=== PATIENT | female | born 1950 | race African-American/Black ===

== ENCOUNTER → 2016-03-22 | Emergency (ER) | payer MEDICARE, OTHER ==
[~2016-03-22] VITALS: Ht 170.2 cm; Wt 59.0 kg
[~2016-03-22] MED LIST: ACETAMINOPHEN-1 EAC1 ORAL; ACETAMINOPHEN-1 EAC2 ORAL; ALBUTEROL SULF8.5 GM INH; ALBUTEROL2.5 MG/3 M HHN; ALBUTEROL2.5 MG/3 M INH; ATARAX25 MG ORAL; AUGMENTIN 875-1 EAC1 ORAL; AZITHROMYCIN250 MG ORAL; Albuterol ud Inhalation HHN ONE; CAPTOPRIL PO; CAPTOPRIL5 GM MC; CIPROFLOXACIN500 M2 ORAL; COLACE100 MG ORAL; CORTISONE14 GM TP; FUROSEMIDE20 M1 ORAL; Ipratropium 0.02% Inh Soln 2.5ml UD HHN ONE; KEFLEX500 MG ORAL; LEVAQUIN500 MG ORAL; LEVAQUIN750 MG ORAL; LEVOFLOXAC250 MG/10 PO; MIRALAX17 G2 ORAL; NKM; NORCO 10/3251 EA ORAL; NORCO 5-325 TA1 EACH ORAL; NORCO 7.5-3251 EACH ORAL; Oxycodone/Acetaminophen 5-325 ORAL ONE; PEPCID20 MG ORAL; PERCOCET 5-3251 EACH ORAL; POTASSIUM CHLO20 ME1 ORAL; PREDNISONE10 M2 PO; PREDNISONE10 MG ORAL; PREDNISONE20 M1 PO; PREDNISONE20 MG ORAL; PREDNISONE5 MG ORAL; PREDNISONE50 MG ORAL; PredniSONE 20mg tab ORAL ONE; SOMA350 MG PO; TRAMADOL HCL50 MG ORAL; VENTOLIN HFA18 GM INH
[2016-03-22 06:33] VITALS: BP 204/118
--- NOTE | 2016-03-22 06:37 | Emergency Room Report ---
History of Present Illness General Chief Complaint: Pain Source: Patient Present Illness HPI Patient presents with lower back pain. She's had 2 back surgeries in the past. There is no specific trauma and she's been taking Tylenol No. 4 however it's not been helping adequately. The pain radiates down both legs. She states that she has degenerative disc disease and sciatica. She denies any fevers. She denies any incontinence, increased weakness, blood thinners, tumors or incontinence. There is no saddle numbness. The pain is 8/10, burning, constant and worsened when she's changing position. The patient also has lupus. She is taking medication for this. She says of bleeding from a lesion in her scalp. Some minimal bleeding. The patient also takes prednisone for her lupus. She is also on another medication that she is seeing a new doctor at this time. She denies dysuria or change in bowel habits. She walks with a walker She also complains but wheezing and problems with the right chest. She's not had colored phlegm. She uses an inhaler no nebulizer at home. To cigarette smoke around her but she has not smoked for many years. She does have a history of COPD. Allergies: Coded Allergies: KETOROLAC TROMETHAMINE (Verified Allergy, Severe, Anaphylaxis, 11/09/11) PENICILLINS (Verified Allergy, Severe, Anaphylaxis, 11/09/11) TETRACYCLINE (Verified Allergy, Severe, Anaphylaxis, 11/09/11) HALOPERIDOL (Verified Allergy, Intermediate, Anaphylaxis, 11/09/11) HALOPERIDOL LACTATE (Verified Allergy, Intermediate, Anaphylaxis, 11/09/11) ERYTHROMYCIN BASE (Verified Allergy, Mild, 07/15/13) AMPICILLIN (Verified Allergy, Unknown, 08/05/15) IBUPROFEN (Verified Allergy, Unknown, 08/05/15) Patient History Past Medical History: see triage record, other - lupus Past Surgical History: other - back surgery Social History: Reports: smoking - Prior Social History Narrative She came with her Last Menstrual Period: unk Now: No Reviewed Nursing Documentation: PMH: Agreed, PSxH: Agreed Nursing Documentation-PMH Hx Hypertension: Yes Hx Pacemaker: No Hx Asthma: No Hx COPD: Yes Hx Diabetes: No Hx Cancer: No Hx Gastrointestinal Problems: Yes - Hepatitis C, Gall bladder removed, additional abd surgury (ukn) Hx Dialysis: No Hx Neurological Problems: No - spine surgery in 1993 and 2011 Hx Cerebrovascular Accident: No Hx Seizures: Yes Review of Systems All Other Systems: negative except mentioned in HPI Physical Exam Vital Signs Date Time Temp Pulse Resp B/P Pulse Ox O2 Delivery O2 Flow Rate FiO2 03/22/16 06:21 98.4 110 22 95 Room Air 03/22/16 06:33 204/118 03/22/16 06:37 21 Sp02 EP Interpretation: reviewed, normal General Appearance: well appearing, no apparent distress, GCS 15 Head: normocephalic Eyes: bilateral eye PERRL, bilateral eye normal inspection ENT: moist mucus membranes, other - malar rash Neck: supple Respiratory: wheezing, expiration, inspiration Cardiovascular #1: tachycardia Cardiovascular #2: 2+ radial (R) Gastrointestinal: normal inspection, normal bowel sounds, non tender, no mass, non-distended Musculoskeletal: gait/station normal, normal range of motion, other - Paraspinous muscle tenderness and lumbar tenderness. Range of motion is good. Surgical scar Neurologic: alert, oriented x3, motor strength/tone normal, DTRs symmetric, sensory intact, cerebellar normal, normal gait, speech normal Psychiatric: mood/affect normal Skin: warm/dry, other - Alopecia in the geographic distribution with some excoriation and area where there had been waiting on the scalp. She also has a malar rash. Medical Decision Making Diagnostic Impression: Primary Impression: SLE exacerbation Additional Impressions: Back pain Qualified Codes: M54.41 - Lumbago with sciatica, right side; M54.42 - Lumbago with sciatica, left side; G89.29 - Other chronic pain Bronchospasm ER Course The patient presents with worsening back pain. She has a history of lupus. There is no specific causative event. Differential includes strain, worsening back pain, degenerative disc disease, UTI and exacerbation of lupus. In addition she has wheezing and a cough. Differential includes pneumonia, COPD exacerbation and bronchitis. She does not have symptoms of influenza this time. Laboratory will be obtained, an EKG will be obtained and also chest x- ray. She'll be treated with albuterol and Atrovent and prednisone. In addition she'll be given a Percocet orally. Labs significant for elevated ESR. No evidence of infection. Patient sleeping, but when awakened, she requests more pain medicine. Second percocet given. Improved. Patient stable for outpatient observation and treatment. Laboratory Tests Test 03/22/16 07:05 03/22/16 08:15 Urine Color Yellow Urine Appearance Slightly cloudy Urine pH 6 (4.5-8.0) Urine Specific [place] 1.010 (1.005-1.035) Urine Protein 2+ (NEGATIVE) H Urine Glucose (UA) Negative (NEGATIVE) Urine Ketones Negative (NEGATIVE) Urine Occult Blood Negative (NEGATIVE) Urine Nitrite Negative (NEGATIVE) Urine Bilirubin Negative (NEGATIVE) Urine Urobilinogen 1 MG/DL (0.0-1.0) H Urine Leukocyte Esterase 1+ (NEGATIVE) H Urine RBC 0-2 /HPF (0 - 2) Urine WBC 2-4 /HPF (0 - 2) Urine Squamous Epithelial Cells Moderate /LPF (NONE/OCC) H Urine Bacteria Few /HPF (NONE) Urine Opiates Screen Positive (NEGATIVE) H Urine Barbiturates Screen Negative (NEGATIVE) Phencyclidine (PCP) Screen Negative (NEGATIVE) Urine Amphetamines Screen Negative (NEGATIVE) Urine Benzodiazepines Screen Negative (NEGATIVE) Urine Cocaine Screen Negative (NEGATIVE) Urine Marijuana (THC) Screen Negative (NEGATIVE) White Blood Count 4.2 K/UL (4.8-10.8) L Red Blood Count 4.25 M/UL (4.20-5.40) Hemoglobin 13.6 G/DL (12.0-16.0) Hematocrit 43.4 % (37.0-47.0) Mean Corpuscular Volume 102 FL (80-99) H Mean Corpuscular Hemoglobin 32.1 PG (27.0-31.0) H Mean Corpuscular Hemoglobin Concent 31.4 G/DL (32.0-36.0) L Red Cell Distribution Width 15.5 % (11.6-14.8) H Platelet Count 215 K/UL (150-450) Mean Platelet Volume 6.7 FL (6.5-10.1) Neutrophils (%) (Auto) 49.4 % (45.0-75.0) Lymphocytes (%) (Auto) 41.3 % (20.0-45.0) Monocytes (%) (Auto) 8.0 % (1.0-10.0) Eosinophils (%) (Auto) 0.2 % (0.0-3.0) Basophils (%) (Auto) 1.1 % (0.0-2.0) Erythrocyte Sedimentation Rate 48 MM/HR (0-30) H Sodium Level 143 mEQ/L (135-145) Potassium Level 3.3 mEQ/L (3.4-4.9) L Chloride Level 101 mEQ/L (98-107) Carbon Dioxide Level 26 mEQ/L (20-30) Anion Gap 16 (5-15) H Blood Urea Nitrogen 10 mg/dL (7-23) Creatinine 0.7 mg/dL (0.5-0.9) Estimate Glomerular Filtration Rate > 60 mL/min (>60) Glucose Level 114 mg/dL (74-106) H Calcium Level 9.6 mg/dL (8.6-10.2) Total Bilirubin 0.7 mg/dL (0.0-1.2) Aspartate Amino Transferase (AST) 33 U/L (5-40) Alanine Aminotransferase (ALT) 31 U/L (3-33) Alkaline Phosphatase 97 U/L (35-104) Total Creatine Kinase 74 U/L (26-140) Troponin I < 0.30 ng/mL (<=0.30) Pro-B-Type Natriuretic Peptide 221 pg/mL (0-125) H Total Protein 7.6 g/dL (6.6-8.7) Albumin 4.1 g/dL (3.5-5.2) Globulin 3.5 g/dL Albumin/Globulin Ratio 1.1 (1.0-2.7) EKG Diagnostic Results Rate: normal Rhythm: NSR ST Segments: no acute changes - LVH Rhythm Strip Diag. Results EP Interpretation: yes Rhythm: NSR, other - Rate 79, PVC Chest X-Ray Diagnostic Results EP Interpretation: Yes Findings: no consolidation, no effusion, no pneumothorax, no acute cardiopulmonary disease Number of Views: 1 Last Vital Signs Date Time Temp Pulse Resp B/P Pulse Ox O2 Delivery O2 Flow Rate FiO2 03/22/16 07:20 98.4 03/22/16 07:20 83 17 188/83 100 Room Air 03/22/16 06:59 21 Status: improved Disposition: HOME, SELF-CARE Condition: Improved Scripts Tramadol Hcl* (ULTRAM*) 50 Mg Tablet 50 MG ORAL Q6H Y for For Pain, #16 TAB 0 Refills Prov: Karl Guan M.D. 03/22/16 Prednisone* (PREDNISONE*) 10 Mg Tablet 10 MG ORAL DAILY, #22 TAB 0 Refills 4 po QD X 2, 3 po QD X 2, 2 po QD X 2, 1 po QD X 4 Prov: Karl Guan M.D. 03/22/16 Referrals: NOT CHOSEN KELSEA/,REFERRING (PCP) Karl Guan M.D. Mar 22, 2016 06:37
[2016-03-22 07:20] VITALS: BP 188/83
[2016-03-22 07:31] LABS: KETONES,URINE NEGATIVE (NEGATIVE); LEUKOCYTE ESTERASE ,URINE 1+ (NEGATIVE); NITRITE,URINE NEGATIVE (NEGATIVE); PH,URINE 6 (4.5-8.0); PROTEIN,URINE 2+ (NEGATIVE); UROBILINOGEN,URINE 1 MG/DL (0.0-1.0)
[2016-03-22 07:48] LABS: APPEARANCE,URINE SLIGHTLY CLOUDY
[2016-03-22 07:49] LABS: BACTERIA,URINE FEW /HPF; RBC,URINE 0-2 /HPF (0 - 2); SQUAMOUS EPITHELIAL CELL,UR MODERATE /LPF (NONE/OCC)
[2016-03-22 08:31] LABS: BASOPHILS % (AUTO) 1.1 % (0.0-2.0); EOSINOPHILS % (AUTO) 0.2 % (0.0-3.0); LYMPHOCYTES % (AUTO) 41.3 % (20.0-45.0); MEAN CORPUSCULAR HEMOGLOBIN 32.1 PG (27.0-31.0); MEAN CORPUSCULAR HGB CONC 31.4 G/DL (32.0-36.0); MEAN CORPUSCULAR VOLUME 102 FL (80-99); MEAN PLATELET VOLUME 6.7 FL (6.5-10.1); NEUTROPHILS % (AUTO) 49.4 % (45.0-75.0); PLATELET COUNT 215 K/UL (150-450); RED BLOOD COUNT 4.25 M/UL (4.20-5.40); RED CELL DISTRIBUTION WIDTH 15.5 % (11.6-14.8); WHITE BLOOD COUNT 4.2 K/UL (4.8-10.8)
[2016-03-22 08:46] LABS: ALANINE AMINOTRANSFERASE 31 U/L (3-33); ALBUMIN/GLOBULIN RATIO 1.1 (1.0-2.7); ANION GAP 16 (5-15); ASPARTATE AMINO TRANSFERASE 33 U/L (5-40); CALCIUM 9.6 mg/dL (8.6-10.2); CARBON DIOXIDE 26 mEQ/L (20-30); CHLORIDE 101 mEQ/L (98-107); CREATININE 0.7 mg/dL (0.5-0.9); GLOMERULAR FILTRATION RATE > 60 mL/min (>60); HEMOLYSIS 3; POTASSIUM 3.3 mEQ/L (3.4-4.9); SODIUM 143 mEQ/L (135-145); TOTAL PROTEIN 7.6 g/dL (6.6-8.7)
[2016-03-22 08:53] LABS: TROPONIN I < 0.30 ng/mL (<=0.30)
[2016-03-22 09:41] LABS: ERYTHROCYTE SEDIMENTATION RATE 48 MM/HR (0-30)
--- NOTE | 2016-03-22 14:15 | Diagnostic Imaging Report ---
Indication: COUGH Technique: One view of the chest Comparison: 12/22/2015 Findings: Atelectatic changes are seen in the lung bases. The heart size is normal. The aorta is tortuous and calcified. The heart size is normal. No significant change Impression: No acute process
--- NOTE | 2016-04-23 03:26 | Cardiology Report ---
APPROVED REPORT EKG Measurement Heart [id number] Sinus rhythm with occasional premature ventricular complexes Left ventricular hypertrophy with repolarization abnormality Abnormal ECG
== END | disposition home or self-care (01) ==
LOC: EMR 06:25
DX: M32.9 Systemic lupus erythematosus, unspecified (principal); M54.41 Lumbago with sciatica, right side; M54.42 Lumbago with sciatica, left side; G89.29 Other chronic pain; J98.01 Acute bronchospasm; B19.20 Unspecified viral hepatitis C without hepatic coma; Z90.49 Acquired absence of other specified parts of digestive tract; J44.9 Chronic obstructive pulmonary disease, unspecified; I10 Essential (primary) hypertension; Z88.6 Allergy status to analgesic agent; Z88.0 Allergy status to penicillin; Z88.1 Allergy status to other antibiotic agents; Z88.8 Allergy status to other drugs, medicaments and biological substances
CPT/HCPCS: 36415; 71010; 80053; 80300; 81003; 82550; 83880; 84484; 85025; 85651; 93005; 94640; 94664; 99284

== ENCOUNTER 2016-06-09 06:09 | Emergency (ER) | payer MEDICARE, OTHER ==
[~2016-06-09] VITALS: Ht 167.6 cm; Wt 59.0 kg
[~2016-06-09 06:09] MED LIST changes: -Albuterol ud Inhalation HHN ONE; -Ipratropium 0.02% Inh Soln 2.5ml UD HHN ONE; -Oxycodone/Acetaminophen 5-325 ORAL ONE; -PredniSONE 20mg tab ORAL ONE
[2016-06-09 06:15] VITALS: BP 171/90
[2016-06-09] MEDS ORDERED: Morphine Sulfate 4mg/ml Inj IVP ONE ×2 (06:30→08:15)
[2016-06-09] MEDS ORDERED: Solu-MEDROL 125mg Inj IVP ONE (06:30)
--- NOTE | 2016-06-09 06:50 | Emergency Room Report ---
History of Present Illness General Chief Complaint: General Complaint Source: Patient Present Illness HPI The patient presents with shortness of breath for 3 days. It's intermittent and dyspnea on exertion. History of lupus and believes that it's related to pain as opposed to any problems heart and lungs. She hasn't had any fevers or productive cough. She also has a history of COPD. She's taking prednisone currently for the lupus and also her lungs. There's no productive phlegm. There's no chest pressure or pain with exertion. It's worse and when she has more pain in her joints and also her abdomen. Chest nausea vomiting diarrhea dysuria. No fever or chills. Pain is 8/10 constant and not radiating. She's been taking tyl #4 at home No rashes aside from her usual lupus rashes in her scalp and across her nose. The lupus rashes are unchanged although she says it is more swelling there. There is no drainage. Has chronic lumbar pain after having 2 back surgeries. She uses a walker. The weakness in her lower extremities is not been changed. She is seeing a gag writer next Monday. Allergies: Coded Allergies: KETOROLAC TROMETHAMINE (Verified Allergy, Severe, Anaphylaxis, 11/09/11) PENICILLINS (Verified Allergy, Severe, Anaphylaxis, 11/09/11) TETRACYCLINE (Verified Allergy, Severe, Anaphylaxis, 11/09/11) HALOPERIDOL (Verified Allergy, Intermediate, Anaphylaxis, 11/09/11) HALOPERIDOL LACTATE (Verified Allergy, Intermediate, Anaphylaxis, 11/09/11) ERYTHROMYCIN BASE (Verified Allergy, Mild, 07/15/13) AMPICILLIN (Verified Allergy, Unknown, 08/05/15) IBUPROFEN (Verified Allergy, Unknown, 08/05/15) Patient History Past Medical History: see triage record Past Surgical History: other - lamenectomy Social History Narrative brought by Now: No Reviewed Nursing Documentation: PMH: Agreed, PSxH: Agreed Nursing Documentation-PMH Hx Hypertension: Yes Hx Pacemaker: No Hx Asthma: No Hx COPD: Yes Hx Diabetes: No Hx Cancer: No Hx Gastrointestinal Problems: Yes - Hepatitis C, Gall bladder removed, additional abd surgury (ukn) Hx Dialysis: No Hx Neurological Problems: No - spine surgery in 1993 and 2011 Hx Cerebrovascular Accident: No Hx Seizures: Yes Review of Systems All Other Systems: negative except mentioned in HPI Physical Exam Vital Signs Date Time Temp Pulse Resp B/P Pulse Ox O2 Delivery O2 Flow Rate FiO2 06/09/16 06:12 98.8 90 22 188/91 97 Room Air Sp02 EP Interpretation: reviewed, normal General Appearance: well appearing, no apparent distress, GCS 15 Head: normocephalic Eyes: bilateral eye PERRL, bilateral eye normal inspection ENT: moist mucus membranes Neck: supple Respiratory: lungs clear, normal breath sounds Cardiovascular #1: regular rate, rhythm Cardiovascular #2: 2+ radial (R) Gastrointestinal: normal inspection, normal bowel sounds, non tender, no mass, non-distended Musculoskeletal: digits/nails normal, gait/station normal, normal range of motion, other - Genitalia is without erythema or warmth. Range of motion is good. She's chronic back pain is muscular spasm in the lumbar area. Neurologic: alert, oriented x3, grossly normal Psychiatric: mood/affect normal Skin: other - malar and sclap rashes, no erythema or fluctuance - lame scar back Medical Decision Making Diagnostic Impression: Primary Impression: Exacerbation of chronic pain Additional Impression: Lupus Qualified Codes: M32.8 - Other forms of systemic lupus erythematosus ER Course Patient presents with dyspnea that she feels is related to her lupus flare. The productive cough. Differential includes pneumonia, bronchitis, exacerbation of COPD, pleurisy costochondritis, exacerbation of lupus. The patient was evaluated EKG, labs chest x-ray. Retrieves IV hydration, Solu- Medrol and also analgesia. EKG and labs unremarkable. Improved with analgesia and solumedrol. Ambulatory without dyspnea. Patient stable for outpatient observation and treatment. Laboratory Tests Test 06/09/16 06:45 White Blood Count 4.2 K/UL (4.8-10.8) L Red Blood Count 4.12 M/UL (4.20-5.40) L Hemoglobin 13.4 G/DL (12.0-16.0) Hematocrit 42.5 % (37.0-47.0) Mean Corpuscular Volume 103 FL (80-99) H Mean Corpuscular Hemoglobin 32.6 PG (27.0-31.0) H Mean Corpuscular Hemoglobin Concent 31.5 G/DL (32.0-36.0) L Red Cell Distribution Width 16.8 % (11.6-14.8) H Platelet Count 225 K/UL (150-450) Mean Platelet Volume 6.3 FL (6.5-10.1) L Neutrophils (%) (Auto) 49.8 % (45.0-75.0) Lymphocytes (%) (Auto) 40.2 % (20.0-45.0) Monocytes (%) (Auto) 8.5 % (1.0-10.0) Eosinophils (%) (Auto) 0.7 % (0.0-3.0) Basophils (%) (Auto) 0.8 % (0.0-2.0) Urine Color Pale yellow Urine Appearance Clear Urine pH 6.5 (4.5-8.0) Urine Specific [place] 1.010 (1.005-1.035) Urine Protein 2+ (NEGATIVE) H Urine Glucose (UA) Negative (NEGATIVE) Urine Ketones Negative (NEGATIVE) Urine Occult Blood Negative (NEGATIVE) Urine Nitrite Negative (NEGATIVE) Urine Bilirubin Negative (NEGATIVE) Urine Urobilinogen Normal MG/DL (0.0-1.0) Urine Leukocyte Esterase Negative (NEGATIVE) Urine RBC 2-4 /HPF (0 - 2) H Urine WBC 0-2 /HPF (0 - 2) Urine Squamous Epithelial Cells Many /LPF (NONE/OCC) H Urine Bacteria Occasional /HPF (NONE) Sodium Level 145 mEQ/L (135-145) Potassium Level 3.2 mEQ/L (3.4-4.9) L Chloride Level 104 mEQ/L (98-107) Carbon Dioxide Level 25 mEQ/L (20-30) Anion Gap 16 (5-15) H Blood Urea Nitrogen 11 mg/dL (7-23) Creatinine 0.7 mg/dL (0.5-0.9) Estimate Glomerular Filtration Rate > 60 mL/min (>60) Glucose Level 89 mg/dL (74-106) Calcium Level 8.9 mg/dL (8.6-10.2) Total Bilirubin 0.6 mg/dL (0.0-1.2) Aspartate Amino Transferase (AST) 24 U/L (5-40) Alanine Aminotransferase (ALT) 12 U/L (3-33) Alkaline Phosphatase 82 U/L (35-104) Total Creatine Kinase 142 U/L (26-140) H Troponin I < 0.30 ng/mL (<=0.30) Pro-B-Type Natriuretic Peptide 170 pg/mL (0-125) H Total Protein 7.1 g/dL (6.6-8.7) Albumin 4.2 g/dL (3.5-5.2) Globulin 2.9 g/dL Albumin/Globulin Ratio 1.4 (1.0-2.7) Urine Opiates Screen Positive (NEGATIVE) H Urine Barbiturates Screen Negative (NEGATIVE) Phencyclidine (PCP) Screen Negative (NEGATIVE) Urine Amphetamines Screen Negative (NEGATIVE) Urine Benzodiazepines Screen Negative (NEGATIVE) Urine Cocaine Screen Negative (NEGATIVE) Urine Marijuana (THC) Screen Negative (NEGATIVE) EKG Diagnostic Results Rate: normal Rhythm: NSR ST Segments: no acute changes - lvh Rhythm Strip Diag. Results EP Interpretation: yes Rhythm: NSR, no PVC's, no ectopy Chest X-Ray Diagnostic Results EP Interpretation: Yes Findings: no consolidation, no effusion, no pneumothorax, no acute cardiopulmonary disease Number of Views: 1 Last Vital Signs Date Time Temp Pulse Resp B/P Pulse Ox O2 Delivery O2 Flow Rate FiO2 06/09/16 08:51 98.8 75 16 160/82 98 Room Air Status: improved Disposition: HOME, SELF-CARE Condition: Improved Karl Guan M.D. Jun 09, 2016 06:50
[2016-06-09 07:10] LABS: BASOPHILS % (AUTO) 0.8 % (0.0-2.0); EOSINOPHILS % (AUTO) 0.7 % (0.0-3.0); LYMPHOCYTES % (AUTO) 40.2 % (20.0-45.0); MEAN CORPUSCULAR HEMOGLOBIN 32.6 PG (27.0-31.0); MEAN CORPUSCULAR HGB CONC 31.5 G/DL (32.0-36.0); MEAN CORPUSCULAR VOLUME 103 FL (80-99); MEAN PLATELET VOLUME 6.3 FL (6.5-10.1); MONOCYTES % (AUTO) 8.5 % (1.0-10.0); NEUTROPHILS % (AUTO) 49.8 % (45.0-75.0); PLATELET COUNT 225 K/UL (150-450); RED BLOOD COUNT 4.12 M/UL (4.20-5.40); RED CELL DISTRIBUTION WIDTH 16.8 % (11.6-14.8); WHITE BLOOD COUNT 4.2 K/UL (4.8-10.8)
[2016-06-09 07:16] LABS: APPEARANCE,URINE CLEAR; KETONES,URINE NEGATIVE (NEGATIVE); LEUKOCYTE ESTERASE ,URINE NEGATIVE (NEGATIVE); NITRITE,URINE NEGATIVE (NEGATIVE); PH,URINE 6.5 (4.5-8.0); PROTEIN,URINE 2+ (NEGATIVE); UROBILINOGEN,URINE NORMAL MG/DL (0.0-1.0)
[2016-06-09 07:18] LABS: TROPONIN I < 0.30 ng/mL (<=0.30)
[2016-06-09 07:20] LABS: ALANINE AMINOTRANSFERASE 12 U/L (3-33); ALBUMIN/GLOBULIN RATIO 1.4 (1.0-2.7); ANION GAP 16 (5-15); ASPARTATE AMINO TRANSFERASE 24 U/L (5-40); CALCIUM 8.9 mg/dL (8.6-10.2); CARBON DIOXIDE 25 mEQ/L (20-30); CHLORIDE 104 mEQ/L (98-107); CREATININE 0.7 mg/dL (0.5-0.9); GLOMERULAR FILTRATION RATE > 60 mL/min (>60); HEMOLYSIS 5; POTASSIUM 3.2 mEQ/L (3.4-4.9); SODIUM 145 mEQ/L (135-145); TOTAL PROTEIN 7.1 g/dL (6.6-8.7)
[2016-06-09 07:39] LABS: BACTERIA,URINE OCCASIONAL /HPF; SQUAMOUS EPITHELIAL CELL,UR MANY /LPF (NONE/OCC); WBC,URINE 0-2 /HPF (0 - 2)
[2016-06-09 08:50] VITALS: BP 160/82
[2016-06-09 08:51] VITALS: BP 160/82
--- NOTE | 2016-06-09 10:29 | Diagnostic Imaging Report ---
Indication: Chest pain Technique: One view of the chest Comparison: 03/22/2016 Findings: Bilateral basilar reticular appearing opacities and bronchial wall thickening appears similar to the prior study, likely chronic. A large bulla is again demonstrated in the right lung apex. The heart is upper limits normal in size. Aorta tortuous and calcified. Upper mediastinum is unremarkable. Findings are unchanged Impression: Chronic appearing findings as noted, likely representing COPD changes. Superimposed acute disease at either lung base not completely excludable, however. Recommend correlation with clinical findings No definite acute process otherwise
--- NOTE | 2016-06-13 22:40 | Cardiology Report ---
APPROVED REPORT EKG Measurement Heart [id number] ID [id number] Normal sinus rhythm Left ventricular hypertrophy with repolarization abnormality Abnormal ECG
== END 2016-06-09 08:54 | disposition home or self-care (01) ==
LOC: EMR 06:35
DX: R52 Pain, unspecified (principal); G89.29 Other chronic pain; M32.8 Other forms of systemic lupus erythematosus; I10 Essential (primary) hypertension; J44.9 Chronic obstructive pulmonary disease, unspecified; B19.20 Unspecified viral hepatitis C without hepatic coma; Z90.49 Acquired absence of other specified parts of digestive tract; Z88.6 Allergy status to analgesic agent; Z88.0 Allergy status to penicillin; Z88.1 Allergy status to other antibiotic agents; Z88.8 Allergy status to other drugs, medicaments and biological substances
CPT/HCPCS: 36415; 71010; 80053; 80300; 81003; 82550; 83880; 84484; 85025; 93005; 96374; 96375; 99284; J2270; J2405; J2930

== ENCOUNTER 2016-06-17 06:11 | Emergency (ER) | payer MEDICARE, OTHER ==
[~2016-06-17] VITALS: Ht 167.6 cm; Wt 59.0 kg
[2016-06-17] MEDS ORDERED: Morphine Sulfate 4mg/ml Inj IM ONE (07:00)
--- NOTE | 2016-06-17 08:14 | Emergency Room Report ---
History of Present Illness General Chief Complaint: General Complaint Source: Patient Present Illness HPI Patient present with complaints of diffuse body pain Reports that she feels that her lupus is flaring up Denies any vomiting or diarrhea Denies any chest pain Denies any shortness of breath Patient has previous history of COPD as well Upon initial evaluation patient shows me a paper with a strike warfare/missile systems officer name and contact information reports that she is going to be in touch with that physician Denies any fall or trauma denies any fevers or chills Pain is 5/10 diffuse Mainly in the shoulders lower back Bilateral legs Allergies: Coded Allergies: KETOROLAC TROMETHAMINE (Verified Allergy, Severe, Anaphylaxis, 11/09/11) PENICILLINS (Verified Allergy, Severe, Anaphylaxis, 11/09/11) TETRACYCLINE (Verified Allergy, Severe, Anaphylaxis, 11/09/11) HALOPERIDOL (Verified Allergy, Intermediate, Anaphylaxis, 11/09/11) HALOPERIDOL LACTATE (Verified Allergy, Intermediate, Anaphylaxis, 11/09/11) ERYTHROMYCIN BASE (Verified Allergy, Mild, 07/15/13) AMPICILLIN (Verified Allergy, Unknown, 08/05/15) IBUPROFEN (Verified Allergy, Unknown, 08/05/15) Patient History Past Medical History: see triage record Pertinent Family History: none Last Menstrual Period: Menopause Now: No Reviewed Nursing Documentation: PMH: Agreed, PSxH: Agreed Nursing Documentation-PMH Hx Hypertension: Yes Hx Pacemaker: No Hx Asthma: No Hx COPD: Yes Hx Diabetes: No Hx Cancer: No Hx Gastrointestinal Problems: Yes - Hepatitis C, Gall bladder removed, additional abd surgury (ukn) Hx Dialysis: No Hx Neurological Problems: No - spine surgery in 1993 and 2011 Hx Cerebrovascular Accident: No Hx Seizures: Yes Review of Systems All Other Systems: negative except mentioned in HPI Physical Exam Vital Signs Date Time Temp Pulse Resp B/P Pulse Ox O2 Delivery O2 Flow Rate FiO2 06/17/16 06:19 98.4 109 16 172/82 99 Room Air Sp02 EP Interpretation: reviewed, normal General Appearance: well appearing, no apparent distress Head: normocephalic, atraumatic Eyes: bilateral eye EOMI, bilateral eye PERRL ENT: hearing grossly normal, normal pharynx, TMs + canals normal, uvula midline Neck: full range of motion, supple, no meningismus, no bony tend Respiratory: no rhonchi, no respiratory distress, no retraction, no accessory muscle use, crackles - Fine crackles bilaterally Cardiovascular #1: normal peripheral pulses, regular rate, rhythm, no edema, no gallop, no JVD, no murmur Gastrointestinal: normal bowel sounds, non tender, soft, no mass, no organomegaly, non-distended, no guarding, no hernia, no pulsatile mass, no rebound Genitourinary: no CVA tenderness Musculoskeletal: normal inspection - Patient ambulate with a walker no obvious focal deficit Neurologic: oriented x3, responsive, back seam stitcher III-XII nml as tested, motor strength/ tone normal, sensory intact Psychiatric: mood/affect normal Skin: palpation normal, other - Similar to previous rash, plaque over the nasal bridge area Lymphatic: normal inspection, no adenopathy Medical Decision Making Diagnostic Impression: Primary Impression: myalgia ER Course Multiple differentials were considered Including but not limited to lupus flare, sepsis, rhabdomyolysis Patient is otherwise hemodynamically stable has a benign medical evaluation I did review the patient on [employer] system and the patient has had multiple medications filled by multiple providers this is concerning Patient was provided pain medicine in the emergency room However I did discuss with her the need for outpatient followup, and appropriate pain management care as needed Last Vital Signs Date Time Temp Pulse Resp B/P Pulse Ox O2 Delivery O2 Flow Rate FiO2 06/17/16 06:19 98.4 109 16 172/82 99 Room Air Status: improved Disposition: HOME, SELF-CARE Condition: Improved Referrals: NOT CHOSEN [facility]/MD,REFERRING (PCP) Patient Instructions: Muscle Pain, Adult, Systemic Lupus Erythematosus, Adult Additional Instructions: Patient is provided with the discharge instructions notified to follow up with primary doctor in the next 2-3 days otherwise return to the er with any worsening symptoms. Please note that this report is being documented using [employer] technology. This can lead to erroneous entry secondary to incorrect interpretation by the dictating instrument. PATY BARRETT D.O. Jun 17, 2016 08:14
[2016-06-17 08:52] VITALS: BP 145/65
[2016-06-17 08:53] VITALS: BP 145/65
== END 2016-06-17 08:54 | disposition home or self-care (01) ==
LOC: EMR 07:09
DX: M79.1 Myalgia (principal); J44.9 Chronic obstructive pulmonary disease, unspecified; I10 Essential (primary) hypertension; Z86.19 Personal history of other infectious and parasitic diseases; Z90.49 Acquired absence of other specified parts of digestive tract; Z88.6 Allergy status to analgesic agent; Z88.0 Allergy status to penicillin; Z88.8 Allergy status to other drugs, medicaments and biological substances
CPT/HCPCS: 96372; 99283; J2270

== ENCOUNTER 2016-07-25 06:35 | Emergency (ER) | payer MEDICARE, OTHER ==
[~2016-07-25] VITALS: Ht 170.2 cm; Wt 58.5 kg
[2016-07-25] MEDS ORDERED: HYDROmorphone 1mg/ml Carpuject IVP ONE (06:45)
[2016-07-25] MEDS ORDERED: Solu-MEDROL 125mg Inj IVP ONE (06:45)
--- NOTE | 2016-07-25 06:52 | Emergency Room Report ---
History of Present Illness General Chief Complaint: Generalized Weakness Source: Patient Present Illness HPI The patient presents with body pain. All of her joints are sore at this time. She was recently hospitalized at [facility] for exacerbation of her lupus. She was hospitalized four and a half days. She was discharged on Monday, it is Monday today. Denies any fever. The patient also complains about right-sided headache and altered vision. She says it's somewhat blurry. It starts where she has a rash on her right parietal area of. Radiates into her face. She denies any fevers or chills. There's no cough. Chest chest pain, nausea, vomiting, diarrhea. Denies dysuria. The joints involved with the pain are her wrists knees and ankles. Addition she feels generalized weakness. She is ambulatory. She walks with a walker. She states she can't fill her prescriptions until July 28. Allergies: Coded Allergies: KETOROLAC TROMETHAMINE (Verified Allergy, Severe, Anaphylaxis, 11/09/11) PENICILLINS (Verified Allergy, Severe, Anaphylaxis, 11/09/11) TETRACYCLINE (Verified Allergy, Severe, Anaphylaxis, 11/09/11) HALOPERIDOL (Verified Allergy, Intermediate, Anaphylaxis, 11/09/11) HALOPERIDOL LACTATE (Verified Allergy, Intermediate, Anaphylaxis, 11/09/11) ERYTHROMYCIN BASE (Verified Allergy, Mild, 07/15/13) AMPICILLIN (Verified Allergy, Unknown, 08/05/15) IBUPROFEN (Verified Allergy, Unknown, 08/05/15) Patient History Past Medical History: see triage record Social History: Denies: smoking - Prior smoker Social History Narrative Last Menstrual Period: NONE Reviewed Nursing Documentation: PMH: Agreed, PSxH: Agreed Nursing Documentation-PMH Hx Hypertension: Yes Hx Pacemaker: No Hx Asthma: No Hx COPD: Yes - EMPHYSEMA Hx Diabetes: No Hx Cancer: No Hx Dialysis: No Hx Cerebrovascular Accident: No Hx Seizures: Yes Review of Systems All Other Systems: negative except mentioned in HPI Physical Exam Vital Signs Date Time Temp Pulse Resp B/P Pulse Ox O2 Delivery O2 Flow Rate FiO2 07/25/16 06:40 98.4 100 22 151/83 94 Room Air Sp02 EP Interpretation: reviewed, normal General Appearance: well appearing, no apparent distress, GCS 15 Head: normocephalic Eyes: bilateral eye PERRL, bilateral eye normal inspection ENT: moist mucus membranes Neck: supple Respiratory: lungs clear, normal breath sounds Cardiovascular #1: regular rate, rhythm Cardiovascular #2: 2+ radial (R) Gastrointestinal: normal inspection, normal bowel sounds, non tender, no mass, non-distended Musculoskeletal: back normal, gait/station normal - With walker bent over, normal range of motion Neurologic: alert, oriented x3, motor strength/tone normal, DTRs symmetric, sensory intact Psychiatric: anxious Skin: normal inspection, warm/dry, other - malar rash and alopecia Medical Decision Making Diagnostic Impression: Primary Impression: Lupus Qualified Codes: M32.19 - Other organ or system involvement in systemic lupus erythematosus Additional Impressions: Blurred vision Drug-seeking behavior Headache Qualified Codes: R51 - Headache Lupus alopecia ER Course Patient presents with joint pain and headache with weakness. History Lupus. Differential includes exacerbation of lupus, occult infection, migraine, cluster headache amongst others. Evaluation with the with labs including EKG and urinalysis. Also we will obtain a chest x-ray a CT of the head. To be treated with IV hydration some Medrol and analgesia. Labs significant for nl WBC and ESR. CT no lesions. EKG and CXR unremarkable. Improved with treatment. Requested more pain medicine (when told po instead of parenteral, she argued to have IV). Patient stable for outpatient observation and treatment. Laboratory Tests Test 07/25/16 07:19 White Blood Count 5.3 K/UL (4.8-10.8) Red Blood Count 4.67 M/UL (4.20-5.40) Hemoglobin 15.1 G/DL (12.0-16.0) Hematocrit 48.9 % (37.0-47.0) H Mean Corpuscular Volume 105 FL (80-99) H Mean Corpuscular Hemoglobin 32.4 PG (27.0-31.0) H Mean Corpuscular Hemoglobin Concent 30.9 G/DL (32.0-36.0) L Red Cell Distribution Width 15.2 % (11.6-14.8) H Platelet Count 289 K/UL (150-450) Mean Platelet Volume 5.9 FL (6.5-10.1) L Neutrophils (%) (Auto) 38.6 % (45.0-75.0) L Lymphocytes (%) (Auto) 51.6 % (20.0-45.0) H Monocytes (%) (Auto) 6.8 % (1.0-10.0) Eosinophils (%) (Auto) 1.6 % (0.0-3.0) Basophils (%) (Auto) 1.4 % (0.0-2.0) Erythrocyte Sedimentation Rate 30 MM/HR (0-30) Prothrombin Time 12.3 SEC (9.30-11.50) H Prothrombin Time INR 1.2 (0.9-1.1) H PTT 26 SEC (23-33) Urine Color Yellow Urine Appearance Clear Urine pH 6 (4.5-8.0) Urine Specific [place] 1.015 (1.005-1.035) Urine Protein 1+ (NEGATIVE) H Urine Glucose (UA) Negative (NEGATIVE) Urine Ketones Negative (NEGATIVE) Urine Occult Blood Negative (NEGATIVE) Urine Nitrite Negative (NEGATIVE) Urine Bilirubin Negative (NEGATIVE) Urine Urobilinogen 4 MG/DL (0.0-1.0) H Urine Leukocyte Esterase 1+ (NEGATIVE) H Urine RBC 0-2 /HPF (0 - 2) Urine WBC 2-4 /HPF (0 - 2) Urine Squamous Epithelial Cells Few /LPF (NONE/OCC) Urine Bacteria Few /HPF (NONE) Sodium Level 140 mEQ/L (135-145) Potassium Level 3.9 mEQ/L (3.4-4.9) Chloride Level 98 mEQ/L (98-107) Carbon Dioxide Level 27 mEQ/L (20-30) Anion Gap 15 (5-15) Blood Urea Nitrogen 21 mg/dL (7-23) Creatinine 0.8 mg/dL (0.5-0.9) Estimate Glomerular Filtration Rate > 60 mL/min (>60) Glucose Level 79 mg/dL (74-106) Calcium Level 8.6 mg/dL (8.6-10.2) Total Bilirubin 0.6 mg/dL (0.0-1.2) Aspartate Amino Transferase (AST) 22 U/L (5-40) Alanine Aminotransferase (ALT) 22 U/L (3-33) Alkaline Phosphatase 102 U/L (35-104) Total Creatine Kinase 40 U/L (26-140) Troponin I < 0.30 ng/mL (<=0.30) Pro-B-Type Natriuretic Peptide 130 pg/mL (0-125) H Total Protein 7.2 g/dL (6.6-8.7) Albumin 3.8 g/dL (3.5-5.2) Globulin 3.4 g/dL Albumin/Globulin Ratio 1.1 (1.0-2.7) Urine Opiates Screen Positive (NEGATIVE) H Urine Barbiturates Screen Negative (NEGATIVE) Phencyclidine (PCP) Screen Negative (NEGATIVE) Urine Amphetamines Screen Negative (NEGATIVE) Urine Benzodiazepines Screen Negative (NEGATIVE) Urine Cocaine Screen Negative (NEGATIVE) Urine Marijuana (THC) Screen Negative (NEGATIVE) EKG Diagnostic Results Rate: normal Rhythm: NSR ST Segments: no acute changes - LVH Rhythm Strip Diag. Results EP Interpretation: yes Rhythm: NSR, no PVC's, no ectopy Chest X-Ray Diagnostic Results EP Interpretation: Yes Findings: no consolidation, no effusion, no pneumothorax, no acute cardiopulmonary disease Number of Views: 1 CT/MRI/US Diagnostic Results CT/MRI/US Diagnostic Results : Imaging Test Ordered: head Impression age related changes Last Vital Signs Date Time Temp Pulse Resp B/P Pulse Ox O2 Delivery O2 Flow Rate FiO2 07/25/16 11:04 98.2 81 16 127/77 99 Room Air Status: improved Disposition: HOME, SELF-CARE Condition: Improved Karl Guan M.D. July 25, 2016 06:52
[2016-07-25 07:17] VITALS: BP 132/79
[2016-07-25 07:35] LABS: APPEARANCE,URINE CLEAR; KETONES,URINE NEGATIVE (NEGATIVE); LEUKOCYTE ESTERASE ,URINE 1+ (NEGATIVE); NITRITE,URINE NEGATIVE (NEGATIVE); PH,URINE 6 (4.5-8.0); PROTEIN,URINE 1+ (NEGATIVE); UROBILINOGEN,URINE 4 MG/DL (0.0-1.0)
[2016-07-25 07:40] LABS: BASOPHILS % (AUTO) 1.4 % (0.0-2.0); EOSINOPHILS % (AUTO) 1.6 % (0.0-3.0); LYMPHOCYTES % (AUTO) 51.6 % (20.0-45.0); MEAN CORPUSCULAR HEMOGLOBIN 32.4 PG (27.0-31.0); MEAN CORPUSCULAR HGB CONC 30.9 G/DL (32.0-36.0); MEAN CORPUSCULAR VOLUME 105 FL (80-99); MEAN PLATELET VOLUME 5.9 FL (6.5-10.1); MONOCYTES % (AUTO) 6.8 % (1.0-10.0); NEUTROPHILS % (AUTO) 38.6 % (45.0-75.0); PLATELET COUNT 289 K/UL (150-450); RED BLOOD COUNT 4.67 M/UL (4.20-5.40); RED CELL DISTRIBUTION WIDTH 15.2 % (11.6-14.8); WHITE BLOOD COUNT 5.3 K/UL (4.8-10.8)
[2016-07-25 07:46] LABS: ALANINE AMINOTRANSFERASE 22 U/L (3-33); ALBUMIN/GLOBULIN RATIO 1.1 (1.0-2.7); ANION GAP 15 (5-15); ASPARTATE AMINO TRANSFERASE 22 U/L (5-40); CALCIUM 8.6 mg/dL (8.6-10.2); CARBON DIOXIDE 27 mEQ/L (20-30); CHLORIDE 98 mEQ/L (98-107); CREATININE 0.8 mg/dL (0.5-0.9); GLOMERULAR FILTRATION RATE > 60 mL/min (>60); HEMOLYSIS 10; POTASSIUM 3.9 mEQ/L (3.4-4.9); SODIUM 140 mEQ/L (135-145); TOTAL PROTEIN 7.2 g/dL (6.6-8.7); TROPONIN I < 0.30 ng/mL (<=0.30)
[2016-07-25 07:47] LABS: INR 1.2 (0.9-1.1); PROTHROMBIN TIME 12.3 SEC (9.30-11.50)
[2016-07-25 08:01] LABS: BACTERIA,URINE FEW /HPF; RBC,URINE 0-2 /HPF (0 - 2); SQUAMOUS EPITHELIAL CELL,UR FEW /LPF (NONE/OCC)
[2016-07-25 08:59] LABS: ERYTHROCYTE SEDIMENTATION RATE 30 MM/HR (0-30)
--- NOTE | 2016-07-25 09:11 | Diagnostic Imaging Report ---
Indication: Headache Technique: Contiguous 5 mm thick transaxial imaging of the head obtained in a Siemens Sensation [address] scanner. Soft tissue and bone windows generated. Total Dose length Product (DLP): [address] Dose Index Volume (CTDIvol): 70.38 mGy Comparison: none Findings: There is mild prominence of the ventricles, basal cisterns, and cerebral sulci consistent with atrophy. Mild, nonspecific, white matter hypoattenuation is noted throughout the brain consistent with chronic small vessel disease. There is no midline shift, edema, acute hemorrhage, mass effect, or abnormal extra-axial fluid collections. The bones are unusually patchy and heterogeneous with areas of demineralization noted. Several tiny lucencies are scattered particularly within the calvaria. Impression: No acute intracranial bleed, mass effect or edema. Abnormal bones with patchy demineralization noted. 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 Mild atrophy of the brain. Nonspecific white matter hypoattenuation probably due to chronic small vessel disease. The CT scanner at [facility] is accredited by the [employer] and the scans are performed using dose optimization techniques as appropriate to a performed exam including Automatic Exposure control.
[2016-07-25 10:30] VITALS: BP 127/77
[2016-07-25] MEDS: Oxycodone/Acetaminophen 5-325 ORAL ONE ×2 (10:37→10:39)
[2016-07-25 11:04] VITALS: BP 127/77
--- NOTE | 2016-07-26 07:52 | Cardiology Report ---
APPROVED REPORT EKG Measurement Heart [id number] Normal sinus rhythm Possible Left atrial enlargement Left ventricular hypertrophy with repolarization abnormality Abnormal ECG
--- NOTE | 2016-07-26 09:20 | Diagnostic Imaging Report ---
Indication: Chest Pain Comparison: 06/09/16 A single view chest radiograph was obtained. Findings: Emphysematous changes are noted in the upper lobes which appear hyperlucent. Interstitial prominence at the lung bases. Cardiomegaly is present. Bones are osteopenic. Impression: Chronic lung disease. No significant change
== END 2016-07-25 11:04 | disposition home or self-care (01) ==
LOC: EMR 07:06
DX: M32.9 Systemic lupus erythematosus, unspecified (principal); H53.8 Other visual disturbances; R51 Headache; R53.1 Weakness; Z76.5 Malingerer [conscious simulation]; Z88.6 Allergy status to analgesic agent; Z88.0 Allergy status to penicillin; Z88.8 Allergy status to other drugs, medicaments and biological substances; J43.9 Emphysema, unspecified; G31.9 Degenerative disease of nervous system, unspecified
CPT/HCPCS: 36415; 70450; 71010; 80053; 80300; 81003; 82550; 83880; 84484; 85025; 85610; 85651; 85730; 93005; 99284; J1170; J2930

== ENCOUNTER 2016-08-31 06:10 | Emergency (ER) | payer MEDICARE, OTHER ==
[~2016-08-31] VITALS: Ht 170.2 cm; Wt 59.0 kg
[2016-08-31] MEDS ORDERED: Ipratropium 0.02% Inh Soln 2.5ml UD HHN ONE (06:45)
[2016-08-31] MEDS ORDERED: Solu-MEDROL 125mg Inj IVP ONE (06:45)
[2016-08-31] MEDS ORDERED: Albuterol ud Inhalation HHN ONE (06:45)
[2016-08-31] MEDS ORDERED: HYDROmorphone 1mg/ml Carpuject IVP ONE (06:45)
--- NOTE | 2016-08-31 06:48 | Emergency Room Report ---
History of Present Illness General Chief Complaint: Pain Source: Patient Present Illness HPI Patient presents with 2 days of worsening of her lupus pain. She feels it mainly in her knees and also her hands. Denies any fevers. She does smoke and has a cough with wheezing. There's no vomiting or diarrhea. The pain is severe and constant. She also has pain in her rashes on her scalp. 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 Has appointment next week. His chronic back pain is able to ambulate with a walker. This pain is unchanged. No fevers, productive phlegm, sore throat, dysuria, NVD, abdominal pain. Allergies: Coded Allergies: KETOROLAC TROMETHAMINE (Verified Allergy, Severe, Anaphylaxis, 11/09/11) PENICILLINS (Verified Allergy, Severe, Anaphylaxis, 11/09/11) TETRACYCLINE (Verified Allergy, Severe, Anaphylaxis, 11/09/11) HALOPERIDOL (Verified Allergy, Intermediate, Anaphylaxis, 11/09/11) HALOPERIDOL LACTATE (Verified Allergy, Intermediate, Anaphylaxis, 11/09/11) ERYTHROMYCIN BASE (Verified Allergy, Mild, 07/15/13) AMPICILLIN (Verified Allergy, Unknown, 08/05/15) IBUPROFEN (Verified Allergy, Unknown, 08/05/15) Patient History Past Medical History: see triage record Social History: Reports: smoking Social History Narrative Now: No : 6 Para: 3 Reviewed Nursing Documentation: PMH: Agreed, PSxH: Agreed Nursing Documentation-PMH Hx Hypertension: Yes Hx Pacemaker: No Hx Asthma: No Hx COPD: Yes Hx Diabetes: No Hx Cancer: No Hx Dialysis: No Hx Cerebrovascular Accident: No Hx Seizures: Yes Review of Systems All Other Systems: negative except mentioned in HPI Physical Exam Vital Signs Date Time Temp Pulse Resp B/P Pulse Ox O2 Delivery O2 Flow Rate FiO2 08/31/16 06:26 98.2 103 16 177/91 94 Room Air Sp02 EP Interpretation: reviewed, normal General Appearance: well appearing, no apparent distress, GCS 15 Head: normocephalic Eyes: bilateral eye PERRL, bilateral eye normal inspection ENT: moist mucus membranes, other - malar rash Neck: supple Respiratory: wheezing - post tussive Cardiovascular #1: regular rate, rhythm Cardiovascular #2: 2+ radial (R) Gastrointestinal: normal inspection, normal bowel sounds, non tender, no mass, non-distended Musculoskeletal: gait/station normal - bent at back, normal range of motion Neurologic: alert, oriented x3, grossly normal Psychiatric: mood/affect normal Skin: warm/dry, other - chronic plaques R scalp and malar area, improved from last visit Medical Decision Making Diagnostic Impression: Primary Impression: Lupus Qualified Codes: M32.8 - Other forms of systemic lupus erythematosus Additional Impression: Bronchospasm ER Course Patient presents with worsening joint pain associated with exacerbation of her lupus. The to evaluate her with labs including a sedimentation rate. Also EKG and chest x-ray will be obtained because she's also wheezing. Differential of this includes problem spasm, bronchitis, pneumonia. Chest x-ray will be obtained. The patient will be treated with IV hydration, Solu-Medrol, breathing treatments and analgesia. Labs remarkable for elevated ESR, nl WBC and CMP, + opiates. These are c/w exacerbation of lupus. Prednisone indicated. Improved with treatment. No emergency at this time. Patient stable for outpatient observation and treatment. Laboratory Tests Test 08/31/16 06:40 08/31/16 06:45 08/31/16 07:53 Urine Color Pale yellow Urine Appearance Clear Urine pH 6 (4.5-8.0) Urine Specific [place] 1.015 (1.005-1.035) Urine Protein 1+ (NEGATIVE) H Urine Glucose (UA) Negative (NEGATIVE) Urine Ketones Negative (NEGATIVE) Urine Occult Blood Negative (NEGATIVE) Urine Nitrite Negative (NEGATIVE) Urine Bilirubin Negative (NEGATIVE) Urine Urobilinogen Normal MG/DL (0.0-1.0) Urine Leukocyte Esterase 1+ (NEGATIVE) H Urine RBC 0-2 /HPF (0 - 2) Urine WBC 2-4 /HPF (0 - 2) Urine Squamous Epithelial Cells Few /LPF (NONE/OCC) Urine Bacteria Few /HPF (NONE) Urine Opiates Screen Positive (NEGATIVE) H Urine Barbiturates Screen Negative (NEGATIVE) Phencyclidine (PCP) Screen Negative (NEGATIVE) Urine Amphetamines Screen Negative (NEGATIVE) Urine Benzodiazepines Screen Negative (NEGATIVE) Urine Cocaine Screen Negative (NEGATIVE) Urine Marijuana (THC) Screen Negative (NEGATIVE) White Blood Count 6.4 K/UL (4.8-10.8) Red Blood Count 4.27 M/UL (4.20-5.40) Hemoglobin 14.1 G/DL (12.0-16.0) Hematocrit 45.7 % (37.0-47.0) Mean Corpuscular Volume 107 FL (80-99) H Mean Corpuscular Hemoglobin 32.9 PG (27.0-31.0) H Mean Corpuscular Hemoglobin Concent 30.8 G/DL (32.0-36.0) L Red Cell Distribution Width 14.3 % (11.6-14.8) Platelet Count 232 K/UL (150-450) Mean Platelet Volume 6.1 FL (6.5-10.1) L Neutrophils (%) (Auto) 47.0 % (45.0-75.0) Lymphocytes (%) (Auto) 37.6 % (20.0-45.0) Monocytes (%) (Auto) 12.8 % (1.0-10.0) H Eosinophils (%) (Auto) 0.6 % (0.0-3.0) Basophils (%) (Auto) 2.0 % (0.0-2.0) Erythrocyte Sedimentation Rate 70 MM/HR (0-30) H Prothrombin Time 10.7 SEC (9.30-11.50) Prothrombin Time INR 1.0 (0.9-1.1) PTT 27 SEC (23-33) Sodium Level 143 mEQ/L (135-145) Potassium Level 3.6 mEQ/L (3.4-4.9) Chloride Level 106 mEQ/L (98-107) Carbon Dioxide Level 25 mEQ/L (20-30) Anion Gap 12 (5-15) Blood Urea Nitrogen 17 mg/dL (7-23) Creatinine 0.6 mg/dL (0.5-0.9) Estimate Glomerular Filtration Rate > 60 mL/min (>60) Glucose Level 104 mg/dL (74-106) Calcium Level 8.7 mg/dL (8.6-10.2) Total Bilirubin 0.5 mg/dL (0.0-1.2) Aspartate Amino Transferase (AST) 16 U/L (5-40) Alanine Aminotransferase (ALT) 15 U/L (3-33) Alkaline Phosphatase 87 U/L (35-104) Total Creatine Kinase 48 U/L (26-140) Troponin I < 0.30 ng/mL (<=0.30) Pro-B-Type Natriuretic Peptide 122 pg/mL (0-125) Total Protein 6.6 g/dL (6.6-8.7) Albumin 3.9 g/dL (3.5-5.2) Globulin 2.7 g/dL Albumin/Globulin Ratio 1.4 (1.0-2.7) EKG Diagnostic Results Rate: normal Rhythm: NSR ST Segments: no acute changes Rhythm Strip Diag. Results EP Interpretation: yes Rhythm: NSR, no PVC's, no ectopy Last Vital Signs Date Time Temp Pulse Resp B/P Pulse Ox O2 Delivery O2 Flow Rate FiO2 08/31/16 10:15 138/76 08/31/16 07:20 97.6 89 18 96 Room Air Status: improved Disposition: HOME, SELF-CARE Condition: Improved Scripts Albuterol Sulfate* (ALBUTEROL SULFATE MDI*) 8.5 Gm Hfa.aer.ad 2 PUFF INH Q6H, #1 EA 1 Refill Prov: Karl Guan M.D. 08/31/16 Acetaminophen With Codeine (T#3) (TYLENOL #3 TAB*) Y Tab 1 TAB ORAL Q8H Y for For Pain, #14 TAB Prov: Karl Guan M.D. 08/31/16 Prednisone* (PREDNISONE*) 10 Mg Tablet 10 MG ORAL DAILY, #21 TAB 0 Refills 4 po QD X 2, 3 po QD X 2, 2 po QD X 2, 1 po QD X 4 Prov: Karl Guan M.D. 08/31/16 Karl Guan M.D. Aug 31, 2016 06:48
[2016-08-31 07:02] LABS: APPEARANCE,URINE CLEAR; KETONES,URINE NEGATIVE (NEGATIVE); LEUKOCYTE ESTERASE ,URINE 1+ (NEGATIVE); NITRITE,URINE NEGATIVE (NEGATIVE); PH,URINE 6 (4.5-8.0); PROTEIN,URINE 1+ (NEGATIVE); UROBILINOGEN,URINE NORMAL MG/DL (0.0-1.0)
[2016-08-31 07:03] LABS: EOSINOPHILS % (AUTO) 0.6 % (0.0-3.0); LYMPHOCYTES % (AUTO) 37.6 % (20.0-45.0); MEAN CORPUSCULAR HEMOGLOBIN 32.9 PG (27.0-31.0); MEAN CORPUSCULAR HGB CONC 30.8 G/DL (32.0-36.0); MEAN CORPUSCULAR VOLUME 107 FL (80-99); MEAN PLATELET VOLUME 6.1 FL (6.5-10.1); MONOCYTES % (AUTO) 12.8 % (1.0-10.0); PLATELET COUNT 232 K/UL (150-450); RED BLOOD COUNT 4.27 M/UL (4.20-5.40); RED CELL DISTRIBUTION WIDTH 14.3 % (11.6-14.8); WHITE BLOOD COUNT 6.4 K/UL (4.8-10.8)
[2016-08-31 07:12] LABS: BACTERIA,URINE FEW /HPF; RBC,URINE 0-2 /HPF (0 - 2); SQUAMOUS EPITHELIAL CELL,UR FEW /LPF (NONE/OCC)
[2016-08-31 07:14] LABS: PROTHROMBIN TIME 10.7 SEC (9.30-11.50)
[2016-08-31 07:20] VITALS: BP 132/76
[2016-08-31 08:18] LABS: ALANINE AMINOTRANSFERASE 15 U/L (3-33); ALBUMIN/GLOBULIN RATIO 1.4 (1.0-2.7); ANION GAP 12 (5-15); ASPARTATE AMINO TRANSFERASE 16 U/L (5-40); CALCIUM 8.7 mg/dL (8.6-10.2); CARBON DIOXIDE 25 mEQ/L (20-30); CHLORIDE 106 mEQ/L (98-107); CREATININE 0.6 mg/dL (0.5-0.9); GLOMERULAR FILTRATION RATE > 60 mL/min (>60); HEMOLYSIS 3; POTASSIUM 3.6 mEQ/L (3.4-4.9); SODIUM 143 mEQ/L (135-145); TOTAL PROTEIN 6.6 g/dL (6.6-8.7)
[2016-08-31 08:21] LABS: TROPONIN I < 0.30 ng/mL (<=0.30)
[2016-08-31 09:20] LABS: ERYTHROCYTE SEDIMENTATION RATE 70 MM/HR (0-30)
[2016-08-31] MEDS ORDERED: ACETAMINOPHEN-1 EAC1 ORAL (09:41)
[2016-08-31] MEDS ORDERED: PREDNISONE10 MG ORAL (09:41)
[2016-08-31] MEDS ORDERED: Oxycodone/Acetaminophen 5-325 ORAL ONE (09:45)
[2016-08-31] MEDS ORDERED: ALBUTEROL SULF8.5 GM INH (09:49)
[2016-08-31 10:15] VITALS: BP 138/76
--- NOTE | 2016-08-31 11:34 | Diagnostic Imaging Report ---
Indication: Chest pain Comparison: 07/25/16 A single view chest radiograph was obtained. Findings: Bullous emphysema again demonstrated with hyperinflation and lucencies in the upper regions especially in the right upper lobe. Basilar fibrosis and/or atelectasis demonstrated. Heart size is normal. The bones are osteopenic. Impression: COPD/emphysema
== END 2016-08-31 10:18 | disposition home or self-care (01) ==
LOC: EMR 06:40
DX: M32.9 Systemic lupus erythematosus, unspecified (principal); J98.01 Acute bronchospasm; G89.29 Other chronic pain; M54.9 Dorsalgia, unspecified; Z88.6 Allergy status to analgesic agent; Z88.0 Allergy status to penicillin; J43.9 Emphysema, unspecified; F17.200 Nicotine dependence, unspecified, uncomplicated
CPT/HCPCS: 36415; 71010; 80053; 80300; 81003; 82550; 83880; 84484; 85025; 85610; 85651; 85730; 93005; 96361; 96374; 96375; 99284; J1170; J2405; J2930; 96360

== ENCOUNTER 2016-10-17 09:16 | Emergency (ER) | payer MEDICARE, OTHER | END 2016-10-17 09:25 | disposition left against medical advice (07) | LOC: EMR 09:25 | DX: R51 Headache (principal); Z53.21 Procedure and treatment not carried out due to patient leaving prior to being seen by health care provider ==

== ENCOUNTER 2016-10-20 06:08 | Emergency (ER) | payer MEDICARE, OTHER ==
[~2016-10-20] VITALS: Ht 170.2 cm; Wt 59.0 kg
[2016-10-20] MEDS ORDERED: Norco 5mg/325mg tab ORAL ONE (06:30)
--- NOTE | 2016-10-20 06:31 | Emergency Room Report ---
History of Present Illness General Chief Complaint: Pain Source: Patient Present Illness HPI Is a 66-year-old female with a history lupus. She has not take any medication however. She's taking Tylenol #4 at home. She claimed that she's only had a couple pills left. She presents with exacerbation of her lupus. No nausea no vomiting. Pain is 10 out of 10. His any joint. Similar symptom in the past. No other complaint. Denies any trauma. Allergies: Coded Allergies: KETOROLAC TROMETHAMINE (Verified Allergy, Severe, Anaphylaxis, 11/09/11) PENICILLINS (Verified Allergy, Severe, Anaphylaxis, 11/09/11) TETRACYCLINE (Verified Allergy, Severe, Anaphylaxis, 11/09/11) HALOPERIDOL (Verified Allergy, Intermediate, Anaphylaxis, 11/09/11) HALOPERIDOL LACTATE (Verified Allergy, Intermediate, Anaphylaxis, 11/09/11) ERYTHROMYCIN BASE (Verified Allergy, Mild, 07/15/13) AMPICILLIN (Verified Allergy, Unknown, 08/05/15) IBUPROFEN (Verified Allergy, Unknown, 08/05/15) Patient History Past Medical History: see triage record, old chart reviewed Past Surgical History: other Pertinent Family History: none Social History: Denies: smoking Now: No Immunizations: other Reviewed Nursing Documentation: PMH: Agreed, PSxH: Agreed Nursing Documentation-PMH Hx Hypertension: Yes Hx Pacemaker: No Hx Asthma: No Hx COPD: Yes Hx Diabetes: No Hx Cancer: No Hx Dialysis: No Hx Cerebrovascular Accident: No Hx Seizures: Yes Review of Systems Eye: Denies: eye pain, blurred vision ENT: Denies: ear pain, nose congestion, throat swelling Respiratory: Denies: cough, shortness of breath Cardiovascular: Denies: chest pain, palpitations Gastrointestinal: Denies: abdominal pain, diarrhea, nausea, vomiting Musculoskeletal: Reports: back pain, joint pain Skin: Denies: rash Neurological: Denies: headache, numbness Endocrine: Denies: increased thirst, increased urine Hematologic/Lymphatic: Denies: easy bruising All Other Systems: negative except mentioned in HPI Physical Exam Vital Signs Date Time Temp Pulse Resp B/P (MAP) Pulse Ox O2 Delivery O2 Flow Rate FiO2 10/20/16 06:11 98.6 100 18 190/104 95 Room Air vitals with high blood pressure Sp02 EP Interpretation: reviewed, normal General Appearance: well appearing, no apparent distress, alert Head: normocephalic, atraumatic Eyes: bilateral eye PERRL, bilateral eye EOMI ENT: hearing grossly normal, normal pharynx Neck: full range of motion, supple, no meningismus Respiratory: chest non-tender, lungs clear, normal breath sounds Cardiovascular #1: regular rate, rhythm, no murmur Gastrointestinal: normal bowel sounds, non tender, no mass, no organomegaly, no bruit, non-distended Musculoskeletal: other - Patient is contracted at the waist. She uses a walker Neurologic: alert Psychiatric: mood/affect normal Skin: warm/dry Medical Decision Making Diagnostic Impression: Primary Impression: Chronic pain Qualified Codes: G89.4 - Chronic pain syndrome Additional Impressions: Drug-seeking behavior Exacerbation of systemic lupus Back pain Qualified Codes: M54.5 - Low back pain Hypertension Qualified Codes: I10 - Essential (primary) hypertension ER Course Patient presents with exacerbation chronic pain. Is a strong opioid dependence/ drug seeking component. On October 11 she received 60 Tylenol #4. On 09/23 she received 15. On 09/09 she received 120 tablets. She has multiple different prescription for different doctors for narcotics. This is a chronic issue with her see no need for further workup. Last Vital Signs Date Time Temp Pulse Resp B/P (MAP) Pulse Ox O2 Delivery O2 Flow Rate FiO2 10/20/16 06:11 98.6 100 18 190/104 95 Room Air Status: improved Disposition: HOME, SELF-CARE Condition: Stable Patient Instructions: Chronic Pain Additional Instructions: Followup with your Dr. for refill your pain medication. Followup within a week. Return if symptom worsen. AMAURY CONDE M.D. Oct 20, 2016 06:31
[2016-10-20 06:39] VITALS: BP 190/104
[2016-10-20 06:40] VITALS: BP 0/0
== END 2016-10-20 06:40 | disposition home or self-care (01) ==
LOC: EMR 06:25
DX: G89.29 Other chronic pain (principal); M32.9 Systemic lupus erythematosus, unspecified; Z76.5 Malingerer [conscious simulation]; I10 Essential (primary) hypertension; M54.9 Dorsalgia, unspecified
CPT/HCPCS: 99283

== ENCOUNTER 2018-05-19 08:12 | Emergency (ER) | payer MEDICARE, OTHER ==
[~2018-05-19] VITALS: Ht 170.2 cm; Wt 54.4 kg
[2018-05-19 08:24] VITALS: BP_SYST 135; BP_SYST 155; BP_DIAS 70
--- NOTE | 2018-05-19 08:24 | NUR ---
ED Nurse Note: Pt came in due to generalized body pain x 2 days. Hx of lupus. Pt is AAO x4, ambulatory with non labored breathing.
[2018-05-19] MEDS ORDERED: Solu-MEDROL 125mg Inj IM ONE (08:45)
[2018-05-19] MEDS ORDERED: Ipratropium 0.02% Inh Soln 2.5ml UD HHN ONE (08:45)
[2018-05-19] MEDS ORDERED: Albuterol ud Inhalation HHN ONE (08:45)
[2018-05-19] MEDS ORDERED: Hydromorphone 0.5mg/0.5ml inj IM ONE (08:45)
--- NOTE | 2018-05-19 08:45 | Emergency Room Report ---
History of Present Illness General Chief Complaint: Pain Source: Patient, Medical Record Present Illness HPI Patient presents with abdominal pain and vomiting with diarrhea. She states the diarrhea is watery. She says she has diverticulitis and diverticulosis. She's on prednisone for lupus at this time. She's been able to keep down her blood pressure medicine as well as pain medicine. The pain medicine has not been controlling the pain. She states the pain in her abdomen right now is 10/ 10. She passed a small amount of blood a few days ago per rectum but not very much. She denies dysuria. She states she was recently admitted to [facility] [place] for the diverticulitis. She's not taking antibiotics at this time. She took her blood pressure medicines morning. The patient also has COPD and asthma. She has been wheezing. She denies any fevers or chills. Also there is no productive cough at this time. She does have an albuterol inhaler. She states the rash on her scalp is gotten worse. Cures is checked. She felt 90 Tylenol No. 4 on May 08. Also she feels 30 Soma tablets that same day. Prior to that on April 27 she feels 2020 mg OxyContin tablets. Allergies: Coded Allergies: KETOROLAC TROMETHAMINE (Verified Allergy, Severe, Anaphylaxis, 11/09/11) PENICILLINS (Verified Allergy, Severe, Anaphylaxis, 11/09/11) TETRACYCLINE (Verified Allergy, Severe, Anaphylaxis, 11/09/11) HALOPERIDOL (Verified Allergy, Intermediate, Anaphylaxis, 11/09/11) HALOPERIDOL LACTATE (Verified Allergy, Intermediate, Anaphylaxis, 11/09/11) ERYTHROMYCIN BASE (Verified Allergy, Mild, 07/15/13) AMPICILLIN (Verified Allergy, Unknown, 08/05/15) IBUPROFEN (Verified Allergy, Unknown, 08/05/15) Patient History Past Medical History: see triage record Social History: Reports: smoking, drug use Social History Narrative Now: No Reviewed Nursing Documentation: PMH: Agreed; PSxH: Agreed Nursing Documentation-PMH Hx Hypertension: Yes Hx Pacemaker: No Hx Asthma: No Hx COPD: Yes Hx Diabetes: No Hx Cancer: No Hx Dialysis: No Hx Cerebrovascular Accident: No Hx Seizures: Yes Review of Systems All Other Systems: negative except mentioned in HPI Physical Exam Vital Signs Date Time Temp Pulse Resp B/P (MAP) Pulse Ox O2 Delivery O2 Flow Rate FiO2 3/23/19 08:14 98.2 97 17 171/119 95 Room Air Sp02 EP Interpretation: reviewed, normal General Appearance: GCS 15, mild distress, thin, Chronically Ill Head: normocephalic Eyes: bilateral eye normal inspection, bilateral eye PERRL, bilateral eye EOMI ENT: moist mucus membranes Neck: supple Respiratory: wheezing, expiration Cardiovascular #1: regular rate, rhythm Cardiovascular #2: 2+ radial (R) Gastrointestinal: normal inspection, normal bowel sounds, no mass, non- distended, no guarding, no rebound, tenderness - R flank area Genitourinary: no CVA tenderness Musculoskeletal: back normal, gait/station normal - walks with walker bent over , normal range of motion Neurologic: alert, oriented x3, grossly normal Psychiatric: depressed affect Skin: warm/dry, other - malar rash and rash in scalp Medical Decision Making Diagnostic Impression: Primary Impression: Acute abdominal pain Additional Impressions: Lupus Bronchospasm Depression Qualified Codes: F32.89 - Other specified depressive episodes ER Course Patient with lupus with abdominal pain vomiting and diarrhea. Differential includes gastroenteritis, diverticulitis, gastritis, pancreatitis amongst others. She long history of drug-seeking behavior. She has chronic pain also that she states is poorly controlled at this time. In addition she has bronchospasm. She'll be treated with IM analgesia and slight Medrol and breathing treatments. In addition EKG, chest x-ray, abdominal film and labs will be obtained. Blood pressure will need to be rechecked. EKG with LVH. CXR COPD. Abd. Clips, no SBO - injection calcifications Labs with low WBC, H/H normal. CMP normal (AST slightly high). IV analgesia repeated. Improved with treatment. Discussed treatment plan with patient and . She was also talking about hopelessness. Not suicidal. Given referral to Nena Saldaña. Patient stable for outpatient observation and treatment. Last Vital Signs Date Time Temp Pulse Resp B/P (MAP) Pulse Ox O2 Delivery O2 Flow Rate FiO2 05/19/18 10:30 98.3 79 15 142/88 100 Room Air 05/19/18 09:23 21 EKG Diagnostic Results Rate: normal Rhythm: NSR ST Segments: no acute changes - LVH and PVCs Rhythm Strip Diag. Results EP Interpretation: yes Rhythm: NSR, other - rate 88, PVCs Chest X-Ray Diagnostic Results Chest X-Ray Diagnostic Results : Chest X-Ray Ordered: Yes # of Views/Limited/Complete: 1 View Indication: Shortness of Breath EP Interpretation: Yes Interpretation: no consolidation, no pneumothorax, other - small L effusion Impression: Other Electronically Signed by: Electronically signed by Karl Guan MD Other X-Ray Diagnostic Results Other X-Ray Diagnostic Results : X-Ray ordered: abd # of Views/Limited Vs Complete: 1 View Indication: Pain EP Interpretation: Yes Interpretation: nonspecific bowel gas, no sbo, other - clips RUQ Impression: Other Electronically Signed by: Electronically signed by Karl Guan MD Last Vital Signs Date Time Temp Pulse Resp B/P (MAP) Pulse Ox O2 Delivery O2 Flow Rate FiO2 05/19/18 12:40 98.2 82 18 134/82 100 Room Air 21 Status: improved Disposition: HOME, SELF-CARE Condition: Improved Scripts Acetaminophen With Codeine (T#4) (TYLENOL #4 TAB*) Y Tab 1 TAB ORAL Q6H PRN for For Pain, #8 TAB 0 Refills Prov: Karl Guan MD 05/19/18 Prednisone* (PREDNISONE*) 10 Mg Tablet 10 MG ORAL DAILY, #21 TAB 0 Refills 4 po QD X 2, 3 po QD X 2, 2 po QD X 2, 1 po QD X 4 Prov: Karl Guan MD 05/19/18 Albuterol Sulfate* (ALBUTEROL SULFATE MDI*) 8.5 Gm Hfa.aer.ad 2 PUFF INH Q6H, #1 EA 0 Refills Prov: Karl Guan MD 05/19/18 Karl Guan MD May 19, 2018 08:45
[2018-05-19 08:58] LABS: APPEARANCE,URINE CLEAR; BILIRUBIN, URINE NEGATIVE (NEGATIVE); COLOR,URINE PALE YELLOW; GLUCOSE, URINE (UA) NEGATIVE (NEGATIVE); KETONES,URINE NEGATIVE (NEGATIVE); LEUKOCYTE ESTERASE ,URINE 1+ (NEGATIVE); NITRITE,URINE NEGATIVE (NEGATIVE); PH,URINE 7 (4.5-8.0); PROTEIN,URINE NEGATIVE (NEGATIVE); UROBILINOGEN,URINE NORMAL MG/DL (0.0-1.0)
[2018-05-19 08:59] LABS: BASOPHILS % (AUTO) 1.6 % (0.0-2.0); EOSINOPHILS % (AUTO) 0.9 % (0.0-3.0); HEMATOCRIT 41.3 % (37.0-47.0); HEMOGLOBIN 12.5 G/DL (12.0-16.0); LYMPHOCYTES % (AUTO) 36.9 % (20.0-45.0); MEAN CORPUSCULAR VOLUME 89 FL (80-99); MONOCYTES % (AUTO) 7.4 % (1.0-10.0); NEUTROPHILS % (AUTO) 53.2 % (45.0-75.0); PLATELET COUNT 194 K/UL (150-450); RED BLOOD COUNT 4.63 M/UL (4.20-5.40); RED CELL DISTRIBUTION WIDTH 17.8 % (11.6-14.8); WHITE BLOOD COUNT 4.3 K/UL (4.8-10.8)
[2018-05-19 09:08] LABS: ANION GAP 15 mmol/L (5-15); BLOOD UREA NITROGEN 11 mg/dL (7-18); CALCIUM 9.3 MG/DL (8.5-10.1); CARBON DIOXIDE 24 MMOL/L (21-32); CHLORIDE 103 MMOL/L (98-107); CREATININE 0.8 MG/DL (0.55-1.30); POTASSIUM 3.5 MMOL/L (3.5-5.1); SODIUM 142 MMOL/L (136-145)
[2018-05-19 09:12] LABS: ALANINE AMINOTRANSFERASE 28 U/L (12-78); ALBUMIN 3.8 G/DL (3.4-5.0); ALBUMIN/GLOBULIN RATIO 0.9 (1.0-2.7); ALKALINE PHOSPHATASE 98 U/L (46-116); ASPARTATE AMINO TRANSFERASE 42 U/L (15-37); BILIRUBIN,TOTAL 0.6 MG/DL (0.2-1.0)
[2018-05-19 09:13] LABS: INR 1.1 (0.9-1.1)
--- NOTE | 2018-05-19 10:28 | NUR ---
ED Nurse Note: Pt states she is still having a lot of pain. Dr Guan notified and waiting for new orders.
[2018-05-19 10:30] VITALS: BP 142/88
[2018-05-19] MEDS ORDERED: Morphine Sulfate 4mg/ml Inj (IV USE ONLY) IVP ONE (10:30)
--- NOTE | 2018-05-19 11:08 | Diagnostic Imaging Report ---
EXAM: XR Chest, 1 View CLINICAL HISTORY: ABD PAIN TECHNIQUE: Frontal view of the chest. COMPARISON: Chest x-ray 08/31/16 FINDINGS: Lungs: Hyperexpanded lungs of COPD. Mild bibasilar atelectasis/interstitial prominence may be fibrotic. Pleural space: Unremarkable. No pneumothorax. Heart: Unremarkable. No cardiomegaly. Mediastinum: Unremarkable. Bones/joints: Unremarkable. IMPRESSION: Hyperexpanded lungs of COPD. Mild bibasilar atelectasis/interstitial prominence may be fibrotic.
--- NOTE | 2018-05-19 11:23 | Diagnostic Imaging Report ---
EXAM: XR Abdomen, 1 Views CLINICAL HISTORY: ABD PAIN TECHNIQUE: Frontal view of the abdomen/pelvis. COMPARISON: No relevant prior studies available. FINDINGS: Gastrointestinal tract: Unremarkable. No dilation. Bones/joints: Dystrophic calcifications bilateral hips soft tissue. Degenerative changes lower lumbar spine. Soft tissues: Surgical clips right upper quadrant the abdomen. IMPRESSION: No acute findings.
--- NOTE | 2018-05-19 11:40 | NUR ---
ED Nurse Note: Pt resting on bed with no distress at this time. VSS. Family member at the bed side.
[2018-05-19] MEDS ORDERED: PREDNISONE10 MG ORAL (12:36)
[2018-05-19] MEDS ORDERED: ALBUTEROL SULF8.5 GM INH (12:36)
[2018-05-19] MEDS ORDERED: ACETAMINOPHEN-1 EAC2 ORAL (12:36)
[2018-05-19 12:40] VITALS: BP 134/82
== END 2018-05-19 13:29 | disposition home or self-care (01) ==
LOC: EMR 08:55
DX: R10.9 Unspecified abdominal pain (principal); M32.9 Systemic lupus erythematosus, unspecified; J98.01 Acute bronchospasm; F32.89 Other specified depressive episodes; J44.9 Chronic obstructive pulmonary disease, unspecified; I10 Essential (primary) hypertension; K57.90 Diverticulosis of intestine, part unspecified, without perforation or abscess without bleeding; Z88.6 Allergy status to analgesic agent; Z88.0 Allergy status to penicillin; Z88.1 Allergy status to other antibiotic agents; Z88.8 Allergy status to other drugs, medicaments and biological substances; F17.200 Nicotine dependence, unspecified, uncomplicated; F19.10 Other psychoactive substance abuse, uncomplicated; R06.02 Shortness of breath; Z79.51 Long term (current) use of inhaled steroids
CPT/HCPCS: 36415; 71045; 74018; 80053; 81003; 83690; 84484; 85025; 85610; 85730; 94640; 94664; 96361; 96372; 96374; 99284; J1170; J2270; J2930

== ENCOUNTER 2018-05-20 07:07 | Emergency (ER) | payer MEDICARE, OTHER ==
[~2018-05-20] VITALS: Ht 170.2 cm; Wt 54.4 kg
[2018-05-20] MEDS ORDERED: oxyCODONE HCL/Acetaminophen 5/325mg ORAL ONE ×2 (07:30→11:15)
--- NOTE | 2018-05-20 07:30 | NUR ---
ED Nurse Note: Pt brought in by ambulance from home due to lupus . Pt has generalized body pain and diarrhea. Pt was seen here yesterday for the same symptom and states she came in gaian d/t unbearable pain. Pt is AAO x4, follows commands. VSS.
--- NOTE | 2018-05-20 07:34 | Emergency Room Report ---
History of Present Illness General Chief Complaint: Abdominal Pain Source: Patient, Family Member, Medical Record, EMS Present Illness HPI Patient seen yesterday for abdominal pain and wheezing. She was treated with Dilaudid and steroids and breathing treatments. She was improved. She was given prescriptions however was unable to fill them. The pain is now suprapubic and left lower quadrant. It's constant. She's been vomiting and has diarrhea. The diarrhea is been brown and green. She denies any blood. She 's had no fevers or chills. She was transported by [facility]. The pain is rated 9/10 and constant. Her is also ill with vomiting. The breathing is better. She's complaining about some numbness in her left hand. She says that she's had TIAs in the last year. She denies any headache. This is the note from yesterday: Patient presents with abdominal pain and vomiting with diarrhea. She states the diarrhea is watery. She says she has diverticulitis and diverticulosis. She's on prednisone for lupus at this time. She's been able to keep down her blood pressure medicine as well as pain medicine. The pain medicine has not been controlling the pain. She states the pain in her abdomen right now is 10/ 10. She passed a small amount of blood a few days ago per rectum but not very much. She denies dysuria. She states she was recently admitted to [facility] [place] for the diverticulitis. She's not taking antibiotics at this time. She took her blood pressure medicines morning. The patient also has COPD and asthma. She has been wheezing. She denies any fevers or chills. Also there is no productive cough at this time. She does have an albuterol inhaler. She states the rash on her scalp is gotten worse. Cures is checked. She felt 90 Tylenol No. 4 on May 08. Also she feels 30 Soma tablets that same day. Prior to that on April 27 she feels 2020 mg OxyContin tablets. Allergies: Coded Allergies: KETOROLAC TROMETHAMINE (Verified Allergy, Severe, Anaphylaxis, 11/09/11) PENICILLINS (Verified Allergy, Severe, Anaphylaxis, 11/09/11) TETRACYCLINE (Verified Allergy, Severe, Anaphylaxis, 11/09/11) HALOPERIDOL (Verified Allergy, Intermediate, Anaphylaxis, 11/09/11) HALOPERIDOL LACTATE (Verified Allergy, Intermediate, Anaphylaxis, 11/09/11) ERYTHROMYCIN BASE (Verified Allergy, Mild, 07/15/13) AMPICILLIN (Verified Allergy, Unknown, 08/05/15) IBUPROFEN (Verified Allergy, Unknown, 08/05/15) Patient History Past Medical History: see triage record Past Surgical History: other - Abdominal mass removal Social History: Denies: smoking Social History Narrative Reviewed Nursing Documentation: PMH: Agreed; PSxH: Agreed Nursing Documentation-PMH Hx Hypertension: Yes Hx Pacemaker: No Hx Asthma: No Hx COPD: Yes Hx Diabetes: No Hx Cancer: No Hx Dialysis: No Hx Cerebrovascular Accident: No Hx Seizures: Yes Review of Systems All Other Systems: negative except mentioned in HPI Physical Exam Vital Signs Date Time Temp Pulse Resp B/P (MAP) Pulse Ox O2 Delivery O2 Flow Rate FiO2 05/20/18 07:08 99.0 77 19 168/78 98 Room Air Sp02 EP Interpretation: reviewed, normal General Appearance: no apparent distress, GCS 15, Chronically Ill Head: normocephalic, atraumatic, other - Lupus rashes scalp Eyes: bilateral eye normal inspection ENT: normal pharynx, moist mucus membranes, other - Malar rash Neck: supple Respiratory: lungs clear, normal breath sounds Cardiovascular #1: regular rate, rhythm Cardiovascular #2: 2+ radial (R) Gastrointestinal: normal inspection, normal bowel sounds, no mass, non- distended, no guarding, no rebound, tenderness - Suprapubic and left lower quadrant Genitourinary: no CVA tenderness Musculoskeletal: gait/station normal, normal range of motion, other - Chronic back tenderness Neurologic: alert, oriented x3, other - Walks with a walker, grossly normal Psychiatric: depressed affect, anxious Skin: warm/dry, rash Medical Decision Making Diagnostic Impression: Primary Impression: Gastroenteritis Additional Impressions: Lupus Drug-seeking behavior ER Course Patient returns with abdominal pain vomiting and diarrhea. Differential includes gastroenteritis, colitis, diverticulitis, pain medicine seeking behavior amongst others. Evaluation will be with labs, orthostatic vital signs , EKG. The patient will be treated with Zofran and Percocet. Patient is placed on a poiser balance. X-rays are reviewed from yesterday. Based on exam no further imaging is indicated at this time. EKG without injury. Patient is not orthostatic. Labs with normal white count. Normal CMP and lipase. Patient is requesting IV analgesics. He tolerated oral Percocet without difficulty. Percocet is repeated. The patient is sleeping and resting without any apparent discomfort. Discussed most likely diagnosis of gastroenteritis with patient. Advised that she needed to fill her prescriptions. Patient improved and stable for outpatient observation and treatment. Laboratory Tests Test 05/20/18 07:52 White Blood Count 5.6 K/UL (4.8-10.8) Red Blood Count 4.08 M/UL (4.20-5.40) L Hemoglobin 11.2 G/DL (12.0-16.0) L Hematocrit 36.5 % (37.0-47.0) L Mean Corpuscular Volume 89 FL (80-99) Mean Corpuscular Hemoglobin 27.4 PG (27.0-31.0) Mean Corpuscular Hemoglobin Concent 30.7 G/DL (32.0-36.0) L Red Cell Distribution Width 17.9 % (11.6-14.8) H Platelet Count 259 K/UL (150-450) Mean Platelet Volume 5.5 FL (6.5-10.1) L Neutrophils (%) (Auto) 59.6 % (45.0-75.0) Lymphocytes (%) (Auto) 31.2 % (20.0-45.0) Monocytes (%) (Auto) 7.8 % (1.0-10.0) Eosinophils (%) (Auto) 0.3 % (0.0-3.0) Basophils (%) (Auto) 1.1 % (0.0-2.0) Urine Color Pale yellow Urine Appearance Clear Urine pH 7 (4.5-8.0) Urine Specific [place] 1.005 (1.005-1.035) Urine Protein Negative (NEGATIVE) Urine Glucose (UA) Negative (NEGATIVE) Urine Ketones Negative (NEGATIVE) Urine Blood Negative (NEGATIVE) Urine Nitrite Negative (NEGATIVE) Urine Bilirubin Negative (NEGATIVE) Urine Urobilinogen Normal MG/DL (0.0-1.0) Urine Leukocyte Esterase 1+ (NEGATIVE) H Urine RBC 0 /HPF (0 - 2) Urine WBC 2-4 /HPF (0 - 2) Urine Squamous Epithelial Cells Few /LPF (NONE/OCC) Urine Bacteria Occasional /HPF (NONE) Sodium Level 142 MMOL/L (136-145) Potassium Level 3.1 MMOL/L (3.5-5.1) L Chloride Level 105 MMOL/L (98-107) Carbon Dioxide Level 25 MMOL/L (21-32) Anion Gap 12 mmol/L (5-15) Blood Urea Nitrogen 9 mg/dL (7-18) Creatinine 0.7 MG/DL (0.55-1.30) Estimate Glomerular Filtration Rate > 60 mL/min (>60) Glucose Level 95 MG/DL (74-106) Calcium Level 9.4 MG/DL (8.5-10.1) Total Bilirubin 0.7 MG/DL (0.2-1.0) Aspartate Amino Transferase (AST) 28 U/L (15-37) Alanine Aminotransferase (ALT) 26 U/L (12-78) Alkaline Phosphatase 82 U/L (46-116) Total Protein 7.4 G/DL (6.4-8.2) Albumin 3.5 G/DL (3.4-5.0) Globulin 3.9 g/dL Albumin/Globulin Ratio 0.9 (1.0-2.7) L Lipase 187 U/L (73-393) EKG Diagnostic Results Rate: normal Rhythm: NSR ST Segments: no acute changes - LVH Rhythm Strip Diag. Results EP Interpretation: yes Rhythm: NSR, no PVC's, no ectopy Last Vital Signs Date Time Temp Pulse Resp B/P (MAP) Pulse Ox O2 Delivery O2 Flow Rate FiO2 05/20/18 11:08 98.3 72 15 145/57 98 Room Air Status: improved Disposition: HOME, SELF-CARE Condition: Improved Referrals: NOT CHOSEN IPA/,REFERRING (PCP) Karl Guan MD May 20, 2018 07:34
--- NOTE | 2018-05-20 07:51 | NUR ---
HAND-OFF: Report given to Josue GUTIERREZ.
[2018-05-20 08:02] VITALS: BP_SYST 142; BP_SYST 147; BP_SYST 151; BP_DIAS 73; BP_DIAS 81; BP_DIAS 84
[2018-05-20 08:09] VITALS: BP 151/81
[2018-05-20 08:17] LABS: APPEARANCE,URINE CLEAR; BASOPHILS % (AUTO) 1.1 % (0.0-2.0); BILIRUBIN, URINE NEGATIVE (NEGATIVE); COLOR,URINE PALE YELLOW; EOSINOPHILS % (AUTO) 0.3 % (0.0-3.0); GLUCOSE, URINE (UA) NEGATIVE (NEGATIVE); HEMATOCRIT 36.5 % (37.0-47.0); HEMOGLOBIN 11.2 G/DL (12.0-16.0); KETONES,URINE NEGATIVE (NEGATIVE); LEUKOCYTE ESTERASE ,URINE 1+ (NEGATIVE); LYMPHOCYTES % (AUTO) 31.2 % (20.0-45.0); MEAN CORPUSCULAR VOLUME 89 FL (80-99); MONOCYTES % (AUTO) 7.8 % (1.0-10.0); NEUTROPHILS % (AUTO) 59.6 % (45.0-75.0); NITRITE,URINE NEGATIVE (NEGATIVE); PH,URINE 7 (4.5-8.0); PLATELET COUNT 259 K/UL (150-450); PROTEIN,URINE NEGATIVE (NEGATIVE); RED BLOOD COUNT 4.08 M/UL (4.20-5.40); RED CELL DISTRIBUTION WIDTH 17.9 % (11.6-14.8); UROBILINOGEN,URINE NORMAL MG/DL (0.0-1.0); WHITE BLOOD COUNT 5.6 K/UL (4.8-10.8)
[2018-05-20 08:29] LABS: ANION GAP 12 mmol/L (5-15); BLOOD UREA NITROGEN 9 mg/dL (7-18); CALCIUM 9.4 MG/DL (8.5-10.1); CARBON DIOXIDE 25 MMOL/L (21-32); CHLORIDE 105 MMOL/L (98-107); CREATININE 0.7 MG/DL (0.55-1.30); POTASSIUM 3.1 MMOL/L (3.5-5.1); SODIUM 142 MMOL/L (136-145)
[2018-05-20 08:33] LABS: ALANINE AMINOTRANSFERASE 26 U/L (12-78); ALBUMIN 3.5 G/DL (3.4-5.0); ALBUMIN/GLOBULIN RATIO 0.9 (1.0-2.7); ALKALINE PHOSPHATASE 82 U/L (46-116); ASPARTATE AMINO TRANSFERASE 28 U/L (15-37); BILIRUBIN,TOTAL 0.7 MG/DL (0.2-1.0)
[2018-05-20 10:14] VITALS: BP 145/57
[2018-05-20 11:08] VITALS: BP 145/57
--- NOTE | 2018-05-20 11:10 | NUR ---
ER DISCHARGE NOTE: Patient is cleared to be discharged per ERMD, pt is aox4, on room air, with stable vital signs. pt was given dc and prescription instructions, pt was able to verbalize understanding, pt id band and iv site removed without complications. pt is able to ambulate with steady gait. pt took all belongings.
--- NOTE | 2018-05-22 19:14 | Cardiology Report ---
APPROVED REPORT EKG Measurement Heart [id number] Normal sinus rhythm Left ventricular hypertrophy with repolarization abnormality Abnormal ECG
== END 2018-05-20 11:16 | disposition home or self-care (01) ==
LOC: EDUNIT# 07:07 → EDBD 07:07 → EMR 07:25
DX: K52.9 Noninfective gastroenteritis and colitis, unspecified (principal); M32.9 Systemic lupus erythematosus, unspecified; Z76.5 Malingerer [conscious simulation]; I10 Essential (primary) hypertension; J44.9 Chronic obstructive pulmonary disease, unspecified
CPT/HCPCS: 36415; 80053; 81003; 83690; 85025; 93005; 99283

== ENCOUNTER 2018-08-20 06:51 | Emergency (ER) | payer MEDICARE, OTHER ==
[~2018-08-20] VITALS: Ht 177.8 cm; Wt 56.7 kg
[2018-08-20] MEDS ORDERED: Albuterol ud Inhalation HHN ONE (07:00)
[2018-08-20] MEDS ORDERED: Ipratropium 0.02% Inh Soln 2.5ml UD HHN ONE (07:00)
--- NOTE | 2018-08-20 07:12 | NUR ---
ED Nurse Note: Walk-in patient with complaints SOB, chest pain and pain all over from lupus. Patient was ambulatory with walker in tripod position, presented with dyspnea on exertion from walking. Patient is A&Ox4.
[2018-08-20 07:13] VITALS: BP 174/101
[2018-08-20] MEDS ORDERED: Morphine Sulfate 4mg/ml Inj (IV USE ONLY) IVP ONE ×2 (07:15→09:15)
[2018-08-20 07:32] LABS: BASOPHILS % (AUTO) 1.6 % (0.0-2.0); EOSINOPHILS % (AUTO) 0.9 % (0.0-3.0); HEMATOCRIT 42.3 % (37.0-47.0); HEMOGLOBIN 13.2 G/DL (12.0-16.0); LYMPHOCYTES % (AUTO) 41.9 % (20.0-45.0); MEAN CORPUSCULAR VOLUME 87 FL (80-99); MONOCYTES % (AUTO) 7.3 % (1.0-10.0); NEUTROPHILS % (AUTO) 48.4 % (45.0-75.0); PLATELET COUNT 278 K/UL (150-450); RED BLOOD COUNT 4.86 M/UL (4.20-5.40); RED CELL DISTRIBUTION WIDTH 17.9 % (11.6-14.8); WHITE BLOOD COUNT 5.1 K/UL (4.8-10.8)
[2018-08-20 07:38] VITALS: BP 163/90
--- NOTE | 2018-08-20 07:39 | NUR ---
ED Nurse Note:blood sent to labs , pt. received breathing treatment and pain meds, resting no signs of distress noted
--- NOTE | 2018-08-20 08:02 | Emergency Room Report ---
History of Present Illness General Chief Complaint: Dyspnea/Respdistress Source: Patient Present Illness HPI Patient is she presents for complaints of pain to her right shoulder reports that she has history of Rotator cuff and tendon injuries she is awaiting surgery However while coming to the emergency room patient appeared short of breath has history of COPD Denies any acute fall or trauma denies any chest pain patient herself feels mildly short of breath but Reports that is fairly consistent with her underlying disease denies any cough denies any pleurisy denies any recent travel Pain to the right shoulder is 8 out of 10 pain is worse with movement Allergies: Coded Allergies: KETOROLAC TROMETHAMINE (Verified Allergy, Severe, Anaphylaxis, 11/09/11) PENICILLINS (Verified Allergy, Severe, Anaphylaxis, 11/09/11) TETRACYCLINE (Verified Allergy, Severe, Anaphylaxis, 11/09/11) HALOPERIDOL (Verified Allergy, Intermediate, Anaphylaxis, 11/09/11) HALOPERIDOL LACTATE (Verified Allergy, Intermediate, Anaphylaxis, 11/09/11) ERYTHROMYCIN BASE (Verified Allergy, Mild, 07/15/13) AMPICILLIN (Verified Allergy, Unknown, 08/05/15) ASPIRIN (Verified Allergy, Unknown, 08/20/18) IBUPROFEN (Verified Allergy, Unknown, 08/05/15) NAPROXEN (Verified Allergy, Unknown, 08/20/18) Patient History Past Medical History: see triage record Pertinent Family History: none Now: No Reviewed Nursing Documentation: PMH: Agreed; PSxH: Agreed Nursing Documentation-PMH Past Medical History: No History, Except For Hx Hypertension: Yes Hx Pacemaker: No Hx Asthma: No Hx COPD: Yes - EMPHYSEMA Hx Diabetes: No Hx Cancer: No Hx Dialysis: No Hx Cerebrovascular Accident: No Hx Seizures: Yes Review of Systems All Other Systems: negative except mentioned in HPI Physical Exam Vital Signs Date Time Temp Pulse Resp B/P (MAP) Pulse Ox O2 Delivery O2 Flow Rate FiO2 08/20/18 06:56 90 22 174/101 (125) 100 Nasal Cannula 2.0 08/20/18 07:01 28 08/20/18 07:38 98.9 Sp02 EP Interpretation: reviewed, normal General Appearance: mild distress - Appears mildly tachypneic Head: normocephalic, atraumatic Eyes: bilateral eye PERRL, bilateral eye EOMI ENT: hearing grossly normal, normal pharynx Neck: supple Respiratory: no respiratory distress, no retraction, no accessory muscle use, wheezing - Fine wheezing laterally Cardiovascular #1: regular rate, rhythm Gastrointestinal: non tender Musculoskeletal: other - Holding right shoulder close to her arm, reports increased pain with any movement Neurologic: alert, oriented x3, responsive Psychiatric: normal inspection Skin: no rash, warm/dry Lymphatic: no adenopathy Medical Decision Making Diagnostic Impression: Primary Impression: Lupus Additional Impressions: Arthralgia COPD (chronic obstructive pulmonary disease) ER Course Patient initially presents with complaints of right shoulder pain However appears mildly short of breath and does appear to have a mild COPD exacerbation Extensive work-up was initiated with breathing treatments Patient receiving pain medicine And breathing treatments Feels significantly improved on repeat evaluation reports that she would like to go home She reports that she has close follow-up with her primary physician and reports that she feels that her lupus might have Also flared causing some of the increased pain however feels better now would like to go home again Labs Test 08/20/18 07:20 White Blood Count 5.1 K/UL (4.8-10.8) Red Blood Count 4.86 M/UL (4.20-5.40) Hemoglobin 13.2 G/DL (12.0-16.0) Hematocrit 42.3 % (37.0-47.0) Mean Corpuscular Volume 87 FL (80-99) Mean Corpuscular Hemoglobin 27.2 PG (27.0-31.0) Mean Corpuscular Hemoglobin Concent 31.3 G/DL (32.0-36.0) Red Cell Distribution Width 17.9 % (11.6-14.8) Platelet Count 278 K/UL (150-450) Mean Platelet Volume 5.4 FL (6.5-10.1) Neutrophils (%) (Auto) 48.4 % (45.0-75.0) Lymphocytes (%) (Auto) 41.9 % (20.0-45.0) Monocytes (%) (Auto) 7.3 % (1.0-10.0) Eosinophils (%) (Auto) 0.9 % (0.0-3.0) Basophils (%) (Auto) 1.6 % (0.0-2.0) Sodium Level 148 MMOL/L (136-145) Potassium Level 3.1 MMOL/L (3.5-5.1) Chloride Level 117 MMOL/L (98-107) Carbon Dioxide Level 18 MMOL/L (21-32) Anion Gap 13 mmol/L (5-15) Blood Urea Nitrogen 9 mg/dL (7-18) Creatinine 0.4 MG/DL (0.55-1.30) Estimat Glomerular Filtration Rate > 60 mL/min (>60) Glucose Level 68 MG/DL (74-106) Calcium Level 6.1 MG/DL (8.5-10.1) Total Bilirubin 0.4 MG/DL (0.2-1.0) Aspartate Amino Transf (AST/SGOT) 32 U/L (15-37) Alanine Aminotransferase (ALT/SGPT) 18 U/L (12-78) Alkaline Phosphatase 58 U/L (46-116) Total Creatine Kinase 114 U/L (26-308) Creatine Kinase MB 0.9 NG/ML (0.0-3.6) Creatine Kinase MB Relative Index 0.7 Troponin I 0.000 ng/mL (0.000-0.056) Pro-B-Type Natriuretic Peptide 208 pg/mL (0-125) Total Protein 5.1 G/DL (6.4-8.2) Albumin 2.5 G/DL (3.4-5.0) Globulin 2.6 g/dL Albumin/Globulin Ratio 1.0 (1.0-2.7) EKG Diagnostic Results Rate: normal Rhythm: NSR ST Segments: no acute changes Rhythm Strip Diag. Results EP Interpretation: yes Rate: 66 Rhythm: NSR, no PVC's, no ectopy Chest X-Ray Diagnostic Results Chest X-Ray Diagnostic Results : Chest X-Ray Ordered: Yes # of Views/Limited/Complete: 1 View Indication: Shortness of Breath EP Interpretation: Yes Interpretation: no consolidation, no effusion, no pneumothorax Impression: No acute disease Electronically Signed by: Elo Ascencio DO Last Vital Signs Date Time Temp Pulse Resp B/P (MAP) Pulse Ox O2 Delivery O2 Flow Rate FiO2 08/20/18 07:38 98.9 83 20 163/90 99 Nasal Cannula 2.0 28 Status: improved Disposition: HOME, SELF-CARE Condition: Improved Scripts Albuterol Sulfate* (ALBUTEROL SULFATE MDI*) 8.5 Gm Hfa.aer.ad 2 PUFF INH Q6H, #1 EA 0 Refills Prov: Elo Ascencio DO 08/20/18 Methylprednisolone (Methylprednisolone*) 4MG Dspk 4 MG ORAL DIRECTED for 6 Days, #21 EA 0 Refills Day 1: Two tablets before breakfast, one after lunch, one after dinner, and two at bedtime. If started late in the day, take all six tablets at once or divide into two or three doses, unless otherwise directed by prescriber. Day 2: One tablet before breakfast, one after lunch, one after dinner, and two at bedtime Day 3: One tablet before breakfast, one after lunch, one after dinner, and one at bedtime Day 4: One tablet before breakfast, one after lunch, and one at bedtime Day 5: One tablet before breakfast and one at bedtime Day 6: One tablet before breakfast Prov: Elo Ascencio DO 08/20/18 Referrals: NON PHYSICIAN (PCP) Additional Instructions: Patient is provided with the discharge instructions notified to follow up with primary doctor in the next 2-3 days otherwise return to the er with any worsening symptoms. Please note that this report is being documented using [employer] website technology. This can lead to erroneous entry secondary to incorrect interpretation by the dictating instrument. Elo Ascencio DO Aug 20, 2018 08:01
[2018-08-20 08:03] LABS: ALANINE AMINOTRANSFERASE 18 U/L (12-78); ALBUMIN 2.5 G/DL (3.4-5.0); ALKALINE PHOSPHATASE 58 U/L (46-116); ANION GAP 13 mmol/L (5-15); ASPARTATE AMINO TRANSFERASE 32 U/L (15-37); BILIRUBIN,TOTAL 0.4 MG/DL (0.2-1.0); BLOOD UREA NITROGEN 9 mg/dL (7-18); CALCIUM 6.1 MG/DL (8.5-10.1); CARBON DIOXIDE 18 MMOL/L (21-32); CHLORIDE 117 MMOL/L (98-107); CKMB 0.9 NG/ML (0.0-3.6); CREATINE KINASE 114 U/L (26-308); CREATININE 0.4 MG/DL (0.55-1.30); POTASSIUM 3.1 MMOL/L (3.5-5.1); SODIUM 148 MMOL/L (136-145)
--- NOTE | 2018-08-20 08:42 | NUR ---
ED Nurse Note:blood sugar 68- given food and juice to pt.
[2018-08-20] MEDS ORDERED: ALBUTEROL SULF8.5 GM INH (09:28)
[2018-08-20] MEDS ORDERED: MEDROL DOSEPAK4 MG ORAL (09:28)
[2018-08-20 09:45] VITALS: BP 156/87
[2018-08-20 09:48] VITALS: BP 156/87
--- NOTE | 2018-08-20 12:19 | Diagnostic Imaging Report ---
Indication: Chest pain Comparison: 05/19/2018 A single view chest radiograph was obtained. Findings: Hyperlucency noted within the upper lobes especially in the right upper lobe. The heart is mildly enlarged but stable. Aorta is ectatic. Interstitial opacities are prominent at the lung bases. Bones are osteopenic. IMPRESSION: COPD. No change.
== END 2018-08-20 09:52 | disposition home or self-care (01) ==
LOC: EMR 07:15
DX: M25.511 Pain in right shoulder (principal); R06.02 Shortness of breath; J44.9 Chronic obstructive pulmonary disease, unspecified; Z88.0 Allergy status to penicillin; Z88.8 Allergy status to other drugs, medicaments and biological substances; Z88.6 Allergy status to analgesic agent; I10 Essential (primary) hypertension; G40.909 Epilepsy, unspecified, not intractable, without status epilepticus
CPT/HCPCS: 36415; 71045; 80053; 82550; 82553; 83880; 84484; 85025; 93005; 94640; 96374; 96375; 96376; 99284; J2270; J2405

== ENCOUNTER 2018-10-22 09:56 | Emergency (ER) | payer MEDICARE, OTHER ==
[~2018-10-22] VITALS: Ht 170.2 cm; Wt 54.4 kg
[~2018-10-22 09:56] MED LIST changes: +MEDROL DOSEPAK4 MG ORAL
[2018-10-22] MEDS ORDERED: PEPCID AC10 MG PO (10:14)
[2018-10-22 10:16] VITALS: BP 160/95
--- NOTE | 2018-10-22 10:17 | NUR ---
ED Nurse Note: came to ED with walker due to pain right shoulder. Per pt, she was at [facility] and MRI result showed torn ligament but was not able to follow up with orthopedic surgeon or PCP. A/Ox4. Hx COPD and Lupus. NAD noted. +CSM.
[2018-10-22] MEDS ORDERED: Morphine Sulfate 2mg/ml Inj(IV/IM USE ONLY) IM ONE (10:30)
--- NOTE | 2018-10-22 10:48 | NUR ---
complaints ofbilateral shoulder pain given im morphine . unable to scan the meds called pharmacy spoke to beth pharmacist . instructed to put in the nurses notes [id number] exp 05/17
[2018-10-22 10:52] VITALS: BP 120/70
--- NOTE | 2018-10-22 11:05 | NUR ---
discharged home with instruction to follow up with pmd. patient left before giving the written instruction . verbal instruction given by
--- NOTE | 2018-10-24 14:28 | Emergency Room Report ---
History of Present Illness General Chief Complaint: Pain Source: Patient Present Illness HPI 68-year-old female ED for evaluation. Patient is here complaining of bilateral shoulder pain. States she has had this pain for years. States she is needing surgery on her shoulders. States that she is scheduled to see an orthopedic soon. Is here for a pain shot. Pain is throbbing, 8 out of 10, nonradiating. Denies any recent fall or injury. Denies any neck pain. No other aggravating relieving factors. Denies any other associated symptoms Allergies: Coded Allergies: KETOROLAC TROMETHAMINE (Verified Allergy, Severe, Anaphylaxis, 10/22/18) PENICILLINS (Verified Allergy, Severe, Anaphylaxis, 10/22/18) TETRACYCLINE (Verified Allergy, Severe, Anaphylaxis, 10/22/18) HALOPERIDOL (Verified Allergy, Intermediate, Anaphylaxis, 10/22/18) HALOPERIDOL LACTATE (Verified Allergy, Intermediate, Anaphylaxis, 10/22/18) ERYTHROMYCIN BASE (Verified Allergy, Mild, 10/22/18) AMPICILLIN (Verified Allergy, Unknown, 10/22/18) ASPIRIN (Verified Allergy, Unknown, 10/22/18) IBUPROFEN (Verified Allergy, Unknown, 10/22/18) NAPROXEN (Verified Allergy, Unknown, 10/22/18) Patient History Past Medical History: HTN, COPD Past Surgical History: none Pertinent Family History: none Social History: Denies: smoking, alcohol use, drug use Now: No Immunizations: UTD Reviewed Nursing Documentation: PMH: Agreed; PSxH: Agreed Nursing Documentation-PMH Past Medical History: No History, Except For Hx Hypertension: Yes Hx Pacemaker: No Hx Asthma: No Hx COPD: Yes - EMPHYSEMA Hx Diabetes: No Hx Cancer: No Hx Dialysis: No Hx Cerebrovascular Accident: No Hx Seizures: Yes Review of Systems All Other Systems: negative except mentioned in HPI Physical Exam Vital Signs Date Time Temp Pulse Resp B/P (MAP) Pulse Ox O2 Delivery O2 Flow Rate FiO2 10/22/18 10:09 99.3 73 16 160/95 (116) 92 Room Air Sp02 EP Interpretation: reviewed, normal General Appearance: no apparent distress, alert, GCS 15, non-toxic, lethargic Head: normocephalic Eyes: bilateral eye normal inspection, bilateral eye PERRL ENT: normal ENT inspection Neck: normal inspection Respiratory: normal inspection Cardiovascular #1: normal inspection Gastrointestinal: normal inspection Rectal: deferred Genitourinary: no CVA tenderness Musculoskeletal: tender - bilateral shoulders Neurologic: alert, oriented x3, responsive, motor strength/tone normal, sensory intact, speech normal Psychiatric: normal inspection Skin: no rash Lymphatic: normal inspection Medical Decision Making Diagnostic Impression: Primary Impression: Chronic pain Qualified Codes: G89.29 - Other chronic pain ER Course Hospital Course 68-year-old female presents ED complaining of bilateral shoulder pain Differential diagnoses include: Fracture, dislocation, sprain, contusion, bursitis Clinical course Patient placed on stretcher. After initial history, physical exam reveals an middle-aged female in no acute distress. Range of motion to both shoulders. No crepitus or bruising. No deformity. I reviewed EMR. Patient has been here multiple times for pain related complaints always requesting pain medications. I reviewed CURES and patient has multiple narcotic prescriptions filled in her name discussed this with the patient. Patient understands she will receive no narcotic prescriptions. Given pain shot here. Will provide orthopedic referrals. Safe for discharge with close outpatient follow-up Diagnosis - chronic pain stable and discharged to home. Followup with PMD/ortho. Return to ED if symptoms recur or worsen Last Vital Signs Date Time Temp Pulse Resp B/P (MAP) Pulse Ox O2 Delivery O2 Flow Rate FiO2 10/22/18 10:52 98.4 76 16 120/70 98 Room Air Status: improved Disposition: HOME, SELF-CARE Condition: Stable Referrals: [facility] Open 24 hour /7 days a week by Appointment Only [address] [facility] [address] [facility] [address] Patient Instructions: Chronic Pain Stephen Win MD Oct 24, 2018 14:28
== END 2018-10-22 11:15 | disposition home or self-care (01) ==
LOC: EMR 10:39
DX: G89.29 Other chronic pain (principal); M25.512 Pain in left shoulder; M25.511 Pain in right shoulder; J44.9 Chronic obstructive pulmonary disease, unspecified; I10 Essential (primary) hypertension; Z88.8 Allergy status to other drugs, medicaments and biological substances; Z88.0 Allergy status to penicillin; Z88.1 Allergy status to other antibiotic agents; Z88.6 Allergy status to analgesic agent
CPT/HCPCS: 96372; 99283; J2270

== ENCOUNTER 2019-01-02 02:34 | Emergency (ER) | payer MEDICARE, OTHER ==
[~2019-01-02] VITALS: Ht 170.2 cm; Wt 54.4 kg
[~2019-01-02 02:34] MED LIST changes: +PEPCID AC10 MG PO
[2019-01-02] MEDS ORDERED: Albuterol ud Inhalation HHN ONE ×2 (02:45→05:15)
[2019-01-02] MEDS ORDERED: Solu-MEDROL 125mg Inj IVP ONE (02:45)
[2019-01-02] MEDS ORDERED: Ipratropium 0.02% Inh Soln 2.5ml UD HHN ONE (02:45)
--- NOTE | 2019-01-02 02:46 | Emergency Room Report ---
History of Present Illness General Chief Complaint: Chest Pain Source: Patient, Family Member, Medical Record, EMS Present Illness HPI This is a 68-year-old female with history of chronic pain, lupus, COPD and high blood pressure. She presents with chief complaint of shortness of breath. She also has right-sided chest pain. She was discharged from [facility] after admission for pneumonia. She was taking antibiotics and finish it. She stated she been getting increasing shortness of breath for last few days. Worse tonight. Her breathing treatment is not helping. No nausea no vomiting. Coughing is productive of phlegm. Victoria short of breath and wheezing. Worse with exertion. Better with rest. Denies any trauma. Denies any other complaint. Allergies: Coded Allergies: KETOROLAC TROMETHAMINE (Verified Allergy, Severe, Anaphylaxis, 10/22/18) PENICILLINS (Verified Allergy, Severe, Anaphylaxis, 10/22/18) TETRACYCLINE (Verified Allergy, Severe, Anaphylaxis, 10/22/18) HALOPERIDOL (Verified Allergy, Intermediate, Anaphylaxis, 10/22/18) HALOPERIDOL LACTATE (Verified Allergy, Intermediate, Anaphylaxis, 10/22/18) ERYTHROMYCIN BASE (Verified Allergy, Mild, 10/22/18) AMPICILLIN (Verified Allergy, Unknown, 10/22/18) ASPIRIN (Verified Allergy, Unknown, 10/22/18) IBUPROFEN (Verified Allergy, Unknown, 10/22/18) NAPROXEN (Verified Allergy, Unknown, 10/22/18) Patient History Past Medical History: see triage record, old chart reviewed, HTN, COPD Past Surgical History: other Pertinent Family History: none Social History: Denies: smoking - history Now: No Immunizations: other Reviewed Nursing Documentation: PMH: Agreed; PSxH: Agreed Nursing Documentation-PMH Past Medical History: No History, Except For Hx Hypertension: Yes Hx Pacemaker: No Hx Asthma: No Hx COPD: Yes - COPD AND EMPHYSEMA Hx Diabetes: No Hx Cancer: No Hx Dialysis: No Hx Cerebrovascular Accident: No Hx Seizures: Yes Review of Systems Eye: Denies: eye pain, blurred vision ENT: Denies: ear pain, nose congestion, throat swelling Respiratory: Reports: cough, shortness of breath, wheezing Cardiovascular: Reports: chest pain; Denies: palpitations Gastrointestinal: Denies: abdominal pain, diarrhea, nausea, vomiting Musculoskeletal: Denies: back pain, joint pain Skin: Denies: rash Neurological: Denies: headache, numbness Endocrine: Denies: increased thirst, increased urine Hematologic/Lymphatic: Denies: easy bruising All Other Systems: negative except mentioned in HPI Physical Exam Vital Signs Date Time Temp Pulse Resp B/P (MAP) Pulse Ox O2 Delivery O2 Flow Rate FiO2 01/02/19 02:35 98.8 108 20 160/100 (120) 98 Room Air Vitals with high blood pressure Sp02 EP Interpretation: reviewed, normal General Appearance: moderate distress, Chronically Ill Head: normocephalic, atraumatic Eyes: bilateral eye PERRL, bilateral eye EOMI ENT: hearing grossly normal, normal pharynx Neck: full range of motion, supple, no meningismus Respiratory: chest non-tender, respiratory distress, decreased breath sounds, accessory muscle use, wheezing Cardiovascular #1: regular rate, rhythm, no murmur Gastrointestinal: normal bowel sounds, non tender, no mass, no organomegaly, no bruit, non-distended Musculoskeletal: back normal, gait/station normal, normal range of motion Neurologic: alert, oriented x3 Psychiatric: anxious Medical Decision Making Diagnostic Impression: Primary Impression: COPD exacerbation Additional Impressions: Chronic pain Qualified Codes: G89.4 - Chronic pain syndrome Respiratory failure, acute and chronic Qualified Codes: J96.20 - Acute and chronic respiratory failure, unspecified whether with hypoxia or hypercapnia ER Course Patient presents with respiratory distress with acute on chronic respiratory failure. Chest x-ray is unremarkable. CT scan showed extensive emphysema. No evidence of infiltrates. No evidence of ACS, PE, dissection to name a few. Better after breathing treatment. Because of her condition, keep in the hospital for further work-up and breathing treatment. She is currently taking antibiotics already. She was at [facility] for 4 days and discharged 2 days ago. Still finishing up antibiotics. This is most likely viral in nature especially with elevated monocyte count. Patient is stable for transfer to outside hospital to insurance. Lab Results Impression Labs unremarkable EKG Diagnostic Results Rate: normal Rhythm: NSR ST Segments: no acute changes Rhythm Strip Diag. Results EP Interpretation: yes Rate: 99 Rhythm: NSR, no PVC's, no ectopy Chest X-Ray Diagnostic Results Chest X-Ray Diagnostic Results : Chest X-Ray Ordered: Yes # of Views/Limited/Complete: 1 View Indication: Shortness of Breath EP Interpretation: Yes Interpretation: no consolidation, no effusion, no pneumothorax, no acute cardiopulmonary disease Impression: No acute disease - copd Electronically Signed by: Ralph Peña MD CT/MRI/US Diagnostic Results CT/MRI/US Diagnostic Results : Imaging Test Ordered: CT chest Impression Read by radiologist. No PE. No aneurysm. Extensive emphysema. Last Vital Signs Date Time Temp Pulse Resp B/P (MAP) Pulse Ox O2 Delivery O2 Flow Rate FiO2 01/02/19 02:35 98.8 108 20 160/100 (120) 98 Room Air Status: improved Disposition: ER [facility] Condition: Stable Ralph Peña MD Jan 02, 2019 02:46
[2019-01-02 02:58] VITALS: BP 160/100
--- NOTE | 2019-01-02 03:08 | NUR ---
ED Nurse Note: Patient was BIBA from home, due to SOB , CP. Patient presented diaphoretic, anxious, with wheezzes all over 4 lobs. AAO x4, VSS at this time, skin is moist.
--- NOTE | 2019-01-02 03:10 | NUR ---
ED Nurse Note: RT by bed side.
[2019-01-02] MEDS ORDERED: Morphine Sulfate 4mg/ml Inj (IV USE ONLY) IVP ONE ×2 (03:15→05:30)
[2019-01-02 03:23] LABS: BASOPHILS % (AUTO) 0.4 % (0.0-2.0); EOSINOPHILS % (AUTO) 1.9 % (0.0-3.0); HEMATOCRIT 43.4 % (37.0-47.0); HEMOGLOBIN 13.6 G/DL (12.0-16.0); LYMPHOCYTES % (AUTO) 14.5 % (20.0-45.0); MEAN CORPUSCULAR VOLUME 85 FL (80-99); NEUTROPHILS % (AUTO) 70.3 % (45.0-75.0); PLATELET COUNT 251 K/UL (150-450); RED BLOOD COUNT 5.13 M/UL (4.20-5.40); RED CELL DISTRIBUTION WIDTH 16.9 % (11.6-14.8); WHITE BLOOD COUNT 8.8 K/UL (4.8-10.8)
[2019-01-02 03:27] LABS: ANION GAP 9 mmol/L (5-15); BLOOD UREA NITROGEN 13 mg/dL (7-18); CARBON DIOXIDE 29 MMOL/L (21-32); CHLORIDE 106 MMOL/L (98-107); CREATININE 0.7 MG/DL (0.55-1.30); POTASSIUM 3.3 MMOL/L (3.5-5.1); SODIUM 144 MMOL/L (136-145)
[2019-01-02 03:38] LABS: ALANINE AMINOTRANSFERASE 46 U/L (12-78); ALBUMIN 3.4 G/DL (3.4-5.0); ALBUMIN/GLOBULIN RATIO 0.9 (1.0-2.7); ALKALINE PHOSPHATASE 100 U/L (46-116); ASPARTATE AMINO TRANSFERASE 21 U/L (15-37); BILIRUBIN,TOTAL 0.5 MG/DL (0.2-1.0)
[2019-01-02] MEDS ORDERED: Omnipaue 350mg/ml 100ml vial INJ PRN (03:45)
[2019-01-02 04:00] VITALS: BP 152/101
--- NOTE | 2019-01-02 04:30 | Diagnostic Imaging Report ---
ndication: Shortness of breath Technique: IV administration nonionic contrast. Spiral acquisitions obtained from the lung bases to the lung apices. Multiplanar and 3-D reconstructions were generated. Total dose length product 547 mGycm. CTDIvol(s) 15 mGy. Dose reduction achieved using automated exposure control Comparison: none Findings: No intraluminal filling defects to suggest acute pulmonary embolus demonstrated. The main pulmonary artery is ectatic, measuring 38 mm in diameter, and the right and left main pulmonary arteries are also ectatic, measuring 24 and 26 mm. The ascending thoracic aorta is somewhat ectatic, measuring 38 mm. No evidence of thoracic aortic dissection. There is variant great neck vessels branching anatomy, with common origin of the right brachiocephalic and left common carotid artery and separate origin of the left vertebral artery off of the aortic arch. There is no evidence of right ventricular dilatation. There is evidence of left ventricular muscular hypertrophy. Lungs demonstrate diffuse hyperinflation. Bilateral upper lobe bullous changes are demonstrated, much more severe on the right than on the left. Diffuse groundglass opacity elsewhere presumably reflects compressive normal parenchyma. Areas of atelectasis and/or scarring with cicatrization are seen in the bilateral lower lobes, left greater than right. No definite infiltrates, effusions, masses, or nodules are demonstrated. No pericardial effusion. The esophagus is unremarkable. The thyroid is somewhat heterogeneous, demonstrates several small nodules. No mediastinal or hilar mass or adenopathy. No axillary or chest wall mass or adenopathy. The included upper abdominal anatomy demonstrates a probable left renal cyst in the upper pole Impression: Negative for acute pulmonary embolus or other acute thoracic vascular pathology Evidence of COPD, with generalized hyperinflation, bullous changes, and centrilobular emphysema and groundglass opacity Bilateral basilar pulmonary atelectasis versus scarring with cicatrization, favor the latter Evidence of left ventricular muscular hypertrophy Ectatic but not frankly dilated pulmonary arteries, suggestive of but not conclusive for pulmonary arterial hypertension Mildly ectatic ascending thoracic aorta Multiple subcentimeter thyroid nodules. No further follow-up necessary Incidental finding probable left renal cyst This agrees with the preliminary interpretation provided overnight by [facility] teleradiology service. The CT scanner at [facility] is accredited by the [employer] and the scans are performed using protocols designed to limit radiation exposure to as low as reasonably achievable to attain images of sufficient resolution adequate for diagnostic evaluation.
[2019-01-02 05:03] VITALS: BP 140/72
--- NOTE | 2019-01-02 05:14 | NUR ---
ED Nurse Note: report given to Jazmin Deluna from [facility].
[2019-01-02 07:32] VITALS: BP 165/78
--- NOTE | 2019-01-02 07:34 | NUR ---
ED Nurse Note: Patient was transfered to [facility] due to astma exoserbation. Patient's O2 sat 98% at 2 L via NC. Patient was trans[id number]. Patient tokk all belongings, AAO x4, VSS a this time, skin is warm to touch. is by bed side.
--- NOTE | 2019-01-02 11:22 | Diagnostic Imaging Report ---
Indication: Shortness of breath for one day Technique: One view of the chest Comparison: 08/20/2018 Findings: There is some atelectasis or scarring at the right lung base. Lungs are hyperinflated. Bullous changes are again demonstrated in the right upper lobe. No definite acute infiltrates, effusions, or congestion. The heart size is normal. No significant interim change Impression: No acute process COPD changes
--- NOTE | 2019-01-02 15:54 | Cardiology Report ---
APPROVED REPORT EKG Measurement Heart [id number] Normal sinus rhythm Nonspecific ST and T wave abnormality Abnormal ECG
== END 2019-01-02 07:37 | disposition short-term general hospital (02) ==
LOC: EDBD 02:34 → EDUNIT# 02:34 → EMR 03:03
DX: J44.1 Chronic obstructive pulmonary disease with (acute) exacerbation (principal); J96.20 Acute and chronic respiratory failure, unspecified whether with hypoxia or hypercapnia; G89.4 Chronic pain syndrome; I10 Essential (primary) hypertension; G40.909 Epilepsy, unspecified, not intractable, without status epilepticus; Z88.0 Allergy status to penicillin; Z88.1 Allergy status to other antibiotic agents; Z88.6 Allergy status to analgesic agent
CPT/HCPCS: 36415; 71045; 71275; 80053; 83880; 84484; 85025; 93005; 94640; 96365; 96366; 96375; 96376; 99284; J2270; J2405; J2930; Q9967

== ENCOUNTER 2019-02-22 06:41 | Emergency (ER) | payer MEDICARE, OTHER ==
[~2019-02-22] VITALS: Ht 167.6 cm; Wt 54.4 kg
[2019-02-22 06:49] VITALS: BP 128/77
--- NOTE | 2019-02-22 06:57 | Emergency Room Report ---
History of Present Illness General Chief Complaint: Upper Respiratory Illness Source: Patient, Medical Record Present Illness HPI Patient presents with complaints of shortness of breath cough and congestion patient reports that she has been in the hospital 3 times over the past 1 month for pneumonia Patient reports that she has increased nausea vomiting as well Has history of diverticulitis Denies any back or flank pain denies any dysuria patient has discomfort to the epigastric area as well Patient has history of lupus and emphysema Unknown regarding fevers denies any recent rash Allergies: Coded Allergies: KETOROLAC TROMETHAMINE (Verified Allergy, Severe, Anaphylaxis, 10/22/18) PENICILLINS (Verified Allergy, Severe, Anaphylaxis, 10/22/18) TETRACYCLINE (Verified Allergy, Severe, Anaphylaxis, 10/22/18) HALOPERIDOL (Verified Allergy, Intermediate, Anaphylaxis, 10/22/18) HALOPERIDOL LACTATE (Verified Allergy, Intermediate, Anaphylaxis, 10/22/18) ERYTHROMYCIN BASE (Verified Allergy, Mild, 10/22/18) AMPICILLIN (Verified Allergy, Unknown, 10/22/18) ASPIRIN (Verified Allergy, Unknown, 10/22/18) IBUPROFEN (Verified Allergy, Unknown, 10/22/18) NAPROXEN (Verified Allergy, Unknown, 10/22/18) Patient History Past Medical History: see triage record Reviewed Nursing Documentation: PMH: Agreed; PSxH: Agreed Nursing Documentation-PMH Hx Hypertension: Yes Hx Pacemaker: No Hx Asthma: No Hx COPD: Yes - COPD AND EMPHYSEMA Hx Diabetes: No Hx Cancer: No Hx Dialysis: No Hx Cerebrovascular Accident: No Hx Seizures: Yes Review of Systems All Other Systems: negative except mentioned in HPI Physical Exam Vital Signs Date Time Temp Pulse Resp B/P (MAP) Pulse Ox O2 Delivery O2 Flow Rate FiO2 02/22/19 06:37 98.8 59 19 128/77 (94) 98 Room Air Sp02 EP Interpretation: reviewed, normal General Appearance: mild distress - Mildly tachypneic Head: normocephalic, atraumatic Eyes: bilateral eye PERRL, bilateral eye EOMI ENT: hearing grossly normal, EOM grossly intact Neck: full range of motion, supple Respiratory: no retraction, no accessory muscle use, wheezing - Bilaterally Cardiovascular #1: regular rate, rhythm Gastrointestinal: non tender, soft Musculoskeletal: normal inspection Neurologic: alert, oriented x3 Skin: other Medical Decision Making Diagnostic Impression: Primary Impression: COPD exacerbation ER Course Patient is a fairly complex patient with multiple differential to consideration including but not limited to cardiac cardiopulmonary and vascular emergencies Patient also complaining of diffuse pain and reports that her lupus is flaring up Patient received IM injection of pain medication breathing treatments on repeat evaluation feels that her breathing is significantly improved Blood work is at baseline levels and x-ray does not show any change And patient disposition for close outpatient follow-up Labs Test 02/22/19 09:20 White Blood Count 8.1 K/UL (4.8-10.8) Red Blood Count 5.51 M/UL (4.20-5.40) Hemoglobin 14.2 G/DL (12.0-16.0) Hematocrit 46.4 % (37.0-47.0) Mean Corpuscular Volume 84 FL (80-99) Mean Corpuscular Hemoglobin 25.7 PG (27.0-31.0) Mean Corpuscular Hemoglobin Concent 30.5 G/DL (32.0-36.0) Red Cell Distribution Width 17.8 % (11.6-14.8) Platelet Count 327 K/UL (150-450) Mean Platelet Volume 5.6 FL (6.5-10.1) Neutrophils (%) (Auto) % (45.0-75.0) Lymphocytes (%) (Auto) % (20.0-45.0) Monocytes (%) (Auto) % (1.0-10.0) Eosinophils (%) (Auto) % (0.0-3.0) Basophils (%) (Auto) % (0.0-2.0) Differential Total Cells Counted 100 Neutrophils % (Manual) 88 % (45-75) Lymphocytes % (Manual) 7 % (20-45) Monocytes % (Manual) 5 % (1-10) Eosinophils % (Manual) 0 % (0-3) Basophils % (Manual) 0 % (0-2) Band Neutrophils 0 % (0-8) Platelet Estimate Adequate Platelet Morphology Normal Anisocytosis 1+ Sodium Level 137 MMOL/L (136-145) Potassium Level 3.7 MMOL/L (3.5-5.1) Chloride Level 105 MMOL/L (98-107) Carbon Dioxide Level 23 MMOL/L (21-32) Anion Gap 9 mmol/L (5-15) Blood Urea Nitrogen 19 mg/dL (7-18) Creatinine 0.7 MG/DL (0.55-1.30) Estimat Glomerular Filtration Rate > 60 mL/min (>60) Glucose Level 89 MG/DL (74-106) Calcium Level 8.0 MG/DL (8.5-10.1) Total Bilirubin 1.2 MG/DL (0.2-1.0) Direct Bilirubin 0.2 MG/DL (0.0-0.3) Aspartate Amino Transf (AST/SGOT) 29 U/L (15-37) Alanine Aminotransferase (ALT/SGPT) 58 U/L (12-78) Alkaline Phosphatase 78 U/L (46-116) Troponin I 0.006 ng/mL (0.000-0.056) Pro-B-Type Natriuretic Peptide 1640 pg/mL (0-125) Total Protein 7.0 G/DL (6.4-8.2) Albumin 3.1 G/DL (3.4-5.0) Globulin 3.9 g/dL Albumin/Globulin Ratio 0.8 (1.0-2.7) Rhythm Strip Diag. Results EP Interpretation: yes Rate: 105 Rhythm: no PVC's, no ectopy, other - Sinus tach Chest X-Ray Diagnostic Results Chest X-Ray Diagnostic Results : Chest X-Ray Ordered: Yes # of Views/Limited/Complete: 1 View Indication: Shortness of Breath EP Interpretation: Yes Interpretation: no consolidation, no effusion, no pneumothorax, other - Hyperexpansion Impression: Other - Hyperexpansion Electronically Signed by: Elo Ascencio DO Last Vital Signs Date Time Temp Pulse Resp B/P (MAP) Pulse Ox O2 Delivery O2 Flow Rate FiO2 02/22/19 06:37 97.2 57 20 128/77 (94) 98 Room Air Status: improved Disposition: HOME, SELF-CARE Condition: Improved Additional Instructions: Patient is provided with the discharge instructions notified to follow up with primary doctor in the next 2-3 days otherwise return to the er with any worsening symptoms. Please note that this report is being documented using [employer] technology. This can lead to erroneous entry secondary to incorrect interpretation by the dictating instrument. Elo Ascencio DO Feb 22, 2019 06:57
[2019-02-22] MEDS ORDERED: Albuterol ud Inhalation HHN ONE (07:00)
[2019-02-22] MEDS ORDERED: Ipratropium 0.02% Inh Soln 2.5ml UD HHN ONE (07:00)
[2019-02-22] MEDS ORDERED: Solu-MEDROL 125mg Inj IVP ONE (07:00)
[2019-02-22 07:15] VITALS: BP 128/84
[2019-02-22] MEDS ORDERED: Morphine Sulfate 4mg/ml Inj (IV USE ONLY) ONE (08:23)
[2019-02-22] MEDS ORDERED: Morphine Sulfate 2mg/ml Inj(IV/IM USE ONLY) IM ONE ×2 (08:30→10:15)
[2019-02-22 09:41] LABS: HEMATOCRIT 46.4 % (37.0-47.0); HEMOGLOBIN 14.2 G/DL (12.0-16.0); MEAN CORPUSCULAR VOLUME 84 FL (80-99); PLATELET COUNT 327 K/UL (150-450); RED BLOOD COUNT 5.51 M/UL (4.20-5.40); RED CELL DISTRIBUTION WIDTH 17.8 % (11.6-14.8); WHITE BLOOD COUNT 8.1 K/UL (4.8-10.8)
[2019-02-22 09:50] LABS: ANION GAP 9 mmol/L (5-15); BLOOD UREA NITROGEN 19 mg/dL (7-18); CARBON DIOXIDE 23 MMOL/L (21-32); CHLORIDE 105 MMOL/L (98-107); CREATININE 0.7 MG/DL (0.55-1.30); POTASSIUM 3.7 MMOL/L (3.5-5.1); SODIUM 137 MMOL/L (136-145)
[2019-02-22 10:02] LABS: ALANINE AMINOTRANSFERASE 58 U/L (12-78); ALBUMIN 3.1 G/DL (3.4-5.0); ALBUMIN/GLOBULIN RATIO 0.8 (1.0-2.7); ALKALINE PHOSPHATASE 78 U/L (46-116); ASPARTATE AMINO TRANSFERASE 29 U/L (15-37); BILIRUBIN,TOTAL 1.2 MG/DL (0.2-1.0)
[2019-02-22 10:10] LABS: BILIRUBIN,DIRECT 0.2 MG/DL (0.0-0.3)
[2019-02-22] MEDS ORDERED: HYDROmorphone 1mg/ml Carpuject IM ONE (12:30)
[2019-02-22 13:00] VITALS: BP 126/82
--- NOTE | 2019-02-22 15:18 | Diagnostic Imaging Report ---
Indication: Dyspnea Comparison: 01/02/2019 A single view chest radiograph was obtained. Findings: Evidence of chronic lung disease again demonstrated with emphysema in the upper lobes especially on the right. Lungs are hyperexpanded. Cardiomegaly is stable. Aorta is ectatic and calcified. Bones are osteopenic. IMPRESSION: COPD/emphysema. No change
== END 2019-02-22 13:00 | disposition home or self-care (01) ==
LOC: EDBD 06:41 → EMR 07:43
DX: J44.1 Chronic obstructive pulmonary disease with (acute) exacerbation (principal); I10 Essential (primary) hypertension; G40.909 Epilepsy, unspecified, not intractable, without status epilepticus; Z88.0 Allergy status to penicillin; Z88.6 Allergy status to analgesic agent; Z88.1 Allergy status to other antibiotic agents; Z88.8 Allergy status to other drugs, medicaments and biological substances
CPT/HCPCS: 36415; 71045; 80053; 82248; 83880; 84484; 85007; 85025; 87040; 93005; 96372; 99284; J1170; J2270; J7040

== ENCOUNTER 2019-03-11 09:49 | Emergency (ER) | payer MEDICARE, OTHER ==
[~2019-03-11] VITALS: Ht 165.1 cm; Wt 56.7 kg
--- NOTE | 2019-03-11 09:55 | NUR ---
ED Nurse Note: Patient was brought into ED by ambulance [employer] 29 from grocery store c/o SOB 1 hour prior to arrival to ED, patient c/o generalized body aches. patient is a/o x3 ambulatory with her walker, on a hopsital gown, on a electronic device monitor.
[2019-03-11] MEDS ORDERED: Morphine Sulfate 2mg/ml Inj(IV/IM USE ONLY) IM ONE (10:15)
[2019-03-11 10:33] VITALS: BP 129/82
--- NOTE | 2019-03-11 10:37 | NUR ---
ED Nurse Note: RT at bedside.
[2019-03-11] MEDS: Albuterol ud Inhalation HHN SCH ×2 (10:45→11:06)
[2019-03-11] MEDS: Ipratropium 0.02% Inh Soln 2.5ml UD HHN SCH ×2 (10:45→11:06)
--- NOTE | 2019-03-11 10:56 | Emergency Room Report ---
History of Present Illness General Chief Complaint: Dyspnea/Respdistress Source: Patient Present Illness HPI 68-year-old female presents ED for evaluation. Brought in by EMS from's grocery store. Complaining of shortness of breath. History of COPD. Given breathing treatments by EMS. States she feels somewhat better. Symptoms started last night. Denies fevers or chills. Denies chest pain. Notes generalized body pain. History of lupus. 10 out of 10, dull, nonradiating. No other aggravating relieving factors. Denies any other associated symptoms Allergies: Coded Allergies: KETOROLAC TROMETHAMINE (Verified Allergy, Severe, Anaphylaxis, 10/22/18) PENICILLINS (Verified Allergy, Severe, Anaphylaxis, 10/22/18) TETRACYCLINE (Verified Allergy, Severe, Anaphylaxis, 10/22/18) HALOPERIDOL (Verified Allergy, Intermediate, Anaphylaxis, 10/22/18) HALOPERIDOL LACTATE (Verified Allergy, Intermediate, Anaphylaxis, 10/22/18) ERYTHROMYCIN BASE (Verified Allergy, Mild, 10/22/18) AMPICILLIN (Verified Allergy, Unknown, 10/22/18) ASPIRIN (Verified Allergy, Unknown, 10/22/18) IBUPROFEN (Verified Allergy, Unknown, 10/22/18) NAPROXEN (Verified Allergy, Unknown, 10/22/18) Patient History Past Medical History: COPD, other - lupus Past Surgical History: none Pertinent Family History: none Social History: Denies: smoking, alcohol use, drug use Now: No Immunizations: UTD Reviewed Nursing Documentation: PMH: Agreed; PSxH: Agreed Nursing Documentation-PMH Past Medical History: No History, Except For Hx Hypertension: Yes Hx Pacemaker: No Hx Asthma: No Hx COPD: Yes - COPD AND EMPHYSEMA Hx Diabetes: No Hx Cancer: No Hx Dialysis: No Hx Cerebrovascular Accident: No Hx Seizures: Yes Review of Systems All Other Systems: negative except mentioned in HPI Physical Exam Vital Signs Date Time Temp Pulse Resp B/P (MAP) Pulse Ox O2 Delivery O2 Flow Rate FiO2 03/11/19 09:45 97.5 102 24 144/91 (108) 100 Venturi Mask 6.0 03/11/19 10:45 21 Sp02 EP Interpretation: reviewed, normal General Appearance: no apparent distress, alert, GCS 15, non-toxic Head: normocephalic, atraumatic Eyes: bilateral eye normal inspection, bilateral eye PERRL ENT: hearing grossly normal, normal pharynx, no angioedema, normal voice Neck: full range of motion, supple/symm/no masses Respiratory: chest non-tender, speaking full sentences, wheezing Cardiovascular #1: regular rate, rhythm, no edema Cardiovascular #2: 2+ carotid (R), 2+ carotid (L), 2+ radial (R), 2+ radial (L) , 2+ dorsalis pedis (R), 2+ dorsalis pedis (L) Gastrointestinal: normal bowel sounds, non tender, soft, non-distended, no guarding, no rebound Rectal: deferred Genitourinary: normal inspection, no CVA tenderness Musculoskeletal: back normal, normal range of motion, gait/station normal, non- tender Neurologic: alert, motor strength/tone normal, oriented x3, sensory intact, responsive, speech normal Psychiatric: judgement/insight normal, memory normal, mood/affect normal, no suicidal/homicidal ideation Reflexes: 3+ bicep (R), 3+ bicep (L), 3+ tricep (R), 3+ tricep (L), 3+ knee (R) , 3+ knee (L) Skin: other - areas of hypopigmentation to face, scalp, arms Lymphatic: no adenopathy Medical Decision Making Diagnostic Impression: Primary Impression: COPD bronchitis Additional Impressions: Exacerbation of systemic lupus Chronic pain Qualified Codes: G89.29 - Other chronic pain ER Course Hospital Course 68 yo F presents c/o cough. wheezing. genearlized pain Differential diagnoses include: URI, bronchitis, asthma/COPD, pneumonia Clinical course Patient placed on stretcher. After initial history and physical I ordered pain meds, prednisone and nebulizer treatment. Reassessment symptoms improved. Improved breathing. O2 sats normal. Discussed findings with patient. Will discharge with prescription for inhaler, steroids, antibiotics given COPD history. Safe for discharge with close outpatient follow-up. States she has a PMD Diagnosis - COPD bronchitis, exacerbation of systemic lupus, chronic pain Stable and discharged home with prescriptions for Rx albuterol, prednisone, levaquin. Instructed to followup with PMD. Return to ED if symptoms recur or worsen Last Vital Signs Date Time Temp Pulse Resp B/P (MAP) Pulse Ox O2 Delivery O2 Flow Rate FiO2 03/11/19 10:45 100 20 100 21 03/11/19 10:35 Room Air 6.0 03/11/19 10:33 97.5 129/82 Status: improved Disposition: HOME, SELF-CARE Condition: Stable Scripts Albuterol Sulfate* (ALBUTEROL SULFATE MDI*) 8.5 Gm Hfa.aer.ad 2 PUFF INH Q6H, #1 EA 0 Refills Prov: Stephen Win MD 03/11/19 Prednisone* (PREDNISONE*) 20 Mg Tablet 40 MG ORAL DAILY for 5 Days, #10 TAB Prov: Stephen Win MD 03/11/19 Levofloxacin* (LEVAQUIN*) 750 Mg Tablet 750 MG ORAL DAILY for 5 Days, TAB Prov: Stephen Win MD 03/11/19 Referrals: NOT [facility]OS[facility]/,REFERRING (PCP) Stephen Win MD Mar 11, 2019 10:56
[2019-03-11] MEDS ORDERED: LEVAQUIN750 MG ORAL (11:31)
[2019-03-11] MEDS ORDERED: ALBUTEROL SULF8.5 GM INH (11:32)
[2019-03-11] MEDS ORDERED: PREDNISONE20 MG ORAL (11:32)
[2019-03-11 11:33] VITALS: BP 151/72
[2019-03-11 11:44] VITALS: BP 151/72
--- NOTE | 2019-03-11 11:45 | NUR ---
ER DISCHARGE NOTE: Patient is cleared to be discharged per ERMD DR AMAYA, pt is aox4, on room air, with stable vital signs. pt was given dc and prescription instructions, pt was able to verbalize understanding, pt id band removed without complications. pt is able to ambulate with steady gait. pt took all belongings.
== END 2019-03-11 11:44 | disposition home or self-care (01) ==
LOC: EDBD 09:49 → EMR 10:08
DX: J44.9 Chronic obstructive pulmonary disease, unspecified (principal); M32.9 Systemic lupus erythematosus, unspecified; G89.29 Other chronic pain; Z88.0 Allergy status to penicillin; Z88.6 Allergy status to analgesic agent; Z88.8 Allergy status to other drugs, medicaments and biological substances; I10 Essential (primary) hypertension; G40.909 Epilepsy, unspecified, not intractable, without status epilepticus
CPT/HCPCS: 96372; 99284; J2270; J7512

== ENCOUNTER 2019-04-03 09:20 | Emergency (ER) | payer MEDICARE, OTHER ==
[~2019-04-03] VITALS: Ht 170.2 cm; Wt 54.4 kg
--- NOTE | 2019-04-03 09:19 | NUR ---
ED Nurse Note: PT ARRIVED WITH [facility]. PT REPORTS ALL OVER BODY ACHES X 2 DAYS AND CONGESTION. NAD NOTED.
[2019-04-03 09:20] VITALS: BP 126/80
--- NOTE | 2019-04-03 09:20 | NUR ---
ED Nurse Note: noted facial pigmentation changes to face
--- NOTE | 2019-04-03 09:38 | NUR ---
ED Nurse Note: pt ambulated to bathroom with walk on steady gait and obtained urine specimen. urine specimen sent to lab
--- NOTE | 2019-04-03 09:44 | Emergency Room Report ---
History of Present Illness General Chief Complaint: Pain Source: Patient Present Illness HPI 68-year-old female presents after increased generalized abdominal pain. Reports having prior history of lupus. She states that she is been having increased pain to her abdomen for the past few days. Associated cough. Prior history of COPD. She reports recently having taken oral steroids. Denies any hematemesis or bloody stools. Allergies: Coded Allergies: KETOROLAC TROMETHAMINE (Verified Allergy, Severe, Anaphylaxis, 10/22/18) PENICILLINS (Verified Allergy, Severe, Anaphylaxis, 10/22/18) TETRACYCLINE (Verified Allergy, Severe, Anaphylaxis, 10/22/18) HALOPERIDOL (Verified Allergy, Intermediate, Anaphylaxis, 10/22/18) HALOPERIDOL LACTATE (Verified Allergy, Intermediate, Anaphylaxis, 10/22/18) ERYTHROMYCIN BASE (Verified Allergy, Mild, 10/22/18) AMPICILLIN (Verified Allergy, Unknown, 10/22/18) ASPIRIN (Verified Allergy, Unknown, 10/22/18) IBUPROFEN (Verified Allergy, Unknown, 10/22/18) NAPROXEN (Verified Allergy, Unknown, 10/22/18) Patient History Past Medical History: see triage record, COPD Past Surgical History: other - Multiple intestinal surgeries. Reviewed Nursing Documentation: PMH: Agreed; PSxH: Agreed Nursing Documentation-PMH Past Medical History: No History, Except For Hx Hypertension: Yes Hx Pacemaker: No Hx Asthma: No Hx COPD: Yes Hx Diabetes: No Hx Cancer: No Hx Dialysis: No Hx Cerebrovascular Accident: No Hx Seizures: Yes Review of Systems All Other Systems: negative except mentioned in HPI Physical Exam Vital Signs Date Time Temp Pulse Resp B/P (MAP) Pulse Ox O2 Delivery O2 Flow Rate FiO2 04/03/19 09:16 99.0 106 19 126/80 (95) 99 Room Air Sp02 EP Interpretation: reviewed, normal General Appearance: normal inspection, well appearing, no apparent distress, alert, GCS 15 Head: atraumatic ENT: normal ENT inspection, hearing grossly normal, normal voice Neck: normal inspection, full range of motion, supple, no bony tend Respiratory: normal inspection, lungs clear, normal breath sounds, no respiratory distress, no retraction, no wheezing Cardiovascular #1: regular rate, rhythm, no edema Gastrointestinal: normal inspection, normal bowel sounds, non tender, soft, no guarding, no hernia Genitourinary: no CVA tenderness Musculoskeletal: back normal, other - Arthritic changes noted to the hands Neurologic: alert, motor strength/tone normal, service inspector III-XII nml as tested, oriented x3, responsive, speech normal, normal inspection Psychiatric: normal inspection, judgement/insight normal, mood/affect normal Skin: other - Skin color pigment changes to the face Medical Decision Making Diagnostic Impression: Primary Impression: COPD (chronic obstructive pulmonary disease) Additional Impressions: Chronic pain Lupus ER Course Patient presented for exacerbation of joint pain. Differential diagnosis include was not limited to arthritis, lupus, COPD exacerbation among others. Patient has a benign exam and does not appear to require any imaging or laboratory testing at this time. Patient was noted to have prior history of chronic pain and does not appear to have any evidence of acute injury. Patient was seen by me in the emergency department. Medications were ordered however patient eloped without notifying staff prior to receiving medications. Patient appears to be in no apparent distress and is awake alert and oriented prior to leaving the hospital. She was noted to be ambulatory with a walker. Last Vital Signs Date Time Temp Pulse Resp B/P (MAP) Pulse Ox O2 Delivery O2 Flow Rate FiO2 04/03/19 09:20 99.0 106 19 126/80 99 Room Air Status: unchanged Disposition: ELOPED Condition: Stable Karthikeyan Mueller MD Apr 03, 2019 09:44
[2019-04-03] MEDS ORDERED: Albuterol/Ipratropium 3ml neb HHN ONE (09:45)
--- NOTE | 2019-04-03 09:46 | NUR ---
ED Nurse Note: Pt refused bentyl. medication wasted in pysix.
[2019-04-03] MEDS: Dicyclomine HCl 10mg/5ml oral soln ORAL ONE ×2 (09:48→09:50)
[2019-04-03 09:55] VITALS: BP 135/96
--- NOTE | 2019-04-03 09:55 | NUR ---
ELOPEMENT: Pt eloped. Pt was aox4, ambualtory with walker on steady gait. pt took all belongings. NAD. ERMD aware.
[2019-04-03] MEDS ORDERED: HYDROcodone/Acetamin 5/325 tab ORAL ONE (10:00)
[2019-05-15] MEDS ORDERED: FAMOTIDINE20 MG ORAL (07:40)
== END 2019-04-03 09:55 | disposition left against medical advice (07) ==
LOC: EDBD 09:20 → EMR 09:55
DX: J44.9 Chronic obstructive pulmonary disease, unspecified (principal); G89.29 Other chronic pain; M32.9 Systemic lupus erythematosus, unspecified; Z88.0 Allergy status to penicillin; Z88.1 Allergy status to other antibiotic agents; Z88.6 Allergy status to analgesic agent; Z88.8 Allergy status to other drugs, medicaments and biological substances
CPT/HCPCS: 99282; J7620

== ENCOUNTER 2019-04-17 07:21 | Emergency (ER) | payer MEDICARE, OTHER ==
[~2019-04-17] VITALS: Ht 154.9 cm; Wt 59.0 kg
[2019-04-17 07:20] VITALS: BP 140/80
--- NOTE | 2019-04-17 07:22 | NUR ---
ED Nurse Note: Pt BIBA from home d/t generalized body pain started 4 days ago. Per pt, she has hx of lupus. ERMD on bedside.
--- NOTE | 2019-04-17 07:26 | Emergency Room Report ---
History of Present Illness General Chief Complaint: Pain Source: Patient, Medical Record, EMS Present Illness HPI Patient is a 68-year-old female well-known to this emergency room past medical history of lupus and emphysema from smoking who presents to the ER complaining of generalized body aches. Patient states that this is her lupus flare. Patient states that she needs some pain medicine and then wants to go home. Patient was brought in by EMS. Patient denies any fever or chills. Patient denies any chest pain or shortness of breath. Patient is declining any IV or blood work at this time. She is requesting Dilaudid intramuscular. Patient complains of a chronic cough from her smoking. She denies any sputum. Allergies: Coded Allergies: KETOROLAC TROMETHAMINE (Verified Allergy, Severe, Anaphylaxis, 10/22/18) PENICILLINS (Verified Allergy, Severe, Anaphylaxis, 10/22/18) TETRACYCLINE (Verified Allergy, Severe, Anaphylaxis, 10/22/18) HALOPERIDOL (Verified Allergy, Intermediate, Anaphylaxis, 10/22/18) HALOPERIDOL LACTATE (Verified Allergy, Intermediate, Anaphylaxis, 10/22/18) ERYTHROMYCIN BASE (Verified Allergy, Mild, 10/22/18) AMPICILLIN (Verified Allergy, Unknown, 10/22/18) ASPIRIN (Verified Allergy, Unknown, 10/22/18) AZITHROMYCIN (Unverified Allergy, Unknown, 04/17/19) IBUPROFEN (Verified Allergy, Unknown, 10/22/18) NAPROXEN (Verified Allergy, Unknown, 10/22/18) Nursing Documentation-[facility] Past Medical History: No History, Except For Hx Hypertension: Yes Hx Pacemaker: No Hx Asthma: No Hx COPD: Yes Hx Diabetes: No Hx Cancer: No Hx Dialysis: No Hx Cerebrovascular Accident: No Hx Seizures: Yes Review of Systems All Other Systems: negative except mentioned in HPI Physical Exam Vital Signs Date Time Temp Pulse Resp B/P (MAP) Pulse Ox O2 Delivery O2 Flow Rate FiO2 04/17/19 07:12 98.4 86 16 140/80 (100) 96 Room Air Sp02 EP Interpretation: reviewed, normal General Appearance: no apparent distress - Chronically ill-appearing, alert, GCS 15 Head: normocephalic, atraumatic, other - Scattered alopecia of the scalp with white skin discoloration Eyes: bilateral eye normal inspection, bilateral eye PERRL ENT: hearing grossly normal, normal pharynx, no angioedema, normal voice Neck: full range of motion, supple/symm/no masses Respiratory: chest non-tender, no respiratory distress, no retraction, no accessory muscle use, wheezing - Scattered wheezes Cardiovascular #1: regular rate, rhythm, no edema Gastrointestinal: normal bowel sounds, non tender, soft, non-distended, no guarding, no rebound Rectal: deferred Genitourinary: no CVA tenderness Musculoskeletal: back normal, calf tenderness, non-tender Neurologic: alert, motor strength/tone normal, electronic science teacher III-XII nml as tested, oriented x3, sensory intact, responsive, speech normal Psychiatric: judgement/insight normal, memory normal, mood/affect normal, no suicidal/homicidal ideation Skin: other - Vitiligo of the face Lymphatic: no adenopathy Medical Decision Making Diagnostic Impression: Primary Impression: Chronic pain ER Course Patient declining any blood work or radiologic exams. Patient only requesting pain medicine. Patient given 2 mg of intramuscular Dilaudid. On reexamination she states that her pain has resolved. Her vital signs are stable. After discussing risks and benefits of further diagnostics, treatment plans, as well as indications for and risks of admission, the patient is agreeable to being discharged home. I have explained that their evaluation and treatment in the emergency department today is an important step towards them achieving better health but that their evaluation today is not intended to replace further evaluation and treatment by a physician in their local clinic. I have explained that while the current findings suggest no immediate life threatening emergency they will require further evaluation and treatment by a physician of their choice in their area. They understand that it will be necessary for them to review the final reports of their ED visit with their clinic physician. We have reviewed indications for return to the Emergency Department. I have explained that additional time may need to pass and/or additional testing as an outpatient may be necessary before a definitive diagnosis can be made. They tell me they are willing to follow up as instructed within the timeframe I recommend. They appear to understand what we discussed. Additionally they understand that if they are unable to be seen by an outpatient physician they are welcome, and in fact should, return to the Emergency Department for a repeat evaluation. The patient is stable at time of discharge. Last Vital Signs Date Time Temp Pulse Resp B/P (MAP) Pulse Ox O2 Delivery O2 Flow Rate FiO2 04/17/19 07:20 98.4 68 16 140/80 96 Room Air Disposition: HOME, SELF-CARE Condition: Stable Odilia Ocasio M.D. Apr 17, 2019 07:26
[2019-04-17] MEDS ORDERED: Albuterol ud Inhalation HHN ONE (07:30)
[2019-04-17] MEDS ORDERED: CARISOPRODOL350 MG ORAL (07:31)
[2019-04-17 07:52] VITALS: BP 136/78
--- NOTE | 2019-04-17 07:52 | NUR ---
ER DISCHARGE NOTE: Patient is cleared to be discharged per ERMD, pt is aox4, on room air, with stable vital signs. pt was given dc and prescription instructions, pt was able to verbalize understanding, pt id band removed. pt is able to ambulate with steady gait. pt took all belongings.
[2019-05-15] MEDS ORDERED: FAMOTIDINE20 MG ORAL (07:40)
== END 2019-04-17 07:52 | disposition home or self-care (01) ==
LOC: EDBD 07:21 → EMR 07:44
DX: G89.29 Other chronic pain (principal); I10 Essential (primary) hypertension; J44.9 Chronic obstructive pulmonary disease, unspecified; G40.909 Epilepsy, unspecified, not intractable, without status epilepticus; Z88.0 Allergy status to penicillin; Z88.1 Allergy status to other antibiotic agents; Z88.6 Allergy status to analgesic agent; Z88.8 Allergy status to other drugs, medicaments and biological substances
CPT/HCPCS: 96372; 99284; J1170

== ENCOUNTER 2019-04-27 03:27 | Emergency (ER) | payer MEDICARE, OTHER ==
[~2019-04-27] VITALS: Ht 177.8 cm; Wt 72.6 kg
[~2019-04-27 03:27] MED LIST changes: +CARISOPRODOL350 MG ORAL
[2019-04-27 03:35] VITALS: BP 176/82
--- NOTE | 2019-04-27 03:35 | NUR ---
ED Nurse Note: Pt brought into ED from home by MAIKEL NINO 26 for c/o SOB and wheezing. Pt also c/o R flank pain. Pt is aaox4, breathing is labored, no cardiac distress noted. Pt connected to cardiac monitor technician and placed in gown.
[2019-04-27] MEDS: Albuterol ud Inhalation HHN SCH ×3 (04:00→04:30)
[2019-04-27] MEDS: Ipratropium 0.02% Inh Soln 2.5ml UD HHN SCH ×3 (04:00→04:30)
[2019-04-27] MEDS ORDERED: HYDROmorphone 1mg/ml Carpuject IM ONE (04:00)
--- NOTE | 2019-04-27 04:40 | NUR ---
ED Nurse Note: SHAMAR bedside. Pt states she is feeling better now after breathing treatment.
[2019-04-27] MEDS ORDERED: ALBUTEROL SULF8.5 GM INH (04:49)
[2019-04-27] MEDS ORDERED: PROMETHAZINE-D118 ML ORAL (04:49)
[2019-04-27] MEDS ORDERED: PREDNISONE20 MG ORAL (04:49)
[2019-04-27] MEDS ORDERED: LEVAQUIN750 MG ORAL (04:49)
[2019-04-27 05:00] VITALS: BP 160/75
--- NOTE | 2019-04-27 05:00 | NUR ---
ER DISCHARGE NOTE: Patient is cleared to be discharged per ERMD, pt is aox4, on room air, with stable vital signs. pt was given dc and prescription instructions, pt was able to verbalize understanding, pt id band removed. pt is able to ambulate with steady gait with walker. pt took all belongings.
--- NOTE | 2019-04-27 06:11 | Emergency Room Report ---
History of Present Illness General Chief Complaint: Dyspnea/Respdistress Source: Patient Present Illness HPI 68-year-old female presents the ED for evaluation of shortness of breath. History of COPD. Brought from home with wheezing which started tonight. Given breathing treatments by EMS with minimal improvement. Notes history of COPD. Notes cough. Denies fevers or chills. Denies chest pain. Also notes history of lupus. Notes generalized pain. 8 out of 10, dull, nonradiating. No other aggravating relieving factors. Denies any other associated symptoms Allergies: Coded Allergies: KETOROLAC TROMETHAMINE (Verified Allergy, Severe, Anaphylaxis, 10/22/18) PENICILLINS (Verified Allergy, Severe, Anaphylaxis, 10/22/18) TETRACYCLINE (Verified Allergy, Severe, Anaphylaxis, 10/22/18) HALOPERIDOL (Verified Allergy, Intermediate, Anaphylaxis, 10/22/18) HALOPERIDOL LACTATE (Verified Allergy, Intermediate, Anaphylaxis, 10/22/18) ERYTHROMYCIN BASE (Verified Allergy, Mild, 10/22/18) AMPICILLIN (Verified Allergy, Unknown, 10/22/18) ASPIRIN (Verified Allergy, Unknown, 10/22/18) AZITHROMYCIN (Unverified Allergy, Unknown, 04/17/19) IBUPROFEN (Verified Allergy, Unknown, 10/22/18) NAPROXEN (Verified Allergy, Unknown, 10/22/18) Patient History Past Medical History: HTN, COPD, other - lupus Past Surgical History: none Pertinent Family History: none Social History: Denies: smoking, alcohol use, drug use Now: No Immunizations: UTD Reviewed Nursing Documentation: PMH: Agreed; PSxH: Agreed Nursing Documentation-PMH Hx Hypertension: Yes Hx Pacemaker: No Hx Asthma: No Hx COPD: Yes Hx Diabetes: No Hx Cancer: No Hx Dialysis: No Hx Cerebrovascular Accident: No Hx Seizures: Yes Review of Systems All Other Systems: negative except mentioned in HPI Physical Exam Vital Signs Date Time Temp Pulse Resp B/P (MAP) Pulse Ox O2 Delivery O2 Flow Rate FiO2 04/27/19 03:31 98.4 100 20 176/82 (113) 97 Room Air 04/27/19 04:01 21 Sp02 EP Interpretation: reviewed, normal General Appearance: no apparent distress, alert, GCS 15, non-toxic Head: normocephalic, atraumatic Eyes: bilateral eye normal inspection, bilateral eye PERRL ENT: hearing grossly normal, normal pharynx, no angioedema, normal voice Neck: full range of motion, supple/symm/no masses Respiratory: chest non-tender, decreased breath sounds, speaking full sentences , wheezing Cardiovascular #1: regular rate, rhythm, no edema Cardiovascular #2: 2+ carotid (R), 2+ carotid (L), 2+ radial (R), 2+ radial (L) , 2+ dorsalis pedis (R), 2+ dorsalis pedis (L) Gastrointestinal: normal bowel sounds, non tender, soft, non-distended, no guarding, no rebound Rectal: deferred Genitourinary: normal inspection, no CVA tenderness Musculoskeletal: back normal, normal range of motion, gait/station normal, non- tender Neurologic: alert, motor strength/tone normal, oriented x3, sensory intact, responsive, speech normal Psychiatric: judgement/insight normal, memory normal, mood/affect normal, no suicidal/homicidal ideation Reflexes: 3+ bicep (R), 3+ bicep (L), 3+ tricep (R), 3+ tricep (L), 3+ knee (R) , 3+ knee (L) Skin: other - malar rash to face Lymphatic: no adenopathy Medical Decision Making Diagnostic Impression: Primary Impression: COPD (chronic obstructive pulmonary disease) Qualified Codes: J44.9 - Chronic obstructive pulmonary disease, unspecified Additional Impression: Chronic pain Qualified Codes: G89.29 - Other chronic pain ER Course Hospital Course 68 yo F presents with SOB. wheezing. h/o COPD Differential diagnoses include: URI, bronchitis, asthma/COPD, pneumonia Clinical course Patient placed on stretcher. After initial history and physical I ordered pain meds, prednisone and nebulizer treatment. Upon reassessment patient states symptoms have improved. improved breath sounds bilaterally I discussed findings with patient. History of COPD we will discharge with antibiotics. I will prescribe inhaler and steroids. Safe for discharge for close outpatient follow-up. States she has a PMD Diagnosis - COPD, chronic pain Stable and discharged home with prescriptions for Rx albuterol, perdnisone, promethazine, levaquin. Instructed to followup with PMD. Return to ED if symptoms recur or worsen Last Vital Signs Date Time Temp Pulse Resp B/P (MAP) Pulse Ox O2 Delivery O2 Flow Rate FiO2 04/27/19 05:00 98.4 98 18 160/75 97 Room Air 21 Status: improved Disposition: HOME, SELF-CARE Condition: Stable Scripts D-Methorphan Hb/Prometh Hcl* (PROMETHAZINE-DM SYRUP*) 118 Ml Syrup 5 ML ORAL Q6H PRN for For Cough, #118 ML 0 Refills Prov: Stephen Win MD 04/27/19 Levofloxacin* (LEVAQUIN*) 750 Mg Tablet 750 MG ORAL DAILY for 5 Days, TAB Prov: Stephen Win MD 04/27/19 Prednisone* (PREDNISONE*) 20 Mg Tablet 40 MG ORAL DAILY, #10 TAB Prov: Stephen Win MD 04/27/19 Albuterol Sulfate* (ALBUTEROL SULFATE MDI*) 8.5 Gm Hfa.aer.ad 2 PUFF INH Q6H, #1 EA 0 Refills Prov: Stephen Win MD 04/27/19 Referrals: [facility],REFERRING (PCP) Patient Instructions: Chronic Obstructive Pulmonary Disease Exacerbation Stephen Win MD Apr 27, 2019 06:11
[2019-05-15] MEDS ORDERED: FAMOTIDINE20 MG ORAL (07:40)
== END 2019-04-27 05:05 | disposition home or self-care (01) ==
LOC: EDUNIT# 03:27 → EDBD 03:27 → EMR 03:44
DX: J44.9 Chronic obstructive pulmonary disease, unspecified (principal); G89.29 Other chronic pain; G40.909 Epilepsy, unspecified, not intractable, without status epilepticus; I10 Essential (primary) hypertension; Z88.0 Allergy status to penicillin; Z88.1 Allergy status to other antibiotic agents; Z88.6 Allergy status to analgesic agent; Z88.8 Allergy status to other drugs, medicaments and biological substances
CPT/HCPCS: 96372; 99283; J1170; J7512

== ENCOUNTER → 2019-05-15 | Emergency (ER) | payer MEDICARE, OTHER ==
[~2019-05-15] VITALS: Ht 170.2 cm; Wt 54.4 kg
[~2019-05-15] MED LIST changes: +DiphenhydrAMINE 25mg Tab ORAL ONE; +DiphenhydrAMINE 50mg/ml Inj IVP ONE; +FAMOTIDINE20 MG ORAL; +Ketamine HCl 50mg/ml 1ml Syr IM ONE; +Ketamine HCl 50mg/ml 1ml Syr IV ONE; +Metoclopramide 10mg/2ml Inj IM STA; +Metoclopramide 10mg/2ml Inj IVP ONE; +PROMETHAZINE-D118 ML ORAL
[2019-05-15 05:07] VITALS: BP 157/78
--- NOTE | 2019-05-15 05:34 | NUR ---
ED Nurse Note: X-ray tech at bedside.
[2019-05-15 06:00] LABS: BASOPHILS % (AUTO) 1.3 % (0.0-2.0); EOSINOPHILS % (AUTO) 1.5 % (0.0-3.0); HEMATOCRIT 39.8 % (37.0-47.0); HEMOGLOBIN 12.6 G/DL (12.0-16.0); LYMPHOCYTES % (AUTO) 31.2 % (20.0-45.0); MEAN CORPUSCULAR VOLUME 81 FL (80-99); MONOCYTES % (AUTO) 8.6 % (1.0-10.0); NEUTROPHILS % (AUTO) 57.4 % (45.0-75.0); PLATELET COUNT 239 K/UL (150-450); RED BLOOD COUNT 4.89 M/UL (4.20-5.40); RED CELL DISTRIBUTION WIDTH 16.9 % (11.6-14.8); WHITE BLOOD COUNT 6.5 K/UL (4.8-10.8)
--- NOTE | 2019-05-15 06:06 | Emergency Room Report ---
History of Present Illness General Chief Complaint: Abdominal Pain Source: Patient, EMS Present Illness HPI Patient presents with abdominal pain. She was discharged 3 days ago from [facility]. They were planning to do endoscopy and colonoscopy but then canceled. She says she has oxycodone at home for pain but the pain has been severe. It is epigastric and burning and radiating towards her neck and her back. She denies any fevers or chills. She rates the pain 8/10 and constant. She denies taking Pepcid or other proton blockers at this time. Patient with a history of lupus. The rashes have been stable. Patient uses a walker. Patient has chronic back pain. Patient's a month and a half ago. No fevers, chills, sore throat, chest pain, palpitations, diarrhea, dysuria, shortness of breath, visual changes, dizziness, headache. COVID-19 risk:Travel to affect: No Allergies: Coded Allergies: KETOROLAC TROMETHAMINE (Verified Allergy, Severe, Anaphylaxis, 10/22/18) PENICILLINS (Verified Allergy, Severe, Anaphylaxis, 10/22/18) TETRACYCLINE (Verified Allergy, Severe, Anaphylaxis, 10/22/18) HALOPERIDOL (Verified Allergy, Intermediate, Anaphylaxis, 10/22/18) HALOPERIDOL LACTATE (Verified Allergy, Intermediate, Anaphylaxis, 10/22/18) ERYTHROMYCIN BASE (Verified Allergy, Mild, 10/22/18) AMPICILLIN (Verified Allergy, Unknown, 10/22/18) ASPIRIN (Verified Allergy, Unknown, 10/22/18) AZITHROMYCIN (Unverified Allergy, Unknown, 04/17/19) IBUPROFEN (Verified Allergy, Unknown, 10/22/18) NAPROXEN (Verified Allergy, Unknown, 10/22/18) Patient History Past Medical History: see triage record, old chart reviewed Past Surgical History: other - Spinal surgery Social History: Denies: smoking Social History Narrative Recent lives at home Now: No Reviewed Nursing Documentation: PMH: Agreed; PSxH: Agreed Nursing Documentation-PMH Past Medical History: No History, Except For Hx Hypertension: Yes Hx Pacemaker: No Hx Asthma: No Hx COPD: Yes Hx Diabetes: No Hx Cancer: No Hx Dialysis: No Hx Cerebrovascular Accident: No Hx Seizures: Yes Review of Systems All Other Systems: negative except mentioned in HPI Physical Exam Vital Signs Date Time Temp Pulse Resp B/P (MAP) Pulse Ox O2 Delivery O2 Flow Rate FiO2 05/15/19 05:04 98.1 97 18 156/72 (100) Sp02 EP Interpretation: reviewed, normal General Appearance: no apparent distress, GCS 15, non-toxic, Chronically Ill Head: normocephalic, atraumatic Eyes: bilateral eye normal inspection, bilateral eye PERRL, bilateral eye EOMI ENT: moist mucus membranes Neck: full range of motion, supple Respiratory: lungs clear, normal breath sounds Cardiovascular #1: regular rate, rhythm Cardiovascular #2: 2+ radial (R) Gastrointestinal: normal inspection, normal bowel sounds, no mass, non- distended, no guarding, no rebound, tenderness - Diffuse Genitourinary: no CVA tenderness Musculoskeletal: back normal, normal range of motion, other - Walks with walker Neurologic: alert, oriented x3, grossly normal Psychiatric: anxious Skin: warm/dry, other - Malar rash and alopecia Medical Decision Making Diagnostic Impression: Primary Impression: Abdominal pain Qualified Codes: R10.13 - Epigastric pain Additional Impression: Lupus ER Course Patient with a history of lupus and recent hospitalization presents with abdominal pain. Differential includes gastritis, GERD, pancreatitis, acute myocardial infarction amongst others. Evaluation with EKG, chest x-ray, abdomen film and labs. Patient treated with IV hydration, Reglan, Benadryl and ketamine. Repeat exams indicated. EKG without injury, chest x-ray no infiltrates. Abdomen with nonspecific bowel gas pattern and injection granulomas. Labs with normal white count and CMP. Normal lipase. Urinalysis clear. Difficult IV access and medications administered IM. Patient not dehydrated. Patient sleeping after meds. Discussed treatment plan with patient. Discussed the need for outpatient follow -up. Patient requesting more analgesia. Discussed that she was sleeping and that she needed to follow-up with her own private physicians. Patient stable for outpatient observation and treatment. Laboratory Tests Test 05/15/19 05:44 White Blood Count 6.5 K/UL (4.8-10.8) Red Blood Count 4.89 M/UL (4.20-5.40) Hemoglobin 12.6 G/DL (12.0-16.0) Hematocrit 39.8 % (37.0-47.0) Mean Corpuscular Volume 81 FL (80-99) Mean Corpuscular Hemoglobin 25.7 PG (27.0-31.0) L Mean Corpuscular Hemoglobin Concent 31.6 G/DL (32.0-36.0) L Red Cell Distribution Width 16.9 % (11.6-14.8) H Platelet Count 239 K/UL (150-450) Mean Platelet Volume 6.9 FL (6.5-10.1) Neutrophils (%) (Auto) 57.4 % (45.0-75.0) Lymphocytes (%) (Auto) 31.2 % (20.0-45.0) Monocytes (%) (Auto) 8.6 % (1.0-10.0) Eosinophils (%) (Auto) 1.5 % (0.0-3.0) Basophils (%) (Auto) 1.3 % (0.0-2.0) Prothrombin Time 10.9 SEC (9.30-11.50) Prothrombin Time INR 1.0 (0.9-1.1) Activated Partial Thromboplast Time 20 SEC (23-33) L Urine Color Pale yellow Urine Appearance Clear Urine pH 6.5 (4.5-8.0) Urine Specific [place] 1.015 (1.005-1.035) Urine Protein Negative (NEGATIVE) Urine Glucose (UA) Negative (NEGATIVE) Urine Ketones Negative (NEGATIVE) Urine Blood Negative (NEGATIVE) Urine Nitrite Negative (NEGATIVE) Urine Bilirubin Negative (NEGATIVE) Urine Urobilinogen 1 MG/DL (0.0-1.0) H Urine Leukocyte Esterase Negative (NEGATIVE) Sodium Level 146 MMOL/L (136-145) H Potassium Level 4.3 MMOL/L (3.5-5.1) Chloride Level 112 MMOL/L (98-107) H Carbon Dioxide Level 19 MMOL/L (21-32) L Anion Gap 15 mmol/L (5-15) Blood Urea Nitrogen 26 mg/dL (7-18) H Creatinine 0.7 MG/DL (0.55-1.30) Estimated Glomerular Filtration Rate > 60 mL/min (>60) Glucose Level 79 MG/DL (74-106) Calcium Level 8.8 MG/DL (8.5-10.1) Magnesium Level 2.3 MG/DL (1.8-2.4) Total Bilirubin 0.2 MG/DL (0.2-1.0) Aspartate Amino Transferase (AST) 18 U/L (15-37) Alanine Aminotransferase (ALT) 26 U/L (12-78) Alkaline Phosphatase 93 U/L (46-116) Troponin I 0.018 ng/mL (0.000-0.056) Total Protein 6.4 G/DL (6.4-8.2) Albumin 3.3 G/DL (3.4-5.0) L Globulin 3.1 g/dL Albumin/Globulin Ratio 1.1 (1.0-2.7) Lipase 225 U/L (73-393) Urine Opiates Screen Positive (NEGATIVE) H Urine Barbiturates Screen Negative (NEGATIVE) Phencyclidine (PCP) Screen Negative (NEGATIVE) Urine Amphetamines Screen Negative (NEGATIVE) Urine Benzodiazepines Screen Negative (NEGATIVE) Urine Cocaine Screen Negative (NEGATIVE) Urine Marijuana (THC) Screen Negative (NEGATIVE) EKG Diagnostic Results Rate: normal Rhythm: NSR ST Segments: no acute changes Rhythm Strip Diag. Results EP Interpretation: yes Rhythm: NSR, other - PVC rare, rate 93 Chest X-Ray Diagnostic Results Chest X-Ray Diagnostic Results : Chest X-Ray Ordered: Yes # of Views/Limited/Complete: 1 View Indication: Other EP Interpretation: Yes Interpretation: no consolidation, no effusion, no pneumothorax, other - copd Impression: No acute disease Electronically Signed by: Electronically signed by Karl Guan MD Other X-Ray Diagnostic Results Other X-Ray Diagnostic Results : X-Ray ordered: abd # of Views/Limited Vs Complete: 2 View Indication: Pain EP Interpretation: Yes Interpretation: nonspecific bowel gas, no sbo, other - injection calcifications Impression: Other Electronically Signed by: Electronically signed by Karl Guan MD Last Vital Signs Date Time Temp Pulse Resp B/P (MAP) Pulse Ox O2 Delivery O2 Flow Rate FiO2 05/15/19 05:07 92 20 05/15/19 05:07 98.4 157/78 98 Status: improved Disposition: HOME, SELF-CARE Condition: Improved Scripts Famotidine* (Pepcid 20mg tablet*) 20 Mg Tablet 20 MG ORAL DAILY, #20 TAB 1 Refill Prov: Karl Guan MD 05/15/19 Referrals: [facility],REFERRING (PCP) Karl Guan MD May 15, 2019 06:06
--- NOTE | 2019-05-15 06:35 | NUR ---
ED Nurse Note: Blood and urine sent to lab. No IV site. Pt is cooperative yet difficult to cannulate.
[2019-05-15 06:45] LABS: APPEARANCE,URINE CLEAR; BILIRUBIN, URINE NEGATIVE (NEGATIVE); COLOR,URINE PALE YELLOW; GLUCOSE, URINE (UA) NEGATIVE (NEGATIVE); KETONES,URINE NEGATIVE (NEGATIVE); LEUKOCYTE ESTERASE ,URINE NEGATIVE (NEGATIVE); NITRITE,URINE NEGATIVE (NEGATIVE); PH,URINE 6.5 (4.5-8.0); PROTEIN,URINE NEGATIVE (NEGATIVE); UROBILINOGEN,URINE 1 MG/DL (0.0-1.0)
[2019-05-15 07:45] LABS: ANION GAP 15 mmol/L (5-15); BLOOD UREA NITROGEN 26 mg/dL (7-18); CALCIUM 8.8 MG/DL (8.5-10.1); CARBON DIOXIDE 19 MMOL/L (21-32); CHLORIDE 112 MMOL/L (98-107); CREATININE 0.7 MG/DL (0.55-1.30); POTASSIUM 4.3 MMOL/L (3.5-5.1); SODIUM 146 MMOL/L (136-145)
[2019-05-15 07:49] LABS: ALANINE AMINOTRANSFERASE 26 U/L (12-78); ALBUMIN 3.3 G/DL (3.4-5.0); ALBUMIN/GLOBULIN RATIO 1.1 (1.0-2.7); ALKALINE PHOSPHATASE 93 U/L (46-116); ASPARTATE AMINO TRANSFERASE 18 U/L (15-37); BILIRUBIN,TOTAL 0.2 MG/DL (0.2-1.0)
--- NOTE | 2019-05-15 13:59 | Diagnostic Imaging Report ---
Indication: Dyspnea Comparison: 02/22/2019 A single view chest radiograph was obtained. Findings: Bullous changes noted in the right upper lobe. There is generalized hyperinflation and generalized hyperlucency especially in the upper lobes. Findings consistent with emphysema and COPD. The heart is enlarged. Aorta is calcified. Bones are osteopenic. IMPRESSION: Emphysema/COPD. No change compared to the previous study
--- NOTE | 2019-05-15 14:00 | Diagnostic Imaging Report ---
Indication: Abdominal pain Comparison: 05/19/2018 Single view of the abdomen obtained Findings: Bones are osteopenic. Bowel gas pattern is nonobstructive. There are cholecystectomy clips in the right upper quadrant abdomen. Calcifications noted at the left lung base likely pleural in nature. Other calcifications projected over the pelvis may be soft tissue in nature. IMPRESSION: No acute findings
== END | disposition home or self-care (01) ==
LOC: EMR 05:01
DX: R10.13 Epigastric pain (principal); M32.9 Systemic lupus erythematosus, unspecified; Z88.0 Allergy status to penicillin; Z88.6 Allergy status to analgesic agent; Z88.8 Allergy status to other drugs, medicaments and biological substances; I10 Essential (primary) hypertension; J44.9 Chronic obstructive pulmonary disease, unspecified
CPT/HCPCS: 36415; 71045; 74018; 80053; 80307; 81003; 83690; 83735; 84484; 85025; 85610; 85730; 93005; 96361; 96372; 96374; 96375; 99284; J1200; J2765; J7030

== ENCOUNTER 2019-05-17 08:16 | Emergency (ER) | payer MEDICARE, OTHER ==
[~2019-05-17] VITALS: Ht 160 cm; Wt 52.2 kg
[2019-05-17 08:13] VITALS: BP 142/68
[~2019-05-17 08:16] MED LIST changes: -DiphenhydrAMINE 25mg Tab ORAL ONE; -DiphenhydrAMINE 50mg/ml Inj IVP ONE; -Ketamine HCl 50mg/ml 1ml Syr IM ONE; -Ketamine HCl 50mg/ml 1ml Syr IV ONE; -Metoclopramide 10mg/2ml Inj IM STA; -Metoclopramide 10mg/2ml Inj IVP ONE
[2019-05-17] MEDS ORDERED: ALBUTEROL SULF8.5 GM INH (08:29)
[2019-05-17] MEDS ORDERED: PREDNISONE20 MG ORAL (08:29)
[2019-05-17] MEDS ORDERED: Morphine Sulfate 2mg/ml Inj(IV/IM USE ONLY) IM ONE (08:30)
[2019-05-17 08:40] VITALS: BP 139/72
--- NOTE | 2019-05-17 09:01 | Emergency Room Report ---
History of Present Illness General Chief Complaint: Pain Source: Patient, Medical Record, EMS Present Illness HPI 68-year-old female presents with generalized pain. Brought in by EMS from home. Pain x1 day. Dull, 9 out of 10, nonradiating. History of lupus. States that the cold weather is triggering her lupus flare. Denies any runny nose cough or congestion. Denies shortness of breath or wheezing. Denies fevers or chills. Denies sick contacts or recent travel. States that she was tested for coronavirus at another hospital 1 week ago and was told she was negative. No other aggravating relieving factors. Denies any other associated symptoms COVID-19 risk:Contact w/high r: No COVID-19 risk:Travel to affect: No Has patient experienced vega: No Allergies: Coded Allergies: KETOROLAC TROMETHAMINE (Verified Allergy, Severe, Anaphylaxis, 10/22/18) PENICILLINS (Verified Allergy, Severe, Anaphylaxis, 10/22/18) TETRACYCLINE (Verified Allergy, Severe, Anaphylaxis, 10/22/18) HALOPERIDOL (Verified Allergy, Intermediate, Anaphylaxis, 10/22/18) HALOPERIDOL LACTATE (Verified Allergy, Intermediate, Anaphylaxis, 10/22/18) ERYTHROMYCIN BASE (Verified Allergy, Mild, 10/22/18) AMPICILLIN (Verified Allergy, Unknown, 10/22/18) ASPIRIN (Verified Allergy, Unknown, 10/22/18) AZITHROMYCIN (Unverified Allergy, Unknown, 04/17/19) IBUPROFEN (Verified Allergy, Unknown, 10/22/18) NAPROXEN (Verified Allergy, Unknown, 10/22/18) Patient History Past Medical History: COPD, other - SLE Past Surgical History: none Pertinent Family History: none Social History: Denies: smoking, alcohol use, drug use Now: No Immunizations: UTD Reviewed Nursing Documentation: PMH: Agreed; PSxH: Agreed Nursing Documentation-PMH Hx Hypertension: Yes Hx Pacemaker: No Hx Asthma: No Hx COPD: Yes Hx Diabetes: No Hx Cancer: No Hx Dialysis: No Hx Cerebrovascular Accident: No Hx Seizures: Yes Review of Systems All Other Systems: negative except mentioned in HPI Physical Exam Vital Signs Date Time Temp Pulse Resp B/P (MAP) Pulse Ox O2 Delivery O2 Flow Rate FiO2 05/17/19 08:02 99.3 80 18 142/68 (92) 97 Room Air Sp02 EP Interpretation: reviewed, normal General Appearance: no apparent distress, alert, GCS 15, non-toxic Head: normocephalic, atraumatic Eyes: bilateral eye normal inspection, bilateral eye PERRL ENT: hearing grossly normal, normal pharynx, no angioedema, normal voice Neck: full range of motion, supple/symm/no masses Respiratory: chest non-tender, lungs clear, normal breath sounds, speaking full sentences Cardiovascular #1: regular rate, rhythm, no edema Cardiovascular #2: 2+ carotid (R), 2+ carotid (L), 2+ radial (R), 2+ radial (L) , 2+ dorsalis pedis (R), 2+ dorsalis pedis (L) Gastrointestinal: normal bowel sounds, non tender, soft, non-distended, no guarding, no rebound Rectal: deferred Genitourinary: normal inspection, no CVA tenderness Musculoskeletal: back normal, normal range of motion, gait/station normal, non- tender Neurologic: alert, motor strength/tone normal, oriented x3, sensory intact, responsive, speech normal Psychiatric: judgement/insight normal, memory normal, mood/affect normal, no suicidal/homicidal ideation Reflexes: 3+ bicep (R), 3+ bicep (L), 3+ tricep (R), 3+ tricep (L), 3+ knee (R) , 3+ knee (L) Skin: other - malar rash. diffuse hypopigmentation to body Lymphatic: no adenopathy Medical Decision Making Diagnostic Impression: Primary Impression: Chronic pain Qualified Codes: G89.29 - Other chronic pain Additional Impression: Exacerbation of systemic lupus ER Course 68 yo F presents with bodyaches. h/o lupus Differential-viral syndrome, lupus, chronic pain Patient placed on stretcher. After initial history, physical exam reveals elderly female in no acute distress. Lungs clear. Remainder of exam unremarkable. Is well-known to [facility]. Has been here multiple times. I agreed to provide her with a 1 pain injection. Given prednisone. Patient placed in isolation initially as she documented history of being tested for coronavirus. Has no fever. No productive cough. No congestion or runny nose. We maintained PPE precautions however patient is likely low risk at this time. I did instruct to patient that coronavirus test is not 100% sensitive and there is still a possibility she could have it. Again encouraged self- isolation. Patient states she understands. Safe for discharge and close outpatient follow-up. States she has a PMD Diagnoses- chronic pain, exacerbation of systemic lupus Stable and discharged to home with prednisone. Followup with PMD. Return to ED if symptoms recur or worsen Last Vital Signs Date Time Temp Pulse Resp B/P (MAP) Pulse Ox O2 Delivery O2 Flow Rate FiO2 05/17/19 08:40 99.2 84 18 139/72 98 Room Air Status: improved Disposition: HOME, SELF-CARE Condition: Stable Scripts Prednisone* (PREDNISONE*) 20 Mg Tablet 40 MG ORAL DAILY, #10 TAB Prov: Stephen Win MD 05/17/19 Albuterol Sulfate* (ALBUTEROL SULFATE MDI*) 8.5 Gm Hfa.aer.ad 2 PUFF INH Q6H, #1 EA 0 Refills Prov: Stephen Win MD 05/17/19 Referrals: NOT [facility]OS[facility]/,REFERRING (PCP) [facility] Patient Instructions: Chronic Pain Additional Instructions: there is a coronavirus pandemic. self-isolate for 14 days. Stephen Win MD May 17, 2019 09:01
== END 2019-05-17 09:00 | disposition home or self-care (01) ==
LOC: EDBD 08:16 → EDSEX 08:16 → EMR 08:48
DX: G89.29 Other chronic pain (principal); M32.9 Systemic lupus erythematosus, unspecified; I10 Essential (primary) hypertension; J44.9 Chronic obstructive pulmonary disease, unspecified; G40.909 Epilepsy, unspecified, not intractable, without status epilepticus; Z88.0 Allergy status to penicillin; Z88.1 Allergy status to other antibiotic agents
CPT/HCPCS: 96372; 99283; J2270; J7512

== ENCOUNTER 2019-05-21 15:27 | Emergency (ER) | payer MEDICARE, OTHER ==
[~2019-05-21] VITALS: Ht 170.2 cm; Wt 54.4 kg
--- NOTE | 2019-05-21 15:50 | NUR ---
ED Nurse Note: Pt brought in by ambulance to ED for abdominal pain 9/10 since last night. Pt has nausea but no vomiting. Pt is alert and orientedx4, ambulatory. Pt is set up on monitor. Pt has hx of COPD, lupus. Pt also states she has body aches.
--- NOTE | 2019-05-21 15:55 | NUR ---
ED Nurse Note: Dr Win notified pt temp 100.6F oral and pt has body aches and chills.
[2019-05-21 15:57] VITALS: BP 150/93
[2019-05-21] MEDS ORDERED: Morphine Sulfate 2mg/ml Inj(IV/IM USE ONLY) IM ONE (16:15)
[2019-05-21] MEDS ORDERED: Mylanta II UD 30ml ORAL ONE (16:15)
[2019-05-21] MEDS ORDERED: Lidocaine 2% Visc 15ml soln ORAL ONE (16:15)
[2019-05-21] MEDS ORDERED: Dicyclomine HCl 10mg/5ml oral soln ORAL ONE (16:15)
[2019-05-21] MEDS ORDERED: Albuterol/Ipratropium 3ml neb HHN ONE (16:15)
--- NOTE | 2019-05-21 16:15 | Emergency Room Report ---
History of Present Illness General Chief Complaint: Abdominal Pain Source: Patient Present Illness HPI 68-year-old female presents ED for evaluation. Brought in by EMS from home for abdominal pain. Pain is epigastric. Sharp, 8 out of 10, nonradiating. States she is been having this pain for several weeks now. States that she recently had a endoscopy and colonoscopy done at [facility] [place] for this. Is waiting for her results. Denies pain she has a cough. History of COPD. Cough is productive with yellowish phlegm. Temp 100.6 in triage. Denies sick contacts or recent travel. No other aggravating relieving factors. Denies any other associated symptoms Allergies: Coded Allergies: KETOROLAC TROMETHAMINE (Verified Allergy, Severe, Anaphylaxis, 10/22/18) PENICILLINS (Verified Allergy, Severe, Anaphylaxis, 10/22/18) TETRACYCLINE (Verified Allergy, Severe, Anaphylaxis, 10/22/18) HALOPERIDOL (Verified Allergy, Intermediate, Anaphylaxis, 10/22/18) HALOPERIDOL LACTATE (Verified Allergy, Intermediate, Anaphylaxis, 10/22/18) ERYTHROMYCIN BASE (Verified Allergy, Mild, 10/22/18) AMPICILLIN (Verified Allergy, Unknown, 10/22/18) ASPIRIN (Verified Allergy, Unknown, 10/22/18) AZITHROMYCIN (Unverified Allergy, Unknown, 04/17/19) IBUPROFEN (Verified Allergy, Unknown, 10/22/18) NAPROXEN (Verified Allergy, Unknown, 10/22/18) COVID-19 Screening Contact w/high risk pt: No Recent Travel to affected area: No Experienced COVID-19 symptoms?: No Patient History Past Medical History: HTN, COPD Past Surgical History: none Pertinent Family History: none Social History: Denies: smoking, alcohol use, drug use Now: No Immunizations: UTD Reviewed Nursing Documentation: PMH: Agreed; PSxH: Agreed Nursing Documentation-PMH Hx Hypertension: Yes Hx Pacemaker: No Hx Asthma: No Hx COPD: Yes Hx Diabetes: No Hx Cancer: No Hx Dialysis: No Hx Cerebrovascular Accident: No Hx Seizures: Yes Review of Systems All Other Systems: negative except mentioned in HPI Physical Exam Vital Signs Date Time Temp Pulse Resp B/P (MAP) Pulse Ox O2 Delivery O2 Flow Rate FiO2 05/21/19 15:29 98.2 105 18 178/83 (114) 95 05/21/19 15:57 Room Air 94 Sp02 EP Interpretation: reviewed, normal General Appearance: no apparent distress, alert, GCS 15, non-toxic Head: normocephalic, atraumatic Eyes: bilateral eye normal inspection, bilateral eye PERRL ENT: hearing grossly normal, normal pharynx, no angioedema, normal voice Neck: full range of motion, supple/symm/no masses Respiratory: chest non-tender, speaking full sentences, wheezing Cardiovascular #1: regular rate, rhythm, no edema Cardiovascular #2: 2+ carotid (R), 2+ carotid (L), 2+ radial (R), 2+ radial (L) , 2+ dorsalis pedis (R), 2+ dorsalis pedis (L) Gastrointestinal: normal bowel sounds, soft, non-distended, no guarding, no rebound, tenderness - EPIGASTRIC Rectal: deferred Genitourinary: normal inspection, no CVA tenderness Musculoskeletal: back normal, normal range of motion, gait/station normal, non- tender Neurologic: alert, motor strength/tone normal, oriented x3, sensory intact, responsive, speech normal Psychiatric: judgement/insight normal, memory normal, mood/affect normal, no suicidal/homicidal ideation Reflexes: 3+ bicep (R), 3+ bicep (L), 3+ tricep (R), 3+ tricep (L), 3+ knee (R) , 3+ knee (L) Skin: no rash Lymphatic: no adenopathy Medical Decision Making Diagnostic Impression: Primary Impression: COPD bronchitis Additional Impression: Abdominal pain Qualified Codes: R10.13 - Epigastric pain ER Course Hospital Course 68 yo F presents with cough, fever. abd pain. h/o COPD. Differential diagnoses include: URI, bronchitis, asthma/COPD, pneumonia Clinical course Patient placed in isolation room. I wore full PPE.. After initial history, physical exam reveals an elderly female in no acute distress. Bilateral TM unremarkable. No pharyngeal erythema. No tonsillar exudates. No lymphadenopathy. Mild wheezing noted on exam, no signs of respiratory distress or retractions. There is some epigastric pain on exam. No guarding or rebound. Patient was seen here recently for abdominal pain. This is a chronic finding. No signs of peritonitis. She declined any lab draw or CT imaging. States that she wants to control her pain until she can follow-up with her GI doctor regarding her endoscopy and colonoscopy results. Patient given breathing treatment. Given prednisone. Given pain meds. I discussed findings with patient. Patient states she feels better. I discussed concern for coronavirus. Patient recommended to self isolate for 14 days. Will prescribe antibiotics. Safe for discharge for close outpatient follow-up Diagnosis - COPD bronchitis, abdominal pain Stable and discharged home with prescriptions for levaquin, prednisone, albuterol, pepcid. self-isolate for 14 days. Instructed to followup with PMD/ GI. Return to ED if symptoms recur or worsen Last Vital Signs Date Time Temp Pulse Resp B/P (MAP) Pulse Ox O2 Delivery O2 Flow Rate FiO2 05/21/19 15:57 105 18 Room Air 94 05/21/19 15:57 100.6 150/93 94 Status: improved Disposition: HOME, SELF-CARE Condition: Stable Scripts Albuterol Sulfate* (ALBUTEROL SULFATE MDI*) 8.5 Gm Hfa.aer.ad 2 PUFF INH Q6H, #1 EA 0 Refills Prov: Stephen Win MD 05/21/19 Prednisone* (PREDNISONE*) 20 Mg Tablet 40 MG ORAL DAILY, #10 TAB Prov: Stephen Win MD 05/21/19 Famotidine* (Pepcid 20mg tablet*) 20 Mg Tablet 20 MG ORAL DAILY, #30 TAB 0 Refills Prov: Stephen Win MD 05/21/19 Levofloxacin* (LEVAQUIN*) 750 Mg Tablet 750 MG ORAL DAILY for 5 Days, TAB Prov: Stephen Win MD 05/21/19 Referrals: NOT CHOSEN [facility]/,REFERRING (PCP) Stephen Win MD May 21, 2019 16:15
[2019-05-21] MEDS ORDERED: FAMOTIDINE20 MG ORAL (16:56)
[2019-05-21] MEDS ORDERED: ALBUTEROL SULF8.5 GM INH (16:56)
[2019-05-21] MEDS ORDERED: PREDNISONE20 MG ORAL (16:56)
[2019-05-21] MEDS ORDERED: LEVAQUIN750 MG ORAL (16:56)
[2019-05-21 17:30] VITALS: BP 145/91
== END 2019-05-21 17:30 | disposition home or self-care (01) ==
LOC: EDBD 15:27 → EMR 15:45
DX: R10.13 Epigastric pain (principal); J44.9 Chronic obstructive pulmonary disease, unspecified; J20.9 Acute bronchitis, unspecified; R50.9 Fever, unspecified; I10 Essential (primary) hypertension; G40.909 Epilepsy, unspecified, not intractable, without status epilepticus
CPT/HCPCS: 96372; 99284; J2270; J7512; J7620

== ENCOUNTER 2019-06-07 13:27 | Emergency (ER) | payer MEDICARE, OTHER ==
[~2019-06-07] VITALS: Ht 165.1 cm; Wt 59.0 kg
[2019-06-07 14:00] VITALS: BP 154/76
--- NOTE | 2019-06-07 14:00 | NUR ---
ED Nurse Note: Pt came into ED for c/o abdominal pain lower abdomen for 4 days. Pt has nausea, no vomiting. Pt als states she has had diarrhea for the past 3 days. Pt is alert and oriented, amb with walker. Pt is set up on the monitor.
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
--- NOTE | 2019-06-07 15:03 | Diagnostic Imaging Report ---
Indication: Cough Technique: One view of the chest Comparison: 05/15/2019 Findings: The heart is mildly enlarged. The aorta is tortuous ectatic and calcified. There is right upper lobe hyperinflation. There is central bronchial wall thickening. There are equivocal reticular markings at both lung bases which are probably exaggerated by relative slight underexposure on current study. No focal airspace consolidations. No effusions. Impression: Borderline cardiomegaly Evidence of COPD Equivocal basilar increased reticular markings, suspect chronic but if real could indicate mild inflammatory changes or mild edema
[2019-06-07 15:07] LABS: BASOPHILS % (AUTO) 1.7 % (0.0-2.0); EOSINOPHILS % (AUTO) 0.6 % (0.0-3.0); HEMATOCRIT 38.9 % (37.0-47.0); HEMOGLOBIN 12.3 G/DL (12.0-16.0); MEAN CORPUSCULAR VOLUME 81 FL (80-99); MONOCYTES % (AUTO) 13.6 % (1.0-10.0); NEUTROPHILS % (AUTO) 47.1 % (45.0-75.0); PLATELET COUNT 337 K/UL (150-450); RED CELL DISTRIBUTION WIDTH 17.7 % (11.6-14.8); WHITE BLOOD COUNT 3.9 K/UL (4.8-10.8)
[2019-06-07 15:21] LABS: ANION GAP 11 mmol/L (5-15); BLOOD UREA NITROGEN 10 mg/dL (7-18); CARBON DIOXIDE 27 MMOL/L (21-32); CHLORIDE 107 MMOL/L (98-107); CREATININE 0.7 MG/DL (0.55-1.30); POTASSIUM 3.2 MMOL/L (3.5-5.1); SODIUM 145 MMOL/L (136-145)
[2019-06-07 15:25] LABS: ALANINE AMINOTRANSFERASE 31 U/L (12-78); ALBUMIN 3.4 G/DL (3.4-5.0); ALBUMIN/GLOBULIN RATIO 0.9 (1.0-2.7); ALKALINE PHOSPHATASE 128 U/L (46-116); ASPARTATE AMINO TRANSFERASE 25 U/L (15-37); BILIRUBIN,TOTAL 0.6 MG/DL (0.2-1.0)
[2019-06-07] MEDS ORDERED: Omnipaque-300 100ml vial INJ PRN (15:45)
[2019-06-07] MEDS ORDERED: Ketorolac 30mg Inj IM ONE (15:45)
[2019-06-07] MEDS ORDERED: VENTOLIN HFA18 GM INH (15:45)
[2019-06-07] MEDS ORDERED: GUAIFENESI100 MG/5 M ORAL (15:45)
[2019-06-07] MEDS ORDERED: FAMOTIDINE20 MG ORAL (15:45)
[2019-06-07 16:17] LABS: APPEARANCE,URINE CLEAR; BILIRUBIN, URINE NEGATIVE (NEGATIVE); GLUCOSE, URINE (UA) NEGATIVE (NEGATIVE); KETONES,URINE NEGATIVE (NEGATIVE); LEUKOCYTE ESTERASE ,URINE NEGATIVE (NEGATIVE); NITRITE,URINE NEGATIVE (NEGATIVE); PH,URINE 7 (4.5-8.0); PROTEIN,URINE NEGATIVE (NEGATIVE); UROBILINOGEN,URINE NORMAL MG/DL (0.0-1.0)
[2019-06-07 16:20] VITALS: BP 145/72
[2019-06-07 16:20] LABS: COLOR,URINE YELLOW
--- NOTE | 2019-06-07 16:20 | NUR ---
ER DISCHARGE NOTE: Patient is cleared to be discharged per ERMD, pt is aox4, on room air, with stable vital signs. pt was given dc and prescription instructions, pt was able to verbalize understanding, pt id band and iv site removed without complications. pt is able to ambulate with steady gait. pt took all belongings. Pt educated regarding ab pain.
== END 2019-06-07 16:20 | disposition home or self-care (01) ==
LOC: EDBD 13:27 → EMR 13:50
DX: R10.9 Unspecified abdominal pain (principal); G89.29 Other chronic pain; J44.9 Chronic obstructive pulmonary disease, unspecified; Z88.0 Allergy status to penicillin; Z88.6 Allergy status to analgesic agent; R05 Cough; I10 Essential (primary) hypertension
CPT/HCPCS: 36415; 71045; 80053; 80307; 81003; 83690; 85025; 86710; 96372; 99284; J1885

== ENCOUNTER 2019-06-19 09:44 | Emergency (ER) | payer MEDICARE, OTHER ==
[~2019-06-19] VITALS: Ht 162.6 cm; Wt 54.4 kg
[~2019-06-19 09:44] MED LIST changes: +GUAIFENESI100 MG/5 M ORAL
[2019-06-19 09:45] VITALS: BP 168/87
--- NOTE | 2019-06-19 09:45 | NUR ---
ED Nurse Note: Pt brought in by ambulance from home d/t non productive coughing and CP x 3 hours and SOB x 3 days. Pt was at [facility] a week ago and was covid negative. Respirations even and unlabored on room air. Vitals stable as documented.
[2019-06-19] MEDS ORDERED: Solu-MEDROL 125mg Inj IVP ONE (10:15)
[2019-06-19] MEDS ORDERED: Albuterol/Ipratropium 3ml neb HHN ONE (10:15)
[2019-06-19] MEDS ORDERED: Morphine Sulfate 4mg/ml Inj (IV USE ONLY) IVP ONE (10:15)
--- NOTE | 2019-06-19 10:23 | Emergency Room Report ---
History of Present Illness General Chief Complaint: Chest Pain Source: Patient Present Illness HPI 68-year-old female presents for shortness of breath and chest pain. Started today. Right-sided, dull, 9 out of 10, nonradiating. Also notes a cough which is dry. Denies fevers or chills. History of COPD. History of lupus. Patient states she was recently hospitalized at [facility] for COPD exacerbation. States she tested negative for COVID. No other aggravating relieving factors. Denies any other associated symptoms Allergies: Coded Allergies: KETOROLAC TROMETHAMINE (Verified Allergy, Severe, Anaphylaxis, 10/22/18) PENICILLINS (Verified Allergy, Severe, Anaphylaxis, 10/22/18) TETRACYCLINE (Verified Allergy, Severe, Anaphylaxis, 10/22/18) HALOPERIDOL (Verified Allergy, Intermediate, Anaphylaxis, 10/22/18) HALOPERIDOL LACTATE (Verified Allergy, Intermediate, Anaphylaxis, 10/22/18) ERYTHROMYCIN BASE (Verified Allergy, Mild, 10/22/18) AMPICILLIN (Verified Allergy, Unknown, 10/22/18) ASPIRIN (Verified Allergy, Unknown, 10/22/18) AZITHROMYCIN (Unverified Allergy, Unknown, 04/17/19) IBUPROFEN (Verified Allergy, Unknown, 10/22/18) NAPROXEN (Verified Allergy, Unknown, 10/22/18) TETRACYCLINES (Unverified Allergy, Unknown, 06/19/19) COVID-19 Screening Contact w/high risk pt: No Recent Travel to affected area: No Experienced COVID-19 symptoms?: Yes COVID-19 symptoms experienced: Shortness of Breath, Cough Patient History Past Medical History: HTN, COPD, other - lupus Past Surgical History: none Pertinent Family History: none Social History: Denies: smoking, alcohol use, drug use Now: No Immunizations: UTD Reviewed Nursing Documentation: PMH: Agreed; PSxH: Agreed Nursing Documentation-PMH Past Medical History: No History, Except For Hx Hypertension: Yes Hx Pacemaker: No Hx Asthma: No Hx COPD: Yes Hx Diabetes: No Hx Cancer: No Hx Dialysis: No Hx Cerebrovascular Accident: No Hx Seizures: Yes Review of Systems All Other Systems: negative except mentioned in HPI Physical Exam Vital Signs Date Time Temp Pulse Resp B/P (MAP) Pulse Ox O2 Delivery O2 Flow Rate FiO2 06/19/19 09:39 97.3 95 16 175/89 (117) 97 Room Air Sp02 EP Interpretation: reviewed, normal General Appearance: no apparent distress, alert, GCS 15, non-toxic Head: normocephalic, atraumatic Eyes: bilateral eye normal inspection, bilateral eye PERRL ENT: hearing grossly normal, normal pharynx, no angioedema, normal voice Neck: full range of motion, supple/symm/no masses Respiratory: chest non-tender, decreased breath sounds, speaking full sentences , wheezing Cardiovascular #1: regular rate, rhythm, no edema Cardiovascular #2: 2+ carotid (R), 2+ carotid (L), 2+ radial (R), 2+ radial (L) , 2+ dorsalis pedis (R), 2+ dorsalis pedis (L) Gastrointestinal: normal bowel sounds, non tender, soft, non-distended, no guarding, no rebound Rectal: deferred Genitourinary: normal inspection, no CVA tenderness Musculoskeletal: back normal, normal range of motion, gait/station normal, non- tender Neurologic: alert, motor strength/tone normal, oriented x3, sensory intact, responsive, speech normal Psychiatric: judgement/insight normal, memory normal, mood/affect normal, no suicidal/homicidal ideation Reflexes: 3+ bicep (R), 3+ bicep (L), 3+ tricep (R), 3+ tricep (L), 3+ knee (R) , 3+ knee (L) Skin: other - malar butterfly rash to face Lymphatic: no adenopathy Medical Decision Making Diagnostic Impression: Primary Impression: COPD (chronic obstructive pulmonary disease) Qualified Codes: J44.9 - Chronic obstructive pulmonary disease, unspecified Additional Impressions: Chronic pain Qualified Codes: G89.29 - Other chronic pain Exacerbation of systemic lupus ER Course Hospital Course 68-year-old female presents to ED complaining of cough, cp, generalized pain Differential diagnoses include: URI, bronchitis, asthma/COPD, pneumonia Clinical course Patient placed on stretcher. After initial history, physical exam reveals an elderly female in no acute distress. Bilateral TM unremarkable. No pharyngeal erythema. No tonsillar exudates. No lymphadenopathy. wheezing noted I ordered labs, IV fluids, morphine, solumedrol nebs, chest x-ray. EKG - NSR, no acute ischemic changes interpreted by me CXR - hyperinflated lungs. R base atelectasis Labs reviewed- no leukocytosis noted, hemoglobin/hematocrit stable, electrolytes okay, trop negative Well-known to [facility]. Improved after breathing treatment and pain meds. History of opioid dependence. History of lupus. No fever. Vitals stable. Patient tested negative for COVID at [facility] last week. Will discharge home with prescription for steroids, inhaler, antibiotics. States that she has follow-up with a respiratory manager. Diagnosis - COPD, chronic pain, exacerbation of lupus Stable and discharged home with prescriptions for prednisone, albuterol, Levaquin. Instructed to followup with PMD. Return to ED if symptoms recur or worsen Labs Test 06/19/19 10:20 White Blood Count 6.2 K/UL (4.8-10.8) Red Blood Count 4.60 M/UL (4.20-5.40) Hemoglobin 11.8 G/DL (12.0-16.0) Hematocrit 37.5 % (37.0-47.0) Mean Corpuscular Volume 82 FL (80-99) Mean Corpuscular Hemoglobin 25.6 PG (27.0-31.0) Mean Corpuscular Hemoglobin Concent 31.4 G/DL (32.0-36.0) Red Cell Distribution Width 17.1 % (11.6-14.8) Platelet Count 279 K/UL (150-450) Mean Platelet Volume 5.8 FL (6.5-10.1) Neutrophils (%) (Auto) 52.9 % (45.0-75.0) Lymphocytes (%) (Auto) 31.8 % (20.0-45.0) Monocytes (%) (Auto) 14.1 % (1.0-10.0) Eosinophils (%) (Auto) 0.5 % (0.0-3.0) Basophils (%) (Auto) 0.6 % (0.0-2.0) Sodium Level 144 MMOL/L (136-145) Potassium Level 3.5 MMOL/L (3.5-5.1) Chloride Level 107 MMOL/L (98-107) Carbon Dioxide Level 28 MMOL/L (21-32) Anion Gap 9 mmol/L (5-15) Blood Urea Nitrogen 13 mg/dL (7-18) Creatinine 0.7 MG/DL (0.55-1.30) Estimat Glomerular Filtration Rate > 60 mL/min (>60) Glucose Level 90 MG/DL (74-106) Calcium Level 8.7 MG/DL (8.5-10.1) Total Bilirubin 0.4 MG/DL (0.2-1.0) Aspartate Amino Transf (AST/SGOT) 23 U/L (15-37) Alanine Aminotransferase (ALT/SGPT) 36 U/L (12-78) Alkaline Phosphatase 93 U/L (46-116) Troponin I 0.008 ng/mL (0.000-0.056) Total Protein 6.7 G/DL (6.4-8.2) Albumin 3.3 G/DL (3.4-5.0) Globulin 3.4 g/dL Albumin/Globulin Ratio 1.0 (1.0-2.7) EKG Diagnostic Results Rate: normal Rhythm: NSR ST Segments: no acute changes ASA given to the pt in ED: No Rhythm Strip Diag. Results EP Interpretation: yes Rhythm: NSR Chest X-Ray Diagnostic Results Chest X-Ray Diagnostic Results : Chest X-Ray Ordered: Yes # of Views/Limited/Complete: 1 View Indication: Shortness of Breath EP Interpretation: Yes Interpretation: no consolidation, no pneumothorax, other - hyperinflated lungs. atelectasis R lung base Impression: Other - COPD Electronically Signed by: Electronically signed by Stephen Win MD Last Vital Signs Date Time Temp Pulse Resp B/P (MAP) Pulse Ox O2 Delivery O2 Flow Rate FiO2 06/19/19 09:39 97.3 95 16 175/89 (117) 97 Room Air Status: improved Disposition: HOME, SELF-CARE Condition: Stable Scripts Prednisone* (PREDNISONE*) 20 Mg Tablet 40 MG ORAL DAILY, #10 TAB Prov: Stephen Win MD 06/19/19 Levofloxacin* (LEVAQUIN*) 750 Mg Tablet 750 MG ORAL DAILY for 5 Days, TAB Prov: Stephen Win MD 06/19/19 Albuterol Sulfate (VENTOLIN HFA) 18 Gm Hfa.aer.ad 1 PUFF INH EVERY 8 HOURS, #100 GM 0 Refills Prov: Stephen Win MD 06/19/19 Referrals: [facility],REFERRING (PCP) Stephen Win MD Jun 19, 2019 10:23
[2019-06-19 10:38] LABS: BASOPHILS % (AUTO) 0.6 % (0.0-2.0); EOSINOPHILS % (AUTO) 0.5 % (0.0-3.0); HEMATOCRIT 37.5 % (37.0-47.0); HEMOGLOBIN 11.8 G/DL (12.0-16.0); LYMPHOCYTES % (AUTO) 31.8 % (20.0-45.0); MEAN CORPUSCULAR VOLUME 82 FL (80-99); MONOCYTES % (AUTO) 14.1 % (1.0-10.0); NEUTROPHILS % (AUTO) 52.9 % (45.0-75.0); PLATELET COUNT 279 K/UL (150-450); RED CELL DISTRIBUTION WIDTH 17.1 % (11.6-14.8); WHITE BLOOD COUNT 6.2 K/UL (4.8-10.8)
[2019-06-19 10:45] LABS: ANION GAP 9 mmol/L (5-15); BLOOD UREA NITROGEN 13 mg/dL (7-18); CALCIUM 8.7 MG/DL (8.5-10.1); CARBON DIOXIDE 28 MMOL/L (21-32); CHLORIDE 107 MMOL/L (98-107); CREATININE 0.7 MG/DL (0.55-1.30); POTASSIUM 3.5 MMOL/L (3.5-5.1); SODIUM 144 MMOL/L (136-145)
[2019-06-19 10:50] LABS: ALANINE AMINOTRANSFERASE 36 U/L (12-78); ALBUMIN 3.3 G/DL (3.4-5.0); ALKALINE PHOSPHATASE 93 U/L (46-116); ASPARTATE AMINO TRANSFERASE 23 U/L (15-37); BILIRUBIN,TOTAL 0.4 MG/DL (0.2-1.0)
[2019-06-19] MEDS ORDERED: VENTOLIN HFA18 GM INH (11:26)
[2019-06-19] MEDS ORDERED: LEVAQUIN750 MG ORAL (11:26)
[2019-06-19] MEDS ORDERED: PREDNISONE20 MG ORAL (11:26)
[2019-06-19 11:35] VITALS: BP 154/88
--- NOTE | 2019-06-19 12:00 | Diagnostic Imaging Report ---
Indication: Chest pain Technique: One view of the chest Comparison: 06/07/2019 Findings: Reticular and hazy infiltrates are present at both lung bases. There are atelectatic changes at both lung bases. The heart size is normal. The aorta is tortuous and ectatic. There are chronic degenerative and possibly posttraumatic changes of the left shoulder Impression: Bilateral basilar reticular and hazy infiltrates, suspicious for pneumonia.
== END 2019-06-19 11:35 | disposition home or self-care (01) ==
LOC: EDBD 09:44 → EMR 10:05
DX: J44.9 Chronic obstructive pulmonary disease, unspecified (principal); G89.29 Other chronic pain; M32.9 Systemic lupus erythematosus, unspecified; Z88.0 Allergy status to penicillin; Z88.6 Allergy status to analgesic agent; Z88.8 Allergy status to other drugs, medicaments and biological substances; I10 Essential (primary) hypertension
CPT/HCPCS: 36415; 71045; 80053; 84484; 85025; 93005; 96374; 96375; 99284; J2270; J2930; J7620

== ENCOUNTER 2019-06-26 06:44 | Emergency (ER) | payer MEDICARE, OTHER ==
[~2019-06-26] VITALS: Ht 167.6 cm; Wt 59.0 kg
--- NOTE | 2019-06-26 06:45 | NUR ---
ED Nurse Note: BROUGHT IN BY AMBULANCE MAIKEL RA 61 FROM [facility] C/O BODY PAIN X 1 DAY. HX LUPUS. AMBULATORY WITH ASSIST. AO4. NAD. VSS. CHANGED INTO GOWN. ERMD AT BEDSIDE FOR EVALUATION.
--- NOTE | 2019-06-26 06:54 | Emergency Room Report ---
History of Present Illness General Chief Complaint: Pain Source: Patient Present Illness HPI Disclaimer: Please note that this report is being documented using DRAGON technology. This can lead to erroneous entry secondary to incorrect interpretation by the dictating instrument. HPI: 68-year-old female history of lupus, COPD presents complaining of body wide pain. She arrives by EMS from a grocery store. She states she has having diffuse joint and body pains for approximately 1 day. Scheduled to see her PMD and have refills of her narcotic pain medications tomorrow. She denies any recent fever, trauma, injury, shortness of breath, nausea, vomiting, diarrhea or changes in her health otherwise. Recently seen at this emergency department for COPD exacerbation recently tested negative for COVID-19 at another facility. No other complaints at this time. PMH: Lupus, COPD PSH: Reviewed Allergies: Haldol, azithromycin, aspirin and ampicillin Social Hx: Chronic opioid use Allergies: Coded Allergies: KETOROLAC TROMETHAMINE (Verified Allergy, Severe, Anaphylaxis, 10/22/18) PENICILLINS (Verified Allergy, Severe, Anaphylaxis, 10/22/18) TETRACYCLINE (Verified Allergy, Severe, Anaphylaxis, 10/22/18) HALOPERIDOL (Verified Allergy, Intermediate, Anaphylaxis, 10/22/18) HALOPERIDOL LACTATE (Verified Allergy, Intermediate, Anaphylaxis, 10/22/18) ERYTHROMYCIN BASE (Verified Allergy, Mild, 10/22/18) AMPICILLIN (Verified Allergy, Unknown, 10/22/18) ASPIRIN (Verified Allergy, Unknown, 10/22/18) AZITHROMYCIN (Unverified Allergy, Unknown, 04/17/19) IBUPROFEN (Verified Allergy, Unknown, 10/22/18) NAPROXEN (Verified Allergy, Unknown, 10/22/18) TETRACYCLINES (Unverified Allergy, Unknown, 06/19/19) COVID-19 Screening Contact w/high risk pt: No Recent Travel to affected area: No Experienced COVID-19 symptoms?: No COVID-19 symptoms experienced: Shortness of Breath, Cough Patient History Last Menstrual Period: NA Now: No : 3 Nursing Documentation-PMH Hx Hypertension: Yes Hx Pacemaker: No Hx Asthma: No Hx COPD: Yes Hx Diabetes: No Hx Cancer: No Hx Dialysis: No Hx Neurological Problems: Yes - lupus Hx Cerebrovascular Accident: No Hx Seizures: Yes Review of Systems All Other Systems: negative except mentioned in HPI Physical Exam Vital Signs Date Time Temp Pulse Resp B/P (MAP) Pulse Ox O2 Delivery O2 Flow Rate FiO2 06/26/19 06:35 98.2 100 18 160/80 (106) 97 Room Air General: Awake and alert, no acute distress Chest Wall: No tenderness, no deformity Cardiovascular: RRR. S1 and S2 normal. No murmur appreciated Resp: Normal work of breathing. No cough, wheezing or crackles appreciated Abdomen: Abdomen is soft, nondistended. Nontender Skin: Areas of loss of pigmentation, suspect vitiligo, nose, forehead MSK: Normal tone and bulk. Moving all extremities. No obvious deformity. Moving all extremities. Tender to palpation over the major muscle groups of the upper and lower extremities Neuro: Awake and alert. Mentating appropriately. Medical Decision Making Diagnostic Impression: Primary Impression: Total body pain Additional Impression: Myalgia ER Course 68-year-old female with history of systemic lupus, COPD presenting for evaluation of generalized body pains 1 day duration. Differential includes was not limited to myalgias, electrolyte abnormalities, medication side effect, opiate withdrawal, chronic pain, lupus exacerbation. Blood work was obtained to evaluate for liver abnormalities or kidney abnormalities in the setting of a new medication however they have returned within normal limits. Patient's pain is better controlled. Review of cures report shows she was recently prescribed 12 tablets of oxycodone on 06/23. Patient states she ran out of medications yesterday indicating she has not been taking them as prescribed. States she has an appoint with her PMD tomorrow. She will be discharged to follow-up with PMD. Discussed reasons to return to the emergency department. She understands and agrees with this treatment plan. Laboratory Tests Test 06/26/19 06:55 White Blood Count 7.7 K/UL (4.8-10.8) Red Blood Count 4.88 M/UL (4.20-5.40) Hemoglobin 12.4 G/DL (12.0-16.0) Hematocrit 39.4 % (37.0-47.0) Mean Corpuscular Volume 81 FL (80-99) Mean Corpuscular Hemoglobin 25.3 PG (27.0-31.0) L Mean Corpuscular Hemoglobin Concent 31.3 G/DL (32.0-36.0) L Red Cell Distribution Width 18.1 % (11.6-14.8) H Platelet Count 224 K/UL (150-450) Mean Platelet Volume 5.8 FL (6.5-10.1) L Neutrophils (%) (Auto) 66.3 % (45.0-75.0) Lymphocytes (%) (Auto) 22.7 % (20.0-45.0) Monocytes (%) (Auto) 9.2 % (1.0-10.0) Eosinophils (%) (Auto) 1.1 % (0.0-3.0) Basophils (%) (Auto) 0.6 % (0.0-2.0) Sodium Level 142 MMOL/L (136-145) Potassium Level 3.8 MMOL/L (3.5-5.1) Chloride Level 105 MMOL/L (98-107) Carbon Dioxide Level 26 MMOL/L (21-32) Anion Gap 11 mmol/L (5-15) Blood Urea Nitrogen 18 mg/dL (7-18) Creatinine 0.8 MG/DL (0.55-1.30) Estimated Glomerular Filtration Rate > 60 mL/min (>60) Glucose Level 103 MG/DL (74-106) Calcium Level 9.3 MG/DL (8.5-10.1) Total Bilirubin 0.6 MG/DL (0.2-1.0) Aspartate Amino Transferase (AST) 23 U/L (15-37) Alanine Aminotransferase (ALT) 27 U/L (12-78) Alkaline Phosphatase 88 U/L (46-116) Total Protein 7.2 G/DL (6.4-8.2) Albumin 3.5 G/DL (3.4-5.0) Globulin 3.7 g/dL Albumin/Globulin Ratio 0.9 (1.0-2.7) L Last Vital Signs Date Time Temp Pulse Resp B/P (MAP) Pulse Ox O2 Delivery O2 Flow Rate FiO2 06/26/19 06:35 98.2 100 18 160/80 (106) 97 Room Air Disposition: HOME, SELF-CARE Condition: Stable Filemon Winters MD Jun 26, 2019 06:54
[2019-06-26] MEDS ORDERED: Morphine Sulfate 2mg/ml Inj(IV/IM USE ONLY) IM ONE (07:00)
--- NOTE | 2019-06-26 07:11 | NUR ---
HAND-OFF: Report given to BRENDA RUVALCABA. ENDORSED COMPLETE BLOOD DRAW; SENT DOWN TO LAB. MEDICATED PRESCRIBED PATIENT TOLERATED WELL.
[2019-06-26 07:20] LABS: BASOPHILS % (AUTO) 0.6 % (0.0-2.0); EOSINOPHILS % (AUTO) 1.1 % (0.0-3.0); HEMATOCRIT 39.4 % (37.0-47.0); HEMOGLOBIN 12.4 G/DL (12.0-16.0); LYMPHOCYTES % (AUTO) 22.7 % (20.0-45.0); MEAN CORPUSCULAR VOLUME 81 FL (80-99); MONOCYTES % (AUTO) 9.2 % (1.0-10.0); NEUTROPHILS % (AUTO) 66.3 % (45.0-75.0); PLATELET COUNT 224 K/UL (150-450); RED BLOOD COUNT 4.88 M/UL (4.20-5.40); RED CELL DISTRIBUTION WIDTH 18.1 % (11.6-14.8); WHITE BLOOD COUNT 7.7 K/UL (4.8-10.8)
[2019-06-26 07:21] VITALS: BP 155/79
[2019-06-26 07:41] LABS: ANION GAP 11 mmol/L (5-15); BLOOD UREA NITROGEN 18 mg/dL (7-18); CALCIUM 9.3 MG/DL (8.5-10.1); CARBON DIOXIDE 26 MMOL/L (21-32); CHLORIDE 105 MMOL/L (98-107); CREATININE 0.8 MG/DL (0.55-1.30); POTASSIUM 3.8 MMOL/L (3.5-5.1); SODIUM 142 MMOL/L (136-145)
[2019-06-26 07:45] LABS: ALANINE AMINOTRANSFERASE 27 U/L (12-78); ALBUMIN 3.5 G/DL (3.4-5.0); ALBUMIN/GLOBULIN RATIO 0.9 (1.0-2.7); ALKALINE PHOSPHATASE 88 U/L (46-116); ASPARTATE AMINO TRANSFERASE 23 U/L (15-37); BILIRUBIN,TOTAL 0.6 MG/DL (0.2-1.0)
[2019-06-26 07:55] VITALS: BP 152/71
== END 2019-06-26 07:56 | disposition home or self-care (01) ==
LOC: EDBD 06:44 → EMR 06:57
DX: R52 Pain, unspecified (principal); M79.10 Myalgia, unspecified site; J44.9 Chronic obstructive pulmonary disease, unspecified; Z88.6 Allergy status to analgesic agent; Z88.0 Allergy status to penicillin; Z88.8 Allergy status to other drugs, medicaments and biological substances; R06.02 Shortness of breath; I10 Essential (primary) hypertension; G40.909 Epilepsy, unspecified, not intractable, without status epilepticus
CPT/HCPCS: 36415; 80053; 85025; 96372; 99283; J2270

== ENCOUNTER 2019-07-04 03:58 | Inpatient (IN) | payer MEDICARE, OTHER ==
[~2019-07-04] VITALS: Ht 162.6 cm; Wt 55.4 kg
[2019-07-04] MEDS ORDERED: Solu-MEDROL 125mg Inj IVP ONE (04:15)
[2019-07-04] MEDS ORDERED: Ipratropium 0.02% Inh Soln 2.5ml UD HHN ONE (04:15)
[2019-07-04] MEDS ORDERED: Albuterol ud Inhalation HHN ONE (04:15)
[2019-07-04 04:27] VITALS: BP 142/82
--- NOTE | 2019-07-04 04:29 | NUR ---
ED Nurse Note: Pt brought in by ambulance from home c/o SOB and cough for several hours. Pt SPO2 on RA 74%, Pt is A&Ox4, Pt has hx lupus, copd. Pt placed on draw string knotter, ERMD at bedside
[2019-07-04 04:32] LABS: BASOPHILS % (AUTO) 1.1 % (0.0-2.0); EOSINOPHILS % (AUTO) 1.1 % (0.0-3.0); HEMATOCRIT 33.6 % (37.0-47.0); HEMOGLOBIN 10.7 G/DL (12.0-16.0); LYMPHOCYTES % (AUTO) 16.8 % (20.0-45.0); MEAN CORPUSCULAR VOLUME 80 FL (80-99); MONOCYTES % (AUTO) 10.8 % (1.0-10.0); NEUTROPHILS % (AUTO) 70.2 % (45.0-75.0); PLATELET COUNT 231 K/UL (150-450); RED CELL DISTRIBUTION WIDTH 17.1 % (11.6-14.8); WHITE BLOOD COUNT 9.4 K/UL (4.8-10.8)
[2019-07-04] MEDS ORDERED: HYDROmorphone 1mg/ml Carpuject IVP ONE (04:45)
[2019-07-04] MEDS ORDERED: Cefepime HCl 1 GM in D5W 55 ML IVPB ONE (05:00)
--- NOTE | 2019-07-04 05:00 | NUR ---
ED Nurse Note: Urine sent to lab
[2019-07-04 05:03] LABS: ALANINE AMINOTRANSFERASE 29 U/L (12-78); ALBUMIN 3.7 G/DL (3.4-5.0); ALBUMIN/GLOBULIN RATIO 0.8 (1.0-2.7); ALKALINE PHOSPHATASE 105 U/L (46-116); ANION GAP 15 mmol/L (5-15); ASPARTATE AMINO TRANSFERASE 50 U/L (15-37); BILIRUBIN,TOTAL 0.9 MG/DL (0.2-1.0); BLOOD UREA NITROGEN 14 mg/dL (7-18); CALCIUM 8.8 MG/DL (8.5-10.1); CARBON DIOXIDE 23 MMOL/L (21-32); CHLORIDE 104 MMOL/L (98-107); CKMB 2.6 NG/ML (0.0-3.6); CREATINE KINASE 282 U/L (26-308); CREATININE 0.7 MG/DL (0.55-1.30); POTASSIUM 4.3 MMOL/L (3.5-5.1); SODIUM 142 MMOL/L (136-145)
--- NOTE | 2019-07-04 05:27 | Emergency Room Report ---
History of Present Illness General Chief Complaint: Upper Respiratory Illness Source: Patient, Medical Record, EMS Present Illness HPI This is a 68-year-old female with a history of lupus, chronic pain, COPD who presents with chief plane of shortness of breath. She has been having shortness of breath and coughing for last couple days. Also with fever. Symptoms worsened tonight where she could not breathe and had to call 911. Her inhaler was not helping. Per EMS, her oxygenation was around 71 percentile on room air. They placed her on oxygen and brought her here. Patient does not use oxygen. Patient denies any smoking. She quit tobacco many years ago. She still smokes marijuana but has not had any for over a month. Patient had fever. Shortness of breath is worsened with lying flat and exertion. Better with sitting up. Also with chest tightness. Cough is nonproductive nature. Also complained of generalized body pain that is 9 out of 10. This patient was evaluated in the context of the global COVID-19 pandemic, which necessitated consideration that the patient might be at risk for infection with the ZYMO-ELTTE-0 virus that causes COVID-19. Institutional protocols and algorithms that pertain to the evaluation of patients at risk for COVID-19 and the state of rapid change based on information released by multiple regulatory bodies including the CDC and federal and state organizations. These policies and algorithms were followed during the patient' s care in the ED. Allergies: Coded Allergies: KETOROLAC TROMETHAMINE (Verified Allergy, Severe, Anaphylaxis, 10/22/18) PENICILLINS (Verified Allergy, Severe, Anaphylaxis, 10/22/18) TETRACYCLINE (Verified Allergy, Severe, Anaphylaxis, 10/22/18) HALOPERIDOL LACTATE (Verified Allergy, Intermediate, Anaphylaxis, 10/22/18) ERYTHROMYCIN BASE (Verified Allergy, Mild, 10/22/18) AMPICILLIN (Verified Allergy, Unknown, 10/22/18) ASPIRIN (Verified Allergy, Unknown, 10/22/18) AZITHROMYCIN (Unverified Allergy, Unknown, 04/17/19) IBUPROFEN (Verified Allergy, Unknown, 10/22/18) NAPROXEN (Verified Allergy, Unknown, 10/22/18) COVID-19 Screening Contact w/high risk pt: No Recent Travel to affected area: No Experienced COVID-19 symptoms?: Yes COVID-19 symptoms experienced: Shortness of Breath, Cough Patient History Past Medical History: see triage record, old chart reviewed, HTN, COPD Past Surgical History: other Pertinent Family History: none Social History: Denies: smoking Last Menstrual Period: na Now: No : 6 Para: 3 Immunizations: other Reviewed Nursing Documentation: PMH: Agreed; PSxH: Agreed Nursing Documentation-PMH Hx Cardiac Problems: Yes - chf Hx Hypertension: Yes Hx Pacemaker: No Hx Asthma: No Hx COPD: Yes Hx Diabetes: No Hx Cancer: No Hx Dialysis: No Hx Neurological Problems: Yes - LUPUS Hx Cerebrovascular Accident: No Hx Seizures: Yes Review of Systems Constitutional: Reports: fever Eye: Denies: eye pain, blurred vision ENT: Denies: ear pain, nose congestion, throat swelling Respiratory: Reports: cough, shortness of breath, RODRIGUEZ Cardiovascular: Denies: chest pain, palpitations Gastrointestinal: Denies: abdominal pain, diarrhea, nausea, vomiting Musculoskeletal: Reports: joint pain; Denies: back pain Skin: Denies: rash Neurological: Denies: headache, numbness Endocrine: Denies: increased thirst, increased urine Hematologic/Lymphatic: Denies: easy bruising All Other Systems: negative except mentioned in HPI Physical Exam Vital Signs Date Time Temp Pulse Resp B/P (MAP) Pulse Ox O2 Delivery O2 Flow Rate FiO2 07/04/19 04:20 102 29 99 Bi-Pap 100 100 07/04/19 04:27 142/82 Vitals unremarkable Sp02 EP Interpretation: abnormal General Appearance: severe distress Head: normocephalic, atraumatic Eyes: bilateral eye PERRL, bilateral eye EOMI ENT: hearing grossly normal, normal pharynx Neck: full range of motion, supple, no meningismus Respiratory: chest non-tender, respiratory distress, decreased breath sounds, rhonchi Cardiovascular #1: regular rate, rhythm, no murmur Gastrointestinal: normal bowel sounds, non tender, no mass, no organomegaly, no bruit, non-distended Musculoskeletal: back normal, normal range of motion Neurologic: alert, oriented x3 Psychiatric: mood/affect normal Skin: no rash Procedures Critical Care Time Critical Care Time Critical care is mandated in this patient who presented with severe respiratory distress secondary to pneumonia and most likely COVID infection. Patient require my urgent intervention to attenuate the risks of metabolic collapse which may lead to cardiovascular collapse and . Critical care time is 35 minutes excluding any reportable procedure. Critical care time included evaluation, multiple reevaluation, looking at old charts, interpreting laboratory and diagnostic data, discussing case with patient and family and consultants, and charting. Medical Decision Making Diagnostic Impression: Primary Impression: Acute respiratory failure with hypoxia Additional Impressions: Community acquired pneumonia Qualified Codes: J18.9 - Pneumonia, unspecified organism Suspected 2019 novel coronavirus infection COPD with exacerbation Chronic pain Qualified Codes: G89.4 - Chronic pain syndrome ER Course Presents with rest or distress secondary to pneumonia. Her white count is normal but lymphocyte count is low. This is concerning for COVID infection. Swab was sent. Patient received breathing treatment and antibiotics here. She felt better now. Able to speak in full sentences now. Will admit for further work-up. I contacted Dr. Estes for admission. EKG Diagnostic Results Rate: tachycardiac Rhythm: NSR Rhythm Strip Diag. Results EP Interpretation: yes Rate: 97 Rhythm: NSR, no PVC's, no ectopy Chest X-Ray Diagnostic Results Chest X-Ray Diagnostic Results : Chest X-Ray Ordered: Yes # of Views/Limited/Complete: 1 View Indication: Shortness of Breath EP Interpretation: Yes Interpretation: no effusion, no pneumothorax, other - Bilateral groundglass opacity, greater on the right. Impression: Other - b/l infiltrates Electronically Signed by: Ralph Peña MD Last Vital Signs Date Time Temp Pulse Resp B/P (MAP) Pulse Ox O2 Delivery O2 Flow Rate FiO2 07/04/19 04:42 106 100 Bi-Pap 35 07/04/19 04:27 14 142/82 Status: improved Disposition: ADMITTED INPATIENT Condition: Serious Referrals: NOT CHOSEN IPA/,REFERRING (PCP) Ralph Peña MD July 04, 2019 05:27
[2019-07-04 05:39] LABS: APPEARANCE,URINE CLEAR; BILIRUBIN, URINE NEGATIVE (NEGATIVE); COLOR,URINE PALE YELLOW; GLUCOSE, URINE (UA) NEGATIVE (NEGATIVE); KETONES,URINE NEGATIVE (NEGATIVE); LEUKOCYTE ESTERASE ,URINE 1+ (NEGATIVE); NITRITE,URINE NEGATIVE (NEGATIVE); PH,URINE 5 (4.5-8.0); PROTEIN,URINE 2+ (NEGATIVE); UROBILINOGEN,URINE NORMAL MG/DL (0.0-1.0)
[2019-07-04] MEDS ORDERED: Enoxaparin 60mg Inj SUBQ ONE (06:00)
[2019-07-04] MEDS ORDERED: OXYCODONE HCL30 MG ORAL (06:15)
--- NOTE | 2019-07-04 07:03 | NUR ---
HAND-OFF: Report given to BRENDA Pinzon.
[2019-07-04 07:05] VITALS: BP 135/79
--- NOTE | 2019-07-04 07:05 | NUR ---
ED Nurse Note: Received repoert from Zahra GUTIERREZ. Pt alert and oriented x4, verbally responsive. Pt is on Bipap, tolerating well. Not in any distress.
--- NOTE | 2019-07-04 07:39 | NUR ---
ED Nurse Note: Dr. Reyes at bedside.
[2019-07-04] MEDS ORDERED: Levofloxacin 500mg tab ORAL SCH (09:00)
[2019-07-04] MEDS ORDERED: Hydroxychloroquine Fact Sheet MISC ONE (09:00)
--- NOTE | 2019-07-04 09:06 | NUR ---
RESPIRATORY NOTE: Patient took off the mask and refused to be back on Bipap , stated that" I don't want to be on it no more. I want the O2 from the wall". Placed pt on Non rebreather 15L 100%FiO2, saturated at 96%. Pt is awake, alert but noncompliance. RN aware. Waiting to transfer pt to ICU.
[2019-07-04 09:36] VITALS: BP 138/82
--- NOTE | 2019-07-04 09:45 | NUR ---
ED Nurse Note: REPORT GIVEN TO BRENDA BAEZ
--- NOTE | 2019-07-04 09:47 | NUR ---
RADIOLOGY DEPT., CHEST X-RAY DONE BY BRENDA IN ER.-P.DYE
[2019-07-04] MEDS: HYDROmorphone 1mg/ml Carpuject IVP PRN ×2 (10:34→19:40)
--- NOTE | 2019-07-04 10:34 | NUR ---
ED Nurse Note: Pt c/o 11/06 pain,. Dilaudid 1mg Q4 PRN given, per ERMD order.
--- NOTE | 2019-07-04 12:03 | Diagnostic Imaging Report ---
Indication: Shortness Technique: One view of the chest Comparison: 06/19/2019 Findings: Hours enlarged. Interstitial disease is seen at both mid and lower lungs. The pleural spaces are clear. The upper lungs are clear.. This appears somewhat less extensive than on the prior exam. Impression: Cardiomegaly. Bilateral mid and lower lung interstitial infiltrates versus edema.
--- NOTE | 2019-07-04 12:31 | NUR ---
ED Nurse Note: Report given to Trenton GUTIERREZ.
--- NOTE | 2019-07-04 13:05 | NUR ---
NURSE NOTES: Patient refuses Plaquenil therapy, states would like to speak with Dr. Alvarez or infectious disease doctor. Noted.
[2019-07-04 13:15] VITALS: BP 150/70
--- NOTE | 2019-07-04 13:30 | NUR ---
NURSE NOTES: Received report from BRENDA Lerma. COVID-19 PUI arrived to unit with face mask and covered by blanket. Patient is on non-rebreather at 15L 100%. Reinforced patient to keep mask on multiple times to maintain SpO2 90% or greater. Patient verbalized understanding but noted taking off mask multiple times and reminded multiple times. Denies any presence of pain or discomfort at this time. Placed patient on heart monitor. Bed is in lowest position, brakes engaged. Call light is kept within easy reach. Will continue to monitor patient.
--- NOTE | 2019-07-04 14:00 | NUR ---
NURSE NOTES: Dr. Jim Muñoz seen and examined patient at bedside. Explained to patient reason for COVID-19 treatment and Plaquenil treatment. Patient agreed to take Plaquenil therapy. Inquired if Dr. Jim Muñoz would like to order daily EKG to monitor patient while on Plaquenil therapy, Dr. Jim Muñoz informed this nurse one is enough, don't need anymore. Noted. Will continue to monitor patient.
[2019-07-04] MEDS: Solu-MEDROL 125mg Inj IVP SCH ×2 (14:22→19:40)
[2019-07-04] MEDS: cefTRIAXone 1gm/D5W 55ml IVPB SCH ×2 (14:22)
--- NOTE | 2019-07-04 15:32 | NUR ---
CASE MANAGEMENT: INITIAL REVIEW 07/04/2019 68 YO F BIBA FROM HOME CC: SOB 85% ON RA PMHx: HTN, COPD, LUPUS, SZ SI;PNA. COVID T 97.5 HR 98 RR 20 B/P 150/70 SATS 98% ON BIPAP FIO2 35 LABS: AST 50 BNP 815 UTOX (+OPIATES) ABGs PO2 313.3 IS:PROTONIX PO QD PLAQUENIL PO Q12H CEFTRIAXONE IV Q24H SOLU MEDROL IV Q8H CXR Impression: Other - b/l infiltrates PATIENT ADMITTED TO ICU 07/04/2019 @ 0520 DCP: HOME
[2019-07-04 15:58] VITALS: BP 138/75
--- NOTE | 2019-07-04 16:59 | Consultation ---
DATE OF CONSULTATION: 07/04/2019 PULMONARY CONSULTATION CONSULTING PHYSICIAN: Aquilino Sheldon MD. REASON FOR CONSULTATION: Respiratory insufficiency. HISTORY OF PRESENT ILLNESS: This is a 68-year-old female with history of lupus, COPD presents with shortness of breath. Patient with worsening shortness of breath over the past 48 hours with noted fevers. Patient required BiPAP in the emergency room, but apparently presently noncompliant. Patient with significant oxygen desaturation down to 71%. Patient was placed on oxygen and admitted through the emergency room. The patient apparently quit smoking, but does smoke marijuana. The patient denies any ill contacts. The patient was evaluated further in the emergency room and now placed on isolation. Patient's care discussed and reviewed. Patient's findings discussed. I was called to assist and evaluate further. PAST MEDICAL HISTORY: Notable for hypertension, COPD. The patient also has history of lupus, history of seizures. MEDICATIONS: Reviewed. ALLERGIES: Reviewed and reconciled. SOCIAL HISTORY: The patient is a past smoker. Nonsmoker at present. The patient is currently unemployed. The patient does not have any significant alcohol use. FAMILY HISTORY: Otherwise noncontributory to the above. REVIEW OF SYSTEMS: All 10 points reviewed, notable mostly for the shortness of breath, cough, and dyspnea as well as joint pain and noted fevers. Otherwise, all negative upon review. PHYSICAL EXAMINATION: GENERAL: A well-developed female. The patient is currently mildly tachypneic on BiPAP. VITAL SIGNS: Blood pressure 135/79, pulse rate 100, but up to 106, temperature 98.2, saturation 100%. HEENT: Negative. NECK: Supple. Patient has a BiPAP in place. LUNGS: With coarse breath sounds. Moderate air entry. No significant wheezes. CARDIAC: S1, S2. Regular rate and rhythm. Occasionally tachycardic. ABDOMEN: Soft, nontender, nondistended. EXTREMITIES: No cyanosis, clubbing, or edema. NEUROLOGIC: Grossly nonfocal, alert. MEDICATIONS: Reviewed. LABORATORY DATA: Reviewed. EKG with sinus tachycardia, occasional PVCs. Chest x-ray with noted bilateral infiltrates. The white count 9.4, platelets of 231. Sedimentation rate 61. Chemistries noted fairly negative. However, the C-reactive protein is elevated at 4. BNP is 815. Blood gases 7.37/44/313. IMPRESSION: 1. Bilateral infiltrates, possible COVID pneumonia, unclear at this time. 2. COPD per history. 3. Respiratory insufficiency. 4. History of seizures. 5. Elevated inflammatory markers. 6. Possible sepsis. RECOMMENDATIONS: Supportive care. Agree with management as outlined. Empiric COVID related hydroxychloroquine and azithromycin given. Avoid steroids with possible pain control and bronchodilators as needed. Oxygen therapy. Monitor acid-base. Monitor for change and any deterioration. DVT prophylaxis. Patient to be managed in the ICU overnight to monitor for any further deterioration or intervention. Care discussed and reviewed with the nursing staff. Aquilino Sheldon M.D. DR: LAURA JOB#: [id number] CC:
--- NOTE | 2019-07-04 19:11 | NUR ---
HAND-OFF: Report given to BRENDA Agee.
--- NOTE | 2019-07-04 19:20 | NUR ---
NURSE NOTES: Report received from BRENDA Chowdhury. Observed pt lying in the bed. A/O x4, C/O generalized pain, 9/10, aching, will give prn pain. SR on awake overnight monitor. On non-rebreather mask at 15L, sat at 100%. IV on R EJ, asymptomatic. Bed in the lowest position. Side rails up x3. Call light within reach. Will continue to monitor.
[2019-07-04 19:59] VITALS: BP_SYST 133; BP_SYST 79; BP_DIAS 75
--- NOTE | 2019-07-04 22:59 | Consultation ---
DATE OF CONSULTATION: 07/04/2019 INFECTIOUS DISEASES CONSULTATION This consult is for coverage of Dr. Alvarez. CONSULTING PHYSICIAN: Polo Muñoz MD PRIMARY ATTENDING PHYSICIAN: Flakito Reyes MD REASON FOR CONSULTATION: Pneumonia, suspected COVID-19 disease. HISTORY OF PRESENT ILLNESS: This is a 68-year-old female who lives at home, admitted early this morning with shortness of breath, coughing, and fever at home. The patient is not doing well for a couple of days, has decrease in O2 saturation in room air. 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 ALLERGIES: Multiple drug allergies including ampicillin, aspirin, azithromycin, erythromycin, haloperidol, ibuprofen, ketorolac, naproxen, tetracycline. MEDICATIONS: Getting hydroxychloroquine, methylprednisone, albuterol ipratropium, Levaquin, hydromorphone, Tylenol. SOCIAL HISTORY: . Lives with step daughter. Former smoker. No sick contact REVIEW OF SYSTEMS: Fever, nonproductive cough, shortness of breath, nausea without vomiting, some dysuria. PHYSICAL EXAMINATION: VITAL SIGNS: Temperature 98.2, pulse 96, blood pressure is 138/82. GENERAL APPEARANCE: Has respiratory distress. HEAD AND NECK: [place] conjunctiva. HEART: Normal rate. LUNGS: Decreased sounds, some wheezing, frequent cough, getting oxygen by rebreathing mask. ABDOMEN: Soft and nontender. EXTREMITIES: No edema. SKIN: Pigmentation area in the scalp and face, patchy area of baldness. NEUROLOGIC: Awake, alert, oriented x3. LABORATORY AND DIAGNOSTIC DATA: WBC 9.4, hemoglobin 10.7, hematocrit 33.6, and platelets is 231. Sodium 142, potassium 4.3, chloride 104, bicarb 23, BUN 14, creatinine 0.7, glucose 104. Albumin is 3.7. Urine toxicology was positive for opiates. UA showed WBC of 0 to 2. Chest x-ray showed bilateral mid and lower lung interstitial infiltrates versus edema. IMPRESSION: 1. Bilateral pneumonia. The patient is highly suspected for COVID-19 disease. 2. COPD. 3. Hypertension. 4. Hypoxemia. 5. 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 6. Anemia. 7. States she has a history of CVA. 8. Multiple drug and antibiotic allergies including ampicillin, azithromycin, tetracycline. RECOMMENDATION: Continue Levaquin and hydroxychloroquine. The patient gave verbal consent for use of hydroxychloroquine. It seems that the patient got one dose of cefepime in the ER without any adverse effect. At the end of my exam, I thank Dr. Reyes for involving me in the care of this patient. Polo Muñoz M.D. DR: Chaitanya JOB#: [id number] CC: MILADIS
[2019-07-05] VITALS: BP 153/83
--- NOTE | 2019-07-05 00:29 | History and Physical Report ---
DATE OF ADMISSION: 07/04/2019 CHIEF COMPLAINT: Shortness of breath. HISTORY OF PRESENT ILLNESS: The patient is a 68-year-old female. She has a history of COPD, chronic pain, systemic lupus who presented to the emergency room with complaints of shortness of breath. According to the patient, she has had intermittent fevers, chills, cough, and congestion. She notes that her sputum has been green and yellow. She denies any ill contacts except her daughter who helps her at home. Her daughter has not been ill and as far as she knows she has not had any contact with any known COVID-19 patients. The patient called 911 and she was brought to the emergency room where she was noted to be hypoxic and in respiratory distress. She was placed on BiPAP with improvement in her shortness of breath. She was noted on exam to have diffuse wheezes but no rales. Her chest x-ray showed cardiomegaly in bilateral mid and lower lung infiltrate versus edema. The patient is now admitted for further evaluation and care. PAST MEDICAL HISTORY: As above. PAST SURGICAL HISTORY: Includes abdominal surgery. CURRENT MEDICATIONS: Reconciled and reviewed. ALLERGIES: The patient has multiple drug allergies to penicillin, azithromycin, ibuprofen, naproxen. FAMILY HISTORY: Noncontributory. SOCIAL HISTORY: Negative for alcohol or drugs. The patient is a smoker. REVIEW OF SYSTEMS: GENERAL: Positive fevers and chills. No night sweats. HEENT: No headaches or visual changes. CARDIOPULMONARY: No chest pain. Positive shortness of breath and cough. Positive sputum. GASTROINTESTINAL: No nausea or vomiting. GENITOURINARY: No urgency or frequency. MUSCULOSKELETAL: Positive joint pain but no swelling. NEUROLOGIC: No evidence of seizures. SKIN: Positive history of rash. PHYSICAL EXAMINATION: VITAL SIGNS: Temperature 97.5, pulse 98, respirations 20, blood pressure 150/70. GENERAL: The patient is a chronically ill-appearing female, in no apparent distress. She is in moderate amount of respiratory distress. She is currently on BiPAP. HEENT: Head was normocephalic and atraumatic. Oropharynx is clear. Mucous membranes are moist. HEART: Regular rate and rhythm without murmurs, rubs, or gallops. LUNGS: Significant for diffuse wheezes with poor air movement. ABDOMEN: Soft, nontender, nondistended. EXTREMITIES: Without clubbing, cyanosis, or edema. SKIN: The patient noted on skin exam to have some hypopigmented patches on the head. NEUROLOGIC: Nonfocal. Motor strength is 5/5. LABORATORY DATA: White count 9. Sodium 142, potassium 4.3, creatinine 0.7. Troponin 0.009. Urine was clear. ASSESSMENT: This is a pleasant female with history of COPD, lupus, chronic pain admitted with complaints of shortness of breath secondary to COPD exacerbation. 1. COPD exacerbation. 2. Chronic pain. 3. Weakness. 4. Rule out pneumonia. 5. Rule out COVID. 6. Rule out CHF exacerbation. PLAN: 1. IV steroids. 2. Respiratory treatments. 3. ID, Pulmonary, Cardiology consultations. 4. DVT and stress ulcer prophylaxis. 5. IV pain medications as needed. 6. Plan of care was discussed with the patient. 7. Status is currently guarded. Flakito Reyes M.D. DR: Tapan JOB#: [id number] CC:
--- NOTE | 2019-07-05 01:00 | NUR ---
NURSE NOTES: Observed pt lying in the bed, awake. Denies any pain at this time. SR on hall monitor. On non-rebreather mask, 15L, noted pt keeps taking off the mask, education given, encourage pt to keep mask on, verbalize understanding. Sat at 98%. Will continue to monitor.
[2019-07-05] MEDS: Solu-MEDROL 125mg Inj IVP SCH ×3 (03:44→20:44)
[2019-07-05] MEDS: HYDROmorphone 1mg/ml Carpuject IVP PRN ×4 (03:44→20:45)
[2019-07-05 04:00] VITALS: BP_SYST 155; BP_SYST 160; BP_DIAS 85; BP_DIAS 90
--- NOTE | 2019-07-05 05:00 | Consultation ---
DATE OF CONSULTATION: 07/04/2019 CONSULTING PHYSICIAN: Karl Estes MD. ATTENDING PHYSICIAN: Flakito Castellanos MD. REASON FOR EVALUATION: Congestive heart failure. HISTORY OF PRESENT ILLNESS: This 68-year-old female with multiple medical problems, presented to the emergency room with shortness of breath. She has had intermittent fevers, chills and sputum production. She has not had any ill contacts. Now has she been exposed to COVID-19, per her knowledge. In the emergency room, the patient was noted to be hypoxic, tachypneic and required initiation of BiPAP support. Radiograph of the chest revealed bilateral infiltrates and cardiomegaly with possible edema. I have been asked to assist with cardiovascular care. PAST MEDICAL HISTORY: Includes systemic lupus, chronic obstructive pulmonary disease and prior abdominal surgery. ALLERGIES: Penicillin, azithromycin, ibuprofen, Naprosyn. MEDICATIONS: Reviewed and reconciled. SOCIAL HISTORY: Active smoker. No alcohol or substance abuse. Lives at home with daughter. REVIEW OF SYSTEMS: She has had fevers. There is no change in vision or hearing. There is no history of heart attack or irregular heartbeat. She does smoke and has chronic obstructive pulmonary disease. She has not had any change in bowel habits. She denies frequency or dysuria. She does have joint pain, but no change from her usual. She has not had any prior seizures or strokes. There is no history of diabetes or thyroid disorder. She has not had any new rash or skin breakdown. PHYSICAL EXAMINATION: VITAL SIGNS: Afebrile, blood pressure 150/70, pulse 98, respiratory rate 20, ill-appearing, moderate distress, on BiPAP support. Jugular venous pressure appears elevated. LUNGS: Bilateral breath sounds and rales with expiratory wheezes. CARDIAC: Regular rhythm and rate. Normal S1, S2 with a 1/6 systolic murmur at apex. ABDOMEN: Soft, and nontender. EXTREMITIES: Without edema. SKIN: There is some hypopigmentation noted on the skin and forehead. NEUROLOGIC: Nonfocal. LABORATORY AND DIAGNOSTIC DATA: White count 9.4, hemoglobin 10.7, sedimentation rate 61. Sodium 142, potassium 4.3, lactic acid 1.1, bicarb 23, BUN 14, creatinine 0.7. Troponin 0.009. Pro-natriuretic peptide 815. CK negative. ABG 7.37, 44, 313. EKG reveals sinus tachycardia with no acute ST abnormalities. IMPRESSIONS: 1. Bilateral infiltrates suggestive of pneumonia. 2. Rule out COVID-19. 3. Chronic obstructive pulmonary disease with paroxysmal bronchospasm. 4. Diastolic dysfunction with acute congestive heart failure. 5. History of lupus. PLAN: 1. Intensive care unit monitoring, respiratory support. 2. Monitor QTc interval while on hydroxychloroquine. 3. Monitor electrolytes. 4. Trend natriuretic peptide assay. 5. Diuresis, based on clinical parameters. 6. Echocardiogram to assess left ventricular function. 7. DVT prophylaxis with subcutaneous heparin. Karl Estes M.D. DR: NILSA JOB#: [id number] CC:
[2019-07-05] MEDS: Enoxaparin 40mg Inj SUBQ SCH ×2 (06:00→09:00)
--- NOTE | 2019-07-05 07:13 | NUR ---
NURSE NOTES: Received report from LANDON Tapia RN. Patient is alert, oriented x3-4. Patient is sitting up on side of the bed eating breakfast. As ordered; patient is on non-rebreather mask 15L saturating at 98%. SR on manager cardiac. Right IJ 18g, asymptomatic, intact. Assisted walker at bedside. Bed locked and in lowest position. Call light within reach. Will continue to monitor.
--- NOTE | 2019-07-05 07:31 | NUR ---
HAND-OFF: Report given to BRENDA Good. No distress noted at this time.
[2019-07-05 08:00] VITALS: BP 170/84
--- NOTE | 2019-07-05 08:20 | NUR ---
CASE MANAGEMENT: REVIEW 07/05/2019 SI:PNA. COVID T 98 HR 105 RR 32 B/P 160/90 SATS 98% ON 15L/NRB FIO2 100 LABS: NONE TODAY IS:PROTONIX PO QD PLAQUENIL PO Q12H CEFTRIAXONE IV Q24H SOLU MEDROL IV Q8H SDU DCP: HOME
--- NOTE | 2019-07-05 09:50 | NUR ---
*-* INSURANCE *-* ALL CLINICALS AND REVIEWS HAVE BEEN FAXED TO: [facility] [place] POONAM# [id number] (HARD COPY AUTH AFTER DISCH) NCM: ZULAY P- [phone] [id number] [phone]...REVIEW/CLINICAL
--- NOTE | 2019-07-05 10:40 | Infectious Diseases Prog Note ---
Assessment/Plan Assessment/Plan antibiotics : ceftriaxone, hydroxychloroquine A 1. r/o COVID 19 pneumonia on 15 liters O2, saturation 98 percent 2. COPD 3. hypertension 4, lupus 5. CVA P 1. continue ceftriaxone 2. continue hydroxychloroquine 3. will follow up cultures 4. continue isolation Subjective ROS Limited/Unobtainable: Yes Allergies: Coded Allergies: KETOROLAC TROMETHAMINE (Verified Allergy, Severe, Anaphylaxis, 10/22/18) PENICILLINS (Verified Allergy, Severe, Anaphylaxis, 10/22/18) TETRACYCLINE (Verified Allergy, Severe, Anaphylaxis, 10/22/18) HALOPERIDOL LACTATE (Verified Allergy, Intermediate, Anaphylaxis, 10/22/18) ERYTHROMYCIN BASE (Verified Allergy, Mild, 10/22/18) AMPICILLIN (Verified Allergy, Unknown, 10/22/18) ASPIRIN (Verified Allergy, Unknown, 10/22/18) AZITHROMYCIN (Unverified Allergy, Unknown, 04/17/19) IBUPROFEN (Verified Allergy, Unknown, 10/22/18) NAPROXEN (Verified Allergy, Unknown, 10/22/18) Objective Vital Signs Last 24 Hour Vital Signs Date Time Temp Pulse Resp B/P (MAP) Pulse Ox O2 Delivery O2 Flow Rate FiO2 07/05/19 08:00 Non-Rebreather 15.0 07/05/19 08:00 98.1 112 32 170/84 (112) 97 07/05/19 08:00 15.0 100 07/05/19 07:45 120 07/05/19 04:00 105 07/05/19 04:00 Non-Rebreather 15.0 07/05/19 04:00 98.0 106 32 160/90 (113) 98 07/05/19 04:00 15.0 100 07/05/19 00:00 Non-Rebreather 15.0 07/05/19 00:00 103 07/05/19 00:00 15.0 100 07/05/19 00:00 98.0 94 24 153/83 (106) 99 07/04/19 20:00 Non-Rebreather 15.0 07/04/19 20:00 15.0 100 07/04/19 19:59 97.5 89 20 133/75 (94) 100 07/04/19 19:05 84 07/04/19 16:00 15.0 100 07/04/19 16:00 Non-Rebreather 15.0 07/04/19 15:58 97.8 89 20 138/75 (96) 100 07/04/19 15:39 86 07/04/19 13:47 Non-Rebreather 15.0 07/04/19 13:15 97.5 98 20 150/70 (96) 98 07/04/19 11:04 98.2 Height (Feet): 5 Height (Inches): 4.00 Weight (Pounds): 120 Current Medications Medications (Trade) Dose Ordered Sig/Dom Route PRN Reason Start Time Stop Time Status Last Admin Dose Admin Acetaminophen (Tylenol) 650 mg Q4H PRN ORAL Mild Pain (Pain Scale 1-3) 07/04/19 09:00 08/03/19 08:59 Albuterol/ Ipratropium (Combivent Respimat) 1 puff Q4HRT INH 07/04/19 15:00 08/03/19 14:59 07/05/19 06:18 Ceftriaxone Sodium 1 gm/ Dextrose 55 ml @ 110 mls/hr Q24H IVPB 07/04/19 15:00 07/11/19 14:59 07/04/19 14:22 Enoxaparin Sodium (Lovenox) 40 mg DAILY SUBQ 07/05/19 06:00 10/03/19 05:59 07/05/19 09:00 Hydromorphone HCl (Dilaudid) 1 mg Q4H PRN IVP For Pain 07/04/19 09:00 07/11/19 08:59 07/05/19 03:44 Hydroxychloroquine Sulfate (Plaquenil) 200 mg Q12HR ORAL 07/05/19 09:00 07/08/19 21:01 07/05/19 08:47 Methylprednisolone Sodium Succinate (Solu-MEDROL) 60 mg Q8H IVP 07/04/19 12:00 10/02/19 11:59 07/05/19 03:44 Pantoprazole (Protonix) 40 mg DAILY ORAL 07/04/19 09:00 08/03/19 08:59 07/05/19 08:47 Massiel Alvarez MD July 05, 2019 10:40
[2019-07-05 12:00] VITALS: BP 141/87
--- NOTE | 2019-07-05 14:20 | General Progress Note ---
Assessment/Plan Problem List: (1) COVID-19 ruled out ICD Codes: Z03.818 - Encounter for observation for suspected exposure to other biological agents ruled out SNOMED: 729051379, 009485558 (2) Pneumonia ICD Codes: J18.9 - Pneumonia, unspecified organism SNOMED: 947324854 (3) Respiratory failure ICD Codes: J96.90 - Respiratory failure, unspecified, unspecified whether with hypoxia or hypercapnia SNOMED: 251654333 (4) Acute respiratory failure with hypoxia ICD Codes: J96.01 - Acute respiratory failure with hypoxia SNOMED: 81834127, 921176742 (5) COPD with exacerbation ICD Codes: J44.1 - Chronic obstructive pulmonary disease with (acute) exacerbation SNOMED: 487414820, 877133152 (6) Community acquired pneumonia ICD Codes: J18.9 - Pneumonia, unspecified organism SNOMED: 576834565, 546422501 Qualifiers: Qualified Codes: J18.9 - Pneumonia, unspecified organism Status: stable, progressing Assessment/Plan: cont bipap. wean as able. iv abx. steroids and resp rx. await covid. monitor cxr and abg. iv pain rx. dvt prophylaxis. guarded. Subjective ROS Limited/Unobtainable: No Constitutional: Reports: malaise, weakness HEENT: Reports: no symptoms Cardiovascular: Reports: no symptoms Respiratory: Reports: cough, shortness of breath, sputum Gastrointestinal/Abdominal: Reports: no symptoms Genitourinary: Reports: no symptoms Neurologic/Psychiatric: Reports: anxiety Endocrine: Reports: no symptoms Hematologic/Lymphatic: Reports: anemia Allergies: Coded Allergies: KETOROLAC TROMETHAMINE (Verified Allergy, Severe, Anaphylaxis, 10/22/18) PENICILLINS (Verified Allergy, Severe, Anaphylaxis, 10/22/18) TETRACYCLINE (Verified Allergy, Severe, Anaphylaxis, 10/22/18) HALOPERIDOL LACTATE (Verified Allergy, Intermediate, Anaphylaxis, 10/22/18) ERYTHROMYCIN BASE (Verified Allergy, Mild, 10/22/18) AMPICILLIN (Verified Allergy, Unknown, 10/22/18) ASPIRIN (Verified Allergy, Unknown, 10/22/18) AZITHROMYCIN (Unverified Allergy, Unknown, 04/17/19) IBUPROFEN (Verified Allergy, Unknown, 10/22/18) NAPROXEN (Verified Allergy, Unknown, 10/22/18) All Systems: reviewed and negative except above Subjective no real change. remains on bipap. very sob with minimal activity. on iv steroids and resp rx. covid still pending. c/o generalized pain. Objective Last 24 Hour Vital Signs Date Time Temp Pulse Resp B/P (MAP) Pulse Ox O2 Delivery O2 Flow Rate FiO2 07/05/19 12:00 15.0 100 07/05/19 12:00 98.2 91 22 141/87 (105) 99 07/05/19 12:00 89 07/05/19 12:00 Non-Rebreather 15.0 07/05/19 08:00 Non-Rebreather 15.0 07/05/19 08:00 98.1 112 32 170/84 (112) 97 07/05/19 08:00 15.0 100 07/05/19 07:45 120 07/05/19 04:00 105 07/05/19 04:00 Non-Rebreather 15.0 07/05/19 04:00 98.0 106 32 160/90 (113) 98 07/05/19 04:00 15.0 100 07/05/19 00:00 Non-Rebreather 15.0 07/05/19 00:00 103 07/05/19 00:00 15.0 100 07/05/19 00:00 98.0 94 24 153/83 (106) 99 07/04/19 20:00 Non-Rebreather 15.0 07/04/19 20:00 15.0 100 07/04/19 19:59 97.5 89 20 133/75 (94) 100 07/04/19 19:05 84 07/04/19 16:00 15.0 100 07/04/19 16:00 Non-Rebreather 15.0 07/04/19 15:58 97.8 89 20 138/75 (96) 100 07/04/19 15:39 86 Intake and Output 07/04/19 07/05/19 19:00 07:00 Intake Total 500 ml 500 ml Balance 500 ml 500 ml Intake Oral 500 ml 500 ml # Voids 2 4 # Bowel Movements 3 Height (Feet): 5 Height (Inches): 4.00 Weight (Pounds): 120 General Appearance: WD/WN, alert EENT: normal ENT inspection Neck: non-tender, normal alignment, supple Cardiovascular: normal rate, regular rhythm Respiratory/Chest: chest wall non-tender, lungs clear, normal breath sounds, no respiratory distress Abdomen: normal bowel sounds, non tender, soft, no organomegaly, no mass Edema: no edema noted Arm (L), no edema noted Arm (R), no edema noted Leg (L), no edema noted Leg (R), no edema noted Pedal (L), no edema noted Pedal (R), no edema noted Generalized Edema: trace edema Neurologic: engine monitor II-XII grossly normal, alert, oriented x 3, responsive Skin: rash Flakito Reyes MD July 05, 2019 14:20
[2019-07-05] MEDS: cefTRIAXone 1gm/D5W 55ml IVPB SCH ×2 (15:39)
[2019-07-05 16:00] VITALS: BP 153/84
--- NOTE | 2019-07-05 16:28 | Pulmonology Progress Note ---
Subjective ROS Limited/Unobtainable: No Allergies: Coded Allergies: KETOROLAC TROMETHAMINE (Verified Allergy, Severe, Anaphylaxis, 10/22/18) PENICILLINS (Verified Allergy, Severe, Anaphylaxis, 10/22/18) TETRACYCLINE (Verified Allergy, Severe, Anaphylaxis, 10/22/18) HALOPERIDOL LACTATE (Verified Allergy, Intermediate, Anaphylaxis, 10/22/18) ERYTHROMYCIN BASE (Verified Allergy, Mild, 10/22/18) AMPICILLIN (Verified Allergy, Unknown, 10/22/18) ASPIRIN (Verified Allergy, Unknown, 10/22/18) AZITHROMYCIN (Unverified Allergy, Unknown, 04/17/19) IBUPROFEN (Verified Allergy, Unknown, 10/22/18) NAPROXEN (Verified Allergy, Unknown, 10/22/18) All Systems: reviewed and negative except above Subjective noted oxygen desaturation on 4 liters NC agitated at times Objective Last 24 Hour Vital Signs Date Time Temp Pulse Resp B/P (MAP) Pulse Ox O2 Delivery O2 Flow Rate FiO2 07/05/19 12:00 15.0 100 07/05/19 12:00 98.2 91 22 141/87 (105) 99 07/05/19 12:00 89 07/05/19 12:00 Non-Rebreather 15.0 07/05/19 08:00 Non-Rebreather 15.0 07/05/19 08:00 98.1 112 32 170/84 (112) 97 07/05/19 08:00 15.0 100 07/05/19 07:45 120 07/05/19 04:00 105 07/05/19 04:00 Non-Rebreather 15.0 07/05/19 04:00 98.0 106 32 160/90 (113) 98 07/05/19 04:00 15.0 100 07/05/19 00:00 Non-Rebreather 15.0 07/05/19 00:00 103 07/05/19 00:00 15.0 100 07/05/19 00:00 98.0 94 24 153/83 (106) 99 07/04/19 20:00 Non-Rebreather 15.0 07/04/19 20:00 15.0 100 07/04/19 19:59 97.5 89 20 133/75 (94) 100 07/04/19 19:05 84 Intake and Output 07/04/19 07/05/19 19:00 07:00 Intake Total 500 ml 500 ml Balance 500 ml 500 ml Intake Oral 500 ml 500 ml # Voids 2 4 # Bowel Movements 3 Objective GENERAL: A well-developed female. on high flow HEENT: Negative. NECK: Supple. Patient has a BiPAP in place. LUNGS: reduced breath sounds. Moderate air entry. No significant wheezes. some rhonchi CARDIAC: S1, S2. Regular rate and rhythm. without MRG ABDOMEN: Soft, nontender, nondistended. EXTREMITIES: No cyanosis, clubbing, or edema. NEUROLOGIC: Grossly nonfocal, alert. Current Medications Medications (Trade) Dose Ordered Sig/Dom Route PRN Reason Start Time Stop Time Status Last Admin Dose Admin Acetaminophen (Tylenol) 650 mg Q4H PRN ORAL Mild Pain (Pain Scale 1-3) 07/04/19 09:00 08/03/19 08:59 Albuterol/ Ipratropium (Combivent Respimat) 1 puff Q4HRT INH 07/04/19 15:00 08/03/19 14:59 07/05/19 15:39 Ceftriaxone Sodium 1 gm/ Dextrose 55 ml @ 110 mls/hr Q24H IVPB 07/04/19 15:00 07/11/19 14:59 07/05/19 15:39 Enoxaparin Sodium (Lovenox) 40 mg DAILY SUBQ 07/05/19 06:00 10/03/19 05:59 07/05/19 09:00 Hydromorphone HCl (Dilaudid) 1 mg Q4H PRN IVP For Pain 07/04/19 09:00 07/11/19 08:59 07/05/19 11:11 Hydroxychloroquine Sulfate (Plaquenil) 200 mg Q12HR ORAL 07/05/19 09:00 07/08/19 21:01 07/05/19 08:47 Methylprednisolone Sodium Succinate (Solu-MEDROL) 60 mg Q8H IVP 07/04/19 12:00 10/02/19 11:59 07/05/19 11:08 Pantoprazole (Protonix) 40 mg DAILY ORAL 07/04/19 09:00 08/03/19 08:59 07/05/19 08:47 Assessment/Plan Assessment/Plan IMPRESSION: 1. Bilateral infiltrates, possible COVID pneumonia, unclear at this time. 2. COPD per history. 3. Respiratory insufficiency. 4. History of seizures. 5. Elevated inflammatory markers. 6. Possible sepsis. PLAN significant hypoxemia; asked RN to taper repeat ABG in am respiratory care oxygen management antibiotics await COVID results Aquilino Sheldon MD July 05, 2019 16:28
--- NOTE | 2019-07-05 16:35 | NUR ---
NURSE NOTES: called. Updated him on patient's respiratory status. Arounmd Addendum: 07/05/19 at 1726 by TALIA HALE RN Around 10am, attempted to wean patient off nonrebreather mask 15 L to nasal cannula 4 L. Patient was saturating at 90-92%, SOB, wheezing. Patient could not tolerate nasal cannula 4 L at that time. Patient is now on venturi mask 8 L, saturating at 96-98%. No wheezing, no SOB. Will continue to monitor.
--- NOTE | 2019-07-05 19:40 | NUR ---
HAND-OFF: Report given to BRENDA Fairchild. Patient is alert, orientedx3-4. VSS, SR on patient monitor. Patient is on venturi mask 40%, 8L as ordered. PO intake 100%. RR 19 breaths/min. Patient has a left IV access; intact, no swelling, no leaking. 1 person assist out of bed to chair, as well as bedside commode. Call light within reach. Bed locked and in lowest position. Will continue to monitor.
--- NOTE | 2019-07-05 19:45 | NUR ---
NURSE NOTES: Received patient and report from GEORGE MELGAR RN. Patient is awake ,resting in bed. On venturi mask 40% with no respiratory distress. o2 saturation is 95-98%. SR on nuclear monitoring technician.VSS. Afebrile.c/o joint pain (10/06) . will give pain Meds as ordered.IV to REJ intact, patent .call light in reach. bed locked, in low position. Bed alarm on. will continue plan of care.
[2019-07-05 20:00] VITALS: BP 150/85
[2019-07-06] VITALS: BP 161/97
[2019-07-06] MEDS: HYDROmorphone 1mg/ml Carpuject IVP PRN ×7 (00:27→20:29)
--- NOTE | 2019-07-06 01:23 | NUR ---
NURSE NOTES: Patient asleep in bed comfortably with no acute distress. o2 sat 99% with Venturi mask. No s/s of pain at this time. keep patient comfortable.
--- NOTE | 2019-07-06 03:14 | Progress Note ---
DATE: 07/05/2019 CARDIOLOGY PROGRESS NOTE SUBJECTIVE: The patient remains short of breath on BiPAP support. PHYSICAL EXAMINATION: VITAL SIGNS: Blood pressure 141/87, heart rate 91, respirations 22, afebrile. LUNGS: Coarse breath sounds. Scattered rhonchi. Few wheezes. CARDIAC: Regular rhythm and rate. Normal S1, S2. There is no appreciable murmur. ABDOMEN: Soft. EXTREMITIES: With trace edema. LABORATORY DATA: No new studies available. IMPRESSION: 1. Acute respiratory insufficiency. 2. Healthcare-acquired pneumonia. 3. COPD with paroxysmal bronchospasm. 4. Diastolic dysfunction with acute congestive heart failure. 5. Hypercoagulability with history of rheumatoid arthritis and lupus like syndrome. 6. Possible COVID-19, on hydroxychloroquine without QTc prolongation. PLAN: 1. Cardiac monitoring. 2. Respiratory support. 3. BiPAP as needed. 4. Monitor QTc interval. 5. Diuresis. 6. Followup echocardiogram. 7. Await COVID-19. Karl Estes M.D. DR: JAMAL JOB#: [id number] CC:
[2019-07-06 04:00] VITALS: BP 162/95
[2019-07-06] MEDS: Solu-MEDROL 125mg Inj IVP SCH (04:26)
--- NOTE | 2019-07-06 07:20 | NUR ---
HAND-OFF: Report given to SILVESTRE CORRALES RN using SBAR.No apparent distress.
--- NOTE | 2019-07-06 07:20 | NUR ---
NURSE NOTES: Received report from Devorah GUTIERREZ. Pt in bed awake and orientedx3 and able to make needs known. IV site in Right EJ 18G SL patent and asymptomatic. Side railsx2 up for safety. Call light within easy reach. Bed side commode placed at the bedside. Pt on non-skid socks. Pt's own walker at the bedside. Sinus rhythm noted. Will continue to plan of care.
[2019-07-06 08:00] VITALS: BP 151/89
[2019-07-06] MEDS: Enoxaparin 40mg Inj SUBQ SCH (08:31)
[2019-07-06 09:40] LABS: ALANINE AMINOTRANSFERASE 41 U/L (12-78); ALBUMIN 3.4 G/DL (3.4-5.0); ALBUMIN/GLOBULIN RATIO 1.1 (1.0-2.7); ALKALINE PHOSPHATASE 75 U/L (46-116); ANION GAP 7 mmol/L (5-15); ASPARTATE AMINO TRANSFERASE 35 U/L (15-37); BILIRUBIN,TOTAL 0.6 MG/DL (0.2-1.0); BLOOD UREA NITROGEN 20 mg/dL (7-18); CALCIUM 9.1 MG/DL (8.5-10.1); CARBON DIOXIDE 30 MMOL/L (21-32); CHLORIDE 108 MMOL/L (98-107); CREATININE 0.8 MG/DL (0.55-1.30); POTASSIUM 4.3 MMOL/L (3.5-5.1); SODIUM 145 MMOL/L (136-145)
[2019-07-06 09:54] LABS: BASOPHILS % (AUTO) 1.3 % (0.0-2.0); EOSINOPHILS % (AUTO) 0.1 % (0.0-3.0); HEMATOCRIT 31.9 % (37.0-47.0); HEMOGLOBIN 10.2 G/DL (12.0-16.0); MEAN CORPUSCULAR VOLUME 81 FL (80-99); MONOCYTES % (AUTO) 10.2 % (1.0-10.0); NEUTROPHILS % (AUTO) 68.4 % (45.0-75.0); PLATELET COUNT 213 K/UL (150-450); RED BLOOD COUNT 3.93 M/UL (4.20-5.40); RED CELL DISTRIBUTION WIDTH 17.8 % (11.6-14.8); WHITE BLOOD COUNT 9.2 K/UL (4.8-10.8)
--- NOTE | 2019-07-06 10:34 | Pulmonology Progress Note ---
Subjective ROS Limited/Unobtainable: Yes Allergies: Coded Allergies: KETOROLAC TROMETHAMINE (Verified Allergy, Severe, Anaphylaxis, 10/22/18) PENICILLINS (Verified Allergy, Severe, Anaphylaxis, 10/22/18) TETRACYCLINE (Verified Allergy, Severe, Anaphylaxis, 10/22/18) HALOPERIDOL LACTATE (Verified Allergy, Intermediate, Anaphylaxis, 10/22/18) ERYTHROMYCIN BASE (Verified Allergy, Mild, 10/22/18) AMPICILLIN (Verified Allergy, Unknown, 10/22/18) ASPIRIN (Verified Allergy, Unknown, 10/22/18) AZITHROMYCIN (Unverified Allergy, Unknown, 04/17/19) IBUPROFEN (Verified Allergy, Unknown, 10/22/18) NAPROXEN (Verified Allergy, Unknown, 10/22/18) All Systems: reviewed and negative except above Subjective saturations better care noted some confusion Objective Last 24 Hour Vital Signs Date Time Temp Pulse Resp B/P (MAP) Pulse Ox O2 Delivery O2 Flow Rate FiO2 07/06/19 08:00 Venturi Mask 8.0 07/06/19 08:00 8.0 40 07/06/19 08:00 85 07/06/19 08:00 98.4 85 22 151/89 (109) 99 07/06/19 04:00 97.1 84 24 162/95 (117) 95 07/06/19 04:00 79 07/06/19 04:00 Venturi Mask 8.0 07/06/19 04:00 8.0 40 07/06/19 00:00 Venturi Mask 8.0 07/06/19 00:00 97.1 85 24 161/97 (118) 99 07/06/19 00:00 8.0 40 07/06/19 00:00 74 07/05/19 20:00 Venturi Mask 8.0 07/05/19 20:00 90 07/05/19 20:00 98.0 88 24 150/85 (106) 95 07/05/19 20:00 8.0 40 07/05/19 16:55 Venturi Mask 8.0 07/05/19 16:45 96 07/05/19 16:00 8.0 96 07/05/19 16:00 97.8 89 20 153/84 (107) 96 07/05/19 16:00 Non-Rebreather 15.0 07/05/19 12:00 15.0 100 07/05/19 12:00 98.2 91 22 141/87 (105) 99 07/05/19 12:00 89 07/05/19 12:00 Non-Rebreather 15.0 Intake and Output 07/05/19 07/06/19 19:00 07:00 Intake Total 55 ml 350 ml Balance 55 ml 350 ml Intake Oral 350 ml IV Total 55 ml # Voids 4 3 Objective GENERAL: A well-developed female. on high flow HEENT: Negative. NECK: Supple. Patient has a BiPAP in place. LUNGS: reduced breath sounds. Moderate air entry. No significant wheezes. some rhonchi CARDIAC: S1, S2. Regular rate and rhythm. without MRG ABDOMEN: Soft, nontender, nondistended. EXTREMITIES: No cyanosis, clubbing, or edema. NEUROLOGIC: Grossly nonfocal, alert. Microbiology Date/Time Source Procedure Growth Status 07/04/19 04:15 Blood Blood Culture - Preliminary NO GROWTH AFTER 24 HOURS Resulted 07/04/19 04:00 Blood Blood Culture - Preliminary NO GROWTH AFTER 24 HOURS Resulted 07/04/19 06:00 Nasopharynx Coronavirus COVID-19 PCR ([facility]) - Final Complete Laboratory Tests 07/06/19 07:59: Arterial Blood pH 7.462H, Arterial Blood Partial Pressure CO2 39.4, Arterial Blood Partial Pressure O2 91.3, Arterial Blood HCO3 27.5H, Arterial Blood Oxygen Saturation 96.5, Arterial Blood Base Excess 3.5H, Albin Test Positive 07/06/19 08:35: White Blood Count 9.2, Red Blood Count 3.93L, Hemoglobin 10.2L, Hematocrit 31.9L , Mean Corpuscular Volume 81, Mean Corpuscular Hemoglobin 26.0L, Mean Corpuscular Hemoglobin Concent 32.1, Red Cell Distribution Width 17.8H, Platelet Count 213, Mean Platelet Volume 5.2L, Neutrophils (%) (Auto) 68.4, Lymphocytes (%) (Auto) 20.0, Monocytes (%) (Auto) 10.2H, Eosinophils (%) (Auto) 0.1, Basophils (%) (Auto) 1.3, Sodium Level 145, Potassium Level 4.3, Chloride Level 108H, Carbon Dioxide Level 30, Anion Gap 7, Blood Urea Nitrogen 20H, Creatinine 0.8, Estimat Glomerular Filtration Rate > 60, Glucose Level 84, Calcium Level 9.1, Magnesium Level 2.3, Total Bilirubin 0.6, Aspartate Amino Transf (AST/SGOT) 35, Alanine Aminotransferase (ALT/SGPT) 41, Alkaline Phosphatase 75, Pro-B-Type Natriuretic Peptide 1201H, Total Protein 6.5, Albumin 3.4, Globulin 3.1, Albumin/Globulin Ratio 1.1 Current Medications Medications (Trade) Dose Ordered Sig/Dom Route PRN Reason Start Time Stop Time Status Last Admin Dose Admin Acetaminophen (Tylenol) 650 mg Q4H PRN ORAL Mild Pain (Pain Scale 1-3) 07/04/19 09:00 08/03/19 08:59 Albuterol/ Ipratropium (Combivent Respimat) 1 puff Q4HRT INH 07/04/19 15:00 08/03/19 14:59 07/06/19 07:00 Ceftriaxone Sodium 1 gm/ Dextrose 55 ml @ 110 mls/hr Q24H IVPB 07/04/19 15:00 07/11/19 14:59 07/05/19 15:39 Enoxaparin Sodium (Lovenox) 40 mg DAILY SUBQ 07/05/19 06:00 10/03/19 05:59 07/06/19 08:31 Furosemide (Lasix) 20 mg DAILY IV 07/06/19 09:00 08/05/19 08:59 07/06/19 08:31 Hydromorphone HCl (Dilaudid) 1 mg Q4H PRN IVP For Pain 07/04/19 09:00 07/11/19 08:59 07/06/19 08:32 Hydroxychloroquine Sulfate (Plaquenil) 200 mg Q12HR ORAL 07/05/19 09:00 07/08/19 21:01 07/06/19 08:31 Methylprednisolone Sodium Succinate (Solu-MEDROL) 60 mg Q8H IVP 07/04/19 12:00 10/02/19 11:59 07/06/19 04:26 Pantoprazole (Protonix) 40 mg DAILY ORAL 07/04/19 09:00 08/03/19 08:59 07/06/19 08:31 Assessment/Plan Assessment/Plan IMPRESSION: 1. Bilateral infiltrates, possible COVID pneumonia, unclear at this time. 2. COPD per history. 3. Respiratory insufficiency. 4. History of seizures. 5. Elevated inflammatory markers. 6. Possible sepsis. PLAN taper oxygen acid base stable respiratory care oxygen management antibiotics reviewed negative COVID results meds noted impression, plan, and exam edited and reviewed in detail care discussed with Aquilino Guzman MD July 06, 2019 10:34
--- NOTE | 2019-07-06 10:52 | General Progress Note ---
Assessment/Plan Problem List: (1) COVID-19 ruled out ICD Codes: Z03.818 - Encounter for observation for suspected exposure to other biological agents ruled out SNOMED: 316246491, 578398315 (2) Pneumonia ICD Codes: J18.9 - Pneumonia, unspecified organism SNOMED: 583005695 (3) Respiratory failure ICD Codes: J96.90 - Respiratory failure, unspecified, unspecified whether with hypoxia or hypercapnia SNOMED: 688242488 (4) Acute respiratory failure with hypoxia ICD Codes: J96.01 - Acute respiratory failure with hypoxia SNOMED: 26108521, 941990388 (5) COPD with exacerbation ICD Codes: J44.1 - Chronic obstructive pulmonary disease with (acute) exacerbation SNOMED: 396877578, 112656850 (6) Community acquired pneumonia ICD Codes: J18.9 - Pneumonia, unspecified organism SNOMED: 408195253, 560376941 Qualifiers: Qualified Codes: J18.9 - Pneumonia, unspecified organism Status: stable, progressing Assessment/Plan: cont bipap. wean as able. iv abx. steroids and resp rx. await covid. monitor cxr and abg. iv pain rx. dvt prophylaxis. guarded. Subjective ROS Limited/Unobtainable: No Constitutional: Reports: malaise, weakness HEENT: Reports: no symptoms Cardiovascular: Reports: no symptoms Respiratory: Reports: cough Gastrointestinal/Abdominal: Reports: no symptoms Genitourinary: Reports: no symptoms Neurologic/Psychiatric: Reports: anxiety Endocrine: Reports: no symptoms Hematologic/Lymphatic: Reports: anemia Allergies: Coded Allergies: KETOROLAC TROMETHAMINE (Verified Allergy, Severe, Anaphylaxis, 10/22/18) PENICILLINS (Verified Allergy, Severe, Anaphylaxis, 10/22/18) TETRACYCLINE (Verified Allergy, Severe, Anaphylaxis, 10/22/18) HALOPERIDOL LACTATE (Verified Allergy, Intermediate, Anaphylaxis, 10/22/18) ERYTHROMYCIN BASE (Verified Allergy, Mild, 10/22/18) AMPICILLIN (Verified Allergy, Unknown, 10/22/18) ASPIRIN (Verified Allergy, Unknown, 10/22/18) AZITHROMYCIN (Unverified Allergy, Unknown, 04/17/19) IBUPROFEN (Verified Allergy, Unknown, 10/22/18) NAPROXEN (Verified Allergy, Unknown, 10/22/18) All Systems: reviewed and negative except above Subjective no real change. remains on bipap. very sob with minimal activity. on iv steroids and resp rx. covid still pending. c/o generalized pain. Objective Last 24 Hour Vital Signs Date Time Temp Pulse Resp B/P (MAP) Pulse Ox O2 Delivery O2 Flow Rate FiO2 07/06/19 08:00 Venturi Mask 8.0 07/06/19 08:00 8.0 40 07/06/19 08:00 85 07/06/19 08:00 98.4 85 22 151/89 (109) 99 07/06/19 04:00 97.1 84 24 162/95 (117) 95 07/06/19 04:00 79 07/06/19 04:00 Venturi Mask 8.0 07/06/19 04:00 8.0 40 07/06/19 00:00 Venturi Mask 8.0 07/06/19 00:00 97.1 85 24 161/97 (118) 99 07/06/19 00:00 8.0 40 07/06/19 00:00 74 07/05/19 20:00 Venturi Mask 8.0 07/05/19 20:00 90 07/05/19 20:00 98.0 88 24 150/85 (106) 95 07/05/19 20:00 8.0 40 07/05/19 16:55 Venturi Mask 8.0 07/05/19 16:45 96 07/05/19 16:00 8.0 96 07/05/19 16:00 97.8 89 20 153/84 (107) 96 07/05/19 16:00 Non-Rebreather 15.0 07/05/19 12:00 15.0 100 07/05/19 12:00 98.2 91 22 141/87 (105) 99 07/05/19 12:00 89 07/05/19 12:00 Non-Rebreather 15.0 Intake and Output 07/05/19 07/06/19 19:00 07:00 Intake Total 55 ml 350 ml Balance 55 ml 350 ml Intake Oral 350 ml IV Total 55 ml # Voids 4 3 Laboratory Tests 07/06/19 07:59: Arterial Blood pH 7.462H, Arterial Blood Partial Pressure CO2 39.4, Arterial Blood Partial Pressure O2 91.3, Arterial Blood HCO3 27.5H, Arterial Blood Oxygen Saturation 96.5, Arterial Blood Base Excess 3.5H, Albin Test Positive 07/06/19 08:35: White Blood Count 9.2, Red Blood Count 3.93L, Hemoglobin 10.2L, Hematocrit 31.9L , Mean Corpuscular Volume 81, Mean Corpuscular Hemoglobin 26.0L, Mean Corpuscular Hemoglobin Concent 32.1, Red Cell Distribution Width 17.8H, Platelet Count 213, Mean Platelet Volume 5.2L, Neutrophils (%) (Auto) 68.4, Lymphocytes (%) (Auto) 20.0, Monocytes (%) (Auto) 10.2H, Eosinophils (%) (Auto) 0.1, Basophils (%) (Auto) 1.3, Sodium Level 145, Potassium Level 4.3, Chloride Level 108H, Carbon Dioxide Level 30, Anion Gap 7, Blood Urea Nitrogen 20H, Creatinine 0.8, Estimat Glomerular Filtration Rate > 60, Glucose Level 84, Calcium Level 9.1, Magnesium Level 2.3, Total Bilirubin 0.6, Aspartate Amino Transf (AST/SGOT) 35, Alanine Aminotransferase (ALT/SGPT) 41, Alkaline Phosphatase 75, Pro-B-Type Natriuretic Peptide 1201H, Total Protein 6.5, Albumin 3.4, Globulin 3.1, Albumin/Globulin Ratio 1.1 Height (Feet): 5 Height (Inches): 4.00 Weight (Pounds): 141 Objective General Appearance: WD/WN, alert EENT: normal ENT inspection Neck: non-tender, normal alignment, supple Cardiovascular: normal rate, regular rhythm Respiratory/Chest: chest wall non-tender, lungs clear, normal breath sounds, no respiratory distress Abdomen: normal bowel sounds, non tender, soft, no organomegaly, no mass Edema: no edema noted Arm (L), no edema noted Arm (R), no edema noted Leg (L), no edema noted Leg (R), no edema noted Pedal (L), no edema noted Pedal (R), no edema noted Generalized Edema: trace edema Neurologic: mainframe architect II-XII grossly normal, alert, oriented x 3, responsive Skin: rash Flakito Reyes MD July 06, 2019 10:52
--- NOTE | 2019-07-06 11:08 | Infectious Diseases Prog Note ---
Assessment/Plan Assessment/Plan antibiotics : ceftriaxone, hydroxychloroquine A 1. r/o COVID 19 pneumonia test negative x 1 5.7.20 on 8 liters O2, saturation 99 percent 2. COPD 3. hypertension 4, lupus 5. CVA P 1. continue ceftriaxone 2. continue hydroxychloroquine 3. will follow up cultures 4. continue isolation Subjective Constitutional: Denies: fever, chills Respiratory: Reports: shortness of breath, dry cough Gastrointestinal/Abdominal: Reports: nausea, vomiting; Denies: diarrhea Musculoskeletal: Reports: pain Allergies: Coded Allergies: KETOROLAC TROMETHAMINE (Verified Allergy, Severe, Anaphylaxis, 10/22/18) PENICILLINS (Verified Allergy, Severe, Anaphylaxis, 10/22/18) TETRACYCLINE (Verified Allergy, Severe, Anaphylaxis, 10/22/18) HALOPERIDOL LACTATE (Verified Allergy, Intermediate, Anaphylaxis, 10/22/18) ERYTHROMYCIN BASE (Verified Allergy, Mild, 10/22/18) AMPICILLIN (Verified Allergy, Unknown, 10/22/18) ASPIRIN (Verified Allergy, Unknown, 10/22/18) AZITHROMYCIN (Unverified Allergy, Unknown, 04/17/19) IBUPROFEN (Verified Allergy, Unknown, 10/22/18) NAPROXEN (Verified Allergy, Unknown, 10/22/18) Objective Vital Signs Last 24 Hour Vital Signs Date Time Temp Pulse Resp B/P (MAP) Pulse Ox O2 Delivery O2 Flow Rate FiO2 07/06/19 08:00 Venturi Mask 8.0 07/06/19 08:00 8.0 40 07/06/19 08:00 85 07/06/19 08:00 98.4 85 22 151/89 (109) 99 07/06/19 04:00 97.1 84 24 162/95 (117) 95 07/06/19 04:00 79 07/06/19 04:00 Venturi Mask 8.0 07/06/19 04:00 8.0 40 07/06/19 00:00 Venturi Mask 8.0 07/06/19 00:00 97.1 85 24 161/97 (118) 99 07/06/19 00:00 8.0 40 07/06/19 00:00 74 07/05/19 20:00 Venturi Mask 8.0 07/05/19 20:00 90 07/05/19 20:00 98.0 88 24 150/85 (106) 95 07/05/19 20:00 8.0 40 07/05/19 16:55 Venturi Mask 8.0 07/05/19 16:45 96 07/05/19 16:00 8.0 96 07/05/19 16:00 97.8 89 20 153/84 (107) 96 07/05/19 16:00 Non-Rebreather 15.0 07/05/19 12:00 15.0 100 07/05/19 12:00 98.2 91 22 141/87 (105) 99 07/05/19 12:00 89 07/05/19 12:00 Non-Rebreather 15.0 Height (Feet): 5 Height (Inches): 4.00 Weight (Pounds): 141 Microbiology Date/Time Source Procedure Growth Status 07/04/19 04:15 Blood Blood Culture - Preliminary NO GROWTH AFTER 24 HOURS Resulted 07/04/19 04:00 Blood Blood Culture - Preliminary NO GROWTH AFTER 24 HOURS Resulted 07/04/19 06:00 Nasopharynx Coronavirus COVID-19 PCR ([facility]) - Final Complete Laboratory Tests Test 07/06/19 07:59 07/06/19 08:35 Arterial Blood pH 7.462 (7.350-7.450) Arterial Blood Partial Pressure CO2 39.4 mmHg (35.0-45.0) Arterial Blood Partial Pressure O2 91.3 mmHg (75.0-100.0) Arterial Blood HCO3 27.5 mmol/L (22.0-26.0) H Arterial Blood Oxygen Saturation 96.5 % (95-100) Arterial Blood Base Excess 3.5 (-2-2) H Albin Test Positive White Blood Count 9.2 K/UL (4.8-10.8) Red Blood Count 3.93 M/UL (4.20-5.40) L Hemoglobin 10.2 G/DL (12.0-16.0) L Hematocrit 31.9 % (37.0-47.0) L Mean Corpuscular Volume 81 FL (80-99) Mean Corpuscular Hemoglobin 26.0 PG (27.0-31.0) L Mean Corpuscular Hemoglobin Concent 32.1 G/DL (32.0-36.0) Red Cell Distribution Width 17.8 % (11.6-14.8) H Platelet Count 213 K/UL (150-450) Mean Platelet Volume 5.2 FL (6.5-10.1) L Neutrophils (%) (Auto) 68.4 % (45.0-75.0) Lymphocytes (%) (Auto) 20.0 % (20.0-45.0) Monocytes (%) (Auto) 10.2 % (1.0-10.0) H Eosinophils (%) (Auto) 0.1 % (0.0-3.0) Basophils (%) (Auto) 1.3 % (0.0-2.0) Sodium Level 145 MMOL/L (136-145) Potassium Level 4.3 MMOL/L (3.5-5.1) Chloride Level 108 MMOL/L (98-107) H Carbon Dioxide Level 30 MMOL/L (21-32) Anion Gap 7 mmol/L (5-15) Blood Urea Nitrogen 20 mg/dL (7-18) H Creatinine 0.8 MG/DL (0.55-1.30) Estimat Glomerular Filtration Rate > 60 mL/min (>60) Glucose Level 84 MG/DL (74-106) Calcium Level 9.1 MG/DL (8.5-10.1) Magnesium Level 2.3 MG/DL (1.8-2.4) Total Bilirubin 0.6 MG/DL (0.2-1.0) Aspartate Amino Transf (AST/SGOT) 35 U/L (15-37) Alanine Aminotransferase (ALT/SGPT) 41 U/L (12-78) Alkaline Phosphatase 75 U/L (46-116) Pro-B-Type Natriuretic Peptide 1201 pg/mL (0-125) H Total Protein 6.5 G/DL (6.4-8.2) Albumin 3.4 G/DL (3.4-5.0) Globulin 3.1 g/dL Albumin/Globulin Ratio 1.1 (1.0-2.7) Current Medications Medications (Trade) Dose Ordered Sig/Dom Route PRN Reason Start Time Stop Time Status Last Admin Dose Admin Acetaminophen (Tylenol) 650 mg Q4H PRN ORAL Mild Pain (Pain Scale 1-3) 07/04/19 09:00 08/03/19 08:59 Albuterol/ Ipratropium (Combivent Respimat) 1 puff Q4HRT INH 5/7/20 15:00 08/03/19 14:59 07/06/19 11:04 Ceftriaxone Sodium 1 gm/ Dextrose 55 ml @ 110 mls/hr Q24H IVPB 07/04/19 15:00 07/11/19 14:59 07/05/19 15:39 Enoxaparin Sodium (Lovenox) 40 mg DAILY SUBQ 07/05/19 06:00 10/03/19 05:59 07/06/19 08:31 Furosemide (Lasix) 20 mg DAILY IV 07/06/19 09:00 08/05/19 08:59 07/06/19 08:31 Hydromorphone HCl (Dilaudid) 1 mg Q4H PRN IVP For Pain 07/04/19 09:00 07/11/19 08:59 07/06/19 08:32 Hydroxychloroquine Sulfate (Plaquenil) 200 mg Q12HR ORAL 07/05/19 09:00 07/08/19 21:01 07/06/19 08:31 Methylprednisolone Sodium Succinate (Solu-MEDROL) 40 mg Q8H IVP 07/06/19 12:00 10/04/19 11:59 Pantoprazole (Protonix) 40 mg DAILY ORAL 07/04/19 09:00 08/03/19 08:59 07/06/19 08:31 Massiel Alvarez MD July 06, 2019 11:08
[2019-07-06 11:40] VITALS: BP 158/91
[2019-07-06] MEDS ORDERED: Solu-MEDROL 125mg Inj IVP SCH (12:00)
--- NOTE | 2019-07-06 12:11 | Diagnostic Imaging Report ---
EXAM: XR Chest, 1 View CLINICAL HISTORY: SOB TECHNIQUE: Frontal view of the chest. COMPARISON: Chest radiograph on 07/04/2019 FINDINGS: Hardware: None. Lungs/pleura: Hyperinflation of the lungs compatible with COPD. Emphysema most prominent in the upper lungs. Similar patchy opacities most prominently in the mid and lower lungs. Heart/mediastinum: Stable mild enlargement of the cardiac silhouette. After squatted calcifications in the aorta. Soft tissues: Calcifications in the proximal left upper arm soft tissues. Bones: No acute fracture. Upper abdomen: Normal. IMPRESSION: 1. Hyperinflation of the lungs compatible with COPD. Emphysema most prominent in the upper lungs. 2. Similar patchy opacities most prominently in the mid and lower lungs.
--- NOTE | 2019-07-06 12:18 | NUR ---
NURSE NOTES: O2 decreased to 3LPM via N/C and noted sating 94% on 3LPM
[2019-07-06] MEDS: cefTRIAXone 1gm/D5W 55ml IVPB SCH ×2 (15:21)
[2019-07-06 16:00] VITALS: BP 151/88
--- NOTE | 2019-07-06 17:24 | NUR ---
HAND-OFF: Report given to Jigna GUTIERREZ. Pt remains stable.
--- NOTE | 2019-07-06 17:30 | NUR ---
NURSE NOTES: Patient's transferred to Tele per Dr. Estes's order. Patient's in stable condition, ambulates steady with her own walker, AOx3, denies SOB, no s/s of distress, breathing regular and unlabored. IV is REJ, patent and flushed well. Nurse report given by BRENDA Longo. Patient refused to get her belongings checked, patient stated: "everything are in my bag. I'm telling you now. You don't need to check." Noted. Bed low and locked, call light within reach, side rails x 2, bed alarm is armed. Patient's on isolation precaution. Running on 3L nasal cannula. Will continue to monitor.
--- NOTE | 2019-07-06 19:27 | NUR ---
HAND-OFF: Report given to BRENDA Leal. Patient's stable, plan of care endorsed.
--- NOTE | 2019-07-06 19:30 | NUR ---
NURSE NOTES: Received report from BRENDA Benito. Patient awake, alert, and responsive. Able to communicate needs. On 3L oxygen per nasal cannula. No signs of acute distress or shortness of breath. IV noted on EJ, 18g, flushed and intact. Skin intact with noted discoloration on face. Patient complained of 10/10 pain all over the body, on dilaudid 1mg Q4H PRN. On droplet and contact precautions. Has a walker at bedside and able to use the walker from bed to commode independently. Bed in lowest position, brakes engaged, bed rails raised x3. Call light and belongings placed within reach. Will continue to monitor.
[2019-07-06 20:00] VITALS: BP 158/96
[2019-07-06] MEDS: Solu-MEDROL 40mg Inj IVP SCH (20:28)
[2019-07-07] VITALS: BP 169/73
--- NOTE | 2019-07-07 00:29 | Progress Note ---
DATE: 07/06/2019 CARDIOLOGY PROGRESS NOTE SUBJECTIVE: The patient remains on BiPAP, short of breath with minimal activity. Remains on steroids, antimicrobials, respiratory therapy. Monitored rhythm sinus with atrial ectopics, COVID swab negative x1. PHYSICAL EXAMINATION: VITAL SIGNS: Blood pressure 151/89, heart rate 85, respirations 22, afebrile. Oxygen saturation on 40%, mask 95%. LUNGS: Bilateral breath sounds. Rhonchi. CARDIAC: Regular rhythm and rate. Normal S1, S2. ABDOMEN: Soft. EXTREMITIES: Trace edema. LABORATORY AND DIAGNOSTIC DATA: White count 9.2, hemoglobin 10.2. Sodium 145, potassium 4.3, bicarb 30, BUN 20, creatinine 0.8. Pro-natriuretic peptide 1200. ABG 7.46, 49, 91. Chest x-ray today reveals patchy interstitial mid and lower lung infiltrates, no edema. IMPRESSION: 1. Acute respiratory failure. 2. Healthcare-associated pneumonia. 3. COPD with bronchospasm. 4. Acute on chronic diastolic congestive heart failure. 5. Hypercoagulable state due to rheumatoid arthritis. 6. Possible COVID-19 infection. 7. The patient on hydroxychloroquine with no signs of QTc prolongation. PLAN: 1. Cardiac monitoring. 2. Follow QTc interval. 3. Maintain therapeutic potassium and magnesium levels. 4. Monitor volume status and cardiorenal function. 5. Reassess for diuresis based on clinical parameters only. 6. DVT prophylaxis. Karl Estes M.D. DR: SHU JOB#: [id number] CC:
[2019-07-07] MEDS: HYDROmorphone 1mg/ml Carpuject IVP PRN ×6 (00:31→21:03)
[2019-07-07] MEDS: Solu-MEDROL 40mg Inj IVP SCH ×3 (03:24→21:04)
[2019-07-07 04:00] VITALS: BP 124/76
--- NOTE | 2019-07-07 07:32 | NUR ---
HAND-OFF: Report given to BRENDA Guillory. Plan of care endorsed. Patient stable.
--- NOTE | 2019-07-07 07:46 | NUR ---
NURSE NOTES: Received report from BRENDA Leal. Patient in bed resting, no active s/s cardiac, respiratory distress noticed at this time. Patient AOx4, on 3L oxygen via NC. IV on right EF 18G, asymptomatic, patent, intact. Bed in lowest position, call light within reach, bed alarm on, side rails up and padded x3. Will continue to monitor.
--- NOTE | 2019-07-07 07:49 | Pulmonology Progress Note ---
Subjective ROS Limited/Unobtainable: Yes Constitutional: Denies: fever, chills Gastrointestinal/Abdominal: Reports: nausea, vomiting; Denies: diarrhea Musculoskeletal: Reports: pain Allergies: Coded Allergies: KETOROLAC TROMETHAMINE (Verified Allergy, Severe, Anaphylaxis, 10/22/18) PENICILLINS (Verified Allergy, Severe, Anaphylaxis, 10/22/18) TETRACYCLINE (Verified Allergy, Severe, Anaphylaxis, 10/22/18) HALOPERIDOL LACTATE (Verified Allergy, Intermediate, Anaphylaxis, 10/22/18) ERYTHROMYCIN BASE (Verified Allergy, Mild, 10/22/18) AMPICILLIN (Verified Allergy, Unknown, 10/22/18) ASPIRIN (Verified Allergy, Unknown, 10/22/18) AZITHROMYCIN (Unverified Allergy, Unknown, 04/17/19) IBUPROFEN (Verified Allergy, Unknown, 10/22/18) NAPROXEN (Verified Allergy, Unknown, 10/22/18) All Systems: reviewed and negative except above Subjective saturations adequate on 3 liters NC care noted confused Objective Last 24 Hour Vital Signs Date Time Temp Pulse Resp B/P (MAP) Pulse Ox O2 Delivery O2 Flow Rate FiO2 07/07/19 04:00 3.0 07/07/19 04:00 98.6 99 18 124/76 (92) 98 07/07/19 04:00 84 07/07/19 00:00 3.0 07/07/19 00:00 84 07/07/19 00:00 97.5 102 18 169/73 (105) 98 07/06/19 20:00 3.0 07/06/19 20:00 98.6 95 16 158/96 (116) 93 07/06/19 20:00 85 07/06/19 16:06 75 07/06/19 16:00 98.1 88 22 151/88 (109) 95 07/06/19 16:00 3.0 07/06/19 16:00 Nasal Cannula 3.0 07/06/19 12:00 3.0 07/06/19 12:00 79 07/06/19 12:00 Nasal Cannula 3.0 07/06/19 11:40 98.0 92 22 158/91 (113) 94 07/06/19 08:00 Venturi Mask 8.0 07/06/19 08:00 8.0 40 07/06/19 08:00 85 07/06/19 08:00 98.4 85 22 151/89 (109) 99 Intake and Output 07/06/19 07/07/19 19:00 07:00 Intake Total 855 ml 800 ml Output Total 1200 ml Balance -345 ml 800 ml Intake Oral 800 ml 800 ml IV Total 55 ml Output Urine Total 1200 ml # Voids 5 # Bowel Movements 2 1 Objective GENERAL: A well-developed female. on NC oxygen HEENT: Negative. NECK: Supple. LUNGS: reduced breath sounds. Moderate air entry. No significant wheezes. occ rhonchi CARDIAC: S1, S2. Regular rate and rhythm. without MRG ABDOMEN: Soft, nontender, nondistended. EXTREMITIES: No cyanosis, clubbing, or edema. NEUROLOGIC: Grossly nonfocal, alert. reviewed and edited Laboratory Tests 07/06/19 07:59: Arterial Blood pH 7.462H, Arterial Blood Partial Pressure CO2 39.4, Arterial Blood Partial Pressure O2 91.3, Arterial Blood HCO3 27.5H, Arterial Blood Oxygen Saturation 96.5, Arterial Blood Base Excess 3.5H, Albin Test Positive 07/06/19 08:35: White Blood Count 9.2, Red Blood Count 3.93L, Hemoglobin 10.2L, Hematocrit 31.9L , Mean Corpuscular Volume 81, Mean Corpuscular Hemoglobin 26.0L, Mean Corpuscular Hemoglobin Concent 32.1, Red Cell Distribution Width 17.8H, Platelet Count 213, Mean Platelet Volume 5.2L, Neutrophils (%) (Auto) 68.4, Lymphocytes (%) (Auto) 20.0, Monocytes (%) (Auto) 10.2H, Eosinophils (%) (Auto) 0.1, Basophils (%) (Auto) 1.3, Sodium Level 145, Potassium Level 4.3, Chloride Level 108H, Carbon Dioxide Level 30, Anion Gap 7, Blood Urea Nitrogen 20H, Creatinine 0.8, Estimat Glomerular Filtration Rate > 60, Glucose Level 84, Calcium Level 9.1, Magnesium Level 2.3, Total Bilirubin 0.6, Aspartate Amino Transf (AST/SGOT) 35, Alanine Aminotransferase (ALT/SGPT) 41, Alkaline Phosphatase 75, Pro-B-Type Natriuretic Peptide 1201H, Total Protein 6.5, Albumin 3.4, Globulin 3.1, Albumin/Globulin Ratio 1.1 Current Medications Medications (Trade) Dose Ordered Sig/Dom Route PRN Reason Start Time Stop Time Status Last Admin Dose Admin Acetaminophen (Tylenol) 650 mg Q4H PRN ORAL Mild Pain (Pain Scale 1-3) 07/06/19 17:30 08/03/19 17:29 Albuterol/ Ipratropium (Combivent Respimat) 1 puff Q4HRT INH 07/06/19 19:00 08/03/19 14:59 07/07/19 06:15 Ceftriaxone Sodium 1 gm/ Dextrose 55 ml @ 110 mls/hr Q24H IVPB 07/07/19 15:00 07/11/19 14:59 Enoxaparin Sodium (Lovenox) 40 mg DAILY SUBQ 07/07/19 09:00 10/03/19 05:59 Hydromorphone HCl (Dilaudid) 1 mg Q4H PRN IVP For Pain 07/06/19 21:00 07/11/19 08:59 07/07/19 04:47 Hydroxychloroquine Sulfate (Plaquenil) 200 mg Q12HR ORAL 07/06/19 21:00 07/08/19 21:01 07/06/19 20:29 Methylprednisolone Sodium Succinate (Solu-MEDROL) 40 mg Q8H IVP 07/06/19 20:00 10/04/19 11:59 07/07/19 03:24 Pantoprazole (Protonix) 40 mg DAILY ORAL 07/07/19 09:00 08/03/19 08:59 Assessment/Plan Assessment/Plan IMPRESSION: 1. Bilateral infiltrates, negative COVID pneumonia 2. COPD 3. Respiratory insufficiency. 4. History of seizures. 5. Elevated inflammatory markers. 6. Possible sepsis. 7. Hypoxemia PLAN taper oxygen as able acid base follow up respiratory care off load antibiotics reviewed negative COVID results meds noted optimize follow up imaging impression, plan, and exam edited and reviewed in detail care discussed with Aquilino Guzman MD July 07, 2019 07:49
[2019-07-07 08:00] VITALS: BP 154/74
[2019-07-07] MEDS: Enoxaparin 40mg Inj SUBQ SCH (08:55)
--- NOTE | 2019-07-07 09:10 | NUR ---
NURSE NOTES: Dr. Reyes at the nursing station, clarified with hydroxychloroquine, per MD hold until ID clarification.
--- NOTE | 2019-07-07 10:15 | General Progress Note ---
Assessment/Plan Problem List: (1) COVID-19 ruled out ICD Codes: Z03.818 - Encounter for observation for suspected exposure to other biological agents ruled out SNOMED: 563349170, 105066063 (2) Pneumonia ICD Codes: J18.9 - Pneumonia, unspecified organism SNOMED: 736529938 (3) Respiratory failure ICD Codes: J96.90 - Respiratory failure, unspecified, unspecified whether with hypoxia or hypercapnia SNOMED: 082363525 (4) Acute respiratory failure with hypoxia ICD Codes: J96.01 - Acute respiratory failure with hypoxia SNOMED: 73421820, 093638876 (5) COPD with exacerbation ICD Codes: J44.1 - Chronic obstructive pulmonary disease with (acute) exacerbation SNOMED: 578957940, 044174079 (6) Community acquired pneumonia ICD Codes: J18.9 - Pneumonia, unspecified organism SNOMED: 290872446, 048796619 Qualifiers: Qualified Codes: J18.9 - Pneumonia, unspecified organism Status: stable, progressing Assessment/Plan: cont bipap. wean as able. iv abx. steroids and resp rx. await covid #2. monitor cxr and abg. iv pain rx. dvt prophylaxis. guarded. Subjective ROS Limited/Unobtainable: No Constitutional: Reports: malaise, weakness HEENT: Reports: no symptoms Cardiovascular: Reports: chest pain Respiratory: Reports: shortness of breath, wheezing Gastrointestinal/Abdominal: Reports: no symptoms Genitourinary: Reports: no symptoms Neurologic/Psychiatric: Reports: anxiety Endocrine: Reports: no symptoms Hematologic/Lymphatic: Reports: no symptoms Allergies: Coded Allergies: KETOROLAC TROMETHAMINE (Verified Allergy, Severe, Anaphylaxis, 10/22/18) PENICILLINS (Verified Allergy, Severe, Anaphylaxis, 10/22/18) TETRACYCLINE (Verified Allergy, Severe, Anaphylaxis, 10/22/18) HALOPERIDOL LACTATE (Verified Allergy, Intermediate, Anaphylaxis, 10/22/18) ERYTHROMYCIN BASE (Verified Allergy, Mild, 10/22/18) AMPICILLIN (Verified Allergy, Unknown, 10/22/18) ASPIRIN (Verified Allergy, Unknown, 10/22/18) AZITHROMYCIN (Unverified Allergy, Unknown, 04/17/19) IBUPROFEN (Verified Allergy, Unknown, 10/22/18) NAPROXEN (Verified Allergy, Unknown, 10/22/18) All Systems: reviewed and negative except above Subjective no real change. off bipap. very sob with minimal activity. on iv steroids and resp rx. covid neg x 1. c/o generalized pain. Objective Last 24 Hour Vital Signs Date Time Temp Pulse Resp B/P (MAP) Pulse Ox O2 Delivery O2 Flow Rate FiO2 07/07/19 08:00 98.2 94 18 154/74 (100) 94 07/07/19 08:00 90 07/07/19 08:00 3.0 07/07/19 04:00 3.0 07/07/19 04:00 98.6 99 18 124/76 (92) 98 07/07/19 04:00 84 07/07/19 00:00 3.0 07/07/19 00:00 84 07/07/19 00:00 97.5 102 18 169/73 (105) 98 07/06/19 20:00 3.0 07/06/19 20:00 98.6 95 16 158/96 (116) 93 07/06/19 20:00 85 07/06/19 16:06 75 07/06/19 16:00 98.1 88 22 151/88 (109) 95 07/06/19 16:00 3.0 07/06/19 16:00 Nasal Cannula 3.0 07/06/19 12:00 3.0 07/06/19 12:00 79 07/06/19 12:00 Nasal Cannula 3.0 07/06/19 11:40 98.0 92 22 158/91 (113) 94 Intake and Output 07/06/19 07/07/19 19:00 07:00 Intake Total 855 ml 800 ml Output Total 1200 ml Balance -345 ml 800 ml Intake Oral 800 ml 800 ml IV Total 55 ml Output Urine Total 1200 ml # Voids 5 # Bowel Movements 2 1 Height (Feet): 5 Height (Inches): 4.00 Weight (Pounds): 137 Objective General Appearance: WD/WN, alert EENT: normal ENT inspection Neck: non-tender, normal alignment, supple Cardiovascular: normal rate, regular rhythm Respiratory/Chest: chest wall non-tender, lungs clear, normal breath sounds, no respiratory distress Abdomen: normal bowel sounds, non tender, soft, no organomegaly, no mass Edema: no edema noted Arm (L), no edema noted Arm (R), no edema noted Leg (L), no edema noted Leg (R), no edema noted Pedal (L), no edema noted Pedal (R), no edema noted Generalized Edema: trace edema Neurologic: senior medical director II-XII grossly normal, alert, oriented x 3, responsive Skin: rash Flakito Reyes MD July 07, 2019 10:15
[2019-07-07 12:00] VITALS: BP 160/92
--- NOTE | 2019-07-07 13:39 | NUR ---
NURSE NOTES: Dr. Jim Muñoz at the nursing station, per MD hold hydroxychloroquine for now for negative result.
--- NOTE | 2019-07-07 14:00 | Infectious Diseases Prog Note ---
Assessment/Plan Assessment/Plan A 1. r/o COVID 19 pneumonia negative on 5.7.20 on 8 liters O2, saturation 99 percent 2. COPD 3. hypertension 4, lupus 5. CVA P 1. continue ceftriaxone 2. continue hydroxychloroquine 3. will follow up cultures 4. continue isolation Subjective ROS Limited/Unobtainable: No Constitutional: Reports: no symptoms Respiratory: Reports: shortness of breath, dry cough Cardiovascular: Reports: dyspnea on exertion Gastrointestinal/Abdominal: Reports: no symptoms Genitourinary: Reports: no symptoms Allergies: Coded Allergies: KETOROLAC TROMETHAMINE (Verified Allergy, Severe, Anaphylaxis, 10/22/18) PENICILLINS (Verified Allergy, Severe, Anaphylaxis, 10/22/18) TETRACYCLINE (Verified Allergy, Severe, Anaphylaxis, 10/22/18) HALOPERIDOL LACTATE (Verified Allergy, Intermediate, Anaphylaxis, 10/22/18) ERYTHROMYCIN BASE (Verified Allergy, Mild, 10/22/18) AMPICILLIN (Verified Allergy, Unknown, 10/22/18) ASPIRIN (Verified Allergy, Unknown, 10/22/18) AZITHROMYCIN (Unverified Allergy, Unknown, 04/17/19) IBUPROFEN (Verified Allergy, Unknown, 10/22/18) NAPROXEN (Verified Allergy, Unknown, 10/22/18) Objective Vital Signs Last 24 Hour Vital Signs Date Time Temp Pulse Resp B/P (MAP) Pulse Ox O2 Delivery O2 Flow Rate FiO2 07/07/19 12:00 3.0 07/07/19 12:00 99 07/07/19 12:00 98.4 92 18 160/92 (114) 93 07/07/19 08:00 98.2 94 18 154/74 (100) 94 07/07/19 08:00 90 07/07/19 08:00 3.0 07/07/19 04:00 3.0 07/07/19 04:00 98.6 99 18 124/76 (92) 98 07/07/19 04:00 84 07/07/19 00:00 3.0 07/07/19 00:00 84 07/07/19 00:00 97.5 102 18 169/73 (105) 98 07/06/19 20:00 3.0 07/06/19 20:00 98.6 95 16 158/96 (116) 93 07/06/19 20:00 85 07/06/19 16:06 75 07/06/19 16:00 98.1 88 22 151/88 (109) 95 07/06/19 16:00 3.0 07/06/19 16:00 Nasal Cannula 3.0 Height (Feet): 5 Height (Inches): 4.00 Weight (Pounds): 137 HEENT: mucous membranes moist Respiratory/Chest: other - oxygen by nasal cannula Cardiovascular: normal rate Abdomen: soft, non tender Extremities: no edema Skin: other - skin scars anddepigmentation on scalp & face Neurologic/Psychiatric: alert, oriented x 3, responsive Current Medications Medications (Trade) Dose Ordered Sig/Dom Route PRN Reason Start Time Stop Time Status Last Admin Dose Admin Acetaminophen (Tylenol) 650 mg Q4H PRN ORAL Mild Pain (Pain Scale 1-3) 07/06/19 17:30 08/03/19 17:29 Albuterol/ Ipratropium (Combivent Respimat) 1 puff Q4HRT INH 07/06/19 19:00 08/03/19 14:59 07/07/19 11:07 Ceftriaxone Sodium 1 gm/ Dextrose 55 ml @ 110 mls/hr Q24H IVPB 07/07/19 15:00 07/11/19 14:59 Enoxaparin Sodium (Lovenox) 40 mg DAILY SUBQ 07/07/19 09:00 10/03/19 05:59 07/07/19 08:55 Hydromorphone HCl (Dilaudid) 1 mg Q4H PRN IVP For Pain 07/06/19 21:00 07/11/19 08:59 07/07/19 13:05 Methylprednisolone Sodium Succinate (Solu-MEDROL) 40 mg Q8H IVP 07/06/19 20:00 10/04/19 11:59 07/07/19 11:08 Pantoprazole (Protonix) 40 mg DAILY ORAL 07/07/19 09:00 08/03/19 08:59 07/07/19 08:54 Polo Muñoz MD July 07, 2019 13:59
[2019-07-07] MEDS ORDERED: Tubing IV Secondary IV ONE ×2 (14:52→16:01)
[2019-07-07] MEDS: Captopril 25mg tab ORAL SCH ×2 (15:04→21:04)
[2019-07-07] MEDS: cefTRIAXone 1 GM in D5W 55 ML IVPB SCH (15:06)
[2019-07-07 16:00] VITALS: BP 152/80
[2019-07-07] MEDS ORDERED: NS 275ml ONE (16:01)
--- NOTE | 2019-07-07 18:31 | NUR ---
NURSE NOTES: Patient educated not to remove oxygen when s/s short of breath. Patient resistive to care, O2 sat checked 953%. Addendum: 07/07/19 at 1902 by KRISSY MORENO RN O2 sat. 93%
--- NOTE | 2019-07-07 19:03 | NUR ---
HAND-OFF: Report given to BRENDA Borrero. Endorsed plan of care.
--- NOTE | 2019-07-07 19:26 | NUR ---
NURSE NOTES: Pt received from BRENDA Guillory alert and oriented x4 with no acute s/s of distress noted. IV site asymptomatic and patent on R EJ and L forearm, saline lock. Bed in lowest position, call light and belongings within reach.
[2019-07-07 20:00] VITALS: BP 148/76
[2019-07-08] VITALS: BP 134/74
[2019-07-08] MEDS: HYDROmorphone 1mg/ml Carpuject IVP PRN ×6 (01:02→21:04)
--- NOTE | 2019-07-08 03:15 | Progress Note ---
DATE: 07/04/2019 SUBJECTIVE: The patient is still short of breath with activity. She is off BiPAP support. She has been COVID negative with blood pressure ranging from 124/70 to 169/73, heart rate 84 to 102, respiratory rate 18, afebrile, oxygen saturation 94% to 98% on 3 liters. PHYSICAL EXAMINATION: LUNGS: Bilateral breath sounds with rales. CARDIAC: Regular rhythm and rate. Normal S1, S2 with a 1/6 systolic apical murmur. ABDOMEN: Soft. EXTREMITIES: No edema. LABORATORY AND DIAGNOSTIC DATA: White count 9, hemoglobin 10. IMPRESSION: 1. Acute respiratory failure, improving. 2. Hypoxia, recovering. 3. Healthcare-associated pneumonia on therapy. 4. COPD with paroxysmal bronchospasm. 5. Nicotine dependence. 6. Acute on chronic diastolic congestive heart failure. 7. Hypercoagulable state. 8. She has remains on hydroxychloroquine therapy. PLAN: 1. Discontinue hydroxychloroquine since no definitive COVID infection noted. 2. Steroids with taper. 3. Antimicrobials. 4. Restart angiotensin-converting enzyme inhibitors and titrate. 5. DVT prophylaxis. Karl Estes M.D. DR: Romel JOB#: [id number] CC:
[2019-07-08 04:00] VITALS: BP 142/82
[2019-07-08] MEDS: Captopril 25mg tab ORAL SCH ×3 (05:07→22:24)
[2019-07-08] MEDS: Solu-MEDROL 40mg Inj IVP SCH ×2 (05:07→13:00)
--- NOTE | 2019-07-08 07:28 | NUR ---
HAND-OFF: Report given to BRENDA Foreman.
[2019-07-08 07:38] LABS: BASOPHILS % (AUTO) 0.5 % (0.0-2.0); HEMATOCRIT 38.6 % (37.0-47.0); HEMOGLOBIN 12.3 G/DL (12.0-16.0); LYMPHOCYTES % (AUTO) 9.9 % (20.0-45.0); MEAN CORPUSCULAR VOLUME 81 FL (80-99); MONOCYTES % (AUTO) 7.6 % (1.0-10.0); NEUTROPHILS % (AUTO) 81.9 % (45.0-75.0); PLATELET COUNT 307 K/UL (150-450); RED BLOOD COUNT 4.78 M/UL (4.20-5.40)
[2019-07-08 08:00] VITALS: BP 110/68
--- NOTE | 2019-07-08 08:12 | NUR ---
NURSE NOTES: Patient stable, AOx4 with asking for a different breakfast. Kitchen called. SOB noted. PT off NC but sating well on RA. Does not want NC at this time. Side rails up x2, call light within reach, bed low and locked. Will continue to monitor.
[2019-07-08 08:23] LABS: ALANINE AMINOTRANSFERASE 36 U/L (12-78); ALBUMIN 3.3 G/DL (3.4-5.0); ALBUMIN/GLOBULIN RATIO 0.8 (1.0-2.7); ALKALINE PHOSPHATASE 83 U/L (46-116); ANION GAP 9 mmol/L (5-15); ASPARTATE AMINO TRANSFERASE 19 U/L (15-37); BILIRUBIN,TOTAL 0.6 MG/DL (0.2-1.0); BLOOD UREA NITROGEN 18 mg/dL (7-18); CARBON DIOXIDE 30 MMOL/L (21-32); CHLORIDE 105 MMOL/L (98-107); CREATININE 0.7 MG/DL (0.55-1.30); SODIUM 144 MMOL/L (136-145)
--- NOTE | 2019-07-08 08:36 | Pulmonology Progress Note ---
Subjective ROS Limited/Unobtainable: Yes Constitutional: Reports: no symptoms Gastrointestinal/Abdominal: Reports: no symptoms Musculoskeletal: Reports: pain Allergies: Coded Allergies: KETOROLAC TROMETHAMINE (Verified Allergy, Severe, Anaphylaxis, 10/22/18) PENICILLINS (Verified Allergy, Severe, Anaphylaxis, 10/22/18) TETRACYCLINE (Verified Allergy, Severe, Anaphylaxis, 10/22/18) HALOPERIDOL LACTATE (Verified Allergy, Intermediate, Anaphylaxis, 10/22/18) ERYTHROMYCIN BASE (Verified Allergy, Mild, 10/22/18) AMPICILLIN (Verified Allergy, Unknown, 10/22/18) ASPIRIN (Verified Allergy, Unknown, 10/22/18) AZITHROMYCIN (Unverified Allergy, Unknown, 04/17/19) IBUPROFEN (Verified Allergy, Unknown, 10/22/18) NAPROXEN (Verified Allergy, Unknown, 10/22/18) All Systems: reviewed and negative except above Subjective remains on 3 liters NC care noted no distress confused Objective Last 24 Hour Vital Signs Date Time Temp Pulse Resp B/P (MAP) Pulse Ox O2 Delivery O2 Flow Rate FiO2 07/08/19 05:07 142/82 07/08/19 04:00 97.4 94 18 142/82 (102) 95 07/08/19 04:00 78 07/08/19 04:00 3.0 07/08/19 00:00 78 07/08/19 00:00 97.2 94 18 134/74 (94) 95 07/07/19 21:04 148/76 07/07/19 21:00 Nasal Cannula 3.0 07/07/19 20:00 3.0 07/07/19 20:00 93 07/07/19 20:00 97.4 95 18 148/76 (100) 96 07/07/19 16:00 97.7 94 18 152/80 (104) 95 07/07/19 16:00 98 07/07/19 16:00 3.0 07/07/19 15:04 160/92 07/07/19 12:00 3.0 07/07/19 12:00 99 07/07/19 12:00 98.4 92 18 160/92 (114) 93 Intake and Output 07/07/19 07/08/19 19:00 07:00 Intake Total 840 ml 300 ml Output Total 1500 ml Balance 840 ml -1200 ml Intake Oral 840 ml 300 ml Output Urine Total 1500 ml # Voids 3 # Bowel Movements 2 Objective GENERAL: A well-developed female. on NC oxygen HEENT: Negative. NECK: Supple. LUNGS: reduced breath sounds. Moderate air entry. No significant wheezes. no rhonchi CARDIAC: S1, S2. Regular rate and rhythm. without MRG ABDOMEN: Soft, nontender, nondistended. EXTREMITIES: No cyanosis, clubbing, or edema. NEUROLOGIC: Grossly nonfocal, alert. reviewed and edited HEENT: mucous membranes moist Abdomen: soft, non tender Extremities: no edema Skin: other - skin scars anddepigmentation on scalp & face Neurologic/Psychiatric: alert, oriented x 3, responsive Laboratory Tests 07/08/19 06:55: White Blood Count 8.0, Red Blood Count 4.78, Hemoglobin 12.3, Hematocrit 38.6, Mean Corpuscular Volume 81, Mean Corpuscular Hemoglobin 25.7L, Mean Corpuscular Hemoglobin Concent 31.8L, Red Cell Distribution Width 17.0H, Platelet Count 307 , Mean Platelet Volume 5.7L, Neutrophils (%) (Auto) 81.9H, Lymphocytes (%) (Auto ) 9.9L, Monocytes (%) (Auto) 7.6, Eosinophils (%) (Auto) 0.0, Basophils (%) ( Auto) 0.5, Sodium Level 144, Potassium Level 4.0, Chloride Level 105, Carbon Dioxide Level 30, Anion Gap 9, Blood Urea Nitrogen 18, Creatinine 0.7, Estimat Glomerular Filtration Rate > 60, Glucose Level 115H, Calcium Level 9.0, Magnesium Level 2.3, Total Bilirubin 0.6, Aspartate Amino Transf (AST/SGOT) 19, Alanine Aminotransferase (ALT/SGPT) 36, Alkaline Phosphatase 83, Pro-B-Type Natriuretic Peptide 884H, Total Protein 7.5, Albumin 3.3L, Globulin 4.2, Albumin /Globulin Ratio 0.8L Current Medications Medications (Trade) Dose Ordered Sig/Dom Route PRN Reason Start Time Stop Time Status Last Admin Dose Admin Acetaminophen (Tylenol) 650 mg Q4H PRN ORAL Mild Pain (Pain Scale 1-3) 07/06/19 17:30 08/03/19 17:29 Albuterol/ Ipratropium (Combivent Respimat) 1 puff Q4HRT INH 07/06/19 19:00 08/03/19 14:59 07/08/19 06:21 Captopril (Capoten) 50 mg EVERY 8 HOURS ORAL 07/07/19 14:45 08/06/19 14:44 07/08/19 05:07 Ceftriaxone Sodium 1 gm/ Dextrose 55 ml @ 110 mls/hr Q24H IVPB 07/07/19 15:00 07/11/19 14:59 07/07/19 15:06 Enoxaparin Sodium (Lovenox) 40 mg DAILY SUBQ 07/07/19 09:00 10/03/19 05:59 07/07/19 08:55 Hydromorphone HCl (Dilaudid) 1 mg Q4H PRN IVP For Pain 07/06/19 21:00 07/11/19 08:59 07/08/19 05:07 Methylprednisolone Sodium Succinate (Solu-MEDROL) 40 mg Q8H IVP 07/06/19 20:00 10/04/19 11:59 07/08/19 05:07 Pantoprazole (Protonix) 40 mg DAILY ORAL 07/07/19 09:00 08/03/19 08:59 07/07/19 08:54 Assessment/Plan Assessment/Plan IMPRESSION: 1. Bilateral infiltrates, negative COVID pneumonia 2. COPD 3. Respiratory insufficiency. 4. History of seizures. 5. Elevated inflammatory markers. 6. Possible sepsis. 7. Hypoxemia PLAN taper oxygen to off acid base follow up respiratory care as is off load antibiotics reviewed negative COVID results meds noted optimize follow up imaging- minimal changes noted dc planning soon impression, plan, and exam edited and reviewed in detail care discussed with Aquilino Guzman MD July 08, 2019 08:36
[2019-07-08] MEDS: Enoxaparin 40mg Inj SUBQ SCH (09:05)
--- NOTE | 2019-07-08 10:38 | NUR ---
CASE MANAGEMENT:REVIEW 07/08/19 SI: ACUTE RESPIRATORY FAILURE BILATERAL PNA. COPD 97.9 83 20 110/68 98% ON 3L/NC BNP+884 IS: IV ROCEPHIN Q24 IV SOLUMEDROL Q8HRS DUONEB INH Q4HRS RTC CAPTOPRIL PO Q8HR LOVENOX SQ QD PROTONIX PO QD : TELEMETRY STATUS DCP: FROM HOME
--- NOTE | 2019-07-08 11:01 | Infectious Diseases Prog Note ---
Assessment/Plan Assessment/Plan antibiotics : ceftriaxone, hydroxychloroquine A 1. r/o COVID 19 pneumonia test negative x 1 5.7.20 on 3 liters O2, saturation 98 percent 2. COPD 3. hypertension 4, lupus 5. CVA P 1. continue ceftriaxone 2 more days 2. d/c hydroxychloroquine 3. will follow up cultures 4. continue isolation Subjective Constitutional: Denies: fever, chills Respiratory: Reports: shortness of breath, dry cough Gastrointestinal/Abdominal: Reports: nausea; Denies: vomiting, diarrhea Musculoskeletal: Reports: pain Allergies: Coded Allergies: KETOROLAC TROMETHAMINE (Verified Allergy, Severe, Anaphylaxis, 10/22/18) PENICILLINS (Verified Allergy, Severe, Anaphylaxis, 10/22/18) TETRACYCLINE (Verified Allergy, Severe, Anaphylaxis, 10/22/18) HALOPERIDOL LACTATE (Verified Allergy, Intermediate, Anaphylaxis, 10/22/18) ERYTHROMYCIN BASE (Verified Allergy, Mild, 10/22/18) AMPICILLIN (Verified Allergy, Unknown, 10/22/18) ASPIRIN (Verified Allergy, Unknown, 10/22/18) AZITHROMYCIN (Unverified Allergy, Unknown, 04/17/19) IBUPROFEN (Verified Allergy, Unknown, 10/22/18) NAPROXEN (Verified Allergy, Unknown, 10/22/18) Objective Vital Signs Last 24 Hour Vital Signs Date Time Temp Pulse Resp B/P (MAP) Pulse Ox O2 Delivery O2 Flow Rate FiO2 07/08/19 08:00 97 07/08/19 08:00 97.9 83 20 110/68 (82) 98 07/08/19 05:07 142/82 07/08/19 04:00 97.4 94 18 142/82 (102) 95 07/08/19 04:00 78 07/08/19 04:00 3.0 07/08/19 00:00 78 07/08/19 00:00 97.2 94 18 134/74 (94) 95 07/07/19 21:04 148/76 07/07/19 21:00 Nasal Cannula 3.0 07/07/19 20:00 3.0 07/07/19 20:00 93 07/07/19 20:00 97.4 95 18 148/76 (100) 96 07/07/19 16:00 97.7 94 18 152/80 (104) 95 07/07/19 16:00 98 07/07/19 16:00 3.0 07/07/19 15:04 160/92 07/07/19 12:00 3.0 07/07/19 12:00 99 07/07/19 12:00 98.4 92 18 160/92 (114) 93 Height (Feet): 5 Height (Inches): 4.00 Weight (Pounds): 135 Laboratory Tests Test 07/08/19 06:55 White Blood Count 8.0 K/UL (4.8-10.8) Red Blood Count 4.78 M/UL (4.20-5.40) Hemoglobin 12.3 G/DL (12.0-16.0) Hematocrit 38.6 % (37.0-47.0) Mean Corpuscular Volume 81 FL (80-99) Mean Corpuscular Hemoglobin 25.7 PG (27.0-31.0) L Mean Corpuscular Hemoglobin Concent 31.8 G/DL (32.0-36.0) L Red Cell Distribution Width 17.0 % (11.6-14.8) H Platelet Count 307 K/UL (150-450) Mean Platelet Volume 5.7 FL (6.5-10.1) L Neutrophils (%) (Auto) 81.9 % (45.0-75.0) H Lymphocytes (%) (Auto) 9.9 % (20.0-45.0) L Monocytes (%) (Auto) 7.6 % (1.0-10.0) Eosinophils (%) (Auto) 0.0 % (0.0-3.0) Basophils (%) (Auto) 0.5 % (0.0-2.0) Sodium Level 144 MMOL/L (136-145) Potassium Level 4.0 MMOL/L (3.5-5.1) Chloride Level 105 MMOL/L (98-107) Carbon Dioxide Level 30 MMOL/L (21-32) Anion Gap 9 mmol/L (5-15) Blood Urea Nitrogen 18 mg/dL (7-18) Creatinine 0.7 MG/DL (0.55-1.30) Estimat Glomerular Filtration Rate > 60 mL/min (>60) Glucose Level 115 MG/DL (74-106) H Calcium Level 9.0 MG/DL (8.5-10.1) Magnesium Level 2.3 MG/DL (1.8-2.4) Total Bilirubin 0.6 MG/DL (0.2-1.0) Aspartate Amino Transf (AST/SGOT) 19 U/L (15-37) Alanine Aminotransferase (ALT/SGPT) 36 U/L (12-78) Alkaline Phosphatase 83 U/L (46-116) Pro-B-Type Natriuretic Peptide 884 pg/mL (0-125) H Total Protein 7.5 G/DL (6.4-8.2) Albumin 3.3 G/DL (3.4-5.0) L Globulin 4.2 g/dL Albumin/Globulin Ratio 0.8 (1.0-2.7) L Current Medications Medications (Trade) Dose Ordered Sig/Dom Route PRN Reason Start Time Stop Time Status Last Admin Dose Admin Acetaminophen (Tylenol) 650 mg Q4H PRN ORAL Mild Pain (Pain Scale 1-3) 07/06/19 17:30 08/03/19 17:29 Albuterol/ Ipratropium (Combivent Respimat) 1 puff Q4HRT INH 07/06/19 19:00 08/03/19 14:59 07/08/19 06:21 Captopril (Capoten) 50 mg EVERY 8 HOURS ORAL 07/07/19 14:45 08/06/19 14:44 07/08/19 05:07 Ceftriaxone Sodium 1 gm/ Dextrose 55 ml @ 110 mls/hr Q24H IVPB 07/07/19 15:00 07/11/19 14:59 07/07/19 15:06 Enoxaparin Sodium (Lovenox) 40 mg DAILY SUBQ 07/07/19 09:00 10/03/19 05:59 07/08/19 09:05 Hydromorphone HCl (Dilaudid) 1 mg Q4H PRN IVP For Pain 07/06/19 21:00 07/11/19 08:59 07/08/19 09:06 Methylprednisolone Sodium Succinate (Solu-MEDROL) 40 mg Q8H IVP 07/06/19 20:00 10/04/19 11:59 07/08/19 05:07 Pantoprazole (Protonix) 40 mg DAILY ORAL 07/07/19 09:00 08/03/19 08:59 07/08/19 09:05 Massiel Alvarez MD July 08, 2019 11:01
[2019-07-08 12:00] VITALS: BP 140/85
[2019-07-08] MEDS: cefTRIAXone 1 GM in D5W 55 ML IVPB SCH (15:03)
[2019-07-08 16:00] VITALS: BP 123/80
--- NOTE | 2019-07-08 17:05 | General Progress Note ---
Assessment/Plan Problem List: (1) COVID-19 ruled out ICD Codes: Z03.818 - Encounter for observation for suspected exposure to other biological agents ruled out SNOMED: 014788847, 115883391 (2) Pneumonia ICD Codes: J18.9 - Pneumonia, unspecified organism SNOMED: 172419341 (3) Respiratory failure ICD Codes: J96.90 - Respiratory failure, unspecified, unspecified whether with hypoxia or hypercapnia SNOMED: 315053500 (4) Acute respiratory failure with hypoxia ICD Codes: J96.01 - Acute respiratory failure with hypoxia SNOMED: 12106651, 771442343 (5) COPD with exacerbation ICD Codes: J44.1 - Chronic obstructive pulmonary disease with (acute) exacerbation SNOMED: 526407773, 175560995 (6) Community acquired pneumonia ICD Codes: J18.9 - Pneumonia, unspecified organism SNOMED: 596307181, 670159783 Qualifiers: Qualified Codes: J18.9 - Pneumonia, unspecified organism Status: stable, progressing Assessment/Plan: o2 via NC. wean as able. iv abx. steroids- wean. cont resp rx. monitor cxr and abg. iv pain rx. dvt prophylaxis. improving Subjective ROS Limited/Unobtainable: No Constitutional: Reports: malaise, weakness HEENT: Reports: no symptoms Cardiovascular: Reports: no symptoms Respiratory: Reports: cough, shortness of breath Gastrointestinal/Abdominal: Reports: no symptoms Genitourinary: Reports: no symptoms Neurologic/Psychiatric: Reports: anxiety, pre-existing deficit Endocrine: Reports: no symptoms Hematologic/Lymphatic: Reports: no symptoms Allergies: Coded Allergies: KETOROLAC TROMETHAMINE (Verified Allergy, Severe, Anaphylaxis, 10/22/18) PENICILLINS (Verified Allergy, Severe, Anaphylaxis, 10/22/18) TETRACYCLINE (Verified Allergy, Severe, Anaphylaxis, 10/22/18) HALOPERIDOL LACTATE (Verified Allergy, Intermediate, Anaphylaxis, 10/22/18) ERYTHROMYCIN BASE (Verified Allergy, Mild, 10/22/18) AMPICILLIN (Verified Allergy, Unknown, 10/22/18) ASPIRIN (Verified Allergy, Unknown, 10/22/18) AZITHROMYCIN (Unverified Allergy, Unknown, 04/17/19) IBUPROFEN (Verified Allergy, Unknown, 10/22/18) NAPROXEN (Verified Allergy, Unknown, 10/22/18) All Systems: reviewed and negative except above Subjective no events. less sob. decreased o2 requirements. no fevers. no chills. c/o pain. cxr improving. still with infiltrates. covid neg x 2 Objective Last 24 Hour Vital Signs Date Time Temp Pulse Resp B/P (MAP) Pulse Ox O2 Delivery O2 Flow Rate FiO2 07/08/19 16:00 84 07/08/19 13:00 140/85 07/08/19 12:00 98.1 70 18 140/85 (103) 97 07/08/19 12:00 80 07/08/19 09:00 Nasal Cannula 3.0 07/08/19 08:00 97 07/08/19 08:00 97.9 83 20 110/68 (82) 98 07/08/19 08:00 3.0 07/08/19 05:07 142/82 07/08/19 04:00 97.4 94 18 142/82 (102) 95 07/08/19 04:00 78 07/08/19 04:00 3.0 07/08/19 00:00 78 07/08/19 00:00 97.2 94 18 134/74 (94) 95 07/07/19 21:04 148/76 07/07/19 21:00 Nasal Cannula 3.0 07/07/19 20:00 3.0 07/07/19 20:00 93 07/07/19 20:00 97.4 95 18 148/76 (100) 96 Intake and Output 07/07/19 07/08/19 19:00 07:00 Intake Total 840 ml 300 ml Output Total 1500 ml Balance 840 ml -1200 ml Intake Oral 840 ml 300 ml Output Urine Total 1500 ml # Voids 3 # Bowel Movements 2 Laboratory Tests 07/08/19 06:55: White Blood Count 8.0, Red Blood Count 4.78, Hemoglobin 12.3, Hematocrit 38.6, Mean Corpuscular Volume 81, Mean Corpuscular Hemoglobin 25.7L, Mean Corpuscular Hemoglobin Concent 31.8L, Red Cell Distribution Width 17.0H, Platelet Count 307 , Mean Platelet Volume 5.7L, Neutrophils (%) (Auto) 81.9H, Lymphocytes (%) (Auto ) 9.9L, Monocytes (%) (Auto) 7.6, Eosinophils (%) (Auto) 0.0, Basophils (%) ( Auto) 0.5, Sodium Level 144, Potassium Level 4.0, Chloride Level 105, Carbon Dioxide Level 30, Anion Gap 9, Blood Urea Nitrogen 18, Creatinine 0.7, Estimat Glomerular Filtration Rate > 60, Glucose Level 115H, Calcium Level 9.0, Magnesium Level 2.3, Total Bilirubin 0.6, Aspartate Amino Transf (AST/SGOT) 19, Alanine Aminotransferase (ALT/SGPT) 36, Alkaline Phosphatase 83, Pro-B-Type Natriuretic Peptide 884H, Total Protein 7.5, Albumin 3.3L, Globulin 4.2, Albumin /Globulin Ratio 0.8L Height (Feet): 5 Height (Inches): 4.00 Weight (Pounds): 135 Objective General Appearance: WD/WN, alert EENT: normal ENT inspection Neck: non-tender, normal alignment, supple Cardiovascular: normal rate, regular rhythm Respiratory/Chest: chest wall non-tender, lungs clear, normal breath sounds, no respiratory distress Abdomen: normal bowel sounds, non tender, soft, no organomegaly, no mass Edema: no edema noted Arm (L), no edema noted Arm (R), no edema noted Leg (L), no edema noted Leg (R), no edema noted Pedal (L), no edema noted Pedal (R), no edema noted Generalized Edema: trace edema 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
--- NOTE | 2019-07-08 17:18 | NUR ---
NURSE NOTES: Per Dr. Stacy, okay to discontinue droplet precaution for COVID negative x 2. Primary RN made aware.
--- NOTE | 2019-07-08 17:49 | NUR ---
*-* INSURANCE *-* ALL CLINICALS AND REVIEWS HAVE BEEN FAXED TO: [facility] [place]# [id number] (HARD COPY AUTH AFTER DISCH) [place]CEY: ZULAY Rendon- [phone] Addendum: 07/09/19 at 1312 by DESIREE BERNABE CM CLINICALS WERE REFAXED
--- NOTE | 2019-07-08 19:37 | NUR ---
HAND-OFF: Report given to Mikayla GUTIERREZ. Patient stable. Plan of care endorsed. manager shift RN to administer 1900 inhaler.
[2019-07-08 20:00] VITALS: BP 160/85
--- NOTE | 2019-07-08 20:00 | NUR ---
NURSE NOTES: Received patient report from BRENDA Foreman. Patient shows no signs of distress or pain at the time. IV intact and patent. Bed in the lowest position, call light within reach, and side rails up x 3. Will continue plan of care.
[2019-07-08] MEDS ORDERED: Solu-MEDROL 40mg Inj IVP SCH (21:00)
[2019-07-09] VITALS (7 sets, daily range): BP systolic 136–159; BP diastolic 66–88
[2019-07-09] MEDS: HYDROmorphone 1mg/ml Carpuject IVP PRN ×6 (01:06→21:33)
[2019-07-09] MEDS: Captopril 25mg tab ORAL SCH ×3 (06:18→21:32)
--- NOTE | 2019-07-09 07:45 | NUR ---
NURSE NOTES: Received report from BRENDA Degroot. Patient is in bed resting, no active s/s cardiac, respiratory distress noticed at this time. Patient AOx4, on 3L oxygen via NC. IV on right EJ 18G, and LFA 22G, asymptomatic, intact, and patent. Bed is in lowest position, call light is within reach, bed alarm on, side rails up x3 and padded. Will continue with the plan of care.
--- NOTE | 2019-07-09 07:51 | NUR ---
HAND-OFF: Report given to BRENDA Mccoy. Patient shows no signs of distress at the time. Endorsed plan of care.
--- NOTE | 2019-07-09 08:35 | Pulmonology Progress Note ---
Subjective ROS Limited/Unobtainable: Yes Constitutional: Denies: fever, chills Gastrointestinal/Abdominal: Reports: nausea; Denies: vomiting, diarrhea Musculoskeletal: Reports: pain Allergies: Coded Allergies: KETOROLAC TROMETHAMINE (Verified Allergy, Severe, Anaphylaxis, 10/22/18) PENICILLINS (Verified Allergy, Severe, Anaphylaxis, 10/22/18) TETRACYCLINE (Verified Allergy, Severe, Anaphylaxis, 10/22/18) HALOPERIDOL LACTATE (Verified Allergy, Intermediate, Anaphylaxis, 10/22/18) ERYTHROMYCIN BASE (Verified Allergy, Mild, 10/22/18) AMPICILLIN (Verified Allergy, Unknown, 10/22/18) ASPIRIN (Verified Allergy, Unknown, 10/22/18) AZITHROMYCIN (Unverified Allergy, Unknown, 04/17/19) IBUPROFEN (Verified Allergy, Unknown, 10/22/18) NAPROXEN (Verified Allergy, Unknown, 10/22/18) All Systems: reviewed and negative except above Subjective remains on 3 liters NC care noted no distress confused steroid taper noted Objective Last 24 Hour Vital Signs Date Time Temp Pulse Resp B/P (MAP) Pulse Ox O2 Delivery O2 Flow Rate FiO2 07/09/19 06:18 140/82 07/09/19 05:29 98.1 07/09/19 04:00 84 07/09/19 04:00 98.8 77 18 140/82 (101) 97 07/09/19 04:00 3.0 07/09/19 00:00 94 07/09/19 00:00 3.0 07/09/19 00:00 98.5 85 17 138/83 (101) 95 07/08/19 22:24 160/85 07/08/19 21:00 Nasal Cannula 3.0 07/08/19 20:00 84 07/08/19 20:00 3.0 07/08/19 20:00 98.1 99 18 160/85 (110) 97 07/08/19 16:00 3.0 07/08/19 16:00 98.1 67 18 123/80 (94) 97 07/08/19 16:00 84 07/08/19 13:00 140/85 07/08/19 12:00 98.1 70 18 140/85 (103) 97 07/08/19 12:00 80 07/08/19 12:00 3.0 07/08/19 09:00 Nasal Cannula 3.0 Intake and Output 07/08/19 07/09/19 19:00 07:00 Intake Total 195 ml 480 ml Output Total 1200 ml Balance -1005 ml 480 ml Intake Oral 140 ml 480 ml IV Total 55 ml Output Urine Total 1200 ml # Voids 3 1 # Bowel Movements 1 2 Objective GENERAL: A well-developed female. on NC oxygen HEENT: Negative. NECK: Supple. LUNGS: reduced breath sounds. Moderate air entry. No significant wheezes. no rhonchi CARDIAC: S1, S2. Regular rate and rhythm. without MRG ABDOMEN: Soft, nontender, nondistended. EXTREMITIES: No cyanosis, clubbing, or edema. NEUROLOGIC: Grossly nonfocal, alert. reviewed and edited HEENT: mucous membranes moist Abdomen: soft, non tender Extremities: no edema Skin: other - skin scars anddepigmentation on scalp & face Neurologic/Psychiatric: alert, oriented x 3, responsive Microbiology Date/Time Source Procedure Growth Status 07/06/19 11:40 Nasopharynx Coronavirus COVID-19 PCR ([facility]) - Final Complete Current Medications Medications (Trade) Dose Ordered Sig/Dom Route PRN Reason Start Time Stop Time Status Last Admin Dose Admin Acetaminophen (Tylenol) 650 mg Q4H PRN ORAL Mild Pain (Pain Scale 1-3) 07/06/19 17:30 08/03/19 17:29 Albuterol/ Ipratropium (Combivent Respimat) 1 puff Q4HRT INH 07/06/19 19:00 08/03/19 14:59 07/09/19 06:19 Captopril (Capoten) 50 mg EVERY 8 HOURS ORAL 07/07/19 14:45 08/06/19 14:44 07/09/19 06:18 Ceftriaxone Sodium 1 gm/ Dextrose 55 ml @ 110 mls/hr Q24H IVPB 07/07/19 15:00 07/11/19 14:59 07/08/19 15:03 Enoxaparin Sodium (Lovenox) 40 mg DAILY SUBQ 07/07/19 09:00 10/03/19 05:59 07/08/19 09:05 Hydromorphone HCl (Dilaudid) 1 mg Q4H PRN IVP For Pain 07/06/19 21:00 5/14/20 08:59 07/09/19 04:59 Methylprednisolone Sodium Succinate (Solu-MEDROL) 40 mg EVERY 12 HOURS IVP 07/08/19 21:00 10/06/19 20:59 07/08/19 20:39 Pantoprazole (Protonix) 40 mg DAILY ORAL 07/07/19 09:00 08/03/19 08:59 07/08/19 09:05 Assessment/Plan Assessment/Plan IMPRESSION: 1. Bilateral infiltrates, negative COVID pneumonia 2. COPD 3. Respiratory insufficiency. 4. History of seizures. 5. Elevated inflammatory markers. 6. Possible sepsis. 7. Hypoxemia PLAN taper oxygen to off- low flow for now acid base follow up respiratory care as is off load antibiotics reviewed taper steroids negative COVID results meds noted optimize follow up imaging- minimal changes noted dc planning soon and hope to dc steroids in am impression, plan, and exam edited and reviewed in detail care discussed with Aquilino Guzman MD July 09, 2019 08:35
--- NOTE | 2019-07-09 08:59 | Progress Note ---
DATE: 07/08/2019 CARDIOLOGY PROGRESS NOTE SUBJECTIVE: Remains on oxygen. Her blood pressure therapy was advanced yesterday. She is off isolation with negative COVID x2. She is less short of breath. Monitored rhythm sinus with arrhythmia and clear PACs. PHYSICAL EXAMINATION: VITAL SIGNS: Blood pressure 110/68 to 140/85, heart rate 70 to 97, respiratory 18 to 20. No fevers. Oxygen saturation on 3 liters 95% to 97%. LUNGS: Few rhonchi. CARDIAC: Regular rhythm and rate. Normal S1 and S2. ABDOMEN: Soft. EXTREMITIES: No edema. LABORATORY DATA: White count 8, hemoglobin 12, sodium 144, potassium 4, bicarb 30, BUN 18, creatinine 0.7. Pro-natriuretic peptide down to 884. IMPRESSION: 1. Respiratory failure, improved. 2. Hypoxia, recovering. 3. Healthcare-associated pneumonia, resolving. 4. COPD with recovering bronchospasm. 5. Acute on chronic diastolic congestive heart failure, improved with decreasing natriuretic peptide assay. 6. Off hydroxychloroquine at this time due to negative COVID swabs. PLAN: 1. Titrate antihypertensives. 2. Taper steroids. 3. Periodic diuresis. 4. Respiratory hygiene. Karl Estes M.D. DR: INEZ JOB#: [id number] CC:
[2019-07-09] MEDS ORDERED: Solu-MEDROL 40mg Inj IVP SCH (09:00)
[2019-07-09] MEDS: Enoxaparin 40mg Inj SUBQ SCH (09:14)
--- NOTE | 2019-07-09 10:27 | Infectious Diseases Prog Note ---
Assessment/Plan Assessment/Plan antibiotics : ceftriaxone A 1. pneumonia COVID 19 test negative 5.7.20, 5.9.20 2. COPD 3. hypertension 4, lupus 5. CVA P 1. continue ceftriaxone 1 more day 2. will follow up cultures 3. d/c isolation Subjective ROS Limited/Unobtainable: Yes Allergies: Coded Allergies: KETOROLAC TROMETHAMINE (Verified Allergy, Severe, Anaphylaxis, 10/22/18) PENICILLINS (Verified Allergy, Severe, Anaphylaxis, 10/22/18) TETRACYCLINE (Verified Allergy, Severe, Anaphylaxis, 10/22/18) HALOPERIDOL LACTATE (Verified Allergy, Intermediate, Anaphylaxis, 10/22/18) ERYTHROMYCIN BASE (Verified Allergy, Mild, 10/22/18) AMPICILLIN (Verified Allergy, Unknown, 10/22/18) ASPIRIN (Verified Allergy, Unknown, 10/22/18) AZITHROMYCIN (Unverified Allergy, Unknown, 04/17/19) IBUPROFEN (Verified Allergy, Unknown, 10/22/18) NAPROXEN (Verified Allergy, Unknown, 10/22/18) Objective Vital Signs Last 24 Hour Vital Signs Date Time Temp Pulse Resp B/P (MAP) Pulse Ox O2 Delivery O2 Flow Rate FiO2 07/09/19 08:00 3.0 07/09/19 08:00 109 07/09/19 08:00 96.7 109 18 138/66 (90) 96 07/09/19 06:18 140/82 07/09/19 05:29 98.1 07/09/19 04:00 84 07/09/19 04:00 98.8 77 18 140/82 (101) 97 07/09/19 04:00 3.0 07/09/19 00:00 94 07/09/19 00:00 3.0 07/09/19 00:00 98.5 85 17 138/83 (101) 95 07/08/19 22:24 160/85 07/08/19 21:00 Nasal Cannula 3.0 07/08/19 20:00 84 07/08/19 20:00 3.0 07/08/19 20:00 98.1 99 18 160/85 (110) 97 07/08/19 16:00 3.0 07/08/19 16:00 98.1 67 18 123/80 (94) 97 07/08/19 16:00 84 07/08/19 13:00 140/85 07/08/19 12:00 98.1 70 18 140/85 (103) 97 07/08/19 12:00 80 07/08/19 12:00 3.0 Height (Feet): 5 Height (Inches): 4.00 Weight (Pounds): 129 Respiratory/Chest: lungs clear Cardiovascular: normal rate, regular rhythm, no gallop/murmur Abdomen: soft, non tender Extremities: no edema Microbiology Date/Time Source Procedure Growth Status 07/06/19 11:40 Nasopharynx Coronavirus COVID-19 PCR ([facility]) - Final Complete Current Medications Medications (Trade) Dose Ordered Sig/Dom Route PRN Reason Start Time Stop Time Status Last Admin Dose Admin Acetaminophen (Tylenol) 650 mg Q4H PRN ORAL Mild Pain (Pain Scale 1-3) 07/06/19 17:30 08/03/19 17:29 Albuterol/ Ipratropium (Combivent Respimat) 1 puff Q4HRT INH 07/06/19 19:00 08/03/19 14:59 07/09/19 06:19 Captopril (Capoten) 50 mg EVERY 8 HOURS ORAL 07/07/19 14:45 08/06/19 14:44 07/09/19 06:18 Ceftriaxone Sodium 1 gm/ Dextrose 55 ml @ 110 mls/hr Q24H IVPB 07/07/19 15:00 07/11/19 14:59 07/08/19 15:03 Enoxaparin Sodium (Lovenox) 40 mg DAILY SUBQ 07/07/19 09:00 10/03/19 05:59 07/09/19 09:14 Hydromorphone HCl (Dilaudid) 1 mg Q4H PRN IVP For Pain 07/06/19 21:00 07/11/19 08:59 07/09/19 09:13 Methylprednisolone Sodium Succinate (Solu-MEDROL) 40 mg DAILY IVP 07/09/19 09:00 10/06/19 20:59 07/09/19 09:13 Pantoprazole (Protonix) 40 mg DAILY ORAL 07/07/19 09:00 08/03/19 08:59 07/09/19 09:12 Massiel Alvarez MD July 09, 2019 10:27
--- NOTE | 2019-07-09 12:21 | NUR ---
CASE MANAGEMENT:REVIEW 07/09/19 SI: ACUTE RESPIRATORY FAILURE BILATERAL PNA. COPD 96.7 109 18 138/66 96% ON 3L/NC IS: IV ROCEPHIN Q24 IV SOLUMEDROL QD DUONEB INH Q4HRS RTC CAPTOPRIL PO Q8HR LOVENOX SQ QD PROTONIX PO QD IV DILAUDID Q4HRS PRN DUONEB HHN Q4HRS RTC : TELEMETRY STATUS DCP: FROM HOME PLAN: TAPERING STEROIDS NEED TO WEAN OXYGEN......IF NOT ABLE...WILL NEED OXYGEN FOR HOME
--- NOTE | 2019-07-09 13:13 | NUR ---
*-* INSURANCE *-* ALL CLINICALS AND REVIEWS HAVE BEEN FAXED TO: [facility]# [id number] NCM: ZULAY Rendon- [phone] [id number] F: [phone]
--- NOTE | 2019-07-09 14:56 | General Progress Note ---
Assessment/Plan Problem List: (1) COVID-19 ruled out ICD Codes: Z03.818 - Encounter for observation for suspected exposure to other biological agents ruled out SNOMED: 716301875, 434902977 (2) Pneumonia ICD Codes: J18.9 - Pneumonia, unspecified organism SNOMED: 498644393 (3) Respiratory failure ICD Codes: J96.90 - Respiratory failure, unspecified, unspecified whether with hypoxia or hypercapnia SNOMED: 599950076 (4) Acute respiratory failure with hypoxia ICD Codes: J96.01 - Acute respiratory failure with hypoxia SNOMED: 72415801, 605801199 (5) COPD with exacerbation ICD Codes: J44.1 - Chronic obstructive pulmonary disease with (acute) exacerbation SNOMED: 894632657, 357361961 (6) Community acquired pneumonia ICD Codes: J18.9 - Pneumonia, unspecified organism SNOMED: 743333611, 440565971 Qualifiers: Qualified Codes: J18.9 - Pneumonia, unspecified organism Status: stable, progressing Assessment/Plan: o2 via NC. wean as able. iv abx. steroids- wean slowly. cont resp rx. monitor cxr and abg. iv pain rx. dvt prophylaxis. improving Subjective ROS Limited/Unobtainable: No Constitutional: Reports: malaise, weakness HEENT: Reports: no symptoms Cardiovascular: Reports: no symptoms Respiratory: Reports: cough, shortness of breath Gastrointestinal/Abdominal: Reports: no symptoms Genitourinary: Reports: no symptoms Neurologic/Psychiatric: Reports: anxiety Endocrine: Reports: no symptoms Hematologic/Lymphatic: Reports: no symptoms Allergies: Coded Allergies: KETOROLAC TROMETHAMINE (Verified Allergy, Severe, Anaphylaxis, 10/22/18) PENICILLINS (Verified Allergy, Severe, Anaphylaxis, 10/22/18) TETRACYCLINE (Verified Allergy, Severe, Anaphylaxis, 10/22/18) HALOPERIDOL LACTATE (Verified Allergy, Intermediate, Anaphylaxis, 10/22/18) ERYTHROMYCIN BASE (Verified Allergy, Mild, 10/22/18) AMPICILLIN (Verified Allergy, Unknown, 10/22/18) ASPIRIN (Verified Allergy, Unknown, 10/22/18) AZITHROMYCIN (Unverified Allergy, Unknown, 04/17/19) IBUPROFEN (Verified Allergy, Unknown, 10/22/18) NAPROXEN (Verified Allergy, Unknown, 10/22/18) All Systems: reviewed and negative except above Subjective no events. less sob but still with significant RODRIGUEZ with minimal activity. decreased o2 requirements. no fevers. no chills. c/o pain. cxr improving. still with infiltrates. covid neg x 2 diffuse wheezing noted. Objective Last 24 Hour Vital Signs Date Time Temp Pulse Resp B/P (MAP) Pulse Ox O2 Delivery O2 Flow Rate FiO2 07/09/19 13:18 136/78 07/09/19 12:00 79 07/09/19 12:00 3.0 07/09/19 12:00 98.6 72 18 136/78 (97) 96 07/09/19 08:00 3.0 07/09/19 08:00 109 07/09/19 08:00 96.7 109 18 138/66 (90) 96 07/09/19 06:18 140/82 07/09/19 05:29 98.1 07/09/19 04:00 84 07/09/19 04:00 98.8 77 18 140/82 (101) 97 07/09/19 04:00 3.0 07/09/19 00:00 94 07/09/19 00:00 3.0 07/09/19 00:00 98.5 85 17 138/83 (101) 95 07/08/19 22:24 160/85 07/08/19 21:00 Nasal Cannula 3.0 07/08/19 20:00 84 07/08/19 20:00 3.0 07/08/19 20:00 98.1 99 18 160/85 (110) 97 07/08/19 16:00 3.0 07/08/19 16:00 98.1 67 18 123/80 (94) 97 07/08/19 16:00 84 Intake and Output 07/08/19 07/09/19 19:00 07:00 Intake Total 195 ml 480 ml Output Total 1200 ml Balance -1005 ml 480 ml Intake Oral 140 ml 480 ml IV Total 55 ml Output Urine Total 1200 ml # Voids 3 1 # Bowel Movements 1 2 Height (Feet): 5 Height (Inches): 4.00 Weight (Pounds): 129 Objective General Appearance: WD/WN, alert EENT: normal ENT inspection Neck: non-tender, normal alignment, supple Cardiovascular: normal rate, regular rhythm Respiratory/Chest: chest wall non-tender, lungs clear, normal breath sounds, no respiratory distress Abdomen: normal bowel sounds, non tender, soft, no organomegaly, no mass Edema: no edema noted Arm (L), no edema noted Arm (R), no edema noted Leg (L), no edema noted Leg (R), no edema noted Pedal (L), no edema noted Pedal (R), no edema noted Generalized Edema: trace edema Neurologic: bottom wheeler II-XII grossly normal, alert, oriented x 3, responsive Skin: rash Flakito Reyes MD July 09, 2019 14:56
[2019-07-09] MEDS: cefTRIAXone 1 GM in D5W 55 ML IVPB SCH (15:51)
--- NOTE | 2019-07-09 19:32 | NUR ---
HAND-OFF: Report given to BRENDA Lopez. Patient is in stable condition.
--- NOTE | 2019-07-09 19:35 | NUR ---
NURSE NOTES: Received report from Adriane Adames RN. Pt in stable condition, denies pain, no signs or symptoms of distress noted at this time. Bed in lowest position, bed alarm armed, call light within reach. Pt instructed to use call light if assistance is needed; verbalized understanding. Will continue plan of care and close monitoring.
[2019-07-10] MEDS: HYDROmorphone 1mg/ml Carpuject IVP PRN ×5 (01:37→21:36)
[2019-07-10 04:00] VITALS: BP 144/83
--- NOTE | 2019-07-10 04:00 | Progress Note ---
DATE: 07/09/2019 CARDIOLOGY PROGRESS NOTE SUBJECTIVE: The patient is less short of breath, but still has shortness of breath with activity. OBJECTIVE: VITAL SIGNS: Blood pressure 136/78, heart rate 79, respiratory rate 18. Monitored rhythm, sinus with atrial ectopy. LUNGS: Coarse breath sounds. Rhonchi. CARDIAC: Regular rhythm and rate. Normal S1, S2. A 1/6 systolic murmur at apex. ABDOMEN: Soft. EXTREMITIES: No edema. IMPRESSION: 1. Respiratory failure with hypoxia, recovering. 2. Healthcare-associated pneumonia, improving. 3. COPD with paroxysmal bronchospasm. 4. Acute on chronic diastolic congestive heart failure, better compensated. PLAN: 1. Antimicrobials. 2. Antipyretics as needed. 3. Bronchodilators. 4. Steroid taper. 5. Titrate antihypertensives. 6. DVT prophylaxis. 7. Diuresis based on clinical parameters. Karl Estes M.D. DR: Jessica JOB#: [id number] CC:
[2019-07-10] MEDS: Captopril 25mg tab ORAL SCH ×3 (05:33→22:43)
--- NOTE | 2019-07-10 07:06 | NUR ---
NURSE NOTES: Received report from BRENDA Lopez. Patient is in bed resting, no active s/s cardiac, respiratory distress noticed at this time. Patient AOx4, on 3L oxygen via NC. IV on right EJ 18G, and LFA 22G, asymptomatic, intact, and patent. Denies any pain at this time. Bed is in lowest position, call light is within reach, bed alarm on, side rails up x3 and padded. Will continue with the plan of care.
--- NOTE | 2019-07-10 07:10 | NUR ---
HAND-OFF: Report given to Adriane Admaes RN. Pt in stable condition, endorsed plan of care.
[2019-07-10 07:31] LABS: BASOPHILS % (AUTO) 0.7 % (0.0-2.0); EOSINOPHILS % (AUTO) 0.3 % (0.0-3.0); HEMATOCRIT 38.6 % (37.0-47.0); HEMOGLOBIN 12.5 G/DL (12.0-16.0); LYMPHOCYTES % (AUTO) 23.5 % (20.0-45.0); MEAN CORPUSCULAR VOLUME 80 FL (80-99); MONOCYTES % (AUTO) 13.2 % (1.0-10.0); NEUTROPHILS % (AUTO) 62.3 % (45.0-75.0); PLATELET COUNT 322 K/UL (150-450); RED BLOOD COUNT 4.83 M/UL (4.20-5.40); WHITE BLOOD COUNT 9.9 K/UL (4.8-10.8)
[2019-07-10 07:55] LABS: ALANINE AMINOTRANSFERASE 28 U/L (12-78); ALBUMIN/GLOBULIN RATIO 0.9 (1.0-2.7); ALKALINE PHOSPHATASE 73 U/L (46-116); ANION GAP 9 mmol/L (5-15); ASPARTATE AMINO TRANSFERASE 15 U/L (15-37); BILIRUBIN,TOTAL 0.4 MG/DL (0.2-1.0); BLOOD UREA NITROGEN 23 mg/dL (7-18); CALCIUM 8.4 MG/DL (8.5-10.1); CARBON DIOXIDE 28 MMOL/L (21-32); CHLORIDE 105 MMOL/L (98-107); POTASSIUM 3.5 MMOL/L (3.5-5.1); SODIUM 142 MMOL/L (136-145)
--- NOTE | 2019-07-10 07:58 | General Progress Note ---
Assessment/Plan Problem List: (1) COVID-19 ruled out ICD Codes: Z03.818 - Encounter for observation for suspected exposure to other biological agents ruled out SNOMED: 929228280, 447114694 (2) Pneumonia ICD Codes: J18.9 - Pneumonia, unspecified organism SNOMED: 019789338 (3) Respiratory failure ICD Codes: J96.90 - Respiratory failure, unspecified, unspecified whether with hypoxia or hypercapnia SNOMED: 981827922 (4) Acute respiratory failure with hypoxia ICD Codes: J96.01 - Acute respiratory failure with hypoxia SNOMED: 37504302, 812131351 (5) COPD with exacerbation ICD Codes: J44.1 - Chronic obstructive pulmonary disease with (acute) exacerbation SNOMED: 381784398, 650056246 (6) Community acquired pneumonia ICD Codes: J18.9 - Pneumonia, unspecified organism SNOMED: 466852795, 455826096 Qualifiers: Qualified Codes: J18.9 - Pneumonia, unspecified organism Status: stable, progressing Assessment/Plan: o2 via NC. wean as able. iv abx. steroids- wean slowly. cont resp rx. monitor cxr and abg. iv pain rx. dvt prophylaxis. improving but not ready for dc Subjective ROS Limited/Unobtainable: No Constitutional: Reports: malaise, weakness HEENT: Reports: no symptoms Cardiovascular: Reports: no symptoms Respiratory: Reports: cough, shortness of breath, wheezing Gastrointestinal/Abdominal: Reports: no symptoms Genitourinary: Reports: no symptoms Neurologic/Psychiatric: Reports: anxiety Endocrine: Reports: no symptoms Hematologic/Lymphatic: Reports: no symptoms Allergies: Coded Allergies: KETOROLAC TROMETHAMINE (Verified Allergy, Severe, Anaphylaxis, 10/22/18) PENICILLINS (Verified Allergy, Severe, Anaphylaxis, 10/22/18) TETRACYCLINE (Verified Allergy, Severe, Anaphylaxis, 10/22/18) HALOPERIDOL LACTATE (Verified Allergy, Intermediate, Anaphylaxis, 10/22/18) ERYTHROMYCIN BASE (Verified Allergy, Mild, 10/22/18) AMPICILLIN (Verified Allergy, Unknown, 10/22/18) ASPIRIN (Verified Allergy, Unknown, 10/22/18) AZITHROMYCIN (Unverified Allergy, Unknown, 04/17/19) IBUPROFEN (Verified Allergy, Unknown, 10/22/18) NAPROXEN (Verified Allergy, Unknown, 10/22/18) All Systems: reviewed and negative except above Subjective no events. still very sob. no fevers or chills. +chest pain- pleuritic. still with diffuse wheezing. taking iv pain meds. cxr still with patchy infiltrates. on iv abx and iv steroids Objective Last 24 Hour Vital Signs Date Time Temp Pulse Resp B/P (MAP) Pulse Ox O2 Delivery O2 Flow Rate FiO2 07/10/19 05:33 144/83 07/10/19 04:00 3.0 07/10/19 04:00 81 07/10/19 04:00 98.2 88 17 144/83 (103) 99 07/10/19 00:00 3.0 07/10/19 00:00 82 07/09/19 23:27 98.1 91 17 159/88 (111) 100 07/09/19 21:32 151/75 07/09/19 21:00 Nasal Cannula 3.0 07/09/19 20:00 77 07/09/19 20:00 97.6 84 15 151/75 (100) 99 07/09/19 20:00 3.0 07/09/19 16:00 3.0 07/09/19 16:00 95 07/09/19 16:00 98.1 95 18 139/82 (101) 97 07/09/19 13:18 136/78 07/09/19 12:00 79 07/09/19 12:00 3.0 07/09/19 12:00 98.6 72 18 136/78 (97) 96 07/09/19 08:00 3.0 07/09/19 08:00 109 07/09/19 08:00 96.7 109 18 138/66 (90) 96 Intake and Output 07/09/19 07/10/19 19:00 07:00 Intake Total 120 ml 480 ml Output Total 1200 ml Balance -1080 ml 480 ml Intake Oral 120 ml 480 ml Output Urine Total 1200 ml # Voids 3 1 # Bowel Movements 2 Laboratory Tests 07/10/19 06:34: White Blood Count 9.9, Red Blood Count 4.83, Hemoglobin 12.5, Hematocrit 38.6, Mean Corpuscular Volume 80, Mean Corpuscular Hemoglobin 25.8L, Mean Corpuscular Hemoglobin Concent 32.2, Red Cell Distribution Width 17.0H, Platelet Count 322, Mean Platelet Volume 5.5L, Neutrophils (%) (Auto) 62.3, Lymphocytes (%) (Auto) 23.5, Monocytes (%) (Auto) 13.2H, Eosinophils (%) (Auto) 0.3, Basophils (%) ( Auto) 0.7, Sodium Level [Pending], Potassium Level [Pending], Chloride Level [ Pending], Carbon Dioxide Level [Pending], Blood Urea Nitrogen [Pending], Creatinine [Pending], Estimat Glomerular Filtration Rate [Pending], Glucose Level [Pending], Calcium Level [Pending], Magnesium Level [Pending], Total Bilirubin [Pending], Aspartate Amino Transf (AST/SGOT) [Pending], Alanine Aminotransferase (ALT/SGPT) [Pending], Alkaline Phosphatase [Pending], Pro-B- Type Natriuretic Peptide [Pending], Total Protein [Pending], Albumin [Pending], Globulin [Pending] Height (Feet): 5 Height (Inches): 4.00 Weight (Pounds): 123 Objective General Appearance: WD/WN, alert EENT: normal ENT inspection Neck: non-tender, normal alignment, supple Cardiovascular: normal rate, regular rhythm Respiratory/Chest: chest wall non-tender, lungs clear, normal breath sounds, no respiratory distress Abdomen: normal bowel sounds, non tender, soft, no organomegaly, no mass Edema: no edema noted Arm (L), no edema noted Arm (R), no edema noted Leg (L), no edema noted Leg (R), no edema noted Pedal (L), no edema noted Pedal (R), no edema noted Generalized Edema: trace edema 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
[2019-07-10 08:00] VITALS: BP 132/78
--- NOTE | 2019-07-10 09:13 | Pulmonology Progress Note ---
Subjective ROS Limited/Unobtainable: No Constitutional: Denies: fever, chills Gastrointestinal/Abdominal: Reports: nausea; Denies: vomiting, diarrhea Musculoskeletal: Reports: pain Allergies: Coded Allergies: KETOROLAC TROMETHAMINE (Verified Allergy, Severe, Anaphylaxis, 10/22/18) PENICILLINS (Verified Allergy, Severe, Anaphylaxis, 10/22/18) TETRACYCLINE (Verified Allergy, Severe, Anaphylaxis, 10/22/18) HALOPERIDOL LACTATE (Verified Allergy, Intermediate, Anaphylaxis, 10/22/18) ERYTHROMYCIN BASE (Verified Allergy, Mild, 10/22/18) AMPICILLIN (Verified Allergy, Unknown, 10/22/18) ASPIRIN (Verified Allergy, Unknown, 10/22/18) AZITHROMYCIN (Unverified Allergy, Unknown, 04/17/19) IBUPROFEN (Verified Allergy, Unknown, 10/22/18) NAPROXEN (Verified Allergy, Unknown, 10/22/18) All Systems: reviewed and negative except above Subjective remains on 3 liters NC care noted no distress no significant bronchospasm Objective Last 24 Hour Vital Signs Date Time Temp Pulse Resp B/P (MAP) Pulse Ox O2 Delivery O2 Flow Rate FiO2 07/10/19 08:00 98.4 105 20 132/78 (96) 97 07/10/19 08:00 3.0 07/10/19 05:33 144/83 07/10/19 04:00 3.0 07/10/19 04:00 81 07/10/19 04:00 98.2 88 17 144/83 (103) 99 07/10/19 00:00 3.0 07/10/19 00:00 82 07/09/19 23:27 98.1 91 17 159/88 (111) 100 07/09/19 21:32 151/75 07/09/19 21:00 Nasal Cannula 3.0 07/09/19 20:00 77 07/09/19 20:00 97.6 84 15 151/75 (100) 99 07/09/19 20:00 3.0 07/09/19 16:00 3.0 07/09/19 16:00 95 07/09/19 16:00 98.1 95 18 139/82 (101) 97 07/09/19 13:18 136/78 07/09/19 12:00 79 07/09/19 12:00 3.0 07/09/19 12:00 98.6 72 18 136/78 (97) 96 Intake and Output 07/09/19 07/10/19 19:00 07:00 Intake Total 120 ml 480 ml Output Total 1200 ml Balance -1080 ml 480 ml Intake Oral 120 ml 480 ml Output Urine Total 1200 ml # Voids 3 1 # Bowel Movements 2 Objective GENERAL: A well-developed female. on NC oxygen HEENT: Negative. NECK: Supple. LUNGS: reduced breath sounds. Moderate air entry. No significant wheezes. no rhonchi CARDIAC: S1, S2. Regular rate and rhythm. without MRG ABDOMEN: Soft, nontender, nondistended. EXTREMITIES: No cyanosis, clubbing, or edema. NEUROLOGIC: Grossly nonfocal, alert. reviewed and edited HEENT: mucous membranes moist Abdomen: soft, non tender Extremities: no edema Skin: other - skin scars anddepigmentation on scalp & face Neurologic/Psychiatric: alert, oriented x 3, responsive Laboratory Tests 07/10/19 06:34: White Blood Count 9.9, Red Blood Count 4.83, Hemoglobin 12.5, Hematocrit 38.6, Mean Corpuscular Volume 80, Mean Corpuscular Hemoglobin 25.8L, Mean Corpuscular Hemoglobin Concent 32.2, Red Cell Distribution Width 17.0H, Platelet Count 322, Mean Platelet Volume 5.5L, Neutrophils (%) (Auto) 62.3, Lymphocytes (%) (Auto) 23.5, Monocytes (%) (Auto) 13.2H, Eosinophils (%) (Auto) 0.3, Basophils (%) ( Auto) 0.7, Sodium Level 142, Potassium Level 3.5, Chloride Level 105, Carbon Dioxide Level 28, Anion Gap 9, Blood Urea Nitrogen 23H, Creatinine 1.0, Estimat Glomerular Filtration Rate > 60, Glucose Level 96, Calcium Level 8.4L, Magnesium Level 2.1, Total Bilirubin 0.4, Aspartate Amino Transf (AST/SGOT) 15, Alanine Aminotransferase (ALT/SGPT) 28, Alkaline Phosphatase 73, Pro-B-Type Natriuretic Peptide 337H, Total Protein 6.5, Albumin 3.0L, Globulin 3.5, Albumin /Globulin Ratio 0.9L Current Medications Medications (Trade) Dose Ordered Sig/Dom Route PRN Reason Start Time Stop Time Status Last Admin Dose Admin Acetaminophen (Tylenol) 650 mg Q4H PRN ORAL Mild Pain (Pain Scale 1-3) 07/06/19 17:30 08/03/19 17:29 Albuterol/ Ipratropium (Combivent Respimat) 1 puff Q4HRT INH 07/06/19 19:00 08/03/19 14:59 07/10/19 07:21 Captopril (Capoten) 50 mg EVERY 8 HOURS ORAL 07/07/19 14:45 08/06/19 14:44 07/10/19 05:33 Ceftriaxone Sodium 1 gm/ Dextrose 55 ml @ 110 mls/hr Q24H IVPB 07/07/19 15:00 07/11/19 14:59 07/09/19 15:51 Enoxaparin Sodium (Lovenox) 40 mg DAILY SUBQ 07/07/19 09:00 10/03/19 05:59 07/09/19 09:14 Hydromorphone HCl (Dilaudid) 1 mg Q4H PRN IVP For Pain 07/06/19 21:00 07/11/19 08:59 07/10/19 01:37 Methylprednisolone Sodium Succinate (Solu-MEDROL) 40 mg DAILY IVP 07/09/19 09:00 10/06/19 20:59 07/09/19 09:13 Pantoprazole (Protonix) 40 mg DAILY ORAL 07/07/19 09:00 08/03/19 08:59 07/09/19 09:12 Assessment/Plan Assessment/Plan IMPRESSION: 1. Bilateral infiltrates, negative COVID pneumonia 2. COPD 3. Respiratory insufficiency. 4. History of seizures. 5. Elevated inflammatory markers. 6. Possible sepsis. 7. Hypoxemia PLAN taper oxygen to off- low flow for now acid base follow up respiratory care as is off load antibiotics reviewed dc steroids and monitor negative COVID results meds noted optimize follow up imaging- minimal changes noted dc planning soon and hope to dc steroids in am impression, plan, and exam edited and reviewed in detail care discussed with Aquilino Guzman MD July 10, 2019 09:13
[2019-07-10] MEDS: Enoxaparin 40mg Inj SUBQ SCH (09:28)
--- NOTE | 2019-07-10 10:10 | Infectious Diseases Prog Note ---
Assessment/Plan Assessment/Plan antibiotics : ceftriaxone A 1. pneumonia s/p rx COVID 19 test negative 5.7.20, 5.9.20 2. COPD 3. hypertension 4, lupus 5. CVA P 1. d/c ceftriaxone 2. observe off antibiotics Subjective ROS Limited/Unobtainable: Yes Allergies: Coded Allergies: KETOROLAC TROMETHAMINE (Verified Allergy, Severe, Anaphylaxis, 10/22/18) PENICILLINS (Verified Allergy, Severe, Anaphylaxis, 10/22/18) TETRACYCLINE (Verified Allergy, Severe, Anaphylaxis, 10/22/18) HALOPERIDOL LACTATE (Verified Allergy, Intermediate, Anaphylaxis, 10/22/18) ERYTHROMYCIN BASE (Verified Allergy, Mild, 10/22/18) AMPICILLIN (Verified Allergy, Unknown, 10/22/18) ASPIRIN (Verified Allergy, Unknown, 10/22/18) AZITHROMYCIN (Unverified Allergy, Unknown, 04/17/19) IBUPROFEN (Verified Allergy, Unknown, 10/22/18) NAPROXEN (Verified Allergy, Unknown, 10/22/18) Objective Vital Signs Last 24 Hour Vital Signs Date Time Temp Pulse Resp B/P (MAP) Pulse Ox O2 Delivery O2 Flow Rate FiO2 07/10/19 08:00 98.4 105 20 132/78 (96) 97 07/10/19 08:00 3.0 07/10/19 08:00 89 07/10/19 05:33 144/83 07/10/19 04:00 3.0 07/10/19 04:00 81 07/10/19 04:00 98.2 88 17 144/83 (103) 99 07/10/19 00:00 3.0 07/10/19 00:00 82 07/09/19 23:27 98.1 91 17 159/88 (111) 100 07/09/19 21:32 151/75 07/09/19 21:00 Nasal Cannula 3.0 07/09/19 20:00 77 07/09/19 20:00 97.6 84 15 151/75 (100) 99 07/09/19 20:00 3.0 07/09/19 16:00 3.0 07/09/19 16:00 95 07/09/19 16:00 98.1 95 18 139/82 (101) 97 07/09/19 13:18 136/78 07/09/19 12:00 79 07/09/19 12:00 3.0 07/09/19 12:00 98.6 72 18 136/78 (97) 96 Height (Feet): 5 Height (Inches): 4.00 Weight (Pounds): 123 Respiratory/Chest: lungs clear Cardiovascular: normal rate, regular rhythm, no gallop/murmur Abdomen: soft, non tender Extremities: no edema Laboratory Tests Test 07/10/19 06:34 White Blood Count 9.9 K/UL (4.8-10.8) Red Blood Count 4.83 M/UL (4.20-5.40) Hemoglobin 12.5 G/DL (12.0-16.0) Hematocrit 38.6 % (37.0-47.0) Mean Corpuscular Volume 80 FL (80-99) Mean Corpuscular Hemoglobin 25.8 PG (27.0-31.0) L Mean Corpuscular Hemoglobin Concent 32.2 G/DL (32.0-36.0) Red Cell Distribution Width 17.0 % (11.6-14.8) H Platelet Count 322 K/UL (150-450) Mean Platelet Volume 5.5 FL (6.5-10.1) L Neutrophils (%) (Auto) 62.3 % (45.0-75.0) Lymphocytes (%) (Auto) 23.5 % (20.0-45.0) Monocytes (%) (Auto) 13.2 % (1.0-10.0) H Eosinophils (%) (Auto) 0.3 % (0.0-3.0) Basophils (%) (Auto) 0.7 % (0.0-2.0) Sodium Level 142 MMOL/L (136-145) Potassium Level 3.5 MMOL/L (3.5-5.1) Chloride Level 105 MMOL/L (98-107) Carbon Dioxide Level 28 MMOL/L (21-32) Anion Gap 9 mmol/L (5-15) Blood Urea Nitrogen 23 mg/dL (7-18) H Creatinine 1.0 MG/DL (0.55-1.30) Estimat Glomerular Filtration Rate > 60 mL/min (>60) Glucose Level 96 MG/DL (74-106) Calcium Level 8.4 MG/DL (8.5-10.1) L Magnesium Level 2.1 MG/DL (1.8-2.4) Total Bilirubin 0.4 MG/DL (0.2-1.0) Aspartate Amino Transf (AST/SGOT) 15 U/L (15-37) Alanine Aminotransferase (ALT/SGPT) 28 U/L (12-78) Alkaline Phosphatase 73 U/L (46-116) Pro-B-Type Natriuretic Peptide 337 pg/mL (0-125) H Total Protein 6.5 G/DL (6.4-8.2) Albumin 3.0 G/DL (3.4-5.0) L Globulin 3.5 g/dL Albumin/Globulin Ratio 0.9 (1.0-2.7) L Current Medications Medications (Trade) Dose Ordered Sig/Dom Route PRN Reason Start Time Stop Time Status Last Admin Dose Admin Acetaminophen (Tylenol) 650 mg Q4H PRN ORAL Mild Pain (Pain Scale 1-3) 07/06/19 17:30 08/03/19 17:29 Albuterol/ Ipratropium (Combivent Respimat) 1 puff Q4HRT INH 07/06/19 19:00 08/03/19 14:59 07/10/19 07:21 Captopril (Capoten) 50 mg EVERY 8 HOURS ORAL 07/07/19 14:45 08/06/19 14:44 07/10/19 05:33 Ceftriaxone Sodium 1 gm/ Dextrose 55 ml @ 110 mls/hr Q24H IVPB 07/07/19 15:00 07/11/19 14:59 07/09/19 15:51 Enoxaparin Sodium (Lovenox) 40 mg DAILY SUBQ 07/07/19 09:00 10/03/19 05:59 07/10/19 09:28 Hydromorphone HCl (Dilaudid) 1 mg Q4H PRN IVP For Pain 07/06/19 21:00 07/11/19 08:59 07/10/19 09:29 Pantoprazole (Protonix) 40 mg DAILY ORAL 07/07/19 09:00 08/03/19 08:59 07/10/19 09:27 Massiel Alvarez MD July 10, 2019 10:10
[2019-07-10 12:20] VITALS: BP 114/77
--- NOTE | 2019-07-10 13:12 | NUR ---
RD ASSESSMENT & RECOMMENDATIONS SEE CARE ACTIVITY FOR COMPLETE ASSESSMENT DAILY ESTIMATED NEEDS: Needs based on Pulmonary 56kg 25-30 kcals/kg 6209-3692 total kcals 1-1.5 g protein/kg 56-84 g total protein Fluid per MD NUTRITION DIAGNOSIS: Altered nutrition related lab values r/t elev BUN (23), elev BNP(337, trend down). PO DIET RECOMMENDATIONS: Maintain Regular diet ADDITIONAL RECOMMENDATIONS: 1) Pt presents w/ possible 18# wt loss from adm w/ daily wts ->rec to obtain a STANDING weight as able ->Or calibrated bed scale wt 2) Monitor BG if on solumedrol
--- NOTE | 2019-07-10 14:50 | NUR ---
*-* INSURANCE *-* ALL CLINICALS AND REVIEWS HAVE BEEN FAXED TO: [facility] [place] [facility]# [id number] NCM: ZULAY Rendon- [phone] [id number] F: [phone]
--- NOTE | 2019-07-10 15:41 | NUR ---
CASE MANAGEMENT:REVIEW 07/10/19 SI: ACUTE RESPIRATORY FAILURE BILATERAL PNA. COPD COVID NEGATIVE X2 98.4 105 20 132/78 97% ON 3L/NC BUN+23 IS: CAPTOPRIL PO Q8HR LOVENOX SQ QD PROTONIX PO QD IV DILAUDID Q4HRS PRN DUONEB HHN Q4HRS RTC : TELEMETRY STATUS DCP: FROM HOME PLAN: TAPERING STEROIDS NEED TO WEAN OXYGEN......IF NOT ABLE...WILL NEED OXYGEN FOR HOME REPEAT CHEST XRAY IN AM
[2019-07-10 16:00] VITALS: BP 119/82
--- NOTE | 2019-07-10 19:27 | NUR ---
HAND-OFF: Report given to Betty. Endorsed the plan of care. Patient is in stable condition.
[2019-07-10 20:00] VITALS: BP 131/78
--- NOTE | 2019-07-10 20:00 | NUR ---
NURSE NOTES: RECEIVED PATIENT LYING IN BED, AWAKE, ALERT/ORIENTED X4, EYES CLOSED, APPEAR TO BE ASLEEP, AWAKENED TO NAME. VERBALLY RESPONSIVE, INQUIRING ABOUT SCHEDULE FOR PAIN MEDICATION, BOARD UPDATED-NO SIGNS AND SYMPTOMS OF ACUTE CARDIO RESPIRATORY DISTRESS/SHORTNESS OF BREATH, DENIES CHEST PAIN. NO COMPLAINTS OF GI DISCOMFORT, NO N/V/D. SIDE RAILS UP X2 FOR MOBILITY, BED IN LOWEST POSITION FOR SAFETY. ENCOURAGED PATIENT TO UTILIZE CALL LIGHT FOR ASSISTANCE, VERBALIZED UNDERSTANDING. CONTINUE WITH CURRENT PLAN OF CARE. NAD.
[2019-07-11] VITALS: BP 105/60
[2019-07-11] MEDS: HYDROmorphone 1mg/ml Carpuject IVP PRN ×6 (01:41→22:01)
[2019-07-11 04:00] VITALS: BP 110/62
[2019-07-11] MEDS: Captopril 25mg tab ORAL SCH ×3 (05:56→22:00)
--- NOTE | 2019-07-11 06:00 | Progress Note ---
DATE: 07/10/2019 CARDIOLOGY PROGRESS NOTE SUBJECTIVE: The patient is still very short of breath, congested. Chest x-ray reveals patchy infiltrates. She remains on IV antimicrobials as well as steroid. Monitored rhythm sinus with atrial ectopy. OBJECTIVE: VITAL SIGNS: Blood pressure 144/83, heart rate 88, respiratory rate 17, she is afebrile. LUNGS: Bilateral breath sounds. Rhonchi, few rales. HEART: Regular rate and rhythm. Normal S1 and S2. No new murmur. ABDOMEN: Soft. EXTREMITIES: Trace dependent edema. LABORATORY DATA: White count 10, hemoglobin 12.5. Potassium 3.5. Magnesium 2.1. Albumin 3.0. Natriuretic peptide down to 337. IMPRESSION: 1. Immunosuppressive state. 2. Pneumonia. 3. Hypoxemia. 4. Acute on chronic diastolic congestive heart failure, improved. 5. Hypertensive heart disease. 6. Borderline potassium level. PLAN: 1. DVT prophylaxis. 2. Antimicrobials. 3. Respiratory hygiene. 4. Maintenance diuretic therapy and antihypertensives. Karl Estes M.D. DR: Romel JOB#: [id number] CC:
--- NOTE | 2019-07-11 06:26 | NUR ---
NURSE NOTES: RESTED WELL, NO SIGNIFICANT CHANGE OF CONDITION NOTED THROUGHOUT THE NIGHT. SAFETY MAINTAINED. NAD.
--- NOTE | 2019-07-11 07:29 | NUR ---
HAND-OFF: Report given to BRENDA DAVALOS.
--- NOTE | 2019-07-11 07:30 | NUR ---
NURSE NOTES: Received report from BRENDA Vogel. Pt is awake and alert. pt has intact iv access SL. Pt is on continues heart monitoring. no complain of pain at this moment. all needs attended, bed is locked and is in the lowest position. call light within easy reach. will continue to monitor.
[2019-07-11 08:00] VITALS: BP 131/75
--- NOTE | 2019-07-11 08:57 | Pulmonology Progress Note ---
Subjective ROS Limited/Unobtainable: Yes Constitutional: Denies: fever, chills Gastrointestinal/Abdominal: Reports: nausea; Denies: vomiting, diarrhea Musculoskeletal: Reports: pain Allergies: Coded Allergies: KETOROLAC TROMETHAMINE (Verified Allergy, Severe, Anaphylaxis, 10/22/18) PENICILLINS (Verified Allergy, Severe, Anaphylaxis, 10/22/18) TETRACYCLINE (Verified Allergy, Severe, Anaphylaxis, 10/22/18) HALOPERIDOL LACTATE (Verified Allergy, Intermediate, Anaphylaxis, 10/22/18) ERYTHROMYCIN BASE (Verified Allergy, Mild, 10/22/18) AMPICILLIN (Verified Allergy, Unknown, 10/22/18) ASPIRIN (Verified Allergy, Unknown, 10/22/18) AZITHROMYCIN (Unverified Allergy, Unknown, 04/17/19) IBUPROFEN (Verified Allergy, Unknown, 10/22/18) NAPROXEN (Verified Allergy, Unknown, 10/22/18) All Systems: reviewed and negative except above Subjective remains on 3 liters NC care noted no distress no significant bronchospasm Objective Last 24 Hour Vital Signs Date Time Temp Pulse Resp B/P (MAP) Pulse Ox O2 Delivery O2 Flow Rate FiO2 07/11/19 06:12 97.8 07/11/19 05:56 121/85 07/11/19 04:00 3.0 07/11/19 04:00 85 07/11/19 04:00 98.5 69 18 110/62 (78) 92 07/11/19 00:00 3.0 07/11/19 00:00 82 07/11/19 00:00 97.8 60 16 105/60 (75) 93 07/10/19 22:43 123/74 07/10/19 21:00 Nasal Cannula 3.0 07/10/19 20:00 3.0 07/10/19 20:00 97.5 101 16 131/78 (95) 96 07/10/19 20:00 95 07/10/19 16:00 3.0 07/10/19 16:00 96 07/10/19 16:00 98.5 98 20 119/82 (94) 95 07/10/19 13:30 114/77 07/10/19 12:20 3.0 07/10/19 12:20 98.9 93 18 114/77 (89) 95 07/10/19 12:00 93 Intake and Output 07/10/19 07/11/19 19:00 07:00 Intake Total 360 ml 420 ml Balance 360 ml 420 ml Intake Oral 360 ml 420 ml # Voids 3 3 # Bowel Movements 2 Objective GENERAL: A well-developed female. on NC oxygen HEENT: Negative. NECK: Supple. LUNGS: reduced breath sounds. Moderate air entry. No significant wheezes. no rhonchi CARDIAC: S1, S2. Regular rate and rhythm. without MRG ABDOMEN: Soft, nontender, nondistended. EXTREMITIES: No cyanosis, clubbing, or edema. NEUROLOGIC: Grossly nonfocal, alert. reviewed and edited HEENT: mucous membranes moist Abdomen: soft, non tender Extremities: no edema Skin: other - skin scars anddepigmentation on scalp & face Neurologic/Psychiatric: alert, oriented x 3, responsive Current Medications Medications (Trade) Dose Ordered Sig/Dom Route PRN Reason Start Time Stop Time Status Last Admin Dose Admin Acetaminophen (Tylenol) 650 mg Q4H PRN ORAL Mild Pain (Pain Scale 1-3) 07/06/19 17:30 08/03/19 17:29 Albuterol/ Ipratropium (Combivent Respimat) 1 puff Q4HRT INH 07/06/19 19:00 08/03/19 14:59 07/11/19 07:02 Captopril (Capoten) 50 mg EVERY 8 HOURS ORAL 07/07/19 14:45 08/06/19 14:44 07/11/19 05:56 Enoxaparin Sodium (Lovenox) 40 mg DAILY SUBQ 07/07/19 09:00 10/03/19 05:59 07/10/19 09:28 Hydromorphone HCl (Dilaudid) 1 mg Q4H PRN IVP For Pain 07/06/19 21:00 07/11/19 08:59 07/11/19 05:42 Pantoprazole (Protonix) 40 mg DAILY ORAL 07/07/19 09:00 08/03/19 08:59 07/10/19 09:27 Assessment/Plan Assessment/Plan IMPRESSION: 1. Bilateral infiltrates, negative COVID pneumonia 2. COPD 3. Respiratory insufficiency. 4. History of seizures. 5. Elevated inflammatory markers. 6. Possible sepsis. 7. Hypoxemia PLAN taper oxygen to off- low flow for now acid base follow up respiratory care as is off load antibiotics reviewed dc steroids and monitor negative COVID results meds noted optimize follow up imaging- minimal changes noted dc planning soon and hope to dc steroids in am impression, plan, and exam edited and reviewed in detail care discussed with Aquilino Guzman MD July 11, 2019 08:57
[2019-07-11] MEDS: Enoxaparin 40mg Inj SUBQ SCH (09:40)
[2019-07-11] MEDS ORDERED: HYDROmorphone 1mg/ml Carpuject IVP PRN (09:45)
--- NOTE | 2019-07-11 10:10 | NUR ---
RADIOLOGY DEPT.,CHEST X-RAY DONE.-P.DYE
--- NOTE | 2019-07-11 11:46 | NUR ---
CASE MANAGEMENT:REVIEW 07/11/19 SI: ACUTE RESPIRATORY FAILURE BILATERAL PNA. COPD COVID NEGATIVE X2 98.2 96 20 131/75 98% ON 3L/NC IS: CAPTOPRIL PO Q8HR LOVENOX SQ QD PROTONIX PO QD IV DILAUDID Q4HRS PRN DUONEB HHN Q4HRS RTC : TELEMETRY STATUS DCP: FROM HOME PLAN: TAPERING STEROIDS NEED TO WEAN OXYGEN......IF NOT ABLE...WILL NEED OXYGEN FOR HOME CXR RESULTS PENDING
--- NOTE | 2019-07-11 11:51 | NUR ---
DISCHARGE PLANNING COVID NEGATIVE PATIENT IS FROM HOME CURRENTLY ON 3L/NC......REQUESTED NURSING TO WEAN TOLERATED NEIGHBORHOOD AIDE NEEDS TO KNOW IF PATIENT WILL NEED HOME OXYGEN. IF SO, IT NEEDS TO BE ORDERED
[2019-07-11 12:00] VITALS: BP 119/79
--- NOTE | 2019-07-11 12:02 | Infectious Diseases Prog Note ---
Assessment/Plan Assessment/Plan A 1. pneumonia COVID19 negative on 5.7.20 & 59 2. COPD 3. hypertension 4, lupus 5. CVA P 1. Observe off antibiotic Subjective ROS Limited/Unobtainable: No Constitutional: Reports: no symptoms Respiratory: Reports: no symptoms Gastrointestinal/Abdominal: Reports: no symptoms Genitourinary: Reports: no symptoms Allergies: Coded Allergies: KETOROLAC TROMETHAMINE (Verified Allergy, Severe, Anaphylaxis, 10/22/18) PENICILLINS (Verified Allergy, Severe, Anaphylaxis, 10/22/18) TETRACYCLINE (Verified Allergy, Severe, Anaphylaxis, 10/22/18) HALOPERIDOL LACTATE (Verified Allergy, Intermediate, Anaphylaxis, 10/22/18) ERYTHROMYCIN BASE (Verified Allergy, Mild, 10/22/18) AMPICILLIN (Verified Allergy, Unknown, 10/22/18) ASPIRIN (Verified Allergy, Unknown, 10/22/18) AZITHROMYCIN (Unverified Allergy, Unknown, 04/17/19) IBUPROFEN (Verified Allergy, Unknown, 10/22/18) NAPROXEN (Verified Allergy, Unknown, 10/22/18) Objective Vital Signs Last 24 Hour Vital Signs Date Time Temp Pulse Resp B/P (MAP) Pulse Ox O2 Delivery O2 Flow Rate FiO2 07/11/19 08:00 3.0 07/11/19 08:00 98.2 96 20 131/75 (93) 98 07/11/19 07:28 90 07/11/19 06:12 97.8 07/11/19 05:56 121/85 07/11/19 04:00 3.0 07/11/19 04:00 85 07/11/19 04:00 98.5 69 18 110/62 (78) 92 07/11/19 00:00 3.0 07/11/19 00:00 82 07/11/19 00:00 97.8 60 16 105/60 (75) 93 07/10/19 22:43 123/74 07/10/19 21:00 Nasal Cannula 3.0 07/10/19 20:00 3.0 07/10/19 20:00 97.5 101 16 131/78 (95) 96 07/10/19 20:00 95 07/10/19 16:00 3.0 07/10/19 16:00 96 07/10/19 16:00 98.5 98 20 119/82 (94) 95 07/10/19 13:30 114/77 07/10/19 12:20 3.0 07/10/19 12:20 98.9 93 18 114/77 (89) 95 Height (Feet): 5 Height (Inches): 4.00 Weight (Pounds): 120 General Appearance: no acute distress HEENT: mucous membranes moist Respiratory/Chest: decreased breath sounds Cardiovascular: normal rate Abdomen: soft, non tender Extremities: no edema Skin: other - depigmentation in scalp & face Neurologic/Psychiatric: alert, oriented x 3, responsive Current Medications Medications (Trade) Dose Ordered Sig/Dom Route PRN Reason Start Time Stop Time Status Last Admin Dose Admin Acetaminophen (Tylenol) 650 mg Q4H PRN ORAL Mild Pain (Pain Scale 1-3) 07/06/19 17:30 08/03/19 17:29 Albuterol/ Ipratropium (Combivent Respimat) 1 puff Q4HRT INH 07/06/19 19:00 08/03/19 14:59 07/11/19 11:37 Captopril (Capoten) 50 mg EVERY 8 HOURS ORAL 07/07/19 14:45 08/06/19 14:44 07/11/19 05:56 Enoxaparin Sodium (Lovenox) 40 mg DAILY SUBQ 07/07/19 09:00 10/03/19 05:59 07/11/19 09:40 Hydromorphone HCl (Dilaudid) 1 mg Q4H PRN IVP PAIN 4-10 07/11/19 09:53 07/18/19 09:52 07/11/19 09:55 Pantoprazole (Protonix) 40 mg DAILY ORAL 07/07/19 09:00 08/03/19 08:59 07/11/19 09:39 Polo Muñoz MD July 11, 2019 12:02
--- NOTE | 2019-07-11 12:02 | NUR ---
Patient is on Room Air, ambulating around , from bed to bath room, from room to Nurses Station on Room Air, No signs of shortness of breath. O2 sat.=97% on Room Air.
--- NOTE | 2019-07-11 14:16 | NUR ---
*-* INSURANCE *-* ALL CLINICALS AND REVIEWS HAVE BEEN [place]ED TO: [facility] [place] [id number] NCM: ZULAY Rendon- [phone] [id number] F: [phone]
--- NOTE | 2019-07-11 15:05 | General Progress Note ---
Assessment/Plan Problem List: (1) COVID-19 ruled out ICD Codes: Z03.818 - Encounter for observation for suspected exposure to other biological agents ruled out SNOMED: 324728156, 349935541 (2) Pneumonia ICD Codes: J18.9 - Pneumonia, unspecified organism SNOMED: 920461247 (3) Respiratory failure ICD Codes: J96.90 - Respiratory failure, unspecified, unspecified whether with hypoxia or hypercapnia SNOMED: 911463620 (4) Acute respiratory failure with hypoxia ICD Codes: J96.01 - Acute respiratory failure with hypoxia SNOMED: 87487598, 345566376 (5) COPD with exacerbation ICD Codes: J44.1 - Chronic obstructive pulmonary disease with (acute) exacerbation SNOMED: 004930544, 626461000 (6) Community acquired pneumonia ICD Codes: J18.9 - Pneumonia, unspecified organism SNOMED: 209119980, 718643108 Qualifiers: Qualified Codes: J18.9 - Pneumonia, unspecified organism Status: stable, progressing Assessment/Plan: o2 via NC. wean as able. iv abx. steroids- wean slowly. cont resp rx. monitor cxr and abg. iv pain rx. dvt prophylaxis. prn diuresis per cards. dc planning tomorrow. will need home o2 Subjective ROS Limited/Unobtainable: No Constitutional: Reports: malaise, weakness HEENT: Reports: no symptoms Cardiovascular: Reports: chest pain Respiratory: Reports: cough, shortness of breath, wheezing Gastrointestinal/Abdominal: Reports: no symptoms Genitourinary: Reports: no symptoms Neurologic/Psychiatric: Reports: anxiety, emotional problems Endocrine: Reports: no symptoms Hematologic/Lymphatic: Reports: anemia Allergies: Coded Allergies: KETOROLAC TROMETHAMINE (Verified Allergy, Severe, Anaphylaxis, 10/22/18) PENICILLINS (Verified Allergy, Severe, Anaphylaxis, 10/22/18) TETRACYCLINE (Verified Allergy, Severe, Anaphylaxis, 10/22/18) HALOPERIDOL LACTATE (Verified Allergy, Intermediate, Anaphylaxis, 10/22/18) ERYTHROMYCIN BASE (Verified Allergy, Mild, 10/22/18) AMPICILLIN (Verified Allergy, Unknown, 10/22/18) ASPIRIN (Verified Allergy, Unknown, 10/22/18) AZITHROMYCIN (Unverified Allergy, Unknown, 04/17/19) IBUPROFEN (Verified Allergy, Unknown, 10/22/18) NAPROXEN (Verified Allergy, Unknown, 10/22/18) All Systems: reviewed and negative except above Subjective slow improvement. less sob than yesterday. no fever or chills. decreased cough. +pleuritic CP. pulm and cards appreciated. on iv steroids daily per pulm. still on 3L NC. Does not have o2 at home. has caregiver at home. Objective Last 24 Hour Vital Signs Date Time Temp Pulse Resp B/P (MAP) Pulse Ox O2 Delivery O2 Flow Rate FiO2 07/11/19 13:53 119/79 07/11/19 12:00 98.1 81 19 119/79 (92) 97 07/11/19 12:00 3.0 07/11/19 11:36 87 07/11/19 08:00 3.0 07/11/19 08:00 98.2 96 20 131/75 (93) 98 07/11/19 07:28 90 07/11/19 06:12 97.8 07/11/19 05:56 121/85 07/11/19 04:00 3.0 07/11/19 04:00 85 07/11/19 04:00 98.5 69 18 110/62 (78) 92 07/11/19 00:00 3.0 07/11/19 00:00 82 07/11/19 00:00 97.8 60 16 105/60 (75) 93 07/10/19 22:43 123/74 07/10/19 21:00 Nasal Cannula 3.0 07/10/19 20:00 3.0 07/10/19 20:00 97.5 101 16 131/78 (95) 96 07/10/19 20:00 95 07/10/19 16:00 3.0 07/10/19 16:00 96 07/10/19 16:00 98.5 98 20 119/82 (94) 95 Intake and Output 07/10/19 07/11/19 19:00 07:00 Intake Total 360 ml 420 ml Balance 360 ml 420 ml Intake Oral 360 ml 420 ml # Voids 3 3 # Bowel Movements 2 Height (Feet): 5 Height (Inches): 4.00 Weight (Pounds): 120 Objective General Appearance: WD/WN, alert EENT: normal ENT inspection Neck: non-tender, normal alignment, supple Cardiovascular: normal rate, regular rhythm Respiratory/Chest: chest wall non-tender, lungs clear, normal breath sounds, no respiratory distress Abdomen: normal bowel sounds, non tender, soft, no organomegaly, no mass Edema: no edema noted Arm (L), no edema noted Arm (R), no edema noted Leg (L), no edema noted Leg (R), no edema noted Pedal (L), no edema noted Pedal (R), no edema noted Generalized Edema: trace edema Neurologic: professional housing consultant II-XII grossly normal, alert, oriented x 3, responsive Skin: rash Flakito Reyes MD July 11, 2019 15:05
[2019-07-11 16:00] VITALS: BP 112/67
--- NOTE | 2019-07-11 19:40 | NUR ---
HAND-OFF: Report given to Hui GUTIERREZ. Pt is sleeping and stable.
--- NOTE | 2019-07-11 19:41 | NUR ---
NURSE NOTES: Received report from BRENDA Benito. Patient is awake, alert and oriented x 3-4. Patient is on regular diet. assembler and tester electronics is in placed, shows sinus rhythm, no chest pain at this time. On room air with no shortness or difficulty of breathing reported, saturating 97%. IV site is on left forearm g-18 and right IJ g-18 saline lock that is patent and intact. On fall and seizure precaution, padded side rails. Safety measures are in placed, bed in lowest and lock position. Call light and bedside table within reach, instructed to call for any assistance needed. Will continue plan of care.
[2019-07-11 20:00] VITALS: BP 140/92
[2019-07-12] VITALS: BP 132/81
--- NOTE | 2019-07-12 00:45 | Progress Note ---
DATE: 07/11/2019 CARDIOLOGY PROGRESS NOTE SUBJECTIVE: The patient has less congestion and cough. Chest pain noted with cough only. On low-flow oxygen. PHYSICAL EXAMINATION: VITAL SIGNS: Saturating 97%, blood pressure 119/79, heart rate 81, respiratory 19. No fevers. LUNGS: Few rhonchi. CARDIAC: Regular rhythm and rate. Normal S1, S2 with no new murmur. ABDOMEN: Soft. EXTREMITIES: No edema. IMPRESSION: 1. Healthcare-associated pneumonia. 2. Hypoxia. 3. Acute on chronic diastolic congestive heart failure, mostly compensated now. 4. Corrected . 5. Hypertensive heart disease with controlled blood pressure. PLAN: Continue current cardiovascular regimen. Home oxygen therapy. Respiratory hygiene. No additional cardiovascular interventions presently planned. We will follow. Karl Estes M.D. DR: REILLY JOB#: [id number] CC:
[2019-07-12] MEDS: HYDROmorphone 1mg/ml Carpuject IVP PRN ×3 (02:02→10:08)
[2019-07-12 04:00] VITALS: BP 110/61
[2019-07-12] MEDS: Captopril 25mg tab ORAL SCH (05:19)
--- NOTE | 2019-07-12 07:42 | NUR ---
HAND-OFF: Report given to BRENDA Quinonez. Patient is in stable condition, no chest pain or desaturation noted at this time. Plan of care endorsed.
[2019-07-12 08:27] VITALS: BP 151/71
--- NOTE | 2019-07-12 08:45 | Pulmonology Progress Note ---
Subjective ROS Limited/Unobtainable: No Constitutional: Reports: no symptoms Gastrointestinal/Abdominal: Reports: no symptoms Musculoskeletal: Reports: pain Allergies: Coded Allergies: KETOROLAC TROMETHAMINE (Verified Allergy, Severe, Anaphylaxis, 10/22/18) PENICILLINS (Verified Allergy, Severe, Anaphylaxis, 10/22/18) TETRACYCLINE (Verified Allergy, Severe, Anaphylaxis, 10/22/18) HALOPERIDOL LACTATE (Verified Allergy, Intermediate, Anaphylaxis, 10/22/18) ERYTHROMYCIN BASE (Verified Allergy, Mild, 10/22/18) AMPICILLIN (Verified Allergy, Unknown, 10/22/18) ASPIRIN (Verified Allergy, Unknown, 10/22/18) AZITHROMYCIN (Unverified Allergy, Unknown, 04/17/19) IBUPROFEN (Verified Allergy, Unknown, 10/22/18) NAPROXEN (Verified Allergy, Unknown, 10/22/18) All Systems: reviewed and negative except above Subjective remains on 3 liters NC care noted no distress no significant bronchospasm Objective Last 24 Hour Vital Signs Date Time Temp Pulse Resp B/P (MAP) Pulse Ox O2 Delivery O2 Flow Rate FiO2 07/12/19 08:40 85 07/12/19 08:27 98.0 90 19 151/71 (97) 93 07/12/19 08:22 Room Air 07/12/19 05:19 118/63 07/12/19 04:00 98.2 85 21 110/61 (77) 96 07/12/19 04:00 87 07/12/19 00:00 83 07/12/19 00:00 98.6 95 20 132/81 (98) 96 07/11/19 22:00 140/92 07/11/19 21:00 Room Air 07/11/19 20:00 98.8 97 19 140/92 (108) 95 07/11/19 20:00 88 07/11/19 16:00 98.6 87 20 112/67 (82) 94 07/11/19 15:40 114 07/11/19 13:53 119/79 07/11/19 12:00 98.1 81 19 119/79 (92) 97 07/11/19 12:00 3.0 07/11/19 11:36 87 Intake and Output 07/11/19 07/12/19 19:00 07:00 Intake Total 1100 ml 1500 ml Output Total 1200 ml Balance 1100 ml 300 ml Intake Oral 1100 ml 1500 ml Output Urine Total 1200 ml # Voids 5 3 # Bowel Movements 5 Objective GENERAL: A well-developed female. on NC oxygen HEENT: Negative. NECK: Supple. LUNGS: reduced breath sounds. Moderate air entry. No significant wheezes. no rhonchi CARDIAC: S1, S2. Regular rate and rhythm. without MRG ABDOMEN: Soft, nontender, nondistended. EXTREMITIES: No cyanosis, clubbing, or edema. NEUROLOGIC: Grossly nonfocal, alert. reviewed and edited General Appearance: no acute distress HEENT: mucous membranes moist Abdomen: soft, non tender Extremities: no edema Skin: other - depigmentation in scalp & face Neurologic/Psychiatric: alert, oriented x 3, responsive Current Medications Medications (Trade) Dose Ordered Sig/Dom Route PRN Reason Start Time Stop Time Status Last Admin Dose Admin Acetaminophen (Tylenol) 650 mg Q4H PRN ORAL Mild Pain (Pain Scale 1-3) 07/06/19 17:30 08/03/19 17:29 Albuterol/ Ipratropium (Combivent Respimat) 1 puff Q4HRT INH 07/06/19 19:00 08/03/19 14:59 07/12/19 07:00 Captopril (Capoten) 50 mg EVERY 8 HOURS ORAL 07/07/19 14:45 08/06/19 14:44 07/12/19 05:19 Enoxaparin Sodium (Lovenox) 40 mg DAILY SUBQ 07/07/19 09:00 10/03/19 05:59 07/11/19 09:40 Hydromorphone HCl (Dilaudid) 1 mg Q4H PRN IVP PAIN 4-10 07/11/19 09:53 07/18/19 09:52 07/12/19 06:02 Pantoprazole (Protonix) 40 mg DAILY ORAL 07/07/19 09:00 08/03/19 08:59 07/11/19 09:39 Assessment/Plan Assessment/Plan IMPRESSION: 1. Bilateral infiltrates, negative COVID pneumonia 2. COPD 3. Respiratory insufficiency. 4. History of seizures. 5. Elevated inflammatory markers. 6. Possible sepsis. 7. Hypoxemia PLAN care noted overnight acid base follow up respiratory care same for now off load antibiotics reviewed off steroids negative COVID results meds noted optimize for dc follow up imaging- minimal changes noted dc planning soon and hope to dc steroids in am impression, plan, and exam edited and reviewed in detail care discussed with Aquilino Guzman MD July 12, 2019 08:45
--- NOTE | 2019-07-12 09:00 | NUR ---
NURSE NOTES: Pt walked to nursing station asking for her dilaudid 1 hour before the next prn dose is available. Pt has exhibited this behavior repeatedly. Pt asked to return to room by charge nurse then started complaining that she was being treated badly by the staff and her doctor said she could have the IV pain medication as long as she was here. Pt returned to room and demanded to see nursing quality assurance supervisor final, called and later at bedside.
[2019-07-12] MEDS ORDERED: PREDNISONE10 M2 PO (09:01)
[2019-07-12] MEDS ORDERED: PANTOPRAZOLE SO40 MG ORAL (09:01)
[2019-07-12] MEDS ORDERED: ACETAMINOPHEN-1 EAC2 ORAL (09:01)
[2019-07-12] MEDS: Enoxaparin 40mg Inj SUBQ SCH (09:02)
--- NOTE | 2019-07-12 09:28 | NUR ---
CASE MANAGEMENT:REVIEW 07/11/19 SI: ACUTE RESPIRATORY FAILURE BILATERAL PNA. COPD COVID NEGATIVE X2 98.0 90 19 151/71 93% ON RA IS: CAPTOPRIL PO Q8HR LOVENOX SQ QD PROTONIX PO QD IV DILAUDID Q4HRS PRN DUONEB HHN Q4HRS RTC : TELEMETRY STATUS DCP: FROM HOME PLAN: DISCHARGE HOME WITH HAND HELD NEBULIZER...FAXED ORDER TO [facility]
--- NOTE | 2019-07-12 09:43 | NUR ---
DISCHARGE PLANNING FAXED HAND HELD NEBULIZER ORDER TO [facility] [place] NETWORKING ADMINISTRATOR ~ ARIE T: [phone] [id number] F: [phone] HEALTH [facility]AN WILL ORDER AND ARRANGE FOR DELIVERY OF NEBULIZER
--- NOTE | 2019-07-12 11:00 | Infectious Diseases Prog Note ---
Assessment/Plan Assessment/Plan antibiotics : none A 1. pneumonia s/p rx COVID 19 test negative 5.7.20, 5.9.20 2. COPD 3. hypertension 4, lupus 5. CVA P 1. observe off antibiotics Subjective Constitutional: Denies: fever, chills Respiratory: Reports: shortness of breath - decreased, dry cough - decreased Gastrointestinal/Abdominal: Denies: nausea, vomiting, diarrhea Musculoskeletal: Denies: pain Allergies: Coded Allergies: KETOROLAC TROMETHAMINE (Verified Allergy, Severe, Anaphylaxis, 10/22/18) PENICILLINS (Verified Allergy, Severe, Anaphylaxis, 10/22/18) TETRACYCLINE (Verified Allergy, Severe, Anaphylaxis, 10/22/18) HALOPERIDOL LACTATE (Verified Allergy, Intermediate, Anaphylaxis, 10/22/18) ERYTHROMYCIN BASE (Verified Allergy, Mild, 10/22/18) AMPICILLIN (Verified Allergy, Unknown, 10/22/18) ASPIRIN (Verified Allergy, Unknown, 10/22/18) AZITHROMYCIN (Unverified Allergy, Unknown, 04/17/19) IBUPROFEN (Verified Allergy, Unknown, 10/22/18) NAPROXEN (Verified Allergy, Unknown, 10/22/18) Objective Vital Signs Last 24 Hour Vital Signs Date Time Temp Pulse Resp B/P (MAP) Pulse Ox O2 Delivery O2 Flow Rate FiO2 07/12/19 08:40 85 07/12/19 08:27 98.0 90 19 151/71 (97) 93 07/12/19 08:22 Room Air 07/12/19 05:19 118/63 07/12/19 04:00 98.2 85 21 110/61 (77) 96 07/12/19 04:00 87 07/12/19 00:00 83 07/12/19 00:00 98.6 95 20 132/81 (98) 96 07/11/19 22:00 140/92 07/11/19 21:00 Room Air 07/11/19 20:00 98.8 97 19 140/92 (108) 95 07/11/19 20:00 88 07/11/19 16:00 98.6 87 20 112/67 (82) 94 07/11/19 15:40 114 07/11/19 13:53 119/79 07/11/19 12:00 98.1 81 19 119/79 (92) 97 07/11/19 12:00 3.0 5/14/20 11:36 87 Height (Feet): 5 Height (Inches): 4.00 Weight (Pounds): 122 Respiratory/Chest: lungs clear Cardiovascular: normal rate, regular rhythm, no gallop/murmur Abdomen: soft, non tender Extremities: no edema Current Medications Medications (Trade) Dose Ordered Sig/Dom Route PRN Reason Start Time Stop Time Status Last Admin Dose Admin Acetaminophen (Tylenol) 650 mg Q4H PRN ORAL Mild Pain (Pain Scale 1-3) 07/06/19 17:30 08/03/19 17:29 Albuterol/ Ipratropium (Combivent Respimat) 1 puff Q4HRT INH 07/06/19 19:00 08/03/19 14:59 07/12/19 07:00 Captopril (Capoten) 50 mg EVERY 8 HOURS ORAL 07/07/19 14:45 08/06/19 14:44 07/12/19 05:19 Enoxaparin Sodium (Lovenox) 40 mg DAILY SUBQ 07/07/19 09:00 10/03/19 05:59 07/12/19 09:02 Hydromorphone HCl (Dilaudid) 1 mg Q4H PRN IVP PAIN 4-10 07/11/19 09:53 07/18/19 09:52 07/12/19 10:08 Pantoprazole (Protonix) 40 mg DAILY ORAL 07/07/19 09:00 08/03/19 08:59 07/12/19 09:01 Massiel Alvarez MD July 12, 2019 11:00
--- NOTE | 2019-07-12 11:58 | NUR ---
*-* INSURANCE *-* ALL CLINICALS AND REVIEWS HAVE BEEN FAXED TO: [facility] – [place]# [id number] NCM: ZULAY Rendon- [phone] [id number] F: [phone]
--- NOTE | 2019-07-12 11:59 | NUR ---
NURSE NOTES: left Rx here for us to fill for the pat. Duo-neb and hand held neubulizer will be filled with [facility], The rest of the prescriptions have been sent over to [place] pharmacy to be filled and delivered to our pharmacy, medication were brought up to the unit by Magda. pt was give the medications except duo-neb and hand held neb the pt will get the prescription..
--- NOTE | 2019-07-12 16:30 | Diagnostic Imaging Report ---
Procedure: XRAY Chest 1v Reason for study: Reason For Exam: SOB Comparison films: 07/06/2019. FINDINGS: Emphysematous changes again noted in both upper lobes. There is some crowding of markings in the lung bases along with some streaky atelectasis. Vascularity is normal. Cardiac and mediastinal silhouette are within normal limits. CP angles are sharp. The bony thorax appear unremarkable. IMPRESSION: Emphysematous changes of the upper lungs. Crowding of markings and atelectasis in the lung bases.
--- NOTE | 2019-07-13 01:14 | Discharge Summary ---
DATE OF ADMISSION: 07/04/2019 DATE OF DISCHARGE: 07/12/2019 ADMISSION DIAGNOSES: 1. Respiratory failure. 2. COPD/asthma exacerbation. 3. History of lupus. 4. Chronic pain. 5. Rule out COVID-19. 6. Hypokalemia. DISCHARGE DIAGNOSES: 1. Respiratory failure. 2. COPD/asthma exacerbation. 3. History of lupus. 4. Chronic pain. 5. Rule out COVID-19. 6. Hypokalemia. HOSPITAL COURSE: Patient was admitted with complaints of severe shortness of breath. She was initially on BiPAP because of severe hypoxemia. She was diagnosed with COPD and CHF exacerbation. She was ruled out for COVID-19. She was treated for bronchitis. She received intravenous steroids. These were gradually weaned and switched to oral. Patient required IV pain medications for her chronic pain. She received intravenous Lasix for diuresis. Upon discharge, she was stable. She will be discharged home and will be followed up in one to two weeks. DISCHARGE MEDICATIONS: Please see discharge medication list for discharge medications. DIET: Regular. ACTIVITIES: Ad-jojo. Flakito Reyes M.D. DR: CHRISTIAN JOB#: [id number] CC:
--- NOTE | 2019-07-13 03:30 | Progress Note ---
DATE: 07/12/2019 CARDIOLOGY PROGRESS NOTE SUBJECTIVE: The patient is on low-flow oxygen. No respiratory distress. Denies cough or chest pain, lying relatively flat. PHYSICAL EXAMINATION: VITAL SIGNS: Blood pressure 118/63, pulse 87, respiratory rate 21, afebrile. Monitored rhythm sinus with rare atrial ectopy. LUNGS: Good breath sounds. No wheezing or rales. CARDIAC: Regular rhythm and rate. Normal S1 and S2 with a fourth heart sound. ABDOMEN: Soft. EXTREMITIES: No edema. IMPRESSION: 1. Pneumonia with bronchospasm has resolved. 2. Acute on chronic diastolic congestive heart failure is compensated. The patient has hypoxia and is on chronic home oxygen. 3. Electrolyte abnormalities have been corrected. 4. Hypertensive heart disease, now with controlled blood pressure. PLAN: 1. Stable for outpatient followup. 2. Current medication regimen can be continued without change. 3. Outpatient cardiovascular followup offered. Karl Estes M.D. DR: INEZ JOB#: [id number] CC:
--- NOTE | 2019-07-15 13:38 | NUR ---
*-* INSURANCE *-* DISCHARGE SUMMARY HAS BEEN FAXED TO: [employer]EVIN# [id number] NCM: ZULAY Rendon- [phone] F: [phone]
--- NOTE | 2019-07-19 08:18 | Coder Physician Query ---
Clarification is required for compliance, coding accuracy, and to reflect severity of illness for this patient. Dear Dr. 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 Respiratory failure. 2. COPD/asthma exacerbation. 3. History of lupus. 4. Chronic pain. 5. Rule out COVID-19. 6. Hypokalemia. HOSPITAL COURSE: Patient was admitted with complaints of severe shortness of breath. She was initially on BiPAP because of severe hypoxemia. She was diagnosed with COPD and CHF exacerbation. She was ruled out for COVID-19. She was treated for bronchitis. BLOOD CULTURES NEGATIVE X 2 WBC -07/03- 9.4, 07/05 - 9.2, 07/07 - 8.0 A posssible diagnois of SEPSIS was made in the medical record by DR. KRUSE in progres notes starting on 07/05/19- 07/12/19. ID CONSULT BY DID NOT MENTION SEPSIS. Upon review, it is difficult to determine whether this diagnosis has been ruled in, ruled out,or is still being worked up. Please indicate below the status of the aforementioned diagnosis. [] Ruled out [] Treated and resolve [x] Presumed and treated [] Currently under treatment [] Still being worked-up Present on Admission: [x] Yes [] No [] Clinically Undetermined Physician signature Date Please also document in your Progress Notes and/or Discharge Summary and indicate if the condition was present on admission. JOSE ANGELD
== END 2019-07-12 12:39 | disposition home health service (06) | DRG 720 ==
LOC: EDBD 03:58 → EMR 04:11 → EDBEDREQ 05:12 → ICU 05:20 → EDBEDREQ 07:11 → 2W 11:46 → 2E 07-06 17:21
PROC: 5A09357 Assistance with Respiratory Ventilation, Less than 24 Consecutive Hours, Continuous Positive Airway Pressure (ICD-10-PCS; principal; 2019-07-04)
DX: A41.9 Sepsis, unspecified organism (principal); J18.9 Pneumonia, unspecified organism; J96.01 Acute respiratory failure with hypoxia; I50.33 Acute on chronic diastolic (congestive) heart failure; J40 Bronchitis, not specified as acute or chronic; Z88.6 Allergy status to analgesic agent; Z88.1 Allergy status to other antibiotic agents; Z88.0 Allergy status to penicillin; Z88.8 Allergy status to other drugs, medicaments and biological substances; F17.200 Nicotine dependence, unspecified, uncomplicated; I11.0 Hypertensive heart disease with heart failure; J44.1 Chronic obstructive pulmonary disease with (acute) exacerbation; G89.29 Other chronic pain; L93.0 Discoid lupus erythematosus; E87.6 Hypokalemia; Z87.891 Personal history of nicotine dependence; D64.9 Anemia, unspecified; Z86.73 Personal history of transient ischemic attack (TIA), and cerebral infarction without residual deficits; M06.9 Rheumatoid arthritis, unspecified
CPT/HCPCS: 36415; 36600; 71045; 80053; 80307; 81003; 82550; 82553; 82728; 82803; 83605; 83735; 83880; 84484; 85025; 85379; 85610; 85651; 85730; 86140; 87040; 87635; 93005; 94660; 96365; 96367; 96368; 96372; 96375; 99291

== ENCOUNTER 2019-07-22 15:16 | Emergency (ER) | payer MEDICARE, OTHER ==
[~2019-07-22] VITALS: Ht 170.2 cm; Wt 54.4 kg
[~2019-07-22 15:16] MED LIST changes: +OXYCODONE HCL30 MG ORAL; +PANTOPRAZOLE SO40 MG ORAL
[2019-07-22 15:23] VITALS: BP 141/68
--- NOTE | 2019-07-22 15:23 | NUR ---
ED Nurse Note: Pt from home and brought in by ambulance due to generalized body pain. Denies CP. AAO x4 and ambulatory.
[2019-07-22] MEDS ORDERED: Morphine Sulfate 4mg/ml Inj (IV USE ONLY) IVP ONE (15:30)
--- NOTE | 2019-07-22 15:30 | Emergency Room Report ---
History of Present Illness General Chief Complaint: General Complaint Source: Patient Present Illness HPI Disclaimer: Please note that this report is being documented using DRAGON technology. This can lead to erroneous entry secondary to incorrect interpretation by the dictating instrument. HPI: 68-year-old female history of lupus, COPD presents complaining of body wide pain. Patient reports pain from head to toe as well as generalized headache and generalized weakness for the past 2 or 3 days. Denies fever, chills. States she has tested negative multiple times for COVID-19. Patient has a history of COPD and had a chronic cough but denies any changes in that cough, new sputum production, fever, chills, vomiting. Reports nausea and has a history of GERD. She took Pepcid this morning. Last dose of oxycodone was approximately 2 AM. Denies fall or injury. Denies chest pain or shortness of breath. PMH: Lupus, COPD PSH: Reviewed Allergies: Haldol, azithromycin, aspirin, ampicillin, NSAIDS Social Hx: Tobacco use, chronic opioid use Allergies: Coded Allergies: KETOROLAC TROMETHAMINE (Verified Allergy, Severe, Anaphylaxis, 10/22/18) PENICILLINS (Verified Allergy, Severe, Anaphylaxis, 10/22/18) TETRACYCLINE (Verified Allergy, Severe, Anaphylaxis, 10/22/18) HALOPERIDOL LACTATE (Verified Allergy, Intermediate, Anaphylaxis, 10/22/18) ERYTHROMYCIN BASE (Verified Allergy, Mild, 10/22/18) AMPICILLIN (Verified Allergy, Unknown, 10/22/18) ASPIRIN (Verified Allergy, Unknown, 10/22/18) AZITHROMYCIN (Unverified Allergy, Unknown, 04/17/19) IBUPROFEN (Verified Allergy, Unknown, 10/22/18) NAPROXEN (Verified Allergy, Unknown, 10/22/18) COVID-19 Screening Contact w/high risk pt: No Recent Travel to affected area: No Experienced COVID-19 symptoms?: No COVID-19 symptoms experienced: Shortness of Breath, Cough COVID-19 Testing performed EDUCATION ADMINISTRATOR: No Nursing Documentation-PMH Hx Hypertension: Yes Hx Pacemaker: No Hx Asthma: Yes Hx Diabetes: No Hx Cancer: No Hx Gastrointestinal Problems: Yes - DIVERTICULITIS Hx Dialysis: No Hx Neurological Problems: Yes - LUPUS Hx Cerebrovascular Accident: No Hx Seizures: No - LUPUS Review of Systems All Other Systems: negative except mentioned in HPI Physical Exam Vital Signs Date Time Temp Pulse Resp B/P (MAP) Pulse Ox O2 Delivery O2 Flow Rate FiO2 07/22/19 15:13 99.7 98 18 173/93 (119) 95 Room Air General: Awake and alert, no acute distress HEENT: NC/AT. EOMI. Cardiovascular: RRR. S1 and S2 normal. No murmur appreciated Resp: Normal work of breathing. No cough, wheezing or crackles appreciated Abdomen: Abdomen is soft, nondistended. Nontender Skin: Loss of pigmentation over the nasal bridge and over the temples and scalp with alopecia on the scalp and the hypopigmented areas. MSK: Normal tone and bulk. Moving all extremities. No obvious deformity. Diffuse tenderness all major muscle and joint groups on palpation Neuro: Awake and alert. Mentating appropriately. Medical Decision Making Diagnostic Impression: Primary Impression: UTI (urinary tract infection) Additional Impressions: Total body pain Chronic hypokalemia ER Course 68-year-old female with a history of lupus, chronic pain, COPD presents for evaluation of diffuse body pain and generalized weakness. Differential includes was not limited to dehydration, electrolyte abnormality, renal failure , viral syndrome, chronic pain, complications of lupus, opiate withdrawal, ACS, UTI to name a few. Cures report shows last narcotic prescribed was Tylenol with codeine on 07/12/2019 5-day supply and previously a 90 tablet prescription, 30-day supply, of oxycodone 15 mg tablets on 06/28/2019. EKG shows no acute ST segment changes or signs of acute ischemia. Chest x-ray shows some mild bilateral pulmonary congestion and hyperinflation consistent with the patient's history of COPD. Largely unchanged from prior x-rays. No obvious infiltrate. Labs show hypokalemia for which the patient is already taking supplemental potassium. States this is being investigated by her PMD. Will give additional potassium in the emergency department. Patient also require antibiotics for urinary tract infection. Ceftriaxone given in the ED. She will be discharged on Macrobid. Discussed need for follow up with her PMD and reasons to return to the ED. She understands and agrees with this treatment plan Laboratory Tests Test 07/22/19 15:57 07/22/19 16:07 07/22/19 17:05 White Blood Count 5.4 K/UL (4.8-10.8) Red Blood Count 4.23 M/UL (4.20-5.40) Hemoglobin 11.1 G/DL (12.0-16.0) L Hematocrit 34.0 % (37.0-47.0) L Mean Corpuscular Volume 81 FL (80-99) Mean Corpuscular Hemoglobin 26.3 PG (27.0-31.0) L Mean Corpuscular Hemoglobin Concent 32.7 G/DL (32.0-36.0) Red Cell Distribution Width 17.8 % (11.6-14.8) H Platelet Count 257 K/UL (150-450) Mean Platelet Volume 6.5 FL (6.5-10.1) Neutrophils (%) (Auto) 61.6 % (45.0-75.0) Lymphocytes (%) (Auto) 28.7 % (20.0-45.0) Monocytes (%) (Auto) 8.0 % (1.0-10.0) Eosinophils (%) (Auto) 0.8 % (0.0-3.0) Basophils (%) (Auto) 0.9 % (0.0-2.0) Troponin I 0.014 ng/mL (0.000-0.056) Serum Alcohol < 3 mg/dL Urine Color Yellow Urine Appearance Cloudy Urine pH 5 (4.5-8.0) Urine Specific [place] 1.020 (1.005-1.035) Urine Protein 2+ (NEGATIVE) H Urine Glucose (UA) Negative (NEGATIVE) Urine Ketones Negative (NEGATIVE) Urine Blood 3+ (NEGATIVE) H Urine Nitrite Negative (NEGATIVE) Urine Bilirubin Negative (NEGATIVE) Urine Urobilinogen 4 MG/DL (0.0-1.0) H Urine Leukocyte Esterase 2+ (NEGATIVE) H Urine RBC 5-10 /HPF (0 - 2) H Urine WBC 5-10 /HPF (0 - 2) H Urine Squamous Epithelial Cells Many /LPF (NONE/OCC) H Urine Bacteria Moderate /HPF (NONE) H Urine Opiates Screen Positive (NEGATIVE) H Urine Barbiturates Screen Negative (NEGATIVE) Phencyclidine (PCP) Screen Negative (NEGATIVE) Urine Amphetamines Screen Negative (NEGATIVE) Urine Benzodiazepines Screen Negative (NEGATIVE) Urine Cocaine Screen Negative (NEGATIVE) Urine Marijuana (THC) Screen Negative (NEGATIVE) Sodium Level 147 MMOL/L (136-145) H Potassium Level 2.9 MMOL/L (3.5-5.1) L Chloride Level 112 MMOL/L (98-107) H Carbon Dioxide Level 24 MMOL/L (21-32) Anion Gap 11 mmol/L (5-15) Blood Urea Nitrogen 13 mg/dL (7-18) Creatinine 0.7 MG/DL (0.55-1.30) Estimated Glomerular Filtration Rate > 60 mL/min (>60) Glucose Level 92 MG/DL (74-106) Calcium Level 7.9 MG/DL (8.5-10.1) L Total Bilirubin 0.5 MG/DL (0.2-1.0) Aspartate Amino Transferase (AST) 24 U/L (15-37) Alanine Aminotransferase (ALT) 23 U/L (12-78) Alkaline Phosphatase 63 U/L (46-116) Total Protein 5.7 G/DL (6.4-8.2) L Albumin 2.9 G/DL (3.4-5.0) L Globulin 2.8 g/dL Albumin/Globulin Ratio 1.0 (1.0-2.7) EKG Diagnostic Results EKG Time: 16:06 Rate: normal Rhythm: NSR ST Segments: no acute changes Other Impression Sinus rhythm, borderline LVH, lateral Q waves consistent with prior ischemia, no acute ST changes Rhythm Strip Diag. Results Rhythm Strip Time: 16:06 EP Interpretation: yes Rate: 80s Rhythm: NSR, no PVC's, no ectopy Chest X-Ray Diagnostic Results Chest X-Ray Diagnostic Results : Chest X-Ray Ordered: Yes # of Views/Limited/Complete: 1 View Indication: Other - Cough EP Interpretation: Yes Interpretation: no consolidation, no effusion, no pneumothorax, other - Bilateral mild vascular congestion Impression: No acute disease Electronically Signed by: Electronically signed by Dr. Filemon Winters Last Vital Signs Date Time Temp Pulse Resp B/P (MAP) Pulse Ox O2 Delivery O2 Flow Rate FiO2 07/22/19 15:13 99.7 98 18 173/93 (119) 95 Room Air Disposition: HOME, SELF-CARE Condition: Stable Scripts Nitrofurantoin Monohyd/M-Cryst* (MACROBID 100 MG*) 100 Mg Capsule 100 MG ORAL EVERY 12 HOURS for 7 Days, #14 CAP Prov: Filemon Winters MD 07/22/19 Potassium Chloride* (K-DUR*) 20 Meq Tab.er.prt 20 MEQ ORAL DAILY, #7 TAB 0 Refills Prov: Filemon Winters MD 07/22/19 Filemon Winters MD July 22, 2019 15:30
--- NOTE | 2019-07-22 16:15 | NUR ---
ED Nurse Note: Collected blood and urine then sent.
--- NOTE | 2019-07-22 16:20 | Diagnostic Imaging Report ---
EXAM: XR Chest, 1 View CLINICAL HISTORY: COUGH TECHNIQUE: Frontal view of the chest. COMPARISON: Chest radiograph on 07/11/2019 FINDINGS: Hardware: None. Lungs/pleura: Hyperinflation of the lungs with emphysematous changes. Lower lung opacities may represent atelectasis versus pneumonia. No pleural effusion or pneumothorax. Heart/mediastinum: Enlargement of the cardiac silhouette. Atherosclerotic changes in the aorta. Soft tissues: Unremarkable. Bones: No acute fracture. Upper abdomen: Normal. IMPRESSION: Hyperinflation of the lungs with emphysematous changes. Lower lung opacities may represent atelectasis versus pneumonia.
[2019-07-22 16:39] LABS: BASOPHILS % (AUTO) 0.9 % (0.0-2.0); EOSINOPHILS % (AUTO) 0.8 % (0.0-3.0); HEMOGLOBIN 11.1 G/DL (12.0-16.0); LYMPHOCYTES % (AUTO) 28.7 % (20.0-45.0); MEAN CORPUSCULAR VOLUME 81 FL (80-99); NEUTROPHILS % (AUTO) 61.6 % (45.0-75.0); PLATELET COUNT 257 K/UL (150-450); RED BLOOD COUNT 4.23 M/UL (4.20-5.40); RED CELL DISTRIBUTION WIDTH 17.8 % (11.6-14.8); WHITE BLOOD COUNT 5.4 K/UL (4.8-10.8)
[2019-07-22 16:47] LABS: APPEARANCE,URINE CLOUDY; BILIRUBIN, URINE NEGATIVE (NEGATIVE); GLUCOSE, URINE (UA) NEGATIVE (NEGATIVE); KETONES,URINE NEGATIVE (NEGATIVE); LEUKOCYTE ESTERASE ,URINE 2+ (NEGATIVE); NITRITE,URINE NEGATIVE (NEGATIVE); PH,URINE 5 (4.5-8.0); PROTEIN,URINE 2+ (NEGATIVE); UROBILINOGEN,URINE 4 MG/DL (0.0-1.0)
[2019-07-22 16:49] LABS: COLOR,URINE YELLOW
--- NOTE | 2019-07-22 17:08 | NUR ---
ED Nurse Note: Pt states she wants to talk to the doctor for pain medications. Pt tried to stand up and walked. Dr Winters notified that pt is asking for pain medication.
[2019-07-22] MEDS ORDERED: Morphine Sulfate 2mg/ml Inj(IV/IM USE ONLY) IM ONE (17:15)
[2019-07-22 17:30] LABS: ALANINE AMINOTRANSFERASE 23 U/L (12-78); ALBUMIN 2.9 G/DL (3.4-5.0); ALKALINE PHOSPHATASE 63 U/L (46-116); ANION GAP 11 mmol/L (5-15); ASPARTATE AMINO TRANSFERASE 24 U/L (15-37); BILIRUBIN,TOTAL 0.5 MG/DL (0.2-1.0); BLOOD UREA NITROGEN 13 mg/dL (7-18); CALCIUM 7.9 MG/DL (8.5-10.1); CARBON DIOXIDE 24 MMOL/L (21-32); CHLORIDE 112 MMOL/L (98-107); CREATININE 0.7 MG/DL (0.55-1.30); POTASSIUM 2.9 MMOL/L (3.5-5.1); SODIUM 147 MMOL/L (136-145)
[2019-07-22 17:35] VITALS: BP 135/76
[2019-07-22] MEDS ORDERED: cefTRIAXone 1 GM in NS 55 ML IVPB ONE (17:45)
[2019-07-22] MEDS ORDERED: NITROFURANTOIN100 M2 ORAL (17:59)
[2019-07-22] MEDS ORDERED: POTASSIUM CHLO20 ME1 ORAL (17:59)
--- NOTE | 2019-07-22 18:41 | NUR ---
ED Nurse Note: Mcdonald and juice provided per pt request. Dr Vianey cramer for pt to eat.
--- NOTE | 2019-07-22 19:02 | NUR ---
HAND-OFF: Report given to Cara GUTIERREZ.
--- NOTE | 2019-07-22 19:15 | NUR ---
ED Nurse Note: Patient is finishing up IV administration of potassium and notes very little burnign sensation. Instructed patient to notify me if medication becomes too uncomfortable. Will con tinue to monitor for discharge.
[2019-07-22 20:09] VITALS: BP 135/76
--- NOTE | 2019-07-22 20:09 | NUR ---
ER DISCHARGE NOTE: Patient is cleared to be discharged per ERMD, pt is aox4, on room air, with stable vital signs. pt was given dc and prescription instructions in hand, pt was able to verbalize understanding, pt id band and iv sites x 2 removed without complications. pt is able to ambulate with steady gait with use of walker. Patient was reminded of proper channels to obtain high profile pain medication. patient departed with all belongings.
== END 2019-07-22 20:09 | disposition home or self-care (01) ==
LOC: EDBD 15:16 → EMR 16:10
DX: N39.0 Urinary tract infection, site not specified (principal); R52 Pain, unspecified; E87.6 Hypokalemia; J44.9 Chronic obstructive pulmonary disease, unspecified; Z88.6 Allergy status to analgesic agent; Z88.0 Allergy status to penicillin; I10 Essential (primary) hypertension
CPT/HCPCS: 36415; 71045; 80053; 80307; 81003; 84484; 85025; 87086; 96365; 96367; 96372; 96375; G0480; J0696; J2270; J2405; J3480; Z7502; 99284; J8499

== ENCOUNTER 2019-07-24 07:00 | Emergency (ER) | payer MEDICARE, OTHER ==
[~2019-07-24] VITALS: Ht 170.2 cm; Wt 54.4 kg
[2019-07-24 07:00] VITALS: BP 159/83
[~2019-07-24 07:00] MED LIST changes: +NITROFURANTOIN100 M2 ORAL
--- NOTE | 2019-07-24 07:00 | NUR ---
ED Nurse Note: Pt brought into ED by MAIKEL Whitehead from home for c/o SOB and non productive cough x 1 day. Pt also c/o generalized body pain due to hx of lupus. Pt is breathing normal and unlabored and speaking in full sentences. Pt is aaox4, no cardiac distress noted. Pt placed on cardiac cath technologist and safety measures in place.
[2019-07-24] MEDS ORDERED: Morphine Sulfate 2mg/ml Inj(IV/IM USE ONLY) IM ONE (07:15)
--- NOTE | 2019-07-24 07:15 | NUR ---
HAND-OFF: Report given to BRENDA Pineda.
--- NOTE | 2019-07-24 07:16 | NUR ---
ED Nurse Note: Received patient in bed. patient placed on a monitor. patient visited [facility] ED on 07/21 and was prescribed wiht potassium and antibiotics for UTI. patient reinforced to take the medications as prescribed. patient verbalized understanding.
[2019-07-24] MEDS: Albuterol ud Inhalation HHN SCH (07:36)
[2019-07-24] MEDS: Ipratropium 0.02% Inh Soln 2.5ml UD HHN SCH (07:36)
--- NOTE | 2019-07-24 07:49 | Emergency Room Report ---
History of Present Illness General Chief Complaint: Dyspnea/Respdistress Source: Patient, EMS Present Illness HPI 68-year-old female presents for shortness of breath. History of COPD. Brought in by EMS from home. States she has had a cough x1 day. Productive. Denies fevers or chills. Denies chest pain. States she also has generalized pain. History of lupus. Pain is throbbing, 10 out of 10, nonradiating. Also complaining of lower back pain. States she tripped and fell yesterday. Normally uses a walker. Denies hitting her head or LOC. Denies any other injuries. No other aggravating relieving factors. Denies any other associated symptoms Allergies: Coded Allergies: KETOROLAC TROMETHAMINE (Verified Allergy, Severe, Anaphylaxis, 10/22/18) PENICILLINS (Verified Allergy, Severe, Anaphylaxis, 10/22/18) TETRACYCLINE (Verified Allergy, Severe, Anaphylaxis, 10/22/18) HALOPERIDOL LACTATE (Verified Allergy, Intermediate, Anaphylaxis, 10/22/18) ERYTHROMYCIN BASE (Verified Allergy, Mild, 10/22/18) AMPICILLIN (Verified Allergy, Unknown, 10/22/18) ASPIRIN (Verified Allergy, Unknown, 10/22/18) AZITHROMYCIN (Unverified Allergy, Unknown, 04/17/19) IBUPROFEN (Verified Allergy, Unknown, 10/22/18) NAPROXEN (Verified Allergy, Unknown, 10/22/18) COVID-19 Screening Contact w/high risk pt: No Recent Travel to affected area: No Experienced COVID-19 symptoms?: Yes COVID-19 symptoms experienced: Shortness of Breath, Cough COVID-19 Testing performed 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 - 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 1 month COVID-19 Screening: Negative COVID-19 COVID-19 Testing Source: [facility] [place] Patient History Past Medical History: HTN, asthma Past Surgical History: none Pertinent Family History: none Social History: Denies: smoking, alcohol use, drug use Last Menstrual Period: na Now: No Immunizations: UTD Reviewed Nursing Documentation: PMH: Agreed; PSxH: Agreed Nursing Documentation-PMH Past Medical History: No History, Except For Hx Hypertension: Yes Hx Pacemaker: No Hx Asthma: Yes Hx Diabetes: No Hx Cancer: No Hx Gastrointestinal Problems: Yes - DIVERTICULITIS Hx Dialysis: No Hx Neurological Problems: Yes - LUPUS Hx Cerebrovascular Accident: No Hx Seizures: No Review of Systems All Other Systems: negative except mentioned in HPI Physical Exam Vital Signs Date Time Temp Pulse Resp B/P (MAP) Pulse Ox O2 Delivery O2 Flow Rate FiO2 07/24/19 06:55 99.0 98 28 194/105 (134) 94 Room Air Sp02 EP Interpretation: reviewed, normal General Appearance: no apparent distress, alert, GCS 15, non-toxic Head: normocephalic, atraumatic Eyes: bilateral eye normal inspection, bilateral eye PERRL ENT: hearing grossly normal, normal pharynx, no angioedema, normal voice Neck: full range of motion, supple/symm/no masses Respiratory: chest non-tender, decreased breath sounds, speaking full sentences , wheezing Cardiovascular #1: regular rate, rhythm, no edema Cardiovascular #2: 2+ carotid (R), 2+ carotid (L), 2+ radial (R), 2+ radial (L) , 2+ dorsalis pedis (R), 2+ dorsalis pedis (L) Gastrointestinal: normal bowel sounds, non tender, soft, non-distended, no guarding, no rebound Rectal: deferred Genitourinary: normal inspection, no CVA tenderness, vertebral tenderness Musculoskeletal: back normal, normal range of motion, gait/station normal, non- tender Neurologic: alert, motor strength/tone normal, oriented x3, sensory intact, responsive, speech normal Psychiatric: judgement/insight normal, memory normal, mood/affect normal, no suicidal/homicidal ideation Reflexes: 3+ bicep (R), 3+ bicep (L), 3+ tricep (R), 3+ tricep (L), 3+ knee (R) , 3+ knee (L) Skin: other - malar hypopigmentation on face Lymphatic: no adenopathy Medical Decision Making Diagnostic Impression: Primary Impression: COPD bronchitis Additional Impression: Lupus ER Course Hospital Course 68-year-old female presents to ED complaining of cough, SOB. h/o COPD. generalized pain h/o lupus. c/o back pain Differential diagnoses include: URI, bronchitis, asthma/COPD, pneumonia Clinical course Patient placed on stretcher. in isolation. After initial history and physical I ordered pain meds, prednisone, CXR, and nebulizer treatment. CXR - hyperinflated lungs. no focal consolidation Lspine - degenerative changes. no acute fx identified Patient recently hospitalized. Has tested negative for COVID. Has been seen here numerous times for similar presentation. Breathing improved. Pain improved. I see no reason for admission at this time. Safe for discharge with close outpatient follow-up. States she has a PMD Diagnosis - COPD bronchitis, lupus Stable and discharged home with prescriptions for prednisone, levaquin, albuterol. Instructed to followup with PMD. Return to ED if symptoms recur or worsen Chest X-Ray Diagnostic Results Chest X-Ray Diagnostic Results : Chest X-Ray Ordered: Yes # of Views/Limited/Complete: 1 View Indication: Shortness of Breath EP Interpretation: Yes Interpretation: no consolidation, no effusion, no pneumothorax, no acute cardiopulmonary disease, other - hyperinflated lugns Impression: Other - COPD Electronically Signed by: Electronically signed by Stephen Win MD Other X-Ray Diagnostic Results Other X-Ray Diagnostic Results : X-Ray ordered: L spine # of Views/Limited Vs Complete: 3 View Indication: Pain EP Interpretation: Yes Interpretation: no dislocation, no soft tissue swelling, no fractures, nonspecific bowel gas Impression: No acute disease Electronically Signed by: Electronically signed by Stephen Win MD Last Vital Signs Date Time Temp Pulse Resp B/P (MAP) Pulse Ox O2 Delivery O2 Flow Rate FiO2 07/24/19 07:00 97 15 Room Air 07/24/19 07:00 99.0 159/83 97 Status: improved Disposition: HOME, SELF-CARE Condition: Stable Scripts Albuterol Sulfate* (Albuterol Sulfate Hfa*) 8.5 Gm Hfa.aer.ad 2 PUFF INH Q6H, #1 INH Prov: Stephen Win MD 07/24/19 Prednisone* (PREDNISONE*) 20 Mg Tablet 40 MG ORAL DAILY, #10 TAB Prov: Stephen Win MD 07/24/19 Levofloxacin* (LEVAQUIN*) 750 Mg Tablet 750 MG ORAL DAILY for 7 Days, TAB Prov: Stephen Win MD 07/24/19 Referrals: NOT CHOSEN IPA/,REFERRING (PCP) Stephen Win MD July 24, 2019 07:49
--- NOTE | 2019-07-24 08:19 | NUR ---
ED Nurse Note: patient is taken to xray. patient reports she feels much better after breathing tx and medications.
[2019-07-24 09:10] VITALS: BP 162/78
[2019-07-24] MEDS ORDERED: LEVAQUIN750 MG ORAL (09:10)
[2019-07-24] MEDS ORDERED: ALBUTEROL SULF8.5 G1 INH (09:10)
[2019-07-24] MEDS ORDERED: PREDNISONE20 MG ORAL (09:10)
--- NOTE | 2019-07-24 09:15 | NUR ---
ED Nurse Note: patient provided with sandwiches and juices as per patient's request.
--- NOTE | 2019-07-24 09:18 | NUR ---
ER DISCHARGE NOTE: Patient is cleared to be discharged per ERMD Dr Win , pt is aox4, on room air, with stable vital signs. pt was given dc and prescription instructions, pt was able to verbalize understanding, pt id band removed without complications. pt is able to ambulate with steady gait. pt took all belongings.
[2019-07-24 09:19] VITALS: BP 162/78
--- NOTE | 2019-07-24 10:30 | Diagnostic Imaging Report ---
Indication: Cough Technique: One view of the chest Comparison: 07/22/2019 Findings: There is mild hyperinflation, with emphysematous changes in the upper lobes bilaterally. Bilateral interstitial prominence appears similar to the previous exam. The heart is upper limits normal in size. There is some atelectasis or scarring at both lung bases. No new infiltrates. Impression: Evidence of COPD/emphysema Bilateral interstitial prominence, unchanged, suspect related to the above although acute interstitial infiltrates also possible. No significant interim change
--- NOTE | 2019-07-24 10:37 | Diagnostic Imaging Report ---
Indication: Back pain Technique: 3 views of the lumbar spine Comparison: None Findings: There is anterior offset of L3 on L4. There is severe degenerative change, with complete obliteration of the disc space and severe degenerative remodeling of both endplates. There is vacuum formation. There is suggestion of bilateral lateral L3 pars defects, also evident previously. When compared to prior exam, the degree of and anterolisthesis has increased and the degree of degenerative remodeling has increased Bony alignment of the remaining segments is normal. There is also degenerative disc narrowing at L5-S1. The remaining disc spaces are preserved. The remaining vertebral body heights are preserved. The bones are osteoporotic. The pedicles are intact. There are extensive soft tissue calcifications in the left buttock. This could obscure sacral pathology on the lateral view. There are mild degenerative changes of the bilateral hips. There are cholecystectomy clips. The pedicles are intact. Sacral iliac joint spaces are preserved. Impression: Grade 1-2 spondylolisthesis of L3 on L4 with severe secondary degenerative change, progressive since prior study of 10/27/2015. Suspect bilateral L3 pars defects. Degenerative changes at the lumbosacral junction Osteoporosis Other findings as noted
== END 2019-07-24 09:20 | disposition home or self-care (01) ==
LOC: EDBD 07:00 → EMR 07:33
DX: J44.9 Chronic obstructive pulmonary disease, unspecified (principal); J20.9 Acute bronchitis, unspecified; M32.9 Systemic lupus erythematosus, unspecified; M54.5 Low back pain; Z88.0 Allergy status to penicillin; Z88.6 Allergy status to analgesic agent; Z88.8 Allergy status to other drugs, medicaments and biological substances; I10 Essential (primary) hypertension
CPT/HCPCS: 71045; 72020; 96372; 99284; J2270; J7512

== ENCOUNTER 2019-07-26 05:45 | Emergency (ER) | payer MEDICARE, OTHER ==
[~2019-07-26] VITALS: Ht 170.2 cm; Wt 54.4 kg
[~2019-07-26 05:45] MED LIST changes: +ALBUTEROL SULF8.5 G1 INH
[2019-07-26 05:50] VITALS: BP 155/86
--- NOTE | 2019-07-26 05:50 | NUR ---
ED Nurse Note: Pt brought into ED by MAIKEL NINO 68 for c/o chronic generalized pain. No new pain or trauma noted. Pt is aaox4, breathing is normal and unlabored, speaking in full sentences. Safety measures in place, will cont. to monitor.
[2019-07-26] MEDS ORDERED: NORCO 5-325 TA1 EAC1 ORAL (06:07)
--- NOTE | 2019-07-26 06:07 | Emergency Room Report ---
History of Present Illness General Chief Complaint: General Complaint Source: Patient Present Illness HPI 68-year-old female history of COPD history of lupus presents with chronic body pain, acute exacerbation started last night, no aggravating factors alleviated by hydromorphone, severity is severe, constant patient states she needs a pain shot and will get better she describes the pain as achy in nature Allergies: Coded Allergies: KETOROLAC TROMETHAMINE (Verified Allergy, Severe, Anaphylaxis, 10/22/18) PENICILLINS (Verified Allergy, Severe, Anaphylaxis, 10/22/18) TETRACYCLINE (Verified Allergy, Severe, Anaphylaxis, 10/22/18) HALOPERIDOL LACTATE (Verified Allergy, Intermediate, Anaphylaxis, 10/22/18) ERYTHROMYCIN BASE (Verified Allergy, Mild, 10/22/18) AMPICILLIN (Verified Allergy, Unknown, 10/22/18) ASPIRIN (Verified Allergy, Unknown, 10/22/18) AZITHROMYCIN (Unverified Allergy, Unknown, 04/17/19) IBUPROFEN (Verified Allergy, Unknown, 10/22/18) NAPROXEN (Verified Allergy, Unknown, 10/22/18) COVID-19 Screening Contact w/high risk pt: No Recent Travel to affected area: No Experienced COVID-19 symptoms?: No COVID-19 symptoms experienced: Shortness of Breath, Cough COVID-19 Testing performed COOKER SYRUP: No Patient History Past Medical History: see triage record Reviewed Nursing Documentation: PMH: Agreed; PSxH: Agreed Nursing Documentation-PMH Hx Cardiac Problems: Yes - lupus Hx Hypertension: No Hx Pacemaker: No Hx Asthma: No Hx COPD: Yes Hx Diabetes: No Hx Cancer: No Hx Gastrointestinal Problems: No Hx Dialysis: No History Of Psychiatric Problem: No Hx Neurological Problems: No Hx Cerebrovascular Accident: No Hx Seizures: No Review of Systems All Other Systems: negative except mentioned in HPI Physical Exam Vital Signs Date Time Temp Pulse Resp B/P (MAP) Pulse Ox O2 Delivery O2 Flow Rate FiO2 07/26/19 05:48 98.4 92 20 155/86 (109) 96 Room Air General Appearance: well appearing, no apparent distress Head: normocephalic, atraumatic Eyes: bilateral eye PERRL, bilateral eye EOMI ENT: hearing grossly normal, normal voice Neck: full range of motion, supple Respiratory: no respiratory distress, speaking full sentences Neurologic: alert, normal gait Psychiatric: mood/affect normal Skin: no rash Medical Decision Making Diagnostic Impression: Primary Impression: Chronic pain Qualified Codes: G89.29 - Other chronic pain ER Course 68-year-old female presents with lupus exacerbation, patient states she needs a pain shot and she will feel better. Differential diagnosis includes opioid abuse, lupus flare, chronic pain syndrome We will provide patient with a shot of hydromorphone per her request, cures report ran shows she received a prescription 07/12/2019 patient reports that she will follow-up with her doctor this coming Monday, counseled patient that she may have a short-term opioid prescription but if she continues to utilize the emergency room that she will no longer be receiving medications from the ED Last Vital Signs Date Time Temp Pulse Resp B/P (MAP) Pulse Ox O2 Delivery O2 Flow Rate FiO2 07/26/19 05:50 92 20 Room Air 07/26/19 05:50 98.4 155/86 96 Disposition: HOME, SELF-CARE Condition: Stable Scripts Hydrocodone Bit/Acetaminophen 5-325* (NORCO 5-325 TABLET*) 1 Each Tablet 1 TAB ORAL Q6H PRN for FOR PAIN, #12 TAB 0 Refills Prov: Ranjan Trevino MD 07/26/19 Referrals: [facility]. [facility] Patient Instructions: Chronic Pain Additional Instructions: The patient was provided with discharge instructions, notified to follow-up with a primary care doctor and or specialist in the next 24-48 hours, and to return to the ED if they have worsening of their symptoms. Please note that this report is being documented using MoniON technology. This can lead to erroneous entry secondary to incorrect interpretation by the dictating instrument. Ranjan Trevino MD July 26, 2019 06:07
[2019-07-26] MEDS ORDERED: HYDROmorphone 1mg/ml Carpuject IM ONE (06:15)
[2019-07-26 06:25] VITALS: BP 150/62
== END 2019-07-26 06:25 | disposition home or self-care (01) ==
LOC: EDUNIT# 05:45 → EDBD 05:45 → EMR 06:08
DX: G89.29 Other chronic pain (principal); M32.9 Systemic lupus erythematosus, unspecified; J44.9 Chronic obstructive pulmonary disease, unspecified; Z88.0 Allergy status to penicillin; Z88.6 Allergy status to analgesic agent; Z88.1 Allergy status to other antibiotic agents
CPT/HCPCS: 96372; 99283; J1170

== ENCOUNTER 2019-07-28 07:21 | Emergency (ER) | payer MEDICARE, OTHER ==
[~2019-07-28] VITALS: Ht 165.1 cm; Wt 45.4 kg
[2019-07-28 07:21] VITALS: BP 150/96
[~2019-07-28 07:21] MED LIST changes: +NORCO 5-325 TA1 EAC1 ORAL
[2019-07-28] MEDS ORDERED: Acetaminophen 500mg (ES) tab ORAL ONE (07:30)
--- NOTE | 2019-07-28 07:37 | Emergency Room Report ---
History of Present Illness General Chief Complaint: Abdominal Pain Source: Patient Present Illness HPI Disclaimer: Please note that this report is being documented using DRAGON technology. This can lead to erroneous entry secondary to incorrect interpretation by the dictating instrument. HPI: 68-year-old female history of lupus and GERD presents complaining of abdominal pain and body pain. Patient reports right upper quadrant epigastric abdominal pain since last night approximately 8 PM. Cannot recall any inciting event or trigger. No changes in diet. Reports nonbloody nonbilious emesis the last of which was approximately 2 hours ago. Reports some loose stools but denies fevers. Recently tested negative for COVID-19. Denies shortness of breath, cough, chest pain. Patient is also complaining of body wide lupus pain from head to toe. Denies fall or injury. PMH: Lupus, COPD, GERD PSH: Cholecystectomy, laparoscopy, spinal surgery Allergies: Haldol, azithromycin, aspirin, ampicillin, NSAIDS, Toradol Social Hx: Tobacco use, chronic opioid use Allergies: Coded Allergies: KETOROLAC TROMETHAMINE (Verified Allergy, Severe, Anaphylaxis, 10/22/18) PENICILLINS (Verified Allergy, Severe, Anaphylaxis, 10/22/18) TETRACYCLINE (Verified Allergy, Severe, Anaphylaxis, 10/22/18) HALOPERIDOL LACTATE (Verified Allergy, Intermediate, Anaphylaxis, 10/22/18) ERYTHROMYCIN BASE (Verified Allergy, Mild, 10/22/18) AMPICILLIN (Verified Allergy, Unknown, 10/22/18) ASPIRIN (Verified Allergy, Unknown, 10/22/18) AZITHROMYCIN (Unverified Allergy, Unknown, 04/17/19) IBUPROFEN (Verified Allergy, Unknown, 10/22/18) NAPROXEN (Verified Allergy, Unknown, 10/22/18) COVID-19 Screening Contact w/high risk pt: No Recent Travel to affected area: No Experienced COVID-19 symptoms?: No COVID-19 symptoms experienced: Shortness of Breath, Cough COVID-19 Testing performed DIRECTOR LEARNING SERVICES: No Nursing Documentation-PMH Past Medical History: No History, Except For Hx Cardiac Problems: Yes - lupus Hx Hypertension: No Hx Pacemaker: No Hx Asthma: No Hx COPD: Yes Hx Diabetes: No Hx Cancer: No Hx Gastrointestinal Problems: No Hx Dialysis: No Hx Neurological Problems: No Hx Cerebrovascular Accident: No Hx Seizures: No Review of Systems All Other Systems: negative except mentioned in HPI Physical Exam Vital Signs Date Time Temp Pulse Resp B/P (MAP) Pulse Ox O2 Delivery O2 Flow Rate FiO2 07/28/19 07:18 99.0 96 16 150/89 (109) 98 Room Air General: Awake and alert, no acute distress HEENT: NC/AT. EOMI. Cardiovascular: RRR. S1 and S2 normal. No murmur appreciated Resp: Normal work of breathing. No cough Abdomen: Abdomen is soft, nondistended. Tender to palpation in the epigastrium with mild tenderness in the right upper quadrant, minimal left upper quadrant no significant tenderness in the lower quadrants. Skin: Patchy areas of pigment loss and hair loss over the scalp, nasal bridge consistent with vitiligo and alopecia MSK: Normal tone and bulk. Moving all extremities. No obvious deformity. Neuro: Awake and alert. Mentating appropriately. Medical Decision Making Diagnostic Impression: Primary Impression: Abdominal pain Additional Impression: Left against medical advice ER Course This is a 68-year-old female with history of lupus and GERD presenting for evaluation of 12 hours abdominal pain and vomiting and loose stools. Differential includes but is not limited to gastritis, gastroenteritis, peptic ulcer disease, pancreatitis, hepatitis, bowel obstruction, appendicitis, chronic pain syndrome, lupus flare. Patient is well-appearing and does not appear to be in any physical discomfort. She arrives with stable vital signs and is afebrile. History of GERD and posterior tenderness in the epigastrium. Will give IV antacids, abdominal labs ordered as well as an abdominal x-ray to evaluate for possible obstruction. Laboratory Tests Test 07/28/19 07:42 White Blood Count 5.3 K/UL (4.8-10.8) Red Blood Count 4.36 M/UL (4.20-5.40) Hemoglobin 11.4 G/DL (12.0-16.0) L Hematocrit 34.0 % (37.0-47.0) L Mean Corpuscular Volume 78 FL (80-99) L Mean Corpuscular Hemoglobin 26.1 PG (27.0-31.0) L Mean Corpuscular Hemoglobin Concent 33.4 G/DL (32.0-36.0) Red Cell Distribution Width 16.7 % (11.6-14.8) H Platelet Count 241 K/UL (150-450) Mean Platelet Volume 5.0 FL (6.5-10.1) L Neutrophils (%) (Auto) 59.3 % (45.0-75.0) Lymphocytes (%) (Auto) 29.6 % (20.0-45.0) Monocytes (%) (Auto) 7.9 % (1.0-10.0) Eosinophils (%) (Auto) 2.4 % (0.0-3.0) Basophils (%) (Auto) 0.8 % (0.0-2.0) Urine Color Pale yellow Urine Appearance Clear Urine pH 7 (4.5-8.0) Urine Specific [place] 1.010 (1.005-1.035) Urine Protein Negative (NEGATIVE) Urine Glucose (UA) Negative (NEGATIVE) Urine Ketones Negative (NEGATIVE) Urine Blood Negative (NEGATIVE) Urine Nitrite Negative (NEGATIVE) Urine Bilirubin Negative (NEGATIVE) Urine Urobilinogen 1 MG/DL (0.0-1.0) H Urine Leukocyte Esterase Negative (NEGATIVE) Sodium Level 143 MMOL/L (136-145) Potassium Level 3.5 MMOL/L (3.5-5.1) Chloride Level 107 MMOL/L (98-107) Carbon Dioxide Level 26 MMOL/L (21-32) Anion Gap 10 mmol/L (5-15) Blood Urea Nitrogen 11 mg/dL (7-18) Creatinine 0.7 MG/DL (0.55-1.30) Estimated Glomerular Filtration Rate > 60 mL/min (>60) Glucose Level 95 MG/DL (74-106) Calcium Level 8.4 MG/DL (8.5-10.1) L Total Bilirubin 1.1 MG/DL (0.2-1.0) H Direct Bilirubin 0.2 MG/DL (0.0-0.3) Aspartate Amino Transferase (AST) 21 U/L (15-37) Alanine Aminotransferase (ALT) 21 U/L (12-78) Alkaline Phosphatase 75 U/L (46-116) Total Protein 6.7 G/DL (6.4-8.2) Albumin 3.4 G/DL (3.4-5.0) Globulin 3.3 g/dL Albumin/Globulin Ratio 1.0 (1.0-2.7) Lipase 175 U/L (73-393) Urine Opiates Screen Negative (NEGATIVE) Urine Barbiturates Screen Negative (NEGATIVE) Phencyclidine (PCP) Screen Negative (NEGATIVE) Urine Amphetamines Screen Negative (NEGATIVE) Urine Benzodiazepines Screen Negative (NEGATIVE) Urine Cocaine Screen Negative (NEGATIVE) Urine Marijuana (THC) Screen Negative (NEGATIVE) Serum Alcohol < 3 mg/dL Reevaluation Time: 08:50 Last Vital Signs Date Time Temp Pulse Resp B/P (MAP) Pulse Ox O2 Delivery O2 Flow Rate FiO2 07/28/19 07:29 98 18 07/28/19 07:21 99.0 150/96 98 Room Air Reevaluation Impression Alerting by nursing staff that the patient had left the emergency department while I was with another patient. I did not have a chance to discuss her leaving or her lab results. Labs have returned within normal limits. Patient is prescribed chronic opiates but talk screen is negative. Abdominal x-ray was not performed prior to patient departure. Disposition: AGAINST MEDICAL ADVICE Condition: Stable Filemon Winters MD July 28, 2019 07:37
[2019-07-28 07:59] LABS: APPEARANCE,URINE CLEAR; BILIRUBIN, URINE NEGATIVE (NEGATIVE); COLOR,URINE PALE YELLOW; GLUCOSE, URINE (UA) NEGATIVE (NEGATIVE); KETONES,URINE NEGATIVE (NEGATIVE); LEUKOCYTE ESTERASE ,URINE NEGATIVE (NEGATIVE); NITRITE,URINE NEGATIVE (NEGATIVE); PH,URINE 7 (4.5-8.0); PROTEIN,URINE NEGATIVE (NEGATIVE); UROBILINOGEN,URINE 1 MG/DL (0.0-1.0)
[2019-07-28] MEDS ORDERED: Dicyclomine HCl 10mg/5ml oral soln ORAL ONE (08:00)
[2019-07-28] MEDS ORDERED: Mylanta II UD 30ml ORAL ONE (08:00)
[2019-07-28] MEDS ORDERED: HYDROcodone/Acetamin 7.5/325 tab ORAL ONE (08:00)
[2019-07-28] MEDS ORDERED: Lidocaine 2% Visc 15ml soln ORAL ONE (08:00)
[2019-07-28 08:01] LABS: BASOPHILS % (AUTO) 0.8 % (0.0-2.0); EOSINOPHILS % (AUTO) 2.4 % (0.0-3.0); HEMOGLOBIN 11.4 G/DL (12.0-16.0); LYMPHOCYTES % (AUTO) 29.6 % (20.0-45.0); MEAN CORPUSCULAR VOLUME 78 FL (80-99); MONOCYTES % (AUTO) 7.9 % (1.0-10.0); NEUTROPHILS % (AUTO) 59.3 % (45.0-75.0); PLATELET COUNT 241 K/UL (150-450); RED BLOOD COUNT 4.36 M/UL (4.20-5.40); RED CELL DISTRIBUTION WIDTH 16.7 % (11.6-14.8); WHITE BLOOD COUNT 5.3 K/UL (4.8-10.8)
[2019-07-28] MEDS ORDERED: NS 275ml ONE (08:01)
[2019-07-28] MEDS ORDERED: Tubing IV Secondary IV ONE (08:01)
[2019-07-28 08:09] LABS: ANION GAP 10 mmol/L (5-15); BLOOD UREA NITROGEN 11 mg/dL (7-18); CALCIUM 8.4 MG/DL (8.5-10.1); CARBON DIOXIDE 26 MMOL/L (21-32); CHLORIDE 107 MMOL/L (98-107); CREATININE 0.7 MG/DL (0.55-1.30); POTASSIUM 3.5 MMOL/L (3.5-5.1); SODIUM 143 MMOL/L (136-145)
[2019-07-28 08:22] LABS: ALANINE AMINOTRANSFERASE 21 U/L (12-78); ALBUMIN 3.4 G/DL (3.4-5.0); ALKALINE PHOSPHATASE 75 U/L (46-116); ASPARTATE AMINO TRANSFERASE 21 U/L (15-37); BILIRUBIN,TOTAL 1.1 MG/DL (0.2-1.0)
[2019-07-28 08:24] LABS: BILIRUBIN,DIRECT 0.2 MG/DL (0.0-0.3)
[2019-07-28 08:30] VITALS: BP 150/96
== END 2019-07-28 08:28 | disposition left against medical advice (07) ==
LOC: EDBD 07:21 → EMR 08:00
DX: R10.9 Unspecified abdominal pain (principal); K21.9 Gastro-esophageal reflux disease without esophagitis; Z88.0 Allergy status to penicillin; Z88.6 Allergy status to analgesic agent; Z88.8 Allergy status to other drugs, medicaments and biological substances; J44.9 Chronic obstructive pulmonary disease, unspecified; Z90.49 Acquired absence of other specified parts of digestive tract; F17.200 Nicotine dependence, unspecified, uncomplicated
CPT/HCPCS: 36415; 74018; 80053; 80307; 81003; 82248; 83690; 85025; 99283; G0480; J7050

== ENCOUNTER 2019-08-10 06:53 | Emergency (ER) | payer MEDICARE, OTHER ==
[~2019-08-10] VITALS: Ht 170.2 cm; Wt 54.4 kg
[2019-08-10 06:57] VITALS: BP 157/88
[2019-08-10] MEDS ORDERED: CARISOPRODOL350 MG ORAL (07:02)
[2019-08-10] MEDS ORDERED: Lidocaine 2% Visc 15ml soln ORAL ONE (07:15)
[2019-08-10] MEDS ORDERED: Mylanta II UD 30ml ORAL ONE (07:15)
[2019-08-10 07:48] LABS: APPEARANCE,URINE CLEAR; BILIRUBIN, URINE NEGATIVE (NEGATIVE); COLOR,URINE PALE YELLOW; GLUCOSE, URINE (UA) NEGATIVE (NEGATIVE); KETONES,URINE NEGATIVE (NEGATIVE); LEUKOCYTE ESTERASE ,URINE NEGATIVE (NEGATIVE); NITRITE,URINE NEGATIVE (NEGATIVE); PH,URINE 7 (4.5-8.0); PROTEIN,URINE NEGATIVE (NEGATIVE); UROBILINOGEN,URINE NORMAL MG/DL (0.0-1.0)
[2019-08-10 07:49] LABS: BASOPHILS % (AUTO) 1.2 % (0.0-2.0); HEMATOCRIT 39.3 % (37.0-47.0); HEMOGLOBIN 11.7 G/DL (12.0-16.0); MEAN CORPUSCULAR VOLUME 85 FL (80-99); MONOCYTES % (AUTO) 8.6 % (1.0-10.0); NEUTROPHILS % (AUTO) 60.3 % (45.0-75.0); PLATELET COUNT 279 K/UL (150-450); RED BLOOD COUNT 4.65 M/UL (4.20-5.40); RED CELL DISTRIBUTION WIDTH 17.4 % (11.6-14.8); WHITE BLOOD COUNT 5.2 K/UL (4.8-10.8)
[2019-08-10] MEDS ORDERED: oxyCODONE 15mg IR tab ORAL ONE (08:00)
[2019-08-10 08:02] LABS: ALANINE AMINOTRANSFERASE 22 U/L (12-78); ALBUMIN 3.1 G/DL (3.4-5.0); ALBUMIN/GLOBULIN RATIO 0.7 (1.0-2.7); ALKALINE PHOSPHATASE 82 U/L (46-116); ANION GAP 10 mmol/L (5-15); ASPARTATE AMINO TRANSFERASE 90 U/L (15-37); BILIRUBIN,TOTAL 0.8 MG/DL (0.2-1.0); BLOOD UREA NITROGEN 15 mg/dL (7-18); CALCIUM 8.7 MG/DL (8.5-10.1); CARBON DIOXIDE 26 MMOL/L (21-32); CHLORIDE 106 MMOL/L (98-107); CREATININE 0.8 MG/DL (0.55-1.30); SODIUM 140 MMOL/L (136-145)
[2019-08-10 08:03] LABS: POTASSIUM 7.4 MMOL/L (3.5-5.1)
--- NOTE | 2019-08-10 08:43 | Emergency Room Report ---
History of Present Illness General Chief Complaint: Abdominal Pain Source: Patient, Medical Record Present Illness HPI This patient is well-known to [facility]. She has a history of chronic pain and opioid dependence. She has a history of lupus and states that she has cysts in her colon. Regardless, she states that the pain in her abdomen is related to her lupus and the cysts. She states she also has chronic right shoulder pain. She is on oxycodone 30 mg regularly. She states she has been out of her oxycodone for 3 days. She states that she cannot fill her oxycodone until next week. She states that this is her usual chronic pain. She has no new symptoms. She is requesting opioid pain medications. She denies recent illness. She denies cough or congestion. She denies fever or chills. She denies dysuria or hematuria. She has no other complaints. Allergies: Coded Allergies: KETOROLAC TROMETHAMINE (Verified Allergy, Severe, Anaphylaxis, 10/22/18) PENICILLINS (Verified Allergy, Severe, Anaphylaxis, 10/22/18) TETRACYCLINE (Verified Allergy, Severe, Anaphylaxis, 10/22/18) HALOPERIDOL LACTATE (Verified Allergy, Intermediate, Anaphylaxis, 10/22/18) ERYTHROMYCIN BASE (Verified Allergy, Mild, 10/22/18) AMPICILLIN (Verified Allergy, Unknown, 10/22/18) ASPIRIN (Verified Allergy, Unknown, 10/22/18) AZITHROMYCIN (Unverified Allergy, Unknown, 04/17/19) IBUPROFEN (Verified Allergy, Unknown, 10/22/18) NAPROXEN (Verified Allergy, Unknown, 10/22/18) COVID-19 Screening Contact w/high risk pt: No Recent Travel to affected area: No Experienced COVID-19 symptoms?: No COVID-19 symptoms experienced: Cough COVID-19 Testing performed NURSE AUDITOR: Yes COVID-19 Screening: Negative COVID-19 COVID-19 Testing Source: @ [place] ON 07/16 Patient History Past Medical History: see triage record, CAD, COPD, other - SLE, HEP C Social History: Denies: smoking, alcohol use, drug use Reviewed Nursing Documentation: PMH: Agreed; PSxH: Agreed Nursing Documentation-PMH Hx Cardiac Problems: Yes - lupus Hx Hypertension: No Hx Pacemaker: No Hx Asthma: No Hx COPD: Yes Hx Diabetes: No Hx Cancer: No Hx Gastrointestinal Problems: No Hx Dialysis: No Hx Neurological Problems: No Hx Cerebrovascular Accident: No Hx Seizures: No Review of Systems All Other Systems: negative except mentioned in HPI Physical Exam Vital Signs Date Time Temp Pulse Resp B/P (MAP) Pulse Ox O2 Delivery O2 Flow Rate FiO2 08/10/19 06:49 99.0 92 18 162/89 (113) 99 Room Air 08/10/19 06:57 98 Sp02 EP Interpretation: reviewed, normal General Appearance: no apparent distress, alert, GCS 15, non-toxic Head: normocephalic, atraumatic ENT: hearing grossly normal, no angioedema, normal voice Neck: normal inspection Respiratory: no respiratory distress, no retraction, no accessory muscle use, speaking full sentences Cardiovascular #1: regular rate, rhythm, no edema Gastrointestinal: normal bowel sounds, soft, non-distended, no guarding, no rebound, tenderness - TTP diffusely Rectal: deferred Musculoskeletal: back normal, normal range of motion, gait/station normal, non- tender Neurologic: alert, motor strength/tone normal, oriented x3, sensory intact, responsive, speech normal Psychiatric: judgement/insight normal, memory normal, mood/affect normal, no suicidal/homicidal ideation Medical Decision Making Diagnostic Impression: Primary Impression: Chronic pain ER Course This patient has known chronic pain. The patient herself states that this is her usual pain and that she is out of her oxycodone. She is requesting pain medication. I educated the patient that I will not be giving the patient IV narcotics for chronic pain. I did offer the patient her usual oxycodone 30 mg tablet which she agreed to. I educated the patient that she needed to be receiving her narcotic pain medications especially at these high doses under the care of a pain management physician. It is incredibly dangerous to be on high doses of narcotics. Regardless, the patient's work-up in the emergency department is benign. Overall her presentation is consistent with her chronic pain. I do not feel that this patient needs any further emergency department care. The patient is given close return precautions and follow-up instructions. Laboratory Tests Test 08/10/19 07:30 08/10/19 08:10 White Blood Count 5.2 K/UL (4.8-10.8) Red Blood Count 4.65 M/UL (4.20-5.40) Hemoglobin 11.7 G/DL (12.0-16.0) L Hematocrit 39.3 % (37.0-47.0) Mean Corpuscular Volume 85 FL (80-99) Mean Corpuscular Hemoglobin 25.3 PG (27.0-31.0) L Mean Corpuscular Hemoglobin Concent 29.9 G/DL (32.0-36.0) L Red Cell Distribution Width 17.4 % (11.6-14.8) H Platelet Count 279 K/UL (150-450) Mean Platelet Volume 6.0 FL (6.5-10.1) L Neutrophils (%) (Auto) 60.3 % (45.0-75.0) Lymphocytes (%) (Auto) 29.0 % (20.0-45.0) Monocytes (%) (Auto) 8.6 % (1.0-10.0) Eosinophils (%) (Auto) 1.0 % (0.0-3.0) Basophils (%) (Auto) 1.2 % (0.0-2.0) Urine Color Pale yellow Urine Appearance Clear Urine pH 7 (4.5-8.0) Urine Specific [place] 1.010 (1.005-1.035) Urine Protein Negative (NEGATIVE) Urine Glucose (UA) Negative (NEGATIVE) Urine Ketones Negative (NEGATIVE) Urine Blood Negative (NEGATIVE) Urine Nitrite Negative (NEGATIVE) Urine Bilirubin Negative (NEGATIVE) Urine Urobilinogen Normal MG/DL (0.0-1.0) Urine Leukocyte Esterase Negative (NEGATIVE) Sodium Level 140 MMOL/L (136-145) Potassium Level 7.4 MMOL/L (3.5-5.1) *H 3.6 MMOL/L (3.5-5.1) # Chloride Level 106 MMOL/L (98-107) Carbon Dioxide Level 26 MMOL/L (21-32) Anion Gap 10 mmol/L (5-15) Blood Urea Nitrogen 15 mg/dL (7-18) Creatinine 0.8 MG/DL (0.55-1.30) Estimated Glomerular Filtration Rate > 60 mL/min (>60) Glucose Level 94 MG/DL (74-106) Calcium Level 8.7 MG/DL (8.5-10.1) Total Bilirubin 0.8 MG/DL (0.2-1.0) Aspartate Amino Transferase (AST) 90 U/L (15-37) H Alanine Aminotransferase (ALT) 22 U/L (12-78) Alkaline Phosphatase 82 U/L (46-116) Total Protein 7.6 G/DL (6.4-8.2) Albumin 3.1 G/DL (3.4-5.0) L Globulin 4.5 g/dL Albumin/Globulin Ratio 0.7 (1.0-2.7) L Lipase 119 U/L (73-393) Urine Opiates Screen Negative (NEGATIVE) Urine Barbiturates Screen Negative (NEGATIVE) Phencyclidine (PCP) Screen Negative (NEGATIVE) Urine Amphetamines Screen Negative (NEGATIVE) Urine Benzodiazepines Screen Negative (NEGATIVE) Urine Cocaine Screen Negative (NEGATIVE) Urine Marijuana (THC) Screen Negative (NEGATIVE) Last Vital Signs Date Time Temp Pulse Resp B/P (MAP) Pulse Ox O2 Delivery O2 Flow Rate FiO2 08/10/19 06:57 89 18 Room Air 98 08/10/19 06:57 98.7 157/88 99 Status: improved Disposition: HOME, SELF-CARE Condition: Improved Referrals: NON PHYSICIAN (PCP) Patient Instructions: Abdominal Pain, Adult Rachel Shirley DO Aug 10, 2019 08:43
[2019-08-10 08:52] VITALS: BP 117/70
[2019-08-10 09:11] VITALS: BP 122/76
== END 2019-08-10 09:11 | disposition home or self-care (01) ==
LOC: EDBD 06:53 → EMR 07:39
DX: G89.29 Other chronic pain (principal); R10.9 Unspecified abdominal pain; M25.511 Pain in right shoulder; Z88.0 Allergy status to penicillin; Z88.6 Allergy status to analgesic agent; Z88.8 Allergy status to other drugs, medicaments and biological substances; J44.9 Chronic obstructive pulmonary disease, unspecified; Z86.19 Personal history of other infectious and parasitic diseases; I25.10 Atherosclerotic heart disease of native coronary artery without angina pectoris
CPT/HCPCS: 36415; 80053; 80307; 81003; 83690; 84132; 85025; 96361; 96374; 96375; 99284; J2405; J7030; S0028

== ENCOUNTER 2019-08-15 07:06 | Emergency (ER) | payer MEDICARE, MEDICAID ==
[~2019-08-15] VITALS: Ht 162.6 cm; Wt 52.2 kg
[2019-08-15 07:13] VITALS: BP 152/84
[2019-08-15] MEDS ORDERED: Mylanta II UD 30ml ORAL ONE (07:15)
[2019-08-15] MEDS ORDERED: Lidocaine 2% Visc 15ml soln ORAL ONE (07:15)
[2019-08-15] MEDS ORDERED: Metoclopramide 10mg/2ml Inj IM ONE (07:15)
[2019-08-15] MEDS ORDERED: Morphine Sulfate 2mg/ml Inj(IV/IM USE ONLY) IM ONE (07:15)
[2019-08-15] MEDS ORDERED: DiphenhydrAMINE 50mg/ml Inj IM ONE (07:15)
--- NOTE | 2019-08-15 07:22 | Emergency Room Report ---
History of Present Illness General Chief Complaint: Abdominal Pain Source: Patient, EMS Present Illness HPI Patient was brought by EMS. She is complaining about abdominal pain. She has a history of systemic lupus erythematosus. She has had multiple bouts of abdominal pain in the past. She complains of epigastric pain that radiates to the right upper quadrant. She was vomiting earlier today. She rates the pain 8 /10 at this time and burning and pressure with some aching. She denies fevers or chills. She did not vomit any blood. She denies any diarrhea or melena. She has been urinating frequently but denies dysuria. She states she took her last Tylenol No. 4 yesterday. Patient also has COPD. She has been using her inhaler. She denies productive cough at this time. She has been wheezing. The patient was seen August 09 for chronic pain. She was on oxycodone 30 mg at that time. She had run out prior to presenting to the emergency department. Lab evaluation was performed. In addition she was given oxycodone orally. She was advised that use of opiates for chronic pain is dangerous. She walks with a walker. Patient suffers from chronic anxiety. No sore throat, chest pain, palpitations, depression, visual changes, dizziness , headache. Allergies: Coded Allergies: KETOROLAC TROMETHAMINE (Verified Allergy, Severe, Anaphylaxis, 10/22/18) PENICILLINS (Verified Allergy, Severe, Anaphylaxis, 10/22/18) TETRACYCLINE (Verified Allergy, Severe, Anaphylaxis, 10/22/18) HALOPERIDOL LACTATE (Verified Allergy, Intermediate, Anaphylaxis, 10/22/18) ERYTHROMYCIN BASE (Verified Allergy, Mild, 10/22/18) AMPICILLIN (Verified Allergy, Unknown, 10/22/18) ASPIRIN (Verified Allergy, Unknown, 10/22/18) AZITHROMYCIN (Unverified Allergy, Unknown, 04/17/19) IBUPROFEN (Verified Allergy, Unknown, 10/22/18) NAPROXEN (Verified Allergy, Unknown, 10/22/18) COVID-19 Screening Contact w/high risk pt: No Recent Travel to affected area: No Experienced COVID-19 symptoms?: No COVID-19 symptoms experienced: Shortness of Breath, Cough COVID-19 Testing performed DISTRICT ENGINEER: No Patient History Past Medical History: see triage record, old chart reviewed, GERD, other - Opiate dependence Social History: Denies: smoking Social History Narrative Last Menstrual Period: NA Reviewed Nursing Documentation: PMH: Agreed; PSxH: Agreed Nursing Documentation-PMH Hx Cardiac Problems: Yes - lupus Hx Hypertension: No Hx Pacemaker: No Hx Asthma: No Hx COPD: Yes - EMPHYSEMA Hx Diabetes: No Hx Cancer: No Hx Gastrointestinal Problems: No Hx Dialysis: No Hx Neurological Problems: Yes - LUPUS Hx Cerebrovascular Accident: No Hx Seizures: No Review of Systems All Other Systems: negative except mentioned in HPI Physical Exam Vital Signs Date Time Temp Pulse Resp B/P (MAP) Pulse Ox O2 Delivery O2 Flow Rate FiO2 08/15/19 06:57 98.4 106 18 152/84 (106) 91 Room Air Sp02 EP Interpretation: reviewed, normal General Appearance: no apparent distress - Complaining pain, GCS 15, non-toxic , Chronically Ill Head: normocephalic Eyes: bilateral eye normal inspection, bilateral eye PERRL, bilateral eye EOMI ENT: other - Mask Neck: supple Respiratory: lungs clear, normal breath sounds Cardiovascular #1: regular rate, rhythm Cardiovascular #2: 2+ radial (R) Gastrointestinal: no mass, non-distended, no rebound, tenderness - Epigastric Genitourinary: no CVA tenderness Musculoskeletal: normal range of motion Neurologic: alert, oriented x3, grossly normal Psychiatric: anxious Skin: warm/dry, other - Malar rash and scalp alopecia Medical Decision Making Diagnostic Impression: Primary Impression: Abdominal pain Qualified Codes: R10.13 - Epigastric pain Additional Impressions: Drug-seeking behavior Lupus ER Course Patient with abdominal pain with history of chronic pain and lupus. Differential includes GERD, gastritis, pancreatitis, opiate withdrawal amongst others. Patient will be evaluated with EKG and labs. Patient will receive IM Reglan and Benadryl. She will be given Mylanta and viscous lidocaine. Labs unremarkable except for minimally low potassium. The patient was pressuring to get IM medication. I told her I would consider giving her a pill if the other medications did not work. The patient was observed to walk out of the emergency department. Laboratory Tests Test 08/15/19 07:40 White Blood Count 4.4 K/UL (4.8-10.8) L Red Blood Count 4.54 M/UL (4.20-5.40) Hemoglobin 11.5 G/DL (12.0-16.0) L Hematocrit 38.7 % (37.0-47.0) Mean Corpuscular Volume 85 FL (80-99) Mean Corpuscular Hemoglobin 25.4 PG (27.0-31.0) L Mean Corpuscular Hemoglobin Concent 29.8 G/DL (32.0-36.0) L Red Cell Distribution Width 19.3 % (11.6-14.8) H Platelet Count 114 K/UL (150-450) L Mean Platelet Volume 6.6 FL (6.5-10.1) Neutrophils (%) (Auto) 56.1 % (45.0-75.0) Lymphocytes (%) (Auto) 33.8 % (20.0-45.0) Monocytes (%) (Auto) 7.6 % (1.0-10.0) Eosinophils (%) (Auto) 1.4 % (0.0-3.0) Basophils (%) (Auto) 1.2 % (0.0-2.0) Urine Color Pale yellow Urine Appearance Clear Urine pH 7 (4.5-8.0) Urine Specific [place] 1.010 (1.005-1.035) Urine Protein Negative (NEGATIVE) Urine Glucose (UA) Negative (NEGATIVE) Urine Ketones Negative (NEGATIVE) Urine Blood Negative (NEGATIVE) Urine Nitrite Negative (NEGATIVE) Urine Bilirubin Negative (NEGATIVE) Urine Urobilinogen 1 MG/DL (0.0-1.0) H Urine Leukocyte Esterase Negative (NEGATIVE) Sodium Level 142 MMOL/L (136-145) Potassium Level 3.3 MMOL/L (3.5-5.1) L Chloride Level 108 MMOL/L (98-107) H Carbon Dioxide Level 23 MMOL/L (21-32) Anion Gap 11 mmol/L (5-15) Blood Urea Nitrogen 17 mg/dL (7-18) Creatinine 0.9 MG/DL (0.55-1.30) Estimated Glomerular Filtration Rate > 60 mL/min (>60) Glucose Level 102 MG/DL (74-106) Calcium Level 8.6 MG/DL (8.5-10.1) Total Bilirubin 0.4 MG/DL (0.2-1.0) Aspartate Amino Transferase (AST) 19 U/L (15-37) Alanine Aminotransferase (ALT) 21 U/L (12-78) Alkaline Phosphatase 96 U/L (46-116) Total Protein 6.6 G/DL (6.4-8.2) Albumin 3.1 G/DL (3.4-5.0) L Globulin 3.5 g/dL Albumin/Globulin Ratio 0.9 (1.0-2.7) L Lipase 166 U/L (73-393) EKG Diagnostic Results Rate: normal Rhythm: NSR ST Segments: no acute changes - Left atrial enlargement and left ventricular hypertrophy Rhythm Strip Diag. Results EP Interpretation: yes Rhythm: NSR, no PVC's, no ectopy Last Vital Signs Date Time Temp Pulse Resp B/P (MAP) Pulse Ox O2 Delivery O2 Flow Rate FiO2 08/15/19 07:13 106 18 Room Air 08/15/19 07:13 98.4 152/84 91 Status: improved Disposition: ELOPED Condition: Improved Karl Guan MD Aug 15, 2019 07:22
[2019-08-15 08:02] LABS: BASOPHILS % (AUTO) 1.2 % (0.0-2.0); EOSINOPHILS % (AUTO) 1.4 % (0.0-3.0); HEMATOCRIT 38.7 % (37.0-47.0); HEMOGLOBIN 11.5 G/DL (12.0-16.0); LYMPHOCYTES % (AUTO) 33.8 % (20.0-45.0); MEAN CORPUSCULAR VOLUME 85 FL (80-99); MONOCYTES % (AUTO) 7.6 % (1.0-10.0); NEUTROPHILS % (AUTO) 56.1 % (45.0-75.0); PLATELET COUNT 114 K/UL (150-450); RED BLOOD COUNT 4.54 M/UL (4.20-5.40); RED CELL DISTRIBUTION WIDTH 19.3 % (11.6-14.8); WHITE BLOOD COUNT 4.4 K/UL (4.8-10.8)
[2019-08-15 08:03] LABS: APPEARANCE,URINE CLEAR; BILIRUBIN, URINE NEGATIVE (NEGATIVE); COLOR,URINE PALE YELLOW; GLUCOSE, URINE (UA) NEGATIVE (NEGATIVE); KETONES,URINE NEGATIVE (NEGATIVE); LEUKOCYTE ESTERASE ,URINE NEGATIVE (NEGATIVE); NITRITE,URINE NEGATIVE (NEGATIVE); PH,URINE 7 (4.5-8.0); PROTEIN,URINE NEGATIVE (NEGATIVE); UROBILINOGEN,URINE 1 MG/DL (0.0-1.0)
[2019-08-15 08:14] LABS: ANION GAP 11 mmol/L (5-15); BLOOD UREA NITROGEN 17 mg/dL (7-18); CALCIUM 8.6 MG/DL (8.5-10.1); CARBON DIOXIDE 23 MMOL/L (21-32); CHLORIDE 108 MMOL/L (98-107); CREATININE 0.9 MG/DL (0.55-1.30); POTASSIUM 3.3 MMOL/L (3.5-5.1); SODIUM 142 MMOL/L (136-145)
[2019-08-15 08:15] VITALS: BP 152/84
[2019-08-15 08:18] LABS: ALANINE AMINOTRANSFERASE 21 U/L (12-78); ALBUMIN 3.1 G/DL (3.4-5.0); ALBUMIN/GLOBULIN RATIO 0.9 (1.0-2.7); ALKALINE PHOSPHATASE 96 U/L (46-116); ASPARTATE AMINO TRANSFERASE 19 U/L (15-37); BILIRUBIN,TOTAL 0.4 MG/DL (0.2-1.0)
== END 2019-08-15 08:50 | disposition left against medical advice (07) ==
LOC: EDBD 07:06 → EMR 08:45
DX: R10.13 Epigastric pain (principal); Z76.5 Malingerer [conscious simulation]; M32.9 Systemic lupus erythematosus, unspecified; J44.9 Chronic obstructive pulmonary disease, unspecified; Z79.52 Long term (current) use of systemic steroids; Z88.1 Allergy status to other antibiotic agents; Z88.6 Allergy status to analgesic agent; Z88.8 Allergy status to other drugs, medicaments and biological substances; Z53.29 Procedure and treatment not carried out because of patient's decision for other reasons
CPT/HCPCS: 36415; 80053; 81003; 83690; 85025; 93005; 96372; 99283; J1200; J2765

== ENCOUNTER 2019-09-08 09:10 | Inpatient (IN) | payer MEDICARE, OTHER ==
[~2019-09-08] VITALS: Ht 170.2 cm; Wt 55.8 kg
[2019-09-08 09:25] VITALS: BP 155/88
[2019-09-08] MEDS ORDERED: Albuterol/Ipratropium 3ml neb HHN ONE (09:30)
[2019-09-08 10:03] LABS: APPEARANCE,URINE CLEAR; BILIRUBIN, URINE NEGATIVE (NEGATIVE); COLOR,URINE PALE YELLOW; GLUCOSE, URINE (UA) NEGATIVE (NEGATIVE); KETONES,URINE 2+ (NEGATIVE); LEUKOCYTE ESTERASE ,URINE 1+ (NEGATIVE); NITRITE,URINE NEGATIVE (NEGATIVE); PH,URINE 7 (4.5-8.0); PROTEIN,URINE NEGATIVE (NEGATIVE); UROBILINOGEN,URINE 1 MG/DL (0.0-1.0)
[2019-09-08 10:15] LABS: BASOPHILS % (AUTO) 1.3 % (0.0-2.0); EOSINOPHILS % (AUTO) 1.4 % (0.0-3.0); HEMATOCRIT 33.9 % (37.0-47.0); HEMOGLOBIN 10.5 G/DL (12.0-16.0); LYMPHOCYTES % (AUTO) 25.3 % (20.0-45.0); MEAN CORPUSCULAR VOLUME 84 FL (80-99); MONOCYTES % (AUTO) 12.5 % (1.0-10.0); NEUTROPHILS % (AUTO) 59.6 % (45.0-75.0); PLATELET COUNT 242 K/UL (150-450); RED BLOOD COUNT 4.01 M/UL (4.20-5.40); RED CELL DISTRIBUTION WIDTH 18.5 % (11.6-14.8); WHITE BLOOD COUNT 4.8 K/UL (4.8-10.8)
[2019-09-08 10:19] LABS: ANION GAP 12 mmol/L (5-15); BLOOD UREA NITROGEN 14 mg/dL (7-18); CALCIUM 8.1 MG/DL (8.5-10.1); CARBON DIOXIDE 26 MMOL/L (21-32); CHLORIDE 107 MMOL/L (98-107); CREATININE 0.7 MG/DL (0.55-1.30); SODIUM 144 MMOL/L (136-145)
[2019-09-08] MEDS ORDERED: HYDROcodone/Acetamin 5/325 tab ORAL ONE (10:30)
[2019-09-08 10:31] LABS: ALANINE AMINOTRANSFERASE 29 U/L (12-78); ALBUMIN 3.3 G/DL (3.4-5.0); ALKALINE PHOSPHATASE 79 U/L (46-116); ASPARTATE AMINO TRANSFERASE 42 U/L (15-37); BILIRUBIN,TOTAL 0.7 MG/DL (0.2-1.0)
[2019-09-08 11:52] VITALS: BP 133/74
--- NOTE | 2019-09-08 11:54 | Diagnostic Imaging Report ---
EXAM: XR Chest, 1 View CLINICAL HISTORY: SOB TECHNIQUE: Frontal view of the chest. COMPARISON: July 24, 2019. FINDINGS: Prominent cardiac silhouette with vascular congestion. Hyperinflated lungs with emphysematous changes, most prominent in the right upper to midlung. No large pleural effusions. No definite focal consolidative process. IMPRESSION: Prominent cardiac silhouette with vascular congestion. COPD. No definite focal consolidative process or pleural effusions.
--- NOTE | 2019-09-08 13:54 | Emergency Room Report ---
History of Present Illness General Chief Complaint: Generalized Weakness Source: Patient Present Illness HPI Patient is a 68-year-old female presents after increased generalized weakness. Reports having prior history of lupus. Reports feeling weak all over. Had not been having any vomiting. Reports having generalized increased body pain. Chronic arthritis.Patient had increased generalized weakness and increased cough. Patient does normally use oxygen at home. Allergies: Coded Allergies: KETOROLAC TROMETHAMINE (Verified Allergy, Severe, Anaphylaxis, 10/22/18) PENICILLINS (Verified Allergy, Severe, Anaphylaxis, 10/22/18) TETRACYCLINE (Verified Allergy, Severe, Anaphylaxis, 10/22/18) HALOPERIDOL LACTATE (Verified Allergy, Intermediate, Anaphylaxis, 10/22/18) ERYTHROMYCIN BASE (Verified Allergy, Mild, 10/22/18) AMPICILLIN (Verified Allergy, Unknown, 10/22/18) ASPIRIN (Verified Allergy, Unknown, 10/22/18) AZITHROMYCIN (Unverified Allergy, Unknown, 04/17/19) IBUPROFEN (Verified Allergy, Unknown, 10/22/18) NAPROXEN (Verified Allergy, Unknown, 10/22/18) Uncoded Allergies: PENICILLIN (Allergy, Unknown, 09/08/19) COVID-19 Screening Contact w/high risk pt: No Recent Travel to affected area: No Experienced COVID-19 symptoms?: Yes COVID-19 symptoms experienced: Shortness of Breath, Cough COVID-19 Testing performed CRM ANALYST: No Patient History Past Medical History: see triage record Last Menstrual Period: na Reviewed Nursing Documentation: PMH: Agreed; PSxH: Agreed Nursing Documentation-PMH Past Medical History: No History, Except For Hx Hypertension: No Hx Pacemaker: No Hx Asthma: No Hx COPD: Yes Hx Diabetes: No Hx Cancer: No Hx Gastrointestinal Problems: No Hx Dialysis: No Hx Neurological Problems: No Hx Cerebrovascular Accident: No Hx Seizures: No Review of Systems All Other Systems: negative except mentioned in HPI Physical Exam Vital Signs Date Time Temp Pulse Resp B/P (MAP) Pulse Ox O2 Delivery O2 Flow Rate FiO2 09/08/19 09:05 99.0 89 18 155/88 (110) 98 Room Air 09/08/19 10:37 21 General Appearance: alert, GCS 15, non-toxic, Chronically Ill ENT: hearing grossly normal Neck: limited range of motion Respiratory: rales Cardiovascular #1: normal peripheral pulses, no edema Gastrointestinal: normal inspection, soft Musculoskeletal: back normal, other Neurologic: alert, motor strength/tone normal, battery service technician III-XII nml as tested, oriented x3 Psychiatric: normal inspection, judgement/insight normal Skin: other - malar rash Medical Decision Making Diagnostic Impression: Primary Impression: COPD (chronic obstructive pulmonary disease) Additional Impressions: SLE exacerbation CHF (congestive heart failure) ER Course Patient presented for increased generalized weakness and difficulty with breathing. Differential diagnosis include was not limited to COPD, myocardial infarction, coronavirus infection, lupus flare among others. Because of complexity of patient's case laboratory tests and imaging studies were ordered. Patient noted to have prior history of lupus as well as COPD. Chest x-ray showed some evidence of cardiomegaly. See radiology report for full details. Laboratory testing was also notable for markedly elevated BNP. Troponin was noted to be negative. Patient was noted to have chronic pain. Patient was given IV steroids as well as breathing treatment. Dr. Flakito Reyes was contacted for inpatient management due to panel physician. Labs Test 09/08/19 09:40 09/08/19 10:17 White Blood Count 4.8 K/UL (4.8-10.8) Red Blood Count 4.01 M/UL (4.20-5.40) Hemoglobin 10.5 G/DL (12.0-16.0) Hematocrit 33.9 % (37.0-47.0) Mean Corpuscular Volume 84 FL (80-99) Mean Corpuscular Hemoglobin 26.2 PG (27.0-31.0) Mean Corpuscular Hemoglobin Concent 31.0 G/DL (32.0-36.0) Red Cell Distribution Width 18.5 % (11.6-14.8) Platelet Count 242 K/UL (150-450) Mean Platelet Volume 6.2 FL (6.5-10.1) Neutrophils (%) (Auto) 59.6 % (45.0-75.0) Lymphocytes (%) (Auto) 25.3 % (20.0-45.0) Monocytes (%) (Auto) 12.5 % (1.0-10.0) Eosinophils (%) (Auto) 1.4 % (0.0-3.0) Basophils (%) (Auto) 1.3 % (0.0-2.0) Urine Color Pale yellow Urine Appearance Clear Urine pH 7 (4.5-8.0) Urine Specific Hext 1.010 (1.005-1.035) Urine Protein Negative (NEGATIVE) Urine Glucose (UA) Negative (NEGATIVE) Urine Ketones 2+ (NEGATIVE) Urine Blood Negative (NEGATIVE) Urine Nitrite Negative (NEGATIVE) Urine Bilirubin Negative (NEGATIVE) Urine Urobilinogen 1 MG/DL (0.0-1.0) Urine Leukocyte Esterase 1+ (NEGATIVE) Urine RBC 0 /HPF (0 - 2) Urine WBC 0-2 /HPF (0 - 2) Urine Squamous Epithelial Cells Few /LPF (NONE/OCC) Urine Bacteria Occasional /HPF (NONE) Sodium Level 144 MMOL/L (136-145) Potassium Level 3.0 MMOL/L (3.5-5.1) Chloride Level 107 MMOL/L (98-107) Carbon Dioxide Level 26 MMOL/L (21-32) Anion Gap 12 mmol/L (5-15) Blood Urea Nitrogen 14 mg/dL (7-18) Creatinine 0.7 MG/DL (0.55-1.30) Estimat Glomerular Filtration Rate > 60 mL/min (>60) Glucose Level 100 MG/DL (74-106) Calcium Level 8.1 MG/DL (8.5-10.1) Total Bilirubin 0.7 MG/DL (0.2-1.0) Aspartate Amino Transf (AST/SGOT) 42 U/L (15-37) Alanine Aminotransferase (ALT/SGPT) 29 U/L (12-78) Alkaline Phosphatase 79 U/L (46-116) Troponin I 0.003 ng/mL (0.000-0.056) C-Reactive Protein, Quantitative 2.2 mg/dL (0.00-0.90) Pro-B-Type Natriuretic Peptide 1404 pg/mL (0-125) Total Protein 6.6 G/DL (6.4-8.2) Albumin 3.3 G/DL (3.4-5.0) Globulin 3.3 g/dL Albumin/Globulin Ratio 1.0 (1.0-2.7) Thyroid Stimulating Hormone (TSH) 0.065 uiU/mL (0.358-3.740) Erythrocyte Sedimentation Rate 30 MM/HR (0-30) EKG Diagnostic Results Rate: normal Rhythm: NSR ST Segments: no acute changes Last Vital Signs Date Time Temp Pulse Resp B/P (MAP) Pulse Ox O2 Delivery O2 Flow Rate FiO2 09/08/19 11:52 99.0 81 14 133/74 98 Room Air 21 Status: improved Disposition: ADMITTED INPATIENT Condition: Stable Referrals: NOT CHOSEN IPA/,REFERRING (PCP) Karthikeyan Mueller MD Sep 08, 2019 13:54
[2019-09-08] MEDS: Solu-MEDROL 40mg Inj IVP SCH ×2 (14:40→21:38)
[2019-09-08] MEDS: Albuterol/Ipratropium 3ml neb HHN SCH ×3 (15:10→23:00)
[2019-09-08 16:21] VITALS: BP 148/71
[2019-09-08 20:00] VITALS: BP 148/77
[2019-09-08] MEDS: Heparin 5000 units/ml inj SUBQ SCH (21:03)
[2019-09-09] VITALS: BP 144/72
[2019-09-09] MEDS: Albuterol/Ipratropium 3ml neb HHN SCH ×7 (02:59→23:00)
[2019-09-09 04:00] VITALS: BP 142/78
[2019-09-09] MEDS: Acetaminophen 500mg (ES) tab ORAL PRN ×2 (04:25→13:02)
[2019-09-09] MEDS: Solu-MEDROL 40mg Inj IVP SCH ×2 (06:07→22:27)
--- NOTE | 2019-09-09 06:29 | Consultation ---
DATE OF CONSULTATION: 09/08/2019 CARDIOLOGY CONSULT CONSULTING PHYSICIAN: Karl Estes M.D. REQUESTING PHYSICIAN: Flakito Reyes M.D. REASON FOR CONSULTATION: Congestive heart failure. HISTORY OF PRESENT ILLNESS: This is a 68-year-old female with systemic lupus. She presented to the hospital complaining of increasing weakness. I have been asked to address her cardiovascular status. The patient has been feeling extremely fatigued and short of breath, unable to function at home. PAST MEDICAL HISTORY: COPD, hypertensive heart disease, history of congestive heart failure, systemic lupus, history of pyelonephritis, and chronic constipation, legally blind. ALLERGIES: Multiple and include tetracycline, penicillin, nonsteroidal anti-inflammatories, Haldol, azithromycin, erythromycin, and aspirin. SOCIAL HISTORY: Negative for alcohol, substance abuse, or smoking. REVIEW OF SYSTEMS: Hospitalized here in June. She had a prolonged course of treatment for exacerbation of her cardiopulmonary disease. Echocardiogram at that time revealed normal ejection fraction with mild pulmonary hypertension and degenerative valve disease. There is no history of an abnormal blood clotting. She does have a history of nonsustained atrial ectopy. Otherwise, all systems negative and unchanged from my evaluations in June 2019 at this facility. PHYSICAL EXAMINATION: VITAL SIGNS: Blood pressure 155/88, heart rate 89, respirations 18, temperature 99. GENERAL: Moderately obese. NECK: Cannot assess jugular venous pressure. LUNGS: Diminished breath sounds with few rales. Regular rhythm and rate. Normal S1 and S2 with a fourth heart sound and a 1/6 systolic murmur at the apex. ABDOMEN: Obese and soft. EXTREMITIES: With trace dependent edema. Contractures of hands. SKIN: alopecia and patches of vitiligo on face and scalp. LABORATORY DATA: White count 4.8 and hemoglobin 10.5. Urinalysis with few white cells. Sodium is 144, potassium 3.0, bicarb 26, BUN 14, and creatinine 0.7. Glucose 100. Troponin is negative. Pro-natriuretic peptide 1400. Chest x-ray with pulmonary venous congestion, congestive heart failure, right pleural effusion. TSH 0.065. IMPRESSION: 1. Acute on chronic diastolic congestive heart failure. 2. Pleural effusion. 3. Hypokalemia. 4. Systemic lupus, possible lupus flare. 5. History of chronic obstructive pulmonary disease. PLAN: 1. Cardiac monitoring. 2. Pain control. 3. Diuresis. 4. Potassium repletion. 5. Recheck potassium and magnesium. 6. Trend natriuretic peptide assay. 7. DVT prophylaxis. 8. Further metabolic workup to follow, may need steroid therapy. Karl Estes M.D. DR: INEZ JOB#: [id number] CC: MILADIS
[2019-09-09 07:55] LABS: ALANINE AMINOTRANSFERASE 34 U/L (12-78); ALBUMIN 3.2 G/DL (3.4-5.0); ALBUMIN/GLOBULIN RATIO 0.9 (1.0-2.7); ALKALINE PHOSPHATASE 81 U/L (46-116); ANION GAP 13 mmol/L (5-15); ASPARTATE AMINO TRANSFERASE 28 U/L (15-37); BILIRUBIN,TOTAL 0.6 MG/DL (0.2-1.0); BLOOD UREA NITROGEN 15 mg/dL (7-18); CALCIUM 9.3 MG/DL (8.5-10.1); CARBON DIOXIDE 23 MMOL/L (21-32); CHLORIDE 103 MMOL/L (98-107); CREATININE 0.8 MG/DL (0.55-1.30); POTASSIUM 3.6 MMOL/L (3.5-5.1); SODIUM 139 MMOL/L (136-145)
[2019-09-09 08:00] VITALS: BP 142/80
[2019-09-09] MEDS: Heparin 5000 units/ml inj SUBQ SCH ×2 (08:42→22:29)
[2019-09-09] MEDS ORDERED: DiphenhydrAMINE 50mg/ml Inj IVP PRN ×2 (09:30)
[2019-09-09] MEDS: HYDROmorphone 1mg/ml Carpuject IVP PRN ×4 (09:30→22:27)
--- NOTE | 2019-09-09 11:00 | History and Physical Report ---
DATE OF ADMISSION: 09/08/2019 CHIEF COMPLAINT: Total body pain. HISTORY OF PRESENT ILLNESS: The patient is a 68-year-old female. She is well known to me. She has a history of hypertensive heart disease, COPD, emphysema, and lupus. She presented with complaints of intractable total body pain. She has had similar symptoms in the past when her lupus exacerbated. She denies any fevers or chills. No cough. On evaluation in the emergency room, she was wheezing and short of breath. She was given a dose of intravenous steroids, is now admitted for possible COPD exacerbation and lupus flare. PAST MEDICAL HISTORY: As above. PAST SURGICAL HISTORY: Includes prior bowel surgery and gynecologic surgery. FAMILY HISTORY: Noncontributory. SOCIAL HISTORY: The patient is a prior smoker, but quit. No alcohol. No drugs. REVIEW OF SYSTEMS: GENERAL: No fevers or chills. HEENT: No headaches or visual changes. CARDIOPULMONARY: No chest pain. Positive shortness of breath and wheezing. GASTROINTESTINAL: No nausea or vomiting. GENITOURINARY: No urgency or frequency. MUSCULOSKELETAL: No joint pain or swelling. NEUROLOGIC: No history of seizures. PHYSICAL EXAMINATION: VITAL SIGNS: Temperature 98 degrees, pulse 101, respirations 18, and blood pressure 142/80. GENERAL: The patient is a well-developed female. She has some hypopigmentation on the head and the facial area. HEENT: Head is normocephalic and atraumatic. NECK: Supple. HEART: Regular rate and rhythm. LUNGS: Clear anteriorly. ABDOMEN: Soft, nontender, and nondistended. EXTREMITIES: Without clubbing, cyanosis, or edema. LABORATORY DATA: Chest x-ray showed vascular congestion. Otherwise, sodium was 144, potassium 3, BUN 14, creatinine 0.7. Natriuretic peptide level was 1400. ASSESSMENT: This is a 68-year-old female with history of lupus, hypertension, and COPD, admitted with complaints of shortness of breath secondary to COPD exacerbation, CHF exacerbation, also may have lupus flare. PLAN: 1. IV Lasix. 2. Intravenous steroids. 3. Breathing treatments. 4. IV pain medications as needed. 5. Cardiology and Pulmonary evaluations will be obtained. Flakito Reyes M.D. DR: REYES JOB#: [id number] CC:
[2019-09-09 11:37] VITALS: BP 138/69
[2019-09-09 16:00] VITALS: BP 129/77
[2019-09-09 20:00] VITALS: BP 138/68
[2019-09-10] VITALS: BP 121/69
[2019-09-10] MEDS: Albuterol/Ipratropium 3ml neb HHN SCH ×7 (03:00→23:00)
[2019-09-10] MEDS: HYDROmorphone 1mg/ml Carpuject IVP PRN ×6 (03:10→23:49)
[2019-09-10 04:00] VITALS: BP 124/66
--- NOTE | 2019-09-10 05:15 | Progress Note ---
DATE: 09/09/2019 CARDIOLOGY PROGRESS NOTE SUBJECTIVE: The patient continues to have abdominal pain, weakness, and discomfort. She is cramping all over. She is unable to see well (legally blind) and has not been able to eat her food alone. OBJECTIVE: VITAL SIGNS: Blood pressure 138/68, pulse 80, respirations 17, and temperature 99. HEENT: Alopecia and vitiligo on . LUNGS: Clear with few rales. CARDIAC: Regular rhythm and rate. Normal S1, S2 with a 1/6 systolic apical murmur. Monitored rhythm sinus with atrial ectopy. ABDOMEN: Soft. Mild diffuse tenderness. No guarding. EXTREMITIES: No edema. LABORATORY DATA: Sodium 139, potassium 3.6, magnesium 2, bicarb 23, BUN 15, creatinine 0.8, and albumin 3.2. IMPRESSION: 1. Acute on chronic diastolic congestive heart failure. 2. Systemic lupus with possible flare. 3. COPD with bronchospasm paroxysmally. 4. Acute on chronic pain. PLAN: 1. Diuresis. 2. Steroids and bronchodilators. 3. Pain control. 4. DVT prophylaxis. 5. Trend natriuretic peptide assay. 6. The patient is high risk with condition serious and prognosis guarded. Karl Estes M.D. DR: CHARISSE JOB#: [id number] CC:
[2019-09-10 08:00] VITALS: BP 145/81
[2019-09-10] MEDS: Solu-MEDROL 40mg Inj IVP SCH ×2 (08:53→23:09)
[2019-09-10] MEDS: Heparin 5000 units/ml inj SUBQ SCH ×2 (08:54→23:08)
[2019-09-10 09:21] LABS: BASOPHILS % (AUTO) 0.7 % (0.0-2.0); EOSINOPHILS % (AUTO) 0.4 % (0.0-3.0); HEMATOCRIT 36.7 % (37.0-47.0); LYMPHOCYTES % (AUTO) 23.1 % (20.0-45.0); MEAN CORPUSCULAR VOLUME 84 FL (80-99); NEUTROPHILS % (AUTO) 65.8 % (45.0-75.0); PLATELET COUNT 269 K/UL (150-450); RED BLOOD COUNT 4.35 M/UL (4.20-5.40); RED CELL DISTRIBUTION WIDTH 18.7 % (11.6-14.8); WHITE BLOOD COUNT 7.3 K/UL (4.8-10.8)
[2019-09-10 09:59] LABS: ALANINE AMINOTRANSFERASE 29 U/L (12-78); ALBUMIN 3.2 G/DL (3.4-5.0); ALKALINE PHOSPHATASE 78 U/L (46-116); ANION GAP 11 mmol/L (5-15); ASPARTATE AMINO TRANSFERASE 24 U/L (15-37); BILIRUBIN,TOTAL 0.5 MG/DL (0.2-1.0); BLOOD UREA NITROGEN 20 mg/dL (7-18); CALCIUM 8.4 MG/DL (8.5-10.1); CARBON DIOXIDE 27 MMOL/L (21-32); CHLORIDE 105 MMOL/L (98-107); CREATININE 0.7 MG/DL (0.55-1.30); POTASSIUM 4.1 MMOL/L (3.5-5.1); SODIUM 143 MMOL/L (136-145)
[2019-09-10 12:00] VITALS: BP 140/81
[2019-09-10 16:00] VITALS: BP 138/76
--- NOTE | 2019-09-10 16:59 | General Progress Note ---
Assessment/Plan Problem List: (1) SLE exacerbation ICD Codes: M32.9 - Systemic lupus erythematosus, unspecified SNOMED: 38130451, 868385175 (2) CHF (congestive heart failure) ICD Codes: I50.9 - Heart failure, unspecified SNOMED: 18012254 (3) COPD (chronic obstructive pulmonary disease) ICD Codes: J44.9 - Chronic obstructive pulmonary disease, unspecified SNOMED: 99587128 (4) Lupus ICD Codes: M32.9 - Systemic lupus erythematosus, unspecified SNOMED: 07358217 (5) Total body pain ICD Codes: R52 - Pain, unspecified SNOMED: 578334239 (6) COVID-19 ruled out ICD Codes: Z03.818 - Encounter for observation for suspected exposure to other biological agents ruled out SNOMED: 873268232, 983133884 Status: stable Assessment/Plan: Continue IV steroids. COVID test pending If negative can start hand-held nebulizer treatments Antibiotics for bronchitis Antiplatelet treatment DVT prophylaxis Pain medications as needed Subjective ROS Limited/Unobtainable: No Constitutional: Reports: malaise, weakness HEENT: Reports: no symptoms Cardiovascular: Reports: chest pain Respiratory: Reports: cough, shortness of breath, wheezing Gastrointestinal/Abdominal: Reports: no symptoms Genitourinary: Reports: no symptoms Neurologic/Psychiatric: Reports: anxiety Endocrine: Reports: no symptoms Hematologic/Lymphatic: Reports: no symptoms Allergies: Coded Allergies: KETOROLAC TROMETHAMINE (Verified Allergy, Severe, Anaphylaxis, 10/22/18) PENICILLINS (Verified Allergy, Severe, Anaphylaxis, 10/22/18) TETRACYCLINE (Verified Allergy, Severe, Anaphylaxis, 10/22/18) HALOPERIDOL LACTATE (Verified Allergy, Intermediate, Anaphylaxis, 10/22/18) ERYTHROMYCIN BASE (Verified Allergy, Mild, 10/22/18) AMPICILLIN (Verified Allergy, Unknown, 10/22/18) ASPIRIN (Verified Allergy, Unknown, 10/22/18) AZITHROMYCIN (Unverified Allergy, Unknown, 04/17/19) IBUPROFEN (Verified Allergy, Unknown, 10/22/18) NAPROXEN (Verified Allergy, Unknown, 10/22/18) Uncoded Allergies: PENICILLIN (Allergy, Unknown, 09/08/19) All Systems: reviewed and negative except above Subjective patient continues to complain of shortness of breath. Noted on exam to have significant wheezing. Unable to get hand-held nebulizer treatments because patient has not had a call for test yet. No fevers or chills. Positive chest tightness. Objective Last 24 Hour Vital Signs Date Time Temp Pulse Resp B/P (MAP) Pulse Ox O2 Delivery O2 Flow Rate FiO2 09/10/19 15:59 94 24 97 Room Air 21 87 22 94 09/10/19 12:00 99.7 97 18 140/81 (100) 95 09/10/19 12:00 99 09/10/19 11:08 99 20 96 Room Air 21 89 24 93 09/10/19 09:07 83 22 97 Room Air 21 95 26 92 09/10/19 09:00 Room Air 09/10/19 08:00 86 09/10/19 08:00 97.9 109 18 145/81 (102) 96 09/10/19 07:49 98.1 09/10/19 06:14 98.1 09/10/19 04:00 98.1 86 20 124/66 (85) 96 09/10/19 04:00 80 09/10/19 00:00 98.4 93 20 121/69 (86) 95 09/10/19 00:00 76 09/09/19 21:00 Room Air 09/09/19 20:00 87 09/09/19 20:00 99.0 80 17 138/68 (91) 98 Intake and Output 09/09/19 09/10/19 19:00 07:00 Intake Total 1050 ml 400 ml Balance 1050 ml 400 ml Intake Oral 1050 ml 400 ml # Voids 5 1 Laboratory Tests 09/10/19 09:10: White Blood Count 7.3, Red Blood Count 4.35, Hemoglobin 11.0L, Hematocrit 36.7L , Mean Corpuscular Volume 84, Mean Corpuscular Hemoglobin 25.3L, Mean Corpuscular Hemoglobin Concent 30.0L, Red Cell Distribution Width 18.7H, Platelet Count 269, Mean Platelet Volume 5.8L, Neutrophils (%) (Auto) 65.8, Lymphocytes (%) (Auto) 23.1, Monocytes (%) (Auto) 10.0, Eosinophils (%) (Auto) 0.4, Basophils (%) (Auto) 0.7, Sodium Level 143, Potassium Level 4.1, Chloride Level 105, Carbon Dioxide Level 27, Anion Gap 11, Blood Urea Nitrogen 20H, Creatinine 0.7, Estimat Glomerular Filtration Rate > 60, Glucose Level 89, Uric Acid 3.4, Calcium Level 8.4L, Magnesium Level 1.9, Total Bilirubin 0.5, Aspartate Amino Transf (AST/SGOT) 24, Alanine Aminotransferase (ALT/SGPT) 29, Alkaline Phosphatase 78, Pro-B-Type Natriuretic Peptide 327H, Total Protein 6.5 , Albumin 3.2L, Globulin 3.3, Albumin/Globulin Ratio 1.0 Height (Feet): 5 Height (Inches): 7.00 Weight (Pounds): 120 General Appearance: WD/WN, alert EENT: normal ENT inspection Neck: non-tender, normal alignment, supple Cardiovascular: normal peripheral pulses, normal rate Respiratory/Chest: expiratory wheezing Abdomen: normal bowel sounds, non tender, soft, no organomegaly Edema: no edema noted Arm (L), no edema noted Arm (R), no edema noted Leg (L), no edema noted Leg (R), no edema noted Pedal (L), no edema noted Pedal (R), no edema noted Generalized Neurologic: remnants cutter II-XII grossly normal, alert, oriented x 3, responsive Lymphatic: normal anterior cervical (L), normal anterior cervical (R) Flakito Reyes MD Sep 10, 2019 16:59
[2019-09-10 20:00] VITALS: BP 112/76
--- NOTE | 2019-09-10 21:21 | Consultation ---
Consult Note Consult Note 68-year-old female with history of hypertensive heart disease, COPD, emphysema, and lupus. Patient with possible lupus exacerbation and diffuse pain. She denies any fevers or chills. No cough. Patient admitted with acute bronchospasm and short of breath. Patient admitted for COPD exacerbation and lupus flare. Patient started on IV solumedrol and respiratory care PAST MEDICAL HISTORY: COPD hypertensive heart disease, SLE PAST SURGICAL HISTORY: prior bowel surgery and gynecologic surgery. FAMILY HISTORY: Noncontributory. SOCIAL HISTORY: past smoker, but quit. No alcohol. No drugs. REVIEW OF SYSTEMS: reviewed PHYSICAL EXAMINATION: GENERAL: The patient is a well-developed female. NAD HEENT: Head is normocephalic and atraumatic. NECK: Supple. HEART: Regular rate and rhythm. without MRG LUNGS: moderate breath sounds with occ wheeze ABDOMEN: Soft, nontender, and nondistended. EXTREMITIES: Without clubbing, cyanosis, or edema. nonfocal reviewed and edited LABORATORY DATA: Labs Test 09/08/19 09:40 09/08/19 10:17 09/09/19 06:19 09/10/19 09:10 White Blood Count 4.8 K/UL (4.8-10.8) 7.3 K/UL (4.8-10.8) Red Blood Count 4.01 M/UL (4.20-5.40) 4.35 M/UL (4.20-5.40) Hemoglobin 10.5 G/DL (12.0-16.0) 11.0 G/DL (12.0-16.0) Hematocrit 33.9 % (37.0-47.0) 36.7 % (37.0-47.0) Mean Corpuscular Volume 84 FL (80-99) 84 FL (80-99) Mean Corpuscular Hemoglobin 26.2 PG (27.0-31.0) 25.3 PG (27.0-31.0) Mean Corpuscular Hemoglobin Concent 31.0 G/DL (32.0-36.0) 30.0 G/DL (32.0-36.0) Red Cell Distribution Width 18.5 % (11.6-14.8) 18.7 % (11.6-14.8) Platelet Count 242 K/UL (150-450) 269 K/UL (150-450) Mean Platelet Volume 6.2 FL (6.5-10.1) 5.8 FL (6.5-10.1) Neutrophils (%) (Auto) 59.6 % (45.0-75.0) 65.8 % (45.0-75.0) Lymphocytes (%) (Auto) 25.3 % (20.0-45.0) 23.1 % (20.0-45.0) Monocytes (%) (Auto) 12.5 % (1.0-10.0) 10.0 % (1.0-10.0) Eosinophils (%) (Auto) 1.4 % (0.0-3.0) 0.4 % (0.0-3.0) Basophils (%) (Auto) 1.3 % (0.0-2.0) 0.7 % (0.0-2.0) Urine Color Pale yellow Urine Appearance Clear Urine pH 7 (4.5-8.0) Urine Specific Seale 1.010 (1.005-1.035) Urine Protein Negative (NEGATIVE) Urine Glucose (UA) Negative (NEGATIVE) Urine Ketones 2+ (NEGATIVE) Urine Blood Negative (NEGATIVE) Urine Nitrite Negative (NEGATIVE) Urine Bilirubin Negative (NEGATIVE) Urine Urobilinogen 1 MG/DL (0.0-1.0) Urine Leukocyte Esterase 1+ (NEGATIVE) Urine RBC 0 /HPF (0 - 2) Urine WBC 0-2 /HPF (0 - 2) Urine Squamous Epithelial Cells Few /LPF (NONE/OCC) Urine Bacteria Occasional /HPF (NONE) Sodium Level 144 MMOL/L (136-145) 139 MMOL/L (136-145) 143 MMOL/L (136-145) Potassium Level 3.0 MMOL/L (3.5-5.1) 3.6 MMOL/L (3.5-5.1) 4.1 MMOL/L (3.5-5.1) Chloride Level 107 MMOL/L (98-107) 103 MMOL/L (98-107) 105 MMOL/L (98-107) Carbon Dioxide Level 26 MMOL/L (21-32) 23 MMOL/L (21-32) 27 MMOL/L (21-32) Anion Gap 12 mmol/L (5-15) 13 mmol/L (5-15) 11 mmol/L (5-15) Blood Urea Nitrogen 14 mg/dL (7-18) 15 mg/dL (7-18) 20 mg/dL (7-18) Creatinine 0.7 MG/DL (0.55-1.30) 0.8 MG/DL (0.55-1.30) 0.7 MG/DL (0.55-1.30) Estimat Glomerular Filtration Rate > 60 mL/min (>60) > 60 mL/min (>60) > 60 mL/min (>60) Glucose Level 100 MG/DL (74-106) 108 MG/DL (74-106) 89 MG/DL (74-106) Calcium Level 8.1 MG/DL (8.5-10.1) 9.3 MG/DL (8.5-10.1) 8.4 MG/DL (8.5-10.1) Total Bilirubin 0.7 MG/DL (0.2-1.0) 0.6 MG/DL (0.2-1.0) 0.5 MG/DL (0.2-1.0) Aspartate Amino Transf (AST/SGOT) 42 U/L (15-37) 28 U/L (15-37) 24 U/L (15-37) Alanine Aminotransferase (ALT/SGPT) 29 U/L (12-78) 34 U/L (12-78) 29 U/L (12-78) Alkaline Phosphatase 79 U/L (46-116) 81 U/L (46-116) 78 U/L (46-116) Troponin I 0.003 ng/mL (0.000-0.056) C-Reactive Protein, Quantitative 2.2 mg/dL (0.00-0.90) Pro-B-Type Natriuretic Peptide 1404 pg/mL (0-125) 327 pg/mL (0-125) Total Protein 6.6 G/DL (6.4-8.2) 6.9 G/DL (6.4-8.2) 6.5 G/DL (6.4-8.2) Albumin 3.3 G/DL (3.4-5.0) 3.2 G/DL (3.4-5.0) 3.2 G/DL (3.4-5.0) Globulin 3.3 g/dL 3.7 g/dL 3.3 g/dL Albumin/Globulin Ratio 1.0 (1.0-2.7) 0.9 (1.0-2.7) 1.0 (1.0-2.7) Thyroid Stimulating Hormone (TSH) 0.065 uiU/mL (0.358-3.740) Erythrocyte Sedimentation Rate 30 MM/HR (0-30) Magnesium Level 2.0 MG/DL (1.8-2.4) 1.9 MG/DL (1.8-2.4) Uric Acid 3.4 MG/DL (2.6-7.2) ASSESSMENT: This is a 68-year-old female with history of lupus, hypertension, respiratory distress secondary to COPD exacerbation, CHF PLAN respiratory care neb therapy IV solumedrol oxygen therapy DVT prophylaxis monitor as is monitor for improvement and dc planning impression, plan, and exam edited and reviewed in detail care discussed with Aquilino Guzman MD Sep 10, 2019 21:21
--- NOTE | 2019-09-10 23:29 | Progress Note ---
DATE: 09/10/2019 CARDIOLOGY PROGRESS NOTE SUBJECTIVE: Patient continues to have shortness of breath. Pain in her hands and extremities. PHYSICAL EXAMINATION: VITAL SIGNS: Blood pressure 140/81, heart rate 97, respirations 18. Monitor sinus tachycardia with arrhythmia. LUNGS: Bilateral breath sounds. Expiratory wheezes. CARDIAC: Regular rhythm. Rapid rate. Normal S1, S2. ABDOMEN: Soft. EXTREMITIES: Trace edema. Contractures noted. LABORATORY DATA: White count 7.3, hemoglobin 11. Pro natriuretic peptide decreased to 327. BUN 20, creatinine 0.7. IMPRESSION: 1. Acute bronchospasm. 2. COPD exacerbation. 3. Acute on chronic diastolic congestive heart failure, now significantly improved. 4. Prerenal azotemia secondary to diuresis. 5. Systemic lupus. PLAN: 1. IV steroids. 2. Titrate diuretic. 3. Pain control. 4. DVT prophylaxis. 5. No aspirin due to allergy. Karl Estes M.D. DR: JAMAL JOB#: [id number] CC:
[2019-09-11] VITALS: BP 136/75
[2019-09-11] MEDS: Albuterol/Ipratropium 3ml neb HHN SCH ×6 (03:00→23:02)
[2019-09-11] MEDS: HYDROmorphone 1mg/ml Carpuject IVP PRN ×5 (03:53→20:38)
[2019-09-11 04:00] VITALS: BP 135/74
[2019-09-11 08:00] VITALS: BP 129/73
[2019-09-11] MEDS ORDERED: DiphenhydrAMINE 50mg/ml Inj IVP PRN ×2 (08:06→08:08)
[2019-09-11] MEDS ORDERED: Acetaminophen 500mg (ES) tab ORAL PRN (08:06)
[2019-09-11] MEDS: Solu-MEDROL 40mg Inj IVP SCH ×2 (08:44→20:36)
[2019-09-11] MEDS: Heparin 5000 units/ml inj SUBQ SCH ×2 (08:45→20:37)
[2019-09-11 12:00] VITALS: BP 133/78
--- NOTE | 2019-09-11 14:06 | CDS Physician Query ---
Clarification is required for compliance, coding accuracy, and to reflect severity of illness for this patient Dear Dr. Flakito Reyes Date: 09/11/2019 Renewals Manager/CDS Name: Nona Castillo Clinical Documentation states: 68-year-old female with history of lupus, hypertension, and COPD, admitted with complaints of shortness of breath secondary to COPD exacerbation, CHF exacerbation, also may have lupus flare. RD note: NUTRITION DIAGNOSIS: Altered nutrition related lab values r/t elev BUN (20), elev BNP(1404, trend down), febrile (99.7, 100.0). BMI 19.3, Albumin 3.2 Please select the most appropriate option: [x] Protein/Calorie Malnutrition [x] Mild [] Moderate [] Severe [] Hypoalbuminemia [] Cachexia [] Underweight [] Intestinal malabsorption [] Other [] Unable to determine [] Not Applicable Present on Admission: [x] Yes [] No [] Clinically Undetermined Physician signature Date Please also document in your Progress Notes and/or Discharge Summary and indicate if the condition was present on admission. MTDD
[2019-09-11 16:00] VITALS: BP 148/67
[2019-09-11] MEDS ORDERED: Promethazine/Codeine 5ml UD ORAL PRN (16:15)
--- NOTE | 2019-09-11 16:17 | General Progress Note ---
Assessment/Plan Problem List: (1) SLE exacerbation ICD Codes: M32.9 - Systemic lupus erythematosus, unspecified SNOMED: 61533639, 912232678 (2) CHF (congestive heart failure) ICD Codes: I50.9 - Heart failure, unspecified SNOMED: 50380199 (3) COPD (chronic obstructive pulmonary disease) ICD Codes: J44.9 - Chronic obstructive pulmonary disease, unspecified SNOMED: 21916593 (4) Lupus ICD Codes: M32.9 - Systemic lupus erythematosus, unspecified SNOMED: 75580234 (5) Total body pain ICD Codes: R52 - Pain, unspecified SNOMED: 867761076 (6) COVID-19 ruled out ICD Codes: Z03.818 - Encounter for observation for suspected exposure to other biological agents ruled out SNOMED: 189928704, 928991509 Status: stable Assessment/Plan: Continue IV steroids- Start weaning tomorrow COVID test neg HHN Antibiotics for bronchitis Antiplatelet treatment iv lasix repeat cxr DVT prophylaxis Pain medications as needed cough rx Subjective ROS Limited/Unobtainable: No Constitutional: Reports: malaise, weakness HEENT: Reports: no symptoms Cardiovascular: Reports: no symptoms Respiratory: Reports: shortness of breath, wheezing Gastrointestinal/Abdominal: Reports: no symptoms Genitourinary: Reports: no symptoms Neurologic/Psychiatric: Reports: no symptoms Endocrine: Reports: no symptoms Hematologic/Lymphatic: Reports: no symptoms Allergies: Coded Allergies: KETOROLAC TROMETHAMINE (Verified Allergy, Severe, Anaphylaxis, 10/22/18) PENICILLINS (Verified Allergy, Severe, Anaphylaxis, 10/22/18) TETRACYCLINE (Verified Allergy, Severe, Anaphylaxis, 10/22/18) HALOPERIDOL LACTATE (Verified Allergy, Intermediate, Anaphylaxis, 10/22/18) ERYTHROMYCIN BASE (Verified Allergy, Mild, 10/22/18) AMPICILLIN (Verified Allergy, Unknown, 10/22/18) ASPIRIN (Verified Allergy, Unknown, 10/22/18) AZITHROMYCIN (Unverified Allergy, Unknown, 04/17/19) IBUPROFEN (Verified Allergy, Unknown, 10/22/18) NAPROXEN (Verified Allergy, Unknown, 10/22/18) Uncoded Allergies: PENICILLIN (Allergy, Unknown, 09/08/19) All Systems: reviewed and negative except above Subjective Patient notes improvement in her shortness of breath. Still with expiratory wheezing but improved compared to yesterday. Continues to complain of chest pain. Positive cough with mild congestion. Denies any fevers or chills. On IV steroids as well as IV diuretic treatment. Labs reviewed. Pain controlled. Requesting cough treatment. Pulm & cardiology input appreciated. Objective Last 24 Hour Vital Signs Date Time Temp Pulse Resp B/P (MAP) Pulse Ox O2 Delivery O2 Flow Rate FiO2 09/11/19 15:02 88 24 100 Room Air 21 87 20 98 09/11/19 12:00 98.6 90 19 133/78 (96) 98 09/11/19 11:12 91 24 100 Room Air 21 93 20 98 09/11/19 09:00 Room Air 09/11/19 08:00 97.9 98 22 129/73 (91) 100 09/11/19 07:10 88 24 99 Room Air 21 86 20 96 09/11/19 04:00 96.8 82 18 135/74 (94) 96 09/11/19 04:00 86 09/11/19 00:00 84 09/11/19 00:00 98.1 87 20 136/75 (95) 94 09/10/19 21:00 Room Air 09/10/19 20:14 90 24 99 Room Air 21 92 20 96 09/10/19 20:00 95 09/10/19 20:00 98.6 86 20 112/76 (88) 93 Intake and Output 09/10/19 09/11/19 19:00 07:00 Intake Total 1200 ml 600 ml Balance 1200 ml 600 ml Intake Oral 1200 ml 600 ml # Voids 3 3 Height (Feet): 5 Height (Inches): 7.00 Weight (Pounds): 123 Objective General Appearance: WD/WN, alert EENT: normal ENT inspection Neck: non-tender, normal alignment, supple Cardiovascular: normal peripheral pulses, normal rate Respiratory/Chest: expiratory wheezing Abdomen: normal bowel sounds, non tender, soft, no organomegaly Edema: no edema noted Arm (L), no edema noted Arm (R), no edema noted Leg (L), no edema noted Leg (R), no edema noted Pedal (L), no edema noted Pedal (R), no edema noted 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 MD Sep 11, 2019 16:17
[2019-09-11 20:00] VITALS: BP 126/81
--- NOTE | 2019-09-11 23:14 | Progress Note ---
DATE: 09/11/2019 CARDIOLOGY PROGRESS NOTE SUBJECTIVE: The patient continues to have congestion, cough, and shortness of breath. She still wheezing although feel somewhat improved. She has been on inhaled bronchodilators, intravenous steroids, and intravenous diuretics. PHYSICAL EXAMINATION: VITAL SIGNS: Blood pressure 133/78, pulse 90, respiratory rate 19, afebrile, room air oxygen saturation 98 to 100%. LUNGS: Coarse breath sounds, rhonchi, expiratory wheezes. No accessory muscle use. HEART: Regular rhythm rate. Normal S1, S2 with a fourth heart sound. No rub. ABDOMEN: Soft. EXTREMITIES: No edema. LABORATORY AND DIAGNOSTIC DATA: No new labs today. IMPRESSION: 1. Acute bronchospasm. 2. COPD. 3. Paroxysmal atrial ectopy. 4. Acute on chronic diastolic congestive heart failure. 5. Systemic lupus. PLAN: 1. Inhaled bronchodilators. 2. Diuresis. 3. Empiric antimicrobials. 4. Steroid taper. 5. Titrate antihypertensive and anti-failure regimen. 6. DVT prophylaxis. 7. Recheck chest radiograph. 8. Trend natriuretic peptide assay. Karl Estes M.D. DR: Romel JOB#: [id number] CC:
[2019-09-12 00:16] VITALS: BP 133/78
[2019-09-12] MEDS: HYDROmorphone 1mg/ml Carpuject IVP PRN ×6 (00:37→20:41)
[2019-09-12] MEDS: Albuterol/Ipratropium 3ml neb HHN SCH ×6 (03:43→23:44)
[2019-09-12 04:00] VITALS: BP 123/81
[2019-09-12 08:00] VITALS: BP 141/84
[2019-09-12 08:12] LABS: BASOPHILS % (AUTO) 0.4 % (0.0-2.0); EOSINOPHILS % (AUTO) 0.1 % (0.0-3.0); HEMATOCRIT 37.6 % (37.0-47.0); HEMOGLOBIN 11.2 G/DL (12.0-16.0); LYMPHOCYTES % (AUTO) 20.3 % (20.0-45.0); MEAN CORPUSCULAR VOLUME 85 FL (80-99); MONOCYTES % (AUTO) 10.4 % (1.0-10.0); NEUTROPHILS % (AUTO) 68.9 % (45.0-75.0); PLATELET COUNT 264 K/UL (150-450); WHITE BLOOD COUNT 6.4 K/UL (4.8-10.8)
[2019-09-12] MEDS: Solu-MEDROL 40mg Inj IVP SCH ×3 (08:47→21:51)
[2019-09-12] MEDS: Heparin 5000 units/ml inj SUBQ SCH ×2 (08:47→20:38)
[2019-09-12 09:03] LABS: ALANINE AMINOTRANSFERASE 30 U/L (12-78); ALBUMIN 3.3 G/DL (3.4-5.0); ALKALINE PHOSPHATASE 84 U/L (46-116); ANION GAP 7 mmol/L (5-15); ASPARTATE AMINO TRANSFERASE 18 U/L (15-37); BILIRUBIN,TOTAL 0.3 MG/DL (0.2-1.0); BLOOD UREA NITROGEN 16 mg/dL (7-18); CALCIUM 8.9 MG/DL (8.5-10.1); CARBON DIOXIDE 30 MMOL/L (21-32); CHLORIDE 105 MMOL/L (98-107); CREATININE 0.8 MG/DL (0.55-1.30); POTASSIUM 4.5 MMOL/L (3.5-5.1); SODIUM 142 MMOL/L (136-145)
--- NOTE | 2019-09-12 11:03 | Diagnostic Imaging Report ---
Indication: Cough Technique: One view of the chest Comparison: 09/08/2019 Findings: There is a bulla again demonstrated in the right upper lobe. Lungs and pleural spaces are clear. The heart size is normal. The aorta is tortuous and calcified. No significant change Impression: No acute process
[2019-09-12 12:00] VITALS: BP 140/97
[2019-09-12 16:00] VITALS: BP 126/86
--- NOTE | 2019-09-12 16:36 | General Progress Note ---
Assessment/Plan Problem List: (1) SLE exacerbation ICD Codes: M32.9 - Systemic lupus erythematosus, unspecified SNOMED: 10749684, 502435791 (2) CHF (congestive heart failure) ICD Codes: I50.9 - Heart failure, unspecified SNOMED: 26560561 (3) COPD (chronic obstructive pulmonary disease) ICD Codes: J44.9 - Chronic obstructive pulmonary disease, unspecified SNOMED: 63460962 (4) Lupus ICD Codes: M32.9 - Systemic lupus erythematosus, unspecified SNOMED: 33790812 (5) Total body pain ICD Codes: R52 - Pain, unspecified SNOMED: 594792138 (6) COVID-19 ruled out ICD Codes: Z03.818 - Encounter for observation for suspected exposure to other biological agents ruled out SNOMED: 262031442, 560347473 Status: stable Assessment/Plan: Continue IV steroids ?wean tomorrow COVID test neg HHN Antibiotics for bronchitis Antiplatelet treatment iv lasix DVT prophylaxis Pain medications as needed cough rx Subjective Allergies: Coded Allergies: KETOROLAC TROMETHAMINE (Verified Allergy, Severe, Anaphylaxis, 10/22/18) PENICILLINS (Verified Allergy, Severe, Anaphylaxis, 10/22/18) TETRACYCLINE (Verified Allergy, Severe, Anaphylaxis, 10/22/18) HALOPERIDOL LACTATE (Verified Allergy, Intermediate, Anaphylaxis, 10/22/18) ERYTHROMYCIN BASE (Verified Allergy, Mild, 10/22/18) AMPICILLIN (Verified Allergy, Unknown, 10/22/18) ASPIRIN (Verified Allergy, Unknown, 10/22/18) AZITHROMYCIN (Unverified Allergy, Unknown, 04/17/19) IBUPROFEN (Verified Allergy, Unknown, 10/22/18) NAPROXEN (Verified Allergy, Unknown, 10/22/18) Uncoded Allergies: PENICILLIN (Allergy, Unknown, 09/08/19) Subjective Still with expiratory wheezing but improved compared to yesterday. cxr unchanged. getting resp rx and iv steroids. Continues to complain of chest pain. Positive cough with mild congestion. Denies any fevers or chills. On IV steroids as well as IV diuretic treatment. Labs reviewed. Pain controlled. Objective Last 24 Hour Vital Signs Date Time Temp Pulse Resp B/P (MAP) Pulse Ox O2 Delivery O2 Flow Rate FiO2 09/12/19 15:22 90 18 99 Nasal Cannula 2.0 28 90 18 94 09/12/19 12:00 97.2 102 16 140/97 (111) 97 09/12/19 11:06 94 18 100 Nasal Cannula 2.0 28 88 18 96 09/12/19 09:00 Nasal Cannula 2.0 09/12/19 08:00 97.9 89 16 141/84 (103) 97 09/12/19 07:20 90 18 98 Nasal Cannula 2.0 28 92 18 95 09/12/19 04:00 98.0 86 18 123/81 (95) 98 09/12/19 03:44 93 20 98 Nasal Cannula 2.0 28 91 18 92 09/12/19 00:16 97.3 63 21 133/78 (96) 94 09/11/19 23:02 100 20 100 Nasal Cannula 2.0 28 97 20 95 09/11/19 21:08 97.7 09/11/19 21:01 Nasal Cannula 2.0 09/11/19 20:00 97.7 108 22 126/81 (96) 97 09/11/19 19:33 103 22 100 Room Air 21 100 20 94 Intake and Output 09/11/19 09/12/19 19:00 07:00 Intake Total 480 ml Balance 480 ml Intake Oral 480 ml # Voids 3 2 Laboratory Tests 09/12/19 07:45: White Blood Count 6.4, Red Blood Count 4.40, Hemoglobin 11.2L, Hematocrit 37.6, Mean Corpuscular Volume 85, Mean Corpuscular Hemoglobin 25.4L, Mean Corpuscular Hemoglobin Concent 29.8L, Red Cell Distribution Width 19.0H, Platelet Count 264 , Mean Platelet Volume 6.9, Neutrophils (%) (Auto) 68.9, Lymphocytes (%) (Auto) 20.3, Monocytes (%) (Auto) 10.4H, Eosinophils (%) (Auto) 0.1, Basophils (%) ( Auto) 0.4, Sodium Level 142, Potassium Level 4.5, Chloride Level 105, Carbon Dioxide Level 30, Anion Gap 7, Blood Urea Nitrogen 16, Creatinine 0.8, Estimat Glomerular Filtration Rate > 60, Glucose Level 101, Calcium Level 8.9, Magnesium Level 2.1, Total Bilirubin 0.3, Aspartate Amino Transf (AST/SGOT) 18, Alanine Aminotransferase (ALT/SGPT) 30, Alkaline Phosphatase 84, Pro-B-Type Natriuretic Peptide 142H, Total Protein 6.7, Albumin 3.3L, Globulin 3.4, Albumin /Globulin Ratio 1.0 Height (Feet): 5 Height (Inches): 7.00 Weight (Pounds): 123 Objective General Appearance: WD/WN, alert EENT: normal ENT inspection Neck: non-tender, normal alignment, supple Cardiovascular: normal peripheral pulses, normal rate Respiratory/Chest: expiratory wheezing Abdomen: normal bowel sounds, non tender, soft, no organomegaly Edema: no edema noted Arm (L), no edema noted Arm (R), no edema noted Leg (L), no edema noted Leg (R), no edema noted Pedal (L), no edema noted Pedal (R), no edema noted 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
--- NOTE | 2019-09-12 17:03 | Pulmonology Progress Note ---
Subjective ROS Limited/Unobtainable: No Allergies: Coded Allergies: KETOROLAC TROMETHAMINE (Verified Allergy, Severe, Anaphylaxis, 10/22/18) PENICILLINS (Verified Allergy, Severe, Anaphylaxis, 10/22/18) TETRACYCLINE (Verified Allergy, Severe, Anaphylaxis, 10/22/18) HALOPERIDOL LACTATE (Verified Allergy, Intermediate, Anaphylaxis, 10/22/18) ERYTHROMYCIN BASE (Verified Allergy, Mild, 10/22/18) AMPICILLIN (Verified Allergy, Unknown, 10/22/18) ASPIRIN (Verified Allergy, Unknown, 10/22/18) AZITHROMYCIN (Unverified Allergy, Unknown, 04/17/19) IBUPROFEN (Verified Allergy, Unknown, 10/22/18) NAPROXEN (Verified Allergy, Unknown, 10/22/18) Uncoded Allergies: PENICILLIN (Allergy, Unknown, 09/08/19) All Systems: reviewed and negative except above Objective Last 24 Hour Vital Signs Date Time Temp Pulse Resp B/P (MAP) Pulse Ox O2 Delivery O2 Flow Rate FiO2 09/12/19 16:00 98.2 102 16 126/86 (99) 97 09/12/19 15:22 90 18 99 Nasal Cannula 2.0 28 90 18 94 09/12/19 12:00 97.2 102 16 140/97 (111) 97 09/12/19 11:06 94 18 100 Nasal Cannula 2.0 28 88 18 96 09/12/19 09:00 Nasal Cannula 2.0 09/12/19 08:00 97.9 89 16 141/84 (103) 97 09/12/19 07:20 90 18 98 Nasal Cannula 2.0 28 92 18 95 09/12/19 04:00 98.0 86 18 123/81 (95) 98 09/12/19 03:44 93 20 98 Nasal Cannula 2.0 28 91 18 92 09/12/19 00:16 97.3 63 21 133/78 (96) 94 09/11/19 23:02 100 20 100 Nasal Cannula 2.0 28 97 20 95 09/11/19 21:08 97.7 09/11/19 21:01 Nasal Cannula 2.0 09/11/19 20:00 97.7 108 22 126/81 (96) 97 09/11/19 19:33 103 22 100 Room Air 21 100 20 94 Intake and Output 09/11/19 09/12/19 19:00 07:00 Intake Total 480 ml Balance 480 ml Intake Oral 480 ml # Voids 3 2 Objective WDWN NAD clear breath sounds bilaterally without rhonchi or wheeze [id number] without MRG NABS nontender no HSM no CCE nonfocal confused Laboratory Tests 09/12/19 07:45: White Blood Count 6.4, Red Blood Count 4.40, Hemoglobin 11.2L, Hematocrit 37.6, Mean Corpuscular Volume 85, Mean Corpuscular Hemoglobin 25.4L, Mean Corpuscular Hemoglobin Concent 29.8L, Red Cell Distribution Width 19.0H, Platelet Count 264 , Mean Platelet Volume 6.9, Neutrophils (%) (Auto) 68.9, Lymphocytes (%) (Auto) 20.3, Monocytes (%) (Auto) 10.4H, Eosinophils (%) (Auto) 0.1, Basophils (%) ( Auto) 0.4, Sodium Level 142, Potassium Level 4.5, Chloride Level 105, Carbon Dioxide Level 30, Anion Gap 7, Blood Urea Nitrogen 16, Creatinine 0.8, Estimat Glomerular Filtration Rate > 60, Glucose Level 101, Calcium Level 8.9, Magnesium Level 2.1, Total Bilirubin 0.3, Aspartate Amino Transf (AST/SGOT) 18, Alanine Aminotransferase (ALT/SGPT) 30, Alkaline Phosphatase 84, Pro-B-Type Natriuretic Peptide 142H, Total Protein 6.7, Albumin 3.3L, Globulin 3.4, Albumin /Globulin Ratio 1.0 Current Medications Medications (Trade) Dose Ordered Sig/Dom Route PRN Reason Start Time Stop Time Status Last Admin Dose Admin Acetaminophen (Tylenol) 500 mg Q4H PRN ORAL Mild Pain (Pain Scale 1-3) 09/11/19 08:06 10/11/19 08:05 Albuterol/ Ipratropium (Albuterol/ Ipratropium) 3 ml Q4HRT HHN 09/11/19 11:00 09/13/19 14:59 09/12/19 15:12 Carisoprodol (Soma) 350 mg Q6HR ORAL 09/11/19 12:00 10/08/19 14:32 09/12/19 11:26 Diphenhydramine HCl (Benadryl) 25 mg Q6H PRN IVP Itching 09/11/19 08:06 10/11/19 08:05 Diphenhydramine HCl (Benadryl) 50 mg Q6H PRN IVP Itching 09/11/19 08:08 10/11/19 08:07 Furosemide (Lasix) 20 mg DAILY IV 09/11/19 09:00 10/09/19 08:59 09/12/19 08:47 Heparin Sodium (Porcine) (Heparin 5000 units/ml) 5,000 units EVERY 12 HOURS SUBQ 09/11/19 09:00 10/23/19 20:59 09/12/19 08:47 Hydromorphone HCl (Dilaudid) 1 mg Q4H PRN IVP For Pain 09/11/19 08:07 09/18/19 08:06 09/12/19 16:41 Levofloxacin (Levaquin) 250 mg DAILY ORAL 09/11/19 16:30 09/18/19 16:29 09/12/19 08:45 Methylprednisolone Sodium Succinate (Solu-MEDROL) 40 mg EVERY 12 HOURS IVP 09/11/19 09:00 12/08/19 20:59 09/12/19 08:47 Ondansetron HCl (Zofran) 4 mg Q6H PRN IVP Nausea & Vomiting 09/11/19 08:07 10/11/19 08:06 Pantoprazole (Protonix) 40 mg DAILY ORAL 09/11/19 09:00 10/09/19 08:59 09/12/19 08:45 Promethazine HCl/ Codeine (Phenergan with Codeine) 10 ml Q8H PRN ORAL For Cough 09/11/19 16:15 10/11/19 16:14 Assessment/Plan Assessment/Plan ASSESSMENT: This is a 68-year-old female with history of lupus, hypertension, respiratory distress secondary to COPD exacerbation, CHF PLAN respiratory care neb therapy as is IV solumedrol and taper oxygen therapy DVT prophylaxis monitor as is and taper meds monitor for improvement and dc planning impression, plan, and exam edited and reviewed in detail care discussed with Aquilino Guzman MD Sep 12, 2019 17:03
[2019-09-12 20:00] VITALS: BP 139/74
[2019-09-12] MEDS ORDERED: HYDROmorphone 1mg/ml Carpuject IVP SCH (21:45)
[2019-09-13] VITALS: BP 153/85
[2019-09-13] MEDS: HYDROmorphone 1mg/ml Carpuject IVP PRN ×6 (01:51→21:55)
[2019-09-13] MEDS: Albuterol/Ipratropium 3ml neb HHN SCH ×3 (03:21→11:20)
[2019-09-13 04:00] VITALS: BP 147/85
--- NOTE | 2019-09-13 05:00 | Progress Note ---
DATE: 09/12/2019 CARDIOLOGY PROGRESS NOTE SUBJECTIVE: The patient continues to have congestion and chest discomfort. She is wheezing. She has cough. Her monitored rhythm is sinus. PHYSICAL EXAMINATION: LUNGS: Coarse breath sounds. Few rhonchi. Expiratory wheezes. HEART: Regular rhythm and rate. Normal S1 and S2. ABDOMEN: Soft. No edema. LABORATORY DATA: Sodium 142, potassium 4.5, bicarb 30, BUN 16, creatinine 0.8. White count 6.4, hemoglobin 11.2. Urine, 1+ leukocyte esterase. Chest x-ray reveals no acute process. IMPRESSION: 1. Acute bronchospasm. 2. COPD exacerbation. 3. Acute on chronic diastolic congestive heart failure, now clinically compensated. 4. Hypertensive heart disease. 5. Systemic lupus. PLAN: 1. Steroids. 2. Bronchodilators. 3. Maintain current antihypertensive regimen. 4. Transition from IV to oral diet. 5. Maintenance diuretic dose. 6. DVT prophylaxis. Karl Estes M.D. DR: SARAHY JOB#: [id number] CC:
[2019-09-13 06:37] LABS: BASOPHILS % (AUTO) 0.4 % (0.0-2.0); EOSINOPHILS % (AUTO) 0.1 % (0.0-3.0); HEMATOCRIT 34.9 % (37.0-47.0); HEMOGLOBIN 10.4 G/DL (12.0-16.0); MEAN CORPUSCULAR VOLUME 85 FL (80-99); MONOCYTES % (AUTO) 5.5 % (1.0-10.0); NEUTROPHILS % (AUTO) 82.1 % (45.0-75.0); PLATELET COUNT 260 K/UL (150-450); RED CELL DISTRIBUTION WIDTH 18.8 % (11.6-14.8); WHITE BLOOD COUNT 6.1 K/UL (4.8-10.8)
[2019-09-13 07:23] LABS: ALANINE AMINOTRANSFERASE 38 U/L (12-78); ALBUMIN/GLOBULIN RATIO 0.9 (1.0-2.7); ALKALINE PHOSPHATASE 99 U/L (46-116); ANION GAP 9 mmol/L (5-15); ASPARTATE AMINO TRANSFERASE 23 U/L (15-37); BILIRUBIN,TOTAL 0.2 MG/DL (0.2-1.0); BLOOD UREA NITROGEN 20 mg/dL (7-18); CALCIUM 8.8 MG/DL (8.5-10.1); CARBON DIOXIDE 25 MMOL/L (21-32); CHLORIDE 107 MMOL/L (98-107); PHOSPHORUS 2.2 MG/DL (2.5-4.9); POTASSIUM 4.3 MMOL/L (3.5-5.1); SODIUM 141 MMOL/L (136-145)
[2019-09-13 08:00] VITALS: BP 139/70
--- NOTE | 2019-09-13 08:48 | General Progress Note ---
Assessment/Plan Problem List: (1) SLE exacerbation ICD Codes: M32.9 - Systemic lupus erythematosus, unspecified SNOMED: 33722010, 397580147 (2) CHF (congestive heart failure) ICD Codes: I50.9 - Heart failure, unspecified SNOMED: 25657483 (3) COPD (chronic obstructive pulmonary disease) ICD Codes: J44.9 - Chronic obstructive pulmonary disease, unspecified SNOMED: 53790037 (4) Lupus ICD Codes: M32.9 - Systemic lupus erythematosus, unspecified SNOMED: 79746109 (5) Total body pain ICD Codes: R52 - Pain, unspecified SNOMED: 252539583 (6) COVID-19 ruled out ICD Codes: Z03.818 - Encounter for observation for suspected exposure to other biological agents ruled out SNOMED: 741863104, 393264786 Status: stable Assessment/Plan: Continue IV steroids- will wean to daily prn o2 COVID test neg HHN Antibiotics for bronchitis Antiplatelet treatment iv lasix DVT prophylaxis Pain medications as needed cough rx dc planning tomorrow Subjective ROS Limited/Unobtainable: No Constitutional: Reports: malaise, weakness HEENT: Reports: no symptoms Cardiovascular: Reports: no symptoms Respiratory: Reports: cough, shortness of breath Gastrointestinal/Abdominal: Reports: no symptoms Genitourinary: Reports: no symptoms Neurologic/Psychiatric: Reports: anxiety, depressed Endocrine: Reports: no symptoms Hematologic/Lymphatic: Reports: no symptoms Allergies: Coded Allergies: KETOROLAC TROMETHAMINE (Verified Allergy, Severe, Anaphylaxis, 10/22/18) PENICILLINS (Verified Allergy, Severe, Anaphylaxis, 10/22/18) TETRACYCLINE (Verified Allergy, Severe, Anaphylaxis, 10/22/18) HALOPERIDOL LACTATE (Verified Allergy, Intermediate, Anaphylaxis, 10/22/18) ERYTHROMYCIN BASE (Verified Allergy, Mild, 10/22/18) AMPICILLIN (Verified Allergy, Unknown, 10/22/18) ASPIRIN (Verified Allergy, Unknown, 10/22/18) AZITHROMYCIN (Unverified Allergy, Unknown, 04/17/19) IBUPROFEN (Verified Allergy, Unknown, 10/22/18) NAPROXEN (Verified Allergy, Unknown, 10/22/18) Uncoded Allergies: PENICILLIN (Allergy, Unknown, 09/08/19) All Systems: reviewed and negative except above Subjective better today. much less wheezing. off o2. +generalized pain- chronic. no abd pain or nausea or vomiting Objective Last 24 Hour Vital Signs Date Time Temp Pulse Resp B/P (MAP) Pulse Ox O2 Delivery O2 Flow Rate FiO2 09/13/19 08:00 98.2 96 21 139/70 (93) 99 09/13/19 06:22 97.2 09/13/19 04:00 97.2 99 22 147/85 (105) 99 09/13/19 03:21 93 18 100 Room Air 21 96 18 95 09/13/19 00:00 97.8 102 22 153/85 (107) 94 09/12/19 23:45 94 18 99 Room Air 21 91 18 94 09/12/19 21:00 Nasal Cannula 2.0 09/12/19 20:00 98.2 93 22 139/74 (95) 93 09/12/19 19:47 89 18 100 Room Air 21 86 18 95 09/12/19 16:00 98.2 102 16 126/86 (99) 97 09/12/19 15:22 90 18 99 Nasal Cannula 2.0 28 90 18 94 09/12/19 12:00 97.2 102 16 140/97 (111) 97 09/12/19 11:06 94 18 100 Nasal Cannula 2.0 28 88 18 96 09/12/19 09:00 Nasal Cannula 2.0 Intake and Output 09/12/19 09/13/19 19:00 07:00 Intake Total 1640 ml Balance 1640 ml Intake Oral 1640 ml # Voids 3 2 Laboratory Tests 09/13/19 05:10: White Blood Count 6.1, Red Blood Count 4.10L, Hemoglobin 10.4L, Hematocrit 34.9L , Mean Corpuscular Volume 85, Mean Corpuscular Hemoglobin 25.2L, Mean Corpuscular Hemoglobin Concent 29.7L, Red Cell Distribution Width 18.8H, Platelet Count 260, Mean Platelet Volume 6.0L, Neutrophils (%) (Auto) 82.1H, Lymphocytes (%) (Auto) 12.0L, Monocytes (%) (Auto) 5.5, Eosinophils (%) (Auto) 0.1, Basophils (%) (Auto) 0.4, Sodium Level 141, Potassium Level 4.3, Chloride Level 107, Carbon Dioxide Level 25, Anion Gap 9, Blood Urea Nitrogen 20H, Creatinine 1.0, Estimat Glomerular Filtration Rate > 60, Glucose Level 119H, Calcium Level 8.8, Phosphorus Level 2.2L, Magnesium Level 2.0, Total Bilirubin 0.2, Aspartate Amino Transf (AST/SGOT) 23, Alanine Aminotransferase (ALT/SGPT) 38, Alkaline Phosphatase 99, Pro-B-Type Natriuretic Peptide 206H, Total Protein 6.2L, Albumin 3.0L, Globulin 3.2, Albumin/Globulin Ratio 0.9L Height (Feet): 5 Height (Inches): 7.00 Weight (Pounds): 123 Objective General Appearance: WD/WN, alert EENT: normal ENT inspection Neck: non-tender, normal alignment, supple Cardiovascular: normal peripheral pulses, normal rate Respiratory/Chest: minimal wheezing Abdomen: normal bowel sounds, non tender, soft, no organomegaly Edema: no edema noted Arm (L), no edema noted Arm (R), no edema noted Leg (L), no edema noted Leg (R), no edema noted Pedal (L), no edema noted Pedal (R), no edema noted 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
[2019-09-13] MEDS: Heparin 5000 units/ml inj SUBQ SCH ×2 (08:52→21:14)
[2019-09-13 11:46] VITALS: BP 138/66
[2019-09-13] MEDS: Phospha 250 Neutral tab ORAL SCH ×2 (13:55→17:54)
--- NOTE | 2019-09-13 15:12 | Pulmonology Progress Note ---
Subjective ROS Limited/Unobtainable: No Allergies: Coded Allergies: KETOROLAC TROMETHAMINE (Verified Allergy, Severe, Anaphylaxis, 10/22/18) PENICILLINS (Verified Allergy, Severe, Anaphylaxis, 10/22/18) TETRACYCLINE (Verified Allergy, Severe, Anaphylaxis, 10/22/18) HALOPERIDOL LACTATE (Verified Allergy, Intermediate, Anaphylaxis, 10/22/18) ERYTHROMYCIN BASE (Verified Allergy, Mild, 10/22/18) AMPICILLIN (Verified Allergy, Unknown, 10/22/18) ASPIRIN (Verified Allergy, Unknown, 10/22/18) AZITHROMYCIN (Unverified Allergy, Unknown, 04/17/19) IBUPROFEN (Verified Allergy, Unknown, 10/22/18) NAPROXEN (Verified Allergy, Unknown, 10/22/18) Uncoded Allergies: PENICILLIN (Allergy, Unknown, 09/08/19) All Systems: reviewed and negative except above Objective Last 24 Hour Vital Signs Date Time Temp Pulse Resp B/P (MAP) Pulse Ox O2 Delivery O2 Flow Rate FiO2 09/13/19 11:46 98.6 84 19 138/66 (90) 97 09/13/19 11:45 90 18 98 Room Air 21 86 18 94 09/13/19 09:40 Nasal Cannula 2.0 09/13/19 08:00 98.2 96 21 139/70 (93) 99 09/13/19 07:50 88 18 99 Room Air 21 90 18 95 09/13/19 06:22 97.2 09/13/19 04:00 97.2 99 22 147/85 (105) 99 09/13/19 03:21 93 18 100 Room Air 21 96 18 95 09/13/19 00:00 97.8 102 22 153/85 (107) 94 09/12/19 23:45 94 18 99 Room Air 21 91 18 94 09/12/19 21:00 Nasal Cannula 2.0 09/12/19 20:00 98.2 93 22 139/74 (95) 93 09/12/19 19:47 89 18 100 Room Air 21 86 18 95 09/12/19 16:00 98.2 102 16 126/86 (99) 97 09/12/19 15:22 90 18 99 Nasal Cannula 2.0 28 90 18 94 Intake and Output 09/12/19 09/13/19 19:00 07:00 Intake Total 1640 ml Balance 1640 ml Intake Oral 1640 ml # Voids 3 2 Objective WDWN NAD clear breath sounds bilaterally without rhonchi or wheeze [id number] without MRG NABS nontender no HSM no CCE nonfocal confused Laboratory Tests 09/13/19 05:10: White Blood Count 6.1, Red Blood Count 4.10L, Hemoglobin 10.4L, Hematocrit 34.9L , Mean Corpuscular Volume 85, Mean Corpuscular Hemoglobin 25.2L, Mean Corpuscular Hemoglobin Concent 29.7L, Red Cell Distribution Width 18.8H, Platelet Count 260, Mean Platelet Volume 6.0L, Neutrophils (%) (Auto) 82.1H, Lymphocytes (%) (Auto) 12.0L, Monocytes (%) (Auto) 5.5, Eosinophils (%) (Auto) 0.1, Basophils (%) (Auto) 0.4, Sodium Level 141, Potassium Level 4.3, Chloride Level 107, Carbon Dioxide Level 25, Anion Gap 9, Blood Urea Nitrogen 20H, Creatinine 1.0, Estimat Glomerular Filtration Rate > 60, Glucose Level 119H, Calcium Level 8.8, Phosphorus Level 2.2L, Magnesium Level 2.0, Total Bilirubin 0.2, Aspartate Amino Transf (AST/SGOT) 23, Alanine Aminotransferase (ALT/SGPT) 38, Alkaline Phosphatase 99, Pro-B-Type Natriuretic Peptide 206H, Total Protein 6.2L, Albumin 3.0L, Globulin 3.2, Albumin/Globulin Ratio 0.9L Current Medications Medications (Trade) Dose Ordered Sig/Dom Route PRN Reason Start Time Stop Time Status Last Admin Dose Admin Acetaminophen (Tylenol) 500 mg Q4H PRN ORAL Mild Pain (Pain Scale 1-3) 09/11/19 08:06 10/11/19 08:05 Carisoprodol (Soma) 350 mg Q6HR ORAL 09/11/19 12:00 10/08/19 14:32 09/13/19 12:04 Diphenhydramine HCl (Benadryl) 25 mg Q6H PRN IVP Itching 09/11/19 08:06 10/11/19 08:05 Diphenhydramine HCl (Benadryl) 50 mg Q6H PRN IVP Itching 09/11/19 08:08 10/11/19 08:07 Furosemide (Lasix) 20 mg DAILY ORAL 09/13/19 09:00 10/13/19 08:59 09/13/19 08:50 Heparin Sodium (Porcine) (Heparin 5000 units/ml) 5,000 units EVERY 12 HOURS SUBQ 09/11/19 09:00 10/23/19 20:59 09/13/19 08:52 Hydromorphone HCl (Dilaudid) 1 mg Q4H PRN IVP For Pain 09/11/19 08:07 09/18/19 08:06 09/13/19 13:55 Levofloxacin (Levaquin) 250 mg DAILY ORAL 09/11/19 16:30 09/18/19 16:29 09/13/19 08:50 Methylprednisolone Sodium Succinate (Solu-MEDROL) 40 mg Q24H IVP 09/13/19 21:00 12/12/19 20:59 09/13/19 08:51 Ondansetron HCl (Zofran) 4 mg Q6H PRN IVP Nausea & Vomiting 09/11/19 08:07 10/11/19 08:06 Pantoprazole (Protonix) 40 mg DAILY ORAL 09/11/19 09:00 10/09/19 08:59 09/13/19 08:50 Phosphorus (Phospha 250 Neutral) 500 mg THREE TIMES A DAY ORAL 09/13/19 13:00 09/14/19 22:00 09/13/19 13:55 Promethazine HCl/ Codeine (Phenergan with Codeine) 10 ml Q8H PRN ORAL For Cough 09/11/19 16:15 10/11/19 16:14 Assessment/Plan Assessment/Plan ASSESSMENT: This is a 68-year-old female with history of lupus, hypertension, respiratory distress secondary to COPD exacerbation, CHF PLAN respiratory care neb therapy as is IV solumedrol taper oxygen therapy as needed and taper DVT prophylaxis monitor as is and taper meds monitor for improvement and dc planning impression, plan, and exam edited and reviewed in detail care discussed with Aquilino Guzman MD Sep 13, 2019 15:12
[2019-09-13 16:00] VITALS: BP 117/74
--- NOTE | 2019-09-13 17:14 | Progress Note ---
DATE: 09/13/2019 CARDIOLOGY PROGRESS NOTE SUBJECTIVE: The patient is feeling somewhat better today with less congestion and shortness of breath. She remains on round the clock bronchodilator therapy and IV steroids with ongoing wean. Her diuretics have been decreased to maintenance dosing orally. Monitored rhythm sinus. PHYSICAL EXAMINATION: VITAL SIGNS: Blood pressure 139/70, heart rate 96, respirations 21, afebrile. LUNGS: Diminished breath sounds. Few wheezes. CARDIAC: Regular rhythm rate. Normal S1, S2. No new murmur. ABDOMEN: Soft. EXTREMITIES: No edema. Contractures persist. LABORATORY DATA: White count is 6.1, hemoglobin 10.4. Potassium 4.3, BUN 20, creatinine 1, phosphorus 2.2. Pro natriuretic peptide 206. IMPRESSION: Improved. PLAN: 1. Add phosphorus replacement. 2. May need to adjust diuretic dosing as an outpatient due to changes in her diet. Karl Estes M.D. DR: JAMAL JOB#: [id number] CC:
[2019-09-13 20:00] VITALS: BP 145/73
[2019-09-13] MEDS ORDERED: Solu-MEDROL 40mg Inj IVP SCH (21:00)
[2019-09-14] VITALS: BP 135/74
[2019-09-14] MEDS: HYDROmorphone 1mg/ml Carpuject IVP PRN ×6 (01:56→22:03)
[2019-09-14 04:00] VITALS: BP 125/68
--- NOTE | 2019-09-14 06:23 | Pulmonology Progress Note ---
Subjective ROS Limited/Unobtainable: No Allergies: Coded Allergies: KETOROLAC TROMETHAMINE (Verified Allergy, Severe, Anaphylaxis, 10/22/18) PENICILLINS (Verified Allergy, Severe, Anaphylaxis, 10/22/18) TETRACYCLINE (Verified Allergy, Severe, Anaphylaxis, 10/22/18) HALOPERIDOL LACTATE (Verified Allergy, Intermediate, Anaphylaxis, 10/22/18) ERYTHROMYCIN BASE (Verified Allergy, Mild, 10/22/18) AMPICILLIN (Verified Allergy, Unknown, 10/22/18) ASPIRIN (Verified Allergy, Unknown, 10/22/18) AZITHROMYCIN (Unverified Allergy, Unknown, 04/17/19) IBUPROFEN (Verified Allergy, Unknown, 10/22/18) NAPROXEN (Verified Allergy, Unknown, 10/22/18) Uncoded Allergies: PENICILLIN (Allergy, Unknown, 09/08/19) All Systems: reviewed and negative except above Objective Last 24 Hour Vital Signs Date Time Temp Pulse Resp B/P (MAP) Pulse Ox O2 Delivery O2 Flow Rate FiO2 09/14/19 04:00 99.9 96 18 125/68 (87) 95 09/14/19 00:00 99.0 110 22 135/74 (94) 93 09/13/19 21:00 Room Air 09/13/19 20:00 98.2 102 16 145/73 (97) 93 09/13/19 16:00 99.1 102 18 117/74 (88) 95 09/13/19 15:30 90 18 97 Room Air 21 83 18 93 09/13/19 15:30 83 18 94 Room Air 21 09/13/19 11:46 98.6 84 19 138/66 (90) 97 09/13/19 11:45 90 18 98 Room Air 21 86 18 94 09/13/19 09:40 Nasal Cannula 2.0 09/13/19 08:00 98.2 96 21 139/70 (93) 99 09/13/19 07:50 88 18 99 Room Air 21 90 18 95 Intake and Output 09/13/19 09/14/19 19:00 07:00 Intake Total 600 ml 840 ml Output Total 1000 ml Balance 600 ml -160 ml Intake Oral 600 ml 840 ml Output Urine Total 1000 ml # Voids 2 4 Current Medications Medications (Trade) Dose Ordered Sig/Dom Route PRN Reason Start Time Stop Time Status Last Admin Dose Admin Acetaminophen (Tylenol) 500 mg Q4H PRN ORAL Mild Pain (Pain Scale 1-3) 09/11/19 08:06 10/11/19 08:05 Carisoprodol (Soma) 350 mg Q6HR ORAL 09/11/19 12:00 10/08/19 14:32 09/14/19 05:20 Diphenhydramine HCl (Benadryl) 25 mg Q6H PRN IVP Itching 09/11/19 08:06 10/11/19 08:05 Diphenhydramine HCl (Benadryl) 50 mg Q6H PRN IVP Itching 09/11/19 08:08 10/11/19 08:07 Furosemide (Lasix) 20 mg DAILY ORAL 09/13/19 09:00 10/13/19 08:59 09/13/19 08:50 Heparin Sodium (Porcine) (Heparin 5000 units/ml) 5,000 units EVERY 12 HOURS SUBQ 09/11/19 09:00 10/23/19 20:59 09/13/19 21:14 Hydromorphone HCl (Dilaudid) 1 mg Q4H PRN IVP For Pain 09/11/19 08:07 09/18/19 08:06 09/14/19 05:56 Levofloxacin (Levaquin) 250 mg DAILY ORAL 09/11/19 16:30 09/18/19 16:29 09/13/19 08:50 Methylprednisolone Sodium Succinate (Solu-MEDROL) 40 mg Q24H IVP 09/14/19 09:00 12/13/19 08:59 Ondansetron HCl (Zofran) 4 mg Q6H PRN IVP Nausea & Vomiting 09/11/19 08:07 10/11/19 08:06 Pantoprazole (Protonix) 40 mg DAILY ORAL 09/11/19 09:00 10/09/19 08:59 09/13/19 08:50 Phosphorus (Phospha 250 Neutral) 500 mg THREE TIMES A DAY ORAL 09/13/19 13:00 09/14/19 22:00 09/13/19 17:54 Promethazine HCl/ Codeine (Phenergan with Codeine) 10 ml Q8H PRN ORAL For Cough 09/11/19 16:15 10/11/19 16:14 Assessment/Plan Assessment/Plan Pulmonary Progress Note Subjective ROS Limited/Unobtainable: No Allergies: Coded Allergies: KETOROLAC TROMETHAMINE (Verified Allergy, Severe, Anaphylaxis, 10/22/18) PENICILLINS (Verified Allergy, Severe, Anaphylaxis, 10/22/18) TETRACYCLINE (Verified Allergy, Severe, Anaphylaxis, 10/22/18) HALOPERIDOL LACTATE (Verified Allergy, Intermediate, Anaphylaxis, 10/22/18) ERYTHROMYCIN BASE (Verified Allergy, Mild, 10/22/18) AMPICILLIN (Verified Allergy, Unknown, 10/22/18) ASPIRIN (Verified Allergy, Unknown, 10/22/18) AZITHROMYCIN (Unverified Allergy, Unknown, 04/17/19) IBUPROFEN (Verified Allergy, Unknown, 10/22/18) NAPROXEN (Verified Allergy, Unknown, 10/22/18) Uncoded Allergies: PENICILLIN (Allergy, Unknown, 09/08/19) All Systems: reviewed and negative except above Objective Vital Signs Noted Objective WDWN NAD clear breath sounds bilaterally [id number] without MRG NABS nontender no HSM no CCE nonfocal confused Laboratory Tests Noted Current Medications Medications (Trade) Dose Ordered Sig/Dom Route PRN Reason Start Time Stop Time Status Last Admin Dose Admin Acetaminophen (Tylenol) 500 mg Q4H PRN ORAL Mild Pain (Pain Scale 1-3) 09/11/19 08:06 10/11/19 08:05 Carisoprodol (Soma) 350 mg Q6HR ORAL 09/11/19 12:00 10/08/19 14:32 09/13/19 12:04 Diphenhydramine HCl (Benadryl) 25 mg Q6H PRN IVP Itching 09/11/19 08:06 10/11/19 08:05 Diphenhydramine HCl (Benadryl) 50 mg Q6H PRN IVP Itching 09/11/19 08:08 10/11/19 08:07 Furosemide (Lasix) 20 mg DAILY ORAL 09/13/19 09:00 10/13/19 08:59 09/13/19 08:50 Heparin Sodium (Porcine) (Heparin 5000 units/ml) 5,000 units EVERY 12 HOURS SUBQ 09/11/19 09:00 10/23/19 20:59 09/13/19 08:52 Hydromorphone HCl (Dilaudid) 1 mg Q4H PRN IVP For Pain 09/11/19 08:07 09/18/19 08:06 09/13/19 13:55 Levofloxacin (Levaquin) 250 mg DAILY ORAL 09/11/19 16:30 09/18/19 16:29 09/13/19 08:50 Methylprednisolone Sodium Succinate (Solu-MEDROL) 40 mg Q24H IVP 09/13/19 21:00 12/12/19 20:59 09/13/19 08:51 Ondansetron HCl (Zofran) 4 mg Q6H PRN IVP Nausea & Vomiting 09/11/19 08:07 10/11/19 08:06 Pantoprazole (Protonix) 40 mg DAILY ORAL 09/11/19 09:00 10/09/19 08:59 09/13/19 08:50 Phosphorus (Phospha 250 Neutral) 500 mg THREE TIMES A DAY ORAL 09/13/19 13:00 09/14/19 22:00 09/13/19 13:55 Promethazine HCl/ Codeine (Phenergan with Codeine) 10 ml Q8H PRN ORAL For Cough 09/11/19 16:15 10/11/19 16:14 Assessment/Plan Assessment/Plan ASSESSMENT: This is a 68-year-old female with history of lupus, hypertension, respiratory distress secondary to COPD exacerbation, CHF PLAN respiratory care neb therapy as is IV solumedrol taper oxygen therapy as needed and taper DVT prophylaxis monitor as is and taper meds monitor for improvement and dc planning impression, plan, and exam edited and reviewed in detail care discussed with Karl Sutton MD Sep 14, 2019 06:23
[2019-09-14 08:00] VITALS: BP 115/73
[2019-09-14] MEDS: Albuterol ud Inhalation HHN PRN (08:13)
[2019-09-14] MEDS: Phospha 250 Neutral tab ORAL SCH ×3 (08:44→17:19)
[2019-09-14] MEDS: Heparin 5000 units/ml inj SUBQ SCH ×2 (08:48→20:40)
[2019-09-14] MEDS ORDERED: Solu-MEDROL 40mg Inj IVP SCH ×2 (09:00)
--- NOTE | 2019-09-14 09:28 | General Progress Note ---
Assessment/Plan Problem List: (1) SLE exacerbation ICD Codes: M32.9 - Systemic lupus erythematosus, unspecified SNOMED: 97436891, 660386096 (2) CHF (congestive heart failure) ICD Codes: I50.9 - Heart failure, unspecified SNOMED: 49430392 (3) COPD (chronic obstructive pulmonary disease) ICD Codes: J44.9 - Chronic obstructive pulmonary disease, unspecified SNOMED: 83619454 (4) Lupus ICD Codes: M32.9 - Systemic lupus erythematosus, unspecified SNOMED: 68124223 (5) Total body pain ICD Codes: R52 - Pain, unspecified SNOMED: 823604355 (6) COVID-19 ruled out ICD Codes: Z03.818 - Encounter for observation for suspected exposure to other biological agents ruled out SNOMED: 071403088, 903077466 Status: stable Assessment/Plan: Continue IV steroids- will wean to daily prn o2 COVID test neg HHN reordered Antibiotics for bronchitis Antiplatelet treatment iv lasix DVT prophylaxis Pain medications as needed cough rx dc planning on hold Subjective ROS Limited/Unobtainable: No Constitutional: Reports: malaise, weakness HEENT: Reports: no symptoms Cardiovascular: Reports: no symptoms Respiratory: Reports: cough, shortness of breath, wheezing Gastrointestinal/Abdominal: Reports: no symptoms Genitourinary: Reports: no symptoms Neurologic/Psychiatric: Reports: no symptoms Endocrine: Reports: no symptoms Hematologic/Lymphatic: Reports: no symptoms Allergies: Coded Allergies: KETOROLAC TROMETHAMINE (Verified Allergy, Severe, Anaphylaxis, 10/22/18) PENICILLINS (Verified Allergy, Severe, Anaphylaxis, 10/22/18) TETRACYCLINE (Verified Allergy, Severe, Anaphylaxis, 10/22/18) HALOPERIDOL LACTATE (Verified Allergy, Intermediate, Anaphylaxis, 10/22/18) ERYTHROMYCIN BASE (Verified Allergy, Mild, 10/22/18) AMPICILLIN (Verified Allergy, Unknown, 10/22/18) ASPIRIN (Verified Allergy, Unknown, 10/22/18) AZITHROMYCIN (Unverified Allergy, Unknown, 04/17/19) IBUPROFEN (Verified Allergy, Unknown, 10/22/18) NAPROXEN (Verified Allergy, Unknown, 10/22/18) Uncoded Allergies: PENICILLIN (Allergy, Unknown, 09/08/19) All Systems: reviewed and negative except above Subjective much worse. ran out of resp rx. ?dcd. didnet get any treatment since yesterday. now with increase wheezing and sob. increased cough. Objective Last 24 Hour Vital Signs Date Time Temp Pulse Resp B/P (MAP) Pulse Ox O2 Delivery O2 Flow Rate FiO2 09/14/19 08:13 106 22 98 Room Air 21 103 22 94 09/14/19 08:00 97.9 102 18 115/73 (87) 95 09/14/19 06:26 97.9 09/14/19 04:00 99.9 96 18 125/68 (87) 95 09/14/19 00:00 99.0 110 22 135/74 (94) 93 09/13/19 21:00 Room Air 09/13/19 20:00 98.2 102 16 145/73 (97) 93 09/13/19 16:00 99.1 102 18 117/74 (88) 95 09/13/19 15:30 90 18 97 Room Air 21 83 18 93 09/13/19 15:30 83 18 94 Room Air 21 09/13/19 11:46 98.6 84 19 138/66 (90) 97 09/13/19 11:45 90 18 98 Room Air 21 86 18 94 09/13/19 09:40 Nasal Cannula 2.0 Intake and Output 09/13/19 09/14/19 19:00 07:00 Intake Total 600 ml 840 ml Output Total 1000 ml Balance 600 ml -160 ml Intake Oral 600 ml 840 ml Output Urine Total 1000 ml # Voids 2 4 Height (Feet): 5 Height (Inches): 7.00 Weight (Pounds): 123 Objective General Appearance: WD/WN, alert EENT: normal ENT inspection Neck: non-tender, normal alignment, supple Cardiovascular: normal peripheral pulses, normal rate Respiratory/Chest: diffuse wheezing Abdomen: normal bowel sounds, non tender, soft, no organomegaly Edema: no edema noted Arm (L), no edema noted Arm (R), no edema noted Leg (L), no edema noted Leg (R), no edema noted Pedal (L), no edema noted Pedal (R), no edema noted 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
[2019-09-14 12:00] VITALS: BP 125/65
[2019-09-14 16:00] VITALS: BP 121/56
[2019-09-14 20:00] VITALS: BP 130/73
[2019-09-15] VITALS: BP 138/77
[2019-09-15] MEDS: HYDROmorphone 1mg/ml Carpuject IVP PRN ×5 (02:03→20:41)
[2019-09-15 04:00] VITALS: BP 143/82
[2019-09-15] MEDS: Albuterol ud Inhalation HHN PRN (07:27)
--- NOTE | 2019-09-15 07:39 | General Progress Note ---
Assessment/Plan Problem List: (1) SLE exacerbation ICD Codes: M32.9 - Systemic lupus erythematosus, unspecified SNOMED: 39474970, 360219131 (2) CHF (congestive heart failure) ICD Codes: I50.9 - Heart failure, unspecified SNOMED: 55317143 (3) COPD (chronic obstructive pulmonary disease) ICD Codes: J44.9 - Chronic obstructive pulmonary disease, unspecified SNOMED: 06681509 (4) Lupus ICD Codes: M32.9 - Systemic lupus erythematosus, unspecified SNOMED: 72285392 (5) Total body pain ICD Codes: R52 - Pain, unspecified SNOMED: 272432656 (6) COVID-19 ruled out ICD Codes: Z03.818 - Encounter for observation for suspected exposure to other biological agents ruled out SNOMED: 954721192, 473560552 Status: stable Assessment/Plan: Continue IV steroids- will wean to daily prn o2 COVID test neg. will reorder per RT request- refusing to give resp rx until pt has 2 neg covid. HHN reordered Antibiotics for bronchitis Antiplatelet treatment iv lasix DVT prophylaxis Pain medications as needed cough rx dc planning on hold Subjective ROS Limited/Unobtainable: No Constitutional: Reports: malaise, weakness HEENT: Reports: no symptoms Cardiovascular: Reports: no symptoms Respiratory: Reports: cough, shortness of breath, wheezing Gastrointestinal/Abdominal: Reports: no symptoms Genitourinary: Reports: no symptoms Neurologic/Psychiatric: Reports: no symptoms Endocrine: Reports: no symptoms Hematologic/Lymphatic: Reports: no symptoms Allergies: Coded Allergies: KETOROLAC TROMETHAMINE (Verified Allergy, Severe, Anaphylaxis, 10/22/18) PENICILLINS (Verified Allergy, Severe, Anaphylaxis, 10/22/18) TETRACYCLINE (Verified Allergy, Severe, Anaphylaxis, 10/22/18) HALOPERIDOL LACTATE (Verified Allergy, Intermediate, Anaphylaxis, 10/22/18) ERYTHROMYCIN BASE (Verified Allergy, Mild, 10/22/18) AMPICILLIN (Verified Allergy, Unknown, 10/22/18) ASPIRIN (Verified Allergy, Unknown, 10/22/18) AZITHROMYCIN (Unverified Allergy, Unknown, 04/17/19) IBUPROFEN (Verified Allergy, Unknown, 10/22/18) NAPROXEN (Verified Allergy, Unknown, 10/22/18) Uncoded Allergies: PENICILLIN (Allergy, Unknown, 09/08/19) All Systems: reviewed and negative except above Subjective still wheezing. night RT refused to give breathing treatment despite neg covid x 1, Objective Last 24 Hour Vital Signs Date Time Temp Pulse Resp B/P (MAP) Pulse Ox O2 Delivery O2 Flow Rate FiO2 09/15/19 06:33 98.0 09/15/19 04:00 98.0 92 19 143/82 (102) 97 09/15/19 00:00 97.6 99 19 138/77 (97) 95 09/14/19 21:00 Room Air 09/14/19 20:00 97.9 105 19 130/73 (92) 95 09/14/19 17:48 98.2 09/14/19 16:00 98.2 94 20 121/56 (77) 94 09/14/19 12:00 98.2 95 20 125/65 (85) 94 09/14/19 09:00 Room Air 09/14/19 08:13 106 22 98 Room Air 21 103 22 94 09/14/19 08:00 97.9 102 18 115/73 (87) 95 Intake and Output 09/14/19 09/15/19 19:00 07:00 Intake Total 600 ml Balance 600 ml Intake Oral 600 ml # Voids 3 Height (Feet): 5 Height (Inches): 7.00 Weight (Pounds): 123 Objective General Appearance: WD/WN, alert EENT: normal ENT inspection Neck: non-tender, normal alignment, supple Cardiovascular: normal peripheral pulses, normal rate Respiratory/Chest: diffuse wheezing Abdomen: normal bowel sounds, non tender, soft, no organomegaly Edema: no edema noted Arm (L), no edema noted Arm (R), no edema noted Leg (L), no edema noted Leg (R), no edema noted Pedal (L), no edema noted Pedal (R), no edema noted 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
[2019-09-15 08:00] VITALS: BP 115/58
--- NOTE | 2019-09-15 08:15 | Pulmonology Progress Note ---
Subjective ROS Limited/Unobtainable: No Allergies: Coded Allergies: KETOROLAC TROMETHAMINE (Verified Allergy, Severe, Anaphylaxis, 10/22/18) PENICILLINS (Verified Allergy, Severe, Anaphylaxis, 10/22/18) TETRACYCLINE (Verified Allergy, Severe, Anaphylaxis, 10/22/18) HALOPERIDOL LACTATE (Verified Allergy, Intermediate, Anaphylaxis, 10/22/18) ERYTHROMYCIN BASE (Verified Allergy, Mild, 10/22/18) AMPICILLIN (Verified Allergy, Unknown, 10/22/18) ASPIRIN (Verified Allergy, Unknown, 10/22/18) AZITHROMYCIN (Unverified Allergy, Unknown, 04/17/19) IBUPROFEN (Verified Allergy, Unknown, 10/22/18) NAPROXEN (Verified Allergy, Unknown, 10/22/18) Uncoded Allergies: PENICILLIN (Allergy, Unknown, 09/08/19) All Systems: reviewed and negative except above Objective Last 24 Hour Vital Signs Date Time Temp Pulse Resp B/P (MAP) Pulse Ox O2 Delivery O2 Flow Rate FiO2 09/15/19 06:33 98.0 09/15/19 04:00 98.0 92 19 143/82 (102) 97 09/15/19 00:00 97.6 99 19 138/77 (97) 95 09/14/19 21:00 Room Air 09/14/19 20:00 97.9 105 19 130/73 (92) 95 09/14/19 17:48 98.2 09/14/19 16:00 98.2 94 20 121/56 (77) 94 09/14/19 12:00 98.2 95 20 125/65 (85) 94 09/14/19 09:00 Room Air Intake and Output 09/14/19 09/15/19 19:00 07:00 Intake Total 600 ml Balance 600 ml Intake Oral 600 ml # Voids 3 Current Medications Medications (Trade) Dose Ordered Sig/Dom Route PRN Reason Start Time Stop Time Status Last Admin Dose Admin Acetaminophen (Tylenol) 500 mg Q4H PRN ORAL Mild Pain (Pain Scale 1-3) 09/11/19 08:06 10/11/19 08:05 Albuterol Sulfate (Proventil) 2.5 mg Q4H PRN HHN Shortness of Breath 09/14/19 08:00 09/19/19 07:59 09/15/19 07:27 Albuterol/ Ipratropium (Combivent Respimat) 4 puff Q6HRT INH 09/15/19 08:30 10/15/19 08:29 Carisoprodol (Soma) 350 mg Q6HR ORAL 09/11/19 12:00 10/08/19 14:32 09/15/19 06:41 Diphenhydramine HCl (Benadryl) 25 mg Q6H PRN IVP Itching 09/11/19 08:06 10/11/19 08:05 Diphenhydramine HCl (Benadryl) 50 mg Q6H PRN IVP Itching 09/11/19 08:08 10/11/19 08:07 Furosemide (Lasix) 20 mg DAILY ORAL 09/13/19 09:00 10/13/19 08:59 09/14/19 08:45 Heparin Sodium (Porcine) (Heparin 5000 units/ml) 5,000 units EVERY 12 HOURS SUBQ 09/11/19 09:00 10/23/19 20:59 09/14/19 20:40 Hydromorphone HCl (Dilaudid) 1 mg Q4H PRN IVP For Pain 09/11/19 08:07 09/18/19 08:06 09/15/19 06:03 Levofloxacin (Levaquin) 250 mg DAILY ORAL 09/11/19 16:30 09/18/19 16:29 09/14/19 08:45 Methylprednisolone Sodium Succinate (Solu-MEDROL) 30 mg Q24H IVP 09/14/19 09:00 12/13/19 08:59 09/14/19 08:48 Ondansetron HCl (Zofran) 4 mg Q6H PRN IVP Nausea & Vomiting 09/11/19 08:07 10/11/19 08:06 Pantoprazole (Protonix) 40 mg DAILY ORAL 09/11/19 09:00 10/09/19 08:59 09/14/19 08:45 Promethazine HCl/ Codeine (Phenergan with Codeine) 10 ml Q8H PRN ORAL For Cough 09/11/19 16:15 10/11/19 16:14 Assessment/Plan Assessment/Plan Pulmonary Progress Note Subjective ROS Limited/Unobtainable: No new complaints Allergies: Coded Allergies: KETOROLAC TROMETHAMINE (Verified Allergy, Severe, Anaphylaxis, 10/22/18) PENICILLINS (Verified Allergy, Severe, Anaphylaxis, 10/22/18) TETRACYCLINE (Verified Allergy, Severe, Anaphylaxis, 10/22/18) HALOPERIDOL LACTATE (Verified Allergy, Intermediate, Anaphylaxis, 10/22/18) ERYTHROMYCIN BASE (Verified Allergy, Mild, 10/22/18) AMPICILLIN (Verified Allergy, Unknown, 10/22/18) ASPIRIN (Verified Allergy, Unknown, 10/22/18) AZITHROMYCIN (Unverified Allergy, Unknown, 04/17/19) IBUPROFEN (Verified Allergy, Unknown, 10/22/18) NAPROXEN (Verified Allergy, Unknown, 10/22/18) Uncoded Allergies: PENICILLIN (Allergy, Unknown, 09/08/19) All Systems: reviewed and negative except above Objective Vital Signs Noted Objective WDWN Facialand scalp depigmentation NAD clear breath sounds bilaterally [id number] without MRG NABS nontender no HSM no CCE nonfocal confused Laboratory Tests Noted Assessment/Plan ASSESSMENT: This is a 68-year-old female with history of lupus, hypertension, respiratory distress secondary to COPD exacerbation, CHF PLAN respiratory care Continue HHN IV solumedrol taper oxygen therapy as needed and taper DVT prophylaxis monitor as is and taper meds monitor for improvement and dc planning impression, plan, and exam edited and reviewed in detail care discussed with Karl Sutton MD Sep 15, 2019 08:15
[2019-09-15] MEDS ORDERED: Solu-MEDROL 40mg Inj IVP SCH (09:00)
[2019-09-15] MEDS: Heparin 5000 units/ml inj SUBQ SCH ×2 (09:47→20:42)
[2019-09-15 12:00] VITALS: BP 136/92
[2019-09-15 16:00] VITALS: BP 130/75
[2019-09-15 18:34] LABS: APPEARANCE,URINE CLEAR; BILIRUBIN, URINE NEGATIVE (NEGATIVE); COLOR,URINE PALE YELLOW; GLUCOSE, URINE (UA) NEGATIVE (NEGATIVE); KETONES,URINE NEGATIVE (NEGATIVE); LEUKOCYTE ESTERASE ,URINE 1+ (NEGATIVE); NITRITE,URINE NEGATIVE (NEGATIVE); PH,URINE 8 (4.5-8.0); PROTEIN,URINE NEGATIVE (NEGATIVE); UROBILINOGEN,URINE NORMAL MG/DL (0.0-1.0)
[2019-09-15 19:29] LABS: BASOPHILS % (AUTO) 0.7 % (0.0-2.0); EOSINOPHILS % (AUTO) 0.1 % (0.0-3.0); HEMATOCRIT 35.7 % (37.0-47.0); HEMOGLOBIN 10.8 G/DL (12.0-16.0); LYMPHOCYTES % (AUTO) 13.5 % (20.0-45.0); MEAN CORPUSCULAR VOLUME 84 FL (80-99); NEUTROPHILS % (AUTO) 80.6 % (45.0-75.0); PLATELET COUNT 283 K/UL (150-450); RED BLOOD COUNT 4.24 M/UL (4.20-5.40); RED CELL DISTRIBUTION WIDTH 20.4 % (11.6-14.8); WHITE BLOOD COUNT 7.4 K/UL (4.8-10.8)
[2019-09-15 19:44] LABS: ALANINE AMINOTRANSFERASE 50 U/L (12-78); ALBUMIN 3.1 G/DL (3.4-5.0); ALBUMIN/GLOBULIN RATIO 0.9 (1.0-2.7); ALKALINE PHOSPHATASE 99 U/L (46-116); ANION GAP 12 mmol/L (5-15); ASPARTATE AMINO TRANSFERASE 26 U/L (15-37); BILIRUBIN,TOTAL 0.2 MG/DL (0.2-1.0); BLOOD UREA NITROGEN 20 mg/dL (7-18); CALCIUM 8.9 MG/DL (8.5-10.1); CARBON DIOXIDE 23 MMOL/L (21-32); CHLORIDE 106 MMOL/L (98-107); CREATININE 1.1 MG/DL (0.55-1.30); POTASSIUM 4.1 MMOL/L (3.5-5.1); SODIUM 141 MMOL/L (136-145)
[2019-09-15 20:00] VITALS: BP 115/68
[2019-09-16] VITALS: BP 122/60
[2019-09-16] MEDS: HYDROmorphone 1mg/ml Carpuject IVP PRN ×6 (00:39→20:47)
[2019-09-16] MEDS: Albuterol ud Inhalation HHN PRN (01:38)
[2019-09-16 04:00] VITALS: BP 130/74
[2019-09-16 08:00] VITALS: BP 132/71
--- NOTE | 2019-09-16 08:42 | Pulmonology Progress Note ---
Subjective ROS Limited/Unobtainable: No Allergies: Coded Allergies: KETOROLAC TROMETHAMINE (Verified Allergy, Severe, Anaphylaxis, 10/22/18) PENICILLINS (Verified Allergy, Severe, Anaphylaxis, 10/22/18) TETRACYCLINE (Verified Allergy, Severe, Anaphylaxis, 10/22/18) HALOPERIDOL LACTATE (Verified Allergy, Intermediate, Anaphylaxis, 10/22/18) ERYTHROMYCIN BASE (Verified Allergy, Mild, 10/22/18) AMPICILLIN (Verified Allergy, Unknown, 10/22/18) ASPIRIN (Verified Allergy, Unknown, 10/22/18) AZITHROMYCIN (Unverified Allergy, Unknown, 04/17/19) IBUPROFEN (Verified Allergy, Unknown, 10/22/18) NAPROXEN (Verified Allergy, Unknown, 10/22/18) Uncoded Allergies: PENICILLIN (Allergy, Unknown, 09/08/19) All Systems: reviewed and negative except above Subjective comfortable no distress Objective Last 24 Hour Vital Signs Date Time Temp Pulse Resp B/P (MAP) Pulse Ox O2 Delivery O2 Flow Rate FiO2 09/16/19 04:00 98.1 86 19 130/74 (92) 97 09/16/19 01:38 88 20 99 Room Air 21 86 20 96 09/16/19 00:00 97.4 88 19 122/60 (80) 96 09/15/19 21:00 Room Air 09/15/19 20:19 87 18 95 Room Air 21 09/15/19 20:00 97.9 97 19 115/68 (84) 94 09/15/19 18:44 98.2 09/15/19 18:44 98.2 09/15/19 16:00 100.4 109 20 130/75 (93) 95 09/15/19 12:00 98.2 92 18 136/92 (107) 94 09/15/19 09:00 Room Air Intake and Output 09/15/19 09/16/19 19:00 07:00 Intake Total 500 ml Balance 500 ml Intake Oral 500 ml # Voids 12 2 # Bowel Movements 1 Objective WDWN NAD clear breath sounds bilaterally without rhonchi or wheeze [id number] without MRG NABS nontender no HSM no CCE nonfocal confused Microbiology Date/Time Source Procedure Growth Status 09/15/19 17:46 Urine,Clean Catch Urine Culture - Preliminary NO GROWTH Resulted Laboratory Tests 09/15/19 17:46: Urine Color Pale yellow, Urine Appearance Clear, Urine pH 8, Urine Specific [place] 1.010, Urine Protein Negative, Urine Glucose (UA) Negative, Urine Ketones Negative, Urine Blood Negative, Urine Nitrite Negative, Urine Bilirubin Negative, Urine Urobilinogen Normal, Urine Leukocyte Esterase 1+H, Urine RBC 0-2 , Urine WBC 5-10H, Urine Squamous Epithelial Cells ModerateH, Urine Bacteria Few 09/15/19 19:10: White Blood Count 7.4, Red Blood Count 4.24, Hemoglobin 10.8L, Hematocrit 35.7L , Mean Corpuscular Volume 84, Mean Corpuscular Hemoglobin 25.5L, Mean Corpuscular Hemoglobin Concent 30.2L, Red Cell Distribution Width 20.4H, Platelet Count 283, Mean Platelet Volume 6.3L, Neutrophils (%) (Auto) 80.6H, Lymphocytes (%) (Auto) 13.5L, Monocytes (%) (Auto) 5.0, Eosinophils (%) (Auto) 0.1, Basophils (%) (Auto) 0.7, Sodium Level 141, Potassium Level 4.1, Chloride Level 106, Carbon Dioxide Level 23, Anion Gap 12, Blood Urea Nitrogen 20H, Creatinine 1.1, Estimat Glomerular Filtration Rate 59.9, Glucose Level 141H, Calcium Level 8.9, Total Bilirubin 0.2, Aspartate Amino Transf (AST/SGOT) 26, Alanine Aminotransferase (ALT/SGPT) 50, Alkaline Phosphatase 99, Total Protein 6.5, Albumin 3.1L, Globulin 3.4, Albumin/Globulin Ratio 0.9L Current Medications Medications (Trade) Dose Ordered Sig/Dom Route PRN Reason Start Time Stop Time Status Last Admin Dose Admin Acetaminophen (Tylenol) 500 mg Q4H PRN ORAL Mild Pain (Pain Scale 1-3) 09/11/19 08:06 10/11/19 08:05 Acetaminophen (Tylenol) 650 mg Q4H PRN ORAL FEVER 09/15/19 17:15 10/15/19 17:14 09/15/19 17:40 Albuterol Sulfate (Proventil) 2.5 mg Q4H PRN HHN Shortness of Breath 09/14/19 08:00 09/19/19 07:59 09/16/19 01:38 Albuterol/ Ipratropium (Albuterol/ Ipratropium) 3 ml Q4HRT HHN 09/16/19 11:00 09/21/19 10:59 Carisoprodol (Soma) 350 mg Q6HR ORAL 09/11/19 12:00 10/08/19 14:32 09/16/19 06:01 Diphenhydramine HCl (Benadryl) 25 mg Q6H PRN IVP Itching 09/11/19 08:06 10/11/19 08:05 Diphenhydramine HCl (Benadryl) 50 mg Q6H PRN IVP Itching 09/11/19 08:08 10/11/19 08:07 Furosemide (Lasix) 20 mg DAILY ORAL 09/13/19 09:00 10/13/19 08:59 09/15/19 09:45 Heparin Sodium (Porcine) (Heparin 5000 units/ml) 5,000 units EVERY 12 HOURS SUBQ 09/11/19 09:00 10/23/19 20:59 09/15/19 20:42 Hydromorphone HCl (Dilaudid) 1 mg Q4H PRN IVP For Pain 09/11/19 08:07 09/18/19 08:06 09/16/19 04:45 Levofloxacin (Levaquin) 250 mg DAILY ORAL 09/11/19 16:30 09/18/19 16:29 09/15/19 09:46 Methylprednisolone Sodium Succinate (Solu-MEDROL) 20 mg Q24H IVP 09/15/19 09:00 12/13/19 08:59 09/15/19 09:45 Ondansetron HCl (Zofran) 4 mg Q6H PRN IVP Nausea & Vomiting 09/11/19 08:07 10/11/19 08:06 Pantoprazole (Protonix) 40 mg DAILY ORAL 09/11/19 09:00 10/09/19 08:59 09/15/19 09:45 Promethazine HCl/ Codeine (Phenergan with Codeine) 10 ml Q8H PRN ORAL For Cough 09/11/19 16:15 10/11/19 16:14 Assessment/Plan Assessment/Plan ASSESSMENT: This is a 68-year-old female with history of lupus, hypertension, respiratory distress secondary to COPD exacerbation, CHF PLAN respiratory care neb therapy as is dc solumedrol oxygen therapy PRN DVT prophylaxis monitor for change monitor for improvement and dc planning ok per pulmonary impression, plan, and exam edited and reviewed in detail care discussed with Aquilino Guzman MD Sep 16, 2019 08:42
[2019-09-16] MEDS: Heparin 5000 units/ml inj SUBQ SCH ×2 (08:46→20:48)
--- NOTE | 2019-09-16 09:32 | General Progress Note ---
Assessment/Plan Problem List: (1) SLE exacerbation ICD Codes: M32.9 - Systemic lupus erythematosus, unspecified SNOMED: 05616367, 502305852 (2) CHF (congestive heart failure) ICD Codes: I50.9 - Heart failure, unspecified SNOMED: 47250956 (3) COPD (chronic obstructive pulmonary disease) ICD Codes: J44.9 - Chronic obstructive pulmonary disease, unspecified SNOMED: 54208166 (4) Lupus ICD Codes: M32.9 - Systemic lupus erythematosus, unspecified SNOMED: 48521658 (5) Total body pain ICD Codes: R52 - Pain, unspecified SNOMED: 192482580 (6) COVID-19 ruled out ICD Codes: Z03.818 - Encounter for observation for suspected exposure to other biological agents ruled out SNOMED: 341499539, 044612200 Status: stable Assessment/Plan: off steroids per pulm prn o2 COVID test neg. will reorder per RT request- refusing to give resp rx until pt has 2 neg covid. HHN reordered Antibiotics for bronchitis Antiplatelet treatment iv lasix DVT prophylaxis Pain medications as needed cough rx dc planning on hold Subjective ROS Limited/Unobtainable: No Constitutional: Reports: malaise, weakness HEENT: Reports: no symptoms Cardiovascular: Reports: no symptoms Respiratory: Reports: cough, shortness of breath, wheezing Gastrointestinal/Abdominal: Reports: no symptoms Genitourinary: Reports: no symptoms Neurologic/Psychiatric: Reports: no symptoms Endocrine: Reports: no symptoms Hematologic/Lymphatic: Reports: no symptoms Allergies: Coded Allergies: KETOROLAC TROMETHAMINE (Verified Allergy, Severe, Anaphylaxis, 10/22/18) PENICILLINS (Verified Allergy, Severe, Anaphylaxis, 10/22/18) TETRACYCLINE (Verified Allergy, Severe, Anaphylaxis, 10/22/18) HALOPERIDOL LACTATE (Verified Allergy, Intermediate, Anaphylaxis, 10/22/18) ERYTHROMYCIN BASE (Verified Allergy, Mild, 10/22/18) AMPICILLIN (Verified Allergy, Unknown, 10/22/18) ASPIRIN (Verified Allergy, Unknown, 10/22/18) AZITHROMYCIN (Unverified Allergy, Unknown, 04/17/19) IBUPROFEN (Verified Allergy, Unknown, 10/22/18) NAPROXEN (Verified Allergy, Unknown, 10/22/18) Uncoded Allergies: PENICILLIN (Allergy, Unknown, 09/08/19) All Systems: reviewed and negative except above Subjective still wheezing. still only getting mdi per RN. no chest pain no fever or chills. on o2 Objective Last 24 Hour Vital Signs Date Time Temp Pulse Resp B/P (MAP) Pulse Ox O2 Delivery O2 Flow Rate FiO2 09/16/19 08:00 98.6 100 20 132/71 (91) 98 09/16/19 04:00 98.1 86 19 130/74 (92) 97 09/16/19 01:38 88 20 99 Room Air 21 86 20 96 09/16/19 00:00 97.4 88 19 122/60 (80) 96 09/15/19 21:00 Room Air 09/15/19 20:19 87 18 95 Room Air 21 09/15/19 20:00 97.9 97 19 115/68 (84) 94 09/15/19 18:44 98.2 09/15/19 18:44 98.2 09/15/19 16:00 100.4 109 20 130/75 (93) 95 09/15/19 12:00 98.2 92 18 136/92 (107) 94 Intake and Output 09/15/19 09/16/19 19:00 07:00 Intake Total 500 ml Balance 500 ml Intake Oral 500 ml # Voids 12 2 # Bowel Movements 1 Laboratory Tests 09/15/19 17:46: Urine Color Pale yellow, Urine Appearance Clear, Urine pH 8, Urine Specific [place] 1.010, Urine Protein Negative, Urine Glucose (UA) Negative, Urine Ketones Negative, Urine Blood Negative, Urine Nitrite Negative, Urine Bilirubin Negative, Urine Urobilinogen Normal, Urine Leukocyte Esterase 1+H, Urine RBC 0-2 , Urine WBC 5-10H, Urine Squamous Epithelial Cells ModerateH, Urine Bacteria Few 09/15/19 19:10: White Blood Count 7.4, Red Blood Count 4.24, Hemoglobin 10.8L, Hematocrit 35.7L , Mean Corpuscular Volume 84, Mean Corpuscular Hemoglobin 25.5L, Mean Corpuscular Hemoglobin Concent 30.2L, Red Cell Distribution Width 20.4H, Platelet Count 283, Mean Platelet Volume 6.3L, Neutrophils (%) (Auto) 80.6H, Lymphocytes (%) (Auto) 13.5L, Monocytes (%) (Auto) 5.0, Eosinophils (%) (Auto) 0.1, Basophils (%) (Auto) 0.7, Sodium Level 141, Potassium Level 4.1, Chloride Level 106, Carbon Dioxide Level 23, Anion Gap 12, Blood Urea Nitrogen 20H, Creatinine 1.1, Estimat Glomerular Filtration Rate 59.9, Glucose Level 141H, Calcium Level 8.9, Total Bilirubin 0.2, Aspartate Amino Transf (AST/SGOT) 26, Alanine Aminotransferase (ALT/SGPT) 50, Alkaline Phosphatase 99, Total Protein 6.5, Albumin 3.1L, Globulin 3.4, Albumin/Globulin Ratio 0.9L Height (Feet): 5 Height (Inches): 7.00 Weight (Pounds): 123 Objective General Appearance: WD/WN, alert EENT: normal ENT inspection Neck: non-tender, normal alignment, supple Cardiovascular: normal peripheral pulses, normal rate Respiratory/Chest: diffuse wheezing Abdomen: normal bowel sounds, non tender, soft, no organomegaly Edema: no edema noted Arm (L), no edema noted Arm (R), no edema noted Leg (L), no edema noted Leg (R), no edema noted Pedal (L), no edema noted Pedal (R), no edema noted Generalized 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
[2019-09-16] MEDS: Albuterol/Ipratropium 3ml neb HHN SCH ×4 (11:00→23:26)
[2019-09-16 12:00] VITALS: BP 128/73
--- NOTE | 2019-09-16 14:46 | Diagnostic Imaging Report ---
EXAM: XR Chest, 1 View CLINICAL HISTORY: INFECT TECHNIQUE: Frontal view of the chest. COMPARISON: Chest radiograph on 09/12/2019 FINDINGS: Hardware: None. Lungs/pleura: Similar to slightly increased patchy opacities in the lower lungs. Hyperinflation of the lungs is suggestive of COPD. No pleural effusion or pneumothorax. Heart/mediastinum: Stable mild enlargement of the cardiac silhouette. Atherosclerotic calcifications of the aorta. Soft tissues: Unremarkable. Bones: No acute fracture. Upper abdomen: Normal. IMPRESSION: Similar to slightly increased patchy opacities in the lower lungs which may represent chronic lung changes and/or infectious/inflammatory process.
[2019-09-16 16:00] VITALS: BP 138/86
[2019-09-16 19:59] VITALS: BP 133/83
[2019-09-17] VITALS: BP 121/70
[2019-09-17] MEDS: HYDROmorphone 1mg/ml Carpuject IVP PRN ×5 (00:47→17:43)
[2019-09-17] MEDS: Albuterol/Ipratropium 3ml neb HHN SCH ×6 (03:23→19:00)
[2019-09-17 04:00] VITALS: BP 130/75
[2019-09-17 08:00] VITALS: BP 125/75
[2019-09-17] MEDS: Heparin 5000 units/ml inj SUBQ SCH ×2 (08:11→20:31)
--- NOTE | 2019-09-17 08:45 | Pulmonology Progress Note ---
Subjective ROS Limited/Unobtainable: Yes Allergies: Coded Allergies: KETOROLAC TROMETHAMINE (Verified Allergy, Severe, Anaphylaxis, 10/22/18) PENICILLINS (Verified Allergy, Severe, Anaphylaxis, 10/22/18) TETRACYCLINE (Verified Allergy, Severe, Anaphylaxis, 10/22/18) HALOPERIDOL LACTATE (Verified Allergy, Intermediate, Anaphylaxis, 10/22/18) ERYTHROMYCIN BASE (Verified Allergy, Mild, 10/22/18) AMPICILLIN (Verified Allergy, Unknown, 10/22/18) ASPIRIN (Verified Allergy, Unknown, 10/22/18) AZITHROMYCIN (Unverified Allergy, Unknown, 04/17/19) IBUPROFEN (Verified Allergy, Unknown, 10/22/18) NAPROXEN (Verified Allergy, Unknown, 10/22/18) Uncoded Allergies: PENICILLIN (Allergy, Unknown, 09/08/19) All Systems: reviewed and negative except above Subjective comfortable no distress Objective Last 24 Hour Vital Signs Date Time Temp Pulse Resp B/P (MAP) Pulse Ox O2 Delivery O2 Flow Rate FiO2 09/17/19 06:45 98 24 98 Room Air 21 105 24 94 09/17/19 06:43 94 Room Air 21 09/17/19 04:00 98.1 95 20 130/75 (93) 92 09/17/19 03:33 90 18 98 Room Air 21 09/17/19 03:23 92 18 95 Room Air 21 09/17/19 00:00 98.1 94 20 121/70 (87) 93 09/16/19 23:36 89 18 99 Room Air 21 09/16/19 23:26 89 18 95 Room Air 21 09/16/19 20:52 Room Air 09/16/19 19:59 98.3 13 20 133/83 (100) 99 09/16/19 19:50 98 20 98 Room Air 21 09/16/19 19:39 94 Room Air 21 09/16/19 19:39 101 20 94 Room Air 21 09/16/19 16:08 97 20 99 Room Air 21 93 20 95 09/16/19 16:00 98.6 112 20 138/86 (103) 95 09/16/19 12:00 98.2 93 19 128/73 (91) 95 09/16/19 11:45 90 Room Air 21 09/16/19 11:44 93 20 97 Room Air 21 92 20 91 09/16/19 09:00 Room Air Intake and Output 09/16/19 09/17/19 19:00 07:00 Intake Total 600 ml 700 ml Balance 600 ml 700 ml Intake Oral 600 ml 700 ml # Voids 2 2 Objective WDWN NAD clear breath sounds bilaterally without rhonchi or wheeze [id number] without MRG NABS nontender no HSM no CCE nonfocal confused Microbiology Date/Time Source Procedure Growth Status 09/15/19 19:10 Blood Blood Culture - Preliminary NO GROWTH AFTER 24 HOURS Resulted 09/15/19 17:46 Urine,Clean Catch Urine Culture - Preliminary NO GROWTH Resulted Current Medications Medications (Trade) Dose Ordered Sig/Dom Route PRN Reason Start Time Stop Time Status Last Admin Dose Admin Acetaminophen (Tylenol) 500 mg Q4H PRN ORAL Mild Pain (Pain Scale 1-3) 09/11/19 08:06 10/11/19 08:05 Acetaminophen (Tylenol) 650 mg Q4H PRN ORAL FEVER 09/15/19 17:15 10/15/19 17:14 09/15/19 17:40 Albuterol Sulfate (Proventil) 2.5 mg Q4H PRN HHN Shortness of Breath 09/14/19 08:00 09/19/19 07:59 09/16/19 01:38 Albuterol/ Ipratropium (Albuterol/ Ipratropium) 3 ml Q4HRT HHN 09/16/19 11:00 09/21/19 10:59 09/17/19 06:43 Carisoprodol (Soma) 350 mg Q6HR ORAL 09/11/19 12:00 10/08/19 14:32 09/17/19 05:56 Diphenhydramine HCl (Benadryl) 25 mg Q6H PRN IVP Itching 09/11/19 08:06 10/11/19 08:05 Diphenhydramine HCl (Benadryl) 50 mg Q6H PRN IVP Itching 09/11/19 08:08 10/11/19 08:07 Furosemide (Lasix) 20 mg DAILY ORAL 09/13/19 09:00 10/13/19 08:59 09/17/19 08:10 Heparin Sodium (Porcine) (Heparin 5000 units/ml) 5,000 units EVERY 12 HOURS SUBQ 09/11/19 09:00 10/23/19 20:59 09/17/19 08:11 Hydromorphone HCl (Dilaudid) 1 mg Q4H PRN IVP For Pain 09/11/19 08:07 09/18/19 08:06 09/17/19 04:47 Levofloxacin (Levaquin) 250 mg DAILY ORAL 09/11/19 16:30 09/18/19 16:29 09/17/19 08:09 Ondansetron HCl (Zofran) 4 mg Q6H PRN IVP Nausea & Vomiting 09/11/19 08:07 10/11/19 08:06 Pantoprazole (Protonix) 40 mg DAILY ORAL 09/11/19 09:00 10/09/19 08:59 09/17/19 08:10 Promethazine HCl/ Codeine (Phenergan with Codeine) 10 ml Q8H PRN ORAL For Cough 09/11/19 16:15 10/11/19 16:14 Assessment/Plan Assessment/Plan ASSESSMENT: This is a 68-year-old female with history of lupus, hypertension, respiratory distress secondary to COPD exacerbation, CHF PLAN respiratory care neb therapy as is off solumedrol oxygen therapy PRN DVT prophylaxis monitor for change and optimize monitor for improvement and dc planning ok per pulmonary impression, plan, and exam edited and reviewed in detail care discussed with Aquilino Guzman MD Sep 17, 2019 08:45
[2019-09-17] MEDS ORDERED: HYDROcodone/Acetamin 10/325 tab ORAL PRN (09:00)
[2019-09-17 12:00] VITALS: BP 130/70
[2019-09-17 16:00] VITALS: BP 125/65
[2019-09-17 20:26] VITALS: BP 124/68
--- NOTE | 2019-09-18 07:45 | Discharge Summary ---
DATE OF ADMISSION: 09/08/2019 DATE OF DISCHARGE: 09/17/2019 ADMISSION DIAGNOSES: 1. Asthma exacerbation. 2. CHF exacerbation. 3. Pneumonia. 4. Possible lupus flare. 5. Chronic pain. 6. Hyperkalemia. DISCHARGE DIAGNOSES: 1. Asthma exacerbation. 2. CHF exacerbation. 3. Pneumonia. 4. Possible lupus flare. 5. Chronic pain. 6. Hyperkalemia. HOSPITAL COURSE: The patient is an unfortunate 68-year-old female who has a history of lupus, asthma/COPD, hypertension, presented with complaints of shortness of breath. She was diagnosed with COPD exacerbation, mild heart failure, steroids, IV antibiotics. She was cautiously diuresed. She had slow improvement in her breathing treatments. Of note, she did not receive any breathing treatments because her respiratory therapist refused to give it because they were concerned about her having COVID. She was COVID negative. She did gradually improve, and on discharge she was stable. She will be discharged with a prednisone taper. She was asked to follow up with her PMD. DISCHARGE MEDICATIONS: Please see discharge medication list for discharge medications. DIET: Cardiac diet. ACTIVITIES: Ad jojo. Flakito Reyes M.D. DR: MIKE JOB#: [id number] CC:
== END 2019-09-17 22:00 | disposition home or self-care (01) | DRG 346 ==
LOC: EDBD 09:10 → EMR 09:46 → EDBEDREQ 13:47 → 2E 14:07 → 4E 09-11 08:04
DX: M32.9 Systemic lupus erythematosus, unspecified (principal); I11.0 Hypertensive heart disease with heart failure; I50.33 Acute on chronic diastolic (congestive) heart failure; J44.1 Chronic obstructive pulmonary disease with (acute) exacerbation; G89.29 Other chronic pain; E44.1 Mild protein-calorie malnutrition; Z68.1 Body mass index [BMI] 19.9 or less, adult; Z88.6 Allergy status to analgesic agent; Z88.1 Allergy status to other antibiotic agents; Z88.0 Allergy status to penicillin; Z88.8 Allergy status to other drugs, medicaments and biological substances; E87.5 Hyperkalemia; Z87.891 Personal history of nicotine dependence; J18.9 Pneumonia, unspecified organism; H54.8 Legal blindness, as defined in USA; Z20.828 Contact with and (suspected) exposure to other viral communicable diseases; R06.03 Acute respiratory distress
CPT/HCPCS: 36415; 71045; 80053; 81001; 83735; 83880; 84100; 84443; 84484; 84550; 85025; 85651; 86140; 87040; 87086; 93005; 94640; 94664; 96374; 96375; 99285; C9399; J7620; J8499; U0002

== ENCOUNTER 2019-09-18 07:37 | Emergency (ER) | payer MEDICARE, OTHER ==
[~2019-09-18] VITALS: Ht 162.6 cm; Wt 63.5 kg
--- NOTE | 2019-09-18 07:41 | NUR ---
ED Nurse Note: Pt was brought in by ambulance from home d/t generalized severe pain. Per EMS pt has hx of COPD, Lupus; per report, pt got discharged from hospital yesterday. Pt was placed on bed, VSS, satting at 95-96% on RA, afebrile on triage.
[2019-09-18 07:46] VITALS: BP 130/80
--- NOTE | 2019-09-18 07:53 | Emergency Room Report ---
History of Present Illness General Chief Complaint: Dyspnea/Respdistress Source: Patient, Medical Record, EMS Present Illness HPI Patient has a history of COPD. Patient has a history of emphysema pneumonia and congestive heart failure. Patient also has history of lupus. Patient presents emergency department today complaining cute onset of chest discomfort associated with some shortness of breath and body aches. Patient states that she thinks that she is having a lupus flare. When further questioned patient states that the pain is actually throughout her body and she needs pain control. She denies any fever. She denies any nausea vomiting. Of note patient was recently admitted to the hospital and discharged yesterday. Since then the pain is gotten worse since discharge. He denies any leg pain leg swelling. No other complaints are noted. Symptoms noted to be severe. No other modifying factors. No other associated signs and symptoms. No other complaints were noted. Allergies: Coded Allergies: KETOROLAC TROMETHAMINE (Verified Allergy, Severe, Anaphylaxis, 10/22/18) PENICILLINS (Verified Allergy, Severe, Anaphylaxis, 10/22/18) TETRACYCLINE (Verified Allergy, Severe, Anaphylaxis, 10/22/18) HALOPERIDOL LACTATE (Verified Allergy, Intermediate, Anaphylaxis, 10/22/18) ERYTHROMYCIN BASE (Verified Allergy, Mild, 10/22/18) AMPICILLIN (Verified Allergy, Unknown, 10/22/18) ASPIRIN (Verified Allergy, Unknown, 10/22/18) AZITHROMYCIN (Unverified Allergy, Unknown, 04/17/19) IBUPROFEN (Verified Allergy, Unknown, 10/22/18) NAPROXEN (Verified Allergy, Unknown, 10/22/18) Uncoded Allergies: AMPICILLINS (Allergy, Unknown, 09/18/19) PENICILLIN (Allergy, Unknown, 09/08/19) COVID-19 Screening Contact w/high risk pt: No Recent Travel to affected area: No Experienced COVID-19 symptoms?: Yes COVID-19 symptoms experienced: Shortness of Breath, Cough COVID-19 Testing performed OUTPATIENT SURGERY RN: Yes COVID-19 Screening: Negative COVID-19 COVID-19 Testing Source: [employer] Patient History Past Medical History: CAD, CHF, COPD, pneumonia Social History: Denies: smoking, alcohol use, drug use Reviewed Nursing Documentation: PMH: Agreed; PSxH: Agreed Nursing Documentation-PMH Past Medical History: No History, Except For Hx Cardiac Problems: Yes Hx Hypertension: No Hx Pacemaker: No Hx Asthma: Yes Hx COPD: Yes Hx Diabetes: No Hx Cancer: No Hx Gastrointestinal Problems: No Hx Dialysis: No History Of Psychiatric Problem: No Hx Neurological Problems: Yes - LUPUS Hx Cerebrovascular Accident: Yes - stroke Hx Seizures: No Hx Weakness: Yes Hx Neurologic Surgery: No Hx Brain Shunt: No Review of Systems All Other Systems: negative except mentioned in HPI Physical Exam Vital Signs Date Time Temp Pulse Resp B/P (MAP) Pulse Ox O2 Delivery O2 Flow Rate FiO2 09/18/19 07:41 98.2 110 20 130/80 (97) 96 Room Air Sp02 EP Interpretation: reviewed, normal General Appearance: alert, mild distress Head: atraumatic Eyes: bilateral eye normal inspection ENT: normal ENT inspection, hearing grossly normal, normal voice Neck: normal inspection, full range of motion, supple, no bony tend Respiratory: normal inspection, no respiratory distress, no retraction, other - Decreased breath sounds. No rhonchi noted. Cardiovascular #1: regular rate, rhythm, no edema Gastrointestinal: normal inspection, normal bowel sounds, non tender, soft, no guarding, no hernia Genitourinary: no CVA tenderness Musculoskeletal: normal inspection, back normal, normal range of motion Neurologic: alert, responsive, speech normal, normal inspection Psychiatric: normal inspection, judgement/insight normal, anxious Skin: no rash Medical Decision Making Diagnostic Impression: Primary Impression: Lupus ER Course Patient presents emergency department today complaining of diffuse body pain. Differential considerations include acute coronary syndrome, pneumonia, CHF, viral syndrome, lupus flare just to name a few. Given the severity of the patient's presentation I felt this is a highly complex patient. This patient required extensive workup. Patient's laboratory work-up is not concerning. EKG chest x-ray were normal. However given severe patient's pain patient required multiple doses of pain medication. Given the acute lupus exacerbation I felt the patient require admission. Case was discussed with Dr. Petty. Patient is stable for transfer and will be transferred to [facility] once a bed is available. Labs Test 09/18/19 08:20 White Blood Count 10.4 K/UL (4.8-10.8) Red Blood Count 4.79 M/UL (4.20-5.40) Hemoglobin 12.4 G/DL (12.0-16.0) Hematocrit 39.7 % (37.0-47.0) Mean Corpuscular Volume 83 FL (80-99) Mean Corpuscular Hemoglobin 25.9 PG (27.0-31.0) Mean Corpuscular Hemoglobin Concent 31.3 G/DL (32.0-36.0) Red Cell Distribution Width 20.4 % (11.6-14.8) Platelet Count 248 K/UL (150-450) Mean Platelet Volume 6.6 FL (6.5-10.1) Neutrophils (%) (Auto) 70.8 % (45.0-75.0) Lymphocytes (%) (Auto) 15.9 % (20.0-45.0) Monocytes (%) (Auto) 10.4 % (1.0-10.0) Eosinophils (%) (Auto) 0.9 % (0.0-3.0) Basophils (%) (Auto) 2.1 % (0.0-2.0) Sodium Level 147 MMOL/L (136-145) Potassium Level 3.6 MMOL/L (3.5-5.1) Chloride Level 115 MMOL/L (98-107) Carbon Dioxide Level 22 MMOL/L (21-32) Anion Gap 10 mmol/L (5-15) Blood Urea Nitrogen 15 mg/dL (7-18) Creatinine 0.5 MG/DL (0.55-1.30) Estimat Glomerular Filtration Rate > 60 mL/min (>60) Glucose Level 77 MG/DL (74-106) Calcium Level 7.2 MG/DL (8.5-10.1) Total Bilirubin 0.4 MG/DL (0.2-1.0) Aspartate Amino Transf (AST/SGOT) 39 U/L (15-37) Alanine Aminotransferase (ALT/SGPT) 48 U/L (12-78) Alkaline Phosphatase 65 U/L (46-116) Troponin I 0.000 ng/mL (0.000-0.056) Total Protein 5.5 G/DL (6.4-8.2) Albumin 2.5 G/DL (3.4-5.0) Globulin 3.0 g/dL Albumin/Globulin Ratio 0.8 (1.0-2.7) Lipase 224 U/L (73-393) EKG Diagnostic Results Rate: normal Rhythm: NSR ST Segments: no acute changes Rhythm Strip Diag. Results EP Interpretation: yes Rate: 96 Rhythm: NSR, no PVC's, no ectopy Chest X-Ray Diagnostic Results Chest X-Ray Diagnostic Results : Chest X-Ray Ordered: Yes # of Views/Limited/Complete: 1 View Indication: Chest Pain EP Interpretation: Yes Interpretation: no consolidation, no effusion, no pneumothorax, no acute cardiopulmonary disease Impression: No acute disease Electronically Signed by: Electronically signed by Conrad Garcia MD Last Vital Signs Date Time Temp Pulse Resp B/P (MAP) Pulse Ox O2 Delivery O2 Flow Rate FiO2 09/18/19 07:46 110 20 Room Air 09/18/19 07:46 98.2 130/80 96 Status: improved Disposition: SHORT-TERM HOSP Condition: Serious Conrad Garcia MD Sep 18, 2019 07:53
[2019-09-18] MEDS ORDERED: HYDROmorphone 1mg/ml Carpuject IVP ONE ×2 (08:00→09:30)
--- NOTE | 2019-09-18 08:33 | NUR ---
ED Nurse Note: x-ray at bedside.
[2019-09-18 08:35] LABS: BASOPHILS % (AUTO) 2.1 % (0.0-2.0); EOSINOPHILS % (AUTO) 0.9 % (0.0-3.0); HEMATOCRIT 39.7 % (37.0-47.0); HEMOGLOBIN 12.4 G/DL (12.0-16.0); LYMPHOCYTES % (AUTO) 15.9 % (20.0-45.0); MEAN CORPUSCULAR VOLUME 83 FL (80-99); MONOCYTES % (AUTO) 10.4 % (1.0-10.0); NEUTROPHILS % (AUTO) 70.8 % (45.0-75.0); PLATELET COUNT 248 K/UL (150-450); RED BLOOD COUNT 4.79 M/UL (4.20-5.40); RED CELL DISTRIBUTION WIDTH 20.4 % (11.6-14.8); WHITE BLOOD COUNT 10.4 K/UL (4.8-10.8)
[2019-09-18 08:47] LABS: ANION GAP 10 mmol/L (5-15); BLOOD UREA NITROGEN 15 mg/dL (7-18); CALCIUM 7.2 MG/DL (8.5-10.1); CARBON DIOXIDE 22 MMOL/L (21-32); CHLORIDE 115 MMOL/L (98-107); CREATININE 0.5 MG/DL (0.55-1.30); POTASSIUM 3.6 MMOL/L (3.5-5.1); SODIUM 147 MMOL/L (136-145)
[2019-09-18 08:52] LABS: ALANINE AMINOTRANSFERASE 48 U/L (12-78); ALBUMIN 2.5 G/DL (3.4-5.0); ALBUMIN/GLOBULIN RATIO 0.8 (1.0-2.7); ALKALINE PHOSPHATASE 65 U/L (46-116); ASPARTATE AMINO TRANSFERASE 39 U/L (15-37); BILIRUBIN,TOTAL 0.4 MG/DL (0.2-1.0)
[2019-09-18] MEDS ORDERED: DiphenhydrAMINE 50mg/ml Inj IVP ONE (09:30)
[2019-09-18 09:43] VITALS: BP 153/80
--- NOTE | 2019-09-18 10:06 | Diagnostic Imaging Report ---
Procedure: XRAY Chest 1v Reason for study: Chest pain Comparison films: 09/15/2019. FINDINGS: A single one view chest is obtained. Vascularity is normal. There is mild hazy densities at the periphery of both upper lungs perhaps early infiltrates. Cardiac and mediastinal silhouette are within normal limits. CP angles are sharp. The bony thorax appear unremarkable. IMPRESSION: Possible early hazy peripheral infiltrates upper lungs.
--- NOTE | 2019-09-18 12:07 | NUR ---
ED Nurse Note: report given to BRENDA Llanos in [facility] for transfer of care.
[2019-09-18 12:08] VITALS: BP 153/112
--- NOTE | 2019-09-18 12:08 | NUR ---
ED Nurse Note: Pt was transferred to [facility] under the care of Dr. Petty. Pt was picked up by BLS transport, on stable condition, VSS. Report was given to BRENDA Llanos in [facility]. All belongings was sent with pt.
== END 2019-09-18 12:08 | disposition short-term general hospital (02) ==
LOC: EDBD 07:37 → EMR 07:54
DX: M32.9 Systemic lupus erythematosus, unspecified (principal); J44.9 Chronic obstructive pulmonary disease, unspecified; I25.10 Atherosclerotic heart disease of native coronary artery without angina pectoris; I50.9 Heart failure, unspecified; Z88.0 Allergy status to penicillin; Z88.6 Allergy status to analgesic agent; Z88.8 Allergy status to other drugs, medicaments and biological substances; Z86.73 Personal history of transient ischemic attack (TIA), and cerebral infarction without residual deficits
CPT/HCPCS: 36415; 71045; 80053; 83690; 84484; 85025; 93005; 96374; 96375; 96376; 99284; J1170; J1200; J7040

== ENCOUNTER 2019-09-23 23:39 | Emergency (ER) | payer MEDICARE, OTHER ==
[~2019-09-23] VITALS: Ht 165.1 cm; Wt 72.6 kg
[2019-09-24] MEDS ORDERED: Morphine Sulfate 4mg/ml Inj (IV USE ONLY) IVP ONE
[2019-09-24] MEDS ORDERED: Solu-MEDROL 125mg Inj IVP ONE
[2019-09-24] MEDS: Ipratropium 0.02% Inh Soln 2.5ml UD HHN SCH ×3 (00:15→00:51)
[2019-09-24] MEDS: Albuterol ud Inhalation HHN SCH ×3 (00:15→00:54)
--- NOTE | 2019-09-24 00:24 | Emergency Room Report ---
History of Present Illness General Chief Complaint: Chest Pain Source: Patient, EMS Present Illness HPI 68-year-old female presents the ED for shortness of breath and chest pain. Brought in by EMS from home. Started today. Patient states she has history of COPD and CHF. History of lupus. Was discharged today from another hospital and [facility] Was supposed to be discharged with home oxygen which they did not provide yet. Was also given a prescription for oxycodone but she was not able to fill that prescription yet. Pain is dull, 8 out of 10, nonradiating. Denies fevers or chills. Denies cough. No other aggravating relieving factors. Denies any other associated symptoms Allergies: Coded Allergies: KETOROLAC TROMETHAMINE (Verified Allergy, Severe, Anaphylaxis, 10/22/18) PENICILLINS (Verified Allergy, Severe, Anaphylaxis, 10/22/18) TETRACYCLINE (Verified Allergy, Severe, Anaphylaxis, 10/22/18) HALOPERIDOL LACTATE (Verified Allergy, Intermediate, Anaphylaxis, 10/22/18) ERYTHROMYCIN BASE (Verified Allergy, Mild, 10/22/18) AMPICILLIN (Verified Allergy, Unknown, 10/22/18) ASPIRIN (Verified Allergy, Unknown, 10/22/18) AZITHROMYCIN (Unverified Allergy, Unknown, 04/17/19) IBUPROFEN (Verified Allergy, Unknown, 10/22/18) NAPROXEN (Verified Allergy, Unknown, 10/22/18) Uncoded Allergies: AMPICILLINS (Allergy, Unknown, 09/18/19) PENICILLIN (Allergy, Unknown, 09/08/19) COVID-19 Screening Contact w/high risk pt: No Recent Travel to affected area: No Experienced COVID-19 symptoms?: No COVID-19 symptoms experienced: Shortness of Breath, Cough COVID-19 Testing performed DIRECTOR OF MATERIALS: No Patient History Past Medical History: asthma, COPD, CVA/TIA, other - lupus Past Surgical History: none Pertinent Family History: none Social History: Denies: smoking, alcohol use, drug use Last Menstrual Period: NA Now: No Immunizations: UTD Reviewed Nursing Documentation: PMH: Agreed; PSxH: Agreed Nursing Documentation-PMH Hx Cardiac Problems: Yes Hx Hypertension: No Hx Pacemaker: No Hx Asthma: Yes Hx COPD: Yes Hx Diabetes: No Hx Cancer: No Hx Gastrointestinal Problems: No Hx Dialysis: No Hx Neurological Problems: Yes - LUPUS Hx Cerebrovascular Accident: Yes - stroke Hx Seizures: No Hx Weakness: Yes Hx Neurologic Surgery: No Hx Brain Shunt: No Review of Systems All Other Systems: negative except mentioned in HPI Physical Exam Vital Signs Date Time Temp Pulse Resp B/P (MAP) Pulse Ox O2 Delivery O2 Flow Rate FiO2 09/23/19 23:37 98.4 90 20 162/89 (113) 99 Room Air Sp02 EP Interpretation: reviewed, normal General Appearance: no apparent distress, alert, GCS 15, non-toxic Head: normocephalic, atraumatic Eyes: bilateral eye normal inspection, bilateral eye PERRL ENT: hearing grossly normal, normal pharynx, no angioedema, normal voice Neck: full range of motion, supple/symm/no masses Respiratory: chest non-tender, normal breath sounds, decreased breath sounds, speaking full sentences, wheezing Cardiovascular #1: regular rate, rhythm, no edema Cardiovascular #2: 2+ carotid (R), 2+ carotid (L), 2+ radial (R), 2+ radial (L) , 2+ dorsalis pedis (R), 2+ dorsalis pedis (L) Gastrointestinal: normal bowel sounds, non tender, soft, non-distended, no guarding, no rebound Rectal: deferred Genitourinary: normal inspection, no CVA tenderness Musculoskeletal: back normal, normal range of motion, gait/station normal, non- tender Neurologic: alert, motor strength/tone normal, oriented x3, sensory intact, responsive, speech normal Psychiatric: judgement/insight normal, memory normal, mood/affect normal, no suicidal/homicidal ideation Reflexes: 3+ bicep (R), 3+ bicep (L), 3+ tricep (R), 3+ tricep (L), 3+ knee (R) , 3+ knee (L) Skin: other - see nursing notes Lymphatic: no adenopathy Medical Decision Making Diagnostic Impression: Primary Impression: COPD (chronic obstructive pulmonary disease) Qualified Codes: J44.9 - Chronic obstructive pulmonary disease, unspecified Additional Impression: Exacerbation of systemic lupus ER Course Hospital Course 68year-old F presenting to ED with CP. h/o COPD and lupus Differential diagnoses include: Pneumonia, CHF exacerbation, pneumothorax, fluid overload Clinical course Patient placed on stretcher. On ultrasonic tester with stable vitals. After initial history and physical, I ordered nebulizer treatments, pain meds, solumedrol. I ordered labs, IV fluids, EKG, chest x-ray, blood cultures, UA. Labs - noted leukocytosis noted, hemoglobin/hematocrit stable, electrolytes okay, lactate okay, troponins negative CXR - hyperinflated lungs. no infiltrates EKG - NSR no acute ischemic changes interpreted by me Patient is well-known to [facility]. Has been here multiple times recently. Has been admitted twice already in August. Was discharged today without oxygen and without her pain med prescriptions. Patient has poor social support system. Not believe patient can be discharged to home to her own care. I believe patient requires custodial facility care and treatment. Because of insurance patient will be transferred I feel this is a highly complex case requiring extensive working including EKG/ Rhythm strip, Xray/CT/US, Blood/urine lab work, repeat exams while in ED, and administration of strong opiates/narcotics for pain control, admission to hospital or close patient follow up. Diagnosis - COPD exacerbation, exacerbation of systemic lupus transferred in serious condition Labs Test 09/24/19 00:20 09/24/19 01:01 White Blood Count 14.8 K/UL (4.8-10.8) Red Blood Count 4.38 M/UL (4.20-5.40) Hemoglobin 11.3 G/DL (12.0-16.0) Hematocrit 35.9 % (37.0-47.0) Mean Corpuscular Volume 82 FL (80-99) Mean Corpuscular Hemoglobin 25.8 PG (27.0-31.0) Mean Corpuscular Hemoglobin Concent 31.5 G/DL (32.0-36.0) Red Cell Distribution Width 18.7 % (11.6-14.8) Platelet Count 276 K/UL (150-450) Mean Platelet Volume 6.2 FL (6.5-10.1) Neutrophils (%) (Auto) 81.2 % (45.0-75.0) Lymphocytes (%) (Auto) 8.4 % (20.0-45.0) Monocytes (%) (Auto) 8.4 % (1.0-10.0) Eosinophils (%) (Auto) 0.0 % (0.0-3.0) Basophils (%) (Auto) 2.0 % (0.0-2.0) Sodium Level 139 MMOL/L (136-145) Potassium Level 4.3 MMOL/L (3.5-5.1) Chloride Level 106 MMOL/L (98-107) Carbon Dioxide Level 25 MMOL/L (21-32) Anion Gap 8 mmol/L (5-15) Blood Urea Nitrogen 42 mg/dL (7-18) Creatinine 0.9 MG/DL (0.55-1.30) Estimat Glomerular Filtration Rate > 60 mL/min (>60) Glucose Level 107 MG/DL (74-106) Lactic Acid Level 1.20 mmol/L (0.4-2.0) Calcium Level 9.3 MG/DL (8.5-10.1) Total Bilirubin 0.2 MG/DL (0.2-1.0) Aspartate Amino Transf (AST/SGOT) 27 U/L (15-37) Alanine Aminotransferase (ALT/SGPT) 50 U/L (12-78) Alkaline Phosphatase 105 U/L (46-116) Troponin I 0.015 ng/mL (0.000-0.056) Pro-B-Type Natriuretic Peptide 506 pg/mL (0-125) Total Protein 6.7 G/DL (6.4-8.2) Albumin 3.2 G/DL (3.4-5.0) Globulin 3.5 g/dL Albumin/Globulin Ratio 0.9 (1.0-2.7) Urine Color Pale yellow Urine Appearance Clear Urine pH 6 (4.5-8.0) Urine Specific [place] 1.020 (1.005-1.035) Urine Protein Negative (NEGATIVE) Urine Glucose (UA) Negative (NEGATIVE) Urine Ketones Negative (NEGATIVE) Urine Blood Negative (NEGATIVE) Urine Nitrite Negative (NEGATIVE) Urine Bilirubin Negative (NEGATIVE) Urine Urobilinogen Normal MG/DL (0.0-1.0) Urine Leukocyte Esterase Negative (NEGATIVE) Hematology Test 09/24/19 00:20 White Blood Count 14.8 K/UL (4.8-10.8) H Red Blood Count 4.38 M/UL (4.20-5.40) Hemoglobin 11.3 G/DL (12.0-16.0) L Hematocrit 35.9 % (37.0-47.0) L Mean Corpuscular Volume 82 FL (80-99) Mean Corpuscular Hemoglobin 25.8 PG (27.0-31.0) L Mean Corpuscular Hemoglobin Concent 31.5 G/DL (32.0-36.0) L Red Cell Distribution Width 18.7 % (11.6-14.8) H Platelet Count 276 K/UL (150-450) Mean Platelet Volume 6.2 FL (6.5-10.1) L Neutrophils (%) (Auto) 81.2 % (45.0-75.0) H Lymphocytes (%) (Auto) 8.4 % (20.0-45.0) L Monocytes (%) (Auto) 8.4 % (1.0-10.0) Eosinophils (%) (Auto) 0.0 % (0.0-3.0) Basophils (%) (Auto) 2.0 % (0.0-2.0) Chemistry Test 09/24/19 00:20 Sodium Level 139 MMOL/L (136-145) Potassium Level 4.3 MMOL/L (3.5-5.1) Chloride Level 106 MMOL/L (98-107) Carbon Dioxide Level 25 MMOL/L (21-32) Anion Gap 8 mmol/L (5-15) Blood Urea Nitrogen 42 mg/dL (7-18) H Creatinine 0.9 MG/DL (0.55-1.30) Estimat Glomerular Filtration Rate > 60 mL/min (>60) Glucose Level 107 MG/DL (74-106) H Lactic Acid Level 1.20 mmol/L (0.4-2.0) Calcium Level 9.3 MG/DL (8.5-10.1) Total Bilirubin 0.2 MG/DL (0.2-1.0) Aspartate Amino Transf (AST/SGOT) 27 U/L (15-37) Alanine Aminotransferase (ALT/SGPT) 50 U/L (12-78) Alkaline Phosphatase 105 U/L (46-116) Troponin I 0.015 ng/mL (0.000-0.056) Pro-B-Type Natriuretic Peptide 506 pg/mL (0-125) H Total Protein 6.7 G/DL (6.4-8.2) Albumin 3.2 G/DL (3.4-5.0) L Globulin 3.5 g/dL Albumin/Globulin Ratio 0.9 (1.0-2.7) L EKG Diagnostic Results Rate: normal Rhythm: NSR ST Segments: no acute changes ASA given to the pt in ED: No Rhythm Strip Diag. Results EP Interpretation: yes Rhythm: NSR, no PVC's, no ectopy Chest X-Ray Diagnostic Results Chest X-Ray Diagnostic Results : Chest X-Ray Ordered: Yes # of Views/Limited/Complete: 1 View Indication: Chest Pain EP Interpretation: Yes Interpretation: no consolidation, no effusion, no pneumothorax, no acute cardiopulmonary disease Impression: No acute disease Electronically Signed by: Electronically signed by Stephen Win MD Last Vital Signs Date Time Temp Pulse Resp B/P (MAP) Pulse Ox O2 Delivery O2 Flow Rate FiO2 09/23/19 23:37 98.4 90 20 162/89 (113) 99 Room Air Status: improved Disposition: SHORT-TERM HOSP Condition: Serious Referrals: [facility],REFERRING (PCP) Stephen Win MD Sep 24, 2019 00:24
[2019-09-24 00:42] LABS: HEMATOCRIT 35.9 % (37.0-47.0); HEMOGLOBIN 11.3 G/DL (12.0-16.0); LYMPHOCYTES % (AUTO) 8.4 % (20.0-45.0); MEAN CORPUSCULAR VOLUME 82 FL (80-99); MONOCYTES % (AUTO) 8.4 % (1.0-10.0); NEUTROPHILS % (AUTO) 81.2 % (45.0-75.0); PLATELET COUNT 276 K/UL (150-450); RED BLOOD COUNT 4.38 M/UL (4.20-5.40); RED CELL DISTRIBUTION WIDTH 18.7 % (11.6-14.8); WHITE BLOOD COUNT 14.8 K/UL (4.8-10.8)
[2019-09-24 00:56] LABS: ANION GAP 8 mmol/L (5-15); BLOOD UREA NITROGEN 42 mg/dL (7-18); CALCIUM 9.3 MG/DL (8.5-10.1); CARBON DIOXIDE 25 MMOL/L (21-32); CHLORIDE 106 MMOL/L (98-107); CREATININE 0.9 MG/DL (0.55-1.30); POTASSIUM 4.3 MMOL/L (3.5-5.1); SODIUM 139 MMOL/L (136-145)
[2019-09-24 01:00] VITALS: BP 139/67
[2019-09-24 01:08] LABS: APPEARANCE,URINE CLEAR; BILIRUBIN, URINE NEGATIVE (NEGATIVE); COLOR,URINE PALE YELLOW; GLUCOSE, URINE (UA) NEGATIVE (NEGATIVE); KETONES,URINE NEGATIVE (NEGATIVE); LEUKOCYTE ESTERASE ,URINE NEGATIVE (NEGATIVE); NITRITE,URINE NEGATIVE (NEGATIVE); PH,URINE 6 (4.5-8.0); PROTEIN,URINE NEGATIVE (NEGATIVE); UROBILINOGEN,URINE NORMAL MG/DL (0.0-1.0)
[2019-09-24 01:10] LABS: ALANINE AMINOTRANSFERASE 50 U/L (12-78); ALBUMIN 3.2 G/DL (3.4-5.0); ALBUMIN/GLOBULIN RATIO 0.9 (1.0-2.7); ALKALINE PHOSPHATASE 105 U/L (46-116); ASPARTATE AMINO TRANSFERASE 27 U/L (15-37); BILIRUBIN,TOTAL 0.2 MG/DL (0.2-1.0)
[2019-09-24 02:35] VITALS: BP 141/74
[2019-09-24 03:00] VITALS: BP 141/74
--- NOTE | 2019-09-24 10:00 | Diagnostic Imaging Report ---
Procedure: XRAY Chest 1v Reason for study: Reason For Exam: SOB Comparison films: 09/18/2019. FINDINGS: A single one view chest is obtained. Vascularity is normal. There is improved aeration of both lungs with decreased hazy peripheral densities in the upper lungs. No acute alveolar process noted presently. Cardiac and mediastinal silhouette are within normal limits. CP angles are sharp. The bony thorax appear unremarkable. IMPRESSION: NO ACUTE CARDIOPULMONARY DISEASE.
== END 2019-09-24 03:00 | disposition short-term general hospital (02) ==
LOC: EDBD 23:39 → EMR 23:51
DX: J44.9 Chronic obstructive pulmonary disease, unspecified (principal); M32.9 Systemic lupus erythematosus, unspecified; Z88.0 Allergy status to penicillin; Z86.73 Personal history of transient ischemic attack (TIA), and cerebral infarction without residual deficits; Z88.6 Allergy status to analgesic agent; Z88.8 Allergy status to other drugs, medicaments and biological substances; D72.829 Elevated white blood cell count, unspecified
CPT/HCPCS: 36415; 71045; 80053; 81003; 83605; 83880; 84484; 85025; 87040; 93005; 94640; 96374; 96375; 99284; J2270; J2930

== ENCOUNTER → 2019-10-05 | Emergency (ER) | payer MEDICARE, OTHER ==
[~2019-10-05] VITALS: Ht 170.2 cm; Wt 54.4 kg
[~2019-10-05] MED LIST changes: +D5 1/2NS 1,000 ML IV SCH; +Docusate 100mg cap ORAL SCH; +Gadavist 7.5mMol/7.5ml vial IV PRN; +HYDROmorphone 1mg/ml Carpuject IVP ONE; +Milk of Magnesia 30ml Ud ORAL PRN; +Morphine Sulfate 2mg/ml Inj(IV/IM USE ONLY) IVP PRN; +Morphine Sulfate 4mg/ml Inj (IV USE ONLY) IVP PRN; +Mylanta II UD 30ml ORAL PRN
--- NOTE | 2019-10-05 06:49 | Emergency Room Report ---
History of Present Illness General Chief Complaint: Abdominal Pain Source: Patient, EMS Present Illness HPI Patient is a 68-year-old female past medical history of lupus brought in by EMS from home for abdominal pain. Patient complains of periumbilical pain for 2 days. She reports associated nausea but denies any vomiting. She denies any diarrhea. She denies any dysuria or hematuria. Patient denies any fever or chills. She denies any chest pain or shortness of breath. Patient states that she has had 5 prior abdominal surgeries. She states that Dilaudid helps with her pain. Allergies: Coded Allergies: KETOROLAC TROMETHAMINE (Verified Allergy, Severe, Anaphylaxis, 10/22/18) PENICILLINS (Verified Allergy, Severe, Anaphylaxis, 10/22/18) TETRACYCLINE (Verified Allergy, Severe, Anaphylaxis, 10/22/18) HALOPERIDOL LACTATE (Verified Allergy, Intermediate, Anaphylaxis, 10/22/18) ERYTHROMYCIN BASE (Verified Allergy, Mild, 10/22/18) AMPICILLIN (Verified Allergy, Unknown, 10/22/18) ASPIRIN (Verified Allergy, Unknown, 10/22/18) AZITHROMYCIN (Unverified Allergy, Unknown, 04/17/19) IBUPROFEN (Verified Allergy, Unknown, 10/22/18) NAPROXEN (Verified Allergy, Unknown, 10/22/18) Uncoded Allergies: AMPICILLINS (Allergy, Unknown, 09/18/19) PENICILLIN (Allergy, Unknown, 09/08/19) COVID-19 Screening Contact w/high risk pt: No Recent Travel to affected area: No Experienced COVID-19 symptoms?: No COVID-19 symptoms experienced: Shortness of Breath, Cough COVID-19 Testing performed FLOORHAND: No Patient History Reviewed Nursing Documentation: PMH: Agreed; PSxH: Agreed Nursing Documentation-PMH Hx Cardiac Problems: Yes Hx Hypertension: No Hx Pacemaker: No Hx Asthma: Yes Hx COPD: Yes Hx Diabetes: No Hx Cancer: No Hx Gastrointestinal Problems: No Hx Dialysis: No Hx Neurological Problems: Yes - LUPUS Hx Cerebrovascular Accident: Yes - stroke Hx Seizures: No Hx Weakness: Yes Hx Neurologic Surgery: No Hx Brain Shunt: No Review of Systems All Other Systems: negative except mentioned in HPI Physical Exam Vital Signs Date Time Temp Pulse Resp B/P (MAP) Pulse Ox O2 Delivery O2 Flow Rate FiO2 10/05/19 06:40 98.4 88 19 140/80 (100) 98 Room Air Sp02 EP Interpretation: reviewed, normal General Appearance: alert, GCS 15, Chronically Ill Head: normocephalic, atraumatic Eyes: bilateral eye EOMI ENT: hearing grossly normal, normal pharynx, no angioedema, normal voice Neck: full range of motion, supple/symm/no masses Respiratory: chest non-tender, lungs clear, normal breath sounds, speaking full sentences Cardiovascular #1: regular rate, rhythm, no edema Gastrointestinal: no guarding, no rebound, other - Periumbilical tenderness to palpation Rectal: deferred Genitourinary: no CVA tenderness Musculoskeletal: no calf tenderness, other - Ambulates with walker Neurologic: portfolio consultant III-XII nml as tested Psychiatric: no suicidal/homicidal ideation Skin: other - Facial vitiligo Lymphatic: no adenopathy Medical Decision Making Diagnostic Impression: Primary Impression: Appendicitis Additional Impressions: Chronic pain Superior mesenteric artery syndrome Diverticulosis ER Course Patient's labs demonstrate no significant acute abnormalities. CT of the abdomen pelvis demonstrates dilated proximal duodenum with transition between the aorta and SMA query SMA syndrome. Also demonstrates a prominent appendix at 9.8 mm with trace stranding distally. Cannot exclude early or subacute appendicitis. I have consulted who is on-call for general surgery. Patient given IV fluids, kept n.p.o., has been preop and was started on Levaquin as well as Flagyl. CT also demonstrates degenerative changes of the lumbar spine but cannot exclude discitis or osteomyelitis. MRI of the lumbar spine with contrast has been ordered and is pending. Patient seen and evaluated by general surgery in the emergency department. He will continue to consult on the patient. I spoke with Dr. Ptety who is hospitalist for [facility]. I discussed with him the CT findings specifically the SMA syndrome as well as acute appendicitis. He states that he will have their surgeon at [facility] see the patient. I also told him that she was still waiting for MRI of her lumbar spine with contrast to rule out osteomyelitis or discitis. He states that they will perform the MRI at [facility]. Laboratory Tests Test 10/05/19 07:15 10/05/19 08:00 White Blood Count 6.7 K/UL (4.8-10.8) Red Blood Count 4.49 M/UL (4.20-5.40) Hemoglobin 11.4 G/DL (12.0-16.0) L Hematocrit 37.3 % (37.0-47.0) Mean Corpuscular Volume 83 FL (80-99) Mean Corpuscular Hemoglobin 25.4 PG (27.0-31.0) L Mean Corpuscular Hemoglobin Concent 30.5 G/DL (32.0-36.0) L Red Cell Distribution Width 19.2 % (11.6-14.8) H Platelet Count 202 K/UL (150-450) Mean Platelet Volume 7.3 FL (6.5-10.1) Neutrophils (%) (Auto) 74.6 % (45.0-75.0) Lymphocytes (%) (Auto) 14.8 % (20.0-45.0) L Monocytes (%) (Auto) 7.8 % (1.0-10.0) Eosinophils (%) (Auto) 1.4 % (0.0-3.0) Basophils (%) (Auto) 1.4 % (0.0-2.0) Prothrombin Time 11.4 SEC (9.30-11.50) Prothrombin Time INR 1.0 (0.9-1.1) Activated Partial Thromboplast Time 25 SEC (23-33) Sodium Level 143 MMOL/L (136-145) Potassium Level 4.9 MMOL/L (3.5-5.1) Chloride Level 111 MMOL/L (98-107) H Carbon Dioxide Level 21 MMOL/L (21-32) Anion Gap 11 mmol/L (5-15) Blood Urea Nitrogen 16 mg/dL (7-18) Creatinine 0.7 MG/DL (0.55-1.30) Estimated Glomerular Filtration Rate > 60 mL/min (>60) Glucose Level 98 MG/DL (74-106) Calcium Level 9.5 MG/DL (8.5-10.1) Magnesium Level 2.3 MG/DL (1.8-2.4) Total Bilirubin 0.6 MG/DL (0.2-1.0) Aspartate Amino Transferase (AST) 42 U/L (15-37) H Alanine Aminotransferase (ALT) 26 U/L (12-78) Alkaline Phosphatase 89 U/L (46-116) Total Protein 7.6 G/DL (6.4-8.2) Albumin 3.1 G/DL (3.4-5.0) L Globulin 4.5 g/dL Albumin/Globulin Ratio 0.7 (1.0-2.7) L Lipase 286 U/L (73-393) Urine Color Yellow Urine Appearance Clear Urine pH 5 (4.5-8.0) Urine Specific [place] 1.020 (1.005-1.035) Urine Protein Negative (NEGATIVE) Urine Glucose (UA) Negative (NEGATIVE) Urine Ketones Negative (NEGATIVE) Urine Blood Negative (NEGATIVE) Urine Nitrite Negative (NEGATIVE) Urine Bilirubin Negative (NEGATIVE) Urine Urobilinogen Normal MG/DL (0.0-1.0) Urine Leukocyte Esterase 1+ (NEGATIVE) H Urine RBC 0-2 /HPF (0 - 2) Urine WBC 2-4 /HPF (0 - 2) Urine Squamous Epithelial Cells Few /LPF (NONE/OCC) Urine Bacteria Occasional /HPF (NONE) Urine Mucus Few /LPF (NONE/OCC) H Microbiology Date/Time Source Procedure Growth Status 10/05/19 10:15 Nasopharynx SARS-CoV-2 RdRp Gene Assay - Final Complete EKG Diagnostic Results EKG Time: 09:28 EP Interpretation: Odilia Ocasio MD Rate: normal - 76 bpm Rhythm: NSR ST Segments: no acute changes Other Impression Inverted T waves in the inferior lateral leads ASA given to the pt in ED: No Chest X-Ray Diagnostic Results Chest X-Ray Diagnostic Results : Chest X-Ray Ordered: Yes # of Views/Limited/Complete: 1 View Indication: Other - pre--op EP Interpretation: Yes Interpretation: no consolidation, no effusion, no pneumothorax, no acute cardiopulmonary disease Impression: No acute disease Electronically Signed by: Odilia Ocasio MD Last Vital Signs Date Time Temp Pulse Resp B/P (MAP) Pulse Ox O2 Delivery O2 Flow Rate FiO2 10/05/19 06:40 98.4 88 19 140/80 (100) 98 Room Air Disposition: ADMITTED INPATIENT - Transfer to [facility] Condition: Critical Physician Consult: Dr. Petty at 1130 am Additional Instructions: Please note that this report is being documented using [employer] technology. This can lead to erroneous entry secondary to incorrect interpretation by the dictating instrument. Odilia Ocasio M.D. Oct 05, 2019 06:49
[2019-10-05 07:30] VITALS: BP 139/75
[2019-10-05 07:44] LABS: BASOPHILS % (AUTO) 1.4 % (0.0-2.0); EOSINOPHILS % (AUTO) 1.4 % (0.0-3.0); HEMATOCRIT 37.3 % (37.0-47.0); HEMOGLOBIN 11.4 G/DL (12.0-16.0); LYMPHOCYTES % (AUTO) 14.8 % (20.0-45.0); MEAN CORPUSCULAR VOLUME 83 FL (80-99); MONOCYTES % (AUTO) 7.8 % (1.0-10.0); NEUTROPHILS % (AUTO) 74.6 % (45.0-75.0); PLATELET COUNT 202 K/UL (150-450); RED BLOOD COUNT 4.49 M/UL (4.20-5.40); RED CELL DISTRIBUTION WIDTH 19.2 % (11.6-14.8); WHITE BLOOD COUNT 6.7 K/UL (4.8-10.8)
[2019-10-05 07:56] LABS: ANION GAP 11 mmol/L (5-15); BLOOD UREA NITROGEN 16 mg/dL (7-18); CALCIUM 9.5 MG/DL (8.5-10.1); CARBON DIOXIDE 21 MMOL/L (21-32); CHLORIDE 111 MMOL/L (98-107); CREATININE 0.7 MG/DL (0.55-1.30); POTASSIUM 4.9 MMOL/L (3.5-5.1); SODIUM 143 MMOL/L (136-145)
[2019-10-05 08:00] LABS: ALANINE AMINOTRANSFERASE 26 U/L (12-78); ALBUMIN 3.1 G/DL (3.4-5.0); ALBUMIN/GLOBULIN RATIO 0.7 (1.0-2.7); ALKALINE PHOSPHATASE 89 U/L (46-116); ASPARTATE AMINO TRANSFERASE 42 U/L (15-37); BILIRUBIN,TOTAL 0.6 MG/DL (0.2-1.0)
[2019-10-05 08:14] LABS: APPEARANCE,URINE CLEAR; BILIRUBIN, URINE NEGATIVE (NEGATIVE); GLUCOSE, URINE (UA) NEGATIVE (NEGATIVE); KETONES,URINE NEGATIVE (NEGATIVE); LEUKOCYTE ESTERASE ,URINE 1+ (NEGATIVE); NITRITE,URINE NEGATIVE (NEGATIVE); PH,URINE 5 (4.5-8.0); PROTEIN,URINE NEGATIVE (NEGATIVE); UROBILINOGEN,URINE NORMAL MG/DL (0.0-1.0)
[2019-10-05 08:25] LABS: COLOR,URINE YELLOW
--- NOTE | 2019-10-05 09:21 | Diagnostic Imaging Report ---
EXAM: CT Abdomen and Pelvis Without Intravenous Contrast CLINICAL HISTORY: ABD PAIN TECHNIQUE: Axial computed tomography images of the abdomen and pelvis without intravenous contrast. CTDI is 4 mGy and DLP is 176.9 mGy-cm. One or more of the following dose reduction techniques were used: automated exposure control, adjustment of the mA and/or kV according to patient size, use of iterative reconstruction technique. COMPARISON: CT abdomen and pelvis 03/20/13 FINDINGS: Lung bases: Emphysema the lung bases with bibasilar lung atelectasis. ABDOMEN: Liver: Unremarkable. Gallbladder and bile ducts: Cholecystectomy. No ductal dilation. Pancreas: Dilated pancreatic duct measuring 10 mm at the pancreatic head and at 7.5 mm at the body. Spleen: Unremarkable. No splenomegaly. Adrenals: Unremarkable. No mass. Kidneys and ureters: 1.3 cm right renal low-density lesion, and1.5 cm left renal low-density lesion. No obstructing stones. No hydronephrosis. Stomach and bowel: Dilated proximal duodenum with transition between the aorta and SMA. Query SMA syndrome. Colonic diverticulosis. No mucosal thickening. PELVIS: Appendix: Prominent appendix at 9.8 mm, trace stranding distally. Bladder: Unremarkable. No stones. Reproductive: Uterus absent. ABDOMEN and PELVIS: Intraperitoneal space: Unremarkable. No free air. No significant fluid collection. Bones/joints: L3-4 severe disc space narrowing and endplate sclerotic and cystic changes, progressive since prior study. 7.5 mm anterolisthesis of L3 on L4, previously 5.5 mm. Moderate central canal narrowing and severe bilateral neural foraminal narrowing. Surgical changes of the lower lumbar spine. No acute fracture. No dislocation. Sclerotic focus bilateral acetabula. Soft tissues: Bilateral buttock calcified injection granulomata. Vasculature: Atherosclerotic vascular disease. Lymph nodes: Unremarkable. No enlarged lymph nodes. IMPRESSION: 1. Dilated proximal duodenum with transition between the aorta and SMA. Query SMA syndrome. 2. Prominent appendix at 9.8 mm, trace stranding distally. Maybe within normal limits, cannot exclude early or subacute appendicitis in the appropriate clinical setting. 3. L3-4 severe disc space narrowing and endplate sclerotic and cystic changes, progressive since prior study. 7.5 mm anterolisthesis of L3 on L4, previously 5.5 mm. Moderate central canal narrowing and severe bilateral neural foraminal narrowing. Findings likely due to degenerative changes, cannot exclude discitis/osteomyelitis. 4. Dilated pancreatic duct measuring 10 mm at the pancreatic head and at 7.5 mm at the body. Similar to prior study. 5. Cholecystectomy. 6. Colonic diverticulosis. No acute diverticulitis. 7. Emphysema the lung bases with bibasilar lung atelectasis.
[2019-10-05 09:34] VITALS: BP 129/80
--- NOTE | 2019-10-05 10:16 | Diagnostic Imaging Report ---
EXAM: XR Chest, 1 View CLINICAL HISTORY: PREOP TECHNIQUE: Frontal view of the chest. COMPARISON: Chest x-ray 09/24/19 FINDINGS: Lungs: Unremarkable. No consolidation. Pleural space: Unremarkable. No pneumothorax. Heart: Cardiomegaly. Mediastinum: Unremarkable. Bones/joints: Unremarkable. IMPRESSION: Cardiomegaly. No acute process.
--- NOTE | 2019-10-05 11:14 | Consultation ---
History of Present Illness General Date patient seen: Oct 05, 2019 Reason for Hospitalization: Abdominal Pain Present Illness HPI This is a very pleasant 60-year-old female multi-medical comorbidities and extensive abdominal surgical history which presented to the emergency department at [facility] complaining of abdominal pain. Patient states pain ongoing for approximately 2 days acute onset generalized nominal pain near the upper epigastric region with increased intensity. No significant nausea or emesis. Pain 10 out of 10 requesting narcotic pain medication IV. CT obtained in the emergency department and noted as below. Surgery called to evaluate and assist with care. Patient seen, patient evaluated, chart reviewed. In reviewing patient's history multiple medical records were reviewed and identifying ED evaluations in the past requiring narcotic pain medication but without admission. Normal flatus. No BM. Decreased appetite. Allergies: Coded Allergies: KETOROLAC TROMETHAMINE (Verified Allergy, Severe, Anaphylaxis, 10/22/18) PENICILLINS (Verified Allergy, Severe, Anaphylaxis, 10/22/18) TETRACYCLINE (Verified Allergy, Severe, Anaphylaxis, 10/22/18) HALOPERIDOL LACTATE (Verified Allergy, Intermediate, Anaphylaxis, 10/22/18) ERYTHROMYCIN BASE (Verified Allergy, Mild, 10/22/18) AMPICILLIN (Verified Allergy, Unknown, 10/22/18) ASPIRIN (Verified Allergy, Unknown, 10/22/18) AZITHROMYCIN (Unverified Allergy, Unknown, 04/17/19) IBUPROFEN (Verified Allergy, Unknown, 10/22/18) NAPROXEN (Verified Allergy, Unknown, 10/22/18) Uncoded Allergies: AMPICILLINS (Allergy, Unknown, 09/18/19) PENICILLIN (Allergy, Unknown, 09/08/19) COVID-19 Screening Contact w/high risk pt: No Recent Travel to affected area: No Experienced COVID-19 symptoms?: No COVID-19 symptoms experienced: Shortness of Breath, Cough Medication History Scheduled Albuterol Sulfate* (Albuterol Sulfate Hfa*), 2 PUFF INH Q6H Carisoprodol* (Carisoprodol*), 350 MG ORAL Q6H, (Reported) Pantoprazole* (Pantoprazole*), 40 MG ORAL DAILY Potassium Chloride* (K-Dur*), 20 MEQ ORAL DAILY Scheduled PRN Acetaminophen With Codeine (T#4) (Tylenol #4 Tab*), 1 TAB ORAL Q6H PRN Oxycodone Hcl (Oxycodone Hcl), 30 MG ORAL Q6H PRN for For Pain, (Reported) Patient History History Provided By: Patient, Medical Record, PMD Healthcare decision maker Resuscitation status Advanced Directive on File Past Medical/Surgical History Past Medical/Surgical History: (1) hypokalemia (2) chest wall contusion (3) Back pain (4) Chronic pain (5) Rash and nonspecific skin eruption (6) Rash and nonspecific skin eruption (7) Pyelonephritis (8) Acute pyelonephritis (9) Constipation (10) Sepsis (11) Lung disease, bullous (12) Bronchitis (13) Fall (14) Encounter for generalized patient complaints (15) Blurred vision (16) Headache (17) Hypertension (18) chest wall contusion (19) Lupus (20) back pain (21) Back pain (22) acute bronchitis (23) Lupus (24) Depression (25) Bronchospasm (26) Gastroenteritis (27) Arthralgia (28) Upper respiratory infection (29) COPD exacerbation (30) Pain (31) Acute abdominal pain (32) Myalgia (33) Respiratory failure (34) Pneumonia (35) Chronic hypokalemia (36) COPD bronchitis (37) Abdominal pain (38) Drug-seeking behavior (39) Total body pain (40) COVID-19 ruled out (41) SLE exacerbation (42) Lupus (43) COPD (chronic obstructive pulmonary disease) (44) Exacerbation of systemic lupus (45) Superior mesenteric artery syndrome (46) Diverticulosis (47) Appendicitis (48) Chronic pain Review of Systems Review of Symptoms General ROS: no weight loss or fever Psychological ROS: no depression or mood changes, no memory loss Ophthalmic ROS: no visual changes or eye irritation ENT ROS: no nasal congestion, hearing loss, dizziness Allergy and Immunology ROS: no allergic symptoms or urticaria Hematological and Lymphatic ROS: no swollen glands, unusual bleeding or bruising Endocrine ROS: no polyuria, polydipsia, weight changes, temperature intolerance Respiratory ROS: no cough, shortness of breath, or wheezing Cardiovascular ROS: no chest pain or dyspnea on exertion Gastrointestinal ROS: ++ abdominal pain, no bright red blood in stool. Musculoskeletal ROS: no myalgias or arthralgias Neurological ROS: no TIA or stroke symptoms Dermatological ROS: no new or changing skin lesions, rashes or pruritis Physical Exam Physical Exam General appearance: alert, cooperative, no distress, appears stated age Head: Normocephalic, without obvious abnormality, atraumatic Eyes: conjunctivae/corneas clear. PERRL, EOM's intact. Fundi benign Throat: Lips, mucosa, and tongue normal. Teeth and gums normal Neck: supple, symmetrical, trachea midline, no adenopathy, thyroid: not enlarged, symmetric, no tenderness/mass/nodules, no carotid bruit and no JVD Lungs: clear to auscultation bilaterally Heart: regular rate and rhythm, S1, S2 normal, no murmur, click, rub or gallop Abdomen: soft, discomfort-tender but no peritonitis. Bowel sounds normal. No masses, no organomegaly Extremities: extremities normal, atraumatic, no cyanosis or edema Pulses: 2+ and symmetric Skin: Skin color, texture, turgor normal. No rashes or lesions Neurologic: Grossly normal Last 24 Hour Vital Signs Date Time Temp Pulse Resp B/P (MAP) Pulse Ox O2 Delivery O2 Flow Rate FiO2 10/05/19 09:41 98.4 10/05/19 07:31 98.4 10/05/19 07:30 98.4 78 16 139/75 99 Room Air 10/05/19 07:10 88 19 Room Air 10/05/19 06:40 98.4 88 19 140/80 (100) 98 Room Air Laboratory Tests Test 10/05/19 07:15 10/05/19 08:00 White Blood Count 6.7 K/UL (4.8-10.8) Red Blood Count 4.49 M/UL (4.20-5.40) Hemoglobin 11.4 G/DL (12.0-16.0) L Hematocrit 37.3 % (37.0-47.0) Mean Corpuscular Volume 83 FL (80-99) Mean Corpuscular Hemoglobin 25.4 PG (27.0-31.0) L Mean Corpuscular Hemoglobin Concent 30.5 G/DL (32.0-36.0) L Red Cell Distribution Width 19.2 % (11.6-14.8) H Platelet Count 202 K/UL (150-450) Mean Platelet Volume 7.3 FL (6.5-10.1) Neutrophils (%) (Auto) 74.6 % (45.0-75.0) Lymphocytes (%) (Auto) 14.8 % (20.0-45.0) L Monocytes (%) (Auto) 7.8 % (1.0-10.0) Eosinophils (%) (Auto) 1.4 % (0.0-3.0) Basophils (%) (Auto) 1.4 % (0.0-2.0) Prothrombin Time 11.4 SEC (9.30-11.50) Prothromb Time International Ratio 1.0 (0.9-1.1) Activated Partial Thromboplast Time 25 SEC (23-33) Sodium Level 143 MMOL/L (136-145) Potassium Level 4.9 MMOL/L (3.5-5.1) Chloride Level 111 MMOL/L (98-107) H Carbon Dioxide Level 21 MMOL/L (21-32) Anion Gap 11 mmol/L (5-15) Blood Urea Nitrogen 16 mg/dL (7-18) Creatinine 0.7 MG/DL (0.55-1.30) Estimat Glomerular Filtration Rate > 60 mL/min (>60) Glucose Level 98 MG/DL (74-106) Calcium Level 9.5 MG/DL (8.5-10.1) Magnesium Level 2.3 MG/DL (1.8-2.4) Total Bilirubin 0.6 MG/DL (0.2-1.0) Aspartate Amino Transf (AST/SGOT) 42 U/L (15-37) H Alanine Aminotransferase (ALT/SGPT) 26 U/L (12-78) Alkaline Phosphatase 89 U/L (46-116) Total Protein 7.6 G/DL (6.4-8.2) Albumin 3.1 G/DL (3.4-5.0) L Globulin 4.5 g/dL Albumin/Globulin Ratio 0.7 (1.0-2.7) L Lipase 286 U/L (73-393) Urine Color Yellow Urine Appearance Clear Urine pH 5 (4.5-8.0) Urine Specific [place] 1.020 (1.005-1.035) Urine Protein Negative (NEGATIVE) Urine Glucose (UA) Negative (NEGATIVE) Urine Ketones Negative (NEGATIVE) Urine Blood Negative (NEGATIVE) Urine Nitrite Negative (NEGATIVE) Urine Bilirubin Negative (NEGATIVE) Urine Urobilinogen Normal MG/DL (0.0-1.0) Urine Leukocyte Esterase 1+ (NEGATIVE) H Urine RBC 0-2 /HPF (0 - 2) Urine WBC 2-4 /HPF (0 - 2) Urine Squamous Epithelial Cells Few /LPF (NONE/OCC) Urine Bacteria Occasional /HPF (NONE) Urine Mucus Few /LPF (NONE/OCC) H Microbiology Date/Time Source Procedure Growth Status 10/05/19 10:15 Nasopharynx SARS-CoV-2 RdRp Gene Assay - Final Complete Height (Feet): 5 Height (Inches): 7.00 Weight (Pounds): 120 Medications Current Medications Medications (Trade) Dose Ordered Sig/Dom Route PRN Reason Start Time Stop Time Status Last Admin Dose Admin Gadobutrol (Gadavist) 7.5 mmol NOW PRN IV Radiology Procedure 10/05/19 09:30 10/09/19 09:27 Assessment/Plan Problem List: (1) Superior mesenteric artery syndrome Assessment & Plan: patient with acute abd pain duration 2 days hx of narcotic pain medication possible dependancy CT reviewed abd exam with discomfort but no peritonitis. does exaggerate exam a bit noted recommend upper GI swallow study okay for liquids if tolerated iv fluids pain control will follow with recs as exam results become available thank you Liver: Unremarkable. Gallbladder and bile ducts: Cholecystectomy. No ductal dilation. Pancreas: Dilated pancreatic duct measuring 10 mm at the pancreatic head and at 7.5 mm at the body. Spleen: Unremarkable. No splenomegaly. Adrenals: Unremarkable. No mass. Kidneys and ureters: 1.3 cm right renal low-density lesion, and1.5 cm left renal low-density lesion. No obstructing stones. No hydronephrosis. Stomach and bowel: Dilated proximal duodenum with transition between the aorta and SMA. Query SMA syndrome. Colonic diverticulosis. No mucosal thickening. PELVIS: Appendix: Prominent appendix at 9.8 mm, trace stranding distally. Bladder: Unremarkable. No stones. Reproductive: Uterus absent. ABDOMEN and PELVIS: Intraperitoneal space: Unremarkable. No free air. No significant fluid collection. Bones/joints: L3-4 severe disc space narrowing and endplate sclerotic and cystic changes, progressive since prior study. 7.5 mm anterolisthesis of L3 on L4, previously 5.5 mm. Moderate central canal narrowing and severe bilateral neural foraminal narrowing. Surgical changes of the lower lumbar spine. No acute fracture. No dislocation. Sclerotic focus bilateral acetabula. Soft tissues: Bilateral buttock calcified injection granulomata. Vasculature: Atherosclerotic vascular disease. Lymph nodes: Unremarkable. No enlarged lymph nodes. IMPRESSION: 1. Dilated proximal duodenum with transition between the aorta and SMA. Query SMA syndrome. 2. Prominent appendix at 9.8 mm, trace stranding distally. Maybe within normal limits, cannot exclude early or subacute appendicitis in the appropriate clinical setting. 3. L3-4 severe disc space narrowing and endplate sclerotic and cystic changes, progressive since prior study. 7.5 mm anterolisthesis of L3 on L4, previously 5.5 mm. Moderate central canal narrowing and severe bilateral neural foraminal narrowing. Findings likely due to degenerative changes, cannot exclude discitis/osteomyelitis. 4. Dilated pancreatic duct measuring 10 mm at the pancreatic head and at 7.5 mm at the body. Similar to prior study. 5. Cholecystectomy. 6. Colonic diverticulosis. No acute diverticulitis. 7. Emphysema the lung bases with bibasilar lung atelectasis. ICD Codes: K55.1 - Chronic vascular disorders of intestine SNOMED: 356587297 (2) Diverticulosis ICD Codes: K57.90 - Diverticulosis of intestine, part unspecified, without perforation or abscess without bleeding SNOMED: 305621391 (3) Appendicitis ICD Codes: K37 - Unspecified appendicitis SNOMED: 66738478 (4) Chronic pain ICD Codes: G89.29 - Other chronic pain SNOMED: 00668516 (5) Upper respiratory infection (6) COPD (chronic obstructive pulmonary disease) ICD Codes: J44.9 - Chronic obstructive pulmonary disease, unspecified SNOMED: 75091725 (7) Constipation ICD Codes: K59.00 - Constipation, unspecified SNOMED: 42488148 (8) Chronic hypokalemia ICD Codes: E87.6 - Hypokalemia SNOMED: 83174931 (9) Acute pyelonephritis ICD Codes: N10 - Acute tubulo-interstitial nephritis SNOMED: 45630281 (10) Myalgia ICD Codes: M79.10 - Myalgia, unspecified site SNOMED: 01699620 (11) Arthralgia ICD Codes: M25.50 - Pain in unspecified joint SNOMED: 08762062 (12) Acute abdominal pain ICD Codes: R10.9 - Unspecified abdominal pain SNOMED: 896854193 (13) Blurred vision ICD Codes: H53.8 - Other visual disturbances SNOMED: 199824580 (14) Back pain ICD Codes: M54.9 - Dorsalgia, unspecified SNOMED: 814929485 (15) Back pain ICD Codes: M54.9 - Dorsalgia, unspecified SNOMED: 774217731 (16) Bronchospasm ICD Codes: J98.01 - Acute bronchospasm SNOMED: 5586078 (17) Depression ICD Codes: F32.9 - Major depressive disorder, single episode, unspecified SNOMED: 12741685 (18) Gastroenteritis ICD Codes: K52.9 - Noninfective gastroenteritis and colitis, unspecified SNOMED: 05878088 (19) Headache ICD Codes: R51 - Headache SNOMED: 96270759 (20) Pyelonephritis ICD Codes: N12 - Tubulo-interstitial nephritis, not specified as acute or chronic SNOMED: 50978641 (21) Respiratory failure ICD Codes: J96.90 - Respiratory failure, unspecified, unspecified whether with hypoxia or hypercapnia SNOMED: 554335154 (22) Sepsis ICD Codes: A41.9 - Sepsis, unspecified organism SNOMED: 12618352 (23) Abdominal pain ICD Codes: R10.9 - Unspecified abdominal pain SNOMED: 58432277 (24) Bronchitis ICD Codes: J40 - Bronchitis, not specified as acute or chronic SNOMED: 51547851 (25) Hypertension ICD Codes: I10 - Essential (primary) hypertension SNOMED: 08234473 (26) Pneumonia ICD Codes: J18.9 - Pneumonia, unspecified organism SNOMED: 409760348 (27) Fall ICD Codes: W19.XXXA - Unspecified fall, initial encounter SNOMED: 1664264 (28) Rash and nonspecific skin eruption ICD Codes: R21 - Rash and other nonspecific skin eruption SNOMED: 962065710 (29) Rash and nonspecific skin eruption ICD Codes: R21 - Rash and other nonspecific skin eruption SNOMED: 648245916 (30) Chronic pain ICD Codes: G89.29 - Other chronic pain SNOMED: 95521742 (31) Lupus ICD Codes: M32.9 - Systemic lupus erythematosus, unspecified SNOMED: 10604143 (32) Pain ICD Codes: R52 - Pain, unspecified SNOMED: 17328374 (33) Drug-seeking behavior ICD Codes: Z72.89 - Other problems related to lifestyle SNOMED: 010725521 (34) COPD exacerbation ICD Codes: J44.1 - Chronic obstructive pulmonary disease with (acute) exacerbation SNOMED: 447572589 (35) Lung disease, bullous ICD Codes: J43.9 - Emphysema, unspecified SNOMED: 240673429 (36) COPD bronchitis ICD Codes: J44.9 - Chronic obstructive pulmonary disease, unspecified SNOMED: 329719585 (37) Total body pain ICD Codes: R52 - Pain, unspecified SNOMED: 793560420 (38) Exacerbation of systemic lupus ICD Codes: M32.9 - Systemic lupus erythematosus, unspecified SNOMED: 66715706, 315667493 (39) SLE exacerbation ICD Codes: M32.9 - Systemic lupus erythematosus, unspecified SNOMED: 56876837, 572565739 (40) Encounter for generalized patient complaints ICD Codes: Z00.8 - Encounter for other general examination SNOMED: 732801041 (41) COVID-19 ruled out ICD Codes: Z03.818 - Encounter for observation for suspected exposure to other biological agents ruled out SNOMED: 638202268, 734267204 (42) Lupus (43) Lupus (44) acute bronchitis (45) back pain (46) chest wall contusion (47) chest wall contusion (48) hypokalemia Caesar Hope Oct 05, 2019 11:13
[2019-10-05 11:35] VITALS: BP 134/72
[2019-10-05 12:44] VITALS: BP 137/76
== END | disposition short-term general hospital (02) ==
LOC: EDUNIT# 06:35 → EDBD 06:36 → EMR 06:57 → EDBEDREQ 11:11
DX: K37 Unspecified appendicitis (principal); G89.29 Other chronic pain; K55.1 Chronic vascular disorders of intestine; K57.90 Diverticulosis of intestine, part unspecified, without perforation or abscess without bleeding; J44.9 Chronic obstructive pulmonary disease, unspecified; Z86.73 Personal history of transient ischemic attack (TIA), and cerebral infarction without residual deficits; Z88.0 Allergy status to penicillin; Z88.6 Allergy status to analgesic agent; Z88.8 Allergy status to other drugs, medicaments and biological substances; I51.7 Cardiomegaly
CPT/HCPCS: 36415; 71045; 74176; 80053; 81003; 83690; 83735; 85025; 85610; 85730; 93005; 96361; 96374; 96375; 96376; 99285; J1170; J1956; J2405; J7030; J7040; U0002

== ENCOUNTER 2019-10-15 05:41 | Emergency (ER) | payer MEDICARE, OTHER ==
[~2019-10-15] VITALS: Ht 167.6 cm; Wt 63.5 kg
[~2019-10-15 05:41] MED LIST changes: -D5 1/2NS 1,000 ML IV SCH; -Docusate 100mg cap ORAL SCH; -Gadavist 7.5mMol/7.5ml vial IV PRN; -HYDROmorphone 1mg/ml Carpuject IVP ONE; -Milk of Magnesia 30ml Ud ORAL PRN; -Morphine Sulfate 2mg/ml Inj(IV/IM USE ONLY) IVP PRN; -Morphine Sulfate 4mg/ml Inj (IV USE ONLY) IVP PRN; -Mylanta II UD 30ml ORAL PRN
[2019-10-15] MEDS ORDERED: HYDROmorphone 1mg/ml Carpuject IVP ONE (06:15)
--- NOTE | 2019-10-15 06:31 | Emergency Room Report ---
History of Present Illness General Chief Complaint: Pain Source: Patient Present Illness HPI Patient is a 69-year-old female past medical history of lupus well-known to this emergency department who presents to the ER complaining of joint pain. Patient states that is been present for the past several days. She states that Dilaudid makes it better. She denies any fever or chills. She denies any chest pain or shortness of breath. She denies any abdominal pain, nausea or vomiting. Patient was brought in by EMS. Allergies: Coded Allergies: KETOROLAC TROMETHAMINE (Verified Allergy, Severe, Anaphylaxis, 10/22/18) PENICILLINS (Verified Allergy, Severe, Anaphylaxis, 10/22/18) TETRACYCLINE (Verified Allergy, Severe, Anaphylaxis, 10/22/18) HALOPERIDOL LACTATE (Verified Allergy, Intermediate, Anaphylaxis, 10/22/18) ERYTHROMYCIN BASE (Verified Allergy, Mild, 10/22/18) AMPICILLIN (Verified Allergy, Unknown, 10/22/18) ASPIRIN (Verified Allergy, Unknown, 10/22/18) AZITHROMYCIN (Unverified Allergy, Unknown, 04/17/19) IBUPROFEN (Verified Allergy, Unknown, 10/22/18) NAPROXEN (Verified Allergy, Unknown, 10/22/18) Uncoded Allergies: AMPICILLINS (Allergy, Unknown, 09/18/19) PENICILLIN (Allergy, Unknown, 09/08/19) COVID-19 Screening Contact w/high risk pt: No Recent Travel to affected area: No Experienced COVID-19 symptoms?: No COVID-19 symptoms experienced: Shortness of Breath, Cough COVID-19 Testing performed [employer]: No Patient History Reviewed Nursing Documentation: PMH: Agreed; PSxH: Agreed Nursing Documentation-PMH Hx Cardiac Problems: Yes Hx Hypertension: No Hx Pacemaker: No Hx Asthma: Yes Hx COPD: Yes Hx Diabetes: No Hx Cancer: No Hx Gastrointestinal Problems: No Hx Dialysis: No Hx Neurological Problems: Yes - LUPUS Hx Cerebrovascular Accident: Yes - stroke Hx Seizures: No Hx Weakness: Yes Hx Neurologic Surgery: No Hx Brain Shunt: No Review of Systems All Other Systems: negative except mentioned in HPI Physical Exam Vital Signs Date Time Temp Pulse Resp B/P (MAP) Pulse Ox O2 Delivery O2 Flow Rate FiO2 10/15/19 05:42 98.4 78 16 132/88 (103) 98 Room Air Sp02 EP Interpretation: reviewed, normal General Appearance: no apparent distress, alert, GCS 15, non-toxic, Chronically Ill Head: normocephalic, atraumatic Eyes: bilateral eye normal inspection, bilateral eye PERRL ENT: hearing grossly normal, normal pharynx, no angioedema, normal voice, other - Vitiligo to her face Neck: full range of motion, supple/symm/no masses Respiratory: chest non-tender, lungs clear, normal breath sounds, speaking full sentences Cardiovascular #1: regular rate, rhythm, no edema Gastrointestinal: normal bowel sounds, non tender, soft, non-distended, no guarding, no rebound Rectal: deferred Genitourinary: no CVA tenderness Musculoskeletal: normal range of motion Neurologic: senior ui developer III-XII nml as tested, oriented x3 Psychiatric: no suicidal/homicidal ideation Lymphatic: no adenopathy Medical Decision Making Diagnostic Impression: Primary Impression: Chronic pain ER Course Patient well-known to this emergency department. Patient declining any blood work. Her vital signs are stable. Her UA demonstrates no evidence for infection. Patient given intramuscular Dilaudid which she states relieved her pain. After discussing risks and benefits of further diagnostics, treatment plans, as well as indications for and risks of admission, the patient is agreeable to being discharged home. I have explained that their evaluation and treatment in the emergency department today is an important step towards them achieving better health but that their evaluation today is not intended to replace further evaluation and treatment by a physician in their local clinic. I have explained that while the current findings suggest no immediate life threatening emergency they will require further evaluation and treatment by a physician of their choice in their area. They understand that it will be necessary for them to review the final reports of their ED visit with their clinic physician. We have reviewed indications for return to the Emergency Department. I have explained that additional time may need to pass and/or additional testing as an outpatient may be necessary before a definitive diagnosis can be made. They tell me they are willing to follow up as instructed within the timeframe I recommend. They appear to understand what we discussed. Additionally they understand that if they are unable to be seen by an outpatient physician they are welcome, and in fact should, return to the Emergency Department for a repeat evaluation. The patient is stable at time of discharge. Laboratory Tests Test 10/15/19 06:23 Urine Color Pale yellow Urine Appearance Clear Urine pH 7.0 (4.5-8.0) Urine Specific [place] 1.010 (1.005-1.035) Urine Protein Negative (NEGATIVE) Urine Glucose (UA) Negative (NEGATIVE) Urine Ketones Negative (NEGATIVE) Urine Blood Negative (NEGATIVE) Urine Nitrite Negative (NEGATIVE) Urine Bilirubin Negative (NEGATIVE) Urine Urobilinogen Normal MG/DL (0.0-1.0) Urine Leukocyte Esterase 1+ (NEGATIVE) H Urine RBC 0-2 /HPF (0 - 2) Urine WBC 2-4 /HPF (0 - 2) Urine Squamous Epithelial Cells Few /LPF (NONE/OCC) Urine Bacteria Few /HPF (NONE) Last Vital Signs Date Time Temp Pulse Resp B/P (MAP) Pulse Ox O2 Delivery O2 Flow Rate FiO2 10/15/19 05:42 98.4 78 16 132/88 (103) 98 Room Air Disposition: HOME, SELF-CARE Condition: Stable Referrals: NOT CHOSEN IPA/MD,REFERRING (PCP) Additional Instructions: The patient was provided with discharge instructions, notified to follow-up with a primary care doctor and or specialist in the next 24-48 hours, and to return to the ED if they have worsening of their symptoms. Please note that this report is being documented using [employer] technology. This can lead to erroneous entry secondary to incorrect interpretation by the dictating instrument. Odilia Ocasio M.D. Oct 15, 2019 06:31
[2019-10-15 06:35] VITALS: BP 132/88
--- NOTE | 2019-10-15 06:35 | NUR ---
ED Nurse Note: Pt brought into ED by MAIKEL Whitehead from home for c/o 10/10 generalized body pain. She denies any trauma or injury. Pt is aaox4, breathing is normal and unlabored. Pt is ambulatory with walker. No cough, SOB or fever noted.
--- NOTE | 2019-10-15 06:40 | NUR ---
ED Nurse Note: Pt refused IV insertion due to her being a hard stick. Pt is requesting pain medicine. ERMD made aware and is ok with no blood draw or IV.
[2019-10-15 06:49] LABS: APPEARANCE,URINE CLEAR; COLOR,URINE PALE YELLOW
[2019-10-15 06:50] LABS: BILIRUBIN, URINE NEGATIVE (NEGATIVE); GLUCOSE, URINE (UA) NEGATIVE (NEGATIVE); KETONES,URINE NEGATIVE (NEGATIVE); LEUKOCYTE ESTERASE ,URINE 1+ (NEGATIVE); NITRITE,URINE NEGATIVE (NEGATIVE); PROTEIN,URINE NEGATIVE (NEGATIVE); UROBILINOGEN,URINE NORMAL MG/DL (0.0-1.0)
[2019-10-15 07:10] VITALS: BP 128/87
--- NOTE | 2019-10-15 07:10 | NUR ---
ER DISCHARGE NOTE: Patient is cleared to be discharged per ERMD, pt is aox4, on room air, with stable vital signs. pt was given dc instructions, pt was able to verbalize understanding, pt id band removed. pt is able to ambulate with walker. pt took all belongings. pt assisted to waiting room by tech.
== END 2019-10-15 07:10 | disposition home or self-care (01) ==
LOC: EDBD 05:41 → EMR 06:08
DX: G89.29 Other chronic pain (principal); J44.9 Chronic obstructive pulmonary disease, unspecified; Z86.73 Personal history of transient ischemic attack (TIA), and cerebral infarction without residual deficits; Z88.0 Allergy status to penicillin; Z88.6 Allergy status to analgesic agent; L80 Vitiligo
CPT/HCPCS: 81003; 96372; 99283; J1170

== ENCOUNTER 2019-10-15 11:41 | Emergency (ER) | payer MEDICARE, OTHER ==
[~2019-10-15] VITALS: Ht 170.2 cm; Wt 54.4 kg
[2019-10-15 12:00] VITALS: BP 154/82
--- NOTE | 2019-10-15 12:00 | NUR ---
ED Nurse Note: Pt BIBA for general body pain 10/06 glaucoma. Pt is alert and orientedx4, ambulatory. Pt has been seen by ERMD. Pt is set up on monitor.
--- NOTE | 2019-10-15 12:16 | Emergency Room Report ---
History of Present Illness General Chief Complaint: Pain Source: Patient Present Illness HPI Patient is a 69-year-old female with history of chronic pain, glaucoma and blindness and lupus who presents to the ER requesting pain medicine. Patient states that she was here this morning for generalized body aches and now returns for a little bit more pain medicine. She denies any chest pain or shortness of breath. She denies any abdominal pain nausea or vomiting. Patient denies any headache. Patient states that her vision is chronically blurry. And that it is unchanged. Patient states that she does not want a blood work and just wants a shot of pain medicine to get her through the day. Allergies: Coded Allergies: KETOROLAC TROMETHAMINE (Verified Allergy, Severe, Anaphylaxis, 10/22/18) PENICILLINS (Verified Allergy, Severe, Anaphylaxis, 10/22/18) TETRACYCLINE (Verified Allergy, Severe, Anaphylaxis, 10/22/18) HALOPERIDOL LACTATE (Verified Allergy, Intermediate, Anaphylaxis, 10/22/18) ERYTHROMYCIN BASE (Verified Allergy, Mild, 10/22/18) AMPICILLIN (Verified Allergy, Unknown, 10/22/18) ASPIRIN (Verified Allergy, Unknown, 10/22/18) AZITHROMYCIN (Unverified Allergy, Unknown, 04/17/19) IBUPROFEN (Verified Allergy, Unknown, 10/22/18) NAPROXEN (Verified Allergy, Unknown, 10/22/18) Uncoded Allergies: AMPICILLINS (Allergy, Unknown, 09/18/19) PENICILLIN (Allergy, Unknown, 09/08/19) COVID-19 Screening Contact w/high risk pt: No Recent Travel to affected area: No Experienced COVID-19 symptoms?: No COVID-19 symptoms experienced: Shortness of Breath, Cough COVID-19 Testing performed LEATHER SHAVER: Yes - 10/05/19 COVID-19 Screening: Negative COVID-19 COVID-19 Testing Source: nasal Patient History Reviewed Nursing Documentation: PMH: Agreed; PSxH: Agreed Nursing Documentation-PMH Past Medical History: No History, Except For Hx Cardiac Problems: Yes Hx Hypertension: No Hx Pacemaker: No Hx Asthma: Yes Hx COPD: Yes Hx Diabetes: No Hx Cancer: No Hx Gastrointestinal Problems: No Hx Dialysis: No Hx Neurological Problems: Yes - LUPUS Hx Cerebrovascular Accident: Yes - stroke Hx Seizures: No Hx Weakness: Yes Hx Neurologic Surgery: No Hx Brain Shunt: No Review of Systems All Other Systems: negative except mentioned in HPI Physical Exam Vital Signs Date Time Temp Pulse Resp B/P (MAP) Pulse Ox O2 Delivery O2 Flow Rate FiO2 10/15/19 11:44 98.1 74 22 161/84 (109) 95 Room Air Sp02 EP Interpretation: reviewed, normal General Appearance: no apparent distress, alert, GCS 15, non-toxic, Chronically Ill Head: normocephalic, atraumatic ENT: hearing grossly normal, normal pharynx, no angioedema, normal voice, other - Vitiligo on face Neck: full range of motion, supple/symm/no masses Respiratory: chest non-tender, lungs clear, normal breath sounds, speaking full sentences Cardiovascular #1: regular rate, rhythm, no edema Gastrointestinal: normal bowel sounds, non tender, soft, non-distended, no guarding, no rebound Rectal: deferred Musculoskeletal: normal range of motion, no calf tenderness Neurologic: hand tier III-XII nml as tested, oriented x3 Psychiatric: no suicidal/homicidal ideation Skin: no rash Lymphatic: no adenopathy Medical Decision Making Diagnostic Impression: Primary Impression: Chronic pain ER Course Patient presents for chronic pain. Patient exhibits drug-seeking behavior. Patient given 1 dose of intramuscular pain medicine. Patient declining any lab work. After discussing risks and benefits of further diagnostics, treatment plans, as well as indications for and risks of admission, the patient is agreeable to being discharged home. I have explained that their evaluation and treatment in the emergency department today is an important step towards them achieving better health but that their evaluation today is not intended to replace further evaluation and treatment by a physician in their local clinic. I have explained that while the current findings suggest no immediate life threatening emergency they will require further evaluation and treatment by a physician of their choice in their area. They understand that it will be necessary for them to review the final reports of their ED visit with their clinic physician. We have reviewed indications for return to the Emergency Department. I have explained that additional time may need to pass and/or additional testing as an outpatient may be necessary before a definitive diagnosis can be made. They tell me they are willing to follow up as instructed within the timeframe I recommend. They appear to understand what we discussed. Additionally they understand that if they are unable to be seen by an outpatient physician they are welcome, and in fact should, return to the Emergency Department for a repeat evaluation. The patient is stable at time of discharge. Last Vital Signs Date Time Temp Pulse Resp B/P (MAP) Pulse Ox O2 Delivery O2 Flow Rate FiO2 10/15/19 11:44 98.1 74 22 161/84 (109) 95 Room Air Disposition: HOME, SELF-CARE Condition: Stable Referrals: [facility] Patient Instructions: Chronic Pain Additional Instructions: The patient was provided with discharge instructions, notified to follow-up with a primary care doctor and or specialist in the next 24-48 hours, and to return to the ED if they have worsening of their symptoms. Please note that this report is being documented using [employer] technology. This can lead to erroneous entry secondary to incorrect interpretation by the dictating instrument. Odilia Ocasio M.D. Oct 15, 2019 12:16
[2019-10-15 12:25] VITALS: BP 152/80
== END 2019-10-15 12:25 | disposition home or self-care (01) ==
LOC: EMR 12:05
DX: G89.29 Other chronic pain (principal); Z88.0 Allergy status to penicillin; Z88.6 Allergy status to analgesic agent; J44.9 Chronic obstructive pulmonary disease, unspecified; Z86.73 Personal history of transient ischemic attack (TIA), and cerebral infarction without residual deficits
CPT/HCPCS: 99283; J1170

== ENCOUNTER 2019-10-16 02:29 | Emergency (ER) | payer MEDICARE, OTHER ==
[~2019-10-16] VITALS: Ht 167.6 cm; Wt 59.0 kg
--- NOTE | 2019-10-16 02:35 | NUR ---
ED Nurse Note: Patient brought in by ambulance RA 68 from home with c/o headache due to glaucoma. Patient rates pain 3/10, denies visual problem and n/v. Pt denies chest pain, sob, fever and chills. Patient could ambulate with walker and alert. Placed on monitor bed
--- NOTE | 2019-10-16 02:36 | NUR ---
ED Nurse Note: ERMD at bedside
[2019-10-16 02:38] VITALS: BP 146/84
[2019-10-16] MEDS ORDERED: HYDROcodone/Acetamin 5/325 tab ORAL ONE (03:00)
--- NOTE | 2019-10-16 03:26 | Emergency Room Report ---
History of Present Illness General Chief Complaint: Headache Source: Patient Present Illness HPI 69-year-old female presents the ED complaining of headache. Brought in by EMS from home. 10 out of 10, throbbing, nonradiating. States it is due to her lupus. Patient is well-known to [facility]. Has been here multiple times for pain related complaints. Was seen here yesterday twice for chronic pain. States that she does not remember coming to this hospital from pain medication. Denies photophobia or blurry vision. Denies nausea or vomiting. Denies any neck stiffness. Denies any chest pain or shortness of breath. No other aggravating relieving factors. Denies any other associated symptoms Allergies: Coded Allergies: KETOROLAC TROMETHAMINE (Verified Allergy, Severe, Anaphylaxis, 10/22/18) PENICILLINS (Verified Allergy, Severe, Anaphylaxis, 10/22/18) TETRACYCLINE (Verified Allergy, Severe, Anaphylaxis, 10/22/18) HALOPERIDOL LACTATE (Verified Allergy, Intermediate, Anaphylaxis, 10/22/18) ERYTHROMYCIN BASE (Verified Allergy, Mild, 10/22/18) AMPICILLIN (Verified Allergy, Unknown, 10/22/18) ASPIRIN (Verified Allergy, Unknown, 10/22/18) AZITHROMYCIN (Unverified Allergy, Unknown, 04/17/19) IBUPROFEN (Verified Allergy, Unknown, 10/22/18) NAPROXEN (Verified Allergy, Unknown, 10/22/18) Uncoded Allergies: AMPICILLINS (Allergy, Unknown, 09/18/19) PENICILLIN (Allergy, Unknown, 09/08/19) COVID-19 Screening Contact w/high risk pt: No Recent Travel to affected area: No Experienced COVID-19 symptoms?: No COVID-19 symptoms experienced: Shortness of Breath, Cough COVID-19 Testing performed SENIOR TECHNICAL TRAINER: No Patient History Past Medical History: none Past Surgical History: none Pertinent Family History: none Social History: Denies: smoking, alcohol use, drug use Now: No Immunizations: UTD Reviewed Nursing Documentation: PMH: Agreed; PSxH: Agreed Nursing Documentation-PMH Hx Cardiac Problems: Yes Hx Hypertension: No Hx Pacemaker: No Hx Asthma: Yes Hx COPD: Yes Hx Diabetes: No Hx Cancer: No Hx Gastrointestinal Problems: No Hx Dialysis: No Hx Neurological Problems: Yes - LUPUS Hx Cerebrovascular Accident: Yes - stroke Hx Seizures: No Hx Weakness: Yes Hx Neurologic Surgery: No Hx Brain Shunt: No Review of Systems All Other Systems: negative except mentioned in HPI Physical Exam Vital Signs Date Time Temp Pulse Resp B/P (MAP) Pulse Ox O2 Delivery O2 Flow Rate FiO2 10/16/19 02:32 97.0 86 16 146/84 (104) 99 Room Air Sp02 EP Interpretation: reviewed, normal General Appearance: no apparent distress, alert, GCS 15, non-toxic Head: normocephalic, atraumatic Eyes: bilateral eye normal inspection, bilateral eye PERRL ENT: hearing grossly normal, normal pharynx, no angioedema, normal voice Neck: full range of motion, supple/symm/no masses Respiratory: chest non-tender, lungs clear, normal breath sounds, speaking full sentences Cardiovascular #1: regular rate, rhythm, no edema Cardiovascular #2: 2+ carotid (R), 2+ carotid (L), 2+ radial (R), 2+ radial (L) , 2+ dorsalis pedis (R), 2+ dorsalis pedis (L) Gastrointestinal: normal bowel sounds, non tender, soft, non-distended, no guarding, no rebound Rectal: deferred Genitourinary: normal inspection, no CVA tenderness Musculoskeletal: back normal, normal range of motion, gait/station normal, non- tender Neurologic: alert, motor strength/tone normal, oriented x3, sensory intact, responsive, speech normal Psychiatric: judgement/insight normal, memory normal, mood/affect normal, no suicidal/homicidal ideation Reflexes: 3+ bicep (R), 3+ bicep (L), 3+ tricep (R), 3+ tricep (L), 3+ knee (R) , 3+ knee (L) Skin: other - malar rash Lymphatic: no adenopathy Medical Decision Making Diagnostic Impression: Primary Impression: Opioid dependence Additional Impression: Chronic pain Last Vital Signs Date Time Temp Pulse Resp B/P (MAP) Pulse Ox O2 Delivery O2 Flow Rate FiO2 10/16/19 03:20 97.0 10/16/19 02:38 80 18 146/84 99 Room Air Referrals: [facility],REFERRING (PCP) Stephen Win MD Oct 16, 2019 03:26
--- NOTE | 2019-10-16 05:00 | NUR ---
ER DISCHARGE NOTE: Patient is cleared to be discharged per ERMD, pt is aox4, on room air, with stable vital signs. pt was given dc and prescription instructions, pt was able to verbalize understanding, pt id band removed. pt is able to ambulate with walker. pt took all belongings.
[2019-10-16 06:07] VITALS: BP 124/88
== END 2019-10-16 05:00 | disposition home or self-care (01) ==
LOC: EDBD 02:29 → EMR 02:45
DX: F11.20 Opioid dependence, uncomplicated (principal); G89.29 Other chronic pain; Z88.0 Allergy status to penicillin; Z88.6 Allergy status to analgesic agent; J44.9 Chronic obstructive pulmonary disease, unspecified; Z86.73 Personal history of transient ischemic attack (TIA), and cerebral infarction without residual deficits
CPT/HCPCS: 99282

== ENCOUNTER → 2019-10-17 | Emergency (ER) | payer MEDICARE, OTHER ==
[~2019-10-17] VITALS: Ht 170.2 cm; Wt 54.4 kg
--- NOTE | 2019-10-17 13:42 | Emergency Room Report ---
Physical Exam General Appearance: no apparent distress, other - Confused Head: normocephalic, atraumatic Eyes: bilateral eye PERRL, bilateral eye EOMI Neck: full range of motion Respiratory: lungs clear, no accessory muscle use, speaking full sentences Cardiovascular #1: no murmur, no rub, tachycardia Gastrointestinal: non tender, soft, no guarding Neurologic: responsive - Confused Medical Decision Making Diagnostic Impression: Primary Impression: Altered mental status Qualified Codes: R41.82 - Altered mental status, unspecified ER Course 69-year-old female history of lupus briefly seen by me as a medical screening exam, patient to be evaluated and seen by Dr. Winters. Full note to follow In short 69-year-old female history of lupus presents with altered mental status patient was found wandering the streets confused, alert and oriented to self, patient was tachycardic, differential diagnosis of altered mental status is UTI, sepsis, thyroid disease, brain bleed. Further work-up to be conducted by oncoming doctor Broad labs are ordered, sepsis work-up, patient given a liter of fluids due to tachycardia and dry mucous membranes Disposition: ADMITTED INPATIENT Condition: Stable Ranjan Trevino MD Oct 17, 2019 13:42
[2019-10-17 14:16] LABS: BASOPHILS % (AUTO) 2.7 % (0.0-2.0); EOSINOPHILS % (AUTO) 0.7 % (0.0-3.0); HEMATOCRIT 35.2 % (37.0-47.0); HEMOGLOBIN 10.6 G/DL (12.0-16.0); LYMPHOCYTES % (AUTO) 22.1 % (20.0-45.0); MEAN CORPUSCULAR VOLUME 84 FL (80-99); NEUTROPHILS % (AUTO) 62.6 % (45.0-75.0); PLATELET COUNT 254 K/UL (150-450); RED BLOOD COUNT 4.19 M/UL (4.20-5.40); RED CELL DISTRIBUTION WIDTH 18.9 % (11.6-14.8); WHITE BLOOD COUNT 5.8 K/UL (4.8-10.8)
--- NOTE | 2019-10-17 14:18 | Emergency Room Report ---
Physical Exam Vital Signs Date Time Temp Pulse Resp B/P (MAP) Pulse Ox O2 Delivery O2 Flow Rate FiO2 10/17/19 13:36 97.3 108 17 114/61 (78) 97 Room Air Medical Decision Making Diagnostic Impression: Primary Impression: Altered mental status Qualified Codes: R41.82 - Altered mental status, unspecified ER Course Assumed care of the patient from the previous provider at approximately 1400. Please refer to initial note for full history and physical exam. Briefly, 69-year-old female with prior history of lupus, hypertension presented for altered mental status. Reportedly, she was found wandering in the street not responding to questions. She has been seen at this emergency department multiple times over the past few days. She had recently been evaluated for pancreatitis appendicitis and transferred to outpatient facility but is treated nonoperative. Subsequent CT on 10/12 showed diverticulosis without diverticulitis, mild gastric wall thickening, unchanged pancreatic ductal dilatation from previous scans and other chronic findings but no other acute findings. She has then been seen here subsequently complaining of chronic pain. 1600: Patient is now more awake and alert. She has no recollection of today's events. She denies taking any extra medication intoxicant is returned within normal limits. Labs otherwise unremarkable. No acute findings on head CT. Patient states that she has been living independently but is been finding it hard to perform activities of daily living. The last thing she remembers is trying to go to the store earlier today. She will be admitted to [facility] where she is capitated according to her insurance plan. Dr. Petty accepting physician. Will arrange transport. She is in stable condition for transfer. Laboratory Tests Test 10/17/19 13:50 10/17/19 14:45 10/17/19 15:40 White Blood Count 5.8 K/UL (4.8-10.8) Red Blood Count 4.19 M/UL (4.20-5.40) L Hemoglobin 10.6 G/DL (12.0-16.0) L Hematocrit 35.2 % (37.0-47.0) L Mean Corpuscular Volume 84 FL (80-99) Mean Corpuscular Hemoglobin 25.3 PG (27.0-31.0) L Mean Corpuscular Hemoglobin Concent 30.1 G/DL (32.0-36.0) L Red Cell Distribution Width 18.9 % (11.6-14.8) H Platelet Count 254 K/UL (150-450) Mean Platelet Volume 6.4 FL (6.5-10.1) L Neutrophils (%) (Auto) 62.6 % (45.0-75.0) Lymphocytes (%) (Auto) 22.1 % (20.0-45.0) Monocytes (%) (Auto) 12.0 % (1.0-10.0) H Eosinophils (%) (Auto) 0.7 % (0.0-3.0) Basophils (%) (Auto) 2.7 % (0.0-2.0) H Sodium Level 145 MMOL/L (136-145) Potassium Level 3.6 MMOL/L (3.5-5.1) Chloride Level 110 MMOL/L (98-107) H Carbon Dioxide Level 20 MMOL/L (21-32) L Anion Gap 15 mmol/L (5-15) Blood Urea Nitrogen 11 mg/dL (7-18) Creatinine 1.3 MG/DL (0.55-1.30) Estimated Glomerular Filtration Rate 49.2 mL/min (>60) Glucose Level 153 MG/DL (74-106) H Calcium Level 9.2 MG/DL (8.5-10.1) Phosphorus Level 5.1 MG/DL (2.5-4.9) H Magnesium Level 2.0 MG/DL (1.8-2.4) Total Bilirubin 0.6 MG/DL (0.2-1.0) Aspartate Amino Transferase (AST) 23 U/L (15-37) Alanine Aminotransferase (ALT) 17 U/L (12-78) Alkaline Phosphatase 102 U/L (46-116) Total Creatine Kinase 96 U/L (26-308) Creatine Kinase MB 1.4 NG/ML (0.0-3.6) Creatine Kinase MB Relative Index 1.4 Troponin I 0.014 ng/mL (0.000-0.056) Pro-B-Type Natriuretic Peptide 1471 pg/mL (0-125) H Total Protein 8.0 G/DL (6.4-8.2) Albumin 3.7 G/DL (3.4-5.0) Globulin 4.3 g/dL Albumin/Globulin Ratio 0.9 (1.0-2.7) L Lipase 174 U/L (73-393) Thyroid Stimulating Hormone (TSH) 2.877 uiU/mL (0.358-3.740) Free Thyroxine 1.16 NG/DL (0.76-1.46) Free Triiodothyronine 3.4 pg/mL (2.3-4.2) Serum Alcohol < 3 mg/dL Urine Color Yellow Urine Appearance Slightly cloudy Urine pH 6 (4.5-8.0) Urine Specific [place] 1.015 (1.005-1.035) Urine Protein 1+ (NEGATIVE) H Urine Glucose (UA) Negative (NEGATIVE) Urine Ketones Negative (NEGATIVE) Urine Blood 5+ (NEGATIVE) H Urine Nitrite Negative (NEGATIVE) Urine Bilirubin Negative (NEGATIVE) Urine Urobilinogen Normal MG/DL (0.0-1.0) Urine Leukocyte Esterase 2+ (NEGATIVE) H Urine RBC Pending Urine WBC Pending Urine Squamous Epithelial Cells Pending Urine Bacteria Pending Urine Opiates Screen Negative (NEGATIVE) Urine Barbiturates Screen Negative (NEGATIVE) Phencyclidine (PCP) Screen Negative (NEGATIVE) Urine Amphetamines Screen Negative (NEGATIVE) Urine Benzodiazepines Screen Negative (NEGATIVE) Urine Cocaine Screen Negative (NEGATIVE) Urine Marijuana (THC) Screen Negative (NEGATIVE) Prothrombin Time Pending Prothrombin Time INR Pending Activated Partial Thromboplast Time Pending Lactic Acid Level 1.20 mmol/L (0.4-2.0) EKG Diagnostic Results EKG Time: 13:55 Rate: normal Rhythm: NSR ST Segments: no acute changes Other Impression Sinus rhythm, left axis, normal intervals, no ST segment changes Rhythm Strip Diag. Results Rhythm Strip Time: 13:55 EP Interpretation: yes Rate: 98 Rhythm: no PVC's, no ectopy Chest X-Ray Diagnostic Results Chest X-Ray Diagnostic Results : Chest X-Ray Ordered: Yes # of Views/Limited/Complete: 1 View Indication: Other - Altered mental status EP Interpretation: Yes Interpretation: no consolidation, no effusion, no pneumothorax, no acute cardiopulmonary disease Impression: No acute disease Electronically Signed by: Electronically signed by Dr. Filemon Winters CT/MRI/US Diagnostic Results CT/MRI/US Diagnostic Results : Impression IMPRESSION: Age-related volume loss. 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 There is somewhat symmetric appearing hypodensities noted in the anterior limb of the internal capsules bilaterally, unusual for microischemic changes. Question other underlying causes of deep white matter edema. Questionable sulcal effacement in the posterior left temporal lobe on axial images but not confirmed on the coronal images. Recommend MR follow-up with and without contrast. Dictated By: Jose G Mcgee MD Electronically Signed By: Jose G Mcgee MD Signed Date/Time 10/17/19 2228 CC: Ranjan Trevino MD Last Vital Signs Date Time Temp Pulse Resp B/P (MAP) Pulse Ox O2 Delivery O2 Flow Rate FiO2 10/17/19 13:36 97.3 108 17 114/61 (78) 97 Room Air Disposition: SHORT-TERM HOSP Condition: Stable Referrals: NON PHYSICIAN (PCP) Filemon Winters MD Oct 17, 2019 14:18
[2019-10-17 14:19] LABS: ANION GAP 15 mmol/L (5-15); BLOOD UREA NITROGEN 11 mg/dL (7-18); CALCIUM 9.2 MG/DL (8.5-10.1); CARBON DIOXIDE 20 MMOL/L (21-32); CHLORIDE 110 MMOL/L (98-107); CREATININE 1.3 MG/DL (0.55-1.30); POTASSIUM 3.6 MMOL/L (3.5-5.1); SODIUM 145 MMOL/L (136-145)
[2019-10-17 14:21] VITALS: BP 114/61
[2019-10-17 14:33] LABS: ALANINE AMINOTRANSFERASE 17 U/L (12-78); ALBUMIN 3.7 G/DL (3.4-5.0); ALBUMIN/GLOBULIN RATIO 0.9 (1.0-2.7); ALKALINE PHOSPHATASE 102 U/L (46-116); ASPARTATE AMINO TRANSFERASE 23 U/L (15-37); BILIRUBIN,TOTAL 0.6 MG/DL (0.2-1.0); CKMB 1.4 NG/ML (0.0-3.6); CREATINE KINASE 96 U/L (26-308); PHOSPHORUS 5.1 MG/DL (2.5-4.9)
[2019-10-17 15:31] LABS: APPEARANCE,URINE SLIGHTLY CLOUDY; BILIRUBIN, URINE NEGATIVE (NEGATIVE); GLUCOSE, URINE (UA) NEGATIVE (NEGATIVE); KETONES,URINE NEGATIVE (NEGATIVE); LEUKOCYTE ESTERASE ,URINE 2+ (NEGATIVE); NITRITE,URINE NEGATIVE (NEGATIVE); PH,URINE 6 (4.5-8.0); PROTEIN,URINE 1+ (NEGATIVE); UROBILINOGEN,URINE NORMAL MG/DL (0.0-1.0)
[2019-10-17 15:37] LABS: COLOR,URINE YELLOW
--- NOTE | 2019-10-17 16:43 | Diagnostic Imaging Report ---
EXAM: CT CT Head no Contrast INDICATION: Altered mental status. TECHNIQUE: Axial images of the brain were obtained with subsequent sagittal and coronal reformats. All CT scans at this facility are performed using dose modulation techniques as appropriate to a performed exam including the following: automated exposure control with adjustment of the mA and/or kV according to patient size. COMPARISON STUDY: None. RADIATION DOSE: CTDIvol: 53.4 mGy DLP: 956.4 mGy-cm Dose information generated by the CT scanner is available in PACS. FINDINGS: There is diffuse [id number] age-related volume loss. *Bilateral periventricular white matter hypodensities likely microangiopathic disease. There appears to be symmetric involvement of the anterior limb of bilateral internal capsules. There is questionable sulcal effacement and loss of hwang-white differentiation noted in the posterior left temporal lobe. This is suggested on the axial images but not confirmed on the coronal reformats. Ventricles and cisterns as well as brainstem and posterior fossa appear unremarkable. The sellar region is normal. Sinuses, mastoid air cells and bony calvarium appear intact. IMPRESSION: Age-related volume loss. 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 There is somewhat symmetric appearing hypodensities noted in the anterior limb of the internal capsules bilaterally, unusual for microischemic changes. Question other underlying causes of deep white matter edema. Questionable sulcal effacement in the posterior left temporal lobe on axial images but not confirmed on the coronal images. Recommend MR follow-up with and without contrast.
[2019-10-17 16:52] VITALS: BP 142/80
--- NOTE | 2019-10-17 16:56 | Diagnostic Imaging Report ---
Procedure: XRAY Chest 1v Reason for study: Altered mental status Comparison films: 10/05/2019. FINDINGS: Emphysematous changes of the upper lobes noted particularly the right upper lobe. Vascularity is normal. There is some crowding of markings in the lung bases. No acute alveolar process noted. Cardiac and mediastinal silhouette are within normal limits. CP angles are sharp. Aorta is tortuous. IMPRESSION: Emphysematous changes. No acute alveolar disease.
== END | disposition home or self-care (01) ==
LOC: EDUNIT# 13:31 → EDBD 13:35 → EMR 14:05
DX: R41.82 Altered mental status, unspecified (principal); I10 Essential (primary) hypertension
CPT/HCPCS: 36415; 70450; 71045; 80053; 80307; 81003; 82550; 82553; 83605; 83690; 83735; 83880; 84100; 84439; 84443; 84481; 84484; 85025; 87086; 93005; 96360; 99284; G0480

== ENCOUNTER 2019-11-12 09:09 | Emergency (ER) | payer MEDICARE, OTHER ==
[~2019-11-12] VITALS: Ht 162.6 cm; Wt 59.0 kg
[~2019-11-12 09:09] MED LIST changes: +LIDODERM700 M1 TOPIC
--- NOTE | 2019-11-12 09:12 | NUR ---
ED Nurse Note: Pt BIBA R68 for lower back pain chronic 09/05. Pt has hx of sciatica and lupus. Pt is alert and orientedx4, ambulatory with walker. Pt has no wounds.
[2019-11-12 09:17] VITALS: BP 132/99
--- NOTE | 2019-11-12 09:17 | Emergency Room Report ---
History of Present Illness General Chief Complaint: Pain Source: Patient Present Illness HPI This patient is well-known to [facility]. She has a history of chronic pain and opioid dependence. She states that she is in all over body pain and has severe pain in her back at the location of 2 previous back surgeries. She also has pain in her right shoulder and her body. She has a history of lupus. She presents regularly requesting narcotic pain medications, specifically Dilaudid. She was seen here 2 days ago for the same symptoms and was denied narcotics at that time. She presents because her pain is uncontrolled and she is requesting narcotics. She states she is also had shortness of breath. She does have a history of COPD. Each time she presents here to [facility] she states that she has an appointment with a primary care physician. When I inquired today, she states that she has an appointment next Monday. She states her daughter got this appointment for her. She also complains of nausea and an episode of vomiting. She denies fever or chills. She denies cough or congestion. She has no other complaints. Allergies: Coded Allergies: KETOROLAC TROMETHAMINE (Verified Allergy, Severe, Anaphylaxis, 10/22/18) PENICILLINS (Verified Allergy, Severe, Anaphylaxis, 10/22/18) TETRACYCLINE (Verified Allergy, Severe, Anaphylaxis, 10/22/18) HALOPERIDOL LACTATE (Verified Allergy, Intermediate, Anaphylaxis, 10/22/18) ERYTHROMYCIN BASE (Verified Allergy, Mild, 10/22/18) AMPICILLIN (Verified Allergy, Unknown, 10/22/18) ASPIRIN (Verified Allergy, Unknown, 10/22/18) AZITHROMYCIN (Unverified Allergy, Unknown, 04/17/19) IBUPROFEN (Verified Allergy, Unknown, 10/22/18) NAPROXEN (Verified Allergy, Unknown, 10/22/18) Uncoded Allergies: AMPICILLINS (Allergy, Unknown, 09/18/19) PENICILLIN (Allergy, Unknown, 09/08/19) COVID-19 Screening Contact w/high risk pt: No Recent Travel to affected area: No Experienced COVID-19 symptoms?: No COVID-19 symptoms experienced: Shortness of Breath, Cough COVID-19 Testing performed [employer] 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 Patient History Past Medical History: see triage record, asthma, COPD, CVA/TIA, other - SLE, HCV Social History: Reports: smoking; Denies: alcohol use, drug use Reviewed Nursing Documentation: PMH: Agreed; PSxH: Agreed Nursing Documentation-PMH Past Medical History: No History, Except For Hx Hypertension: No Hx Pacemaker: No Hx Asthma: Yes Hx COPD: Yes Hx Diabetes: No Hx Cancer: No Hx Gastrointestinal Problems: No Hx Dialysis: No Hx Neurological Problems: Yes - LUPUS Hx Cerebrovascular Accident: Yes - stroke Hx Seizures: No Hx Weakness: Yes Hx Neurologic Surgery: No Hx Brain Shunt: No Review of Systems All Other Systems: negative except mentioned in HPI Physical Exam Vital Signs Date Time Temp Pulse Resp B/P (MAP) Pulse Ox O2 Delivery O2 Flow Rate FiO2 11/12/19 09:10 98.2 100 17 157/108 (124) 99 Room Air Sp02 EP Interpretation: reviewed, normal General Appearance: no apparent distress, alert, GCS 15, non-toxic Head: normocephalic, atraumatic ENT: hearing grossly normal, normal pharynx, no angioedema, normal voice Neck: full range of motion, supple/symm/no masses Respiratory: chest non-tender, no respiratory distress, no retraction, no accessory muscle use, speaking full sentences, wheezing, expiration Cardiovascular #1: regular rate, rhythm, no edema Gastrointestinal: normal bowel sounds, non tender, soft, non-distended, no guarding, no rebound Rectal: deferred Musculoskeletal: back normal, normal range of motion, gait/station normal, other - TTP along R. shoulder and L-spine. Neurologic: alert, motor strength/tone normal, oriented x3, sensory intact, responsive, speech normal, other - Able to walk without difficulty using her walker (baseline). Psychiatric: judgement/insight normal, memory normal, mood/affect normal, no suicidal/homicidal ideation Skin: other - Patchy de-pigmentation face, scalp with hair loss (chronic) Medical Decision Making Diagnostic Impression: Primary Impression: Chronic pain Additional Impressions: Opioid dependence COPD exacerbation ER Course This patient presents frequently here to [facility]. She does have lupus and COPD. She is also opioid dependent and has narcotic seeking behavior. After initially examined this patient, she requested a shot of IM Dilaudid and discharged home. However, on examination, the patient has wheezing consistent with a mild COPD exacerbation. The patient fails to follow- up as an outpatient and is difficult to manage given that she has high opioid tolerance and opioid dependence. The patient was educated that she needed to have a primary care physician, pain management physician, desizing machine offbearer and orthopedist. She was educated that the emergency department was a very poor place to get her primary care and that she would not get the detailed care and ongoing pain management that she needed. She repetitively states that she does have an appointment next week with a new primary physician. I expressed to her repeatedly that she needs to have her conditions managed regularly with the appropriate specialist so that she can get a proper management of her ongoing chronic diseases. I did obtain basic labs and an x-ray of the right shoulder all of which were unremarkable and noncontributory. The patient's anemia is at her baseline. The patient then continued to ask for more narcotic after receiving 1 mg IM Dilaudid. I declined at this time. The patient is seen here regularly with narcotic seeking behavior and opioid dependence. She fails to follow on with the primary care physician or pain management. At this time, I did not identify an emergency medical condition. The patient is given return precautions and follow-up instructions. Laboratory Tests Test 11/12/19 10:25 White Blood Count 5.2 K/UL (4.8-10.8) Red Blood Count 4.30 M/UL (4.20-5.40) Hemoglobin 10.8 G/DL (12.0-16.0) L Hematocrit 34.6 % (37.0-47.0) L Mean Corpuscular Volume 81 FL (80-99) Mean Corpuscular Hemoglobin 25.0 PG (27.0-31.0) L Mean Corpuscular Hemoglobin Concent 31.1 G/DL (32.0-36.0) L Red Cell Distribution Width 18.5 % (11.6-14.8) H Platelet Count 222 K/UL (150-450) Mean Platelet Volume 6.5 FL (6.5-10.1) Neutrophils (%) (Auto) 60.8 % (45.0-75.0) Lymphocytes (%) (Auto) 23.9 % (20.0-45.0) Monocytes (%) (Auto) 9.6 % (1.0-10.0) Eosinophils (%) (Auto) 2.8 % (0.0-3.0) Basophils (%) (Auto) 3.0 % (0.0-2.0) H Urine Color Pale yellow Urine Appearance Clear Urine pH 8 (4.5-8.0) Urine Specific [place] 1.010 (1.005-1.035) Urine Protein Negative (NEGATIVE) Urine Glucose (UA) Negative (NEGATIVE) Urine Ketones Negative (NEGATIVE) Urine Blood Negative (NEGATIVE) Urine Nitrite Negative (NEGATIVE) Urine Bilirubin Negative (NEGATIVE) Urine Urobilinogen Normal MG/DL (0.0-1.0) Urine Leukocyte Esterase 1+ (NEGATIVE) H Urine RBC 0 /HPF (0 - 2) Urine WBC 0-2 /HPF (0 - 2) Urine Squamous Epithelial Cells Few /LPF (NONE/OCC) Urine Amorphous Sediment Few /LPF (NONE) H Urine Bacteria Few /HPF (NONE) Sodium Level 148 MMOL/L (136-145) H Potassium Level 5.0 MMOL/L (3.5-5.1) Chloride Level 114 MMOL/L (98-107) H Carbon Dioxide Level 21 MMOL/L (21-32) Anion Gap 13 mmol/L (5-15) Blood Urea Nitrogen 19 mg/dL (7-18) H Creatinine 0.7 MG/DL (0.55-1.30) Estimated Glomerular Filtration Rate > 60 mL/min (>60) Glucose Level 94 MG/DL (74-106) Calcium Level 8.8 MG/DL (8.5-10.1) Total Bilirubin 0.6 MG/DL (0.2-1.0) Aspartate Amino Transferase (AST) 48 U/L (15-37) H Alanine Aminotransferase (ALT) 19 U/L (12-78) Alkaline Phosphatase 76 U/L (46-116) Total Protein 7.3 G/DL (6.4-8.2) Albumin 3.1 G/DL (3.4-5.0) L Globulin 4.2 g/dL Albumin/Globulin Ratio 0.7 (1.0-2.7) L Other X-Ray Diagnostic Results Other X-Ray Diagnostic Results : X-Ray ordered: R. shoulder xray # of Views/Limited Vs Complete: Complete Indication: Pain EP Interpretation: Yes Interpretation: no dislocation, no fractures Impression: No acute disease Electronically Signed by: Rachel Shirley DO Last Vital Signs Date Time Temp Pulse Resp B/P (MAP) Pulse Ox O2 Delivery O2 Flow Rate FiO2 11/12/19 09:10 98.2 100 17 157/108 (124) 99 Room Air Status: improved Disposition: HOME, SELF-CARE Condition: Improved Rachel Shirley DO Nov 12, 2019 09:17
[2019-11-12] MEDS ORDERED: HYDROmorphone 1mg/ml Carpuject IM ONE (09:45)
[2019-11-12] MEDS ORDERED: Ipratropium 0.02% Inh Soln 2.5ml UD HHN ONE (10:15)
[2019-11-12] MEDS ORDERED: Albuterol ud Inhalation HHN ONE (10:15)
[2019-11-12 10:38] LABS: APPEARANCE,URINE CLEAR; BILIRUBIN, URINE NEGATIVE (NEGATIVE); COLOR,URINE PALE YELLOW; GLUCOSE, URINE (UA) NEGATIVE (NEGATIVE); KETONES,URINE NEGATIVE (NEGATIVE); LEUKOCYTE ESTERASE ,URINE 1+ (NEGATIVE); NITRITE,URINE NEGATIVE (NEGATIVE); PH,URINE 8 (4.5-8.0); PROTEIN,URINE NEGATIVE (NEGATIVE); UROBILINOGEN,URINE NORMAL MG/DL (0.0-1.0)
[2019-11-12 10:40] LABS: EOSINOPHILS % (AUTO) 2.8 % (0.0-3.0); HEMATOCRIT 34.6 % (37.0-47.0); HEMOGLOBIN 10.8 G/DL (12.0-16.0); LYMPHOCYTES % (AUTO) 23.9 % (20.0-45.0); MEAN CORPUSCULAR VOLUME 81 FL (80-99); MONOCYTES % (AUTO) 9.6 % (1.0-10.0); NEUTROPHILS % (AUTO) 60.8 % (45.0-75.0); PLATELET COUNT 222 K/UL (150-450); RED CELL DISTRIBUTION WIDTH 18.5 % (11.6-14.8); WHITE BLOOD COUNT 5.2 K/UL (4.8-10.8)
[2019-11-12 10:49] LABS: ANION GAP 13 mmol/L (5-15); BLOOD UREA NITROGEN 19 mg/dL (7-18); CALCIUM 8.8 MG/DL (8.5-10.1); CARBON DIOXIDE 21 MMOL/L (21-32); CHLORIDE 114 MMOL/L (98-107); CREATININE 0.7 MG/DL (0.55-1.30); SODIUM 148 MMOL/L (136-145)
[2019-11-12 10:53] LABS: ALANINE AMINOTRANSFERASE 19 U/L (12-78); ALBUMIN 3.1 G/DL (3.4-5.0); ALBUMIN/GLOBULIN RATIO 0.7 (1.0-2.7); ALKALINE PHOSPHATASE 76 U/L (46-116); ASPARTATE AMINO TRANSFERASE 48 U/L (15-37); BILIRUBIN,TOTAL 0.6 MG/DL (0.2-1.0)
--- NOTE | 2019-11-12 11:15 | NUR ---
ED Nurse Note: ERMD states pt ok to be discharged without RT treatment.
[2019-11-12 11:20] VITALS: BP 129/97
--- NOTE | 2019-11-12 11:20 | NUR ---
ER DISCHARGE NOTE: Patient is cleared to be discharged per ERMD, pt is aox4, on room air, with stable vital signs. pt was given dc and prescription instructions, pt was able to verbalize understanding, pt id band removed. pt is able to ambulate with walker with steady gait. pt took all belongings. Pt refused to sign DC papers.
--- NOTE | 2019-11-12 11:24 | Diagnostic Imaging Report ---
EXAM: X-RAY XRAY Shoulder Compl R CLINICAL HISTORY: Shoulder pain. COMPARISON: None FINDINGS: Total of 3 views of the right shoulder were obtained. Alignment is anatomic. There is no fracture, bony lesions or erosions. Joint spaces are unremarkable. Surrounding soft tissue is normal. IMPRESSION: NO ACUTE BONY ABNORMALITY.
== END 2019-11-12 11:20 | disposition home or self-care (01) ==
LOC: EDUNIT# 09:09 → EDBD 09:09 → EMR 09:25
DX: G89.29 Other chronic pain (principal); F11.20 Opioid dependence, uncomplicated; J44.1 Chronic obstructive pulmonary disease with (acute) exacerbation; Z88.0 Allergy status to penicillin; Z88.6 Allergy status to analgesic agent; Z88.8 Allergy status to other drugs, medicaments and biological substances; Z86.73 Personal history of transient ischemic attack (TIA), and cerebral infarction without residual deficits; F17.200 Nicotine dependence, unspecified, uncomplicated; Z86.19 Personal history of other infectious and parasitic diseases
CPT/HCPCS: 36415; 73030; 80053; 81003; 85025; 96372; 99284; J1170; J7512

== ENCOUNTER 2019-11-20 10:20 | Emergency (ER) | payer MEDICARE, OTHER ==
[~2019-11-20] VITALS: Ht 165.1 cm; Wt 59.0 kg
[2019-11-20 10:25] VITALS: BP 164/95
--- NOTE | 2019-11-20 10:25 | NUR ---
ED Nurse Note: pt BIBA RA 58 from home due to severe lower back pain and abdominal pain with chills ongoing for 2 days. Pt denies n/v/d, denies fever. Pt states pain "has never been this bad." Pt is awake alert and oriented x3. Breathing even and unlabored, vital signs stable as documented.
--- NOTE | 2019-11-20 10:29 | Emergency Room Report ---
History of Present Illness General Chief Complaint: Lower Back Pain or Injury Source: Patient, EMS Present Illness HPI Patient is a 69-year-old female past medical history of lupus, chronic blindness from glaucoma, chronic pain who was brought in by EMS from her home for back pain and abdominal pain. Patient complains of back pain abdominal pain that started yesterday. She complains of nausea. She denies any fever. She denies any chest pain or shortness of breath. She denies any vomiting. She denies any diarrhea. She denies any focal weakness or rash. She denies any trauma to her back. She states that she has had 2 old spinal surgeries and suffers from chronic pain. Allergies: Coded Allergies: KETOROLAC TROMETHAMINE (Verified Allergy, Severe, Anaphylaxis, 10/22/18) PENICILLINS (Verified Allergy, Severe, Anaphylaxis, 10/22/18) TETRACYCLINE (Verified Allergy, Severe, Anaphylaxis, 10/22/18) HALOPERIDOL LACTATE (Verified Allergy, Intermediate, Anaphylaxis, 10/22/18) ERYTHROMYCIN BASE (Verified Allergy, Mild, 10/22/18) AMPICILLIN (Verified Allergy, Unknown, 10/22/18) ASPIRIN (Verified Allergy, Unknown, 10/22/18) AZITHROMYCIN (Unverified Allergy, Unknown, 04/17/19) IBUPROFEN (Verified Allergy, Unknown, 10/22/18) NAPROXEN (Verified Allergy, Unknown, 10/22/18) Uncoded Allergies: AMPICILLINS (Allergy, Unknown, 09/18/19) PENICILLIN (Allergy, Unknown, 09/08/19) COVID-19 Screening Contact w/high risk pt: No Recent Travel to affected area: No Experienced COVID-19 symptoms?: Yes COVID-19 symptoms experienced: Shortness of Breath, Cough COVID-19 Testing performed BUCKLE GLUER: No Patient History Now: No Reviewed Nursing Documentation: PMH: Agreed; PSxH: Agreed Nursing Documentation-PMH Hx Hypertension: No Hx Pacemaker: No Hx Asthma: Yes Hx COPD: Yes Hx Diabetes: No Hx Cancer: No Hx Gastrointestinal Problems: No Hx Dialysis: No Hx Neurological Problems: Yes - LUPUS Hx Cerebrovascular Accident: Yes - stroke Hx Seizures: No Hx Weakness: Yes Hx Neurologic Surgery: No Hx Brain Shunt: No Review of Systems All Other Systems: negative except mentioned in HPI Physical Exam Vital Signs Date Time Temp Pulse Resp B/P (MAP) Pulse Ox O2 Delivery O2 Flow Rate FiO2 11/20/19 10:20 98.1 94 18 162/96 (118) 96 Room Air Sp02 EP Interpretation: reviewed, normal General Appearance: no apparent distress, alert, GCS 15, non-toxic, Chronically Ill Head: normocephalic, atraumatic Eyes: bilateral eye normal inspection, bilateral eye PERRL ENT: hearing grossly normal, normal pharynx, no angioedema, normal voice Neck: full range of motion, supple/symm/no masses Respiratory: chest non-tender, lungs clear, normal breath sounds, speaking full sentences Cardiovascular #1: regular rate, rhythm, no edema Gastrointestinal: normal bowel sounds, soft, non-distended, no guarding, no rebound, other - Mild diffuse abdominal pain Rectal: deferred, other - No saddle anesthesia Genitourinary: no CVA tenderness Musculoskeletal: no calf tenderness, other - Lower back pain with healed vertical lumbar surgical incision site no erythema and no tenderness to p alpation along the incision site 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 Patient is well-known to this emergency department. Patient suffers from chronic pain. Patient given 1 mg of Ativan with good pain relief. Patient's labs demonstrate mild hypokalemia. Patient given oral potassium chloride. Patient CT demonstrates no acute intra-abdominal pathology. Questionable atelectasis versus infiltrate. Patient has no elevated white blood cell count, no fever, no cough and no rhonchi on physical exam. I suspect the back pain that the patient is presenting with is non-emergent in etiology. Regarding the history, the patient denies gradual onset, trauma, fevers, night sweats, history of malignancy, pain worse at night, IVDU or refractory pain. Given these pertinent negatives in the history an emergent c ause of the back pain is less likely. Also doubt cardiovascular cause of back pain such as aortic dissection or ruptured abdominal aortic aneurysm given patient with equal pulses in all 4 extremities with no diastolic murmur, or pulsatile abdominal mass. Epidural abscess considered unlikely given no fever or history of IVDU. The patient does not have history of malignancy so doubt metastasis to bone. Also doubt caudaequina syndrome since patient with no history of urinary/fecal incontinence or focal weakness or change in sensation. The patient was counseled that, though unlikely, the possibility of an emergent cause of back pain may still be present and that the patient should return immediately if symptoms persists or worsen. I believe the patient is stable for discharge to follow-up with their PMD for further workup and possible MRI. Laboratory Tests Test 11/20/19 10:45 11/20/19 11:14 White Blood Count 4.1 K/UL (4.8-10.8) L Red Blood Count 4.38 M/UL (4.20-5.40) Hemoglobin 11.0 G/DL (12.0-16.0) L Hematocrit 35.2 % (37.0-47.0) L Mean Corpuscular Volume 80 FL (80-99) Mean Corpuscular Hemoglobin 25.0 PG (27.0-31.0) L Mean Corpuscular Hemoglobin Concent 31.2 G/DL (32.0-36.0) L Red Cell Distribution Width 18.8 % (11.6-14.8) H Platelet Count 247 K/UL (150-450) Mean Platelet Volume 5.6 FL (6.5-10.1) L Neutrophils (%) (Auto) 48.9 % (45.0-75.0) Lymphocytes (%) (Auto) 35.6 % (20.0-45.0) Monocytes (%) (Auto) 10.2 % (1.0-10.0) H Eosinophils (%) (Auto) 2.1 % (0.0-3.0) Basophils (%) (Auto) 3.2 % (0.0-2.0) H Prothrombin Time 12.4 SEC (9.30-11.50) H Prothrombin Time INR 1.1 (0.9-1.1) Activated Partial Thromboplast Time 25 SEC (23-33) Sodium Level 143 MMOL/L (136-145) Potassium Level 3.2 MMOL/L (3.5-5.1) L Chloride Level 110 MMOL/L (98-107) H Carbon Dioxide Level 20 MMOL/L (21-32) L Anion Gap 13 mmol/L (5-15) Blood Urea Nitrogen 9 mg/dL (7-18) Creatinine 0.6 MG/DL (0.55-1.30) Estimated Glomerular Filtration Rate > 60 mL/min (>60) Glucose Level 106 MG/DL (74-106) Calcium Level 9.1 MG/DL (8.5-10.1) Total Bilirubin 0.6 MG/DL (0.2-1.0) Aspartate Amino Transferase (AST) 19 U/L (15-37) Alanine Aminotransferase (ALT) 19 U/L (12-78) Alkaline Phosphatase 85 U/L (46-116) Total Protein 7.0 G/DL (6.4-8.2) Albumin 3.4 G/DL (3.4-5.0) Globulin 3.6 g/dL Albumin/Globulin Ratio 0.9 (1.0-2.7) L Lipase 183 U/L (73-393) Urine Color Yellow Urine Appearance Clear Urine pH 6 (4.5-8.0) Urine Specific [place] 1.015 (1.005-1.035) Urine Protein Negative (NEGATIVE) Urine Glucose (UA) Negative (NEGATIVE) Urine Ketones Negative (NEGATIVE) Urine Blood Negative (NEGATIVE) Urine Nitrite Negative (NEGATIVE) Urine Bilirubin Negative (NEGATIVE) Urine Urobilinogen 1 MG/DL (0.0-1.0) H Urine Leukocyte Esterase 1+ (NEGATIVE) H Urine RBC 0-2 /HPF (0 - 2) Urine WBC 0-2 /HPF (0 - 2) Urine Squamous Epithelial Cells Occasional /LPF Urine Bacteria Occasional /HPF (NONE) Rhythm Strip Diag. Results Rhythm Strip Time: 10:29 EP Interpretation: yes - Odilia Ocasio MD Rate: 94 bpm Rhythm: NSR, no PVC's, no ectopy Last Vital Signs Date Time Temp Pulse Resp B/P (MAP) Pulse Ox O2 Delivery O2 Flow Rate FiO2 11/20/19 10:20 98.1 94 18 162/96 (118) 96 Room Air Disposition: HOME, SELF-CARE Condition: Stable Additional Instructions: The patient was provided with discharge instructions, notified to follow-up with a primary care doctor and or specialist in the next 24-48 hours, and to return to the ED if they have worsening of their symptoms. Please note that this report is being documented using [email or web address] technology. This can lead to erroneous entry secondary to incorrect interpretation by the dictating instrument. Odilia Ocasio M.D. Nov 20, 2019 10:29
[2019-11-20] MEDS ORDERED: HYDROmorphone 1mg/ml Carpuject IVP ONE (10:30)
--- NOTE | 2019-11-20 10:35 | NUR ---
ED Nurse Note: blood sent to lab, pt unable to void at this time.
[2019-11-20 10:56] LABS: BASOPHILS % (AUTO) 3.2 % (0.0-2.0); EOSINOPHILS % (AUTO) 2.1 % (0.0-3.0); HEMATOCRIT 35.2 % (37.0-47.0); LYMPHOCYTES % (AUTO) 35.6 % (20.0-45.0); MEAN CORPUSCULAR VOLUME 80 FL (80-99); MONOCYTES % (AUTO) 10.2 % (1.0-10.0); NEUTROPHILS % (AUTO) 48.9 % (45.0-75.0); PLATELET COUNT 247 K/UL (150-450); RED BLOOD COUNT 4.38 M/UL (4.20-5.40); RED CELL DISTRIBUTION WIDTH 18.8 % (11.6-14.8); WHITE BLOOD COUNT 4.1 K/UL (4.8-10.8)
[2019-11-20 11:07] LABS: INR 1.1 (0.9-1.1)
[2019-11-20 11:10] LABS: ANION GAP 13 mmol/L (5-15); BLOOD UREA NITROGEN 9 mg/dL (7-18); CALCIUM 9.1 MG/DL (8.5-10.1); CARBON DIOXIDE 20 MMOL/L (21-32); CHLORIDE 110 MMOL/L (98-107); CREATININE 0.6 MG/DL (0.55-1.30); POTASSIUM 3.2 MMOL/L (3.5-5.1); SODIUM 143 MMOL/L (136-145)
[2019-11-20 11:14] LABS: ALANINE AMINOTRANSFERASE 19 U/L (12-78); ALBUMIN 3.4 G/DL (3.4-5.0); ALBUMIN/GLOBULIN RATIO 0.9 (1.0-2.7); ALKALINE PHOSPHATASE 85 U/L (46-116); ASPARTATE AMINO TRANSFERASE 19 U/L (15-37); BILIRUBIN,TOTAL 0.6 MG/DL (0.2-1.0)
--- NOTE | 2019-11-20 11:15 | NUR ---
ED Nurse Note: pt transported to CT via wheelchair, pt instable condition.
[2019-11-20 11:41] LABS: APPEARANCE,URINE CLEAR; BILIRUBIN, URINE NEGATIVE (NEGATIVE); COLOR,URINE YELLOW; GLUCOSE, URINE (UA) NEGATIVE (NEGATIVE); KETONES,URINE NEGATIVE (NEGATIVE); LEUKOCYTE ESTERASE ,URINE 1+ (NEGATIVE); NITRITE,URINE NEGATIVE (NEGATIVE); PH,URINE 6 (4.5-8.0); PROTEIN,URINE NEGATIVE (NEGATIVE); UROBILINOGEN,URINE 1 MG/DL (0.0-1.0)
--- NOTE | 2019-11-20 11:51 | Diagnostic Imaging Report ---
EXAM: CT CT Abdomen Pelvis WO Contrast INDICATION: Reason For Exam: ABD PAIN. COMPARISON: 10/05/2019 TECHNIQUE: Axial images were obtained through the abdomen pelvis without intravenous contrast. Sagittal and coronal reformats are generated. All CT scans at this facility are performed using dose modulation techniques as appropriate to a performed exam including the following: automated exposure control with adjustment of the mA and/or kV according to patient size. RADIATION DOSE: CTDIvol: 3.8 mGy DLP: 161.9 mGy-cm Dose information generated by the CT scanner is available in PACS. FINDINGS: Emphysematous changes in the lung bases again noted. There are dependent atelectasis or infiltrates in the posterior aspect of both lung bases. The liver and spleen are homogeneous. Gallbladder is absent. There is slight prominence of extrahepatic ducts at the level of the head of the pancreas. Pancreas appears stable and unchanged compared to previous exam. Adrenals are normal in morphology. There is punctate intrarenal stone midportion of the right kidney. Small cyst noted upper pole left kidney. No hydronephrosis. Small bowel loops are nondistended. There is diverticulosis without sign of acute diverticulitis. The appendix is not visualized. There is no free fluid or free air. No pathologic adenopathy demonstrated. Urinary bladder appears unremarkable. Degenerative changes of the spine noted. IMPRESSION: EMPHYSEMATOUS CHANGES IN BOTH LUNG BASES. DEPENDENT ATELECTASIS VERSUS INFILTRATES. STATUS POST CHOLECYSTECTOMY WITH STABLE EXTRAHEPATIC DUCTAL PROMINENCE. PUNCTATE INTRARENAL STONE RIGHT KIDNEY. LEFT RENAL CYST. NO HYDRONEPHROSIS. DIVERTICULOSIS.
--- NOTE | 2019-11-20 12:17 | NUR ---
ER DISCHARGE NOTE: Patient is cleared to be discharged per ERMD, pt is aox4, on room air, with stable vital signs. pt was given dc and prescription instructions, pt was able to verbalize understanding, pt id band and iv site removed without complications. pt is able to ambulate with steady gait with walker. pt took all belongings.
[2019-11-20 12:18] VITALS: BP 158/88
[2019-11-21] MEDS ORDERED: ACETAMINOPHEN-1 EAC2 ORAL (09:52)
== END 2019-11-20 12:17 | disposition home or self-care (01) ==
LOC: EDBD 10:20 → EMR 10:39
DX: M54.9 Dorsalgia, unspecified (principal); G89.29 Other chronic pain; R10.9 Unspecified abdominal pain; Z88.0 Allergy status to penicillin; Z88.6 Allergy status to analgesic agent; Z88.8 Allergy status to other drugs, medicaments and biological substances; R11.0 Nausea; J44.9 Chronic obstructive pulmonary disease, unspecified; Z86.73 Personal history of transient ischemic attack (TIA), and cerebral infarction without residual deficits; L80 Vitiligo; K57.90 Diverticulosis of intestine, part unspecified, without perforation or abscess without bleeding; N28.1 Cyst of kidney, acquired; N20.0 Calculus of kidney; J98.11 Atelectasis; Z90.49 Acquired absence of other specified parts of digestive tract
CPT/HCPCS: 36415; 74176; 80053; 81003; 83690; 85025; 85610; 85730; 96374; 96375; 99284; J1170; J2405; J8499

== ENCOUNTER 2019-11-21 09:38 | Emergency (ER) | payer MEDICARE, OTHER ==
[~2019-11-21] VITALS: Ht 162.6 cm; Wt 59.0 kg
[2019-11-21 09:40] VITALS: BP 120/80
[2019-11-21] MEDS ORDERED: ACETAMINOPHEN-1 EAC2 ORAL (09:52)
[2019-11-21] MEDS ORDERED: HYDROmorphone 1mg/ml Carpuject IM ONE (10:00)
--- NOTE | 2019-11-21 10:37 | Emergency Room Report ---
History of Present Illness General Chief Complaint: General Complaint Source: Patient, Medical Record Present Illness HPI Patient is well-known to the emergency department. Patient has had multiple visits in the past. Patient has history of lupus chronic pain and chronic glaucoma. Patient was here just yesterday. Patient returns today complaining of recurrent pain. Patient denies any fever nausea vomiting diarrhea chills. Patient has had extensive work-up yesterday. All work-up which is negative. Patient is requesting pain medications at this time. Patient does not want a work-up. No other complaints are noted. Symptoms noted to be moderate to sever e. Patient states that she has diffuse body pains usually improved by Dilaudid injection. No other modifying factors. No other associated signs and symptoms. No other complaints were noted. Allergies: Coded Allergies: KETOROLAC TROMETHAMINE (Verified Allergy, Severe, Anaphylaxis, 10/22/18) PENICILLINS (Verified Allergy, Severe, Anaphylaxis, 10/22/18) TETRACYCLINE (Verified Allergy, Severe, Anaphylaxis, 10/22/18) HALOPERIDOL LACTATE (Verified Allergy, Intermediate, Anaphylaxis, 10/22/18) ERYTHROMYCIN BASE (Verified Allergy, Mild, 10/22/18) AMPICILLIN (Verified Allergy, Unknown, 10/22/18) ASPIRIN (Verified Allergy, Unknown, 10/22/18) AZITHROMYCIN (Unverified Allergy, Unknown, 04/17/19) IBUPROFEN (Verified Allergy, Unknown, 10/22/18) NAPROXEN (Verified Allergy, Unknown, 10/22/18) Uncoded Allergies: AMPICILLINS (Allergy, Unknown, 09/18/19) PENICILLIN (Allergy, Unknown, 09/08/19) COVID-19 Screening Contact w/high risk pt: No Recent Travel to affected area: No Experienced COVID-19 symptoms?: No COVID-19 symptoms experienced: Shortness of Breath, Cough COVID-19 Testing performed 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 PMH Narrative Chronic glaucoma Social History: Denies: smoking, alcohol use, drug use Reviewed Nursing Documentation: PMH: Agreed; PSxH: Agreed Nursing Documentation-PMH Hx Hypertension: No Hx Pacemaker: No Hx Asthma: Yes Hx COPD: Yes Hx Diabetes: No Hx Cancer: No Hx Gastrointestinal Problems: No Hx Dialysis: No Hx Neurological Problems: Yes - LUPUS Hx Cerebrovascular Accident: Yes - stroke Hx Seizures: No Hx Weakness: Yes Hx Neurologic Surgery: No Hx Brain Shunt: No Review of Systems All Other Systems: negative except mentioned in HPI Physical Exam Vital Signs Date Time Temp Pulse Resp B/P (MAP) Pulse Ox O2 Delivery O2 Flow Rate FiO2 11/21/19 09:35 98.1 78 16 120/80 (93) 98 Room Air Sp02 EP Interpretation: reviewed, normal General Appearance: alert, mild distress - Due to pain Head: normocephalic, atraumatic Eyes: bilateral eye normal inspection ENT: normal ENT inspection, hearing grossly normal, normal voice Neck: normal inspection, full range of motion, supple Respiratory: normal inspection, lungs clear, normal breath sounds, no respiratory distress, no retraction, no wheezing Cardiovascular #1: regular rate, rhythm, no edema Gastrointestinal: normal inspection, normal bowel sounds, non tender, soft, no guarding, no hernia Genitourinary: no CVA tenderness Musculoskeletal: normal inspection, back normal, normal range of motion Neurologic: alert, responsive, speech normal, normal inspection Psychiatric: normal inspection, depressed affect, anxious Skin: other - Chronic skin changes around the nose Medical Decision Making Diagnostic Impression: Primary Impression: Lupus Additional Impression: Chronic pain ER Course Patient presents emergency department today complaint acute lupus exacerbation. Patient has chronic pain and chronic glaucoma. Differential considerations include lupus exacerbation, infectious process, opiate dependence. Patient is exam fairly benign and typical for her usual complaints. Patient is again has had extensive work-up in the last 24 hours. Therefore no further work-up is indicated at this time. Will provide patient with pain medications as requested. Patient is advised to follow up with primary doctor in 2-3 days and return the emergency room for any worsening symptoms and as needed. Last Vital Signs Date Time Temp Pulse Resp B/P (MAP) Pulse Ox O2 Delivery O2 Flow Rate FiO2 11/21/19 10:26 98.1 11/21/19 09:40 78 16 Room Air 11/21/19 09:40 120/80 98 Status: improved Disposition: HOME, SELF-CARE Condition: Stable Scripts Acetaminophen With Codeine (T#4) (TYLENOL #4 TAB*) Y Tab 1 TAB ORAL Q8H PRN for For Pain, #20 TAB 0 Refills Prov: Conrad Garcia MD 11/21/19 Referrals: NOT CHOSEN IPA/,REFERRING (PCP) Patient Instructions: Chronic Pain Conrad Garcia MD Nov 21, 2019 10:37
[2019-11-21 10:39] VITALS: BP 120/80
== END 2019-11-21 10:40 | disposition home or self-care (01) ==
LOC: EDBD 09:38 → EMR 10:22
DX: M32.9 Systemic lupus erythematosus, unspecified (principal); G89.29 Other chronic pain; Z88.0 Allergy status to penicillin; Z88.6 Allergy status to analgesic agent; Z88.8 Allergy status to other drugs, medicaments and biological substances; J44.9 Chronic obstructive pulmonary disease, unspecified; Z86.73 Personal history of transient ischemic attack (TIA), and cerebral infarction without residual deficits; H40.9 Unspecified glaucoma
CPT/HCPCS: 96372; 99283; J1170

== ENCOUNTER 2019-11-21 11:22 | Emergency (ER) | payer MEDICARE, OTHER ==
[~2019-11-21] VITALS: Ht 170.2 cm; Wt 54.4 kg
[2019-11-21 11:42] VITALS: BP 150/80
--- NOTE | 2019-11-21 12:22 | Emergency Room Report ---
History of Present Illness General Chief Complaint: Pain Source: Patient Present Illness HPI Patient presents to the emergency department today complaining of body aches. Patient of note was just seen by myself and discharged less than an hour ago. Patient was awaiting a transportation home and decided to check back in because she was having some body aches. She denies any shortness of breath chest pain. Denies any nausea or vomiting. No other modifying factors. No other associated signs and symptoms. No other complaints were noted. Allergies: Coded Allergies: KETOROLAC TROMETHAMINE (Verified Allergy, Severe, Anaphylaxis, 10/22/18) PENICILLINS (Verified Allergy, Severe, Anaphylaxis, 10/22/18) TETRACYCLINE (Verified Allergy, Severe, Anaphylaxis, 10/22/18) HALOPERIDOL LACTATE (Verified Allergy, Intermediate, Anaphylaxis, 10/22/18) ERYTHROMYCIN BASE (Verified Allergy, Mild, 10/22/18) AMPICILLIN (Verified Allergy, Unknown, 10/22/18) ASPIRIN (Verified Allergy, Unknown, 10/22/18) AZITHROMYCIN (Unverified Allergy, Unknown, 04/17/19) IBUPROFEN (Verified Allergy, Unknown, 10/22/18) NAPROXEN (Verified Allergy, Unknown, 10/22/18) Uncoded Allergies: AMPICILLINS (Allergy, Unknown, 09/18/19) PENICILLIN (Allergy, Unknown, 09/08/19) COVID-19 Screening Contact w/high risk pt: No Recent Travel to affected area: No Experienced COVID-19 symptoms?: No COVID-19 symptoms experienced: Shortness of Breath, Cough COVID-19 Testing performed 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: No Patient History Past Medical History: asthma, COPD, other - Lupus, glaucoma chronic, chronic pain Past Surgical History: none Pertinent Family History: none Social History: Denies: smoking, alcohol use, drug use Last Menstrual Period: NA Now: No Reviewed Nursing Documentation: PMH: Agreed; PSxH: Agreed Nursing Documentation-PMH Past Medical History: No History, Except For Hx Hypertension: No Hx Pacemaker: No Hx Asthma: Yes Hx COPD: Yes Hx Diabetes: No Hx Cancer: No Hx Gastrointestinal Problems: No Hx Dialysis: No Hx Neurological Problems: Yes - LUPUS Hx Cerebrovascular Accident: Yes - stroke Hx Seizures: No Hx Weakness: Yes Hx Neurologic Surgery: No Hx Brain Shunt: No Review of Systems All Other Systems: negative except mentioned in HPI Physical Exam Vital Signs Date Time Temp Pulse Resp B/P (MAP) Pulse Ox O2 Delivery O2 Flow Rate FiO2 11/21/19 11:28 98.2 93 18 156/87 (110) 98 Room Air Sp02 EP Interpretation: reviewed, normal General Appearance: normal inspection, well appearing, no apparent distress, alert Head: atraumatic Eyes: bilateral eye normal inspection ENT: normal ENT inspection, hearing grossly normal, normal voice Neck: normal inspection, full range of motion, supple Respiratory: normal inspection, lungs clear, normal breath sounds, no respiratory distress, no retraction, no wheezing Cardiovascular #1: regular rate, rhythm, no edema Gastrointestinal: normal inspection, normal bowel sounds, non tender, soft, no guarding, no hernia Genitourinary: no CVA tenderness Musculoskeletal: normal inspection, back normal, normal range of motion Neurologic: alert, responsive, speech normal, normal inspection Psychiatric: normal inspection, judgement/insight normal, mood/affect normal Skin: other - Loss of melanocytes over patient's nasal area Medical Decision Making Diagnostic Impression: Primary Impression: Chronic pain ER Course Patient presents emergency department today complaining of body aches again. Patient was reevaluated. Patient did not have any new findings. Therefore I felt that no further work-up is indicated at this time. I informed patient that I would be uncomfortable administering another dose of Dilaudid at this time. Patient was given a prescription for Tylenol fours prior to discharge. Therefore patient was advised to fill that medication. We will provide patient with transportation home. She is advised to follow-up with primary care physician and return as needed. Last Vital Signs Date Time Temp Pulse Resp B/P (MAP) Pulse Ox O2 Delivery O2 Flow Rate FiO2 11/21/19 11:42 98.0 88 18 150/80 98 Room Air Status: unchanged Disposition: HOME, SELF-CARE Condition: Stable Referrals: NOT CHOSEN IPA/,REFERRING (PCP) Conrad Garcia MD Nov 21, 2019 12:22
== END 2019-11-21 11:40 | disposition home or self-care (01) ==
LOC: EMR 11:36
DX: G89.29 Other chronic pain (principal); Z88.0 Allergy status to penicillin; Z88.6 Allergy status to analgesic agent; Z88.8 Allergy status to other drugs, medicaments and biological substances; J44.9 Chronic obstructive pulmonary disease, unspecified; H40.9 Unspecified glaucoma; Z86.73 Personal history of transient ischemic attack (TIA), and cerebral infarction without residual deficits
CPT/HCPCS: 99281

== ENCOUNTER 2019-11-22 07:54 | Emergency (ER) | payer MEDICARE, OTHER ==
[~2019-11-22] VITALS: Ht 170.2 cm; Wt 54.4 kg
[2019-11-22 08:02] VITALS: BP 172/92
--- NOTE | 2019-11-22 08:10 | Emergency Room Report ---
History of Present Illness General Chief Complaint: Pain Source: Patient Present Illness HPI 69-year-old female presenting with acute exacerbation of chronic pain patient with a history of lupus, drug-seeking behavior, opioid dependence presents with chronic upper back pain sharp in nature aggravated with movement alleviated with rest and hydromorphone severity is mild intermittent, no fevers no chills abeba styles was seen here yesterday and the day before with a work-up that was negative. Patient was also given a prescription of narcotics. Patient is requesting more narcotics as well as a hydromorphone shot. Patient denies any fevers chills chest pain, she reports chronic shortness of breath, no nausea no vomiting no abdominal pain. Patient states she has chronic pain. Allergies: Coded Allergies: KETOROLAC TROMETHAMINE (Verified Allergy, Severe, Anaphylaxis, 10/22/18) PENICILLINS (Verified Allergy, Severe, Anaphylaxis, 10/22/18) TETRACYCLINE (Verified Allergy, Severe, Anaphylaxis, 10/22/18) HALOPERIDOL LACTATE (Verified Allergy, Intermediate, Anaphylaxis, 10/22/18) ERYTHROMYCIN BASE (Verified Allergy, Mild, 10/22/18) AMPICILLIN (Verified Allergy, Unknown, 10/22/18) ASPIRIN (Verified Allergy, Unknown, 10/22/18) AZITHROMYCIN (Unverified Allergy, Unknown, 04/17/19) IBUPROFEN (Verified Allergy, Unknown, 10/22/18) NAPROXEN (Verified Allergy, Unknown, 10/22/18) Uncoded Allergies: AMPICILLINS (Allergy, Unknown, 09/18/19) PENICILLIN (Allergy, Unknown, 09/08/19) COVID-19 Screening Contact w/high risk pt: No Recent Travel to affected area: No Experienced COVID-19 symptoms?: No COVID-19 symptoms experienced: Shortness of Breath, Cough COVID-19 Testing performed 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 Patient History Past Medical History: see triage record Reviewed Nursing Documentation: PMH: Agreed; PSxH: Agreed Nursing Documentation-PMH Past Medical History: No History, Except For Hx Hypertension: No Hx Pacemaker: No Hx Asthma: Yes Hx COPD: Yes Hx Diabetes: No Hx Cancer: No Hx Gastrointestinal Problems: No Hx Dialysis: No Hx Neurological Problems: Yes - LUPUS Hx Cerebrovascular Accident: Yes - stroke Hx Seizures: No Hx Weakness: Yes Hx Neurologic Surgery: No Hx Brain Shunt: No Review of Systems All Other Systems: negative except mentioned in HPI Physical Exam Vital Signs Date Time Temp Pulse Resp B/P (MAP) Pulse Ox O2 Delivery O2 Flow Rate FiO2 11/22/19 07:51 98.8 92 16 185/95 (125) 100 Room Air General Appearance: well appearing, no apparent distress Head: normocephalic, atraumatic ENT: hearing grossly normal, normal voice Neck: full range of motion, supple Respiratory: lungs clear, no respiratory distress, speaking full sentences Cardiovascular #1: regular rate, rhythm, no JVD, no murmur Musculoskeletal: other - Tenderness palpation along the right latissimus dorsi Neurologic: alert, normal gait Psychiatric: mood/affect normal Skin: no rash Medical Decision Making Diagnostic Impression: Primary Impression: Chronic pain Qualified Codes: G89.29 - Other chronic pain ER Course 69-year-old female with an extensive work-up on 11/20/2019 with recurrent visits the ED requesting narcotics. No acute interventions for work-up, patient states she only needs a pain shot. Will provide patient with hydromorphone shot doubt acute emergent processes at this time, considered. Epidural abscess, drug-seeking behavior, ACS Will disposition patient home with return precautions patient will follow-up patient counseled to follow-up with chronic pain management Last Vital Signs Date Time Temp Pulse Resp B/P (MAP) Pulse Ox O2 Delivery O2 Flow Rate FiO2 11/22/19 08:02 98.8 84 18 172/92 98 Room Air Disposition: HOME, SELF-CARE Condition: Stable Referrals: NOT CHOSEN IPA/,REFERRING (PCP) [facility] Patient Instructions: Chronic Pain Additional Instructions: The patient was provided with discharge instructions, notified to follow-up with a primary care doctor and or specialist in the next 24-48 hours, and to return to the ED if they have worsening of their symptoms. Please note that this report is being documented using Archiver's technology. This can lead to erroneous entry secondary to incorrect interpretation by the dictating instrument. Ranjan Trevino MD Nov 22, 2019 08:10
[2019-11-22 08:26] VITALS: BP 152/90
== END 2019-11-22 08:31 | disposition home or self-care (01) ==
LOC: EDBD 07:54 → EMR 08:06
DX: G89.29 Other chronic pain (principal); J44.9 Chronic obstructive pulmonary disease, unspecified; Z86.73 Personal history of transient ischemic attack (TIA), and cerebral infarction without residual deficits; Z88.0 Allergy status to penicillin; Z88.6 Allergy status to analgesic agent; Z88.1 Allergy status to other antibiotic agents; Z88.8 Allergy status to other drugs, medicaments and biological substances; Z79.51 Long term (current) use of inhaled steroids; Z79.891 Long term (current) use of opiate analgesic
CPT/HCPCS: 96372; 99283; J1170

== ENCOUNTER 2019-11-26 15:17 | Emergency (ER) | payer MEDICARE, OTHER ==
[~2019-11-26] VITALS: Ht 170.2 cm; Wt 54.4 kg
[2019-11-26 15:45] VITALS: BP 122/77
--- NOTE | 2019-11-26 15:47 | NUR ---
ED Nurse Note: PATIENT ARRIVED WITH RA61 DUE TO "SHORTNESS OF BREATH WITH LOW BACK PAIN". PATIENT AAO X4, VSS AT THIS TIME
--- NOTE | 2019-11-26 16:05 | NUR ---
ED Nurse Note: BLOOD AND URINE SPECIMENS COLLECTED SENT TO LAB
[2019-11-26 16:07] LABS: APPEARANCE,URINE SLIGHTLY CLOUDY; BILIRUBIN, URINE NEGATIVE (NEGATIVE); GLUCOSE, URINE (UA) NEGATIVE (NEGATIVE); KETONES,URINE NEGATIVE (NEGATIVE); LEUKOCYTE ESTERASE ,URINE 1+ (NEGATIVE); NITRITE,URINE NEGATIVE (NEGATIVE); PH,URINE 7 (4.5-8.0); PROTEIN,URINE NEGATIVE (NEGATIVE); UROBILINOGEN,URINE 4 MG/DL (0.0-1.0)
[2019-11-26 16:08] LABS: COLOR,URINE PALE YELLOW
[2019-11-26 16:13] LABS: EOSINOPHILS % (AUTO) 2.1 % (0.0-3.0); HEMATOCRIT 37.5 % (37.0-47.0); LYMPHOCYTES % (AUTO) 37.7 % (20.0-45.0); MEAN CORPUSCULAR VOLUME 80 FL (80-99); MONOCYTES % (AUTO) 8.7 % (1.0-10.0); NEUTROPHILS % (AUTO) 48.6 % (45.0-75.0); PLATELET COUNT 125 K/UL (150-450); RED BLOOD COUNT 4.69 M/UL (4.20-5.40); RED CELL DISTRIBUTION WIDTH 18.3 % (11.6-14.8)
[2019-11-26 16:34] LABS: ALANINE AMINOTRANSFERASE 18 U/L (12-78); ALBUMIN 3.5 G/DL (3.4-5.0); ALBUMIN/GLOBULIN RATIO 0.9 (1.0-2.7); ALKALINE PHOSPHATASE 104 U/L (46-116); ANION GAP 13 mmol/L (5-15); ASPARTATE AMINO TRANSFERASE 22 U/L (15-37); BILIRUBIN,TOTAL 0.5 MG/DL (0.2-1.0); BLOOD UREA NITROGEN 17 mg/dL (7-18); CALCIUM 9.1 MG/DL (8.5-10.1); CARBON DIOXIDE 20 MMOL/L (21-32); CHLORIDE 110 MMOL/L (98-107); CKMB 1.2 NG/ML (0.0-3.6); CREATINE KINASE 85 U/L (26-308); CREATININE 0.8 MG/DL (0.55-1.30); POTASSIUM 3.7 MMOL/L (3.5-5.1); SODIUM 143 MMOL/L (136-145)
[2019-11-26] MEDS ORDERED: HYDROmorphone 2mg tab ORAL ONE (16:45)
--- NOTE | 2019-11-26 16:54 | Emergency Room Report ---
History of Present Illness General Chief Complaint: General Complaint Source: Patient Present Illness HPI This patient is well-known to [facility]. She has a history of lupus and chronic pain. She was seen here 3 days ago and was transferred to another hospital and she was discharged yesterday from the hospital. The patient has a very high opioid tolerance. She has been on high doses of narc otic pain medications for many many years. She presents today stating that she went to get the pain medication prescription that she was given from the other hospital at the pharmacy and they were unable to fill it today. She states that they said she could get it tomorrow. She is requesting pain medication. She denies any new symptoms. She states this is her same low back pain. She is requesting Dilaudid. Allergies: Coded Allergies: KETOROLAC TROMETHAMINE (Verified Allergy, Severe, Anaphylaxis, 10/22/18) PENICILLINS (Verified Allergy, Severe, Anaphylaxis, 10/22/18) TETRACYCLINE (Verified Allergy, Severe, Anaphylaxis, 10/22/18) HALOPERIDOL LACTATE (Verified Allergy, Intermediate, Anaphylaxis, 10/22/18) ERYTHROMYCIN BASE (Verified Allergy, Mild, 10/22/18) AMPICILLIN (Verified Allergy, Unknown, 10/22/18) ASPIRIN (Verified Allergy, Unknown, 10/22/18) AZITHROMYCIN (Unverified Allergy, Unknown, 04/17/19) IBUPROFEN (Verified Allergy, Unknown, 10/22/18) NAPROXEN (Verified Allergy, Unknown, 10/22/18) Uncoded Allergies: AMPICILLINS (Allergy, Unknown, 09/18/19) PENICILLIN (Allergy, Unknown, 09/08/19) COVID-19 Screening Contact w/high risk pt: No Recent Travel to affected area: No Experienced COVID-19 symptoms?: No COVID-19 symptoms experienced: Shortness of Breath, Cough COVID-19 Testing performed 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 Patient History Past Medical History: see triage record, old chart reviewed, [place], CAD, CHF, COPD, psych hx, other - Lupus Social History: Denies: smoking, alcohol use, drug use Reviewed Nursing Documentation: PMH: Agreed; PSxH: Agreed Nursing Documentation-PMH Past Medical History: No History, Except For Hx Hypertension: No Hx Pacemaker: No Hx Asthma: Yes Hx COPD: Yes Hx Diabetes: No Hx Cancer: No Hx Gastrointestinal Problems: No Hx Dialysis: No Hx Neurological Problems: Yes - LUPUS Hx Cerebrovascular Accident: Yes - stroke Hx Seizures: No Hx Weakness: Yes Hx Neurologic Surgery: No Hx Brain Shunt: No Review of Systems All Other Systems: negative except mentioned in HPI Physical Exam Vital Signs Date Time Temp Pulse Resp B/P (MAP) Pulse Ox O2 Delivery O2 Flow Rate FiO2 11/26/19 15:14 99.1 101 16 122/77 (92) 98 Room Air Sp02 EP Interpretation: reviewed, normal General Appearance: no apparent distress, alert, GCS 15, non-toxic Head: normocephalic, atraumatic ENT: hearing grossly normal, no angioedema, normal voice Neck: full range of motion, supple/symm/no masses Respiratory: no respiratory distress, no retraction, no accessory muscle use, speaking full sentences Rectal: deferred Musculoskeletal: back normal, other - At baseline, chronic pain. Neurologic: alert, motor strength/tone normal, oriented x3, sensory intact, responsive, speech normal Psychiatric: judgement/insight normal, memory normal, mood/affect normal, no s uicidal/homicidal ideation Skin: other - chronic dermatitis/hypopigmentation. Medical Decision Making Diagnostic Impression: Primary Impression: Chronic pain ER Course This patient is well-known to [place] and [facility]. She has lupus and chronic pain and also unfortunately has significant narcotic seeking behavior and opioid dependence. She presents repeatedly to the emergency department has been educated extensively that she needs to be undergoing all of her pain management through a spray i painter and not the emergency department. She is refusing all treatment except pain medication. This is typical behavior for this patient. She was given oral pain medication. I will not be giving this patient injectable narcotics for her chronic pain. She is aware of this and has been educated extensively on this at previous visits. She was educated to follow-up with a spray i painter. She requires too high of narcotic medications and needs to be on a special pain management pathway with other modes of pain management other than narcotics. The patient refused all labs. She did undergo EKG which showed no significant changes from previous. Laboratory Tests Test 11/26/19 15:48 11/26/19 15:49 White Blood Count 5.0 K/UL (4.8-10.8) Red Blood Count 4.69 M/UL (4.20-5.40) Hemoglobin 12.0 G/DL (12.0-16.0) Hematocrit 37.5 % (37.0-47.0) Mean Corpuscular Volume 80 FL (80-99) Mean Corpuscular Hemoglobin 25.5 PG (27.0-31.0) L Mean Corpuscular Hemoglobin Concent 31.9 G/DL (32.0-36.0) L Red Cell Distribution Width 18.3 % (11.6-14.8) H Platelet Count 125 K/UL (150-450) L Mean Platelet Volume 6.8 FL (6.5-10.1) Neutrophils (%) (Auto) 48.6 % (45.0-75.0) Lymphocytes (%) (Auto) 37.7 % (20.0-45.0) Monocytes (%) (Auto) 8.7 % (1.0-10.0) Eosinophils (%) (Auto) 2.1 % (0.0-3.0) Basophils (%) (Auto) 3.0 % (0.0-2.0) H Sodium Level 143 MMOL/L (136-145) Potassium Level 3.7 MMOL/L (3.5-5.1) Chloride Level 110 MMOL/L (98-107) H Carbon Dioxide Level 20 MMOL/L (21-32) L Anion Gap 13 mmol/L (5-15) Blood Urea Nitrogen 17 mg/dL (7-18) Creatinine 0.8 MG/DL (0.55-1.30) Estimated Glomerular Filtration Rate > 60 mL/min (>60) Glucose Level 116 MG/DL (74-106) H Calcium Level 9.1 MG/DL (8.5-10.1) Total Bilirubin 0.5 MG/DL (0.2-1.0) Aspartate Amino Transferase (AST) 22 U/L (15-37) Alanine Aminotransferase (ALT) 18 U/L (12-78) Alkaline Phosphatase 104 U/L (46-116) Total Creatine Kinase 85 U/L (26-308) Creatine Kinase MB 1.2 NG/ML (0.0-3.6) Creatine Kinase MB Relative Index 1.4 Troponin I 0.005 ng/mL (0.000-0.056) Total Protein 7.2 G/DL (6.4-8.2) Albumin 3.5 G/DL (3.4-5.0) Globulin 3.7 g/dL Albumin/Globulin Ratio 0.9 (1.0-2.7) L Urine Color Pale yellow Urine Appearance Slightly cloudy Urine pH 7 (4.5-8.0) Urine Specific [place] 1.005 (1.005-1.035) Urine Protein Negative (NEGATIVE) Urine Glucose (UA) Negative (NEGATIVE) Urine Ketones Negative (NEGATIVE) Urine Blood Negative (NEGATIVE) Urine Nitrite Negative (NEGATIVE) Urine Bilirubin Negative (NEGATIVE) Urine Urobilinogen 4 MG/DL (0.0-1.0) H Urine Leukocyte Esterase 1+ (NEGATIVE) H Urine RBC 0-2 /HPF (0 - 2) Urine WBC 0-2 /HPF (0 - 2) Urine Squamous Epithelial Cells Moderate /LPF (NONE/OCC) H Urine Bacteria Occasional /HPF (NONE) EKG Diagnostic Results Rate: normal Rhythm: NSR ST Segments: no acute changes Other Impression LVH Rhythm Strip Diag. Results EP Interpretation: yes Rate: 80's Rhythm: NSR, no PVC's, no ectopy Chest X-Ray Diagnostic Results Chest X-Ray Diagnostic Results : Chest X-Ray Ordered: Yes # of Views/Limited/Complete: 1 View Indication: Other EP Interpretation: Yes Interpretation: no consolidation, no effusion, no pneumothorax, no acute cardiopulmonary disease Impression: No acute disease Electronically Signed by: Rachel Shirley DO Last Vital Signs Date Time Temp Pulse Resp B/P (MAP) Pulse Ox O2 Delivery O2 Flow Rate FiO2 11/26/19 15:45 101 16 Room Air 11/26/19 15:45 99.1 122/77 98 Status: improved Disposition: HOME, SELF-CARE Condition: Improved Referrals: NOT CHOSEN IPA/,REFERRING (PCP) Rachel Shirley DO Nov 26, 2019 16:54
--- NOTE | 2019-11-26 16:59 | Diagnostic Imaging Report ---
Indication: Reason For Exam: SOB Technique: Single AP view of the chest. Comparison: Chest radiograph dated 10/17/2019 Findings: The cardiomediastinal silhouette is unchanged in appearance, with persistent cardiomegaly. Redemonstration of mild pulmonary vessel congestion. Streaky right basilar airspace opacity likely represents chronic atelectasis. No new airspace consolidation. No pneumothorax or pleural effusion. Suspected compression fracture of a midthoracic vertebral body. IMPRESSION: 1. Pulmonary vascular congestion without new airspace consolidation. 2. Suspected mid thoracic vertebral body compression fracture, incompletely evaluated on single frontal view.
[2019-11-26 17:04] VITALS: BP 122/77
--- NOTE | 2019-11-26 17:05 | NUR ---
ED Nurse Note: Dilaudid 2mg was taken from pharmacy, 1mg was administered and 1mg was wastet with witness, charge nurse Becky.
--- NOTE | 2019-11-26 17:08 | NUR ---
ED Nurse Note: Pt cleared by health care Provider for discharge. DC instructions/prescription was given and explained to pt and verbalized understanding of teachings. All medical deviecs such as ID band removed. Pt is AAO x4, ambulatory and left with all personal belongings.
--- NOTE | 2019-12-04 16:09 | Cardiology Report ---
APPROVED REPORT EKG Measurement Heart [id number] <Conclusion> Normal sinus rhythm Moderate voltage criteria for LVH, may be normal variant T wave abnormality, consider inferior ischemia Abnormal ECG
== END 2019-11-26 17:08 | disposition home or self-care (01) ==
LOC: EDSEX → EDBD 15:17 → EMR 15:37
DX: G89.29 Other chronic pain (principal); L30.9 Dermatitis, unspecified; Z88.0 Allergy status to penicillin; Z88.6 Allergy status to analgesic agent; I25.2 Old myocardial infarction; J44.9 Chronic obstructive pulmonary disease, unspecified; I25.10 Atherosclerotic heart disease of native coronary artery without angina pectoris; I50.9 Heart failure, unspecified; Z86.73 Personal history of transient ischemic attack (TIA), and cerebral infarction without residual deficits
CPT/HCPCS: 36415; 71045; 80053; 81003; 82550; 82553; 84484; 85025; 93005; 99283

== ENCOUNTER 2019-11-26 17:46 | Emergency (ER) | payer MEDICARE, OTHER ==
[~2019-11-26] VITALS: Ht 165.1 cm; Wt 54.4 kg
[2019-11-26 18:03] VITALS: BP 133/87
--- NOTE | 2019-11-26 18:17 | Emergency Room Report ---
Physical Exam Vital Signs Date Time Temp Pulse Resp B/P (MAP) Pulse Ox O2 Delivery O2 Flow Rate FiO2 11/26/19 17:53 98.2 76 14 133/87 (102) 97 Room Air Medical Decision Making Diagnostic Impression: Primary Impression: Chronic pain ER Course See my previous note. The patient checked back in the emergency department because she was given transportation to her home. She was given a taxi voucher and sent home. I declined further narcotic pain medication. Last Vital Signs Date Time Temp Pulse Resp B/P (MAP) Pulse Ox O2 Delivery O2 Flow Rate FiO2 11/26/19 18:03 98.2 14 133/87 97 Room Air 11/26/19 17:53 76 Status: improved Disposition: HOME, SELF-CARE Condition: Improved Rachel Shirley DO Nov 26, 2019 18:17
[2019-11-26 18:30] VITALS: BP 132/77
== END 2019-11-26 18:30 | disposition home or self-care (01) ==
LOC: EDSEX → EMR 18:20
DX: G89.29 Other chronic pain (principal)
CPT/HCPCS: 99281

== ENCOUNTER 2019-12-02 10:10 | Emergency (ER) | payer MEDICARE, OTHER ==
[~2019-12-02] VITALS: Ht 162.6 cm; Wt 59.0 kg
[2019-12-02 10:30] VITALS: BP 128/69
[2019-12-02] MEDS ORDERED: HYDROcodone/Acetamin 5/325 tab ORAL ONE (11:45)
--- NOTE | 2019-12-02 12:14 | Emergency Room Report ---
History of Present Illness General Chief Complaint: Multiple Trauma/Fall Source: Patient Present Illness HPI Patient is a 69-year-old female presents for increased right-sided pain after recent fall. Prior history of lupus. Multiple prior ER visits for pain control. Had multiple known medical allergies. Had no recent loss of consciousness. Reports having worsening pain from lupus. Had recent hospitalization after ER visit here. Had been ambulatory after the fall. Reports having pain to the right side of her body. Denies any fever. Denies any weakness. Allergies: Coded Allergies: KETOROLAC TROMETHAMINE (Verified Allergy, Severe, Anaphylaxis, 10/22/18) PENICILLINS (Verified Allergy, Severe, Anaphylaxis, 10/22/18) TETRACYCLINE (Verified Allergy, Severe, Anaphylaxis, 10/22/18) HALOPERIDOL LACTATE (Verified Allergy, Intermediate, Anaphylaxis, 10/22/18) ERYTHROMYCIN BASE (Verified Allergy, Mild, 10/22/18) AMPICILLIN (Verified Allergy, Unknown, 10/22/18) ASPIRIN (Verified Allergy, Unknown, 10/22/18) AZITHROMYCIN (Unverified Allergy, Unknown, 04/17/19) IBUPROFEN (Verified Allergy, Unknown, 10/22/18) NAPROXEN (Verified Allergy, Unknown, 10/22/18) Uncoded Allergies: AMPICILLINS (Allergy, Unknown, 09/18/19) PENICILLIN (Allergy, Unknown, 09/08/19) COVID-19 Screening Contact w/high risk pt: No Recent Travel to affected area: No Experienced COVID-19 symptoms?: No COVID-19 symptoms experienced: Shortness of Breath, Cough COVID-19 Testing performed TERRITORY MANAGER: No Patient History Past Medical History: see triage record Reviewed Nursing Documentation: PMH: Agreed; PSxH: Agreed Nursing Documentation-PMH Past Medical History: No History, Except For Hx Hypertension: No Hx Pacemaker: No Hx Asthma: Yes Hx COPD: Yes Hx Diabetes: No Hx Cancer: No Hx Gastrointestinal Problems: No Hx Dialysis: No Hx Neurological Problems: Yes - LUPUS Hx Cerebrovascular Accident: Yes - stroke Hx Seizures: No Hx Weakness: Yes Hx Neurologic Surgery: No Hx Brain Shunt: No Review of Systems All Other Systems: negative except mentioned in HPI Physical Exam Vital Signs Date Time Temp Pulse Resp B/P (MAP) Pulse Ox O2 Delivery O2 Flow Rate FiO2 12/02/19 10:00 99.5 80 18 121/67 (85) 97 Room Air 12/02/19 10:30 99 General Appearance: alert, GCS 15, Chronically Ill Head: normocephalic, atraumatic ENT: hearing grossly normal, normal voice Neck: full range of motion, supple Respiratory: no respiratory distress, speaking full sentences, wheezing Cardiovascular #1: normal inspection, no edema Musculoskeletal: normal inspection, no calf tenderness Neurologic: alert, motor strength/tone normal, telecommunications equipment installer III-XII nml as tested, oriented x3, sensory intact, normal gait Psychiatric: mood/affect normal Skin: no rash Medical Decision Making Diagnostic Impression: Primary Impression: Chronic pain ER Course Patient presented for right-sided pain. Differential diagnosis include was not limited to COPD, pneumonia, fracture among others. Patient has a benign exam and does not appear to require any imaging patient has had multiple prior visits for similar type symptoms. She was given breathing treatment.. Chest x-ray showed no evidence of acute infiltrate. Patient is given pain medications emergency department. Patient has had multiple visits recently for pain. I had previously sent her to the hospital for further evaluation and treatment of pain. This appears to be related to lupus. The patient is advised to follow up with primary care doctor in 1-2 days. Patient is advised to return if any worsening condition or if any changes in status that are concerning. This report is dictated with [employer] electric spot welder software which may oc casionally lead to discrepancies related to use of this software. Last Vital Signs Date Time Temp Pulse Resp B/P (MAP) Pulse Ox O2 Delivery O2 Flow Rate FiO2 12/02/19 10:30 99.5 82 17 128/69 99 Room Air 12/02/19 10:30 99 Status: improved Disposition: HOME, SELF-CARE Condition: Stable Scripts Hydrocodone Bit/Acetaminophen 5-325* (NORCO 5-325 TABLET*) 1 Each Tablet 1 TAB ORAL Q6H PRN for FOR PAIN, #10 TAB 0 Refills Prov: Karthikeyan Mueller MD 12/02/19 Referrals: NOT CHOSEN IPA/,REFERRING (PCP) Karthikeyan Mueller MD Dec 02, 2019 12:14
[2019-12-02] MEDS ORDERED: Albuterol 90mcg Inhaler 8gm INH ONE (12:15)
[2019-12-02] MEDS ORDERED: NORCO 5-325 TA1 EAC1 ORAL (13:22)
[2019-12-02 13:25] VITALS: BP 135/70
--- NOTE | 2019-12-02 16:49 | Diagnostic Imaging Report ---
Indication: Reason For Exam: SOB Technique: One view of the chest, 2 views of the right ribs Comparison: 11/26/2019 chest radiograph only Findings: There is bilateral hyperinflation, and lucencies in the right upper lobe likely reflecting bullous changes. There is some scarring or atelectasis at the right lung base. The bones are osteoporotic. No definite acute fractures. No pneumothorax Impression: No acute bony trauma No evidence of acute rib fracture or pneumothorax
== END 2019-12-02 13:25 | disposition home or self-care (01) ==
LOC: EDBD 10:10 → EMR 10:40
DX: G89.29 Other chronic pain (principal); Z88.0 Allergy status to penicillin; Z88.6 Allergy status to analgesic agent; Z88.8 Allergy status to other drugs, medicaments and biological substances; J44.9 Chronic obstructive pulmonary disease, unspecified; Z86.73 Personal history of transient ischemic attack (TIA), and cerebral infarction without residual deficits
CPT/HCPCS: 99283

== ENCOUNTER 2019-12-04 09:43 | Emergency (ER) | payer MEDICARE, OTHER ==
[~2019-12-04] VITALS: Ht 165.1 cm; Wt 54.4 kg
--- NOTE | 2019-12-04 09:55 | NUR ---
ED Nurse Note: Patient from home and was brought in by [facility] 26 due to back pain that radiates to her chest aggravated this morning. Patient has histry of COPD and has chronic coughing. Denies fever and sats 97 % in room air. Patient is AAO x4, ambulates with her walker with no respiratory distress.
[2019-12-04 09:56] VITALS: BP 154/79
--- NOTE | 2019-12-04 09:58 | NUR ---
ED Nurse Note: EMS also reported that NTG 1 spray provided to patient en route.
[2019-12-04] MEDS ORDERED: Albuterol/Ipratropium 3ml neb HHN ONE (10:00)
[2019-12-04] MEDS ORDERED: Solu-MEDROL 125mg Inj IVP ONE (10:00)
--- NOTE | 2019-12-04 10:10 | NUR ---
ED Nurse Note: Noted productive coughing and audible wheezing. ERMD at the bed side.
--- NOTE | 2019-12-04 10:15 | NUR ---
ED Nurse Note: Tristen payroll technician at the bed side for CXR.
[2019-12-04 10:23] LABS: BASOPHILS % (AUTO) 3.9 % (0.0-2.0); EOSINOPHILS % (AUTO) 1.6 % (0.0-3.0); HEMATOCRIT 35.1 % (37.0-47.0); HEMOGLOBIN 11.2 G/DL (12.0-16.0); LYMPHOCYTES % (AUTO) 28.3 % (20.0-45.0); MEAN CORPUSCULAR VOLUME 80 FL (80-99); MONOCYTES % (AUTO) 14.3 % (1.0-10.0); NEUTROPHILS % (AUTO) 51.9 % (45.0-75.0); PLATELET COUNT 254 K/UL (150-450); RED CELL DISTRIBUTION WIDTH 17.7 % (11.6-14.8); WHITE BLOOD COUNT 4.9 K/UL (4.8-10.8)
[2019-12-04 10:32] LABS: ANION GAP 13 mmol/L (5-15); BLOOD UREA NITROGEN 11 mg/dL (7-18); CALCIUM 8.9 MG/DL (8.5-10.1); CARBON DIOXIDE 23 MMOL/L (21-32); CHLORIDE 107 MMOL/L (98-107); CREATININE 0.7 MG/DL (0.55-1.30); POTASSIUM 3.2 MMOL/L (3.5-5.1); SODIUM 143 MMOL/L (136-145)
[2019-12-04 10:43] LABS: ALANINE AMINOTRANSFERASE 24 U/L (12-78); ALBUMIN 3.2 G/DL (3.4-5.0); ALBUMIN/GLOBULIN RATIO 0.9 (1.0-2.7); ALKALINE PHOSPHATASE 84 U/L (46-116); ASPARTATE AMINO TRANSFERASE 41 U/L (15-37); BILIRUBIN,TOTAL 0.6 MG/DL (0.2-1.0)
--- NOTE | 2019-12-04 11:16 | NUR ---
ED Nurse Note: Patient signed and consented to be transferred to [facility].
[2019-12-04] MEDS ORDERED: Morphine Sulfate 4mg/ml Inj (IV USE ONLY) IVP ONE (11:30)
--- NOTE | 2019-12-04 11:36 | Emergency Room Report ---
History of Present Illness General Chief Complaint: Chest Pain Source: Patient Present Illness HPI Patient is a 69-year-old female who presents for increased shortness of breath and chest tightness. Prior history of COPD as well as lupus. Had a prior history of chronic pain. Reports having pain to her back. Had previous history of recent hospitalization. Nonproductive cough. Does not use oxygen at home. Patient is chronically blind. Allergies: Coded Allergies: KETOROLAC TROMETHAMINE (Verified Allergy, Severe, Anaphylaxis, 10/22/18) PENICILLINS (Verified Allergy, Severe, Anaphylaxis, 10/22/18) TETRACYCLINE (Verified Allergy, Severe, Anaphylaxis, 10/22/18) HALOPERIDOL LACTATE (Verified Allergy, Intermediate, Anaphylaxis, 10/22/18) ERYTHROMYCIN BASE (Verified Allergy, Mild, 10/22/18) AMPICILLIN (Verified Allergy, Unknown, 10/22/18) ASPIRIN (Verified Allergy, Unknown, 10/22/18) AZITHROMYCIN (Unverified Allergy, Unknown, 04/17/19) IBUPROFEN (Verified Allergy, Unknown, 10/22/18) NAPROXEN (Verified Allergy, Unknown, 10/22/18) Uncoded Allergies: AMPICILLINS (Allergy, Unknown, 09/18/19) PENICILLIN (Allergy, Unknown, 09/08/19) COVID-19 Screening Contact w/high risk pt: No Recent Travel to affected area: No Experienced COVID-19 symptoms?: Yes COVID-19 symptoms experienced: Shortness of Breath, Cough COVID-19 Testing performed BRUSH HOLDER INSPECTOR: No Patient History Past Medical History: see triage record Last Menstrual Period: na Reviewed Nursing Documentation: PMH: Agreed; PSxH: Agreed Nursing Documentation-PMH Past Medical History: No History, Except For Hx Hypertension: No Hx Pacemaker: No Hx Asthma: Yes Hx COPD: Yes Hx Diabetes: No Hx Cancer: No Hx Gastrointestinal Problems: No Hx Dialysis: No Hx Neurological Problems: Yes - LUPUS Hx Cerebrovascular Accident: Yes - stroke Hx Seizures: No Hx Weakness: Yes Hx Neurologic Surgery: No Hx Brain Shunt: No Review of Systems All Other Systems: negative except mentioned in HPI Physical Exam Vital Signs Date Time Temp Pulse Resp B/P (MAP) Pulse Ox O2 Delivery O2 Flow Rate FiO2 12/04/19 09:45 98.2 90 18 139/78 (98) 98 Room Air 12/04/19 11:04 21 General Appearance: alert, GCS 15, Chronically Ill ENT: other - Malar rash Neck: limited range of motion Respiratory: accessory muscle use, speaking full sentences, wheezing Cardiovascular #1: normal peripheral pulses, regular rate, rhythm Gastrointestinal: normal inspection Musculoskeletal: moves extm spontaneously Neurologic: alert, motor strength/tone normal, quality assurance test program manager III-XII nml as tested, oriented x3 Skin: other - Patient with facial rash chronic Medical Decision Making Diagnostic Impression: Primary Impression: COPD exacerbation Additional Impression: Opioid dependence ER Course Presented for shortness of breath and back pain. Differential diagnosis include was not limited to pneumonia, bronchitis, COPD exacerbation, chronic pain exacerbation among others. Because of complexity of patient's case laboratory tests and imaging studies were ordered. EKG interpreted by me showed normal sinus rhythm with a rate of [address] or T wave changes. Coronavirus testing was sent. Patient's laboratory testing showed slightly diminished white blood count. patient was given breathing treatments as well as IV steroids.She started on supplemental oxygen. Dr. Hema Petty was contacted for transfer to [facility] and agreed to accept the patient Labs Test 12/04/19 10:05 White Blood Count 4.9 K/UL (4.8-10.8) Red Blood Count 4.40 M/UL (4.20-5.40) Hemoglobin 11.2 G/DL (12.0-16.0) Hematocrit 35.1 % (37.0-47.0) Mean Corpuscular Volume 80 FL (80-99) Mean Corpuscular Hemoglobin 25.3 PG (27.0-31.0) Mean Corpuscular Hemoglobin Concent 31.8 G/DL (32.0-36.0) Red Cell Distribution Width 17.7 % (11.6-14.8) Platelet Count 254 K/UL (150-450) Mean Platelet Volume 5.4 FL (6.5-10.1) Neutrophils (%) (Auto) 51.9 % (45.0-75.0) Lymphocytes (%) (Auto) 28.3 % (20.0-45.0) Monocytes (%) (Auto) 14.3 % (1.0-10.0) Eosinophils (%) (Auto) 1.6 % (0.0-3.0) Basophils (%) (Auto) 3.9 % (0.0-2.0) Sodium Level 143 MMOL/L (136-145) Potassium Level 3.2 MMOL/L (3.5-5.1) Chloride Level 107 MMOL/L (98-107) Carbon Dioxide Level 23 MMOL/L (21-32) Anion Gap 13 mmol/L (5-15) Blood Urea Nitrogen 11 mg/dL (7-18) Creatinine 0.7 MG/DL (0.55-1.30) Estimat Glomerular Filtration Rate > 60 mL/min (>60) Glucose Level 100 MG/DL (74-106) Calcium Level 8.9 MG/DL (8.5-10.1) Total Bilirubin 0.6 MG/DL (0.2-1.0) Aspartate Amino Transf (AST/SGOT) 41 U/L (15-37) Alanine Aminotransferase (ALT/SGPT) 24 U/L (12-78) Alkaline Phosphatase 84 U/L (46-116) Troponin I 0.017 ng/mL (0.000-0.056) C-Reactive Protein, Quantitative 1.1 mg/dL (0.00-0.90) Pro-B-Type Natriuretic Peptide 215 pg/mL (0-125) Total Protein 6.9 G/DL (6.4-8.2) Albumin 3.2 G/DL (3.4-5.0) Globulin 3.7 g/dL Albumin/Globulin Ratio 0.9 (1.0-2.7) EKG Diagnostic Results Rate: normal Rhythm: NSR ST Segments: no acute changes Last Vital Signs Date Time Temp Pulse Resp B/P (MAP) Pulse Ox O2 Delivery O2 Flow Rate FiO2 12/04/19 11:04 69 16 99 Room Air 21 71 22 98 12/04/19 09:56 98.2 154/79 Status: improved Disposition: SHORT-TERM HOSP Condition: Stable Referrals: NOT CHOSEN IPA/,REFERRING (PCP) Karthikeyan Mueller MD Dec 04, 2019 11:36
--- NOTE | 2019-12-04 12:01 | NUR ---
ED Nurse Note: Report given to Mo GUTIERREZ of [facility]. Pt transferred to [facility] via [facility] with all her belongings including her walker.
[2019-12-04 12:02] VITALS: BP 157/83
--- NOTE | 2019-12-04 20:45 | Diagnostic Imaging Report ---
Indication: Shortness of breath Technique: One view of the chest Comparison: 11/26/2019 Findings: No acute infiltrates, effusions, or congestion. Tortuous calcified aorta. Normal heart size. Upper mediastinum unremarkable. The right upper lung is hyperinflated. No significant change Impression: No acute process. COPD changes
== END 2019-12-04 12:02 | disposition short-term general hospital (02) ==
LOC: EDBD 09:43 → EMR 10:00
DX: J44.1 Chronic obstructive pulmonary disease with (acute) exacerbation (principal); F11.20 Opioid dependence, uncomplicated; Z86.73 Personal history of transient ischemic attack (TIA), and cerebral infarction without residual deficits; Z88.0 Allergy status to penicillin; Z88.1 Allergy status to other antibiotic agents; Z88.6 Allergy status to analgesic agent; Z88.8 Allergy status to other drugs, medicaments and biological substances; Z87.39 Personal history of other diseases of the musculoskeletal system and connective tissue; Z79.899 Other long term (current) drug therapy
CPT/HCPCS: 36415; 71045; 80053; 83880; 84484; 85025; 86140; 93005; 94640; 96374; 96375; 99284; J2270; J2930; U0002; J7620

== ENCOUNTER → 2019-12-07 | Emergency (ER) | payer MEDICARE, OTHER ==
[~2019-12-07] VITALS: Ht 152.4 cm; Wt 49.9 kg
[~2019-12-07] MED LIST changes: +HYDROmorphone 1mg/ml Carpuject IVP ONE
--- NOTE | 2019-12-07 09:14 | Emergency Room Report ---
History of Present Illness General Chief Complaint: Abdominal Pain Source: Patient, EMS Present Illness HPI Patient is a 69-year-old female past medical history of lupus, glaucoma and chronic pain who presents to the ER complaining of abdominal pain and back pain. Patient was brought in by home by EMS. Patient states that her pain was so severe that it caused her to fall to the ground. She is unclear if she hit her head. She denies any chest pain or shortness of breath. She denies any focal weakness. She denies any fever or chills. Patient states that this is her chronic pain that has gotten worse. Patient is well-known to our emergency room as well as to EMS for the same complaints. Allergies: Coded Allergies: KETOROLAC TROMETHAMINE (Verified Allergy, Severe, Anaphylaxis, 10/22/18) PENICILLINS (Verified Allergy, Severe, Anaphylaxis, 10/22/18) TETRACYCLINE (Verified Allergy, Severe, Anaphylaxis, 10/22/18) HALOPERIDOL LACTATE (Verified Allergy, Intermediate, Anaphylaxis, 10/22/18) ERYTHROMYCIN BASE (Verified Allergy, Mild, 10/22/18) AMPICILLIN (Verified Allergy, Unknown, 10/22/18) ASPIRIN (Verified Allergy, Unknown, 10/22/18) AZITHROMYCIN (Unverified Allergy, Unknown, 04/17/19) IBUPROFEN (Verified Allergy, Unknown, 10/22/18) NAPROXEN (Verified Allergy, Unknown, 10/22/18) Uncoded Allergies: AMPICILLINS (Allergy, Unknown, 09/18/19) PENICILLIN (Allergy, Unknown, 09/08/19) COVID-19 Screening Contact w/high risk pt: No Recent Travel to affected area: No Experienced COVID-19 symptoms?: No COVID-19 symptoms experienced: Shortness of Breath, Cough COVID-19 Testing performed WATER CONTROL SUPERVISOR: No Patient History Reviewed Nursing Documentation: PMH: Agreed; PSxH: Agreed Nursing Documentation-PMH Hx Hypertension: No Hx Pacemaker: No Hx Asthma: Yes Hx COPD: Yes Hx Diabetes: No Hx Cancer: No Hx Gastrointestinal Problems: No Hx Dialysis: No Hx Neurological Problems: Yes - LUPUS Hx Cerebrovascular Accident: Yes - stroke Hx Seizures: No Hx Weakness: Yes Hx Neurologic Surgery: No Hx Brain Shunt: No Review of Systems All Other Systems: negative except mentioned in HPI Physical Exam Vital Signs Date Time Temp Pulse Resp B/P (MAP) Pulse Ox O2 Delivery O2 Flow Rate FiO2 10/10/20 08:58 97.0 96 19 168/98 (121) 94 Nasal Cannula 2.0 Sp02 EP Interpretation: reviewed, normal General Appearance: no apparent distress, alert, GCS 15, Chronically Ill Head: normocephalic, atraumatic Eyes: bilateral eye EOMI ENT: hearing grossly normal, normal pharynx, no angioedema, normal voice Neck: full range of motion, supple/symm/no masses Respiratory: no accessory muscle use, respiratory distress Cardiovascular #1: regular rate, rhythm, no edema Gastrointestinal: soft, no guarding, no rebound, other - Epigastric and periumbilical tenderness to palpation Rectal: deferred Genitourinary: no CVA tenderness Musculoskeletal: other - Lumbar tenderness to palpation with no step-offs, no saddle anesthesia Neurologic: resident assistant III-XII nml as tested, oriented x3 Psychiatric: no suicidal/homicidal ideation Skin: other - Alopecia Lymphatic: no adenopathy Medical Decision Making ER Course Has no elevated white blood cell count. Her labs demonstrate no significant acute abnormalities. She is afebrile. CT abdomen pelvis demonstrates evidence for acute appendicitis without perforation or abscess. There is a note that the appearance is similar when compared with November 20, 2019. I have paged Dr. Hope who is on-call for general surgery. He will come evaluate the candy ent. At 11:50 AM patient was evaluated by Dr. Hope. He states that this is unlikely to be appendicitis but would like to admit the patient for observation. I spoke with Dr. Petty. We discussed the patient and he will accept the transfer to [facility]. This occurred at 12:53 PM Laboratory Tests Test 12/07/19 09:30 12/07/19 10:33 White Blood Count 5.1 K/UL (4.8-10.8) Red Blood Count 4.90 M/UL (4.20-5.40) Hemoglobin 12.8 G/DL (12.0-16.0) Hematocrit 39.3 % (37.0-47.0) Mean Corpuscular Volume 80 FL (80-99) Mean Corpuscular Hemoglobin 26.1 PG (27.0-31.0) L Mean Corpuscular Hemoglobin Concent 32.5 G/DL (32.0-36.0) Red Cell Distribution Width 18.1 % (11.6-14.8) H Platelet Count 259 K/UL (150-450) Mean Platelet Volume 5.9 FL (6.5-10.1) L Neutrophils (%) (Auto) 55.8 % (45.0-75.0) Lymphocytes (%) (Auto) 26.8 % (20.0-45.0) Monocytes (%) (Auto) 11.2 % (1.0-10.0) H Eosinophils (%) (Auto) 1.3 % (0.0-3.0) Basophils (%) (Auto) 4.9 % (0.0-2.0) H Prothrombin Time 12.2 SEC (9.30-11.50) H Prothrombin Time INR 1.1 (0.9-1.1) Activated Partial Thromboplast Time 26 SEC (23-33) Sodium Level 138 MMOL/L (136-145) Potassium Level 3.7 MMOL/L (3.5-5.1) Chloride Level 105 MMOL/L (98-107) Carbon Dioxide Level 26 MMOL/L (21-32) Anion Gap 7 mmol/L (5-15) Blood Urea Nitrogen 9 mg/dL (7-18) Creatinine 0.8 MG/DL (0.55-1.30) Estimated Glomerular Filtration Rate > 60 mL/min (>60) Glucose Level 98 MG/DL (74-106) Calcium Level 8.9 MG/DL (8.5-10.1) Magnesium Level 1.8 MG/DL (1.8-2.4) Total Bilirubin 0.6 MG/DL (0.2-1.0) Aspartate Amino Transferase (AST) 21 U/L (15-37) Alanine Aminotransferase (ALT) 17 U/L (12-78) Alkaline Phosphatase 89 U/L (46-116) Troponin I 0.004 ng/mL (0.000-0.056) Total Protein 6.7 G/DL (6.4-8.2) Albumin 3.4 G/DL (3.4-5.0) Globulin 3.3 g/dL Albumin/Globulin Ratio 1.0 (1.0-2.7) Lipase 167 U/L (73-393) Urine Color Pale yellow Urine Appearance Slightly cloudy Urine pH 7 (4.5-8.0) Urine Specific [place] 1.005 (1.005-1.035) Urine Protein Negative (NEGATIVE) Urine Glucose (UA) Negative (NEGATIVE) Urine Ketones Negative (NEGATIVE) Urine Blood 1+ (NEGATIVE) H Urine Nitrite Negative (NEGATIVE) Urine Bilirubin Negative (NEGATIVE) Urine Urobilinogen 1 MG/DL (0.0-1.0) H Urine Leukocyte Esterase 1+ (NEGATIVE) H Urine RBC 0-2 /HPF (0 - 2) Urine WBC 5-10 /HPF (0 - 2) H Urine Squamous Epithelial Cells Many /LPF (NONE/OCC) H Urine Bacteria Few /HPF (NONE) EKG Diagnostic Results Troponin ordered: Yes When was troponin ordered?: Dec 07, 2019 EKG Time: 09:10 EP Interpretation: Odilia Ocasio MD Rate: normal - 84 bpm Rhythm: NSR ST Segments: no acute changes Other Impression LVH ASA given to the pt in ED: No Rhythm Strip Diag. Results Rhythm Strip Time: 09:14 EP Interpretation: yes - Odilia Ocasio MD Rate: 89 bpm Rhythm: NSR, no PVC's, no ectopy Chest X-Ray Diagnostic Results Chest X-Ray Diagnostic Results : Chest X-Ray Ordered: Yes # of Views/Limited/Complete: 1 View Indication: Other - pain EP Interpretation: Yes Interpretation: no consolidation, no effusion, no pneumothorax, other - Cardiomegaly Impression: Other - Cardiomegaly Electronically Signed by: Odilia Ocasio MD Last Vital Signs Date Time Temp Pulse Resp B/P (MAP) Pulse Ox O2 Delivery O2 Flow Rate FiO2 12/07/19 08:58 97.0 96 19 168/98 (121) 94 Nasal Cannula 2.0 Disposition: PLACE IN OBSERVATION - Transfer Condition: Critical Physician Consult: Dr. Petty at 1254 pm Additional Instructions: Please note that this report is being documented using [employer] technology. This can lead to erroneous entry secondary to incorrect interpretation by the dictating instrument. Odilia Ocasio M.D. Dec 07, 2019 09:14
[2019-12-07 09:15] VITALS: BP 168/98
--- NOTE | 2019-12-07 09:20 | NUR ---
ED Nurse Note: Pt was brought in by ambulance from home d/t chronic back pain and abdominal pain that got worsen today. Pt is AOx4, cooperative to care, denies any nausea/vomiting/diarrhea today. Pt's VSS, on RA, afebrile on triage. Pt was placed on bed and gown; hooked to professor of geography, walker at bedside.
--- NOTE | 2019-12-07 09:32 | NUR ---
ED Nurse Note: x-ray at bedside.
--- NOTE | 2019-12-07 09:41 | NUR ---
ED Nurse Note: pt was taken to CT
[2019-12-07 09:51] LABS: BASOPHILS % (AUTO) 4.9 % (0.0-2.0); EOSINOPHILS % (AUTO) 1.3 % (0.0-3.0); HEMATOCRIT 39.3 % (37.0-47.0); HEMOGLOBIN 12.8 G/DL (12.0-16.0); LYMPHOCYTES % (AUTO) 26.8 % (20.0-45.0); MEAN CORPUSCULAR VOLUME 80 FL (80-99); MONOCYTES % (AUTO) 11.2 % (1.0-10.0); NEUTROPHILS % (AUTO) 55.8 % (45.0-75.0); PLATELET COUNT 259 K/UL (150-450); RED CELL DISTRIBUTION WIDTH 18.1 % (11.6-14.8); WHITE BLOOD COUNT 5.1 K/UL (4.8-10.8)
--- NOTE | 2019-12-07 09:56 | NUR ---
ED Nurse Note: pt returned from CT
[2019-12-07 09:58] LABS: INR 1.1 (0.9-1.1)
[2019-12-07 10:00] LABS: ANION GAP 7 mmol/L (5-15); BLOOD UREA NITROGEN 9 mg/dL (7-18); CALCIUM 8.9 MG/DL (8.5-10.1); CARBON DIOXIDE 26 MMOL/L (21-32); CHLORIDE 105 MMOL/L (98-107); CREATININE 0.8 MG/DL (0.55-1.30); POTASSIUM 3.7 MMOL/L (3.5-5.1); SODIUM 138 MMOL/L (136-145)
[2019-12-07 10:04] LABS: ALANINE AMINOTRANSFERASE 17 U/L (12-78); ALBUMIN 3.4 G/DL (3.4-5.0); ALKALINE PHOSPHATASE 89 U/L (46-116); ASPARTATE AMINO TRANSFERASE 21 U/L (15-37); BILIRUBIN,TOTAL 0.6 MG/DL (0.2-1.0)
[2019-12-07 10:45] LABS: APPEARANCE,URINE SLIGHTLY CLOUDY; BILIRUBIN, URINE NEGATIVE (NEGATIVE); COLOR,URINE PALE YELLOW; GLUCOSE, URINE (UA) NEGATIVE (NEGATIVE); KETONES,URINE NEGATIVE (NEGATIVE); LEUKOCYTE ESTERASE ,URINE 1+ (NEGATIVE); NITRITE,URINE NEGATIVE (NEGATIVE); PH,URINE 7 (4.5-8.0); PROTEIN,URINE NEGATIVE (NEGATIVE); UROBILINOGEN,URINE 1 MG/DL (0.0-1.0)
--- NOTE | 2019-12-07 10:46 | NUR ---
ED Nurse Note: Pt on bed, resting comfortably, denies any pain as of now, NAD noted.
--- NOTE | 2019-12-07 11:45 | NUR ---
ED Nurse Note: Dr. Hope at bedside.
--- NOTE | 2019-12-07 11:53 | Consultation ---
History of Present Illness General Date patient seen: Dec 07, 2019 Reason for Hospitalization: Abdominal Pain Present Illness HPI 69 year old female known to me from prior who [place] [facility] of abdominal pain and back pain. CT with possible acute appy. surgery called to evaluate. patient seen in ED, chart reviewed, patient examined. no n/v/f/c. labs okay. patient of note had prior CT with similar findings in the past. last eval in ED was transferred to [facility] for care where admitted for 3 days and d/c safely. she has history of chronic pain in the past and prior spine surgery. she is on oxycodone at home and wants stronger pain medication and cannot tell directly if for abd pain or back pain. +flatus. +diet. Allergies: Coded Allergies: KETOROLAC TROMETHAMINE (Verified Allergy, Severe, Anaphylaxis, 10/22/18) PENICILLINS (Verified Allergy, Severe, Anaphylaxis, 10/22/18) TETRACYCLINE (Verified Allergy, Severe, Anaphylaxis, 10/22/18) HALOPERIDOL LACTATE (Verified Allergy, Intermediate, Anaphylaxis, 10/22/18) ERYTHROMYCIN BASE (Verified Allergy, Mild, 10/22/18) AMPICILLIN (Verified Allergy, Unknown, 10/22/18) ASPIRIN (Verified Allergy, Unknown, 10/22/18) AZITHROMYCIN (Unverified Allergy, Unknown, 04/17/19) IBUPROFEN (Verified Allergy, Unknown, 10/22/18) NAPROXEN (Verified Allergy, Unknown, 10/22/18) Uncoded Allergies: AMPICILLINS (Allergy, Unknown, 09/18/19) PENICILLIN (Allergy, Unknown, 09/08/19) COVID-19 Screening Contact w/high risk pt: No Recent Travel to affected area: No Experienced COVID-19 symptoms?: No Medication History Scheduled Albuterol Sulfate* (Albuterol Sulfate Hfa*), 2 PUFF INH Q6H Carisoprodol* (Carisoprodol*), 350 MG ORAL Q6H, (Reported) Lidocaine Patch* (Lidoderm Patch*), 1 PATCH TOPIC DAILY Pantoprazole* (Pantoprazole*), 40 MG ORAL DAILY Potassium Chloride* (K-Dur*), 20 MEQ ORAL DAILY Scheduled PRN Acetaminophen With Codeine (T#4) (Tylenol #4 Tab*), 1 TAB ORAL Q6H PRN Acetaminophen With Codeine (T#4) (Tylenol #4 Tab*), 1 TAB ORAL Q8H PRN for For Pain Hydrocodone Bit/Acetaminophen 5-325* (Amoret 5-325 Tablet*), 1 TAB ORAL Q6H PRN for FOR PAIN Oxycodone Hcl (Oxycodone Hcl), 30 MG ORAL Q6H PRN for For Pain, (Reported) Patient History History Provided By: Patient, Medical Record, PMD Healthcare decision maker Resuscitation status Advanced Directive on File Review of Systems Review of Symptoms General ROS: no weight loss or fever Psychological ROS: no depression or mood changes, no memory loss Ophthalmic ROS: no visual changes or eye irritation ENT ROS: no nasal congestion, hearing loss, dizziness Allergy and Immunology ROS: no allergic symptoms or urticaria Hematological and Lymphatic ROS: no swollen glands, unusual bleeding or bruising Endocrine ROS: no polyuria, polydipsia, weight changes, temperature intolerance Respiratory ROS: no cough, shortness of breath, or wheezing Cardiovascular ROS: no chest pain or dyspnea on exertion Gastrointestinal ROS: denies abdominal pain, bright red blood in stool. Musculoskeletal ROS: no myalgias or arthralgias Neurological ROS: no TIA or stroke symptoms Dermatological ROS: no new or changing skin lesions, rashes or pruritis Physical Exam Physical Exam General appearance: alert, cooperative, no distress, appears stated age Head: Normocephalic, without obvious abnormality, atraumatic Eyes: conjunctivae/corneas clear. PERRL, EOM's intact. Fundi benign Throat: Lips, mucosa, and tongue normal. Teeth and gums normal Neck: supple, symmetrical, trachea midline, no adenopathy, thyroid: not enlarged, symmetric, no tenderness/mass/nodules, no carotid bruit and no JVD Lungs: clear to auscultation bilaterally Heart: regular rate and rhythm, S1, S2 normal, no murmur, click, rub or gallop Abdomen: soft, non-tender. Bowel sounds normal. No masses, no organomegaly Extremities: extremities normal, atraumatic, no cyanosis or edema Pulses: 2+ and symmetric Skin: Skin color, texture, turgor normal. No rashes or lesions Neurologic: Grossly normal Last 24 Hour Vital Signs Date Time Temp Pulse Resp B/P (MAP) Pulse Ox O2 Delivery O2 Flow Rate FiO2 12/07/19 09:15 96 19 Nasal Cannula 2.0 12/07/19 09:15 97.0 19 168/98 94 Nasal Cannula 2.0 12/07/19 08:58 97.0 96 19 168/98 (121) 94 Nasal Cannula 2.0 Laboratory Tests Test 12/07/19 09:30 12/07/19 10:33 White Blood Count 5.1 K/UL (4.8-10.8) Red Blood Count 4.90 M/UL (4.20-5.40) Hemoglobin 12.8 G/DL (12.0-16.0) Hematocrit 39.3 % (37.0-47.0) Mean Corpuscular Volume 80 FL (80-99) Mean Corpuscular Hemoglobin 26.1 PG (27.0-31.0) L Mean Corpuscular Hemoglobin Concent 32.5 G/DL (32.0-36.0) Red Cell Distribution Width 18.1 % (11.6-14.8) H Platelet Count 259 K/UL (150-450) Mean Platelet Volume 5.9 FL (6.5-10.1) L Neutrophils (%) (Auto) 55.8 % (45.0-75.0) Lymphocytes (%) (Auto) 26.8 % (20.0-45.0) Monocytes (%) (Auto) 11.2 % (1.0-10.0) H Eosinophils (%) (Auto) 1.3 % (0.0-3.0) Basophils (%) (Auto) 4.9 % (0.0-2.0) H Prothrombin Time 12.2 SEC (9.30-11.50) H Prothromb Time International Ratio 1.1 (0.9-1.1) Activated Partial Thromboplast Time 26 SEC (23-33) Sodium Level 138 MMOL/L (136-145) Potassium Level 3.7 MMOL/L (3.5-5.1) Chloride Level 105 MMOL/L (98-107) Carbon Dioxide Level 26 MMOL/L (21-32) Anion Gap 7 mmol/L (5-15) Blood Urea Nitrogen 9 mg/dL (7-18) Creatinine 0.8 MG/DL (0.55-1.30) Estimat Glomerular Filtration Rate > 60 mL/min (>60) Glucose Level 98 MG/DL (74-106) Calcium Level 8.9 MG/DL (8.5-10.1) Magnesium Level 1.8 MG/DL (1.8-2.4) Total Bilirubin 0.6 MG/DL (0.2-1.0) Aspartate Amino Transf (AST/SGOT) 21 U/L (15-37) Alanine Aminotransferase (ALT/SGPT) 17 U/L (12-78) Alkaline Phosphatase 89 U/L (46-116) Troponin I 0.004 ng/mL (0.000-0.056) Total Protein 6.7 G/DL (6.4-8.2) Albumin 3.4 G/DL (3.4-5.0) Globulin 3.3 g/dL Albumin/Globulin Ratio 1.0 (1.0-2.7) Lipase 167 U/L (73-393) Urine Color Pale yellow Urine Appearance Slightly cloudy Urine pH 7 (4.5-8.0) Urine Specific [place] 1.005 (1.005-1.035) Urine Protein Negative (NEGATIVE) Urine Glucose (UA) Negative (NEGATIVE) Urine Ketones Negative (NEGATIVE) Urine Blood 1+ (NEGATIVE) H Urine Nitrite Negative (NEGATIVE) Urine Bilirubin Negative (NEGATIVE) Urine Urobilinogen 1 MG/DL (0.0-1.0) H Urine Leukocyte Esterase 1+ (NEGATIVE) H Urine RBC 0-2 /HPF (0 - 2) Urine WBC 5-10 /HPF (0 - 2) H Urine Squamous Epithelial Cells Many /LPF (NONE/OCC) H Urine Bacteria Few /HPF (NONE) Height (Feet): 5 Weight (Pounds): 110 Assessment/Plan Problem List: (1) Upper respiratory infection (2) Constipation ICD Codes: K59.00 - Constipation, unspecified SNOMED: 91381965 (3) Chronic hypokalemia ICD Codes: E87.6 - Hypokalemia SNOMED: 18856371 (4) Acute pyelonephritis ICD Codes: N10 - Acute tubulo-interstitial nephritis SNOMED: 91913507 (5) Myalgia ICD Codes: M79.10 - Myalgia, unspecified site SNOMED: 79368220 (6) Arthralgia ICD Codes: M25.50 - Pain in unspecified joint SNOMED: 24853235 (7) Acute abdominal pain Assessment & Plan: 69F with acute abdominal and back pain. chronic. CT with acute appy but prior CT weeks ago with similar findings has been worked up prior and not acute appy exam without RLQ tenderness and not consistent labs okay no n/v/f/c no acute surgical intervention planned okay to admit for observation and repeat exam pain meds prn diet as tolerated activity as tolerated thank you will follow with recs ICD Codes: R10.9 - Unspecified abdominal pain SNOMED: 856170100 (8) Blurred vision ICD Codes: H53.8 - Other visual disturbances SNOMED: 152679842 (9) Back pain ICD Codes: M54.9 - Dorsalgia, unspecified SNOMED: 648429294 (10) Bronchospasm ICD Codes: J98.01 - Acute bronchospasm SNOMED: 5843503 (11) Depression ICD Codes: F32.9 - Major depressive disorder, single episode, unspecified SNOMED: 99557946 (12) Gastroenteritis ICD Codes: K52.9 - Noninfective gastroenteritis and colitis, unspecified SNOMED: 18444865 (13) Headache ICD Codes: R51 - Headache SNOMED: 93269113 (14) Pyelonephritis ICD Codes: N12 - Tubulo-interstitial nephritis, not specified as acute or chronic SNOMED: 71383809 (15) Respiratory failure ICD Codes: J96.90 - Respiratory failure, unspecified, unspecified whether with hypoxia or hypercapnia SNOMED: 253814940 (16) Sepsis ICD Codes: A41.9 - Sepsis, unspecified organism SNOMED: 85446090 (17) Abdominal pain ICD Codes: R10.9 - Unspecified abdominal pain SNOMED: 06337838 (18) Bronchitis ICD Codes: J40 - Bronchitis, not specified as acute or chronic SNOMED: 80092981 (19) Hypertension ICD Codes: I10 - Essential (primary) hypertension SNOMED: 78759234 (20) Pneumonia ICD Codes: J18.9 - Pneumonia, unspecified organism SNOMED: 753274390 (21) Fall ICD Codes: W19.XXXA - Unspecified fall, initial encounter SNOMED: 6916933 (22) Rash and nonspecific skin eruption ICD Codes: R21 - Rash and other nonspecific skin eruption SNOMED: 622309440 (23) Rash and nonspecific skin eruption ICD Codes: R21 - Rash and other nonspecific skin eruption SNOMED: 024264392 (24) Chronic pain ICD Codes: G89.29 - Other chronic pain SNOMED: 88863297 (25) Lung disease, bullous ICD Codes: J43.9 - Emphysema, unspecified SNOMED: 578141800 (26) COPD bronchitis ICD Codes: J44.9 - Chronic obstructive pulmonary disease, unspecified SNOMED: 065595210 (27) Exacerbation of systemic lupus ICD Codes: M32.9 - Systemic lupus erythematosus, unspecified SNOMED: 63475249, 585148107 (28) COVID-19 ruled out ICD Codes: Z03.818 - Encounter for observation for suspected exposure to other biological agents ruled out SNOMED: 765171118, 650696147 (29) Lupus (30) Lupus (31) acute bronchitis (32) chest wall contusion (33) chest wall contusion (34) hypokalemia (35) Drug-seeking behavior ICD Codes: Z72.89 - Other problems related to lifestyle SNOMED: 868051007 (36) Encounter for generalized patient complaints ICD Codes: Z00.8 - Encounter for other general examination SNOMED: 928533658 (37) back pain (38) Pain ICD Codes: R52 - Pain, unspecified SNOMED: 75703857 (39) Total body pain ICD Codes: R52 - Pain, unspecified SNOMED: 727385676 (40) Back pain ICD Codes: M54.9 - Dorsalgia, unspecified SNOMED: 994123718 (41) Lupus ICD Codes: M32.9 - Systemic lupus erythematosus, unspecified SNOMED: 17406641 (42) Low back pain ICD Codes: M54.5 - Low back pain SNOMED: 991988403 (43) COPD (chronic obstructive pulmonary disease) ICD Codes: J44.9 - Chronic obstructive pulmonary disease, unspecified SNOMED: 61449595 (44) SLE exacerbation ICD Codes: M32.9 - Systemic lupus erythematosus, unspecified SNOMED: 05323098, 861512516 (45) Chest wall pain ICD Codes: R07.89 - Other chest pain SNOMED: 323501834 (46) Chronic pain ICD Codes: G89.29 - Other chronic pain SNOMED: 34320983 (47) Opioid dependence ICD Codes: F11.20 - Opioid dependence, uncomplicated SNOMED: 50541507 (48) COPD exacerbation ICD Codes: J44.1 - Chronic obstructive pulmonary disease with (acute) exacerbation SNOMED: 882733755 Caesar Hope Dec 07, 2019 11:53
[2019-12-07 12:15] VITALS: BP 159/88
[2019-12-07 15:23] VITALS: BP 146/84
--- NOTE | 2019-12-07 15:23 | NUR ---
ED Nurse Note: pt was transferred to [facility] under the care of Dr. Petty. Report for transfer was given to BRENDA Llanos in [facility]. Pt was transferred on stable condition; all belongings was sent with pt.
--- NOTE | 2019-12-09 06:18 | Diagnostic Imaging Report ---
EXAM: CT Head Without Intravenous Contrast CLINICAL HISTORY: PAIN TECHNIQUE: Axial computed tomography images of the head/brain without intravenous contrast. CTDI is 53.4 mGy and DLP is 992.1 mGy-cm. One or more of the following dose reduction techniques were used: automated exposure control, adjustment of the mA and/or kV according to patient size, use of iterative reconstruction technique. COMPARISON: Head CT October 17, 2019. FINDINGS: No acute intracranial hemorrhage. No midline shift or mass effect. The territorial hwang-white matter differentiation is maintained throughout. Age-related cerebral volume loss. Periventricular and subcortical white matter hypoattenuation, consistent with chronic microangiopathy. The visualized orbits appear grossly unremarkable. The calvarium is intact. The visualized paranasal sinuses and mastoid air cells are grossly clear. IMPRESSION: No acute intracranial hemorrhage, midline shift, or mass effect.
--- NOTE | 2019-12-09 06:18 | Diagnostic Imaging Report ---
EXAM: CT Abdomen and Pelvis Without Intravenous Contrast CLINICAL HISTORY: PAIN TECHNIQUE: Axial computed tomography images of the abdomen and pelvis without intravenous contrast. CTDI is 3.6 mGy and DLP is 152.5 mGy-cm. One or more of the following dose reduction techniques were used: automated exposure control, adjustment of the mA and/or kV according to patient size, use of iterative reconstruction technique. COMPARISON: CT abdomen and pelvis November 20, 2019 FINDINGS: Lung bases: Moderate emphysematous changes at the lung bases with scarring/atelectasis. Heart: Cardiomegaly. Calcified thoracic aorta. Mild cardiomegaly. ABDOMEN: Liver: Dilated extrahepatic biliary ducts. Dilated main pancreatic duct measuring up to 5-6 mm. Gallbladder and bile ducts: Status post cholecystectomy. Pancreas: See above. Spleen: Unremarkable. No splenomegaly. Adrenals: Unremarkable. No mass. Kidneys and ureters: No hydronephrosis. Nonobstructing 2 mm right lower pole calculus. No obstructive uropathy. Stomach and bowel: Moderate diverticulosis, without acute diverticulitis. No small bowel obstruction. PELVIS: Appendix: Distended distal appendix measuring 1 cm with mild. Penis inflammation and circumferential wall thickening, consistent with acute appendicitis. No perforation or abscess. Bladder: Decompressed urinary bladder. No stones. Reproductive: Unremarkable as visualized. ABDOMEN and PELVIS: Intraperitoneal space: No free intraperitoneal air. No significant fluid collection. Bones/joints: No acute fracture. No dislocation. Soft tissues: Calcifications at the bilateral gluteal soft tissues consistent with injection granulomas. Vasculature: Severe atherosclerotic calcifications of the abdominal aorta and superior mesenteric artery. No abdominal aortic aneurysm. Lymph nodes: Unremarkable. No enlarged lymph nodes. IMPRESSION: 1. Acute appendicitis without perforation or abscess. See above description. Note, the appearance is similar when compared to November 20, 2019. Moderate diverticulosis, without acute diverticulitis. 2. Status post cholecystectomy. 3. Dilated extrahepatic biliary ducts. Dilated main pancreatic duct measuring up to 5-6 mm. Unchanged when compared to November 20, 2019. 4. No hydronephrosis. Nonobstructing 2 mm right lower pole calculus. No obstructive uropathy. 5. Moderate emphysematous changes at the lung bases with scarring/atelectasis.
--- NOTE | 2019-12-09 06:18 | Diagnostic Imaging Report ---
EXAM: XR Chest, 1 View CLINICAL HISTORY: PAIN TECHNIQUE: Frontal view of the chest. COMPARISON: Chest radiograph December 04, 2019 FINDINGS/IMPRESSION: Hyperinflation with emphysematous changes, correlate for COPD. Chronically increased interstitial markings. No pleural effusion or pneumothorax. No focal infiltrate. Cardiomegaly. Calcified, tortuous aorta. Cholecystectomy clip.
== END | disposition short-term general hospital (02) ==
LOC: EDUNIT# 08:57 → EDBD 08:58 → EMR 09:10
DX: K35.80 Unspecified acute appendicitis (principal); R10.9 Unspecified abdominal pain; M54.9 Dorsalgia, unspecified; G89.29 Other chronic pain; Z88.0 Allergy status to penicillin; Z88.6 Allergy status to analgesic agent; Z88.8 Allergy status to other drugs, medicaments and biological substances; J44.9 Chronic obstructive pulmonary disease, unspecified; Z86.73 Personal history of transient ischemic attack (TIA), and cerebral infarction without residual deficits; I51.7 Cardiomegaly; R51.9 Headache, unspecified; Z90.49 Acquired absence of other specified parts of digestive tract; K57.90 Diverticulosis of intestine, part unspecified, without perforation or abscess without bleeding; N20.0 Calculus of kidney
CPT/HCPCS: 36415; 70450; 71045; 74176; 80053; 81003; 83690; 83735; 84484; 85025; 85610; 85730; 93005; 96374; 96376; 99284; J1170

== ENCOUNTER 2019-12-14 08:38 | Emergency (ER) | payer MEDICARE, OTHER ==
[~2019-12-14] VITALS: Ht 157.5 cm; Wt 49.9 kg
[~2019-12-14 08:38] MED LIST changes: -HYDROmorphone 1mg/ml Carpuject IVP ONE
--- NOTE | 2019-12-14 08:43 | NUR ---
ED Nurse Note: PT brought in by ambulance from home for C/O ABD pain x 3 days. PT reports having surgery to abdominal area 3 days ago. lap wound with dressing noted to left lower abd area.
[2019-12-14 08:45] VITALS: BP 135/77
[2019-12-14] MEDS ORDERED: Omnipaque-300 100ml vial INJ PRN (09:00)
[2019-12-14] MEDS ORDERED: HYDROmorphone 1mg/ml Carpuject IVP ONE ×2 (09:00→11:15)
--- NOTE | 2019-12-14 09:05 | NUR ---
ED Nurse Note: blood sample collected and sent to lab. pt unable to provide urine sample at this time but is aware urine sample is still needed.
[2019-12-14 09:11] LABS: BASOPHILS % (AUTO) 1.1 % (0.0-2.0); EOSINOPHILS % (AUTO) 1.4 % (0.0-3.0); HEMATOCRIT 33.9 % (37.0-47.0); HEMOGLOBIN 11.2 G/DL (12.0-16.0); LYMPHOCYTES % (AUTO) 29.9 % (20.0-45.0); MEAN CORPUSCULAR VOLUME 79 FL (80-99); MONOCYTES % (AUTO) 15.3 % (1.0-10.0); NEUTROPHILS % (AUTO) 52.2 % (45.0-75.0); PLATELET COUNT 272 K/UL (150-450); RED BLOOD COUNT 4.29 M/UL (4.20-5.40); WHITE BLOOD COUNT 5.1 K/UL (4.8-10.8)
[2019-12-14 09:19] LABS: INR 1.1 (0.9-1.1)
[2019-12-14 09:30] LABS: ANION GAP 9 mmol/L (5-15); BLOOD UREA NITROGEN 12 mg/dL (7-18); CALCIUM 9.1 MG/DL (8.5-10.1); CARBON DIOXIDE 27 MMOL/L (21-32); CHLORIDE 105 MMOL/L (98-107); CREATININE 0.9 MG/DL (0.55-1.30); POTASSIUM 3.5 MMOL/L (3.5-5.1); SODIUM 141 MMOL/L (136-145)
[2019-12-14 09:34] LABS: ALANINE AMINOTRANSFERASE 19 U/L (12-78); ALBUMIN 3.2 G/DL (3.4-5.0); ALBUMIN/GLOBULIN RATIO 0.8 (1.0-2.7); ALKALINE PHOSPHATASE 88 U/L (46-116); ASPARTATE AMINO TRANSFERASE 20 U/L (15-37); BILIRUBIN,TOTAL 0.6 MG/DL (0.2-1.0)
--- NOTE | 2019-12-14 09:50 | NUR ---
ED Nurse Note: pt taken to ct via gurney in stable condition accompanied by lead slot technician
--- NOTE | 2019-12-14 10:11 | NUR ---
ED Nurse Note: back from ct
--- NOTE | 2019-12-14 10:18 | NUR ---
ED Nurse Note: urine collected and sent to lab.
[2019-12-14 10:31] LABS: APPEARANCE,URINE CLEAR; BILIRUBIN, URINE NEGATIVE (NEGATIVE); COLOR,URINE PALE YELLOW; GLUCOSE, URINE (UA) NEGATIVE (NEGATIVE); KETONES,URINE NEGATIVE (NEGATIVE); LEUKOCYTE ESTERASE ,URINE NEGATIVE (NEGATIVE); NITRITE,URINE NEGATIVE (NEGATIVE); PH,URINE 6.5 (4.5-8.0); PROTEIN,URINE NEGATIVE (NEGATIVE); UROBILINOGEN,URINE NORMAL MG/DL (0.0-1.0)
--- NOTE | 2019-12-14 10:35 | Diagnostic Imaging Report ---
EXAM: CT Abdomen and Pelvis With Intravenous Contrast CLINICAL HISTORY: ABD PAIN TECHNIQUE: Axial computed tomography images of the abdomen and pelvis with intravenous contrast. CTDI is 3.1 mGy and DLP is 149.2 mGy-cm. One or more of the following dose reduction techniques were used: automated exposure control, adjustment of the mA and/or kV according to patient size, use of iterative reconstruction technique. COMPARISON: CT abdomen/pelvis on 12/07/2019 FINDINGS: Lung bases: Emphysematous changes. Bibasilar consolidations likely represent atelectasis. Nonspecific 2-3 mm nodule in the right middle lobe. Heart: Mild cardiomegaly. Mediastinum: Mild prominence of the wall of the distal esophagus may represent esophagitis. ABDOMEN: Liver: Unremarkable. No mass. Gallbladder and bile ducts: Prior cholecystectomy. Stable prominence of the bile ducts and pancreatic duct. Pancreas: Unremarkable. No mass. No ductal dilation. Spleen: Unremarkable. No splenomegaly. Adrenals: Unremarkable. No mass. Kidneys and ureters: Stable small bilateral renal cysts. No hydronephrosis or obstructing stone. Stomach and bowel: Prominence of the nj of the colon may be secondary to under distention versus colitis. Evaluation of the stomach is limited by underdistention. Diverticulosis without evidence of diverticulitis. PELVIS: Appendix: Appendix is not definitely visualized on this exam and may be surgically absent. Bladder: Unremarkable. No mass. Reproductive: Probable prior hysterectomy. ABDOMEN and PELVIS: Intraperitoneal space: Unremarkable. No free air. No significant fluid collection. Bones/joints: Probable small bone islands in the pelvic bones. Degenerative changes of the spine, most prominent at L3-4. Grade 1 anterolisthesis of L3 on L4. No acute fracture. No dislocation. Soft tissues: Prominence. Injection granulomas in the gluteal soft tissues. Vasculature: Phleboliths in the pelvis. Extensive vascular calcifications. No aortic aneurysm or dissection. Lymph nodes: Unremarkable. No enlarged lymph nodes. IMPRESSION: 1. Emphysematous changes. Bibasilar consolidations likely represent atelectasis. 2. Mild prominence of the wall of the distal esophagus may represent esophagitis. 3. Prior cholecystectomy. Stable prominence of the bile ducts and pancreatic duct. 4. Prominence of the nj of the colon may be secondary to under distention versus colitis. 5. Appendix is not definitely visualized on this exam and may be surgically absent.
--- NOTE | 2019-12-14 11:54 | NUR ---
ER DISCHARGE NOTE: [facility] here to transport pt back home. Patient is cleared to be discharged per ERMD, pt is aox4, on room air, with stable vital signs. pt was given dc instructions, pt was able to verbalize understanding, pt id band and iv site removed without complications. pt taken home via gurney. pt took all belongings with her
[2019-12-14 11:55] VITALS: BP 155/90
--- NOTE | 2019-12-15 07:05 | Emergency Room Report ---
History of Present Illness General Chief Complaint: Abdominal Pain Source: Patient, Medical Record Present Illness HPI 69-year-old female presents the ED for abdominal pain. Brought in by EMS from home. States that she just had her appendix removed 3 days ago and has been having persistent pain. No fevers or chills. Pain is a 10 out of 10, sharp, nonradiating. Denies chest pain or shortness of breath. No other aggravating relieving factors. Denies any other associated symptoms Allergies: Coded Allergies: KETOROLAC TROMETHAMINE (Verified Allergy, Severe, Anaphylaxis, 10/22/18) PENICILLINS (Verified Allergy, Severe, Anaphylaxis, 10/22/18) TETRACYCLINE (Verified Allergy, Severe, Anaphylaxis, 10/22/18) HALOPERIDOL LACTATE (Verified Allergy, Intermediate, Anaphylaxis, 10/22/18) ERYTHROMYCIN BASE (Verified Allergy, Mild, 10/22/18) AMPICILLIN (Verified Allergy, Unknown, 10/22/18) ASPIRIN (Verified Allergy, Unknown, 10/22/18) AZITHROMYCIN (Unverified Allergy, Unknown, 04/17/19) IBUPROFEN (Verified Allergy, Unknown, 10/22/18) NAPROXEN (Verified Allergy, Unknown, 10/22/18) Uncoded Allergies: AMPICILLINS (Allergy, Unknown, 09/18/19) PENICILLIN (Allergy, Unknown, 09/08/19) COVID-19 Screening Contact w/high risk pt: No Recent Travel to affected area: No Experienced COVID-19 symptoms?: No COVID-19 symptoms experienced: Shortness of Breath, Cough 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 COVID-19 Screening: Negative COVID-19 COVID-19 [place] [facility] [facility] [place] History Past Medical History: asthma, COPD, other - Lupus Past Surgical History: appy Pertinent Family History: none Social History: Denies: smoking, alcohol use, drug use Now: No Immunizations: UTD Reviewed Nursing Documentation: PMH: Agreed; PSxH: Agreed Nursing Documentation-PMH Past Medical History: No History, Except For Hx Hypertension: No Hx Pacemaker: No Hx Asthma: Yes Hx COPD: Yes Hx Diabetes: No Hx Cancer: No Hx Gastrointestinal Problems: No Hx Dialysis: No Hx Neurological Problems: Yes - LUPUS Hx Cerebrovascular Accident: Yes - stroke Hx Seizures: No Hx Weakness: Yes Hx Neurologic Surgery: No Hx Brain Shunt: No Review of Systems All Other Systems: negative except mentioned in HPI Physical Exam Vital Signs Date Time Temp Pulse Resp B/P (MAP) Pulse Ox O2 Delivery O2 Flow Rate FiO2 12/14/19 08:37 99.3 97 18 135/77 (96) 97 Room Air Sp02 EP Interpretation: reviewed, normal General Appearance: alert, GCS 15, non-toxic, mild distress Head: normocephalic, atraumatic Eyes: bilateral eye normal inspection, bilateral eye PERRL ENT: hearing grossly normal, normal pharynx, no angioedema, normal voice Neck: full range of motion, supple/symm/no masses Respiratory: chest non-tender, lungs clear, normal breath sounds, speaking full sentences Cardiovascular #1: regular rate, rhythm, no edema Cardiovascular #2: 2+ carotid (R), 2+ carotid (L), 2+ radial (R), 2+ radial (L), 2+ dorsalis pedis (R), 2+ dorsalis pedis (L) Gastrointestinal: normal bowel sounds, soft, non-distended, no pulsatile mass, guarding, tenderness, other - Surgical site clean/dry/intact Rectal: deferred Genitourinary: normal inspection, no CVA tenderness Musculoskeletal: back normal, normal range of motion, gait/station normal, non- tender Neurologic: alert, motor strength/tone normal, oriented x3, sensory intact, responsive, speech normal Psychiatric: judgement/insight normal, memory normal, mood/affect normal, no suicidal/homicidal ideation Reflexes: 3+ bicep (R), 3+ bicep (L), 3+ tricep (R), 3+ tricep (L), 3+ knee (R), 3+ knee (L) Skin: no rash Lymphatic: no adenopathy Medical Decision Making Diagnostic Impression: Primary Impression: Abdominal pain Qualified Codes: R10.84 - Generalized abdominal pain Additional Impression: Status post appendectomy ER Course Hospital Course 69-year-old female presents with abdominal pain. Status post appendectomy Differential diagnosis includes constipation, SBO, postoperative abscess Clinical course Patient placed on stretcher. After initial history and physical I ordered labs, IV fluids, pain medications and CT scan Labs - no leukocytosis, electrolytes okay, LFTs normal, UA unremarkable CT scan shows no acute pathology status post appendectomy Upon reassessment, patient states pain has improved. [place] [facility] [place] Is normally here for lupus exacerbation versus COPD exacerbation. Has high pain threshold and opioid dependence. Patient given 2 doses of Dilaudid he re. Discussed findings with patient. I believe pain is appropriate postoperative pain. Patient is amenable to discharge. Recommend close follow- up with surgeon who performed the surgery. We will arrange for transport home I feel this is a highly complex case requiring extensive working including EKG/Rhythm strip, Xray/CT/US, Blood/urine lab work, repeat exams while in ED, and administration of strong opiates/narcotics for pain control, admission to hospital or close patient follow up. Diagnosis - abdominal pain, status post appendectomy Stable and discharged to home. Followup with PMDsurgery. Return to ED if symptoms recur or worsen Laboratory Tests Test 12/14/19 08:45 12/14/19 10:10 White Blood Count 5.1 K/UL (4.8-10.8) Red Blood Count 4.29 M/UL (4.20-5.40) Hemoglobin 11.2 G/DL (12.0-16.0) L Hematocrit 33.9 % (37.0-47.0) L Mean Corpuscular Volume 79 FL (80-99) L Mean Corpuscular Hemoglobin 26.1 PG (27.0-31.0) L Mean Corpuscular Hemoglobin Concent 33.0 G/DL (32.0-36.0) Red Cell Distribution Width 17.0 % (11.6-14.8) H Platelet Count 272 K/UL (150-450) Mean Platelet Volume 5.9 FL (6.5-10.1) L Neutrophils (%) (Auto) 52.2 % (45.0-75.0) Lymphocytes (%) (Auto) 29.9 % (20.0-45.0) Monocytes (%) (Auto) 15.3 % (1.0-10.0) H Eosinophils (%) (Auto) 1.4 % (0.0-3.0) Basophils (%) (Auto) 1.1 % (0.0-2.0) Prothrombin Time 12.1 SEC (9.30-11.50) H Prothromb Time International Ratio 1.1 (0.9-1.1) Activated Partial Thromboplast Time 27 SEC (23-33) Sodium Level 141 MMOL/L (136-145) Potassium Level 3.5 MMOL/L (3.5-5.1) Chloride Level 105 MMOL/L (98-107) Carbon Dioxide Level 27 MMOL/L (21-32) Anion Gap 9 mmol/L (5-15) Blood Urea Nitrogen 12 mg/dL (7-18) Creatinine 0.9 MG/DL (0.55-1.30) Estimat Glomerular Filtration Rate > 60 mL/min (>60) Glucose Level 75 MG/DL (74-106) Calcium Level 9.1 MG/DL (8.5-10.1) Total Bilirubin 0.6 MG/DL (0.2-1.0) Aspartate Amino Transf (AST/SGOT) 20 U/L (15-37) Alanine Aminotransferase (ALT/SGPT) 19 U/L (12-78) Alkaline Phosphatase 88 U/L (46-116) Total Protein 7.4 G/DL (6.4-8.2) Albumin 3.2 G/DL (3.4-5.0) L Globulin 4.2 g/dL Albumin/Globulin Ratio 0.8 (1.0-2.7) L Lipase 188 U/L (73-393) Urine Color Pale yellow Urine Appearance Clear Urine pH 6.5 (4.5-8.0) Urine Specific [place] 1.010 (1.005-1.035) Urine Protein Negative (NEGATIVE) Urine Glucose (UA) Negative (NEGATIVE) Urine Ketones Negative (NEGATIVE) Urine Blood Negative (NEGATIVE) Urine Nitrite Negative (NEGATIVE) Urine Bilirubin Negative (NEGATIVE) Urine Urobilinogen Normal MG/DL (0.0-1.0) Urine Leukocyte Esterase Negative (NEGATIVE) CT/MRI/US Diagnostic Results CT/MRI/US Diagnostic Results : Imaging Test Ordered: CT A/P Impression Procedure: CT Abdomen Pelvis w/Contrast EXAM: CT Abdomen and Pelvis With Intravenous Contrast CLINICAL HISTORY: ABD PAIN TECHNIQUE: Axial computed tomography images of the abdomen and pelvis with intravenous contrast. CTDI is 3.1 mGy and DLP is 149.2 mGy-cm. One or more of the following dose reduction techniques were used: automated exposure control, adjustment of the mA and/or kV according to patient size, use of iterative reconstruction technique. COMPARISON: CT abdomen/pelvis on 12/07/2019 FINDINGS: Lung bases: Emphysematous changes. Bibasilar consolidations likely represent atelectasis. Nonspecific 2-3 mm nodule in the right middle lobe. Heart: Mild cardiomegaly. Mediastinum: Mild prominence of the wall of the distal esophagus may represent esophagitis. ABDOMEN: Liver: Unremarkable. No mass. Gallbladder and bile ducts: Prior cholecystectomy. Stable prominence of the bile ducts and pancreatic duct. Pancreas: Unremarkable. No mass. No ductal dilation. Spleen: Unremarkable. No splenomegaly. Adrenals: Unremarkable. No mass. Kidneys and ureters: Stable small bilateral renal cysts. No hydronephrosis or obstructing stone. Stomach and bowel: Prominence of the nj of the colon may be secondary to under distention versus colitis. Evaluation of the stomach is limited by underdistention. Diverticulosis without evidence of diverticulitis. PELVIS: Appendix: Appendix is not definitely visualized on this exam and may be surgically absent. Bladder: Unremarkable. No mass. Reproductive: Probable prior hysterectomy. ABDOMEN and PELVIS: Intraperitoneal space: Unremarkable. No free air. No significant fluid collection. Bones/joints: Probable small bone islands in the pelvic bones. Degenerative changes of the spine, most prominent at L3-4. Grade 1 anterolisthesis of L3 on L4. No acute fracture. No dislocation. Soft tissues: Prominence. Injection granulomas in the gluteal soft tissues. Vasculature: Phleboliths in the pelvis. Extensive vascular calcifications. No aortic aneurysm or dissection. Lymph nodes: Unremarkable. No enlarged lymph nodes. IMPRESSION: 1. Emphysematous changes. Bibasilar consolidations likely represent atelectasis. 2. Mild prominence of the wall of the distal esophagus may represent esophagitis. 3. Prior cholecystectomy. Stable prominence of the bile ducts and pancreatic duct. 4. Prominence of the nj of the colon may be secondary to under distention versus colitis. 5. Appendix is not definitely visualized on this exam and may be surgically absent. Last Vital Signs Date Time Temp Pulse Resp B/P (MAP) Pulse Ox O2 Delivery O2 Flow Rate FiO2 12/14/19 11:55 99.3 95 16 155/90 98 Room Air Status: improved Disposition: HOME, SELF-CARE Condition: Stable Patient Instructions: Lizette Procedure, Care After Stephen Win MD Dec 15, 2019 07:05
== END 2019-12-14 11:55 | disposition home or self-care (01) ==
LOC: EDBD 08:38 → EMR 08:54
DX: R10.84 Generalized abdominal pain (principal); Z90.89 Acquired absence of other organs; Z88.0 Allergy status to penicillin; Z88.6 Allergy status to analgesic agent; J44.9 Chronic obstructive pulmonary disease, unspecified; Z86.73 Personal history of transient ischemic attack (TIA), and cerebral infarction without residual deficits; Z90.49 Acquired absence of other specified parts of digestive tract; I87.8 Other specified disorders of veins
CPT/HCPCS: 36415; 74177; 80053; 81003; 83690; 85025; 85610; 85730; 86850; 86900; 86901; 96361; 96374; 96375; 99284; J1170; Q9965

== ENCOUNTER 2019-12-15 07:31 | Emergency (ER) | payer MEDICARE, OTHER ==
[~2019-12-15] VITALS: Ht 170.2 cm; Wt 56.7 kg
--- NOTE | 2019-12-15 07:35 | NUR ---
Nurse note: patient complaining of left lower abdominal pain after surugical procedure. she states, "the pain woke her up from sleep and hurts more that in previous days" she is able to communicate with full sentences. she is guarding lower adbominal region, when palpated she moans and yells in agony. she is on rooom air saturating at 98-99%. heart rate is in sinus tachycardia.
[2019-12-15] MEDS ORDERED: HYDROmorphone 1mg/ml Carpuject IVP ONE (07:45)
[2019-12-15 07:47] VITALS: BP 172/86
[2019-12-15 08:00] VITALS: BP 153/81
[2019-12-15 08:02] LABS: BASOPHILS % (AUTO) 1.8 % (0.0-2.0); EOSINOPHILS % (AUTO) 1.6 % (0.0-3.0); HEMATOCRIT 36.7 % (37.0-47.0); HEMOGLOBIN 11.8 G/DL (12.0-16.0); LYMPHOCYTES % (AUTO) 41.1 % (20.0-45.0); MEAN CORPUSCULAR VOLUME 79 FL (80-99); MONOCYTES % (AUTO) 13.1 % (1.0-10.0); NEUTROPHILS % (AUTO) 42.4 % (45.0-75.0); PLATELET COUNT 292 K/UL (150-450); RED BLOOD COUNT 4.64 M/UL (4.20-5.40); RED CELL DISTRIBUTION WIDTH 17.2 % (11.6-14.8); WHITE BLOOD COUNT 5.1 K/UL (4.8-10.8)
--- NOTE | 2019-12-15 08:04 | NUR ---
Patient Addendum: 12/15/19 at 0804 by DBUSTAMANT patient given dilaudid for pain medication for abdominal pain with rating 9/10. IV infusion of NS started. patient is awake moaning, she is able to communicated with no impairment, she remains on room air with saturations at 97-98%.
[2019-12-15 08:11] LABS: ANION GAP 12 mmol/L (5-15); BLOOD UREA NITROGEN 10 mg/dL (7-18); CALCIUM 8.9 MG/DL (8.5-10.1); CARBON DIOXIDE 24 MMOL/L (21-32); CHLORIDE 108 MMOL/L (98-107); CREATININE 0.9 MG/DL (0.55-1.30); POTASSIUM 3.5 MMOL/L (3.5-5.1); SODIUM 144 MMOL/L (136-145)
[2019-12-15 08:15] LABS: ALANINE AMINOTRANSFERASE 17 U/L (12-78); ALBUMIN 3.2 G/DL (3.4-5.0); ALBUMIN/GLOBULIN RATIO 0.8 (1.0-2.7); ALKALINE PHOSPHATASE 89 U/L (46-116); ASPARTATE AMINO TRANSFERASE 19 U/L (15-37); BILIRUBIN,TOTAL 0.5 MG/DL (0.2-1.0)
[2019-12-15 09:09] VITALS: BP 163/84
[2019-12-15 09:12] LABS: APPEARANCE,URINE CLEAR; BILIRUBIN, URINE NEGATIVE (NEGATIVE); COLOR,URINE PALE YELLOW; GLUCOSE, URINE (UA) NEGATIVE (NEGATIVE); KETONES,URINE NEGATIVE (NEGATIVE); LEUKOCYTE ESTERASE ,URINE 1+ (NEGATIVE); NITRITE,URINE NEGATIVE (NEGATIVE); PH,URINE 6.5 (4.5-8.0); PROTEIN,URINE NEGATIVE (NEGATIVE); UROBILINOGEN,URINE NORMAL MG/DL (0.0-1.0)
--- NOTE | 2019-12-15 09:23 | NUR ---
nursing note: called [facility] to give report, phone number left with staff and awaiting for call marlena.
--- NOTE | 2019-12-15 09:28 | Emergency Room Report ---
History of Present Illness General Chief Complaint: Abdominal Pain Source: Medical Record Present Illness HPI 69-year-old female presents the ED for abdominal pain. Brought in by EMS from home. Patient is status post appendectomy and was discharged a few days ago from [facility]. Was here yesterday for abdominal pain and subsequently discharged. States pain has returned. Pain is throbbing, 10 out of 10, nonradiating. Denies fevers or chills. Denies chest pain. Denies nausea or vomiting. No other aggravating relieving factors. Denies any other associated symptoms Allergies: Coded Allergies: KETOROLAC TROMETHAMINE (Verified Allergy, Severe, Anaphylaxis, 10/22/18) PENICILLINS (Verified Allergy, Severe, Anaphylaxis, 10/22/18) TETRACYCLINE (Verified Allergy, Severe, Anaphylaxis, 10/22/18) HALOPERIDOL LACTATE (Verified Allergy, Intermediate, Anaphylaxis, 10/22/18) ERYTHROMYCIN BASE (Verified Allergy, Mild, 10/22/18) AMPICILLIN (Verified Allergy, Unknown, 10/22/18) ASPIRIN (Verified Allergy, Unknown, 10/22/18) AZITHROMYCIN (Unverified Allergy, Unknown, 04/17/19) IBUPROFEN (Verified Allergy, Unknown, 10/22/18) NAPROXEN (Verified Allergy, Unknown, 10/22/18) Uncoded Allergies: AMPICILLINS (Allergy, Unknown, 09/18/19) PENICILLIN (Allergy, Unknown, 09/08/19) COVID-19 Screening Contact w/high risk pt: No Recent Travel to affected area: No Experienced COVID-19 symptoms?: No COVID-19 symptoms experienced: Shortness of Breath, Cough 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 COVID-19 Screening: Negative COVID-19 COVID-19 Testing Source: Nasopharynx Patient History Past Medical History: asthma, COPD, other - Lupus Past Surgical History: appy, valeria Pertinent Family History: none Social History: Denies: smoking, alcohol use, drug use Now: No Immunizations: UTD Reviewed Nursing Documentation: PMH: Agreed; PSxH: Agreed Nursing Documentation-PMH Past Medical History: No History, Except For Hx Hypertension: No Hx Pacemaker: No Hx Asthma: Yes Hx COPD: Yes Hx Diabetes: No Hx Cancer: No Hx Gastrointestinal Problems: No Hx Dialysis: No Hx Neurological Problems: Yes Hx Cerebrovascular Accident: Yes - stroke Hx Seizures: No Hx Weakness: Yes Hx Neurologic Surgery: No Hx Brain Shunt: No Review of Systems All Other Systems: negative except mentioned in HPI Physical Exam Vital Signs Date Time Temp Pulse Resp B/P (MAP) Pulse Ox O2 Delivery O2 Flow Rate FiO2 12/15/19 07:35 97.9 102 20 172/86 (114) 100 Room Air Sp02 EP Interpretation: reviewed, normal General Appearance: alert, GCS 15, non-toxic, mild distress Head: normocephalic, atraumatic Eyes: bilateral eye normal inspection, bilateral eye PERRL ENT: hearing grossly normal, normal pharynx, no angioedema, normal voice Neck: full range of motion, supple/symm/no masses Respiratory: chest non-tender, lungs clear, normal breath sounds, speaking full sentences Cardiovascular #1: regular rate, rhythm, no edema Cardiovascular #2: 2+ carotid (R), 2+ carotid (L), 2+ radial (R), 2+ radial (L), 2+ dorsalis pedis (R), 2+ dorsalis pedis (L) Gastrointestinal: normal bowel sounds, soft, no rebound, distended, tenderness Rectal: deferred Genitourinary: normal inspection, no CVA tenderness Musculoskeletal: back normal, normal range of motion, gait/station normal, non- tender Neurologic: alert, motor strength/tone normal, oriented x3, sensory intact, responsive, speech normal Psychiatric: judgement/insight normal, memory normal, mood/affect normal, no suicidal/homicidal ideation Reflexes: 3+ bicep (R), 3+ bicep (L), 3+ tricep (R), 3+ tricep (L), 3+ knee (R), 3+ knee (L) Skin: other - See nursing notes Lymphatic: no adenopathy Medical Decision Making Diagnostic Impression: Primary Impression: Intractable abdominal pain Additional Impressions: Status post appendectomy Opioid dependence Qualified Codes: F11.29 - Opioid dependence with unspecified opioid-induced disorder ER Course Hospital Course 69-year-old female presents with abdominal pain. 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 After initial history and physical I ordered labs, IV fluids, UA, pain medications Labs - no leukocytosis, Hb/Hct stable, electrolytes ok Yesterday we did CT abdomen and pelvis -status post appendectomy with no acute process Patient is well-known to [facility] [place]. History of chronic pain and opioid dependence. History of lupus. Is here often multiple times a day for pain control. Refuses mission at times. Has left AMA multiple times. Has been here 15 times in the last 5 weeks. I do believe patient can be safely discharged at this time. Will likely require psychiatric evaluation to determine patient has capacity and likely [facility] facility placement. Because of insurance patient will be transferred. I feel this is a highly complex case requiring extensive working including EKG/Rhythm strip, Xray/CT/US, Blood/urine lab work, repeat exams while in ED, and administration of strong opiates/narcotics for pain control, admission to hospital or close patient follow up. Diagnosis -intractable abdominal pain. Status post appendectomy. Opioid dependence Transferred in serious condition Laboratory Tests Test 12/15/19 07:50 12/15/19 08:50 White Blood Count 5.1 K/UL (4.8-10.8) Red Blood Count 4.64 M/UL (4.20-5.40) Hemoglobin 11.8 G/DL (12.0-16.0) L Hematocrit 36.7 % (37.0-47.0) L Mean Corpuscular Volume 79 FL (80-99) L Mean Corpuscular Hemoglobin 25.4 PG (27.0-31.0) L Mean Corpuscular Hemoglobin Concent 32.1 G/DL (32.0-36.0) Red Cell Distribution Width 17.2 % (11.6-14.8) H Platelet Count 292 K/UL (150-450) Mean Platelet Volume 5.3 FL (6.5-10.1) L Neutrophils (%) (Auto) 42.4 % (45.0-75.0) L Lymphocytes (%) (Auto) 41.1 % (20.0-45.0) Monocytes (%) (Auto) 13.1 % (1.0-10.0) H Eosinophils (%) (Auto) 1.6 % (0.0-3.0) Basophils (%) (Auto) 1.8 % (0.0-2.0) Sodium Level 144 MMOL/L (136-145) Potassium Level 3.5 MMOL/L (3.5-5.1) Chloride Level 108 MMOL/L (98-107) H Carbon Dioxide Level 24 MMOL/L (21-32) Anion Gap 12 mmol/L (5-15) Blood Urea Nitrogen 10 mg/dL (7-18) Creatinine 0.9 MG/DL (0.55-1.30) Estimat Glomerular Filtration Rate > 60 mL/min (>60) Glucose Level 106 MG/DL (74-106) Calcium Level 8.9 MG/DL (8.5-10.1) Total Bilirubin 0.5 MG/DL (0.2-1.0) Aspartate Amino Transf (AST/SGOT) 19 U/L (15-37) Alanine Aminotransferase (ALT/SGPT) 17 U/L (12-78) Alkaline Phosphatase 89 U/L (46-116) Total Protein 7.3 G/DL (6.4-8.2) Albumin 3.2 G/DL (3.4-5.0) L Globulin 4.1 g/dL Albumin/Globulin Ratio 0.8 (1.0-2.7) L Lipase 205 U/L (73-393) Urine Color Pale yellow Urine Appearance Clear Urine pH 6.5 (4.5-8.0) Urine Specific [place] 1.010 (1.005-1.035) Urine Protein Negative (NEGATIVE) Urine Glucose (UA) Negative (NEGATIVE) Urine Ketones Negative (NEGATIVE) Urine Blood Negative (NEGATIVE) Urine Nitrite Negative (NEGATIVE) Urine Bilirubin Negative (NEGATIVE) Urine Urobilinogen Normal MG/DL (0.0-1.0) Urine Leukocyte Esterase 1+ (NEGATIVE) H Urine RBC 0 /HPF (0 - 2) Urine WBC 2-4 /HPF (0 - 2) Urine Squamous Epithelial Cells Few /LPF (NONE/OCC) Urine Bacteria Occasional /HPF (NONE) Last Vital Signs Date Time Temp Pulse Resp B/P (MAP) Pulse Ox O2 Delivery O2 Flow Rate FiO2 12/15/19 09:09 71 16 163/84 94 Room Air 71 12/15/19 08:00 97.8 Status: improved Disposition: SHORT-TERM HOSP Condition: Serious Referrals: NON PHYSICIAN (PCP) Stephen Win MD Dec 15, 2019 09:28
--- NOTE | 2019-12-15 10:18 | NUR ---
Nurse notes: report given to Mo at [facility], transport team at the bedside and left hand IV remains in place. patietn remians awake and talkative and able to cummunicate with no distress.
[2019-12-15 10:25] VITALS: BP 150/64
[2019-12-15 10:26] VITALS: BP 150/64
== END 2019-12-15 10:20 | disposition short-term general hospital (02) ==
LOC: EDBD 07:31 → EMR 07:44
DX: R10.9 Unspecified abdominal pain (principal); Z90.89 Acquired absence of other organs; F11.29 Opioid dependence with unspecified opioid-induced disorder; Z88.0 Allergy status to penicillin; Z88.6 Allergy status to analgesic agent; Z88.8 Allergy status to other drugs, medicaments and biological substances; J44.9 Chronic obstructive pulmonary disease, unspecified; Z86.73 Personal history of transient ischemic attack (TIA), and cerebral infarction without residual deficits
CPT/HCPCS: 36415; 80053; 81003; 83690; 85025; 96361; 96374; 99284; J1170; J7030

== ENCOUNTER 2019-12-17 18:32 | Emergency (ER) | payer MEDICARE, OTHER ==
[~2019-12-17] VITALS: Ht 165.1 cm; Wt 49.9 kg
[2019-12-17 18:36] VITALS: BP 153/103
[2019-12-17] MEDS ORDERED: Omnipaque-300 100ml vial INJ PRN (18:45)
[2019-12-17] MEDS ORDERED: HYDROmorphone 1mg/ml Carpuject IVP ONE ×2 (18:45→21:15)
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
[2019-12-17 19:21] LABS: BASOPHILS % (AUTO) 1.3 % (0.0-2.0); EOSINOPHILS % (AUTO) 1.5 % (0.0-3.0); HEMATOCRIT 36.5 % (37.0-47.0); HEMOGLOBIN 11.4 G/DL (12.0-16.0); LYMPHOCYTES % (AUTO) 28.5 % (20.0-45.0); MEAN CORPUSCULAR VOLUME 84 FL (80-99); MONOCYTES % (AUTO) 6.6 % (1.0-10.0); NEUTROPHILS % (AUTO) 62.1 % (45.0-75.0); PLATELET COUNT 328 K/UL (150-450); RED BLOOD COUNT 4.37 M/UL (4.20-5.40); RED CELL DISTRIBUTION WIDTH 18.9 % (11.6-14.8); WHITE BLOOD COUNT 6.7 K/UL (4.8-10.8)
--- NOTE | 2019-12-17 19:29 | Diagnostic Imaging Report ---
EXAM: CT Abdomen and Pelvis With Intravenous Contrast CLINICAL HISTORY: ABD PAIN TECHNIQUE: Axial computed tomography images of the abdomen and pelvis with intravenous contrast. CTDI is 3.2 mGy and DLP is 142.3 mGy-cm. One or more of the following dose reduction techniques were used: automated exposure control, adjustment of the mA and/or kV according to patient size, use of iterative reconstruction technique. Coronal and sagittal reformatted images were created and reviewed. COMPARISON: 10/13/2019 FINDINGS: Lung bases: Basilar emphysema, similar to prior. ABDOMEN: Liver: Unremarkable. No mass. Gallbladder and bile ducts: Cholecystectomy with biliary ductal prominence likely within normal limits following cholecystectomy; correlate with presentation. Pancreas: Unchanged pancreatic duct diffuse dilation since prior study, if felt to alter management. Consider outpatient MRI abdomen without and with IV contrast to further evaluate for pancreatic obstructing lesion. Spleen: Unremarkable. No splenomegaly. Adrenals: Unremarkable. No mass. Kidneys and ureters: Benign left renal 1.2 cm cyst requires no additional follow-up. Otherwise, kidneys unremarkable. No hydronephrosis. Stomach and bowel: Colonic diverticulosis without acute diverticulitis. Prominent colonic stool burden could be incidental or could be a cause for pain. No obstruction. PELVIS: Appendix: Appendix not definitively identified, no secondary signs to suggest acute appendicitis. Bladder: Urinary bladder wall thickening could be incidental, due to high outlet pressures, or could represent cystitis. Reproductive: Hysterectomy. ABDOMEN and PELVIS: Intraperitoneal space: Unremarkable. No free air. No significant fluid collection. Bones/joints: Severe osteopenia. Unchanged L3 bilateral small lysis with grade 1 anterolisthesis and degenerative associated changes. Unchanged bilateral posterior L4 and L5 decompression. No dislocation. Soft tissues: Anterior abdominal wall low midline and left paramedian irregularity could represent soft tissue wounds, correlate with presentation and physical exam. Calcified bilateral subcutaneous extensive nodularity over the buttocks of likely no acute clinical significance. Vasculature: Atherosclerotic vascular disease. No abdominal aortic aneurysm. Lymph nodes: Unremarkable. No enlarged lymph nodes. IMPRESSION: 1. Urinary bladder wall thickening could be incidental, due to high outlet pressures, or could represent cystitis. 2. Anterior abdominal wall low midline and left paramedian irregularity could represent soft tissue wounds, correlate with presentation and physical exam. 3. Prominent colonic stool burden could be incidental or could be a cause for pain. 4. Appendix not definitively identified, no secondary signs to suggest acute appendicitis. 5. Cholecystectomy with biliary ductal prominence likely within normal limits following cholecystectomy; correlate with presentation. Hysterectomy. 6. Unchanged pancreatic duct diffuse dilation since prior study, if felt to alter management. Consider outpatient MRI abdomen without and with IV contrast to further evaluate for pancreatic obstructing lesion. 7. Colonic diverticulosis without acute diverticulitis. 8. Severe osteopenia. 9. Basilar emphysema, similar to prior.
[2019-12-17 20:15] LABS: CALCIUM 9.4 MG/DL (8.5-10.1); CREATININE 1.2 MG/DL (0.55-1.30); POTASSIUM 3.8 MMOL/L (3.5-5.1)
[2019-12-17 20:21] LABS: ALBUMIN 3.3 G/DL (3.4-5.0); BILIRUBIN,TOTAL 0.5 MG/DL (0.2-1.0)
[2019-12-17 21:19] LABS: APPEARANCE,URINE SLIGHTLY CLOUDY; BILIRUBIN, URINE NEGATIVE (NEGATIVE); COLOR,URINE PALE YELLOW; GLUCOSE, URINE (UA) NEGATIVE (NEGATIVE); KETONES,URINE NEGATIVE (NEGATIVE); LEUKOCYTE ESTERASE ,URINE NEGATIVE (NEGATIVE); NITRITE,URINE NEGATIVE (NEGATIVE); PH,URINE 7 (4.5-8.0); PROTEIN,URINE 2+ (NEGATIVE); UROBILINOGEN,URINE NORMAL MG/DL (0.0-1.0)
[2019-12-17 22:00] VITALS: BP 148/98
[2019-12-17 22:23] VITALS: BP 137/89
== END 2019-12-17 22:23 | disposition short-term general hospital (02) ==
LOC: EDBD 18:32 → EMR 19:12 → EDBEDREQ 19:29 → EMR 22:23
DX: R10.30 Lower abdominal pain, unspecified (principal); Z90.89 Acquired absence of other organs; Z88.0 Allergy status to penicillin; Z88.6 Allergy status to analgesic agent; Z88.8 Allergy status to other drugs, medicaments and biological substances; R11.0 Nausea; J44.9 Chronic obstructive pulmonary disease, unspecified; Z86.73 Personal history of transient ischemic attack (TIA), and cerebral infarction without residual deficits; R00.0 Tachycardia, unspecified; M85.80 Other specified disorders of bone density and structure, unspecified site; K57.90 Diverticulosis of intestine, part unspecified, without perforation or abscess without bleeding; Z90.49 Acquired absence of other specified parts of digestive tract; Z90.710 Acquired absence of both cervix and uterus
CPT/HCPCS: 36415; 74177; 80053; 81003; 83690; 85025; 96374; 96375; 96376; 99284; J1170; J2405; Q9965; U0002

== ENCOUNTER 2019-12-21 10:37 | Emergency (ER) | payer MEDICARE, OTHER ==
[~2019-12-21] VITALS: Ht 170.2 cm; Wt 54.4 kg
--- NOTE | 2019-12-21 10:51 | Emergency Room Report ---
History of Present Illness General Chief Complaint: Pain Source: Patient, Medical Record Present Illness HPI Disclaimer: Please note that this report is being documented using DRAGON technology. This can lead to erroneous entry secondary to incorrect interpretation by the dictating instrument. HPI: 69-year-old female history of lupus and chronic pain presents complaining of pain. Patient was in the emergency department earlier today. She had a recent appendectomy was complaining of left lower quadrant pain but refused labs and imaging requesting only a shot of pain medication. She takes Tylenol No. 4's after her surgery but states they are not controlling her pain at home. She was discharged from the ED and states once the pain medication wore off she had to return for increased pain. Is also complaining of generalized pain over the chest, arms and legs as well as the upper abdomen. States she has been moving her bowels after her surgery and passing gas. Denied fever or chills. PMH: Lupus, COPD, GERD PSH: Cholecystectomy, appendectomy, spinal surgery Allergies: Haldol, azithromycin, aspirin, ampicillin, NSAIDS, Toradol Social Hx: chronic opioid use Allergies: Coded Allergies: KETOROLAC TROMETHAMINE (Verified Allergy, Severe, Anaphylaxis, 10/22/18) PENICILLINS (Verified Allergy, Severe, Anaphylaxis, 10/22/18) TETRACYCLINE (Verified Allergy, Severe, Anaphylaxis, 10/22/18) HALOPERIDOL LACTATE (Verified Allergy, Intermediate, Anaphylaxis, 10/22/18) ERYTHROMYCIN BASE (Verified Allergy, Mild, 10/22/18) AMPICILLIN (Verified Allergy, Unknown, 10/22/18) ASPIRIN (Verified Allergy, Unknown, 10/22/18) AZITHROMYCIN (Unverified Allergy, Unknown, 04/17/19) IBUPROFEN (Verified Allergy, Unknown, 10/22/18) NAPROXEN (Verified Allergy, Unknown, 10/22/18) COVID-19 Screening Contact w/high risk pt: No Recent Travel to affected area: No Experienced COVID-19 symptoms?: No COVID-19 symptoms experienced: Shortness of Breath, Cough COVID-19 Testing performed ELECTRICIAN CONTROL EQUIPMENT: Yes COVID-19 Screening: Negative COVID-19 COVID-19 Testing Source: nasopharynx Patient History Now: No Nursing Documentation-PMH Past Medical History: No History, Except For Hx Hypertension: No Hx Pacemaker: No Hx Asthma: Yes Hx COPD: Yes Hx Diabetes: No Hx Cancer: No Hx Gastrointestinal Problems: No Hx Dialysis: No Hx Neurological Problems: Yes Hx Cerebrovascular Accident: Yes - stroke Hx Seizures: No Hx Weakness: Yes Hx Neurologic Surgery: No Hx Brain Shunt: No Review of Systems All Other Systems: negative except mentioned in HPI Physical Exam Vital Signs Date Time Temp Pulse Resp B/P (MAP) Pulse Ox O2 Delivery O2 Flow Rate FiO2 12/21/19 10:38 97.5 104 18 140/90 (107) 94 General: Awake and alert, no acute distress HEENT: NC/AT. EOMI. Cardiovascular: RRR. S1 and S2 normal. No murmur appreciated Resp: Normal work of breathing. No cough, wheezing or crackles appreciated Abdomen: Abdomen is soft, nondistended. Mild diffuse tenderness to palpation over the entire abdomen. Surgical scars on the suprapubic region left lower quadrant are clean dry and intact. No bleeding, no purulent drainage, no surrounding edema or erythema. Skin: Intact. Patchy areas of discoloration consistent with vitiligo and alopecia as well. MSK: Normal tone and bulk. Moving all extremities. No obvious deformity. Neuro: Awake and alert. Mentating appropriately. Medical Decision Making Diagnostic Impression: Primary Impression: Abdominal pain Additional Impression: Constipation ER Course 69-year-old female history of lupus and recent appendectomy presents for evaluation of generalized pain. EKG is nonischemic. She initially reported chest pain but now denied. Recent appendectomy has caused her significant p ostop pain including her visit for earlier this morning when she initially refused work-up and imaging. She has had multiple CTs in the past week which have returned with chronic findings but no findings of postsurgical abnormalities. Chest x-ray shows mild vascular congestion but not significantly changed from previous x-ray on 12/07/2019. She has no respiratory symptoms at this time. Abdomen and the x-ray was obtained does not show signs of obstruction but does show constipation. This may be the cause of her pain in addition to her postop pain. Will prescribe stool softener. She is requesting IV pain medication however I am concerned of the patient's multiple presentations to the emergency department for narcotics. I did provide oral analgesic. She is feeling better and is calm and cooperative. I instructed her to follow-up with her surgeon to discuss her recurrent postop pain. Laboratory Tests Test 12/21/19 11:30 Sodium Level 142 MMOL/L (136-145) Potassium Level 3.5 MMOL/L (3.5-5.1) Chloride Level 108 MMOL/L (98-107) H Carbon Dioxide Level 23 MMOL/L (21-32) Anion Gap 11 mmol/L (5-15) Blood Urea Nitrogen 7 mg/dL (7-18) Creatinine 0.8 MG/DL (0.55-1.30) Estimated Glomerular Filtration Rate > 60 mL/min (>60) Glucose Level 103 MG/DL (74-106) Calcium Level 9.4 MG/DL (8.5-10.1) Total Bilirubin 0.8 MG/DL (0.2-1.0) Aspartate Amino Transferase (AST) 17 U/L (15-37) Alanine Aminotransferase (ALT) 15 U/L (12-78) Alkaline Phosphatase 86 U/L (46-116) Troponin I 0.007 ng/mL (0.000-0.056) Total Protein 7.1 G/DL (6.4-8.2) Albumin 3.3 G/DL (3.4-5.0) L Globulin 3.8 g/dL Albumin/Globulin Ratio 0.9 (1.0-2.7) L Lipase 103 U/L (73-393) EKG Diagnostic Results Troponin ordered: Yes When was troponin ordered?: Dec 21, 2019 EKG Time: 10:49 Rate: normal Rhythm: NSR ST Segments: no acute changes Other Impression Sinus rhythm, borderline left axis, nonspecific ST changes. No ST segment elevation. Rhythm Strip Diag. Results Rhythm Strip Time: 10:49 EP Interpretation: yes Rate: 90 Rhythm: NSR, no PVC's, no ectopy Chest X-Ray Diagnostic Results Chest X-Ray Diagnostic Results : Chest X-Ray Ordered: Yes # of Views/Limited/Complete: 1 View Indication: Other - Pain EP Interpretation: Yes Interpretation: no consolidation, no effusion, no pneumothorax, no acute cardiopulmonary disease - Mild vascular congestion Impression: Other - Vascular congestion Electronically Signed by: Electronically signed by Dr. Filemon Winters Other X-Ray Diagnostic Results Other X-Ray Diagnostic Results : X-Ray ordered: Abdomen # of Views/Limited Vs Complete: 1 View Indication: Pain EP Interpretation: Yes Interpretation: nonspecific bowel gas, no sbo, other - Constipation noted by radiologist Impression: Other - Moderate stool burden per radiology Electronically Signed by: Electronically signed by Dr. Filemon Winters Last Vital Signs Date Time Temp Pulse Resp B/P (MAP) Pulse Ox O2 Delivery O2 Flow Rate FiO2 12/21/19 10:38 97.5 104 18 140/90 (107) 94 Disposition: HOME, SELF-CARE Condition: Stable Scripts Docusate Sodium* (DOCUSATE SODIUM*) 100 Mg Capsule 100 MG ORAL THREE TIMES A DAY, #30 CAP Prov: Filemon Winters MD 12/21/19 Filemon Winters MD Dec 21, 2019 10:51
[2019-12-21] MEDS ORDERED: Tylenol #3 tab (300mg/30mg) ORAL ONE (11:00)
--- NOTE | 2019-12-21 11:01 | NUR ---
ED Nurse Note: xray at pt bedside
[2019-12-21 11:30] VITALS: BP 140/90
--- NOTE | 2019-12-21 11:30 | Diagnostic Imaging Report ---
EXAM: XR Chest, 1 View CLINICAL HISTORY: Chest pain TECHNIQUE: Frontal view of the chest. COMPARISON: Chest x-ray dated 12/07/19 FINDINGS: Lungs: Mildly increased interstitial markings. The lungs are otherwise clear without focal consolidation. Pleural space: Unremarkable. The costophrenic angles are sharp. No visible pneumothorax. Heart: Unremarkable. No cardiomegaly. Mediastinum: Unremarkable. Bones/joints: Unremarkable. Vasculature: Atherosclerotic calcifications within the aortic arch. IMPRESSION: Mildly increased interstitial markings. This is nonspecific and may represent mild pulmonary vascular congestion versus mild bronchitis or pneumonitis. No focal consolidation.
--- NOTE | 2019-12-21 11:33 | Diagnostic Imaging Report ---
EXAM: XR Abdomen, 2 Views CLINICAL HISTORY: Chest pain TECHNIQUE: Frontal view of the abdomen/pelvis with upright view of the abdomen. COMPARISON: CT abdomen and pelvis dated 12/17/19. Abdominal x-ray dated 05/15/19. FINDINGS: Intraperitoneal space: No free air. Gastrointestinal tract: Moderate volume stool in the descending colon which may suggest mild constipation. The bowel gas pattern is otherwise unremarkable. No evidence of pneumatosis intestinalis. Organs: Surgical clips in the right upper abdominal quadrant suggest prior cholecystectomy. The renal shadows are partially obscured by bowel gas. No evidence of organomegaly. No evidence of portal venous gas. Bones/joints: Multilevel degenerative disc space loss throughout the visualized spine. Vasculature: No significant change in appearance of coarse soft tissue calcifications in the pelvis bilaterally. No significant change in subcentimeter pelvic phleboliths bilaterally. IMPRESSION: Moderate volume stool in the descending colon which may suggest mild constipation.
[2019-12-21] MEDS ORDERED: HYDROcodone/Acetamin 7.5/325 tab ORAL ONE (12:30)
[2019-12-21 12:36] LABS: CHLORIDE 108 MMOL/L (98-107); POTASSIUM 3.5 MMOL/L (3.5-5.1); SODIUM 142 MMOL/L (136-145)
[2019-12-21 12:37] LABS: ALANINE AMINOTRANSFERASE 15 U/L (12-78); ALBUMIN 3.3 G/DL (3.4-5.0); ALBUMIN/GLOBULIN RATIO 0.9 (1.0-2.7); ALKALINE PHOSPHATASE 86 U/L (46-116); ANION GAP 11 mmol/L (5-15); ASPARTATE AMINO TRANSFERASE 17 U/L (15-37); BILIRUBIN,TOTAL 0.8 MG/DL (0.2-1.0); BLOOD UREA NITROGEN 7 mg/dL (7-18); CALCIUM 9.4 MG/DL (8.5-10.1); CARBON DIOXIDE 23 MMOL/L (21-32); CREATININE 0.8 MG/DL (0.55-1.30)
[2019-12-21] MEDS ORDERED: DOCUSATE SODIU100 MG ORAL ×2 (12:42)
[2019-12-21 13:48] VITALS: BP 143/88
--- NOTE | 2019-12-21 13:48 | NUR ---
ED Nurse Note: Pt cleared by health care Provider for discharge. DC instructions/prescription were given and explained to pt and verbalized understanding of teachings. All medical devices such as ID band removed. Pt is AAO x4, ambulatory using walker and left with all personal belongings.
== END 2019-12-21 13:48 | disposition home or self-care (01) ==
LOC: EDBD 10:37 → EMR 11:02
DX: R10.32 Left lower quadrant pain (principal); K59.00 Constipation, unspecified; Z86.73 Personal history of transient ischemic attack (TIA), and cerebral infarction without residual deficits; J44.9 Chronic obstructive pulmonary disease, unspecified; Z90.89 Acquired absence of other organs; K21.9 Gastro-esophageal reflux disease without esophagitis; Z90.49 Acquired absence of other specified parts of digestive tract; Z88.0 Allergy status to penicillin; Z88.6 Allergy status to analgesic agent; Z88.8 Allergy status to other drugs, medicaments and biological substances; Z98.890 Other specified postprocedural states; L65.9 Nonscarring hair loss, unspecified
CPT/HCPCS: 36415; 71045; 74018; 80053; 83690; 84484; 93005; 99284

== ENCOUNTER 2019-12-23 09:19 | Emergency (ER) | payer MEDICARE, OTHER ==
[~2019-12-23] VITALS: Ht 162.6 cm; Wt 59.0 kg
[~2019-12-23 09:19] MED LIST changes: +DOCUSATE SODIU100 MG ORAL
--- NOTE | 2019-12-23 09:40 | NUR ---
ED Nurse Note: brought by RA 61 from home due to CP since last night, non-radiating. Breathing normal/even/unlabored. Skin warm/dry. NAD noted. Denies SOB. A/Ox4. Per EMS, pt was discharged from [facility] yesterday but does not know why she was hospitalized.
[2019-12-23 09:42] VITALS: BP 157/81
[2019-12-23] MEDS ORDERED: HYDROmorphone 1mg/ml Carpuject IVP ONE (09:45)
[2019-12-23] MEDS ORDERED: DiphenhydrAMINE 50mg/ml Inj IVP ONE (09:45)
[2019-12-23] MEDS ORDERED: Dicyclomine HCl 10mg/5ml oral soln ORAL ONE (09:45)
[2019-12-23] MEDS ORDERED: Mylanta II UD 30ml ORAL ONE (09:45)
[2019-12-23] MEDS ORDERED: Lidocaine 2% Visc 15ml soln ORAL ONE (09:45)
[2019-12-23] MEDS ORDERED: Metoclopramide 10mg/2ml Inj IVP ONE (09:45)
--- NOTE | 2019-12-23 09:50 | Emergency Room Report ---
History of Present Illness General Chief Complaint: Chest Pain Source: Patient Present Illness HPI 69-year-old female seen here many times in the past for recurrent abdominal pain here again with abdominal pain. Patient says that she feels sharp pain in her epigastric region. Patient recently had an appendectomy at an outside hospital. She has been here many times in the past several days for this same complaint. She was admitted at [facility] 2 days ago and discharged yesterday. Pain is sharp in nature, located in the epigastric region, does not otherwise radiate. Had a normal bowel movement yesterday. Is passing gas. No nausea or vomiting. Allergies: Coded Allergies: KETOROLAC TROMETHAMINE (Verified Allergy, Severe, Anaphylaxis, 10/22/18) PENICILLINS (Verified Allergy, Severe, Anaphylaxis, 10/22/18) TETRACYCLINE (Verified Allergy, Severe, Anaphylaxis, 10/22/18) HALOPERIDOL LACTATE (Verified Allergy, Intermediate, Anaphylaxis, 10/22/18) ERYTHROMYCIN BASE (Verified Allergy, Mild, 10/22/18) AMPICILLIN (Verified Allergy, Unknown, 10/22/18) ASPIRIN (Verified Allergy, Unknown, 10/22/18) AZITHROMYCIN (Unverified Allergy, Unknown, 04/17/19) IBUPROFEN (Verified Allergy, Unknown, 10/22/18) NAPROXEN (Verified Allergy, Unknown, 10/22/18) COVID-19 Screening Contact w/high risk pt: No Recent Travel to affected area: No Experienced COVID-19 symptoms?: No COVID-19 symptoms experienced: Shortness of Breath, Cough COVID-19 Testing performed PRECISION AGRICULTURE SPECIALIST: No Patient History Last Menstrual Period: na Nursing Documentation-PMH Past Medical History: No History, Except For Hx Hypertension: Yes Hx Pacemaker: No Hx Asthma: Yes Hx COPD: Yes Hx Diabetes: No Hx Cancer: No Hx Gastrointestinal Problems: No Hx Dialysis: No Hx Neurological Problems: Yes Hx Cerebrovascular Accident: Yes - stroke Hx Seizures: No Hx Weakness: Yes Hx Neurologic Surgery: No Hx Brain Shunt: No Review of Systems All Other Systems: negative except mentioned in HPI Physical Exam Vital Signs Date Time Temp Pulse Resp B/P (MAP) Pulse Ox O2 Delivery O2 Flow Rate FiO2 12/23/19 09:19 97.3 97 18 157/97 (117) 96 Room Air Sp02 EP Interpretation: reviewed, normal General Appearance: no apparent distress, alert, non-toxic Head: normocephalic, atraumatic Eyes: bilateral eye normal inspection, bilateral eye PERRL ENT: hearing grossly normal, normal pharynx, no angioedema, normal voice Neck: full range of motion, supple/symm/no masses Respiratory: chest non-tender, lungs clear, normal breath sounds, speaking full sentences Cardiovascular #1: regular rate, rhythm, no edema Cardiovascular #2: 2+ carotid (R), 2+ carotid (L), 2+ radial (R), 2+ radial (L), 2+ dorsalis pedis (R), 2+ dorsalis pedis (L) Gastrointestinal: normal bowel sounds, soft, non-distended, no guarding, no rebound, other - Tenderness on palpation of epigastric region. No abdominal distention, rebound, guarding. Lower midline surgical incision is clean dry and intact Rectal: deferred Genitourinary: normal inspection, no CVA tenderness Musculoskeletal: back normal, normal range of motion, gait/station normal, non- tender Neurologic: alert, motor strength/tone normal, oriented x3, sensory intact, responsive, speech normal Psychiatric: judgement/insight normal, memory normal, mood/affect normal, no suicidal/homicidal ideation Lymphatic: no adenopathy Medical Decision Making Diagnostic Impression: Primary Impression: Abdominal pain Additional Impression: Drug-seeking behavior ER Course Laboratory Tests Test 12/23/19 10:07 12/23/19 10:17 Lipase 103 U/L (73-393) White Blood Count 5.0 K/UL (4.8-10.8) Red Blood Count 4.81 M/UL (4.20-5.40) Hemoglobin 12.1 G/DL (12.0-16.0) Hematocrit 40.1 % (37.0-47.0) Mean Corpuscular Volume 83 FL (80-99) Mean Corpuscular Hemoglobin 25.2 PG (27.0-31.0) L Mean Corpuscular Hemoglobin Concent 30.2 G/DL (32.0-36.0) L Red Cell Distribution Width 17.7 % (11.6-14.8) H Platelet Count 362 K/UL (150-450) Mean Platelet Volume 6.1 FL (6.5-10.1) L Neutrophils (%) (Auto) 55.8 % (45.0-75.0) Lymphocytes (%) (Auto) 27.9 % (20.0-45.0) Monocytes (%) (Auto) 11.9 % (1.0-10.0) H Eosinophils (%) (Auto) 3.1 % (0.0-3.0) H Basophils (%) (Auto) 1.3 % (0.0-2.0) Sodium Level 142 MMOL/L (136-145) Potassium Level 3.5 MMOL/L (3.5-5.1) Chloride Level 107 MMOL/L (98-107) Carbon Dioxide Level 25 MMOL/L (21-32) Anion Gap 10 mmol/L (5-15) Blood Urea Nitrogen 12 mg/dL (7-18) Creatinine 0.9 MG/DL (0.55-1.30) Estimated Glomerular Filtration Rate > 60 mL/min (>60) Glucose Level 98 MG/DL (74-106) Calcium Level 9.3 MG/DL (8.5-10.1) Total Bilirubin 1.1 MG/DL (0.2-1.0) H Direct Bilirubin 0.2 MG/DL (0.0-0.3) Aspartate Amino Transferase (AST) 18 U/L (15-37) Alanine Aminotransferase (ALT) 17 U/L (12-78) Alkaline Phosphatase 87 U/L (46-116) Troponin I 0.000 ng/mL (0.000-0.056) Total Protein 8.0 G/DL (6.4-8.2) Albumin 3.6 G/DL (3.4-5.0) Globulin 4.4 g/dL Albumin/Globulin Ratio 0.8 (1.0-2.7) L EKG: Rate 91 bpm, NSR, no ischemia, intervals WNL. No ectopy Rhythm strip: patient monitored for arrhythmias - no malignant dysrhythmias, runs of PVCs, nor pauses noted Chest x-ray: Mild pulmonary vascular congestion unchanged from previous chest x- ray. No cardiomegaly. No free air under the diaphragm. No consolidations 69-year-old female here with epigastric abdominal pain. Patient has been here many times for the same complaints. Patient says that she has been having normal bowel movements and denies vomiting. She had a nondistended mildly tender abdomen in the epigastric region. Patient was repeatedly asking for IV Dilaudid and refused any other form of pain medication. She was given IV Dilaudid and says that her symptoms completely resolved. She was in no acute distress. Her abdomen was nonperitoneal and her surgical wounds appear to be well-healed. No evidence of severe infection or obstruction at this time. Patient was told to follow-up with her surgeon. Discharged in stable condition. Last Vital Signs Date Time Temp Pulse Resp B/P (MAP) Pulse Ox O2 Delivery O2 Flow Rate FiO2 12/23/19 09:42 97.3 68 18 157/81 97 Room Air Anthony Rincon M.D. Dec 23, 2019 09:50
--- NOTE | 2019-12-23 09:55 | NUR ---
ED Nurse Note: unable to obtain IV access at this time. Notified ERMD.
[2019-12-23 10:32] LABS: BASOPHILS % (AUTO) 1.3 % (0.0-2.0); EOSINOPHILS % (AUTO) 3.1 % (0.0-3.0); HEMATOCRIT 40.1 % (37.0-47.0); HEMOGLOBIN 12.1 G/DL (12.0-16.0); LYMPHOCYTES % (AUTO) 27.9 % (20.0-45.0); MEAN CORPUSCULAR VOLUME 83 FL (80-99); MONOCYTES % (AUTO) 11.9 % (1.0-10.0); NEUTROPHILS % (AUTO) 55.8 % (45.0-75.0); PLATELET COUNT 362 K/UL (150-450); RED BLOOD COUNT 4.81 M/UL (4.20-5.40); RED CELL DISTRIBUTION WIDTH 17.7 % (11.6-14.8)
[2019-12-23 10:49] LABS: ANION GAP 10 mmol/L (5-15); BLOOD UREA NITROGEN 12 mg/dL (7-18); CALCIUM 9.3 MG/DL (8.5-10.1); CARBON DIOXIDE 25 MMOL/L (21-32); CHLORIDE 107 MMOL/L (98-107); CREATININE 0.9 MG/DL (0.55-1.30); POTASSIUM 3.5 MMOL/L (3.5-5.1); SODIUM 142 MMOL/L (136-145)
[2019-12-23 11:00] LABS: ALANINE AMINOTRANSFERASE 17 U/L (12-78); ALBUMIN 3.6 G/DL (3.4-5.0); ALBUMIN/GLOBULIN RATIO 0.8 (1.0-2.7); ALKALINE PHOSPHATASE 87 U/L (46-116); ASPARTATE AMINO TRANSFERASE 18 U/L (15-37); BILIRUBIN,TOTAL 1.1 MG/DL (0.2-1.0)
[2019-12-23 11:01] LABS: BILIRUBIN,DIRECT 0.2 MG/DL (0.0-0.3)
[2019-12-23 11:40] VITALS: BP 145/73
--- NOTE | 2019-12-23 11:40 | NUR ---
ED Nurse Note: Pt cleared by ERMD for discharge. DC instructions was given and explained to pt and verbalized understanding of teachings. All medical deviecs such as ID band and IV line removed. Pt is AAO x4, ambulatory and left with all personal belongings. Transpo provided.
--- NOTE | 2019-12-23 15:48 | Diagnostic Imaging Report ---
Indication: Chest pain Technique: One view of the chest Comparison: 12/21/2019 Findings: Generalized hyperinflation, right upper lung bullous changes are again demonstrated. Some scarring is seen in the right costophrenic sulcus. The heart size is normal. No definite acute infiltrates or effusions. Impression: No acute process COPD changes
== END 2019-12-23 11:40 | disposition home or self-care (01) ==
LOC: EDSEX → EDBD 09:19 → EMR 09:40
DX: R10.13 Epigastric pain (principal); Z76.5 Malingerer [conscious simulation]; Z90.89 Acquired absence of other organs; Z88.0 Allergy status to penicillin; Z88.6 Allergy status to analgesic agent; Z88.8 Allergy status to other drugs, medicaments and biological substances; I10 Essential (primary) hypertension; J44.9 Chronic obstructive pulmonary disease, unspecified; Z86.73 Personal history of transient ischemic attack (TIA), and cerebral infarction without residual deficits
CPT/HCPCS: 36415; 71045; 80053; 82248; 83690; 84484; 85025; 93005; 96374; 96375; 99284; J1170; J1200; J2765

== ENCOUNTER 2019-12-25 09:58 | Emergency (ER) | payer MEDICARE, OTHER ==
[~2019-12-25] VITALS: Ht 165.1 cm; Wt 49.9 kg
[2019-12-25 09:58] VITALS: BP 142/89
[2019-12-25] MEDS ORDERED: HYDROmorphone 1mg/ml Carpuject IM ONE (10:30)
[2019-12-25 10:54] VITALS: BP 146/81
--- NOTE | 2019-12-27 17:04 | Emergency Room Report ---
History of Present Illness General Chief Complaint: Pain Source: Patient, Medical Record Present Illness HPI 69-year-old female presents for evaluation. Brought in by EMS from home. States she is having generalized pain. History of lupus. Patient is well-known to [facility]. Pain is 10 out of 10, sharp, nonradiating. Denies chest pain or shortness of breath. Denies fevers or chills. No other aggravating relieving factors. Denies any other associated symptoms Allergies: Coded Allergies: KETOROLAC TROMETHAMINE (Verified Allergy, Severe, Anaphylaxis, 10/22/18) PENICILLINS (Verified Allergy, Severe, Anaphylaxis, 10/22/18) TETRACYCLINE (Verified Allergy, Severe, Anaphylaxis, 10/22/18) HALOPERIDOL LACTATE (Verified Allergy, Intermediate, Anaphylaxis, 10/22/18) ERYTHROMYCIN BASE (Verified Allergy, Mild, 10/22/18) AMPICILLIN (Verified Allergy, Unknown, 10/22/18) ASPIRIN (Verified Allergy, Unknown, 10/22/18) AZITHROMYCIN (Unverified Allergy, Unknown, 04/17/19) IBUPROFEN (Verified Allergy, Unknown, 10/22/18) NAPROXEN (Verified Allergy, Unknown, 10/22/18) COVID-19 Screening Contact w/high risk pt: No Recent Travel to affected area: No Experienced COVID-19 symptoms?: No COVID-19 symptoms experienced: Shortness of Breath, Cough COVID-19 Testing performed HOSPITAL CARRIER: No Patient History Past Medical History: HTN, asthma, COPD Past Surgical History: none Pertinent Family History: none Social History: Denies: smoking, alcohol use, drug use Immunizations: UTD Reviewed Nursing Documentation: PMH: Agreed; PSxH: Agreed Nursing Documentation-PMH Past Medical History: No History, Except For Hx Hypertension: Yes Hx Pacemaker: No Hx Asthma: Yes Hx COPD: Yes Hx Diabetes: No Hx Cancer: No Hx Gastrointestinal Problems: No Hx Dialysis: No Hx Neurological Problems: Yes Hx Cerebrovascular Accident: Yes - stroke Hx Seizures: No Hx Weakness: Yes Hx Neurologic Surgery: No Hx Brain Shunt: No Review of Systems All Other Systems: negative except mentioned in HPI Physical Exam Vital Signs Date Time Temp Pulse Resp B/P (MAP) Pulse Ox O2 Delivery O2 Flow Rate FiO2 12/25/19 09:42 98.8 92 16 150/94 (112) 98 Room Air Sp02 EP Interpretation: reviewed, normal General Appearance: no apparent distress, alert, GCS 15, non-toxic Head: normocephalic, atraumatic Eyes: bilateral eye normal inspection, bilateral eye PERRL ENT: hearing grossly normal, normal pharynx, no angioedema, normal voice Neck: full range of motion, supple/symm/no masses Respiratory: chest non-tender, lungs clear, normal breath sounds, speaking full sentences Cardiovascular #1: regular rate, rhythm, no edema Cardiovascular #2: 2+ carotid (R), 2+ carotid (L), 2+ radial (R), 2+ radial (L), 2+ dorsalis pedis (R), 2+ dorsalis pedis (L) Gastrointestinal: normal bowel sounds, non tender, soft, non-distended, no guarding, no rebound Rectal: deferred Genitourinary: normal inspection, no CVA tenderness Musculoskeletal: back normal, normal range of motion, gait/station normal, non- tender Neurologic: alert, motor strength/tone normal, oriented x3, sensory intact, responsive, speech normal Psychiatric: judgement/insight normal, memory normal, mood/affect normal, no suicidal/homicidal ideation Reflexes: 3+ bicep (R), 3+ bicep (L), 3+ tricep (R), 3+ tricep (L), 3+ knee (R), 3+ knee (L) Skin: other - Malar rash Lymphatic: no adenopathy Medical Decision Making Diagnostic Impression: Primary Impression: Total body pain Additional Impression: Chronic pain Qualified Codes: G89.29 - Other chronic pain ER Course 69-year-old female presents for generalized pain. History of lupus Differentialchronic pain, lupus flare, opioid dependence Placed on stretcher. After initial history and physical I reviewed EMR. Patient is well-known to [facility] and has been here multiple times. I recently saw this patient status post appendectomy and was having a lot of pain at that time. I performed a CT which was negative. Patient was still admitted due to intractable pain. Patient has been seen here since discharge and has had significant work-ups. It were negative I see no reason to repeat work-up at this time. Patient given 1 dose of pain medication. Abdomen soft. We will discharge home. States she will follow-up with her PMD and pain management Diagnosischronic pain, total body pain Stable and discharged to home. Follow-up with PMD. Return to ED if symptoms recur or worsen Last Vital Signs Date Time Temp Pulse Resp B/P (MAP) Pulse Ox O2 Delivery O2 Flow Rate FiO2 12/25/19 10:54 98.3 81 20 146/81 96 Room Air Status: improved Disposition: HOME, SELF-CARE Condition: Stable Referrals: [facility] Patient Instructions: Chronic Pain Additional Instructions: you need to followup with pain management as an outpatient. Stephen Win MD Dec 27, 2019 17:04
== END 2019-12-25 10:54 | disposition home or self-care (01) ==
LOC: EDSEX → EDBD 09:58 → EMR 10:30
DX: G89.29 Other chronic pain (principal); R52 Pain, unspecified; Z88.0 Allergy status to penicillin; Z88.6 Allergy status to analgesic agent; Z88.8 Allergy status to other drugs, medicaments and biological substances; I10 Essential (primary) hypertension; J44.9 Chronic obstructive pulmonary disease, unspecified; Z86.73 Personal history of transient ischemic attack (TIA), and cerebral infarction without residual deficits; Z90.89 Acquired absence of other organs
CPT/HCPCS: 99282; J1170

== ENCOUNTER 2019-12-28 08:59 | Emergency (ER) | payer MEDICARE, OTHER ==
[~2019-12-28] VITALS: Ht 170.2 cm; Wt 54.4 kg
[2019-12-28 09:00] VITALS: BP 138/72
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
[2019-12-28] MEDS ORDERED: oxyCODONE HCL/Acetaminophen 5/325mg ORAL ONE (09:15)
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
--- NOTE | 2019-12-28 09:30 | NUR ---
ED Nurse Note: xray @ bedside
[2019-12-28 09:34] LABS: HEMATOCRIT 39.3 % (37.0-47.0); MEAN CORPUSCULAR VOLUME 85 FL (80-99); PLATELET COUNT 194 K/UL (150-450); RED CELL DISTRIBUTION WIDTH 17.4 % (11.6-14.8)
[2019-12-28 09:36] LABS: WHITE BLOOD COUNT 1.8 K/UL (4.8-10.8)
[2019-12-28 10:08] LABS: ANION GAP 5 mmol/L (5-15); BLOOD UREA NITROGEN 8 mg/dL (7-18); CALCIUM 8.8 MG/DL (8.5-10.1); CARBON DIOXIDE 28 MMOL/L (21-32); CHLORIDE 109 MMOL/L (98-107); CREATININE 0.8 MG/DL (0.55-1.30); POTASSIUM 3.2 MMOL/L (3.5-5.1); SODIUM 142 MMOL/L (136-145)
[2019-12-28 10:12] LABS: ALANINE AMINOTRANSFERASE 17 U/L (12-78); ALBUMIN 3.3 G/DL (3.4-5.0); ALBUMIN/GLOBULIN RATIO 0.8 (1.0-2.7); ALKALINE PHOSPHATASE 80 U/L (46-116); ASPARTATE AMINO TRANSFERASE 22 U/L (15-37); BILIRUBIN,TOTAL 0.5 MG/DL (0.2-1.0)
--- NOTE | 2019-12-28 10:22 | Diagnostic Imaging Report ---
EXAM: XR Chest, 1 View CLINICAL HISTORY: ABD PAIN TECHNIQUE: Frontal view of the chest. COMPARISON: No relevant prior studies available. FINDINGS/IMPRESSION: Hyperinflation with mild flattening of the diaphragms, consistent with COPD. Associated, emphysematous changes. Mild increased markings at the lower lung reese, suspicious for chronic interstitial markings. No pleural effusion. No pneumothorax. Cardiomegaly. Calcified aorta.
--- NOTE | 2019-12-28 10:25 | Diagnostic Imaging Report ---
EXAM: XR Abdomen, 2 Views CLINICAL HISTORY: ABD PAIN TECHNIQUE: Frontal view of the abdomen/pelvis with upright view of the abdomen. COMPARISON: CT abdomen and pelvis December 17, 2019. FINDINGS: Nonobstructed bowel gas pattern. No large volume free air on the single supine image. Cholecystectomy clips, incidentally noted. Numerous calcified densities project over the pelvis, which are indeterminate and may represent soft tissue calcifications. Severe demineralization. Severe degenerative changes of the lumbar spine. No definite pelvic fracture. IMPRESSION: Nonobstructed bowel gas pattern. No large volume free air on the single supine image. Correlate with CT abdomen and pelvis from December 17, 2019.
[2019-12-28 11:00] VITALS: BP 135/79
--- NOTE | 2019-12-28 11:30 | NUR ---
ED Nurse Note: pt unable to provide urine sample at this time. ED MD aware
--- NOTE | 2019-12-28 12:18 | NUR ---
ED Nurse Note: Report given to BRENDA Hassan @ [facility]
[2019-12-28 12:28] VITALS: BP 141/74
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
--- NOTE | 2020-01-01 04:11 | Cardiology Report ---
APPROVED REPORT EKG Measurement Heart [id number] <Conclusion> Sinus rhythm with premature ventricular complexes Septal infarct, age undetermined ST & T wave abnormality, consider inferior ischemia Abnormal ECG
== END 2019-12-28 12:28 | disposition short-term general hospital (02) ==
LOC: EDSEX 08:59 → EDBD 08:59 → EMR 09:40
DX: J44.1 Chronic obstructive pulmonary disease with (acute) exacerbation (principal); D70.8 Other neutropenia; R10.84 Generalized abdominal pain; M32.19 Other organ or system involvement in systemic lupus erythematosus; T74.91XD Unspecified adult maltreatment, confirmed, subsequent encounter; Z76.5 Malingerer [conscious simulation]; Z90.89 Acquired absence of other organs; Z88.0 Allergy status to penicillin; Z88.6 Allergy status to analgesic agent; Z88.8 Allergy status to other drugs, medicaments and biological substances; Z90.49 Acquired absence of other specified parts of digestive tract; I10 Essential (primary) hypertension; Z86.73 Personal history of transient ischemic attack (TIA), and cerebral infarction without residual deficits; H26.9 Unspecified cataract; I49.8 Other specified cardiac arrhythmias; I51.7 Cardiomegaly
CPT/HCPCS: 36415; 71045; 74018; 80053; 83690; 84484; 85007; 85025; 93005; 99285

== ENCOUNTER 2020-04-22 09:52 | Emergency (ER) | payer MEDICARE, OTHER ==
[~2020-04-22] VITALS: Ht 165.1 cm; Wt 59.0 kg
[2020-04-22 09:54] VITALS: BP 156/92
--- NOTE | 2020-04-22 09:58 | NUR ---
ERMD accessed iv through the EJ left side
--- NOTE | 2020-04-22 09:58 | NUR ---
pt stated she has been having abd pain for weeks, hasn't been in for 4mths
[2020-04-22] MEDS ORDERED: HYDROmorphone 1mg/ml Carpuject IM ONE (10:00)
[2020-04-22] MEDS ORDERED: DiphenhydrAMINE 50mg/ml Inj IVP ONE (10:00)
[2020-04-22 10:03] VITALS: BP 152/68
--- NOTE | 2020-04-22 10:04 | Emergency Room Report ---
History of Present Illness General Chief Complaint: Abdominal Pain Source: Patient Present Illness HPI Patient presents to the emergency department today complaining of abdominal pain. Patient has had a history of multiple presentations emergency department. However on her last presentation she had leukopenia. Patient was actually admitted to outside facility. She presents today complaining abdominal disc omfort fairly typical for her usual exacerbation. She denies any fever nausea vomiting. She denies Covid exposure. She states that she has some runny stools. Denies any fever. No cough or runny nose. She does have chronic COPD states that she has typical wheezing at rest. This is usual for her. No other complaints are noted. Symptoms noted to be moderate to severe. No other modifying factors. No other associated signs and symptoms. No other complaints were noted. Symptoms have been going on for greater than 1 week. Allergies: Coded Allergies: KETOROLAC TROMETHAMINE (Verified Allergy, Severe, Anaphylaxis, 10/22/18) PENICILLINS (Verified Allergy, Severe, Anaphylaxis, 10/22/18) TETRACYCLINE (Verified Allergy, Severe, Anaphylaxis, 10/22/18) HALOPERIDOL LACTATE (Verified Allergy, Intermediate, Anaphylaxis, 10/22/18) ERYTHROMYCIN BASE (Verified Allergy, Mild, 10/22/18) AMPICILLIN (Verified Allergy, Unknown, 10/22/18) ASPIRIN (Verified Allergy, Unknown, 10/22/18) AZITHROMYCIN (Unverified Allergy, Unknown, 04/17/19) IBUPROFEN (Verified Allergy, Unknown, 10/22/18) NAPROXEN (Verified Allergy, Unknown, 10/22/18) COVID-19 Screening Contact w/high risk pt: No Recent Travel to affected area: No Experienced COVID-19 symptoms?: No COVID-19 symptoms experienced: Shortness of Breath, Cough 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 Now: No Reviewed Nursing Documentation: PMH: Agreed; PSxH: Agreed Nursing Documentation-PMH Hx Hypertension: Yes Hx Pacemaker: No Hx Asthma: Yes Hx COPD: Yes Hx Diabetes: No Hx Cancer: No Hx Gastrointestinal Problems: No Hx Dialysis: No Hx Neurological Problems: Yes Hx Cerebrovascular Accident: Yes - stroke Hx Seizures: No Hx Weakness: Yes Hx Neurologic Surgery: No Hx Brain Shunt: No Review of Systems All Other Systems: negative except mentioned in HPI Physical Exam Vital Signs Date Time Temp Pulse Resp B/P (MAP) Pulse Ox O2 Delivery O2 Flow Rate FiO2 04/22/20 09:37 98.2 90 17 156/92 (113) 96 Room Air Sp02 EP Interpretation: reviewed, normal General Appearance: alert, mild distress Head: atraumatic Eyes: bilateral eye normal inspection ENT: normal ENT inspection, hearing grossly normal, normal voice Neck: normal inspection, full range of motion, supple, no bony tend Respiratory: no respiratory distress, no retraction, wheezing - Mild Cardiovascular #1: regular rate, rhythm, no edema Gastrointestinal: soft, no hernia, other - Mild tender diffusely Genitourinary: no CVA tenderness Musculoskeletal: normal inspection, back normal, normal range of motion Neurologic: alert, responsive, speech normal, normal inspection Psychiatric: judgement/insight normal, anxious Skin: no rash Medical Decision Making Diagnostic Impression: Primary Impression: Abdominal pain Additional Impression: COPD (chronic obstructive pulmonary disease) ER Course Patient presents emergency department today complaint abdominal pain and some cough. Differential considerations include pneumonia bronchitis asthma as well as COPD gastritis chronic opiate dependence just name a few. Given the severity of the patient's presentation I felt this is a highly complex patient. This patient required extensive workup. Patient's laboratory work-up was essentially negative. Chest x-ray shows questionable atelectasis versus early infiltrate on the left. Because patient's cough congestion will start patient on Levaquin. Will start patient on albuterol and prednisone for cough. There is no evidence of sepsis with severe disease patient is comfortable. Will provide patient with 1 dose of nebulizer here. Patient is advised to follow up with primary doctor in 2-3 days and return the emergency room for any worsening symptoms and as needed. Labs Test 04/22/20 09:58 White Blood Count 3.9 K/UL (4.8-10.8) Red Blood Count 4.47 M/UL (4.20-5.40) Hemoglobin 10.9 G/DL (12.0-16.0) Hematocrit 37.1 % (37.0-47.0) Mean Corpuscular Volume 83 FL (80-99) Mean Corpuscular Hemoglobin 24.3 PG (27.0-31.0) Mean Corpuscular Hemoglobin Concent 29.4 G/DL (32.0-36.0) Red Cell Distribution Width 17.1 % (11.6-14.8) Platelet Count 342 K/UL (150-450) Mean Platelet Volume 6.9 FL (6.5-10.1) Neutrophils (%) (Auto) 38.9 % (45.0-75.0) Lymphocytes (%) (Auto) 41.1 % (20.0-45.0) Monocytes (%) (Auto) 15.7 % (1.0-10.0) Eosinophils (%) (Auto) 3.4 % (0.0-3.0) Basophils (%) (Auto) 0.9 % (0.0-2.0) Sodium Level 143 MMOL/L (136-145) Potassium Level 3.5 MMOL/L (3.5-5.1) Chloride Level 108 MMOL/L (98-107) Carbon Dioxide Level 26 MMOL/L (21-32) Anion Gap 9 mmol/L (5-15) Blood Urea Nitrogen 9 mg/dL (7-18) Creatinine 0.7 MG/DL (0.55-1.30) Estimat Glomerular Filtration Rate > 60 mL/min (>60) Glucose Level 109 MG/DL (74-106) Calcium Level 9.1 MG/DL (8.5-10.1) Total Bilirubin 0.4 MG/DL (0.2-1.0) Aspartate Amino Transf (AST/SGOT) 21 U/L (15-37) Alanine Aminotransferase (ALT/SGPT) 13 U/L (12-78) Alkaline Phosphatase 96 U/L (46-116) Troponin I 0.016 ng/mL (0.000-0.056) Pro-B-Type Natriuretic Peptide 1028 pg/mL (0-125) Total Protein 7.2 G/DL (6.4-8.2) Albumin 3.2 G/DL (3.4-5.0) Globulin 4.0 g/dL Albumin/Globulin Ratio 0.8 (1.0-2.7) Lipase 217 U/L (73-393) EKG Diagnostic Results Troponin ordered: Yes Rate: normal Rhythm: NSR ST Segments: no acute changes Other Impression Changes when compared to her previous EKG from November 2019 Last Vital Signs Date Time Temp Pulse Resp B/P (MAP) Pulse Ox O2 Delivery O2 Flow Rate FiO2 04/22/20 09:54 90 17 Room Air 04/22/20 09:54 98.2 156/92 96 Status: improved Disposition: HOME, SELF-CARE Condition: Stable Scripts Albuterol Sulfate (VENTOLIN HFA) 18 Gm Hfa.aer.ad 2 PUFFS INH EVERY 6 HOURS, #18 GM 0 Refills Prov: Conrad Garcia MD 04/22/20 Levofloxacin (LEVOFLOXACIN*) 500 Mg Tablet 500 MG ORAL DAILY for 7 Days, TAB Prov: Conrad Garcia MD 04/22/20 Prednisone* (PREDNISONE*) 20 Mg Tablet 40 MG ORAL DAILY for 5 Days, TAB Prov: Cornad Garcia MD 04/22/20 Acetaminophen With Codeine (T#4) (TYLENOL #4 TAB*) Y Tab 1 TAB ORAL Q8H PRN for For Pain, #14 TAB 0 Refills Prov: Conrad Garcia MD 04/22/20 Albuterol Sulfate* (ALBUTEROL SULFATE HHN*) 2.5 Mg/3 Ml Vial.neb 3 ML INH Q6H PRN for Shortness of Breath, #30 EA 0 Refills Prov: Conrad Garcia MD 04/22/20 Conrad Garcia MD Apr 22, 2020 10:04
[2020-04-22 10:11] LABS: BASOPHILS % (AUTO) 0.9 % (0.0-2.0); EOSINOPHILS % (AUTO) 3.4 % (0.0-3.0); HEMATOCRIT 37.1 % (37.0-47.0); HEMOGLOBIN 10.9 G/DL (12.0-16.0); LYMPHOCYTES % (AUTO) 41.1 % (20.0-45.0); MEAN CORPUSCULAR VOLUME 83 FL (80-99); MONOCYTES % (AUTO) 15.7 % (1.0-10.0); NEUTROPHILS % (AUTO) 38.9 % (45.0-75.0); PLATELET COUNT 342 K/UL (150-450); RED BLOOD COUNT 4.47 M/UL (4.20-5.40); RED CELL DISTRIBUTION WIDTH 17.1 % (11.6-14.8); WHITE BLOOD COUNT 3.9 K/UL (4.8-10.8)
[2020-04-22 10:22] LABS: ANION GAP 9 mmol/L (5-15); BLOOD UREA NITROGEN 9 mg/dL (7-18); CALCIUM 9.1 MG/DL (8.5-10.1); CARBON DIOXIDE 26 MMOL/L (21-32); CHLORIDE 108 MMOL/L (98-107); CREATININE 0.7 MG/DL (0.55-1.30); POTASSIUM 3.5 MMOL/L (3.5-5.1); SODIUM 143 MMOL/L (136-145)
[2020-04-22 10:27] LABS: ALANINE AMINOTRANSFERASE 13 U/L (12-78); ALBUMIN 3.2 G/DL (3.4-5.0); ALBUMIN/GLOBULIN RATIO 0.8 (1.0-2.7); ALKALINE PHOSPHATASE 96 U/L (46-116); ASPARTATE AMINO TRANSFERASE 21 U/L (15-37); BILIRUBIN,TOTAL 0.4 MG/DL (0.2-1.0)
--- NOTE | 2020-04-22 10:47 | NUR ---
assisted pt on bedside commode at this time.
--- NOTE | 2020-04-22 11:01 | NUR ---
ED Nurse Note: RESP Therapist called to administer hhn prior to pt d/c
[2020-04-22] MEDS ORDERED: ALBUTEROL2.5 MG/3 M INH (11:02)
[2020-04-22] MEDS ORDERED: PREDNISONE20 MG ORAL (11:02)
[2020-04-22] MEDS ORDERED: VENTOLIN HFA18 GM INH (11:02)
[2020-04-22] MEDS ORDERED: ACETAMINOPHEN-1 EAC2 ORAL (11:02)
[2020-04-22] MEDS ORDERED: LEVOFLOXACIN500 MG ORAL (11:02)
[2020-04-22] MEDS ORDERED: Albuterol ud Inhalation HHN ONE (11:15)
[2020-04-22 11:21] LABS: APPEARANCE,URINE SLIGHTLY CLOUDY; BILIRUBIN, URINE NEGATIVE (NEGATIVE); COLOR,URINE PALE YELLOW; GLUCOSE, URINE (UA) NEGATIVE (NEGATIVE); KETONES,URINE NEGATIVE (NEGATIVE); LEUKOCYTE ESTERASE ,URINE 1+ (NEGATIVE); NITRITE,URINE NEGATIVE (NEGATIVE); PH,URINE 7 (4.5-8.0); PROTEIN,URINE NEGATIVE (NEGATIVE); UROBILINOGEN,URINE NORMAL MG/DL (0.0-1.0)
--- NOTE | 2020-04-22 11:23 | NUR ---
pt getting albuterol tx in a closed room and will be dc'd home. updated daughter who is here waiting on her to be dc'd.
--- NOTE | 2020-04-22 11:25 | NUR ---
ER DISCHARGE NOTE: Patient is cleared to be discharged per ERMD, pt is aox4, on room air, with stable vital signs. pt's daughter was given dc and prescription instructions, daughter was able to verbalize understanding, pt id band and iv site removed without complications. pt is able to ambulate with steady gait. pt took all belongings.
--- NOTE | 2020-04-22 13:41 | Diagnostic Imaging Report ---
Indication: Chest pain Technique: XRAY Chest 1v Comparison: 12/28/2019 Findings: Hyperinflation is again seen. Noted is lucency in the apices, right greater than left suggesting bullous changes. Heart size and mediastinal contours are stable compared to the prior exam. There are atherosclerotic vessel calcifications. There are streaky opacities at the right base. No pneumothorax or pleural effusion. IMPRESSION: Streaky opacities at the right base which may be related to subsegmental atelectasis however developing pneumonia not excluded. Please correlate clinically. COPD with scarring and bullous changes in the apices, right greater than left.
--- NOTE | 2020-04-23 19:18 | Cardiology Report ---
APPROVED REPORT EKG Measurement Heart [id number] <Conclusion> Normal sinus rhythm Left ventricular hypertrophy with repolarization abnormality Inferolateral ischemia - possibly acute. Cannot rule out Septal infarct, age undetermined Abnormal ECG
== END 2020-04-22 11:25 | disposition home or self-care (01) ==
LOC: EDBD 09:52 → EMR 11:09
DX: R10.9 Unspecified abdominal pain (principal); J44.9 Chronic obstructive pulmonary disease, unspecified; Z88.0 Allergy status to penicillin; Z88.6 Allergy status to analgesic agent; I10 Essential (primary) hypertension; Z86.73 Personal history of transient ischemic attack (TIA), and cerebral infarction without residual deficits
CPT/HCPCS: 36415; 71045; 80053; 81003; 83690; 83880; 84484; 85025; 93005; 94640; 96361; 96372; 96374; 99284; J1170; J1200; J7030

== ENCOUNTER 2020-04-24 06:07 | Emergency (ER) | payer MEDICARE, OTHER ==
[~2020-04-24] VITALS: Ht 170.2 cm; Wt 54.4 kg
[~2020-04-24 06:07] MED LIST changes: +LEVOFLOXACIN500 MG ORAL
[2020-04-24 06:11] VITALS: BP 182/93
--- NOTE | 2020-04-24 06:19 | NUR ---
pt aox3 c/o abdominal. for a week. pt denies n/v/d. pt denies any injuries. pt lung sounds clear. respiration non labored. abdomen soft non distended. skin warm and dry. v/s stable. pt in no distress. will continue to monitor pt closely.
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
--- NOTE | 2020-04-24 06:42 | NUR ---
18g iv to lfa established. labs collected and sent to lab. ekg done, signed and given to md. pt remains connected to monitor. v/s stable. pt in no distress.
--- NOTE | 2020-04-24 06:55 | NUR ---
pt to ct scan via cart by electronic publishing specialist.
[2020-04-24 07:01] LABS: BASOPHILS % (AUTO) 1.2 % (0.0-2.0); EOSINOPHILS % (AUTO) 3.6 % (0.0-3.0); HEMATOCRIT 40.8 % (37.0-47.0); HEMOGLOBIN 11.9 G/DL (12.0-16.0); LYMPHOCYTES % (AUTO) 32.2 % (20.0-45.0); MEAN CORPUSCULAR VOLUME 83 FL (80-99); MONOCYTES % (AUTO) 13.1 % (1.0-10.0); PLATELET COUNT 328 K/UL (150-450); RED CELL DISTRIBUTION WIDTH 17.2 % (11.6-14.8); WHITE BLOOD COUNT 4.3 K/UL (4.8-10.8)
--- NOTE | 2020-04-24 07:02 | NUR ---
report given to Jadiel GUTIERREZ
[2020-04-24 07:06] LABS: APPEARANCE,URINE CLEAR; BILIRUBIN, URINE NEGATIVE (NEGATIVE); COLOR,URINE PALE YELLOW; GLUCOSE, URINE (UA) NEGATIVE (NEGATIVE); KETONES,URINE NEGATIVE (NEGATIVE); LEUKOCYTE ESTERASE ,URINE NEGATIVE (NEGATIVE); NITRITE,URINE NEGATIVE (NEGATIVE); PH,URINE 7 (4.5-8.0); PROTEIN,URINE NEGATIVE (NEGATIVE); UROBILINOGEN,URINE NORMAL MG/DL (0.0-1.0)
[2020-04-24 07:15] LABS: ANION GAP 11 mmol/L (5-15); BLOOD UREA NITROGEN 15 mg/dL (7-18); CALCIUM 9.6 MG/DL (8.5-10.1); CARBON DIOXIDE 26 MMOL/L (21-32); CHLORIDE 107 MMOL/L (98-107); CREATININE 0.9 MG/DL (0.55-1.30); POTASSIUM 3.5 MMOL/L (3.5-5.1); SODIUM 144 MMOL/L (136-145)
[2020-04-24 07:20] LABS: ALANINE AMINOTRANSFERASE 13 U/L (12-78); ALBUMIN 3.4 G/DL (3.4-5.0); ALBUMIN/GLOBULIN RATIO 0.8 (1.0-2.7); ALKALINE PHOSPHATASE 99 U/L (46-116); ASPARTATE AMINO TRANSFERASE 20 U/L (15-37); BILIRUBIN,TOTAL 0.4 MG/DL (0.2-1.0)
[2020-04-24] MEDS ORDERED: SIMETHICONE180 MG PO (07:20)
[2020-04-24] MEDS ORDERED: COLACE100 MG ORAL (07:20)
[2020-04-24] MEDS ORDERED: PREDNISONE20 MG ORAL (07:20)
[2020-04-24] MEDS ORDERED: LEVOFLOXACIN500 MG ORAL (07:20)
[2020-04-24] MEDS ORDERED: Levofloxacin 750mg tab ORAL ONE (07:30)
[2020-04-24] MEDS ORDERED: HYDROmorphone 1mg/ml Carpuject IM ONE (07:30)
--- NOTE | 2020-04-24 07:50 | Diagnostic Imaging Report ---
EXAM: CT Abdomen and Pelvis Without Intravenous Contrast CLINICAL HISTORY: PAIN TECHNIQUE: Axial computed tomography images of the abdomen and pelvis without intravenous contrast. CTDI is 4.2 mGy and DLP is 173.6 mGy-cm. One or more of the following dose reduction techniques were used: automated exposure control, adjustment of the mA and/or kV according to patient size, use of iterative reconstruction technique. COMPARISON: 12/17/19 FINDINGS: Lung bases: Bibasilar atelectasis/scarring. Again seen is mild emphysematous change ABDOMEN: Liver: Unremarkable. Gallbladder and bile ducts: Status post cholecystectomy. No ductal dilation. Pancreas: Prominent pancreatic duct again noted and unchanged. Spleen: Unremarkable. No splenomegaly. Adrenals: Unremarkable. No mass. Kidneys and ureters: Faint tiny nonobstructing right renal calculus. No left renal calculus. No evidence for obstructive uropathy. Stomach and bowel: Diverticulosis. No evidence for acute diverticulitis. Mild thickening of the stomach likely due to under distention. No focal small bowel dilatation. Mild retained stool. PELVIS: Appendix: Surgical sutures near the cecum reasonably from prior appendectomy. Bladder: Mild bladder wall thickening likely due to under distention. No stones. Reproductive: Status post hysterectomy. ABDOMEN and PELVIS: Intraperitoneal space: No free fluid. No free air. Bones/joints: Degenerative changes in the lumbar spine. Again seen is anterior displacement of L3 with respect to L4 with extensive endplate changes and vacuum disc phenomenon. Prior laminectomy defect in the lower lumbar spine again noted. No acute fracture. No dislocation. Soft tissues: Unremarkable. Vasculature: Redemonstration of mildly distended distal descending thoracic aorta, unchanged. Calcified atherosclerotic abdominal aorta. No abdominal aortic aneurysm. Lymph nodes: Unremarkable. No enlarged lymph nodes. IMPRESSION: 1. Tiny nonobstructing right renal calculus. 2. No left renal calculus or ureteral calculus. 3. Nonspecific bowel gas pattern with mild retained stool. 4. Diverticulosis. No CT evidence for acute diverticulitis. 5. Thickening of the bladder wall likely due to underdistention. 6. No free fluid or free air
--- NOTE | 2020-04-24 09:48 | Diagnostic Imaging Report ---
Procedure: XRAY Chest 1v Reason for study: Abdominal pain Comparison films: None. FINDINGS: A single one view chest is obtained. Vascularity is normal. Streaky atelectasis noted right lung base. There are some emphysematous changes in the right upper lung. Cardiac and mediastinal silhouette are within normal limits. CP angles are sharp. The bony thorax appear unremarkable. IMPRESSION: Emphysematous changes. Right basilar atelectasis.
== END 2020-04-24 07:57 | disposition home or self-care (01) ==
LOC: EMR 06:23
DX: G89.29 Other chronic pain (principal); R10.9 Unspecified abdominal pain; K59.00 Constipation, unspecified; J44.9 Chronic obstructive pulmonary disease, unspecified; Z76.5 Malingerer [conscious simulation]; M79.10 Myalgia, unspecified site; F11.20 Opioid dependence, uncomplicated; I10 Essential (primary) hypertension; Z86.73 Personal history of transient ischemic attack (TIA), and cerebral infarction without residual deficits; Z79.899 Other long term (current) drug therapy; Z88.0 Allergy status to penicillin; Z88.1 Allergy status to other antibiotic agents; Z88.6 Allergy status to analgesic agent; Z88.8 Allergy status to other drugs, medicaments and biological substances
CPT/HCPCS: 36415; 71045; 74176; 80053; 81003; 83690; 84484; 85025; 93005; 96372; 99284; J1170; J7512

== ENCOUNTER 2020-05-15 17:32 | Emergency (ER) | payer MEDICARE, OTHER ==
[~2020-05-15] VITALS: Ht 170.2 cm; Wt 54.4 kg
[2020-05-15 17:27] VITALS: BP 134/60
[~2020-05-15 17:32] MED LIST changes: +SIMETHICONE180 MG PO
--- NOTE | 2020-05-15 18:09 | Emergency Room Report ---
History of Present Illness General Chief Complaint: Pain Source: Patient, EMS Present Illness HPI 69-year-old female presents for evaluation. Brought in by EMS from home. Well- known to [facility] [place]. Has been here multiple times for pain related complaints. History of lupus. History of COPD. Complaining of right shoulder pain. States she has had this pain for months but has not had it evaluated. Throbbing, 7 out of 10, nonradiating. Denies any fall or injury. No other aggravating relieving factors. Denies any other associated symptoms Allergies: Coded Allergies: KETOROLAC TROMETHAMINE (Verified Allergy, Severe, Anaphylaxis, 10/22/18) PENICILLINS (Verified Allergy, Severe, Anaphylaxis, 10/22/18) TETRACYCLINE (Verified Allergy, Severe, Anaphylaxis, 10/22/18) HALOPERIDOL LACTATE (Verified Allergy, Intermediate, Anaphylaxis, 10/22/18) ERYTHROMYCIN BASE (Verified Allergy, Mild, 10/22/18) AMPICILLIN (Verified Allergy, Unknown, 10/22/18) ASPIRIN (Verified Allergy, Unknown, 10/22/18) AZITHROMYCIN (Unverified Allergy, Unknown, 04/17/19) IBUPROFEN (Verified Allergy, Unknown, 10/22/18) NAPROXEN (Verified Allergy, Unknown, 10/22/18) COVID-19 Screening Contact w/high risk pt: No Recent Travel to affected area: No Experienced COVID-19 symptoms?: No COVID-19 symptoms experienced: Shortness of Breath, Cough COVID-19 Testing performed 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 OR 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 Patient History Past Medical History: none, HTN, asthma, COPD, other - lupus Past Surgical History: none Pertinent Family History: none Social History: Denies: smoking, alcohol use, drug use Now: No Immunizations: UTD Reviewed Nursing Documentation: PMH: Agreed; PSxH: Agreed Nursing Documentation-PMH Hx Hypertension: Yes Hx Pacemaker: No Hx Asthma: Yes Hx COPD: Yes Hx Diabetes: No Hx Cancer: No Hx Gastrointestinal Problems: No Hx Dialysis: No Hx Neurological Problems: Yes Hx Cerebrovascular Accident: Yes - stroke Hx Seizures: No Hx Weakness: Yes Hx Neurologic Surgery: No Hx Brain Shunt: No Review of Systems All Other Systems: negative except mentioned in HPI Physical Exam Vital Signs Date Time Temp Pulse Resp B/P (MAP) Pulse Ox O2 Delivery O2 Flow Rate FiO2 05/15/20 17:27 98.4 60 20 134/60 (84) 98 Room Air Sp02 EP Interpretation: reviewed, normal General Appearance: no apparent distress, alert, GCS 15, non-toxic Head: normocephalic, atraumatic Eyes: bilateral eye normal inspection, bilateral eye PERRL ENT: hearing grossly normal, normal pharynx, no angioedema, normal voice Neck: full range of motion, supple/symm/no masses Respiratory: chest non-tender, lungs clear, normal breath sounds, speaking full sentences Cardiovascular #1: regular rate, rhythm, no edema Cardiovascular #2: 2+ carotid (R), 2+ carotid (L), 2+ radial (R), 2+ radial (L), 2+ dorsalis pedis (R), 2+ dorsalis pedis (L) Gastrointestinal: normal bowel sounds, non tender, soft, non-distended, no guarding, no rebound Rectal: deferred Genitourinary: normal inspection, no CVA tenderness Musculoskeletal: back normal, normal range of motion, gait/station normal, tender - R shoulder Neurologic: alert, motor strength/tone normal, oriented x3, sensory intact, responsive, speech normal Psychiatric: judgement/insight normal, memory normal, mood/affect normal, no suicidal/homicidal ideation Reflexes: 3+ bicep (R), 3+ bicep (L), 3+ tricep (R), 3+ tricep (L), 3+ knee (R), 3+ knee (L) Skin: no rash Lymphatic: no adenopathy Medical Decision Making Diagnostic Impression: Primary Impression: Chronic pain Qualified Codes: G89.29 - Other chronic pain Additional Impression: Shoulder pain Qualified Codes: M25.511 - Pain in right shoulder; G89.29 - Other chronic pain ER Course Hospital Course 69-year-old female presents with right shoulder pain. No fall or injury Differential diagnoses include: Fracture, dislocation, sprain, contusion Clinical course Patient placed on stretcher. After initial history and physical, I ordered pain medications and Xrays of R shoulder X-rays show no acute fracture dislocation. Chronic remodeling likely secondary to chronic rotator cuff pathology. Discussed findings with patient. Will provide Ortho referral. Patient ty pically requests additional pain meds and always requests a prescription. Patient recommended to follow-up with her PMD Diagnosis - chronic pain, shoulder pain Stable and discharged to home. apply ice, keep elevated. weight bear as tolerated. Followup with PMD. Return to ED if symptoms recur or worsen Other X-Ray Diagnostic Results Other X-Ray Diagnostic Results : X-Ray ordered: R shoulder # of Views/Limited Vs Complete: 3 View Indication: Pain EP Interpretation: Yes Interpretation: no dislocation, no soft tissue swelling, no fractures Impression: No acute disease Electronically Signed by: Electronically signed by Stephen Win MD Last Vital Signs Date Time Temp Pulse Resp B/P (MAP) Pulse Ox O2 Delivery O2 Flow Rate FiO2 05/15/20 17:27 98.4 60 20 134/60 (84) 98 Room Air Status: improved Disposition: HOME, SELF-CARE Condition: Stable Stephen Win MD May 15, 2020 18:08
[2020-05-15 18:47] VITALS: BP 134/60
[2020-05-15] MEDS ORDERED: Tylenol #3 tab (300mg/30mg) ORAL ONE (19:00)
--- NOTE | 2020-05-15 20:19 | Diagnostic Imaging Report ---
EXAM: XR Right Shoulder Complete, 2 or More Views CLINICAL HISTORY: PAIN TECHNIQUE: Two or more views of the right shoulder. COMPARISON: Right shoulder x-rays of 11/12/2019 FINDINGS: Bones/joints: Generalized demineralization. No fracture or malalignment. Narrowing of the subacromial space with remodeling of the undersurface of the acromion is present. Soft tissues: Unremarkable. IMPRESSION: Evidence of chronic rotator cuff pathology with remodeling of the undersurface of the acromion. No fracture or malalignment shown.
== END 2020-05-15 18:55 | disposition home or self-care (01) ==
LOC: EDBD 17:32 → EMR 18:48
DX: M25.511 Pain in right shoulder (principal); G89.29 Other chronic pain; J44.9 Chronic obstructive pulmonary disease, unspecified; Z88.0 Allergy status to penicillin; Z88.6 Allergy status to analgesic agent; Z88.8 Allergy status to other drugs, medicaments and biological substances; I10 Essential (primary) hypertension; Z86.73 Personal history of transient ischemic attack (TIA), and cerebral infarction without residual deficits
CPT/HCPCS: 99283